=== PATIENT | male | born 1970 | race Caucasian/White ===

== ENCOUNTER → 2020-05-15 08:18 | Outpatient (BNVA) | payer MEDICAID, SELFPAY | PROVIDERS: PCP Internal Medicine; Visit Provider Orthopaedic Surgery | DX: G57.93 Unspecified mononeuropathy of bilateral lower limbs (principal) | CPT/HCPCS: 99212 ==

== ENCOUNTER 2020-05-23 09:08 | Outpatient (REF) | payer MEDICAID, SELFPAY ==
--- NOTE | 2020-05-23 09:42 | XR_ITS ---
EXAMINATION: XR WRIST, RIGHT CLINICAL INFORMATION: Right wrist pain. COMPARISON: No priors. TECHNIQUE: PA, lateral, and oblique views of the right wrist. FINDINGS: The bones and soft tissues are normal. No fracture. Alignment is anatomic with normal joint spaces. No erosions or abnormal soft tissue calcifications. Bone density is preserved. No lytic or blastic osseous lesions. XR/XR wrist RT min 3V IMPRESSION: Right wrist: No fracture or malalignment.
== END 2020-05-23 09:09 | disposition home or self-care (01) ==
LOC: HO.HOSX 09:08
PROVIDERS: Visit Provider Orthopaedic Surgery
DX: M67.431 Ganglion, right wrist (principal); M79.601 Pain in right arm
CPT/HCPCS: 73110; 99202

== ENCOUNTER 2020-06-19 07:09 | Outpatient (REF) | payer MEDICAID, SELFPAY ==
--- NOTE | 2020-06-19 | MR_ITS ---
EXAMINATION: MR LUMBAR SPINE WITHOUT CONTRAST CLINICAL INFORMATION: Left radiculopathy. COMPARISON: Lumbar spine x-ray 08/14/2017 TECHNIQUE: MRI of the lumbar spine was obtained using routine sequences without contrast. FINDINGS: There is normal lumbar lordosis. The vertebral heights, alignment and disc heights are normal. There is minimal disc desiccation change at the L5-S1 disc level. The T12-L1, L1-L2, L2-L3, and L3-L4 disc levels are unremarkable. At L4-L5 disc level, there is minimal flattening of the ventral thecal sac from minimal bulge but no spinal canal stenosis. The neural foramina are patent bilaterally. At L5-S1 disc level, there is minimal disc bulge flattening the ventral thecal sac but no disc herniation seen. The bone marrow signal is slightly heterogeneous but no focal lesion seen. Conus medullaris terminates at L1 and appears normal in morphology. The paravertebral soft tissues are normal. MR/MR lumbar spine wo con IMPRESSION: Mild disc desiccation change at L5-S1 disc level with minimal bulges at L4-L5 and L5-S1 disc levels.
== END 2020-06-19 07:10 | disposition home or self-care (01) ==
LOC: HO.MRI 07:09
PROVIDERS: Visit Provider Internal Medicine
DX: M54.16 Radiculopathy, lumbar region (principal)
CPT/HCPCS: 72148

== ENCOUNTER 2020-07-11 09:28 | Outpatient (REF) | payer MEDICAID, SELFPAY ==
--- NOTE | 2020-07-11 09:45 | EMG_ITS ---
Right median and ulnar motor and sensory studies were performed. Right radial sensory study was performed and paraspinal muscles were tested. IMPRESSION: 1. Mild right median neuropathy across carpal tunnel. 2. Mild right ulnar neuropathy across cubital tunnel. MD NIKO Bella/ALANNAH / [id number]
== END 2020-07-11 09:29 | disposition home or self-care (01) ==
LOC: HO.NEURO 09:28
PROVIDERS: Visit Provider Orthopaedic Surgery
DX: R20.0 Anesthesia of skin (principal); R20.2 Paresthesia of skin
CPT/HCPCS: 95886; 95909

== ENCOUNTER → 2020-07-23 10:35 | Outpatient (BNVA) | payer MEDICAID, SELFPAY | PROVIDERS: PCP Internal Medicine; Visit Provider Orthopaedic Surgery | DX: M79.601 Pain in right arm (principal); M67.431 Ganglion, right wrist; G56.01 Carpal tunnel syndrome, right upper limb; G56.21 Lesion of ulnar nerve, right upper limb | CPT/HCPCS: 99212 ==

== ENCOUNTER → 2020-09-03 09:51 | Outpatient (BNVA) | payer MEDICAID, SELFPAY | PROVIDERS: Visit Provider Physician Assistant | DX: M67.431 Ganglion, right wrist (principal); R20.0 Anesthesia of skin; R20.2 Paresthesia of skin; G56.01 Carpal tunnel syndrome, right upper limb; G56.21 Lesion of ulnar nerve, right upper limb | CPT/HCPCS: 99212 ==

== ENCOUNTER 2020-09-05 08:12 | Day surgery (SDC) | payer MEDICAID, SELFPAY ==
[2020-08-08 15:15] VITALS: BMI 20.7
--- NOTE | 2020-08-14 10:47 | P.CONAN_ITS ---
HPI - Anesthesia Eval Consult details Narrative: 50yo M for Cubital Tunnel Release with Verse Ulmar Nerve Transpos ition PMFSH Active Problems Active Problems: All Active Problems (Updated 08/08/20 @ 15:16 by Micaela Andino) Ganglion cyst of volar aspect of right wrist (Acute) Right upper limb pain (Acute) Numbness and tingling in right hand (Acute) Carpal tunnel syndrome of right wrist (Acute) Cubital tunnel syndrome on right (Acute) Past Medical History Medical History (Updated 08/08/20 @ 15:16 by Micaela Andino) Bulging lumbar disc Surgical History Surgical History (Updated 08/08/20 @ 15:16 by Micaela Andino) H/O arthroscopy of left knee Social History Social History (Updated 08/08/20 @ 15:19 by Micaela Andino) Smoking Status: Current every day smoker Packs Per Day: 1 Cigarettes Per Day: 20.0 Years Smoked: 34 Use of substances other than those prescribed or required for medical reasons: No Have you been hit, kicked, punched, or otherwise hurt by someone within the past year? 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
[2020-09-05 08:42] VITALS: BP 158/97; PULSE 99; RESP 20; TEMP 36.3; O2SAT 96
[2020-09-05] MEDS: Lactated Ringers 1,000 ML 100 ML IVCONT (09:01)
--- NOTE | 2020-09-05 10:42 | HO.ANESPROP2 ---
[facility] Active Problems Active Problems: All Active Problems (Updated 08/08/20 @ 15:16 by Micaela Andino) Ganglion cyst of volar aspect of right wrist (Acute) Right upper limb pain (Acute) Numbness and tingling in right hand (Acute) Carpal tunnel syndrome of right wrist (Acute) Cubital tunnel syndrome on right (Acute) Past Medical History Medical History Bulging lumbar disc Surgical History Surgical History H/O arthroscopy of left knee Social History Social History Are you a primary customer care associate to a significant other at home: No Do you presently have visiting nurse or other home services: No Smoking Status: Current every day smoker Packs Per Day: 1 Cigarettes Per Day: 20.0 Years Smoked: 34 Use of substances other than those prescribed or required for medical reasons: No Have you been hit, kicked, punched, or otherwise hurt by someone within the past year? 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 Allergies Allergy/AdvReac Type Severity Reaction Status Date / Time No Known Allergies Allergy Verified 07/23/20 11:21 Active Medications: Current Medications Generic Name Dose Route Start Last Admin Trade Name Freq PRN Reason Stop Dose Admin Albuterol Sulfate 2.5 mg 09/05/20 08:40 Albuterol Sulfate (0.083%) 2.5 Mg/3 Ml Vial.Neb INHALE ONCE PRN Shortness of Breath/Wheezing Lactated Ringer's 1,000 mls @ 20 mls/hr 09/04/20 14:15 Lr IVCONT .Q24H JOHNATHAN Lactated Ringer's 1,000 mls @ 100 mls/hr 09/05/20 08:45 09/05/20 09:01 Lr IVCONT 100 mls/hr .Q10H JOHNATHAN Administration Home Medications Medication Instructions Recorded Confirmed Last Taken Type No Known Home Meds 05/15/20 08/08/20 Unknown History Exam Exam Date and Time: September 05, 2020 1042 Height,Weight and Vital Signs: Height 5 ft 10 in Weight 65.771 kg Last Vital Signs Temp 97.4 F 09/05/20 08:42 Pulse 99 09/05/20 08:42 Resp 20 09/05/20 08:42 BP 158/97 H 09/05/20 08:42 Pulse Ox 96 09/05/20 08:42 Airway Mallampati Class: II TM Dist: >3cm Neck ROM: Full Loose/Missing/Broken Teeth: Yes (2 teeth remaining) Assessment and Plan Assessment Anesthesia Assessment: Anesthesia Plan Discussed, Smoking Cess. Discussed and Chart Reviewed Final Anesthetic Review NPO: Yes ASA Class: II Final Preanesthetic Review: No Changes in Pt Med Stat, Meds/Allgs Chart Reviewed, Consent Obtained/Reviewed and Anes Risks/Benef Reviewed Patient Risk: Low Procedure Risk: Low Anesthetic Plan Anesthetic Plan: GA Disposition: Standard PACU
--- NOTE | 2020-09-05 11:11 | W.PM.OPN ---
Operative Note Operative Note Date of Service: 09/05/20 Narrative: Operative Note Narrative: Preop diagnosis: 1. Right Cubital tunnel syndrome 2. Right carpal tunnel syndrome Postop diagnosis: Same Procedure: 1. Right Cubital Tunnel Release 2. Right carpal tunnel release Surgeon: Theresa Mathis MD Anesthesia: General Findings: Thickened transverse carpal ligament. Thickening and fibrosis about the ulnar nerve at the cubital tunnel Implants: none Tourniquet time: 24 minutes EBL: 5.0 ml Specimen: none Drains: None Complications: None Disposition: Brought to the recovery room in stable condition Plan: Follow-up in 10-14 days for wound check, and suture removal Indications: The patient is 50 years old with right carpal tunnel syndrome and right cubital tunnel syndrome unresponsive to non operative management . The risks and benefits of operative treatment, including but not limited to risk of damage to blood vessels, nerves, tendons, infection, recurrence, persistent pain or numbness, incomplete resolution of preoperative symptoms, or need for further surgery were discussed with the patient and they wished to proceed with surgery. Procedure: Once consent was obtained patient was brought back to the operating suite and placed in the operating table in a supine position. Perioperative antibiotics and anesthesia was administered by the anesthesia team. The limb was prepped and draped in a standard surgical fashion, and a sterile tourniquet applied to the proximal aspect of the right upper extremity. The limb was elevated exsanguinated with Esmarch bandage and the tourniquet inflated to 250 mm of mercury for a total tourniquet time of 24 minutes. A 6 cm gently curved but longitudinally oriented incision was made centered over the cubital tunnel of the right upper extremity. Incision was made through the skin to the subcutaneous tissues using a # 15 Blade. I then dissected down to the level of the medial epicondyle and the cubital tunnel using tenotomy scissors. Care was taken to protect the lateral antebrachial cutaneous nerve. The ulnar nerve was identified just posterior to the medial intermuscular septum. Small vessel loop was passed behind the ulnar nerve and used to apply gentle traction to facilitate our release. The ulnar nerve was released in a proximal to distal direction using tenotomy in iris scissors while directly visualizing and protecting the ulnar nerve. Thickening and fibrosis was appreciated about the ulnar nerve as it passed through the cubital tunnel. The ulnar nerve was assessed as I passed the elbow through full flexion and extension and was found to remain stable within its groove. Once assured that we had a good block, a 1.5 cm longitudinal incision was made centered over the right carpal tunnel. The incision was made through the skin to the subcutaneous tissues using a #15 blade. Dissection was made down to the level of the transverse carpal ligament with care being taken to protect the palmar cutaneous nerve. Once the transverse carpal ligament was clearly visualized, a longitudinal incision was made in the transverse carpal ligament 1st using a #15 blade, then using tenotomy scissors under direct visualization. Care was taken to look for and protect the motor branch of the median nerve when seen in this area. Once satisfied with our carpal tunnel release the wound was irrigated with normal saline. At this point the tourniquet was deflated and hemostasis obtained with a brief period of local pressure and bipolar electrocautery. The wound was copiously irrigated with normal saline. The subcutaneous layer was closed with 4-0 Vicryl suture, and the skin edges were reapproximated with 5-0 nylon suture. The wound was infiltrated with some 0.25% plain Marcaine for postop pain control and sterile dressings and a posterior splint was applied. The patient appears to have tolerated the procedure well and with no complications. All digits were well vascularized conclusion of the case.
[2020-09-05 12:49] VITALS: BP 139/91; PULSE 80; RESP 20; TEMP 36.4; O2SAT 100
--- NOTE | 2020-09-05 12:53 | MHC.SHP ---
Pre-Procedural Eval Section B Chief Complaint: carpal tunnel,ulnar nerve,right arm pain Allergies: Allergies Allergy/AdvReac Type Severity Reaction Status Date / Time No Known Allergies Allergy Verified 07/23/20 11:21 Plan I have reviewed the history and physical and performed a pertinent physical examination on my patient. No changes have occurred unless specified.
[2020-09-05 12:54] VITALS: BP 121/84; PULSE 79; RESP 18; O2SAT 99
[2020-09-05 12:59] VITALS: BP 128/88; PULSE 80; RESP 16; O2SAT 100
[2020-09-05 13:04] VITALS: BP 136/79; PULSE 89; RESP 18; O2SAT 100
[2020-09-05 13:19] VITALS: BP 143/82; PULSE 82; RESP 16; O2SAT 100
== END 2020-09-05 13:48 | disposition home or self-care (01) ==
PROVIDERS: PCP Internal Medicine; Visit Provider Orthopaedic Surgery
PROC: (CPT 64718; principal; 2020-09-05 11:00)
PROC: (CPT 64721; 2020-09-05 11:00)
DX: G56.01 Carpal tunnel syndrome, right upper limb (principal); G56.21 Lesion of ulnar nerve, right upper limb; F17.210 Nicotine dependence, cigarettes, uncomplicated
CPT/HCPCS: 64721; 64718; J0690; J1100; J2250; J2370; J2405; J3010

== ENCOUNTER → 2020-09-16 09:58 | Outpatient (BNVA) | payer MEDICAID, SELFPAY | PROVIDERS: Visit Provider Orthopaedic Surgery | DX: G56.01 Carpal tunnel syndrome, right upper limb (principal); G56.21 Lesion of ulnar nerve, right upper limb | CPT/HCPCS: 99212 ==

== ENCOUNTER 2020-10-31 08:03 | Outpatient (REF) | payer MEDICAID, SELFPAY ==
--- NOTE | 2020-10-31 08:21 | EMG_ITS ---
Left median and ulnar motor and sensory studies were performed. Left radial sensory study was performed and paraspinal muscles were tested with a needle. IMPRESSION: 1. [id number] left median neuropathy across carpal tunnel. 2. Mild left ulnar neuropathy across cubital tunnel. 3. Underlying axonal sensory motor peripheral neuropathy. MD NIKO Bella/ALANNAH / [id number]
== END 2020-10-31 08:04 | disposition home or self-care (01) ==
LOC: HO.NEURO 08:03
PROVIDERS: PCP Internal Medicine; Visit Provider Orthopaedic Surgery
DX: R20.0 Anesthesia of skin (principal); R20.2 Paresthesia of skin
CPT/HCPCS: 95886; 95909

== ENCOUNTER → 2020-11-06 11:39 | Outpatient (BNVA) | payer MEDICAID, SELFPAY | PROVIDERS: Visit Provider Orthopaedic Surgery ==

== ENCOUNTER 2020-12-16 08:30 | Outpatient (RCR) | payer MEDICAID, SELFPAY ==
--- NOTE | 2020-12-16 09:45 | MHC.OT.OD ---
[address] [phone] F: [phone] Occupational Therapy Daily Note Start Time: 0800 End Time: 844 Visit Duration: 45 Billable Time: 45 Date of Evaluation: 11/13/20 Treatments to Date: 7 Cancellations to Date: 1 No Shows to Date: Authorized Treatment: Insurance End Date: Subjective: Pt reports he missed his last appt due to his transportation not showing up. Right dorsal ring PP abrasion this AM.. must have been while I was walking Pt reports cont night numbness with sleeping with elbows flexed. Pain Score: 3 Pain Location: right lateral elbow>medial and carpal wrist Objective: Pt walking with normal arm swing. Right hand PP lightly bloodied RF abrasions noted. Pt washed hands at sink. Plastic bandaid applied. Pt demo HEP , pectoral ms stretch , scap add. Pt added arm circles. Pt practice with tendon glides and nerve glides. Practice with P/AROM for wrist ext bilateral Recommended Heley Middleton elbow brace, [employer] , [employer]. Tests and Measures: 01/16/21 Block and Box test right 56 blocks....left dominant 59 blocks AROM wrist 55/60 deg bilateral 55 deg wrist ext. Plastic Bubble Packer right 85 lb ......dominant left 95 lb Lat pinch 13 lb Quick DASH 20 pts Quick DASH 47 pts Assessment: C/o pain significantly improved to low at end ranges of right elbow and wrist flexion and ext. ROM, and strength WNL. Sensation on right improved. Pt reports continued night bilateral paresthesia with elbow flexion. Goals met for ROM,dexterity ,hand strength and function. Con't pain limiting function of non dominant right hand and stiff wrist Short Term Goals: Demo indep with AROM , tendon glides and submax nerve glide ex Met Demo indep with ulnar nerve protection tech with daily activities Block and box test with > 50 blocks in 60 sec Met Quick DASH to <40 pts Met Senior Care Goals: Dec complaint of right wrist and elbow pain to less than 3/10 with daily activities with modifications as needed Right wrist flexion to 60 deg (considered met 55 deg bilateral) Right disc jockey to >45 lb Met Lat pinch to > 8 lb Met Quick DASH to <30 pts Met Plan of Care: D/C D/C Today: Treatment Plan: Therapeutic Exercise Therapeutic Activity Home Exercise Program Splinting Neuro Re-ed Patient Education Desensitization/Sensory Re-ed ADL Training Ultrasound NMES Paraffin Fluidotherapy MHP Cold Packs Joint Mobilization Soft Tissue Mobilization Kinesiotaping Treatment Plan Comments: Electronically Signed By: Valencia Haynes OT CHT CLT Reviewed/agree with student documentation: N/A Therapist:
== END 2020-12-16 09:46 | disposition other institution (70) ==
LOC: HO.OT 08:30
PROVIDERS: PCP Internal Medicine; Visit Provider Orthopaedic Surgery
DX: M79.601 Pain in right arm (principal); G56.01 Carpal tunnel syndrome, right upper limb; G56.21 Lesion of ulnar nerve, right upper limb
CPT/HCPCS: 29130; 97035; 97110; 97140; 97167; 97760

== ENCOUNTER → 2020-12-23 11:09 | Outpatient (BNVA) | payer MEDICAID, SELFPAY | PROVIDERS: Visit Provider Orthopaedic Surgery | DX: G56.23 Lesion of ulnar nerve, bilateral upper limbs (principal); G56.03 Carpal tunnel syndrome, bilateral upper limbs | CPT/HCPCS: 99212 ==

== ENCOUNTER 2020-12-29 11:40 | Emergency (ER) | payer MEDICAID, SELFPAY ==
--- NOTE | ~2020-12-29 | XR_ITS ---
EXAMINATION: CR CHEST CLINICAL INFORMATION: Chest pain. COMPARISON: Chest x-ray dated 09/02/2019. TECHNIQUE: AP portable upright view of the chest was obtained. FINDINGS: EKG leads overlie the chest. The cardiomediastinal silhouette is within normal limits in size. Lungs bilaterally are symmetrically mildly hyperinflated with thickening of the central airways, perhaps related to reactive airways disease/bronchitis. No focal consolidation, effusion or pneumothorax is seen. Bony structures are unremarkable. XR/XR chest 1V IMPRESSION: Lung findings suggestive of reactive airways disease or bronchitis. Clinical correlation requested.
[2020-12-29 11:50] VITALS: BP 126/83; BP 133/85; PULSE 86; PULSE 96; RESP 18; TEMP 36.9; O2SAT 98; BMI 15.7
--- NOTE | 2020-12-29 11:54 | ECG_ITS ---
Test Reason : CHEST PAIN Blood Pressure : / mmHG Vent. Rate : 080 BPM Atrial Rate : 080 BPM P-R Int : 162 ms QRS Dur : 094 ms QT Int : 396 ms P-R-T Axes : 059 066 057 degrees QTc Int : 456 ms Normal sinus rhythm Normal ECG When compared with ECG of 02-SEP-2019 18:38, No significant change was found Referred By: Generic ED Physician Electronically Signed By:SALBADOR CORBIN
--- NOTE | 2020-12-29 12:30 | ED_ITS ---
HPI - General Adult General Chief complaint: Nausea/Vomiting/Diarrhea Stated complaint: vomiting/chest pain Time Seen by Provider: 12/29/20 12:30 Source: patient Mode of arrival: ambulatory Limitations: no limitations History of Present Illness HPI narrative: [age] year male presents to ED for left-sided chest pain ( acid burning sensation) for 2 days and also 3 episodes of vomiting tad blood over the past 2 days after going on an alcohol drinking binge. Patient states 2 days ago he was drinking alcohol and then had 2 episodes of vomiting blood. Patient states this [place] around [place] and had 1 episode of vomiting tad blood. Patient denies any rectal bleeding, fever, or chills. Patient states no shortness of breath. Related Data Previous Rx's Medication Instructions Recorded hydrocodone 5 mg-acetaminophen 325 1 - 2 tab PO Q6H PRN #20 tab 09/05/20 mg tablet aluminum-mag hydroxide-simethicone 10 ml PO Q6H PRN #30 ml 12/29/20 200 mg-200 mg-20 mg/5 mL oral susp (Maalox Advanced) famotidine 20 mg tablet (Pepcid) 20 mg PO BID 10 Days #20 tab 12/29/20 Allergies Allergy/AdvReac Type Severity Reaction Status Date / Time No Known Allergies Allergy Verified 12/29/20 11:50 Review of Systems Review of Systems: Yes all other systems are reviewed and are negative Constitutional: Constitutional: Reports as per HPI and Reports no additional constitutional complaints Eyes: Eyes: Reports as per HPI and Reports no additional eye complaints ENT: Reports system reviewed and no additional complaints, except as documented and Reports as per HPI Cardiovascular: Cardiovascular: Reports as per HPI, Reports no additional cardiovascular complaints and Reports chest pain (left sided chest pain descrbed as acid) Respiratory: Respiratory: Reports as per HPI and Reports no additional respiratory complaints Gastrointestinal: Gastrointestinal: Reports as per HPI and Reports no additional gastrointestinal complaints Genitourinary: Genitourinary: Reports no additional male genitourinary complaints and Reports as per HPI Musculoskeletal: Musculoskeletal: Reports no additional musculoskeletal comp laints and Reports as per HPI Neurologic: Reports system reviewed and no additional complaints, except as documented and Reports as per HPI Psychiatric: Psychiatric: Reports no additional psychiatric complaints and R eports as per HPI PMFSH Past Medical History Medical History Bulging lumbar disc Surgical History H/O arthroscopy of left knee Social History Social History Are you a primary career services manager to a significant other at home: No Do you presently have visiting nurse or other home services: No Alcohol intake: current Alcohol intake frequency: a few times a month Patient Tobacco Use Status: Current everyday Tobacco user Cigarette Packs Per Day: 1 Cigarettes Per Day: 20.0 Years Smoked: 34 Use of substances other than those prescribed or required for medical reasons: No Advance Directives: No Advance Directives Information Provided: No 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al status: unemployed 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 Physical Exam Vital Signs: Vital Signs: Last Vital Signs Temp 98.5 F 12/29/20 11:50 Pulse 72 12/29/20 14:00 Resp 18 12/29/20 14:00 BP 126/80 12/29/20 14:00 Pulse Ox 99 12/29/20 14:00 Body Mass Index 15.7 Const: General: cooperative, healthy appearing, comfortable, no acute distress, well developed and awake Orientation/consciousness: patient oriented x3 HENMT: Head: Yes normal to inspection, Yes No palpable skull fracture present, Yes normocephalic, Yes atraumatic and No abrasion Eyes: General: appearance normal, both eyes and all related structures Neck: Neck: Yes normal visual inspection, Yes full ROM, Yes no lymphadenopathy, Yes no meningeal signs, Yes trachea midline, Yes supple and No tender Chest: Chest palpation & inspection: normal inspection of the chest and normal palpation of entire chest wall Resp: Effort & Inspection: normal respiratory effort and able to speak in complete sentences Auscultation: clear to auscultation bilaterally Cardio: Jugular venous distension: no JVD Heart sounds: S1 normal heart sound present and S2 normal heart sound present GI: Inspection: Yes normal to inspection and No abdominal wall ecchymosis Palpation (GI): Soft to palpation, not firm, nontender, no guarding and not rigid : General: No CVA tenderness and Yes no CVA tenderness Back/Spine/Pelvis: Back: no CVA tenderness, No CVA tenderness and No back tenderness Skin: General skin exam: no rashes or lesions noted and elasticity normal Neuro: General: patient oriented x3, gait normal, no meningeal signs and CN's II-XI intact bilaterally Cranial nerves: Yes CN's II-XII intact bilaterally Extrem: General: Yes normal to inspection and Yes full ROM Psych: Appearance: grossly normal, well kempt and not disheveled Course Course Course Narrative: Patient have EKG, troponin, and be given GI cocktail. EKG ordered. Reevaluation(s) Reevaluation #1: After a GI cocktail patient states he no longer has any abdominal or chest pain. No longer nauseous. Patient like to be discharged. Rectal exam was done. Waiting for stool guaiac. Patient did not have 1 episode of emesis during ED visit. Patient watching television on bed. Patient not any distress Time: 20:26 Reevaluation #2: Spoke with Dr. Arreola of trade sales assistant and she recommended patient should be admitted at least for endoscope eat due to medical history of vomiting blood and history of alcoholism although presently patient is hemodynamically stable. She states if patient does not want to be admitted patient should be discharged with PPI. I discussed admission with patient and patient refused admission and preferred to be discharged and follow-up as outpatient. Patient was educated on Jacquelyn Chacko Tear or Boerheave, but he refused. Patient informed to return to the ED immediately if symptoms worsen. Stool guaiac negative. Time: 15:08 Reevaluation #3: Upon re-evaluation of labs I have realized there was no troponin lab results. troponin was ordered but did not go to the system ( s [facility]) so it was not done. . Patient was called and informed to come back to the ER so he can have troponin ( due to him stating chest pain) drawn but patient states he lives far and does not want to come back to the ED. Patient was informed troponin usually done to make sure he was not having a heart attack. . Patient was informed he should go to the nearest hospital near his house to get troponin done and patient agreeable with plan. Symptoms most likely were due to Gastrists and very unlikely MA, but due to chest pain complaint I wanted troponin to be done. Time: 17:08 Medical Decision Making MDM Narrative Medical decision making narrative: Alcoholic gastritis Lab Data Result diagrams: 12/29/20 12:26 12/29/20 12: Labs: Lab Results 08/15/21 08/15/21 08/15/21 Range/Units 12:26 12:26 12:26 WBC 7.0 (4.8-10.8) X10*3/uL RBC 3.53 L (4.60-5.80) X10*6/uL Hgb 12.4 L (14.0-18.0) g/dl Hct 35.4 L (42-52) % MCV 100.3 H (80-98) fL MCH 35.1 H (27.0-33.0) pg MCHC 35.0 (31.0-36.0) g/dl RDW 14.1 (11.0-16.0) % Plt Count 238 (160-400) X10*3/uL MPV 8.8 L (9.4-12.4) fL Immature Gran % (Auto) 0.6 H (0.0-0.4) % Neut % (Auto) 51.5 (45-73) % Lymph % (Auto) 32.9 (20-40) % [place] % (Auto) 11.9 H (2-11) % Eos % (Auto) 2.4 (0-4) % Baso % (Auto) 0.7 (0-2) % Lymph # (Auto) 2.3 (1.2-4.9) X10*3/uL [place] # (Auto) 0.8 (0.1-1.2) X10*3/uL Eos # (Auto) 0.2 (0.0-0.4) X10*3/uL Baso # (Auto) 0.1 (0.0-0.2) X10*3/uL Abs Immat Gran (auto) 0.04 H (0.00-0.03) X10*3/uL Absolute Neuts (auto) 3.6 (2.0-8.3) X10*3/uL Absolute Nucleated RBC 0.000 (0.0-0.012) X10*3/uL Nucleated RBC % (auto) 0.0 (0.0-0.2) /100WBC PT 11.8 (9.9-13.0) SEC INR 1.0 (0.9-1.1) APTT 34.8 (24.1-38.0) SEC Sodium 144 (135-145) mmol/L Potassium 4.1 (3.3-5.1) mmol/L Chloride 107 (96-108) mmol/L Carbon Dioxide 25 (22-29) mmol/L Anion Gap 16 (12-20) BUN 7 L (9-16) mg/dL Creatinine 0.85 (0.5-1.4) mg/dL Estim Creat Clear Calc 102.2 Estimated GFR > 60 Random Glucose 86 (60-115) mg/dL Calcium 9.1 (8.4-10.2) mg/dL Total Bilirubin 0.3 (0.0-1.0) mg/dL Direct Bilirubin 0.2 (0.0-0.5) mg/dL AST 29 (5-37) U/L ALT 13 (0-40) U/L Alkaline Phosphatase 60 (39-117) U/L Total Protein 7.0 (6.5-8.0) g/dL Albumin 3.9 (3.5-5.0) g/dL Lipase (8-78) U/L Stool Occult Blood (NEGATIVE) Coronavirus (PCR) (Negative) Influenza Type A (PCR) (Negative) Influenza Type B (PCR) (Negative) RSV RNA Qual (PCR) (Negative) 12/29/20 12/29/20 12/29/20 Range/Units 12:26 12:26 14:20 WBC (4.8-10.8) X10*3/uL RBC (4.60-5.80) X10*6/uL Hgb (14.0-18.0) g/dl Hct (42-52) % MCV (80-98) fL MCH (27.0-33.0) pg MCHC (31.0-36.0) g/dl RDW (11.0-16.0) % Plt Count (160-400) X10*3/uL MPV (9.4-12.4) fL Immature Gran % (Auto) (0.0-0.4) % Neut % (Auto) (45-73) % Lymph % (Auto) (20-40) % [place] % (Auto) (2-11) % Eos % (Auto) (0-4) % Baso % (Auto) (0-2) % Lymph # (Auto) (1.2-4.9) X10*3/uL [place] # (Auto) (0.1-1.2) X10*3/uL Eos # (Auto) (0.0-0.4) X10*3/uL Baso # (Auto) (0.0-0.2) X10*3/uL Abs Immat Gran (auto) (0.00-0.03) X10*3/uL Absolute Neuts (auto) (2.0-8.3) X10*3/uL Absolute Nucleated RBC (0.0-0.012) X10*3/uL Nucleated RBC % (auto) (0.0-0.2) /100WBC PT (9.9-13.0) SEC INR (0.9-1.1) APTT (24.1-38.0) SEC Sodium (135-145) mmol/L Potassium (3.3-5.1) mmol/L Chloride (96-108) mmol/L Carbon Dioxide (22-29) mmol/L Anion Gap (12-20) BUN (9-16) mg/dL Creatinine (0.5-1.4) mg/dL Estim Creat Clear Calc Estimated GFR Random Glucose (60-115) mg/dL Calcium (8.4-10.2) mg/dL Total Bilirubin (0.0-1.0) mg/dL Direct Bilirubin (0.0-0.5) mg/dL AST (5-37) U/L ALT (0-40) U/L Alkaline Phosphatase (39-117) U/L Total Protein (6.5-8.0) g/dL Albumin (3.5-5.0) g/dL Lipase 158 H (8-78) U/L Stool Occult Blood NEGATIVE (NEGATIVE) Coronavirus (PCR) NEGATIVE (Negative) Influenza Type A (PCR) NEGATIVE (Negative) Influenza Type B (PCR) NEGATIVE (Negative) RSV RNA Qual (PCR) NEGATIVE (Negative) ECG Data Interpretation: Normal sinus rhythm. Normal EKG. Ventricular rate 80. Pr interval 162. QRS 94. QTC 456. Negative STEMI Discharge Plan Discharge Clinical Impression: Acute alcoholic gastritis Patient Disposition: Home, Self-Care Instructions: Gastritis (ED) Additional Instructions: You refused to be admitted to the hospital for endoscopy. You will be discharged with PPIs. Return to the ED immediately for abdominal pain, vomiting blood, rectal bleeding, chest pain, shortness of breath, weakness, dizziness, or any other concerning symptoms. Follow up with PCP Prescriptions: New famotidine [Pepcid] 20 mg tablet 20 mg PO BID 10 Days Qty: 20 RF: 0 alum-mag hydroxide-simeth [Maalox Advanced] 200-200-20 mg/5 mL suspension 10 ml PO Q6H PRN (Reason: indigestion) Qty: 30 RF: 0 No Action hydrocodone-acetaminophen 5-325 mg tablet 1 - 2 tab PO Q6H PRN (Reason: pain) Qty: 20 RF: 0 Referrals: Aleida Arreola MD [Physician] - 2 days (Alcoholic and vomitting blood. Will need Endoscopy.) Interventions: ED Discharge Assessment Last Done: 12/29/20 15:25 Discharge Date/Time: 12/29/20 15:26 Print Language: Tongan
[2020-12-29 12:32] LABS: Basophils Absolute Auto 0.1 X10*3/uL (0.0-0.2); Basophils Percent Auto 0.7 % (0-2); Eosinophils Absolute Auto 0.2 X10*3/uL (0.0-0.4); Eosinophils Percent Auto 2.4 % (0-4); Hematocrit 35.4 % (42-52); Hemoglobin 12.4 g/dl (14.0-18.0); Imm Gran Abs Auto 0.04 X10*3/uL (0.00-0.03); Imm Gran Pct Auto 0.6 % (0.0-0.4); Lymphocytes Absolute Auto 2.3 X10*3/uL (1.2-4.9); Lymphocytes Percent Auto 32.9 % (20-40); MANUAL DIFF FLAG NO; Mean Corpuscular Hemoglobin 35.1 pg (27.0-33.0); Mean Corpuscular Volume 100.3 fL (80-98); Mean Platelet Volume 8.8 fL (9.4-12.4); Monocytes Absolute Auto 0.8 X10*3/uL (0.1-1.2); Monocytes Percent Auto 11.9 % (2-11); Neutrophils Absolute Auto 3.6 X10*3/uL (2.0-8.3); Neutrophils Percent Auto 51.5 % (45-73); Platelet Count 238 X10*3/uL (160-400); Red Blood Count 3.53 X10*6/uL (4.60-5.80); Red Cell Distribution Width 14.1 % (11.0-16.0)
[2020-12-29 12:46] LABS: Prothrombin Time 11.8 SEC (9.9-13.0)
[2020-12-29 12:48] LABS: Partial Thromboplastin Time 34.8 SEC (24.1-38.0)
[2020-12-29 12:58] LABS: Lipase 158 U/L (8-78)
[2020-12-29 12:59] LABS: Alanine Aminotransferase 13 U/L (0-40); Albumin Level 3.9 g/dL (3.5-5.0); Alkaline Phosphatase 60 U/L (39-117); Anion Gap 16 (12-20); Aspartate Amino Transferase 29 U/L (5-37); Bilirubin Direct 0.2 mg/dL (0.0-0.5); Bilirubin Total 0.3 mg/dL (0.0-1.0); Blood Urea Nitrogen 7 mg/dL (9-16); Calcium 9.1 mg/dL (8.4-10.2); Carbon Dioxide 25 mmol/L (22-29); Chloride 107 mmol/L (96-108); Creatinine Clr Calc Pharmacy 102.2; Estimated Glomerular Filt Rate > 60; Glucose Random 86 mg/dL (60-115); Potassium 4.1 mmol/L (3.3-5.1); Sodium 144 mmol/L (135-145)
[2020-12-29 13:05] VITALS: BP 136/85; PULSE 74; RESP 18; O2SAT 100
[2020-12-29] MEDS: 0.9 % Sodium Chloride 1,000 ML 999 ML IV (13:29)
[2020-12-29] MEDS: Lidocaine HCl Viscous 2 % 15 ML SOLUTION MUCOUS MEM (13:29)
[2020-12-29] MEDS: Famotidine/PF 20 MG/2 ML VIAL IVPUSH (13:29)
[2020-12-29] MEDS: PHENobarb/Hyoscy/Atropine/Scop 10 ML ELIXIR PO (13:29)
[2020-12-29] MEDS: Magnesium Hydrox/Alum Hydrox 30 ML ORAL.SUSP PO (13:29)
[2020-12-29 13:35] LABS: Influenza A PCR NEGATIVE (Negative); Influenza B PCR NEGATIVE (Negative); Resp Syncy Virus RNA Qual PCR NEGATIVE (Negative); SARS COV2 PCR INHOUSE NEGATIVE (Negative)
--- NOTE | 2020-12-29 13:38 | PC.NURSE ---
call brotherLex, for ride home. [phone] Pt tolerated rectal exam. call out to GI.
[2020-12-29 14:00] VITALS: BP 126/80; PULSE 72; RESP 18; O2SAT 99
[2020-12-29 14:26] LABS: OBS Int Ctl Valid YES; OBS1 NEGATIVE (NEGATIVE)
== END 2020-12-29 15:26 | disposition home or self-care (01) ==
PROVIDERS: Physician Assistant; Emergency Provider Emergency Medicine; PCP Internal Medicine
DX: K29.20 Alcoholic gastritis without bleeding (principal); R11.2 Nausea with vomiting, unspecified; F17.210 Nicotine dependence, cigarettes, uncomplicated; Z71.6 Tobacco abuse counseling; Z79.899 Other long term (current) drug therapy; Z20.822 Contact with and (suspected) exposure to COVID-19
CPT/HCPCS: 0241U; 36415; 71045; 80053; 82248; 82272; 83690; 85025; 85610; 85730; 93005; 96361; 96374; 99284

== ENCOUNTER 2021-01-01 13:20 | Emergency (ER) | payer MEDICAID, SELFPAY ==
[2021-01-01 13:30] VITALS: BP 130/80; PULSE 91; O2SAT 97
== END 2021-01-01 16:56 | disposition left against medical advice (07) ==
PROVIDERS: Emergency Provider Emergency Medicine
DX: R11.10 Vomiting, unspecified (principal)

== ENCOUNTER → 2021-01-29 14:36 | Outpatient (BNVA) | payer MEDICAID, SELFPAY | PROVIDERS: Visit Provider Orthopaedic Surgery | DX: G56.01 Carpal tunnel syndrome, right upper limb (principal); M51.36 Other intervertebral disc degeneration, lumbar region; F17.210 Nicotine dependence, cigarettes, uncomplicated | CPT/HCPCS: 99212 ==

== ENCOUNTER 2021-02-11 05:56 | Day surgery (SDC) | payer MEDICAID, SELFPAY ==
--- NOTE | 2021-02-10 09:00 | P.CONAN_ITS ---
Documented by User: Mary Huerta NP 02/10/21 09:08 HPI - Anesthesia Eval Consult details Narrative: 51yo M for Left Carpal Tunnel Release, Left Ulnar Release vs Transposition s/p Right side 08/2020 with GA-LMA 5 +ETOH: 12/2020 [facility] [place] ED with acute alcoholic gastritis with vomiting tad blood x 1. Pt declined admission and d/c'd with ppi. FORMERLY [facility], [facility] Active Problems Active Problems: All Active Problems (Updated 01/02/21 @ 16:17 by Sharita Gonzalez RN) Ganglion cyst of volar aspect of right wrist (Acute) Right upper limb pain (Acute) Numbness and tingling in right hand (Acute) Carpal tunnel syndrome of right wrist (Acute) Cubital tunnel syndrome on right (Acute) Numbness and tingling in left hand (Acute) Carpal tunnel syndrome of left wrist (Acute) Cubital tunnel syndrome on left (Acute) Past Medical History Medical History Alcohol abuse Anemia Back pain Bulging lumbar disc Chest pain Insomnia Numbness and tingling in left arm Vomiting of blood Surgical History Surgical History H/O arthroscopy of left knee History of carpal tunnel surgery of right wrist Social History Social History (Updated 02/11/21 @ 08:03 by Swetha Carmichael MD) Are you a primary career guidance technician to a significant other at home: No Do you presently have visiting nurse or other home services: No Alcohol intake: current Alcohol intake frequency: a few times a month Patient Tobacco Use Status: Current everyday Tobacco user Cigarette Packs Per Day: 1 Cigarettes Per Day: 20.0 Years Smoked: 34 Smoked in Last 30 Days: Yes Use of substances other than those prescribed or required for medical reasons: No Are you DNR?: No Advance Directives: No Advance Directives Information Provided: Yes 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al status: unemployed 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 Allergies Allergy/AdvReac Type Severity Reaction Status Date / Time No Known Allergies Allergy Verified 01/29/21 15:27 Home Medications Medication Instructions Recorded Confirmed Last Taken Type omeprazole 20 mg capsule,delayed 20 mg PO DAILY 01/02/21 01/02/21 Unknown History release ondansetron 4 mg disintegrating mg 01/02/21 Unknown History tablet Exam Exam Date and Time: February 10, 2021 0900 Pertinent Lab Results Pertinent Lab Results: Laboratory Tests 12/29/20 12/29/20 12:26 12:26 WBC 7.0 Hgb 12.4 L Hct 35.4 L Plt Count 238 Sodium 144 Potassium 4.1 Chloride 107 Carbon Dioxide 25 BUN 7 L Creatinine 0.85 Narrative Narrative: EKG 12/2020 Vent. Rate : 080 BPM ? ? Atrial Rate : 080 BPM ?? P-R Int : 162 ms? QRS Dur : 094 ms ? ? QT Int : 396 ms ? ? ? P-R-T Axes : 059 066 057 degrees ?? QTc Int : 456 ms ? Normal sinus rhythm Normal ECG When compared with ECG of 02-SEP-2019 18:38, No significant change was found Assessment and Plan Assessment Anesthesia Assessment: Chart Reviewed Documented by User: Swetha Carmichael MD 02/11/21 08:06 FOR[facility]LY [facility], [facility] Active Problems Active Problems: All Active Problems (Updated 01/02/21 @ 16:17 by Sharita Gonzalez RN) Ganglion cyst of volar aspect of right wrist (Acute) Right upper limb pain (Acute) Numbness and tingling in right hand (Acute) Carpal tunnel syndrome of right wrist (Acute) Cubital tunnel syndrome on right (Acute) Numbness and tingling in left hand (Acute) Carpal tunnel syndrome of left wrist (Acute) Cubital tunnel syndrome on left (Acute) ETOH abuse. States no alcohol for a month and a half Past Medical History Medical History Alcohol abuse Anemia Back pain Bulging lumbar disc Chest pain Insomnia Numbness and tingling in left arm Vomiting of blood Family History Family history of problems with anesthesia: No Surgical History Surgical History H/O arthroscopy of left knee History of carpal tunnel surgery of right wrist History of Problems with Anesthesia: No Social History Social History (Updated 02/11/21 @ 08:03 by Swetha Carmichael MD) Are you a primary career guidance technician to a significant other at home: No Do you presently have visiting nurse or other home services: No Alcohol intake: current Alcohol intake frequency: a few times a month Patient Tobacco Use Status: Current everyday Tobacco user Cigarette Packs Per Day: 1 Cigarettes Per Day: 20.0 Years Smoked: 34 Smoked in Last 30 Days: Yes Use of substances other than those prescribed or required for medical reasons: No Are you DNR?: No Advance Directives: No Advance Directives Information Provided: Yes 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al status: unemployed 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 Allergies Allergy/AdvReac Type Severity Reaction Status Date / Time No Known Allergies Allergy Verified 01/29/21 15:27 Home Medications Medication Instructions Recorded Confirmed Last Taken Type omeprazole 20 mg capsule,delayed 20 mg PO DAILY 01/02/21 01/02/21 Unknown History release ondansetron 4 mg disintegrating mg 01/02/21 Unknown History tablet Exam Height,Weight and Vital Signs: Height 5 ft 11 in Weight 70.307 kg Vital Signs Temp Pulse Resp BP Pulse Ox 02/11/21 06:10 98.1 F 86 16 152/89 H 100 Airway Mallampati Class: I TM Dist: >3cm Neck ROM: Full Denture: Upper Partial: Lower Loose/Missing/Broken Teeth: Yes (Only 2 teeth bottom. Not loose) Heart: RRR Lungs: CTAB. Diminished Assessment and Plan Assessment Anesthesia Assessment: Anesthesia Plan Discussed Final Anesthetic Review Family History of Problems with Anesthesia: No History of Problems with Anesthesia: No NPO: Yes ASA Class: III Final Preanesthetic Review: No Changes in Pt Med Stat, Meds/Allgs Chart Reviewed, Consent Obtained/Reviewed and Anes Risks/Benef Reviewed Patient Risk: Intermediate Procedure Risk: Low Assessment/Block/Sedation in SS: Assess/Block/Sedation-SS Anesthetic Plan Anesthetic Plan: GA Disposition: Standard PACU
[2021-02-11 06:10] VITALS: BP 152/89; PULSE 86; RESP 16; TEMP 36.7; O2SAT 100; BMI 21.6
[2021-02-11] MEDS: Lactated Ringers 1,000 ML 100 ML IVCONT (06:31)
[2021-02-11 09:00] VITALS: BP 156/79; PULSE 95; RESP 16; TEMP 36.1; O2SAT 98
[2021-02-11 09:05] VITALS: BP 137/75; PULSE 91; RESP 16; O2SAT 96
[2021-02-11 09:10] VITALS: BP 136/75; PULSE 84; RESP 16; O2SAT 96
[2021-02-11 09:15] VITALS: BP 133/76; PULSE 88; RESP 16; O2SAT 96
[2021-02-11 09:30] VITALS: BP 131/78; PULSE 78; RESP 16; O2SAT 96
--- NOTE | 2021-02-11 09:31 | MHC.SHP ---
Pre-Procedural Eval Section A Date of Service: 02/11/21 The patient is an INPATIENT: No Changes since office visit: No Cold of Flu in the past 2 weeks, No New Medical Problems, No Changes in Medication and No Patient answered all questions The History & Physical has been completed within 30 days and I have reviewed it.: Yes Section B Chief Complaint: Carpal Tunnel Syndrome Allergies: Allergies Allergy/AdvReac Type Severity Reaction Status Date / Time No Known Allergies Allergy Verified 01/29/21 15:27 Plan I have reviewed the history and physical and performed a pertinent physical examination on my patient. No changes have occurred unless specified.
--- NOTE | 2021-02-11 09:32 | W.PM.OPN ---
Operative Note Operative Note Date of Service: 02/11/21 Narrative: Operative Note Narrative: Preop diagnosis: 1. Left Cubital tunnel syndrome 2. Left carpal tunnel syndrome Postop diagnosis: Same Procedure: 1. Left Cubital Tunnel Release 2. Left carpal tunnel release Surgeon: Theresa Mathis MD Anesthesia: General Findings: Left Thickening and fibrosis about the ulnar nerve at the cubital tunnel Implants: none Tourniquet time: 28 minutes EBL: 5.0 ml Specimen: none Drains: None Complications: None Disposition: Brought to the recovery room in stable condition Plan: Follow-up in 10-14 days for wound check, and suture removal Indications: The patient is 51 years old man with left cubital tunnel syndrome and left carpal tunnel syndrome . The risks and benefits of operative treatment, including but not limited to risk of damage to blood vessels, nerves, tendons, infection, recurrence, persistent pain or numbness, incomplete resolution of preoperative symptoms, or need for further surgery were discussed with the patient and they wished to proceed with surgery. Procedure: Once consent was obtained patient was brought back to the operating suite and placed in the operating table in a supine position. Perioperative antibiotics and anesthesia was administered by the anesthesia team. The limb was prepped and draped in a standard surgical fashion, and a sterile tourniquet applied to the proximal aspect of the left upper extremity. The limb was elevated exsanguinated with Esmarch bandage and the tourniquet inflated to 250 mm of mercury for a total tourniquet time of 28 minutes. Once assured that we had a good block, a 1.5 cm longitudinal incision was made centered over the left carpal tunnel. The incision was made through the skin to the subcutaneous tissues using a #15 blade. Dissection was made down to the level of the transverse carpal ligament with care being taken to protect the palmar cutaneous nerve. Once the transverse carpal ligament was clearly visualized, a longitudinal incision was made in the transverse carpal ligament 1st using a #15 blade, then using tenotomy scissors under direct visualization. Care was taken to look for and protect the motor branch of the median nerve when seen in this area. Once satisfied with our carpal tunnel release the wound was irrigated with normal saline. A 6 cm gently curved but longitudinally oriented incision was made centered over the cubital tunnel of the leftupper extremity. Incision was made through the skin to the subcutaneous tissues using a # 15 Blade. I then dissected down to the level of the medial epicondyle and the cubital tunnel using tenotomy scissors. Care was taken to protect the lateral antebrachial cutaneous nerve. The ulnar nerve was identified just posterior to the medial intermuscular septum. Small vessel loop was passed behind the ulnar nerve and used to apply gentle traction to facilitate our release. The ulnar nerve was released in a proximal to distal direction using tenotomy in iris scissors while directly visualizing and protecting the ulnar nerve. Thickening and fibrosis was appreciated about the ulnar nerve as it passed through the cubital tunnel. The ulnar nerve was assessed as I passed the elbow through full flexion and extension and was found to remain stable within its groove. At this point the tourniquet was deflated and hemostasis obtained with a brief period of local pressure and bipolar electrocautery. The wound was copiously irrigated with normal saline. The subcutaneous layer was closed with 4-0 Vicryl suture, and the skin edges were reapproximated with 5-0 nylon suture. The wound was infiltrated with some 0.25% plain Marcaine for postop pain control and sterile dressings and a posterior splint was applied. The patient appears to have tolerated the procedure well and with no complications. All digits were well vascularized conclusion of the case.
== END 2021-02-11 10:22 | disposition home or self-care (01) ==
PROVIDERS: PCP Internal Medicine; Visit Provider Orthopaedic Surgery
PROC: (CPT 64721; principal; 2021-02-11 07:30)
DX: G56.02 Carpal tunnel syndrome, left upper limb (principal); G56.22 Lesion of ulnar nerve, left upper limb; F17.210 Nicotine dependence, cigarettes, uncomplicated
CPT/HCPCS: 64721; 64718; J0690; J1100; J1885; J2250; J2370; J2405; J3010

== ENCOUNTER → 2021-02-25 13:37 | Outpatient (BNVA) | payer MEDICAID, SELFPAY | PROVIDERS: Visit Provider Orthopaedic Surgery | DX: G56.03 Carpal tunnel syndrome, bilateral upper limbs (principal); G56.23 Lesion of ulnar nerve, bilateral upper limbs | CPT/HCPCS: 99212 ==

== ENCOUNTER → 2021-09-30 08:05 | Outpatient (BNVA) | payer MEDICAID, SELFPAY | PROVIDERS: Visit Provider Orthopaedic Surgery | DX: Z01.818 Encounter for other preprocedural examination (principal); M67.431 Ganglion, right wrist; M72.0 Palmar fascial fibromatosis [Dupuytren] | CPT/HCPCS: 99212 ==

== ENCOUNTER 2021-10-09 05:55 | Day surgery (SDC) | payer MEDICAID, SELFPAY ==
--- NOTE | 2021-10-08 08:39 | P.CONAN_ITS ---
Documented by User: Mary Huerta NP 10/08/21 08:42 HPI - Anesthesia Eval Consult details Narrative: 51yo M for Right Excision Volar Ganglion of wrist s/p carpal tunnel 01/2021 with GA-LMA 5 ETOH abuse PMFSH Active Problems Active Problems: All Active Problems (Updated 09/30/21 @ 09:19 by Theresa Mathis MD) Dupuytren's disease of palm of both hands (Acute) Ganglion cyst of volar aspect of right wrist (Acute) Right upper limb pain (Acute) Numbness and tingling in right hand (Acute) Carpal tunnel syndrome of right wrist (Acute) Cubital tunnel syndrome on right (Acute) Numbness and tingling in left hand (Acute) Carpal tunnel syndrome of left wrist (Acute) Cubital tunnel syndrome on left (Acute) Past Medical History Medical History Alcohol abuse Anemia Back pain Bulging lumbar disc Chest pain Insomnia Numbness and tingling in left arm Vomiting of blood Family History Family history of problems with anesthesia: No Surgical History Surgical History H/O arthroscopy of left knee History of carpal tunnel surgery of right wrist History of Problems with Anesthesia: No Social History Social History Are you a primary child care associate to a significant other at home: No Do you presently have visiting nurse or other home services: No Alcohol intake: current Alcohol intake frequency: 0-2 drinks per day Patient Tobacco Use Status: Current everyday Tobacco user Tobacco use type: Cigarette Cigarette Packs Per Day: 1 Cigarettes Per Day: 20 Years Smoked: 35 Smoked in Last 30 Days: Yes Use of substances other than those prescribed or required for medical reasons: No Are you DNR?: No Advance Directives: No Advance Directives Information Provided: Yes 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al status: unemployed 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 12/29/20 12/29/20 ? 12:26 12:26 WBC ?7.0 ? Hgb ?12.4 L ? Hct ?35.4 L ? Plt Count ?238 ? Sodium ? ?144 Potassium ? ?4.1 Chloride ? ?107 Carbon Dioxide ? ?25 BUN ? ?7 L Creatinine ? ?0.85 Narrative Narrative: EKG 12/2020 Vent. Rate : 080 BPM ? ? Atrial Rate : 080 BPM ?? P-R Int : 162 ms? QRS Dur : 094 ms ? ? QT Int : 396 ms ? ? ? P-R-T Axes : 059 066 057 degrees ?? QTc Int : 456 ms ? Normal sinus rhythm Normal ECG When compared with ECG of 02-SEP-2019 18:38, No significant change was found Assessment and Plan Assessment Anesthesia Assessment: Chart Reviewed Final Anesthetic Review Family History of Problems with Anesthesia: No History of Problems with Anesthesia: No Documented by User: Jadiel Schroeder MD 10/09/21 08:42 [facility] Past Medical History Medical History Alcohol abuse Anemia Back pain Bulging lumbar disc Chest pain Insomnia Numbness and tingling in left arm Vomiting of blood Surgical History Surgical History H/O arthroscopy of left knee History of carpal tunnel surgery of right wrist Social History Social History Are you a primary child care associate to a significant other at home: No Do you presently have visiting nurse or other home services: No Alcohol intake: current Alcohol intake frequency: 0-2 drinks per day Patient Tobacco Use Status: Current everyday Tobacco user Tobacco use type: Cigarette Cigarette Packs Per Day: 1 Cigarettes Per Day: 20 Years Smoked: 35 Smoked in Last 30 Days: Yes Use of substances other than those prescribed or required for medical reasons: No Are you DNR?: No Advance Directives: No Advance Directives Information Provided: Yes 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al status: unemployed 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 Allergies Allergy/AdvReac Type Severity Reaction Status Date / Time No Known Allergies Allergy Verified 09/30/21 08:27 Exam Airway Mallampati Class: III TM Dist: >3cm Denture: Upper Partial: Lower Loose/Missing/Broken Teeth: Yes Heart: S1, S2 Lungs: b/l breath sounds Assessment and Plan Assessment Anesthesia Assessment: Anesthesia Plan Discussed Final Anesthetic Review NPO: Yes ASA Class: III Final Preanesthetic Review: Meds/Allgs Chart Reviewed, Consent Obtained/Reviewed and Anes Risks/Benef Reviewed Patient Risk: High Procedure Risk: Intermediate Anesthetic Plan Anesthetic Plan: GA Disposition: Standard PACU
[2021-10-09 06:13] VITALS: BMI 21.6
[2021-10-09 06:25] VITALS: BP 159/85; PULSE 75; RESP 16; TEMP 37.1; O2SAT 100
[2021-10-09] MEDS: Lactated Ringers 1,000 ML 100 ML IVCONT (07:25)
--- NOTE | 2021-10-09 07:32 | MHC.SHP ---
Pre-Procedural Eval Section A Date of Service: 10/09/21 The patient is an INPATIENT: No Changes since office visit: No Cold of Flu in the past 2 weeks, No New Medical Problems, No Changes in Medication and No Patient answered all questions The History & Physical has been completed within 30 days and I have reviewed it.: Yes Section B Chief Complaint: ganglion Allergies: Allergies Allergy/AdvReac Type Severity Reaction Status Date / Time No Known Allergies Allergy Verified 09/30/21 08:27 Plan I have reviewed the history and physical and performed a pertinent physical examination on my patient. No changes have occurred unless specified.
--- NOTE | 2021-10-09 07:33 | W.PM.OPN ---
Operative Note Operative Note Date of Service: 10/09/21 Narrative: Operative Note Narrative: Preop diagnosis: 1.Right Volar wrist ganglion Postop diagnosis: Same Procedure: 1. right Volar wrist ganglion excision Surgeon: Theresa Mathis MD Anesthesia: General Findings: right volar wrist ganglion Implants: None Tourniquet time: 17 minutes EBL: 5.0 ml Specimen: Volar wrist ganglion Drains: None Complications: None Disposition: Brought to the recovery room in stable condition Plan: Follow-up in 10-14 days for wound check, suture removal and to check pathology Indications: The patient is 51 years old with a right volar wrist ganglion . The risks and benefits of operative treatment, including but not limited to risk of damage to blood vessels, nerves, tendons, infection, recurrence, persistent pain or numbness, incomplete resolution of preoperative symptoms, or need for further surgery were discussed with the patient and they wished to proceed with surgery. Procedure: Once consent was obtained patient was brought back to the operating suite and placed in the operating table in a supine position. . Perioperative antibiotics and anesthesia was administered by the anesthesia team. A tourniquet was applied to the proximal aspect of the right upper extremity and the limb was prepped and draped in a standard surgical fashion. The limb was elevated exsanguinated with Esmarch bandage and the tourniquet inflated to 250 mm of mercury for a total tourniquet time of 17 minutes. A 3 cm lazy S incision was made centered over the patient's right volar wrist ganglion. The incision was made through the skin the subcutaneous tissues using a 15. Blade. Careful dissection was then made down to the level of the volar wrist ganglion using tenotomy scissors. The ganglion was noted to be multi lobular and situated about the radial artery approximately 2.0 cm proximal to the distal wrist crease. Bipolar electrocautery was utilized to cauterize several of the small arterial branches from about the ganglion. The stalk to the ganglion was then isolated and cauterized using bipolar electrocautery. The ganglion was then removed and placed on the back table to be sent for histopathology. It contained clear red or blood tinged viscous fluid consistent with a ganglion. At this point the tourniquet was deflated and hemostasis obtained with a brief period of local pressure and bipolar electrocautery. The wound was copiously irrigated with normal saline. The subcutaneous layer was closed with 4-0 Vicryl suture, and the skin edges were reapproximated with 5-0 nylon suture. The wound was infiltrated with some 1% lidocaine with epinephrine for postop pain control and a sterile dressing was applied. The patient appears to have tolerated the procedure well and with no complications. All digits were well vascularized conclusion of the case.
[2021-10-09 08:46] VITALS: BP 119/77; PULSE 77; RESP 13; TEMP 37.1; O2SAT 100
[2021-10-09 08:51] VITALS: BP 125/79; PULSE 73; RESP 14; O2SAT 100
[2021-10-09 08:56] VITALS: BP 139/84; PULSE 71; RESP 14; O2SAT 100
[2021-10-09 09:01] VITALS: BP 139/84; PULSE 73; RESP 16; TEMP 37; O2SAT 100
[2021-10-09 09:16] VITALS: BP 142/93; PULSE 68; RESP 16; TEMP 36.9; O2SAT 99
--- NOTE | 2021-10-09 10:25 | PC.NURSE ---
PATIENT SHAKY IN DISCHARGE AREA. THIS RN HAD THE DR. SY REASSESS PATIENT PRIOR TO HIS LEAVING. PATIENT WAS GIVEN A WARM BLANKET AND A GINGERALE. PT DID NOT WANT ANYTHING TO EAT. PATIENT PLACED ON MONITOR BRIEFLY AND NSR WITH HR 71. TEMP 98.1, 150/94,99% ROOM AIR, RESP 16. BS 120. PATIENT WAS ASKED TO AMBULATE AND WAS STILL A LILTTLE SHAKY. PATIENT WAS ALSO ASSESSED BY DR. PEARL AND DR. FARMER. PT IS TAKING THE SHUTTLE HOME (DOOR TO DOOR). PT'S BROTHER CALLED AND ASKED TO MEET SHUTTLE WHEN PATIENT GOT HOME. NOTE: PT WITH HISTORY OF ETOH. PT ASKED TO CALL ROSEANN MCKINNEY WHEN HE GOT HOME PT RELEASED FROM [facility] AREA PER .
[2021-10-09 12:22] LABS: Glucose, Whole Blood 120 mg/dL (60-115)
== END 2021-10-09 10:06 | disposition home or self-care (01) ==
PROVIDERS: PCP Internal Medicine; Visit Provider Orthopaedic Surgery
PROC: (CPT 25111; principal; 2021-10-09 07:30)
DX: M67.431 Ganglion, right wrist (principal); R20.0 Anesthesia of skin; F10.10 Alcohol abuse, uncomplicated; F17.210 Nicotine dependence, cigarettes, uncomplicated; D64.9 Anemia, unspecified
CPT/HCPCS: 25111; 82947; 88304; J0690; J1200; J2250; J2370; J2405; J3010

== ENCOUNTER 2021-11-10 09:08 | Outpatient (REF) | payer MEDICAID, SELFPAY ==
--- NOTE | ~2021-11-10 | XR_ITS ---
EXAMINATION: BILATERAL KNEE X-RAY CLINICAL INFORMATION: Pain COMPARISON: Previous exam June 2019 TECHNIQUE: Standing AP, lateral and sunrise view of both knees FINDINGS: Bone alignment is normal. No fracture or dislocation is seen. Joint spaces are normal. There is no joint effusion. XR/XR knee RT 2V IMPRESSION: Unremarkable exam.
--- NOTE | ~2021-11-10 | XR_ITS ---
EXAMINATION: BILATERAL KNEE X-RAY CLINICAL INFORMATION: Pain COMPARISON: Previous exam June 2019 TECHNIQUE: Standing AP, lateral and sunrise view of both knees FINDINGS: Bone alignment is normal. No fracture or dislocation is seen. Joint spaces are normal. There is no joint effusion. XR/XR knee LT 2V IMPRESSION: Unremarkable exam.
--- NOTE | ~2021-11-10 | XR_ITS ---
EXAMINATION: BILATERAL KNEE X-RAY CLINICAL INFORMATION: Pain COMPARISON: Previous exam June 2019 TECHNIQUE: Standing AP, lateral and sunrise view of both knees FINDINGS: Bone alignment is normal. No fracture or dislocation is seen. Joint spaces are normal. There is no joint effusion. XR/XR knee standing BI IMPRESSION: Unremarkable exam.
== END 2021-11-10 09:09 | disposition home or self-care (01) ==
LOC: HO.HOSX 09:08
PROVIDERS: Visit Provider Orthopaedic Surgery
DX: M23.91 Unspecified internal derangement of right knee (principal); M25.562 Pain in left knee
CPT/HCPCS: 73560; 73565; 99212

== ENCOUNTER 2021-11-24 09:06 | Outpatient (REF) | payer MEDICAID, SELFPAY ==
--- NOTE | ~2021-11-24 | MR_ITS ---
EXAMINATION: MR KNEE WITHOUT CONTRAST, RIGHT CLINICAL INFORMATION: Right knee pain, swelling, numbness, lump/mass. Evaluate for internal derangement. COMPARISON: Most recent right knee radiographs dated 11/10/2021. TECHNIQUE: MRI of the knee without contrast was performed using routine sequences on a high-field scanner. FINDINGS: Evaluation is somewhat limited secondary to patient motion. MENISCI: MEDIAL MENISCUS: Intact. LATERAL MENISCUS: Intact. LIGAMENTS: CRUCIATE: Intact. COLLATERAL: Intact. EXTENSOR MECHANISM: Intact. ARTICULAR CARTILAGE/BONE: PATELLOFEMORAL COMPARTMENT: Lateral patellar facet articular cartilage signal heterogeneity and surface irregularity. Inferior medial trochlear articular cartilage signal heterogeneity and surface irregularity. Tiny marginal osteophytes. MEDIAL COMPARTMENT: Weight-bearing articular cartilage signal heterogeneity and surface irregularity with partial-thickness loss. Tiny marginal osteophytes. LATERAL COMPARTMENT: Intact articular cartilage. JOINT FLUID AND BURSAE: Trace joint effusion and trace Montemayor's cyst. There is lobulated fluid extending both superior and inferior adjacent to the Montemayor's cyst measuring up to 9.9 cm in craniocaudal dimension. Findings likely represent a ganglion cyst. MR/MR knee RT wo con IMPRESSION: 1. Mild patellofemoral and medial compartment osteoarthritis. Trace joint effusion and trace Montemayor's cyst. Large, lobulated cyst adjacent to the Montemayor's cyst measuring up to 9.9 cm in craniocaudal dimension and likely representing a ganglion cyst. 2. No acute meniscal or ligamentous injury.
== END 2021-11-24 09:07 | disposition home or self-care (01) ==
LOC: HO.MRI 09:06
PROVIDERS: Visit Provider Orthopaedic Surgery
DX: M23.91 Unspecified internal derangement of right knee (principal)
CPT/HCPCS: 73721

== ENCOUNTER → 2022-07-28 09:41 | Outpatient (BNVA) | payer MEDICAID, SELFPAY | PROVIDERS: PCP Internal Medicine; Visit Provider Orthopaedic Surgery | DX: M72.0 Palmar fascial fibromatosis [Dupuytren] (principal); M67.431 Ganglion, right wrist | CPT/HCPCS: 99212 ==

== ENCOUNTER 2022-08-08 10:49 | Emergency (ER) | payer MEDICAID, SELFPAY ==
--- NOTE | ~2022-08-08 | CT_ITS ---
EXAMINATION: CT HEAD WITHOUT CONTRAST CLINICAL INFORMATION: Dizziness, lower extremity weakness COMPARISON: CT 09/03/2017 TECHNIQUE: Contiguous axial imaging was performed from the skull base to vertex without intravenous administration of contrast. This CT examination was performed using dose optimization techniques as appropriate, variously including the following: *Automated exposure control *Adjustment of mA and/or kV according to patient size (this includes techniques or standardized protocols for targeted exams where dose is matched to indication/reason for exam; i.e. extremities or head) *Use of iterative reconstruction technique DLP: 632 mGy-cm FINDINGS: There is no evidence of acute intracranial hemorrhage or territorial infarction. No abnormal mass effect or midline shift is seen. Almonte to white matter differentiation is well preserved. No extra-axial fluid collections are identified. The ventricles are normal in size. Mild patchy deep white matter hypodensities probably reflecting chronic microangiopathic changes. Paranasal sinuses and mastoid air cells are well-aerated. CT/CT head/brain wo IV con IMPRESSION: No CT evidence of acute intracranial hemorrhage or edematous large vessel territorial infarction. Further evaluation with CTA or MRI as clinically warranted..
--- NOTE | ~2022-08-08 | XR_ITS ---
EXAMINATION: XR CHEST CLINICAL INFORMATION: Dizziness. COMPARISON: None available. TECHNIQUE: Frontal view of the chest was obtained. FINDINGS: The lungs are well-expanded and clear. The heart size and pulmonary vascularity is normal. No gross bony abnormality seen. XR/XR chest 1V IMPRESSION: Unremarkable chest exam.
--- NOTE | ~2022-08-08 | US_ITS ---
EXAMINATION: US VENOUS ULTRASOUND WITH DOPPLER LOWER EXTREMITY, BILATERAL CLINICAL INFORMATION: Bilateral leg weakness. COMPARISON: None available. TECHNIQUE: Ultrasound of the deep veins is performed from the hip to the calf with compression sonography and color and pulse Doppler assessment. Spectral analysis with color-flow imaging is performed. FINDINGS: RIGHT: There is normal venous compression and respiratory variation and augmented flow. The visualized common femoral vein, superficial femoral vein, profunda femoral vein, popliteal vein, and the trifurcation region shows no evidence of deep venous thrombosis. A right popliteal cyst measures 4.7 x 2.7 x 3.6 cm. Color Doppler showed no abnormal vascular flow. The subcutaneous soft tissues are unremarkable. LEFT: There is normal venous compression and respiratory variation and augmented flow. The visualized common femoral vein, superficial femoral vein, profunda femoral vein, popliteal vein, and the trifurcation region shows no evidence of deep venous thrombosis. No left popliteal cyst. The subcutaneous soft tissues are unremarkable. If the patient's symptoms persist, followup ultrasound in 5 days 7 days might be of value to exclude proximal propagation from a non-visualized calf vein. US/US venous duplex LE BI IMPRESSION: 1. No evidence for deep venous thrombosis in the visualized veins of the bilateral lower extremities. 2. Right popliteal cyst.
[2022-08-08 11:06] VITALS: BP 153/99; PULSE 102; RESP 18; TEMP 36.4; O2SAT 99; BMI 22.3
--- NOTE | 2022-08-08 11:10 | ECG_ITS ---
Test Reason : dizzy Blood Pressure : / mmHG Vent. Rate : 091 BPM Atrial Rate : 091 BPM P-R Int : 144 ms QRS Dur : 092 ms QT Int : 374 ms P-R-T Axes : 045 075 053 degrees QTc Int : 460 ms Normal sinus rhythm Normal ECG When compared with ECG of 29-DEC-2020 12:16, No significant change was found Referred By: Lexy Miles Electronically Signed By:JESSICA ROJO MD
--- NOTE | 2022-08-08 11:12 | ED.GENADULT ---
HPI - General Adult General Chief complaint: Dizziness <RONNY Alves - Last Filed: 08/08/22 11:27> Stated complaint: legs tingly, and dizziness <RONNY Alves - Last Filed: 08/08/22 11:27> Time Seen by Provider: 08/08/22 12:25 <RONNY Alves - Last Filed: 08/08/22 11:27> Source: patient <Alec Avina MD - Last Filed: 08/08/22 14:38> Mode of arrival: ambulatory <Alec Avina MD - Last Filed: 08/08/22 14:38> Limitations: no limitations <Alec Avina MD - Last Filed: 08/08/22 14:38> History of Present Illness HPI narrative: Patient presented to emergency department ambulatory complaining of legs pain bilateral weeks and dizziness. The patient has history of alcohol abuse. He is able to ambulate normally. <Alec Avina MD - Last Filed: 08/08/22 14:38> Onset (ago): week(s) (2) <Alec Avina MD - Last Filed: 08/08/22 14:38> Location: head and lower extremity <Alec Avina MD - Last Filed: 08/08/22 14:38> Radiation: non-radiation <Alec Avina MD - Last Filed: 08/08/22 14:38> Severity: moderate <Alec Avina MD - Last Filed: 08/08/22 14:38> Pain Consistency: intermittent <Alec Avina MD - Last Filed: 08/08/22 14:38> Exacerbating factors: none <Alec Avina MD - Last Filed: 08/08/22 14:38> Associated symptoms: denies other symptoms <Alec Avina MD - Last Filed: 08/08/22 14:38> Related Data Home medications: Previous Rx's Medication Instructions Recorded magnesium oxide 400 mg (241.3 mg 400 mg PO DAILY #10 tabs 08/08/22 magnesium) tablet <RONNY Alves - Last Filed: 08/08/22 11:27> Allergies/adverse reactions: Allergies Allergy/AdvReac Type Severity Reaction Status Date / Time No Known Allergies Allergy Verified 11/10/21 09:11 <RONNY Alves - Last Filed: 08/08/22 11:27> Review of Systems Constitutional: Constitutional: Reports no additional constitutional complaints <Alec Avina MD - Last Filed: 08/08/22 14:38> ENT: Reports system reviewed and no additional complaints, except as documented <Alec Avina MD - Last Filed: 08/08/22 14:38> Cardiovascular: Cardiovascular: Reports no additional cardiovascular complaints <Alec Avina MD - Last Filed: 08/08/22 14:38> Gastrointestinal: Gastrointestinal: Reports no additional gastrointestinal complaints <Alec Avina MD - Last Filed: 08/08/22 14:38> Musculoskeletal: Musculoskeletal: Reports no additional musculoskeletal complaints <Alec Avina MD - Last Filed: 08/08/22 14:38> PMFSH Past Medical History Medical History: Medical History Alcohol abuse Anemia Back pain Bulging lumbar disc Chest pain Insomnia Numbness and tingling in left arm Vomiting of blood <RONNY Alves - Last Filed: 08/08/22 11:27> Surgical History: Surgical History H/O arthroscopy of left knee History of carpal tunnel surgery of right wrist <RONNY Alves - Last Filed: 08/08/22 11:27> Social History Social History: Social History Are you a primary career services director to a significant other at home: No Do you presently have visiting nurse or other home services: No Alcohol intake: current Alcohol intake frequency: 0-2 drinks per day Alcohol type: beer Patient Tobacco Use Status: Current everyday Tobacco user Tobacco use type: Cigarette Cigarette Packs Per Day: 1 Cigarettes Per Day: 20 Years Smoked: 35 Smoked in Last 30 Days: Yes Use of substances other than those prescribed or required for medical reasons: No Advance Directives: No 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al status: unemployed 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 <RONNY Alves - Last Filed: 08/08/22 11:27> Physical Exam ED Vital Signs: Vital Signs - 24 hr 08/08/22 11:06 Temperature 97.6 F Pulse Rate 102 H Respiratory Rate 18 Blood Pressure 153/99 H Pulse Oximetry 99 Oxygen Delivery Method Room Air BMI result Body Mass Index 22.3 <RONNY Alves - Last Filed: 08/08/22 11:27> Vital Signs - 24 hr 08/08/22 11:06 Temperature 97.6 F Pulse Rate 102 H Respiratory Rate 18 Blood Pressure 153/99 H Pulse Oximetry 99 Oxygen Delivery Method Room Air BMI result Body Mass Index 22.3 <Alec Avina MD - Last Filed: 08/08/22 14:38> Const General: cooperative <Alec Avina MD - Last Filed: 08/08/22 14:38> Nutritional Appearance: average body habitus <Alec Avina MD - Last Filed: 08/08/22 14:38> Limitations: no limitations <Alec Avina MD - Last Filed: 08/08/22 14:38> HENNY Head: Yes normal to inspection <Alec Avina MD - Last Filed: 08/08/22 14:38> General nose exam: Normal external nose present <Alec Avina MD - Last Filed: 08/08/22 14:38> Face and sinus: Yes normal facial exam <Alec Avina MD - Last Filed: 08/08/22 14:38> Mouth: Normal oral and palatal mucosa present <Alec Avina MD - Last Filed: 08/08/22 14:38> Throat: Yes posterior oropharynx normal <Alec Avina MD - Last Filed: 08/08/22 14:38> Neck Neck: Yes normal visual inspection, Yes full ROM and Yes no lymphadenopathy <Alec Avina MD - Last Filed: 08/08/22 14:38> Lymphatic: no lymphadenopathy noted <Alec Avina MD - Last Filed: 08/08/22 14:38> Chest Chest palpation & inspection: normal inspection of the chest <Alec Avina MD - Last Filed: 08/08/22 14:38> Resp Effort & Inspection: normal respiratory effort <Alec Avina MD - Last Filed: 08/08/22 14:38> Auscultation: clear to auscultation bilaterally <Alec Avina MD - Last Filed: 08/08/22 14:38> Percussion: percussion normal <Alec Avina MD - Last Filed: 08/08/22 14:38> Cardio Jugular venous distension: no JVD <Alec Avina MD - Last Filed: 08/08/22 14:38> Rate: regular rate <Alec Avina MD - Last Filed: 08/08/22 14:38> Rhythm: regular rhythm <Alec Avina MD - Last Filed: 08/08/22 14:38> GI Inspection: Yes normal to inspection <Alec Avina MD - Last Filed: 08/08/22 14:38> Palpation (GI): Soft to palpation, not firm and nontender <Alec Avina MD - Last Filed: 08/08/22 14:38> Skin General skin exam: no rashes or lesions noted and elasticity normal <Alec Avina MD - Last Filed: 08/08/22 14:38> Lesions: no lesions <Alec Avina MD - Last Filed: 08/08/22 14:38> Rashes: no rashes <Alec Avina MD - Last Filed: 08/08/22 14:38> Extrem Other: Lower extremity examination showed excellent pulses bilaterally palpated by me. <Alec Avina MD - Last Filed: 08/08/22 14:38> Course Course Course Narrative: RME--52yo M with PMHx ETOH abuse, presenting to ED complaining of dizziness and bilateral lower extremity weakness and tingling x few weeks. Admits sx have been worsening. At baseline ambulates without assistance, in triage in wheelchair. Denies head trauma, INMAN, CP, SOB, or taking anticoagulation. Patient admits to being daily drinker & had few beers this morning. Denies travel, or known insect bites No focal deficits on exam EKG, labs, UA, tick-borne illness, head CT ordered <RONNY Alves - Last Filed: 08/08/22 11:27> Reevaluation(s) Reevaluation #1: Patient left AMA did not wait for result after he left magnesium return low will call a prescription for magnesium oxide to the pharmacy any way <Alec Avina MD - Last Filed: 08/08/22 14:38> Time: 14:11 <Alec Avina MD - Last Filed: 08/08/22 14:38> Medical Decision Making Medical Decision Making MDM Narrative: Patient presented with dizziness and the lower extremity pain he has excellent pulses on exam will do ultrasound of the legs and head CT <Alec Avina MD - Last Filed: 08/08/22 14:38> Differential Diagnosis Differential Diagnoses: The differential diagnosis associated with the presentation includes <Alec Avina MD - Last Filed: 08/08/22 14:38> Peripheral vascular disease/DVT/hypokalemia <Alec Avina MD - Last Filed: 08/08/22 14:38> Lab Data MDM Lab Attestation statement: I reviewed the patient's lab results. <Alec Avina MD - Last Filed: 08/08/22 14:38> Result Diagrams: 08/08/22 12:35 08/08/22 12:35 <RONNY Alves - Last Filed: 08/08/22 11:27> Labs: Lab Results 08/08/22 08/08/22 08/08/22 Range/Units 11:11 11:29 11:29 WBC (4.8-10.8) X10*3/uL RBC (4.60-5.80) X10*6/uL Hgb (14.0-18.0) g/dl Hct (42.0-52.0) % MCV (80.0-98.0) fL MCH (27.0-33.0) pg MCHC (31.0-36.0) g/dl RDW (11.0-16.0) % Plt Count (160-400) X10*3/uL MPV (9.4-12.4) fL Immature Gran % (Auto) (0.0-0.4) % Neut % (Auto) (45-73) % Lymph % (Auto) (20-40) % [place] % (Auto) (2-11) % Eos % (Auto) (0-4) % Baso % (Auto) (0-2) % Lymph # (Auto) (1.2-4.9) X10*3/uL [place] # (Auto) (0.1-1.2) X10*3/uL Eos # (Auto) (0.0-0.4) X10*3/uL Baso # (Auto) (0.0-0.2) X10*3/uL Abs Immat Gran (auto) (0.00-0.03) X10*3/uL Absolute Neuts (auto) (2.0-8.3) x10*3/uL Absolute Nucleated RBC (0.0-0.012) X10*3/uL Nucleated RBC % (auto) (0.0-0.2) /100WBC ESR (0-15) MM/HR PT (10.0-13.1) SEC INR (0.9-1.1) Sodium (135-145) mmol/L Potassium (3.3-5.1) mmol/L Chloride (96-108) mmol/L Carbon Dioxide (22-29) mmol/L Anion Gap (12-20) BUN (9-16) mg/dL Creatinine (0.5-1.4) mg/dL Estim Creat Clear Calc Estimated GFR Random Glucose (60-115) mg/dL Calcium (8.4-10.2) mg/dL Magnesium (1.6-2.6) mg/dL Total Bilirubin (0.0-1.0) mg/dL Direct Bilirubin (0.0-0.5) mg/dL AST (5-37) U/L ALT (0-40) U/L Alkaline Phosphatase (39-117) U/L Total Creatine Kinase (38-174) U/L Troponin I High Sens (<3.5-35.0) ng/L C-Reactive Protein (< or = 0.50) mg/dL Total Protein (6.5-8.0) g/dL Albumin (3.5-5.0) g/dL Urine Color Urine Appearance Urine pH (5.0-9.0) Ur Specific [place] (1.005-1.025) Urine Protein (Neg-Trace) mg/dL Urine Glucose (UA) (Negative) mg/dL Urine Ketones (Negative) mg/dL Urine Blood (Negative) Urine Nitrite (Negative) Ur Leukocyte Esterase (Negative) Urine Opiates Screen (Not Detect) Urine Fentanyl Screen (Not Detect) Ur Barbiturates Screen (Not Detect) Ur Phencyclidine Scrn (Not Detect) Ur Amphetamines Screen (Not Detect) U Benzodiazepines Scrn (Not Detect) Urine Cocaine Screen (Not Detect) U Marijuana (THC) Screen (Not Detect) Ethyl Alcohol mg/dL COVID-19 ([place]) Negative (Negative) COVID-19 Clin Com See Note Influenza Type A ([place]) Cancelled Influenza Type A (PCR) NEGATIVE (Negative) Influenza Type B ([place]) Cancelled Influenza Type B (PCR) NEGATIVE (Negative) Influenza A & B Note Cancelled RSV RNA Qual (PCR) NEGATIVE (Negative) SARS-CoV-2 RNA (RT-PCR) NEGATIVE (Negative) 08/08/22 08/08/22 08/08/22 Range/Units 12:35 12:35 12:35 WBC 5.3 (4.8-10.8) X10*3/uL RBC 3.86 L (4.60-5.80) X10*6/uL Hgb 13.5 L (14.0-18.0) g/dl Hct 38.4 L (42.0-52.0) % MCV 99.5 H (80.0-98.0) fL MCH 35.0 H (27.0-33.0) pg MCHC 35.2 (31.0-36.0) g/dl RDW 13.8 (11.0-16.0) % Plt Count 89 L (160-400) X10*3/uL MPV 10.1 (9.4-12.4) fL Immature Gran % (Auto) 0.4 (0.0-0.4) % Neut % (Auto) 45.3 (45-73) % Lymph % (Auto) 37.7 (20-40) % [place] % (Auto) 14.0 H (2-11) % Eos % (Auto) 1.1 (0-4) % Baso % (Auto) 1.5 (0-2) % Lymph # (Auto) 2.0 (1.2-4.9) X10*3/uL [place] # (Auto) 0.7 (0.1-1.2) X10*3/uL Eos # (Auto) 0.1 (0.0-0.4) X10*3/uL Baso # (Auto) 0.1 (0.0-0.2) X10*3/uL Abs Immat Gran (auto) 0.02 (0.00-0.03) X10*3/uL Absolute Neuts (auto) 2.4 (2.0-8.3) x10*3/uL Absolute Nucleated RBC 0.000 (0.0-0.012) X10*3/uL Nucleated RBC % (auto) 0.0 (0.0-0.2) /100WBC ESR 16 H (0-15) MM/HR PT 10.9 (10.0-13.1) SEC INR 1.0 (0.9-1.1) Sodium (135-145) mmol/L Potassium (3.3-5.1) mmol/L Chloride (96-108) mmol/L Carbon Dioxide (22-29) mmol/L Anion Gap (12-20) BUN (9-16) mg/dL Creatinine (0.5-1.4) mg/dL Estim Creat Clear Calc Estimated GFR Random Glucose (60-115) mg/dL Calcium (8.4-10.2) mg/dL Magnesium (1.6-2.6) mg/dL Total Bilirubin (0.0-1.0) mg/dL Direct Bilirubin (0.0-0.5) mg/dL AST (5-37) U/L ALT (0-40) U/L Alkaline Phosphatase (39-117) U/L Total Creatine Kinase (38-174) U/L Troponin I High Sens (<3.5-35.0) ng/L C-Reactive Protein (< or = 0.50) mg/dL Total Protein (6.5-8.0) g/dL Albumin (3.5-5.0) g/dL Urine Color Urine Appearance Urine pH (5.0-9.0) Ur Specific [place] (1.005-1.025) Urine Protein (Neg-Trace) mg/dL Urine Glucose (UA) (Negative) mg/dL Urine Ketones (Negative) mg/dL Urine Blood (Negative) Urine Nitrite (Negative) Ur Leukocyte Esterase (Negative) Urine Opiates Screen (Not Detect) Urine Fentanyl Screen (Not Detect) Ur Barbiturates Screen (Not Detect) Ur Phencyclidine Scrn (Not Detect) Ur Amphetamines Screen (Not Detect) U Benzodiazepines Scrn (Not Detect) Urine Cocaine Screen (Not Detect) U Marijuana (THC) Screen (Not Detect) Ethyl Alcohol mg/dL COVID-19 ([place]) (Negative) COVID-19 Clin Com Influenza Type A ([facility]) Influenza Type A (PCR) (Negative) Influenza Type B ([place]) Influenza Type B (PCR) (Negative) Influenza A & B Note RSV RNA Qual (PCR) (Negative) SARS-CoV-2 RNA (RT-PCR) (Negative) 08/08/22 08/08/22 08/08/22 Range/Units 12:35 12:35 12:35 WBC (4.8-10.8) X10*3/uL RBC (4.60-5.80) X10*6/uL Hgb (14.0-18.0) g/dl Hct (42.0-52.0) % MCV (80.0-98.0) fL MCH (27.0-33.0) pg MCHC (31.0-36.0) g/dl RDW (11.0-16.0) % Plt Count (160-400) X10*3/uL MPV (9.4-12.4) fL Immature Gran % (Auto) (0.0-0.4) % Neut % (Auto) (45-73) % Lymph % (Auto) (20-40) % [place] % (Auto) (2-11) % Eos % (Auto) (0-4) % Baso % (Auto) (0-2) % Lymph # (Auto) (1.2-4.9) X10*3/uL [place] # (Auto) (0.1-1.2) X10*3/uL Eos # (Auto) (0.0-0.4) X10*3/uL Baso # (Auto) (0.0-0.2) X10*3/uL Abs Immat Gran (auto) (0.00-0.03) X10*3/uL Absolute Neuts (auto) (2.0-8.3) x10*3/uL Absolute Nucleated RBC (0.0-0.012) X10*3/uL Nucleated RBC % (auto) (0.0-0.2) /100WBC ESR (0-15) MM/HR PT (10.0-13.1) SEC INR (0.9-1.1) Sodium 141 (135-145) mmol/L Potassium 3.4 (3.3-5.1) mmol/L Chloride 101 (96-108) mmol/L Carbon Dioxide 24 (22-29) mmol/L Anion Gap 19 (12-20) BUN 7 L (9-16) mg/dL Creatinine 0.70 (0.5-1.4) mg/dL Estim Creat Clear Calc 129.5 Estimated GFR > 60 Random Glucose 85 (60-115) mg/dL Calcium 9.3 (8.4-10.2) mg/dL Magnesium 1.1 L* (1.6-2.6) mg/dL Total Bilirubin 0.9 (0.0-1.0) mg/dL Direct Bilirubin 0.3 (0.0-0.5) mg/dL AST 139 H (5-37) U/L ALT 69 H (0-40) U/L Alkaline Phosphatase 68 (39-117) U/L Total Creatine Kinase 190 H (38-174) U/L Troponin I High Sens < 3.5 (<3.5-35.0) ng/L C-Reactive Protein 0.12 (< or = 0.50) mg/dL Total Protein 7.7 (6.5-8.0) g/dL Albumin 4.4 (3.5-5.0) g/dL Urine Color Yellow Urine Appearance Clear Urine pH 6.5 (5.0-9.0) Ur Specific [place] <= 1.005 (1.005-1.025) Urine Protein Trace (Neg-Trace) mg/dL Urine Glucose (UA) Negative (Negative) mg/dL Urine Ketones Negative (Negative) mg/dL Urine Blood Negative (Negative) Urine Nitrite Negative (Negative) Ur Leukocyte Esterase Negative (Negative) Urine Opiates Screen (Not Detect) Urine Fentanyl Screen (Not Detect) Ur Barbiturates Screen (Not Detect) Ur Phencyclidine Scrn (Not Detect) Ur Amphetamines Screen (Not Detect) U Benzodiazepines Scrn (Not Detect) Urine Cocaine Screen (Not Detect) U Marijuana (THC) Screen (Not Detect) Ethyl Alcohol 360 H* mg/dL COVID-19 ([place]) (Negative) COVID-19 Clin Com Influenza Type A ([facility]) Influenza Type A (PCR) (Negative) Influenza Type B ([place]) Influenza Type B (PCR) (Negative) Influenza A & B Note RSV RNA Qual (PCR) (Negative) SARS-CoV-2 RNA (RT-PCR) (Negative) 08/08/22 Range/Units 12:35 WBC (4.8-10.8) X10*3/uL RBC (4.60-5.80) X10*6/uL Hgb (14.0-18.0) g/dl Hct (42.0-52.0) % MCV (80.0-98.0) fL MCH (27.0-33.0) pg MCHC (31.0-36.0) g/dl RDW (11.0-16.0) % Plt Count (160-400) X10*3/uL MPV (9.4-12.4) fL Immature Gran % (Auto) (0.0-0.4) % Neut % (Auto) (45-73) % Lymph % (Auto) (20-40) % [place] % (Auto) (2-11) % Eos % (Auto) (0-4) % Baso % (Auto) (0-2) % Lymph # (Auto) (1.2-4.9) X10*3/uL [place] # (Auto) (0.1-1.2) X10*3/uL Eos # (Auto) (0.0-0.4) X10*3/uL Baso # (Auto) (0.0-0.2) X10*3/uL Abs Immat Gran (auto) (0.00-0.03) X10*3/uL Absolute Neuts (auto) (2.0-8.3) x10*3/uL Absolute Nucleated RBC (0.0-0.012) X10*3/uL Nucleated RBC % (auto) (0.0-0.2) /100WBC ESR (0-15) MM/HR PT (10.0-13.1) SEC INR (0.9-1.1) Sodium (135-145) mmol/L Potassium (3.3-5.1) mmol/L Chloride (96-108) mmol/L Carbon Dioxide (22-29) mmol/L Anion Gap (12-20) BUN (9-16) mg/dL Creatinine (0.5-1.4) mg/dL Estim Creat Clear Calc Estimated GFR Random Glucose (60-115) mg/dL Calcium (8.4-10.2) mg/dL Magnesium (1.6-2.6) mg/dL Total Bilirubin (0.0-1.0) mg/dL Direct Bilirubin (0.0-0.5) mg/dL AST (5-37) U/L ALT (0-40) U/L Alkaline Phosphatase (39-117) U/L Total Creatine Kinase (38-174) U/L Troponin I High Sens (<3.5-35.0) ng/L C-Reactive Protein (< or = 0.50) mg/dL Total Protein (6.5-8.0) g/dL Albumin (3.5-5.0) g/dL Urine Color Urine Appearance Urine pH (5.0-9.0) Ur Specific [place] (1.005-1.025) Urine Protein (Neg-Trace) mg/dL Urine Glucose (UA) (Negative) mg/dL Urine Ketones (Negative) mg/dL Urine Blood (Negative) Urine Nitrite (Negative) Ur Leukocyte Esterase (Negative) Urine Opiates Screen Not Detected (Not Detect) Urine Fentanyl Screen Not Detected (Not Detect) Ur Barbiturates Screen Not Detected (Not Detect) Ur Phencyclidine Scrn Not Detected (Not Detect) Ur Amphetamines Screen Not Detected (Not Detect) U Benzodiazepines Scrn Not Detected (Not Detect) Urine Cocaine Screen Not Detected (Not Detect) U Marijuana (THC) Screen Not Detected (Not Detect) Ethyl Alcohol mg/dL COVID-19 ([place]) (Negative) COVID-19 Clin Com Influenza Type A ([facility]) Influenza Type A (PCR) (Negative) Influenza Type B ([facility]) Influenza Type B (PCR) (Negative) Influenza A & B Note RSV RNA Qual (PCR) (Negative) SARS-CoV-2 RNA (RT-PCR) (Negative) <RONNY Alves - Last Filed: 08/08/22 11:27> Lab Results 08/08/22 08/08/22 08/08/22 Range/Units 11:11 11:29 11:29 WBC (4.8-10.8) X10*3/uL RBC (4.60-5.80) X10*6/uL Hgb (14.0-18.0) g/dl Hct (42.0-52.0) % MCV (80.0-98.0) fL MCH (27.0-33.0) pg MCHC (31.0-36.0) g/dl RDW (11.0-16.0) % Plt Count (160-400) X10*3/uL MPV (9.4-12.4) fL Immature Gran % (Auto) (0.0-0.4) % Neut % (Auto) (45-73) % Lymph % (Auto) (20-40) % [place] % (Auto) (2-11) % Eos % (Auto) (0-4) % Baso % (Auto) (0-2) % Lymph # (Auto) (1.2-4.9) X10*3/uL [place] # (Auto) (0.1-1.2) X10*3/uL Eos # (Auto) (0.0-0.4) X10*3/uL Baso # (Auto) (0.0-0.2) X10*3/uL Abs Immat Gran (auto) (0.00-0.03) X10*3/uL Absolute Neuts (auto) (2.0-8.3) x10*3/uL Absolute Nucleated RBC (0.0-0.012) X10*3/uL Nucleated RBC % (auto) (0.0-0.2) /100WBC ESR (0-15) MM/HR PT (10.0-13.1) SEC INR (0.9-1.1) Sodium (135-145) mmol/L Potassium (3.3-5.1) mmol/L Chloride (96-108) mmol/L Carbon Dioxide (22-29) mmol/L Anion Gap (12-20) BUN (9-16) mg/dL Creatinine (0.5-1.4) mg/dL Estim Creat Clear Calc Estimated GFR Random Glucose (60-115) mg/dL Calcium (8.4-10.2) mg/dL Magnesium (1.6-2.6) mg/dL Total Bilirubin (0.0-1.0) mg/dL Direct Bilirubin (0.0-0.5) mg/dL AST (5-37) U/L ALT (0-40) U/L Alkaline Phosphatase (39-117) U/L Total Creatine Kinase (38-174) U/L Troponin I High Sens (<3.5-35.0) ng/L C-Reactive Protein (< or = 0.50) mg/dL Total Protein (6.5-8.0) g/dL Albumin (3.5-5.0) g/dL Urine Color Urine Appearance Urine pH (5.0-9.0) Ur Specific [place] (1.005-1.025) Urine Protein (Neg-Trace) mg/dL Urine Glucose (UA) (Negative) mg/dL Urine Ketones (Negative) mg/dL Urine Blood (Negative) Urine Nitrite (Negative) Ur Leukocyte Esterase (Negative) Urine Opiates Screen (Not Detect) Urine Fentanyl Screen (Not Detect) Ur Barbiturates Screen (Not Detect) Ur Phencyclidine Scrn (Not Detect) Ur Amphetamines Screen (Not Detect) U Benzodiazepines Scrn (Not Detect) Urine Cocaine Screen (Not Detect) U Marijuana (THC) Screen (Not Detect) Ethyl Alcohol mg/dL COVID-19 ([place]) Negative (Negative) COVID-19 Clin Com See Note Influenza Type A ([place]) Cancelled Influenza Type A (PCR) NEGATIVE (Negative) Influenza Type B ([place]) Cancelled Influenza Type B (PCR) NEGATIVE (Negative) Influenza A & B Note Cancelled RSV RNA Qual (PCR) NEGATIVE (Negative) SARS-CoV-2 RNA (RT-PCR) NEGATIVE (Negative) 08/08/22 08/08/22 08/08/22 Range/Units 12:35 12:35 12:35 WBC 5.3 (4.8-10.8) X10*3/uL RBC 3.86 L (4.60-5.80) X10*6/uL Hgb 13.5 L (14.0-18.0) g/dl Hct 38.4 L (42.0-52.0) % MCV 99.5 H (80.0-98.0) fL MCH 35.0 H (27.0-33.0) pg MCHC 35.2 (31.0-36.0) g/dl RDW 13.8 (11.0-16.0) % Plt Count 89 L (160-400) X10*3/uL MPV 10.1 (9.4-12.4) fL Immature Gran % (Auto) 0.4 (0.0-0.4) % Neut % (Auto) 45.3 (45-73) % Lymph % (Auto) 37.7 (20-40) % [place] % (Auto) 14.0 H (2-11) % Eos % (Auto) 1.1 (0-4) % Baso % (Auto) 1.5 (0-2) % Lymph # (Auto) 2.0 (1.2-4.9) X10*3/uL [place] # (Auto) 0.7 (0.1-1.2) X10*3/uL Eos # (Auto) 0.1 (0.0-0.4) X10*3/uL Baso # (Auto) 0.1 (0.0-0.2) X10*3/uL Abs Immat Gran (auto) 0.02 (0.00-0.03) X10*3/uL Absolute Neuts (auto) 2.4 (2.0-8.3) x10*3/uL Absolute Nucleated RBC 0.000 (0.0-0.012) X10*3/uL Nucleated RBC % (auto) 0.0 (0.0-0.2) /100WBC ESR 16 H (0-15) MM/HR PT 10.9 (10.0-13.1) SEC INR 1.0 (0.9-1.1) Sodium (135-145) mmol/L Potassium (3.3-5.1) mmol/L Chloride (96-108) mmol/L Carbon Dioxide (22-29) mmol/L Anion Gap (12-20) BUN (9-16) mg/dL Creatinine (0.5-1.4) mg/dL Estim Creat Clear Calc Estimated GFR Random Glucose (60-115) mg/dL Calcium (8.4-10.2) mg/dL Magnesium (1.6-2.6) mg/dL Total Bilirubin (0.0-1.0) mg/dL Direct Bilirubin (0.0-0.5) mg/dL AST (5-37) U/L ALT (0-40) U/L Alkaline Phosphatase (39-117) U/L Total Creatine Kinase (38-174) U/L Troponin I High Sens (<3.5-35.0) ng/L C-Reactive Protein (< or = 0.50) mg/dL Total Protein (6.5-8.0) g/dL Albumin (3.5-5.0) g/dL Urine Color Urine Appearance Urine pH (5.0-9.0) Ur Specific [place] (1.005-1.025) Urine Protein (Neg-Trace) mg/dL Urine Glucose (UA) (Negative) mg/dL Urine Ketones (Negative) mg/dL Urine Blood (Negative) Urine Nitrite (Negative) Ur Leukocyte Esterase (Negative) Urine Opiates Screen (Not Detect) Urine Fentanyl Screen (Not Detect) Ur Barbiturates Screen (Not Detect) Ur Phencyclidine Scrn (Not Detect) Ur Amphetamines Screen (Not Detect) U Benzodiazepines Scrn (Not Detect) Urine Cocaine Screen (Not Detect) U Marijuana (THC) Screen (Not Detect) Ethyl Alcohol mg/dL COVID-19 ([place]) (Negative) COVID-19 Clin Com Influenza Type A ([facility]) Influenza Type A (PCR) (Negative) Influenza Type B ([facility]) Influenza Type B (PCR) (Negative) Influenza A & B Note RSV RNA Qual (PCR) (Negative) SARS-CoV-2 RNA (RT-PCR) (Negative) 08/08/22 08/08/22 08/08/22 Range/Units 12:35 12:35 12:35 WBC (4.8-10.8) X10*3/uL RBC (4.60-5.80) X10*6/uL Hgb (14.0-18.0) g/dl Hct (42.0-52.0) % MCV (80.0-98.0) fL MCH (27.0-33.0) pg MCHC (31.0-36.0) g/dl RDW (11.0-16.0) % Plt Count (160-400) X10*3/uL MPV (9.4-12.4) fL Immature Gran % (Auto) (0.0-0.4) % Neut % (Auto) (45-73) % Lymph % (Auto) (20-40) % [place] % (Auto) (2-11) % Eos % (Auto) (0-4) % Baso % (Auto) (0-2) % Lymph # (Auto) (1.2-4.9) X10*3/uL [place] # (Auto) (0.1-1.2) X10*3/uL Eos # (Auto) (0.0-0.4) X10*3/uL Baso # (Auto) (0.0-0.2) X10*3/uL Abs Immat Gran (auto) (0.00-0.03) X10*3/uL Absolute Neuts (auto) (2.0-8.3) x10*3/uL Absolute Nucleated RBC (0.0-0.012) X10*3/uL Nucleated RBC % (auto) (0.0-0.2) /100WBC ESR (0-15) MM/HR PT (10.0-13.1) SEC INR (0.9-1.1) Sodium 141 (135-145) mmol/L Potassium 3.4 (3.3-5.1) mmol/L Chloride 101 (96-108) mmol/L Carbon Dioxide 24 (22-29) mmol/L Anion Gap 19 (12-20) BUN 7 L (9-16) mg/dL Creatinine 0.70 (0.5-1.4) mg/dL Estim Creat Clear Calc 129.5 Estimated GFR > 60 Random Glucose 85 (60-115) mg/dL Calcium 9.3 (8.4-10.2) mg/dL Magnesium 1.1 L* (1.6-2.6) mg/dL Total Bilirubin 0.9 (0.0-1.0) mg/dL Direct Bilirubin 0.3 (0.0-0.5) mg/dL AST 139 H (5-37) U/L ALT 69 H (0-40) U/L Alkaline Phosphatase 68 (39-117) U/L Total Creatine Kinase 190 H (38-174) U/L Troponin I High Sens < 3.5 (<3.5-35.0) ng/L C-Reactive Protein 0.12 (< or = 0.50) mg/dL Total Protein 7.7 (6.5-8.0) g/dL Albumin 4.4 (3.5-5.0) g/dL Urine Color Yellow Urine Appearance Clear Urine pH 6.5 (5.0-9.0) Ur Specific [place] <= 1.005 (1.005-1.025) Urine Protein Trace (Neg-Trace) mg/dL Urine Glucose (UA) Negative (Negative) mg/dL Urine Ketones Negative (Negative) mg/dL Urine Blood Negative (Negative) Urine Nitrite Negative (Negative) Ur Leukocyte Esterase Negative (Negative) Urine Opiates Screen (Not Detect) Urine Fentanyl Screen (Not Detect) Ur Barbiturates Screen (Not Detect) Ur Phencyclidine Scrn (Not Detect) Ur Amphetamines Screen (Not Detect) U Benzodiazepines Scrn (Not Detect) Urine Cocaine Screen (Not Detect) U Marijuana (THC) Screen (Not Detect) Ethyl Alcohol 360 H* mg/dL COVID-19 ([place]) (Negative) COVID-19 Clin Com Influenza Type A ([facility]) Influenza Type A (PCR) (Negative) Influenza Type B ([facility]) Influenza Type B (PCR) (Negative) Influenza A & B Note RSV RNA Qual (PCR) (Negative) SARS-CoV-2 RNA (RT-PCR) (Negative) 08/08/22 Range/Units 12:35 WBC (4.8-10.8) X10*3/uL RBC (4.60-5.80) X10*6/uL Hgb (14.0-18.0) g/dl Hct (42.0-52.0) % MCV (80.0-98.0) fL MCH (27.0-33.0) pg MCHC (31.0-36.0) g/dl RDW (11.0-16.0) % Plt Count (160-400) X10*3/uL MPV (9.4-12.4) fL Immature Gran % (Auto) (0.0-0.4) % Neut % (Auto) (45-73) % Lymph % (Auto) (20-40) % [place] % (Auto) (2-11) % Eos % (Auto) (0-4) % Baso % (Auto) (0-2) % Lymph # (Auto) (1.2-4.9) X10*3/uL [place] # (Auto) (0.1-1.2) X10*3/uL Eos # (Auto) (0.0-0.4) X10*3/uL Baso # (Auto) (0.0-0.2) X10*3/uL Abs Immat Gran (auto) (0.00-0.03) X10*3/uL Absolute Neuts (auto) (2.0-8.3) x10*3/uL Absolute Nucleated RBC (0.0-0.012) X10*3/uL Nucleated RBC % (auto) (0.0-0.2) /100WBC ESR (0-15) MM/HR PT (10.0-13.1) SEC INR (0.9-1.1) Sodium (135-145) mmol/L Potassium (3.3-5.1) mmol/L Chloride (96-108) mmol/L Carbon Dioxide (22-29) mmol/L Anion Gap (12-20) BUN (9-16) mg/dL Creatinine (0.5-1.4) mg/dL Estim Creat Clear Calc Estimated GFR Random Glucose (60-115) mg/dL Calcium (8.4-10.2) mg/dL Magnesium (1.6-2.6) mg/dL Total Bilirubin (0.0-1.0) mg/dL Direct Bilirubin (0.0-0.5) mg/dL AST (5-37) U/L ALT (0-40) U/L Alkaline Phosphatase (39-117) U/L Total Creatine Kinase (38-174) U/L Troponin I High Sens (<3.5-35.0) ng/L C-Reactive Protein (< or = 0.50) mg/dL Total Protein (6.5-8.0) g/dL Albumin (3.5-5.0) g/dL Urine Color Urine Appearance Urine pH (5.0-9.0) Ur Specific Burnham (1.005-1.025) Urine Protein (Neg-Trace) mg/dL Urine Glucose (UA) (Negative) mg/dL Urine Ketones (Negative) mg/dL Urine Blood (Negative) Urine Nitrite (Negative) Ur Leukocyte Esterase (Negative) Urine Opiates Screen Not Detected (Not Detect) Urine Fentanyl Screen Not Detected (Not Detect) Ur Barbiturates Screen Not Detected (Not Detect) Ur Phencyclidine Scrn Not Detected (Not Detect) Ur Amphetamines Screen Not Detected (Not Detect) U Benzodiazepines Scrn Not Detected (Not Detect) Urine Cocaine Screen Not Detected (Not Detect) U Marijuana (THC) Screen Not Detected (Not Detect) Ethyl Alcohol mg/dL COVID-19 ([place]) (Negative) COVID-19 Clin Com Influenza Type A (SANDRA) Influenza Type A (PCR) (Negative) Influenza Type B (SANDRA) Influenza Type B (PCR) (Negative) Influenza A & B Note RSV RNA Qual (PCR) (Negative) SARS-CoV-2 RNA (RT-PCR) (Negative) <Alec Avina MD - Last Filed: 08/08/22 14:38> Radiology Impression Discussion of test interpretation with radiology: I have reviewed the radiologist's reading. <Alec Avina MD - Last Filed: 08/08/22 14:38> Radiologist Impression: LEFT: There is normal venous compression and respiratory variation and augmented flow. The visualized common femoral vein, superficial femoral vein, profunda femoral vein, popliteal vein, and the trifurcation region shows no evidence of deep venous thrombosis. No left popliteal cyst. The subcutaneous soft tissues are unremarkable. If the patient's symptoms persist, followup ultrasound in 5 days 7 days might be of value to exclude proximal propagation from a non-visualized calf vein. US/US venous duplex LE BI IMPRESSION: 1.? No evidence for deep venous thrombosis in the visualized veins of the bilateral lower extremities. 2.? Right popliteal cyst. ? Dictated By: Blaine Simental MD Signed By: <Electronically signed by Blaine Simental MD in OV> 08/08/22 1426 <Alec Avina MD - Last Filed: 08/08/22 14:38> Discharge Plan Discharge Clinical Impression: Bilateral leg pain, Hypomagnesemia, Alcohol intoxication <RONNY Alves - Last Filed: 08/08/22 11:27> Patient Disposition: Left Against Medical Advice <RONNY Alves - Last Filed: 08/08/22 11:27> Prescriptions: New magnesium oxide 400 mg (241.3 mg magnesium) tablet 400 mg PO DAILY Qty: 10 0RF <RONNY Alves - Last Filed: 08/08/22 11:27>
[2022-08-08 11:56] LABS: COVID-19 Test Negative (Negative); IDNOW Serial# 9DB6401D
[2022-08-08 12:36] LABS: Influenza A PCR NEGATIVE (Negative); Influenza B PCR NEGATIVE (Negative); Resp Syncy Virus RNA Qual PCR NEGATIVE (Negative); SARS COV2 PCR INHOUSE NEGATIVE (Negative)
[2022-08-08 12:44] LABS: MANUAL DIFF FLAG NO
[2022-08-08 12:46] LABS: Basophils Absolute Auto 0.1 X10*3/uL (0.0-0.2); Basophils Percent Auto 1.5 % (0-2); Eosinophils Absolute Auto 0.1 X10*3/uL (0.0-0.4); Eosinophils Percent Auto 1.1 % (0-4); Hematocrit 38.4 % (42.0-52.0); Hemoglobin 13.5 g/dl (14.0-18.0); Imm Gran Abs Auto 0.02 X10*3/uL (0.00-0.03); Imm Gran Pct Auto 0.4 % (0.0-0.4); Lymphocytes Percent Auto 37.7 % (20-40); Mean Corpuscular HGB Conc 35.2 g/dl (31.0-36.0); Mean Corpuscular Volume 99.5 fL (80.0-98.0); Monocytes Absolute Auto 0.7 X10*3/uL (0.1-1.2); Neutrophils Absolute Auto 2.4 x10*3/uL (2.0-8.3); Neutrophils Percent Auto 45.3 % (45-73); Red Blood Count 3.86 X10*6/uL (4.60-5.80); Red Cell Distribution Width 13.8 % (11.0-16.0); White Blood Count 5.3 X10*3/uL (4.8-10.8)
[2022-08-08 12:47] LABS: Appearance Urine Clear; Color Urine Yellow; Glucose Urine UA Negative (Negative); Leukocyte Esterase Urine Negative (Negative); Nitrite Urine Negative (Negative); PH 6.5 (5.0-9.0); Specific Gravity - Urine <= 1.005 (1.005-1.025); Urine Blood Negative (Negative); Urine Ketones Negative (Negative); Urine Protein Trace mg/dL (Neg-Trace)
[2022-08-08 12:51] LABS: Prothrombin Time 10.9 SEC (10.0-13.1)
[2022-08-08 13:04] LABS: Amphetamine Screen Urine Not Detected (Not Detect); Barbiturates, Urine Not Detected (Not Detect); Benzodiazepines Screen Urine Not Detected (Not Detect); Cannabinoid Screen Urine Not Detected (Not Detect); Cocaine Screen Urine Not Detected (Not Detect); Fentanyl, urine Not Detected (Not Detect); Opiate Screen Urine Not Detected (Not Detect); Phencyclidine Screen Urine Not Detected (Not Detect)
[2022-08-08 13:07] LABS: Mean Platelet Volume 10.1 fL (9.4-12.4); Platelet Count 89 X10*3/uL (160-400)
[2022-08-08 13:19] LABS: Troponin-I High Sensitivity < 3.5 ng/L (<3.5-35.0)
[2022-08-08 13:24] LABS: Erythrocyte Sedimentation Rate 16 MM/HR (0-15)
[2022-08-08 14:08] LABS: Alanine Aminotransferase 69 U/L (0-40); Albumin Level 4.4 g/dL (3.5-5.0); Alkaline Phosphatase 68 U/L (39-117); Anion Gap 19 (12-20); Aspartate Amino Transferase 139 U/L (5-37); Bilirubin Direct 0.3 mg/dL (0.0-0.5); Bilirubin Total 0.9 mg/dL (0.0-1.0); Blood Urea Nitrogen 7 mg/dL (9-16); C Reactive Protein 0.12 mg/dL (< or = 0.50); Calcium 9.3 mg/dL (8.4-10.2); Carbon Dioxide 24 mmol/L (22-29); Chloride 101 mmol/L (96-108); Creatinine Clr Calc Pharmacy 129.5; Estimated Glomerular Filt Rate > 60; Ethanol 360 mg/dL; Glucose Random 85 mg/dL (60-115); Magnesium 1.1 mg/dL (1.6-2.6); Potassium 3.4 mmol/L (3.3-5.1); Sodium 141 mmol/L (135-145); Total Protein 7.7 g/dL (6.5-8.0)
[2022-08-10 23:13] LABS: Lyme Abs Screen <0.90 index
[2022-08-11 03:34] LABS: A. Phagocytphilium DNA,RT-PCR NOT DETECTED (NOT DETECTED); Babesia Microti DNA, RT-PCR NOT DETECTED (NOT DETECTED); Borrelia Miyamotoi,DNA RT-PCR NOT DETECTED (NOT DETECTED); E.Chaffeensis DNA RT-PCR NOT DETECTED (NOT DETECTED); Lyme(Borrelia ssp)DNA RT-PCR NOT DETECTED (NOT DETECTED)
== END 2022-08-08 14:00 | disposition left against medical advice (07) ==
PROVIDERS: Physician Assistant; Emergency Provider Emergency Medicine
DX: M79.605 Pain in left leg (principal); M79.604 Pain in right leg; E83.42 Hypomagnesemia; F10.120 Alcohol abuse with intoxication, uncomplicated; Y90.8 Blood alcohol level of 240 mg/100 ml or more; Z20.822 Contact with and (suspected) exposure to COVID-19; Z20.828 Contact with and (suspected) exposure to other viral communicable diseases; R42 Dizziness and giddiness; F17.210 Nicotine dependence, cigarettes, uncomplicated
CPT/HCPCS: 0241U; 70450; 71045; 80048; 80076; 80307; 81003; 82077; 82550; 83735; 84484; 85025; 85610; 85652; 86140; 86617; 86618; 87635; 87798; 87801; 93005; 93970; 99284

== ENCOUNTER 2022-08-27 14:34 | Emergency (ER) | payer MEDICAID, SELFPAY ==
[2022-08-27 14:37] VITALS: BP 140/80; BP 145/91; PULSE 110; PULSE 136; RESP 16; TEMP 36.7; O2SAT 97; O2SAT 98; BMI 20.7
--- NOTE | 2022-08-27 15:03 | PC.NURSE ---
pt reports he would like to leave, pt cooperative and understanding about staying at least until a doctor can lay eyes on him
--- NOTE | 2022-08-27 15:06 | ED_ITS ---
HPI - General Adult General Chief complaint: Dizziness Stated complaint: HEAD/LEG PAIN X2 WEEKS,ETOH USE PER EMS Time Seen by Provider: 08/27/22 15:06 Source: patient Mode of arrival: ambulatory Limitations: no limitations History of Present Illness HPI narrative: Patient is a 52 year old assigned male at with a history of alcohol use presenting to the emergency department today with chronic dizziness and chronic knee pain. Patient states that he had 3 beers today and that exacerbated his dizziness and knee pain. Patient states that both the dizziness and the knee pain have now resolved and he would like to leave with his sober ride. Patient denies any lightheadedness, abdominal pain, nausea, vomiting, fever, chills, blurry vision, double vision, loss of vision, chest pain, difficulty breathing, shortness of breath, back pain, night sweats, pain with urination, increased urinary frequency, increased urinary urgency, blood in his urine or stool, syncope or a near syncopal episode, recent trauma or falls, bowel incontinence, bladder incontinence, bowel retention, bladder retention, or any other complaints at this time. Onset (ago): week(s) (3) Relieving factors: none Exacerbating factors: none Associated symptoms: denies other symptoms Treatments prior to arrival: none Related Data Previous Rx's Medication Instructions Recorded magnesium oxide 400 mg (241.3 mg 400 mg PO DAILY #10 tabs 08/08/22 magnesium) tablet Allergies Allergy/AdvReac Type Severity Reaction Status Date / Time No Known Allergies Allergy Verified 11/10/21 09:11 Review of Systems Constitutional: Constitutional: Reports no additional constitutional complaints, Denies chills, Denies fever(s) and Denies night sweats Eyes: Eyes: Reports no additional eye complaints, Denies blurry vision, Denies change in vision, Denies diplopia, Denies eye discharge, Denies loss of vision and Denies eye pain ENT: Denies dizziness Cardiovascular: Cardiovascular: Reports no additional cardiovascular complaints, Denies chest pain, Denies lightheadedness, Denies Loss of Consciousness and Denies dyspnea Respiratory: Respiratory: Reports no additional respiratory complaints and Denies dyspnea Gastrointestinal: Gastrointestinal: Reports no additional gastrointestinal complaints, Denies abdominal pain, Denies melena, Denies hematochezia, Denies change in bowel habits and Denies change in stool character Genitourinary: Genitourinary: Reports no additional male genitourinary complaints, Denies hematuria, Denies oliguria, Denies difficulty urinating, Denies dysuria, Denies urinary frequency, Denies urinary hesitancy, Denies urinary incontinence and Denies urinary urgency Musculoskeletal: Musculoskeletal: Reports no additional musculoskeletal complaints, Denies numbness and Denies tingling Neurologic: Denies dizziness, Denies loss of vision, Denies numbness and Denies tingling Psychiatric: Psychiatric: Reports no additional psychiatric complaints Endocrine: Endocrine: Reports no additional endocrine complaints Hematologic/Lymphatic: Hematologic/Lymphatic: Reports no additional hematologic/lymphatic complaints Allergic/Immunologic: Allergic/Immunologic: Reports no additional allergic/immunologic complaints PMFSH Past Medical History Attestation statement: The following information was validated with the patient. Source: old records reviewed and nursing notes reviewed Medical History Alcohol abuse Anemia Back pain Bulging lumbar disc Chest pain Insomnia Numbness and tingling in left arm Vomiting of blood Surgical History H/O arthroscopy of left knee History of carpal tunnel surgery of right wrist Social History Social History Are you a primary director of career services to a significant other at home: No Do you presently have visiting nurse or other home services: No Alcohol intake: current Alcohol intake frequency: a few times a week Alcohol type: beer Patient Tobacco Use Status: Current everyday Tobacco user Tobacco use type: Cigarette Cigarette Packs Per Day: 1 Cigarettes Per Day: 20 Years Smoked: 35 Smoked in Last 30 Days: Yes Use of substances other than those prescribed or required for medical reasons: No Advance Directives: No Advance Directives Information Provided: No 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al status: unemployed 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 Physical Exam ED Vital Signs: Vital Signs - 24 hr 08/27/22 14:37 08/27/22 15:07 Temperature 98.1 F Pulse Rate 110 H 114 H Respiratory Rate 16 16 Blood Pressure 145/91 H 143/100 H Pulse Oximetry 98 98 Oxygen Delivery Method Room Air Room Air BMI result Body Mass Index 20.7 Const General: cooperative, no acute distress, alert and awake Nutritional Appearance: well nourished Orientation/consciousness: patient oriented x3 Limitations: no limitations HENMT Head: Yes normal to inspection and Yes atraumatic Ears: hearing grossly normal bilaterally and external ears normal General nose exam: Normal external nose present, no nasal discharge noted and no epistaxis Face and sinus: Yes normal facial exam, No abrasion and No laceration Mouth: Normal oral and palatal mucosa present, no drooling and no muffled voice Eyes General: appearance normal, both eyes and all related structures Periorbital: periorbital findings normal Eyelids: Yes eyelids normal Conjunctivae: conjunctivae normal Pupils: Equal, round and reactive pupils present EOM: EOMs intact bilaterally Neck Neck: Yes normal visual inspection, Yes full ROM and Yes no lymphadenopathy Chest Chest palpation & inspection: normal inspection of the chest Resp Effort & Inspection: normal respiratory effort and able to speak in complete sentences Auscultation: clear to auscultation bilaterally Cardio Rate: regular rate Rhythm: regular rhythm GI Inspection: Yes normal to inspection Neuro General: patient oriented x3 and moves all extremities Cranial nerves: Yes Equal, round and reactive pupils present Cognition (Neuro): normal cognition Motor exam (neuro): 5/5 motor strength present throughout Sensory Exam: Normal double simultaneous stimulation for sensation Coordination: [id number] test normal Extrem General: Yes normal to inspection, Yes full ROM and Yes capillary refill normal Psych Appearance: grossly normal Mental Status: mental status grossly normal Affect: normal affect Attitude: cooperative Thought process: Normal thought process present Thought content: Normal thought content present Insight: Good insight present (Psych) Medical Decision Making Medical Decision Making MDM Narrative: Patient is a 52 year old assigned male at with a history of alcohol use presenting to the emergency department today with acute alcohol intoxication. Patient's physical exam was unremarkable. I explained my physical exam findings to the patient. I answered all questions asked by the patient. Patient's friend arrived in the department and stated that he would accept responsibility for the patient and get the patient home. Patient again confirmed he did not have any symptoms and all of his previous complaints have resolved. I stressed the importance of the patient taking his medication as prescribed. I stressed the importance of the patient following up with his primary care provider. I stressed the importance of the patient returning to the emergency department immediately if his symptoms were to worsen or if he were to develop any dizziness, shortness of breath, difficulty breathing, chest pain, blurry vision, loss of vision, nausea, vomiting, abdominal pain, fever, chills, back pain, or any other complaints. Patient verbalized agreement and understanding with this treatment plan and discharge. Differential Diagnosis Differential Diagnoses: The differential diagnosis associated with the presentation includes alcohol intoxication Discharge Plan Discharge Clinical Impression: Alcohol intoxication Patient Disposition: Home, Self-Care Instructions: Alcohol Intoxication (ED) Additional Instructions: Follow up with your primary care provider. Return to the emergency department immediately if your symptoms worsen or if you develop any dizziness, shortness of breath, difficulty breathing, chest pain, blurry vision, loss of vision, nausea, vomiting, abdominal pain, fever, chills, back pain, or any other complaints. Prescriptions: No Action magnesium oxide 400 mg (241.3 mg magnesium) tablet 400 mg PO DAILY Qty: 10 0RF Referrals: Catalina Liang MD [Primary Care Provider] - Print Language: Korean
[2022-08-27 15:07] VITALS: BP 143/100; PULSE 114; RESP 16; O2SAT 98
== END 2022-08-27 15:18 | disposition home or self-care (01) ==
PROVIDERS: Emergency Provider Emergency Medicine; PCP Internal Medicine
DX: F10.129 Alcohol abuse with intoxication, unspecified (principal); F17.210 Nicotine dependence, cigarettes, uncomplicated; Z71.6 Tobacco abuse counseling; Y90.9 Presence of alcohol in blood, level not specified
CPT/HCPCS: 99282; 99284

== ENCOUNTER 2023-01-11 09:57 | Emergency (ER) | payer OTHER, SELFPAY ==
--- NOTE | ~2023-01-11 | CT_ITS ---
EXAMINATION: CT HEAD WITHOUT CONTRAST CT CERVICAL SPINE WITHOUT CONTRAST CLINICAL INFORMATION: 52-year-old male with head trauma COMPARISON: 08/08/2022 CT scan of the head TECHNIQUE: CT of the head and cervical spine were performed without intravenous contrast. Multiplanar reformats were rendered and reviewed. This CT examination was performed using dose optimization techniques as appropriate, variously including the following: *Automated exposure control *Adjustment of mA and/or kV according to patient size (this includes techniques or standardized protocols for targeted exams where dose is matched to indication/reason for exam; i.e. extremities or head) *Use of iterative reconstruction technique DLP: 677 mGy-cm. FINDINGS: CT head: No intracranial hemorrhage, large infarction, or mass lesion is seen. No extra-axial collection is appreciated. The ventricles and sulci are prominent consistent with global volume loss. The visualized paranasal sinuses are well aerated and mastoid air cells reveal mucosal thickening of the right. CT cervical spine: Reveal mucosal thickening of the left frontal sinus. The vertebral body heights appear maintained. No cervical spine fracture is seen. The cervical alignment appears normal. There is straightening of cervical lordosis most likely due to muscle spasm. The paraspinal soft tissues appear within normal limits. The partially imaged lung apices appear clear. CT/CT head/brain wo IV con IMPRESSION: CT head: Mild global cerebral volume loss CT cervical spine: No cervical spine fracture or traumatic malalignment identified. Massive spasm with straightening of cervical lordosis
--- NOTE | ~2023-01-11 | CT_ITS ---
EXAMINATION: CT HEAD WITHOUT CONTRAST CT CERVICAL SPINE WITHOUT CONTRAST CLINICAL INFORMATION: 52-year-old male with head trauma COMPARISON: 08/08/2022 CT scan of the head TECHNIQUE: CT of the head and cervical spine were performed without intravenous contrast. Multiplanar reformats were rendered and reviewed. This CT examination was performed using dose optimization techniques as appropriate, variously including the following: *Automated exposure control *Adjustment of mA and/or kV according to patient size (this includes techniques or standardized protocols for targeted exams where dose is matched to indication/reason for exam; i.e. extremities or head) *Use of iterative reconstruction technique DLP: 677 mGy-cm. FINDINGS: CT head: No intracranial hemorrhage, large infarction, or mass lesion is seen. No extra-axial collection is appreciated. The ventricles and sulci are prominent consistent with global volume loss. The visualized paranasal sinuses are well aerated and mastoid air cells reveal mucosal thickening of the right. CT cervical spine: Reveal mucosal thickening of the left frontal sinus. The vertebral body heights appear maintained. No cervical spine fracture is seen. The cervical alignment appears normal. There is straightening of cervical lordosis most likely due to muscle spasm. The paraspinal soft tissues appear within normal limits. The partially imaged lung apices appear clear. CT/CT cervical spine wo IV con IMPRESSION: CT head: Mild global cerebral volume loss CT cervical spine: No cervical spine fracture or traumatic malalignment identified. Massive spasm with straightening of cervical lordosis
[2023-01-11 10:09] VITALS: BP 146/94; BP 152/88; PULSE 125; PULSE 91; RESP 16; TEMP 37; O2SAT 97; O2SAT 99; BMI 23.0
--- OUTSIDE RECORDS SUMMARY | 2023-01-11 10:30 | XMS_ITS | Continuity of Care Document ---
Author Name Unknown Organization [facility] Address [address] [place] [address]- Care Team Providers Care Craft Recruiter Name Role Phone Johan Bucio MD Primary Care Physician [phone] [place] [facility] [place] - 07/31/[address] [id number] Attending Physician: Not on Staff, Attending MD Allergies, Adverse Reactions, Alerts No Known Allergies Immunizations Given and Recorded Vaccine Date Status Refusal Reason tetanus/diphtheria/pertussis, acel(Tdap) 04/24/17 Given Medications Crutches See Instructions, # 1 kit, Maintenance, ambulate with crutches, 08/04/14 11:06:25, Compound Start Date: 08/04/14 Status: Ordered Knee Immobilizer See Instructions, # 1 application, Maintenance, for ambulation, 08/04/14 11:06:33, Compound Start Date: 08/04/14 Status: Ordered Naprosyn 500 mg oral tablet 1 tablet = 500 mg, By Mouth, 2 times a day, # 30 tablet, 0 Refills, Maintenance, 07/15/14 13:42:35,Tablet Start Date: 07/15/14 Status: Ordered Percocet-5/325 325 mg-5 mg oral tablet 1 tablet, By Mouth, Every 6 hours, PRN Pain , Moderate, # 12 tablet, 0 Refills, Maintenance Start Date: 12/31/12 Stop Date: 01/03/13 Status: Ordered Social History Social History Type Response Smoking Status Current every day sm oker; Tobacco user in household: No; Type: Cigarettes; Tobacco use times per day: 2 packs per day; entered on: 07/28/15 Sex Patient Care team information Care Team Personnel Name: Johan Bucio MD Position: [facility] Physician (General Medicine) Member Role: PCP Address: Address: [address] [facility] [place] [address]- Care Team Related Persons Name: JOHN SALMERON Address: home [address] [place] [address] Name: EPIFANIO SALMERON Address: home [address] [place] [id number]
--- OUTSIDE RECORDS SUMMARY | 2023-01-11 10:30 | XMS_ITS | Continuity of Care Document ---
Author Name Unknown Organization [facility] ter Address [address] [place] [address]- Care Team Providers Care Entry Level Accountant Name Role Phone Johan Bucio MD Primary Care Physician [phone] Encounter [facility] Date(s): 10/28/19 - 10/28/[address] [address]- [facility] Encounter Diagnosis Scalp laceration(Final) - 10/28/19 Discharge Disposition: A-D/C Home Attending Physician: Mariam Bailey MD Admitting Physician: Mariam Bailey MD Referring Physician: Not on Staff, Referring MD Allergies, Adverse Reactions, Alerts Substance Reaction Severity Status NKA Active Immunizations Given and Recorded Vaccine Date Status [...] Date: 12/31/12 Stop Date: 01/03/13 Status: Ordered Vital Signs Most recent to oldest [Reference Range]: 1 2 Height 180 cm (10/28/19 5:56 PM) Weight 66 kg (10/28/19 5:56 PM) Oxygen Saturation [94-100 %] 99 % (10/28/19 8:00 PM) 98 % (10/28/19 5:56 PM) Pulse Rate [55-90 bpm] 98 bpm *H* (10/28/19 8:00 PM) 97 bpm *H* (10/28/19 5:56 PM) Blood Pressure [90-138/55-84 mm Hg] 121/ 96mm Hg (10/28/19 8:00 PM) 140/90mm Hg *H* (10/28/19 5:56 PM) Respiratory Rate [16-30 br/min] 18 br/mi n (10/28/19 8:00 PM) 18 br/min (10/28/19 5:56 PM) Temperature [96.8-100.4 DegF] 98.2 DegF (10/28/19 8:00 PM) 98.2 DegF (10/28/19 5:56 PM) Mode of Delivery (Oxygen) Room air (10/28/19 8:00 PM) Room air (10/28/19 5:56 PM) Blood pressure sites Arm, left (10/28/19 8:00 PM) Arm, left (10/28/19 5:56 PM) Temperature Route Oral (10/28/19 8:00 PM) Oral (10/28/19 5:56 PM) Dry Weight 66 kg (10/28/19 5:56 PM) Social History Social History Type Response Smoking Status Current every day neelam chavez; Tobacco user in household: No; Type: Cigarettes; Tobacco use times per day: 2 packs per day; entered on: 07/28/15 Sex
--- OUTSIDE RECORDS SUMMARY | 2023-01-11 10:30 | XMS_ITS | Continuity of Care Document ---
Author Name Unknown Organization [facility] Address [address] [place] [address]- Care Team Providers Care Salt Maker Name Role Phone Johan Bucio MD Primary Care Physician [phone] Encounter [facility] [place] Date(s): 06/17/22 - 07/17/[address] [id number] Allergies, Adverse Reactions, Alerts No Known Allergies [...] Team Personnel Name: Johan Bucio MD Position: [facility] Physician (General Medicine) Member Role: PCP Address: Address: [address] [facility] [place] [address]- [place] Care Team Related Persons Name: JOHN SALMERON Address: home [address] [place] [address] Name: MASHAIMSAEL EPIFANIO Address: home [facility] [place] [address]
--- OUTSIDE RECORDS SUMMARY | 2023-01-11 10:30 | XMS_ITS | Continuity of Care Document ---
Author Name Unknown Organization [facility] ter Address [address] [place] [address]- Care Team Providers Care Commodities Requirements Analyst Name Role Phone Johan Bucio MD Primary Care Physician [phone] Encounter [facility] [place] Date(s): 11/20/19 - 11/21/[address] [address]- [facility] Discharge Disposition: A-D/C Home Attending Physician: Ryan Soni MD Admitting Physician: Ryan Soni MD Referring Physician: Ryan Soni MD Allergies, Adverse Reactions, Alerts Substance Reaction [...] Most recent to oldest [Reference Range]: 1 Oxygen Saturation [94-100 %] 100 % (11/20/19 11:58 PM) Pulse Rate [55-90 bpm] 96 bpm *H* (11/20/19 11:58 PM) Blood Pressure [90-138/55-84 mm Hg] 146/ 86mm Hg *H* (11/20/19 11:58 PM) Respiratory Rate [16-30 br/min] 20 br/mi n (11/20/19 11:58 PM) Temperature [96.8-100.4 DegF] 97.8 DegF (11/20/19 11:58 PM) Social History Social History Type Response Smoking Status Current every day neelam chavez; Tobacco user in household: No; Type: Cigarettes; Tobacco use times per day: 2 packs per day; entered on: 07/28/15 Sex
--- OUTSIDE RECORDS SUMMARY | 2023-01-11 10:30 | XMS_ITS | Continuity of Care Document ---
Author Name Unknown Organization [facility] Address [address] [place] [address]- Care Team Providers Care Clerical Adviser Name Role Phone Johan Bucio MD Primary Care Physician Encounter [facility] [place] [facility] [place] [id number] Date(s): 07/01/22 - 07/31/[address] [address]- Attending Physician: Rubio Avery Admitting Physician: Rubio Avery Referring Physician: Rubio Avery Allergies, Adverse Reactions, Alerts No Known Allergies [...] Team Personnel Name: Johan Bucio MD Position: [facility] Physician (General Medicine) Member Role: PCP Address: Address: [address] [facility] [place] [address]- Care Team Related Persons Name: JOHN SALMERON Address: home [address] [place] [address] Name: EPFIANIO SALMERON Address: home [address] [place] [id number]
--- NOTE | 2023-01-11 11:05 | ED_ITS ---
HPI - Fall General Chief Complaint: Fall Stated Complaint: MULTIPLE FALLS Time Seen by Provider: 01/11/23 10:25 Source: patient and RN notes reviewed Mode of arrival: ambulatory Limitations: no limitations History of Present Illness HPI Narrative: This is a 52-year-old male, with a past medical history of alcohol abuse, presenting to the emergency department with complaints of increased falls for the last month. Patient states that he has fallen 5 times in the past 2 days, admitting that he fell twice this morning. He states that this morning he was walking down the road and accidentally fell backwards striking his posterior head. He states that he has unsure what is causing him to have all of these frequent falls. He endorses a headache as well as neck pain today. He denies loss of consciousness, changes in his vision, difficulty breathing, chest pain, shortness a breath, nausea, vomiting or diarrhea. He does admit that he does drink alcohol. No other complaints or concerns at this time. MD complaint: fall Onset (ago): week(s) Fall from: standing Fall witnessed: no Place fall occurred: street Loss of consciousness: none Prolonged down time: no Symptoms prior to fall: none Context: tripped/slipped and alcohol use Related Data Previous Rx's Medication Instructions Recorded magnesium oxide 400 mg (241.3 mg 400 mg PO DAILY #10 tabs 08/08/22 magnesium) tablet Allergies Allergy/AdvReac Type Severity Reaction Status Date / Time No Known Allergies Allergy Verified 11/10/21 09:11 Review of Systems Review of Systems: Yes all other systems are reviewed and are negative Constitutional: Constitutional: Reports as per [facility] Past Medical History Medical History Alcohol abuse Anemia Back pain Bulging lumbar disc Chest pain Insomnia Numbness and tingling in left arm Vomiting of blood Surgical History H/O arthroscopy of left knee History of carpal tunnel surgery of right wrist Social History Social History Are you a primary healthcare administrative assistant to a significant other at home: No Do you presently have visiting nurse or other home services: No Alcohol intake: current Alcohol intake frequency: 3 or more drinks per day Alcohol type: beer Patient Tobacco Use Status: Current everyday Tobacco user Tobacco use type: Cigarette Cigarette Packs Per Day: 1 Cigarettes Per Day: 20 Years Smoked: 35 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al status: unemployed 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 Physical Exam Vital Signs: Vital Signs: Last Vital Signs Temp 98.6 F 01/11/23 10:09 Pulse 91 01/11/23 10:09 Resp 16 01/11/23 10:09 BP 146/94 H 01/11/23 10:09 Pulse Ox 99 01/11/23 10:09 O2 Del Method Room Air 01/11/23 10:09 BMI result Body Mass Index 23.0 Const: General: cooperative, comfortable and no acute distress Orientation/consciousness: patient oriented x3 Limitations: no limitations HEENT: Head: Yes normal to inspection, Yes normocephalic, Yes atraumatic, No Vaz's sign, No palpable skull fracture and No raccoon eyes Ears: hearing grossly normal bilaterally and TM's normal bilaterally (No hemotympanum) General nose exam: Normal external nose present Face and sinus: Yes normal facial exam Mouth: Normal oral and palatal mucosa present, oropharynx normal and moist mucous membranes Throat: Yes posterior oropharynx normal Eyes: General: appearance normal, both eyes and all related structures Eyelids: Yes eyelids normal Conjunctivae: conjunctivae normal Sclerae: sclerae normal Pupils: Equal, round and reactive pupils present EOM: EOMs intact bilaterally Neck: Other: Tenderness palpation along the cervical midline spine. Tenderness to palpation along the cervical paraspinous muscles Neck: Yes normal visual inspection, Yes full ROM and Yes no lymphadenopathy Lymphatic: no lymphadenopathy noted Chest: Chest palpation & inspection: normal inspection of the chest Resp: Effort & Inspection: normal respiratory effort and able to speak in complete sentences Auscultation: clear to auscultation bilaterally, no crackles, no rales, no rhonchi and no wheezes Cardio: Rate: regular rate Rhythm: regular rhythm Heart sounds: S1 normal heart sound present and S2 normal heart sound present GI: Inspection: Yes normal to inspection Skin: General skin exam: no rashes or lesions noted Trauma: no lacerations or abrasions Wounds: no wounds Neuro: General: patient oriented x3 and moves all extremities Cranial nerves: Yes Equal, round and reactive pupils present Extrem: General: Yes normal to inspection Right upper extremity: normal to inspection Left upper extremity: normal to inspection Right lower extremity: normal to inspection Left lower extremity: normal to inspection Course Reevaluation(s) Reevaluation #1: Patient awaiting head CT and cervical spine CT however is becoming increasingly and patient despite not having all these results back. I discussed with patient at length that we need to have these results to make sure that medically he does not have any sort of deadly processes including ICH or cervical spine fracture. We have not received any results. Patient still reporting that he needs to leave. Educated patient that this can have deadly consequences however patient is clinically sober as he is alert and oriented, able to make these decisions on his own. Patient walked out of the emergency department in cervical collar. Reevaluation #2: Results return, magnesium low at 1.2, ethanol level 352. Given these critical labs, I called patient. I spoke to patient and urged the importance of returning as he needs to be medicated with magnesium. Patient understands and reports that he may return later on today Time: 13:09 Medications Administered Discontinued Medications Generic Name Dose Route Start Last Admin Trade Name Freq PRN Reason Stop Dose Admin Nicotine Polacrilex 2 mg 01/11/23 11:05 01/11/23 11:14 Nicotine Polacrilex 2 Mg Gum BUCCAL 01/11/23 11:06 2 mg ONCE ONE Administration Medical Decision Making Medical Decision Making [facility] Narrative: 52-year-old male, with a past medical history of alcohol abuse, presenting to the emergency department with complaints of frequent falls. He states that today he struck the posterior aspect of the head. He is endorsing headaches. He is not sure what is causing him to fall so frequently. On arrival, vital signs within normal limits. Head is normal cephalic atraumatic, no hemotympanum. Patient is fully neurologically intact. Given patient is tender along his cervical midline spine, patient placed in cervical collar. Plan: Basic labs, head CT, cervical spine CT Differential Diagnosis Differential Diagnoses: The differential diagnosis associated with the presentation includes ICH, cervical spine fracture, hypo magnesium, alcohol abuse Lab Data [facility] Lab Attestation statement: I reviewed the patient's lab results. 01/11/23 12:09 01/11/23 11:38 Labs: Lab Results 01/11/23 01/11/23 Range/Units 11:38 12:09 WBC 5.4 (4.8-10.8) X10*3/uL RBC 3.39 L (4.60-5.80) X10*6/uL Hgb 12.0 L (14.0-18.0) g/dl Hct 33.4 L (42.0-52.0) % MCV 98.5 H (80.0-98.0) fL MCH 35.4 H (27.0-33.0) pg MCHC 35.9 (31.0-36.0) g/dl RDW 12.9 (11.0-16.0) % Plt Count 128 L D (160-400) X10*3/uL MPV 10.3 (9.4-12.4) fL Immature Gran % (Auto) 0.4 (0.0-0.4) % Neut % (Auto) 47.7 (45-73) % Lymph % (Auto) 33.0 (20-40) % [place] % (Auto) 16.1 H (2-11) % Eos % (Auto) 1.5 (0-4) % Baso % (Auto) 1.3 (0-2) % Lymph # (Auto) 1.8 (1.2-4.9) X10*3/uL [place] # (Auto) 0.9 (0.1-1.2) X10*3/uL Eos # (Auto) 0.1 (0.0-0.4) X10*3/uL Baso # (Auto) 0.1 (0.0-0.2) X10*3/uL Abs Immat Gran (auto) 0.02 (0.00-0.03) X10*3/uL Absolute Neuts (auto) 2.6 (2.0-8.3) x10*3/uL Absolute Nucleated RBC 0.000 (0.0-0.012) X10*3/uL Nucleated RBC % (auto) 0.0 (0.0-0.2) /100WBC Sodium 140 (135-145) mmol/L Potassium 3.5 (3.3-5.1) mmol/L Chloride 103 (96-108) mmol/L Carbon Dioxide 24 (22-29) mmol/L Anion Gap 17 (12-20) BUN 8 L (9-16) mg/dL Creatinine 0.69 (0.5-1.4) mg/dL Estim Creat Clear Calc 135.5 Estimated GFR > 60 Random Glucose 86 (60-115) mg/dL Calcium 8.8 (8.4-10.2) mg/dL Magnesium 1.2 L* (1.6-2.6) mg/dL Total Bilirubin 0.4 (0.0-1.0) mg/dL Direct Bilirubin 0.1 (0.0-0.5) mg/dL AST 72 H (5-37) U/L ALT 20 (0-40) U/L Alkaline Phosphatase 68 (39-117) U/L Total Protein 7.7 (6.5-8.0) g/dL Albumin 3.9 (3.5-5.0) g/dL Ethyl Alcohol 352 H* mg/dL Radiology Impression Discussion of test interpretation with radiology: I have reviewed the radiologist's reading. Radiologist Impression: EXAMINATION: CT HEAD WITHOUT CONTRAST CT CERVICAL SPINE WITHOUT CONTRAST CLINICAL INFORMATION: 52-year-old male with head trauma? COMPARISON: 08/08/2022 CT scan of the head TECHNIQUE: CT of the head and cervical spine were performed without intravenous contrast. Multiplanar reformats were rendered and reviewed. This CT examination was performed using dose optimization techniques as appropriate, variously including the following: *Automated exposure control *Adjustment of mA and/or kV according to patient size (this includes techniques or standardized protocols for targeted exams where dose is matched to indication/reason for exam; i.e. extremities or head) *Use of iterative reconstruction technique DLP: 677 mGy-cm. FINDINGS: CT head: No intracranial hemorrhage, large infarction, or mass lesion is seen. No extra-axial collection is appreciated. The ventricles and sulci are prominent consistent with global volume loss. The visualized paranasal sinuses are well aerated and mastoid air cells reveal mucosal thickening of the right. CT cervical spine: Reveal mucosal thickening of the left frontal sinus. The vertebral body heights appear maintained. No cervical spine fracture is seen. The cervical alignment appears normal. There is straightening of cervical lordosis most likely due to muscle spasm. The paraspinal soft tissues appear within normal limits. The partially imaged lung apices appear clear. CT/CT head/brain wo IV con IMPRESSION: ? CT head: Mild global cerebral volume loss ? CT cervical spine: No cervical spine fracture or traumatic malalignment identified. Massive spasm with straightening of cervical lordosis Dictated By: Alverto Westbrook MD EXAMINATION: CT HEAD WITHOUT CONTRAST CT CERVICAL SPINE WITHOUT CONTRAST CLINICAL INFORMATION: 52-year-old male with head trauma? COMPARISON: 08/08/2022 CT scan of the head TECHNIQUE: CT of the head and cervical spine were performed without intravenous contrast. Multiplanar reformats were rendered and reviewed. This CT examination was performed using dose optimization techniques as appropriate, variously including the following: *Automated exposure control *Adjustment of mA and/or kV according to patient size (this includes techniques or standardized protocols for targeted exams where dose is matched to indication/reason for exam; i.e. extremities or head) *Use of iterative reconstruction technique DLP: 677 mGy-cm. FINDINGS: CT head: No intracranial hemorrhage, large infarction, or mass lesion is seen. No extra-axial collection is appreciated. The ventricles and sulci are prominent consistent with global volume loss. The visualized paranasal sinuses are well aerated and mastoid air cells reveal mucosal thickening of the right. CT cervical spine: Reveal mucosal thickening of the left frontal sinus. The vertebral body heights appear maintained. No cervical spine fracture is seen. The cervical alignment appears normal. There is straightening of cervical lordosis most likely due to muscle spasm. The paraspinal soft tissues appear within normal limits. The partially imaged lung apices appear clear. CT/CT cervical spine wo IV con IMPRESSION: ? CT head: Mild global cerebral volume loss ? CT cervical spine: No cervical spine fracture or traumatic malalignment identified. Massive spasm with straightening of cervical lordosis Dictated By: Alverto Westbrook MD External Record Review External record reviewed: Inpatient record, Office record, Outpatient record, Prior outpatient labs, Prior outpatient radiology, Primary care record and Outside ED record Discharge Plan Discharge Clinical Impression: Closed head injury, Hypomagnesemia, ETOH abuse Patient Disposition: Elopement Prescriptions: No Action magnesium oxide 400 mg (241.3 mg magnesium) tablet 400 mg PO DAILY Qty: 10 0RF Interventions: ED Discharge Assessment Last Done: 01/11/23 12:20 Discharge Date/Time: 01/11/23 12:20
[2023-01-11] MEDS: Nicotine Polacrilex 2 MG GUM BUCCAL (11:14)
--- NOTE | 2023-01-11 11:14 | PC.NURSE ---
C-collar applied with assistance from MARGI yadav. pt tolerated well.
--- NOTE | 2023-01-11 11:26 | PC.NURSE ---
pt reporting that he needs to go smoke a cigarette. pt placed himself on the edge of the bed reporting he was going to go outside to smoke. educated pt on C-collar and not standing. pt continued to attempt to get out of bed.
--- NOTE | 2023-01-11 11:27 | PC.NURSE ---
medicated pt with nicorette gum. re-educated on staying in bed. pt continues to get up and sit at the edge of the bed. RONNY Daniel made aware. pt educated on fall prevention
--- NOTE | 2023-01-11 11:28 | PC.NURSE ---
walked pt to bathroom with 1x assist and pt using his cane. pt agreeable to put both feet back in his bed and at this time educated on not getting up
[2023-01-11 12:19] LABS: Basophils Absolute Auto 0.1 X10*3/uL (0.0-0.2); Basophils Percent Auto 1.3 % (0-2); Eosinophils Absolute Auto 0.1 X10*3/uL (0.0-0.4); Eosinophils Percent Auto 1.5 % (0-4); Hematocrit 33.4 % (42.0-52.0); Imm Gran Abs Auto 0.02 X10*3/uL (0.00-0.03); Imm Gran Pct Auto 0.4 % (0.0-0.4); Lymphocytes Absolute Auto 1.8 X10*3/uL (1.2-4.9); Mean Corpuscular HGB Conc 35.9 g/dl (31.0-36.0); Mean Corpuscular Hemoglobin 35.4 pg (27.0-33.0); Mean Corpuscular Volume 98.5 fL (80.0-98.0); Mean Platelet Volume 10.3 fL (9.4-12.4); Monocytes Absolute Auto 0.9 X10*3/uL (0.1-1.2); Monocytes Percent Auto 16.1 % (2-11); Neutrophils Absolute Auto 2.6 x10*3/uL (2.0-8.3); Neutrophils Percent Auto 47.7 % (45-73); Platelet Count 128 X10*3/uL (160-400); Red Blood Count 3.39 X10*6/uL (4.60-5.80); Red Cell Distribution Width 12.9 % (11.0-16.0); White Blood Count 5.4 X10*3/uL (4.8-10.8)
--- NOTE | 2023-01-11 12:19 | PC.NURSE ---
pt eloped- hospital clothing on bed.
[2023-01-11 12:28] LABS: Alanine Aminotransferase 20 U/L (0-40); Albumin Level 3.9 g/dL (3.5-5.0); Alkaline Phosphatase 68 U/L (39-117); Anion Gap 17 (12-20); Aspartate Amino Transferase 72 U/L (5-37); Bilirubin Direct 0.1 mg/dL (0.0-0.5); Bilirubin Total 0.4 mg/dL (0.0-1.0); Blood Urea Nitrogen 8 mg/dL (9-16); Calcium 8.8 mg/dL (8.4-10.2); Carbon Dioxide 24 mmol/L (22-29); Chloride 103 mmol/L (96-108); Creatinine Clr Calc Pharmacy 135.5; Estimated Glomerular Filt Rate > 60; Ethanol 352 mg/dL; Glucose Random 86 mg/dL (60-115); Magnesium 1.2 mg/dL (1.6-2.6); Potassium 3.5 mmol/L (3.3-5.1); Sodium 140 mmol/L (135-145); Total Protein 7.7 g/dL (6.5-8.0)
[2023-01-11 12:31] LABS: MANUAL DIFF FLAG NO
== END 2023-01-11 12:20 | disposition left against medical advice (07) ==
PROVIDERS: Physician Assistant Medical; Emergency Provider Emergency Medicine
DX: S09.90XA Unspecified injury of head, initial encounter (principal); F10.129 Alcohol abuse with intoxication, unspecified; Y90.8 Blood alcohol level of 240 mg/100 ml or more; W01.10XA Fall on same level from slipping, tripping and stumbling with subsequent striking against unspecified object, initial encounter; Y93.9 Activity, unspecified; Y92.9 Unspecified place or not applicable; Y99.9 Unspecified external cause status; R51.9 Headache, unspecified; M54.2 Cervicalgia; F17.210 Nicotine dependence, cigarettes, uncomplicated; Z71.6 Tobacco abuse counseling; Z79.899 Other long term (current) drug therapy
CPT/HCPCS: 36415; 70450; 72125; 80048; 80076; 80307; 83735; 85025; 99283; 99284

== ENCOUNTER 2023-01-11 13:54 | Emergency (ER) | payer OTHER, SELFPAY ==
--- NOTE | 2023-01-11 13:57 | ED.GENADULT ---
HPI - General Adult General Chief complaint: General Medical Stated complaint: sent by ? Related Data Previous Rx's Medication Instructions Recorded magnesium oxide 400 mg (241.3 mg 400 mg PO DAILY #10 tabs 08/08/22 magnesium) tablet Allergies Allergy/AdvReac Type Severity Reaction Status Date / Time No Known Allergies Allergy Verified 11/10/21 09:11 [facility] Past Medical History Medical History Alcohol abuse Anemia Back pain Bulging lumbar disc Chest pain Insomnia Numbness and tingling in left arm Vomiting of blood Surgical History H/O arthroscopy of left knee History of carpal tunnel surgery of right wrist Social History Social History Are you a primary managed care specialist to a significant other at home: No Do you presently have visiting nurse or other home services: No Alcohol intake: current Alcohol intake frequency: 3 or more drinks per day Alcohol type: beer Patient Tobacco Use Status: Current everyday Tobacco user Tobacco use type: Cigarette Cigarette Packs Per Day: 1 Cigarettes Per Day: 20 Years Smoked: 35 Advance Directives: No Advance Directives Information Provided: Yes 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al status: unemployed 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 Physical Exam ED Vital Signs: Vital Signs - 24 hr 01/11/23 13:59 Temperature 97.8 F Pulse Rate 106 H Respiratory Rate 18 Blood Pressure 154/99 H Pulse Oximetry 100 Oxygen Delivery Method Room Air BMI result Body Mass Index 21.3 Course Course Course Narrative: This is an RME: Additional HPI, ROS, PE not included below will be deferred to primary provider. 52 year old male presents after being called about his lab results. His magnesium was found to be low after he left against medical advice this morning. Patient admits to drinking one beer today. Plan: patient to go to the main emergency department, mag ordered Charge and provider aware patient is back Medical Decision Making Lab Data Labs: Lab Results 01/11/23 Range/Units 14:16 Ethyl Alcohol 341 H* mg/dL Discharge Plan Discharge Prescriptions: No Action magnesium oxide 400 mg (241.3 mg magnesium) tablet 400 mg PO DAILY Qty: 10 0RF
[2023-01-11 13:59] VITALS: BP 154/99; PULSE 106; RESP 18; TEMP 36.6; O2SAT 100; BMI 21.3
[2023-01-11 14:32] LABS: Ethanol 341 mg/dL
== END 2023-01-11 18:24 | disposition left against medical advice (07) ==
PROVIDERS: Physician Assistant; Emergency Provider Emergency Medicine
DX: R79.89 Other specified abnormal findings of blood chemistry (principal)
CPT/HCPCS: 36415; 80307; 99282; 99283

== ENCOUNTER 2023-08-18 08:39 | Emergency (ER) | payer OTHER, SELFPAY ==
--- NOTE | ~2023-08-18 | CT_ITS ---
EXAMINATION: CT HEAD WITHOUT CONTRAST CLINICAL INFORMATION: Left-sided numbness COMPARISON: None available. TECHNIQUE: Contiguous axial imaging was performed from the skull base to vertex without intravenous administration of contrast. This CT examination was performed using dose optimization techniques as appropriate, variously including the following: *Automated exposure control *Adjustment of mA and/or kV according to patient size (this includes techniques or standardized protocols for targeted exams where dose is matched to indication/reason for exam; i.e. extremities or head) *Use of iterative reconstruction technique DLP: 6.3 mGy-cm FINDINGS: Mild volume loss. No evolving infarct, mass lesion, mass effect, midline shift, hemorrhage or extra-axial fluid collections. Intraorbital structures are unremarkable. Mild left ethmoid sinus disease, remaining sinuses and mastoids are clear. Bony structures are intact. Soft tissues are unremarkable. CT/CT head/brain wo IV con IMPRESSION: No acute intracranial pathology. Mild left ethmoid sinus disease.
[2023-08-18 08:41] VITALS: BP 149/95; PULSE 111; RESP 20; TEMP 36.6; O2SAT 95; BMI 24.4
[2023-08-18 08:55] LABS: MANUAL DIFF FLAG NO
[2023-08-18 08:56] LABS: Basophils Absolute Auto 0.1 X10*3/uL (0.0-0.2); Basophils Percent Auto 0.8 % (0-2); Eosinophils Absolute Auto 0.1 X10*3/uL (0.0-0.4); Eosinophils Percent Auto 1.1 % (0-4); Hematocrit 40.1 % (42.0-52.0); Hemoglobin 13.7 g/dl (14.0-18.0); Imm Gran Abs Auto 0.02 X10*3/uL (0.00-0.03); Imm Gran Pct Auto 0.2 % (0.0-0.4); Lymphocytes Absolute Auto 4.3 X10*3/uL (1.2-4.9); Lymphocytes Percent Auto 43.2 % (20-40); Mean Corpuscular HGB Conc 34.2 g/dl (31.0-36.0); Mean Corpuscular Hemoglobin 31.4 pg (27.0-33.0); Monocytes Absolute Auto 0.8 X10*3/uL (0.1-1.2); Monocytes Percent Auto 7.8 % (2-11); Neutrophils Absolute Auto 4.6 x10*3/uL (2.0-8.3); Neutrophils Percent Auto 46.9 % (45-73); Platelet Count 248 X10*3/uL (160-400); Red Blood Count 4.36 X10*6/uL (4.60-5.80); Red Cell Distribution Width 13.7 % (11.0-16.0); White Blood Count 9.8 X10*3/uL (4.8-10.8)
[2023-08-18 09:31] LABS: Anion Gap 18 (12-20); Blood Urea Nitrogen 13 mg/dL (9-16); Calcium 9.4 mg/dL (8.4-10.2); Carbon Dioxide 24 mmol/L (22-29); Chloride 103 mmol/L (96-108); Creatinine Clr Calc Pharmacy 101.1; Estimated Glomerular Filt Rate > 60; Glucose Random 97 mg/dL (60-115); Potassium 4.1 mmol/L (3.3-5.1); Sodium 141 mmol/L (135-145)
== END 2023-08-18 11:06 | disposition left against medical advice (07) ==
PROVIDERS: Emergency Provider Emergency Medicine
DX: R20.0 Anesthesia of skin (principal)
CPT/HCPCS: 36415; 70450; 80048; 85025; 99281; 99284

== ENCOUNTER 2023-08-18 18:44 | Emergency (ER) | payer OTHER, SELFPAY ==
--- NOTE | ~2023-08-18 | CT_ITS ---
EXAMINATION: CT ANGIOGRAM HEAD CT ANGIOGRAM NECK CLINICAL INFORMATION: Reason for Exam l sided weakness COMPARISON: Same-day CT head TECHNIQUE: Initial noncontrast mold tooling technician imaging of the head and neck was performed. Comparison is made with noncontrast head CT from earlier today. Test bolus sequences followed by intravenous administration 70 mL of the peak 350. Helical imaging was performed in the axial plane from the aortic arch to the skull vertex. Delayed postcontrast imaging of the head was also performed. The data was processed at the dairy manufacturing technologist's workstation for generation of MIP sequences. Angled MIPs and volume rendered reformatted images were also generated at an offline 3D workstation. Stenoses are assessed in accordance with Narayanan et al. Quantification of Carotid Stenosis on CT Angiography. AJR 2006. 27(1):13-19. [address] CT examination was performed using dose optimization techniques as appropriate, variously including the following: *Automated exposure control *Adjustment of mA and/or kV according to patient size (this includes techniques or standardized protocols for targeted exams where dose is matched to indication/reason for exam; i.e. extremities or head) *Use of iterative reconstruction technique DLP: 1507.11 mGy-cm mGy-cm FINDINGS: CT HEAD: No abnormal intracranial enhancement. Please see separately dictated CT scan head for additional findings. Scattered mucosal thickening in the paranasal sinuses, most prominent in the ethmoid air cells. The mastoid air cells are well-aerated. CTA HEAD: Suboptimal secondary to significant intracranial venous contamination. Anterior circulation: Right internal carotid artery: Atherosclerosis without flow-limiting stenosis. Right middle cerebral artery: No hemodynamically significant stenosis. Right anterior cerebral artery: No hemodynamically significant stenosis. Left internal carotid artery: No hemodynamically significant stenosis. Left middle cerebral artery: No hemodynamically significant stenosis. Left anterior cerebral artery: No hemodynamically significant stenosis. Posterior circulation: Right vertebral artery: No hemodynamically significant stenosis. Left vertebral artery: No hemodynamically significant stenosis. Basilar artery: No hemodynamically significant stenosis. Right posterior cerebral artery: No hemodynamically significant stenosis. Left posterior cerebral artery: No hemodynamically significant stenosis. No high flow vascular malformation or significant aneurysmal dilatation is visualized. The major dural venous sinuses are grossly within normal limits given arterial technique. CTA NECK: Aortic arch: Normal anatomy. Scattered atherosclerosis of the thoracic aorta and proximal great vessels. Right common carotid artery: No hemodynamically significant stenosis. Right proximal internal carotid artery: No hemodynamically significant stenosis. Right mid/distal internal carotid artery: No hemodynamically significant stenosis. Left common carotid artery: No hemodynamically significant stenosis. Left proximal internal carotid artery: Atherosclerosis without flow-limiting stenosis. Left mid/distal internal carotid artery: No hemodynamically significant stenosis. Right vertebral artery: Atherosclerosis at the origin with moderate stenosis. Left vertebral artery: No hemodynamically significant stenosis. CT NECK: Trace paraseptal edematous changes at the lung apices.Predominantly absent dentition. Multilevel degenerative changes of the cervical spine. CT/CT angio head neck stroke IMPRESSION: CTA NECK: Moderate stenosis at the right vertebral artery origin. CTA HEAD: No proximal vessel occlusion or high-grade stenosis. This critical result was discussed with Dr. Grullon at 20:28 on 08/18/2023 and it was ascertained that the content and urgency of the report was understood at the time of direct communication.
--- NOTE | 2023-08-18 18:52 | ECG_ITS ---
Test Reason : LEFT SIDE PAIN Blood Pressure : / mmHG Vent. Rate : 106 BPM Atrial Rate : 106 BPM P-R Int : 164 ms QRS Dur : 088 ms QT Int : 356 ms P-R-T Axes : 064 074 067 degrees QTc Int : 472 ms Sinus tachycardia Otherwise normal ECG When compared with ECG of 08-AUG-2022 11:16, No significant change was found Referred By: Jori Azar Electronically Signed By:JESSICA ROJO MD
[2023-08-18 18:53] VITALS: BP 154/72; PULSE 120; O2SAT 98
[2023-08-18 18:58] VITALS: BP 165/96; PULSE 109; RESP 18; TEMP 36.8; O2SAT 98; BMI 23.5
--- NOTE | 2023-08-18 18:59 | ED.NEUROSD ---
HPI - Neuro Symptoms/Deficit General Chief Complaint: Stroke Stated Complaint: L SIDE WEAKNESS & TINGLING, WAS HERE THIS MORNING Time Seen by Provider: 08/18/23 18:52 Source: patient Mode of arrival: EMS Limitations: no limitations History of Present Illness HPI Narrative: Patient with history of alcohol abuse complaining of left-sided numbness since 23:00 yesterday started from the head all the way to the legs feeling off balance and dizzy complaining of chest pain also was here earlier 08:[address] scan of the head which was negative labs were normal patient left without being seen comes here as still feeling numbness no speech problem no difficulty in swallowing no tremor patient also complaining of chest pain which is reproducible no shortness a breath Related Data Previous Rx's Medication Instructions Recorded magnesium oxide 400 mg (241.3 mg 400 mg PO DAILY #10 tabs 08/08/22 magnesium) tablet Allergies Allergy/AdvReac Type Severity Reaction Status Date / Time No Known Allergies Allergy Verified 11/10/21 09:11 Review of Systems Review of Systems: Yes all other systems are reviewed and are negative PMFSH Past Medical History Medical History Alcohol abuse Back pain Anemia Numbness and tingling in left arm Insomnia Vomiting of blood Chest pain Bulging lumbar disc Surgical History History of carpal tunnel surgery of right wrist H/O arthroscopy of left knee Social History Social History Are you a primary healthcare administrator to a significant other at home: No Do you presently have visiting nurse or other home services: No Alcohol intake: current Alcohol intake frequency: 3 or more drinks per day Alcohol type: beer Patient Tobacco Use Status: Current everyday Tobacco user Tobacco use type: Cigarette Cigarette Packs Per Day: 1 Cigarettes Per Day: 20 Years Smoked: 35 Smoked in Last 30 Days: No Use of substances other than those prescribed or required for medical reasons: No Advance Directives: No Advance Directives Information Provided: No 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al status: unemployed 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 Physical Exam Vital Signs: Vital Signs: Last Vital Signs Temp 98.0 F 08/18/23 21:47 Pulse 97 08/18/23 21:47 Resp 20 08/18/23 21:47 BP 109/78 08/18/23 21:47 Pulse Ox 98 08/18/23 21:47 O2 Del Method Room Air 08/18/23 21:47 BMI result Body Mass Index 23.5 Appearance: Alert. Oriented X3. No acute distress. Eyes: PERRLA, No Nystagmus ENT: Pharynx normal. Oral Mucosa moist Neck: Normal inspection. Neck supple. CVS: Normal heart rate and rhythm. Pulses normal. Respiratory: No respiratory distress. Equal air entry bilateral, no wheezing/rales/rhonchi Abdomen: Soft and nontender. Bowel sounds are present, no mass palpable, no CVA tenderness Skin: Skin warm and dry. Normal skin color. Normal skin turgor. Extremities: No lower extremity edema. No calf tenderness dupuytren's contracture left hand Neuro: Oriented X 3. No motor deficit. No sensory deficit.No cerebellar signs , cranial nerves II-XII intact Medications Administered Discontinued Medications Generic Name Dose Route Start Last Admin Trade Name Freq PRN Reason Stop Dose Admin Iohexol 65 ml 08/18/23 19:32 08/18/23 19:33 Iohexol 350 Mg/Ml 100 Ml Infus..Btl IV 08/18/23 19:33 65 ml ONCE ONE Administration Medical Decision Making Medical Decision Making [facility] Narrative: Patient with vague left-sided numbness without any motor deficit workup is negative patient ambulatory in the ED without any significant weakness CTA head is negative patient advised to stop drinking and follow with PCP Differential Diagnosis Differential Diagnoses: The differential diagnosis associated with the presentation includes TIA/CVA/anxiety/hypomagnesemia Lab Data [facility] Lab Attestation statement: I reviewed the patient's lab results. Labs: Lab Results 08/18/23 Range/Units 19:38 Magnesium 1.6 (1.6-2.6) mg/dL Troponin I High Sens < 2.7 (<3.5-35.0) ng/L Ethyl Alcohol 274 mg/dL Independent Interpretation I performed an independent interpretation of an: CT Scan Radiology Impression Discussion of test interpretation with radiology: I have reviewed the radiologist's reading. NIH Stroke Scale Internal: Initial- Upon Arrival Level of Consciousness: Alert Level of Consciousness Questions: Answers both questions correctly Level of Consciousness Commands: Performs both tasks correctly Best Gaze: Normal Visual: No visual loss Facial Palsy: Normal Motor Arm (Right): No drift Motor Arm (Left): No drift Motor Leg (Right): No drift Motor Leg (Left): No drift Limb Ataxia: Absent Sensory: Normal Best Language: No aphasia Dysarthia: Normal Extinction and Inattention: No abnormality Score: 0 Discharge Plan Discharge Clinical Impression: Paresthesia Patient Disposition: Home, Self-Care Instructions: Paresthesia (ED) Additional Instructions: Stop drinking alcohol Follow with your PCP Prescriptions: No Action magnesium oxide 400 mg (241.3 mg magnesium) tablet 400 mg PO DAILY Qty: 10 0RF Interventions: ED Discharge Assessment Last Done: 08/18/23 21:47 Discharge Date/Time: 08/18/23 21:44
[2023-08-18] MEDS: iohexoL 350 MG/ML 100 ML INFUS..BTL 65 ML IV (19:33)
--- OUTSIDE RECORDS SUMMARY | 2023-08-18 19:55 | XMS_ITS | Continuity of Care Document ---
Author Name Unknown Organization [facility] Address [address] [place] [id number] Care Team Providers Care Freight Rate Specialist Name Role Phone Johan Bucio MD Primary Care Physician [phone] Encounter [facility] Date(s): 02/26/23 - 03/04/[address] [id number]- Encounter Diagnosis Alcoholic ketoacidosis(Final) - 02/26/23 Hypoglycemia(Final) - 02/26/23 Alcohol withdrawal(Final) - 02/26/23 Discharge Disposition: A-D/C Intermediate, Fdc, or Fpc Fac Attending Physician: Lorena Penaloza MD Admitting Physician: Azeb Mata MD Referring Physician: Not on Staff, Referring MD Allergies, Adverse Reactions, Alerts No Known Allergies Immunizations Given and Recorded Vaccine Date Status Refusal Reason tetanus/diphtheria/pertussis, acel(Tdap) 04/24/17 Given Medications folic acid 1 mg oral tablet 1 mg, By Mouth, Daily, Refills 0, Maintenance, 03/02/23 9:35:00 EDT, Partial fill upon patient request if the prescription is for a schedule II opioid drug. Start Date: 03/02/23 Status: Ordered magnesium oxide 400 mg oral tablet = 400 mg, By Mouth, 2 times a day, 0 Refills, Maintenance, 03/02/23 9:35:00 EDT, Tablet, Partial fill upon patient request if the prescription is for a schedule II opioid drug. Start Date: 03/02/23 Stop Date: 03/09/23 Status: Ordered multivitamin with minerals Antioxidant Multiple Vitamins and Minerals oral tablet 2 tablet, By Mouth, Daily, 0 Refills, Maintenance, 02/27/23 11:49:00 EDT, Partial fill upon patientrequest if the prescription is for a schedule II opioid drug. Start Date: 02/27/23 Status: Ordered Potassium Chloride Packet = 40 mEq, By Mouth, Daily, 0 Refills, Maintenance, 03/02/23 9:36:00 EDT, Packet, Partial fill upon patient request if the prescription is for a schedule II opioid drug. Start Date: 03/02/23 Stop Date: 03/07/23 Status: Ordered Pyridoxine Tablet 50 mg, By Mouth, Daily, Refills 0, Maintenance, 03/02/23 9:36:00 EDT, Partial fill upon patient request if the prescription is for a schedule II opioid drug. Start Date: 03/02/23 Status: Ordered senna 187 mg oral tablet 1 tablet = 8.6 mg, By Mouth, 2 times a day, PRN Constipation, 0 Refills, Maintenance, 03/02/23 9:37:00 EDT, Tablet, Partial fill upon patient request if the prescription is for a schedule II opioid drug. Start Date: 03/02/23 Status: Ordered Vitamin B1 100 mg oral tablet 100 mg, 1, tablet, By Mouth, Daily, Refills 0, Maintenance, 02/27/23 11:50:00 EDT, Partial fill upon patient request if the prescription is for a schedule II opioid drug. Start Date: 02/27/23 Status: Ordered Results Radiology Reports * Exam Date Time Procedure Performing Provider Status 03/01/23 7:19 PM US Doppler Ext Upper Venous Right María Goncalves; Auth (Verified) Notes: (US Doppler Ext Upper Venous Right) Reason For Exam: r/o DVT;Pain/Tenderness Extremities RESULT: US Doppler Ext Upper Venous Right US Doppler Ext Upper Venous Right Reason: Pain Tenderness Extremities; r o DVT; Clinical Question(s): Thrombosis; Order Comment: 03 01 2023 17:26:05 EDT attempted to call pt down, nurse not available, will try again later -SS COMPARISON: None. IMAGING TECHNIQUE: Ultrasound examination of the upper extremity deep venous system was performed using grayscale, color, and spectral wave analysis including response to compression. Assessment includes the contralateral jugular and subclavian vein. FINDINGS: Internal jugular vein: Patent. No thrombosis. Subclavian vein: Patent. No thrombosis. Axillary vein: Patent. No thrombosis. Brachial vein: Patent. No thrombosis. Basilic vein: Patent. No thrombosis. Cephalic vein: Difficult to visualize. No thrombosis. Contralateral internal jugular vein: Patent. No thrombosis. Contralateral subclavian vein: Patent. No thrombosis. IMPRESSION: No evidence of venous thrombosis. WSN: [id number] Ordering Physician: Washington Chambers Dictated By: Timbo Rockwell MD Dictated Date/Time: 03/01/23 7:39 pm Reviewed By: Timbo Rockwell MD Signed By: Timbo Rockwell MD Signed Date/Time: 03/01/23 7:39 pm Transcribed By: FAM Transcribed Date/Time: 03/01/23 7:38 pm * Exam Date Time Procedure Performing Provider Status 03/01/23 12:23 PM Wrist Comp Min 3 Views Right Maritza Wells (Verified) Notes: (Wrist Comp Min 3 Views Right) Reason For Exam: pain, swelling, limited ROM, reported fall;Pain RESULT: Wrist Comp Min 3 Views Right Wrist Comp Min 3 Views Right Reason: Pain; pain, swelling, limited ROM, reported fall; Clinical Question(s): Fracture COMPARISON: None. FINDINGS: No fracture or dislocation. No arthritic change. Normal carpal configuration. Intact radial and ulnar styloid processes. Soft tissue swelling about the wrist. IMPRESSION: Soft tissue swelling, but no underlying acute bone abnormality. I have personally reviewed the images and I agree with this report. WSN: [id number] Ordering Physician: Washington Chambers Dictated By: Nimesh Sarmiento MD Dictated Date/Time: 03/01/23 4:25 pm Reviewed By: Keshav Doherty MD, V Signed By: Keshav Doherty MD, V Signed Date/Time: 03/01/23 4:30 pm Transcribed By: FAM Transcribed Date/Time: 03/01/23 4:23 pm * Exam Date Time Procedure Performing Provider Status 02/26/23 10:[address] Cervical Spine W/O Contrast Sol Smith; Abdon (Verified) Notes: (CT Cervical Spine W/O Contrast) Reason For Exam: Neck trauma, dangerous injury mechanism;Other: RESULT: CT Cervical Spine W/O Contrast CT Head/Brain W/O Contrast, CT Cervical Spine W/O Contrast CLINICAL INDICATION: Mechanical fall with head strike. Altered mental status.. PRIOR EXAMS: 10/28/2019. TECHNIQUE: Incremental CT without contrast through the head was formatted in axial and coronal plane. Spiral CT without contrast through the cervical spine was formatted in 3 planes. Automatic tube modulation was used for the cervical spine and iterative dose reconstruction was used for both the head and cervical spine to optimize scan parameters and image quality. RADIATION DOSE PARAMETERS: CTDIvol Body: 12.00 mGy, DLP Body: 305 mGy*cm. CTDIvol Head: 41.20 mGy, DLP Head: 1007 mGy*cm. FINDINGS: BRAIN There is no infarct. There is no intracerebral hemorrhage. There is no mass. VENTRICLES AND SULCI: The ventricles and sulci are symmetrical and show mild atrophy.. WHITE MATTER: There is a small amount of white matter disease. EXTRA AXIAL SPACES: There is no abnormal epidural, subdural, or subarachnoid blood or fluid. SKULL: There is no skull fracture.. PARANASAL SINUSES: Clear. TEMPORAL BONES: The middle ear cavities are clear. Opacification of a small minority of the right mastoid air cells. Left mastoids clear. CERVICAL VERTEBRAL BODIES: There is no fracture. There is no focal bony lesion.. ALIGNMENT OF CERVICAL SPINE: The cervical vertebral bodies are in normal alignment.. CERVICAL DEGENERATIVE CHANGES: Minimal degenerative change. LUNG APICES: No pneumothorax. IMPRESSION: HEAD 1. No acute intracranial abnormality. 2. No skull fracture. CERVICAL SPINE: 1. There is no fracture. There is no focal bony lesion. 2. Normal alignment. 3. Trace degenerative change. WSN: [id number] Ordering Physician: Rosa Larios Dictated By: Lobo Mccloud MD Dictated Date/Time: 02/26/23 10:40 a Reviewed By: Lobo Mccloud MD Signed By: Lobo Mccloud MD Signed Date/Time: 02/26/23 10:40 am Transcribed By: FAM Transcribed Date/Time: 02/26/23 10:31 am * Exam Date Time Procedure Performing Provider Status 02/26/23 10:[address] Head/Brain W/O Contrast Vicky Smith; Auth (Verified) Notes: (CT Head/Brain W/O Contrast) Reason For Exam: Head trauma, mod-severe;Other: RESULT: CT Head/Brain W/O Contrast CT Head/Brain W/O Contrast, CT Cervical Spine W/O Contrast CLINICAL INDICATION: Mechanical fall with head strike. Altered mental status.. PRIOR EXAMS: 10/28/2019. TECHNIQUE: Incremental CT without contrast through the head was formatted in axial and coronal plane. Spiral CT without contrast through the cervical spine was formatted in 3 planes. Automatic tube modulation was used for the cervical spine and iterative dose reconstruction was used for both the head and cervical spine to optimize scan parameters and image quality. RADIATION DOSE PARAMETERS: CTDIvol Body: 12.00 mGy, DLP Body: 305 mGy*cm. CTDIvol Head: 41.20 mGy, DLP Head: 1007 mGy*cm. FINDINGS: BRAIN There is no infarct. There is no intracerebral hemorrhage. There is no mass. VENTRICLES AND SULCI: The ventricles and sulci are symmetrical and show mild atrophy.. WHITE MATTER: There is a small amount of white matter disease. EXTRA AXIAL SPACES: There is no abnormal epidural, subdural, or subarachnoid blood or fluid. SKULL: There is no skull fracture.. PARANASAL SINUSES: Clear. TEMPORAL BONES: The middle ear cavities are clear. Opacification of a small minority of the right mastoid air cells. Left mastoids clear. CERVICAL VERTEBRAL BODIES: There is no fracture. There is no focal bony lesion.. ALIGNMENT OF CERVICAL SPINE: The cervical vertebral bodies are in normal alignment.. CERVICAL DEGENERATIVE CHANGES: Minimal degenerative change. LUNG APICES: No pneumothorax. IMPRESSION: HEAD 1. No acute intracranial abnormality. 2. No skull fracture. CERVICAL SPINE: 1. There is no fracture. There is no focal bony lesion. 2. Normal alignment. 3. Trace degenerative change. WSN: [id number] Ordering Physician: Rosa Larios Dictated By: Lobo Mccloud MD Dictated Date/Time: 02/26/23 10:40 a Reviewed By: Lobo Mccloud MD Signed By: Lobo Mccloud MD Signed Date/Time: 02/26/23 10:40 am Transcribed By: FAM Transcribed Date/Time: 02/26/23 10:31 am * Exam Date Time Procedure Performing Provider Status 02/26/23 10:17 AM Chest 2 Views Frontal and Lat Cathy Uriostegui; Auth (Verified) Notes: (Chest 2 Views Frontal and Lat) Reason For Exam: cough, altered mental status;Other: RESULT: Chest 2 Views Frontal and Lat Chest 2 Views Frontal and Lat Hx of Present Illness: Pain after fall COMPARISON: 07/28/2015 FINDINGS: LINES AND TUBES: None. LUNGS AND PLEURA: Clear lungs. Normal pulmonary vascularity. No pleural effusion. No pneumothorax. HEART, MEDIASTINUM AND MARI: Heart is normal in size. Normal mediastinal and hilar contour. BONES AND SOFT TISSUES: Normal. IMPRESSION: Normal. WSN: [id number] Ordering Physician: Rosa Larios Dictated By: Pietro Benjamin MD Dictated Date/Time: 02/26/23 10:22 a Reviewed By: Pietro Benjamin MD Signed By: Pietro Benjamin MD Signed Date/Time: 02/26/23 10:22 am Transcribed By: FAM Transcribed Date/Time: 02/26/23 10:17 am Vital Signs Most recent to oldest [Reference Range]: 1 2 3 Height 180 cm (03/04/23 1:56 PM) 180 cm (03/04/23 7:13 AM) 180 cm (03/03/23 9:30 PM) Weight 65.8 kg (02/28/23 8:32 AM) Oxygen Saturation [94-100 %] 98 % (03/04/23 1:56 PM) 96 % (03/04/23 7:13 AM) 97 % (03/03/23 9:30 PM) Pulse Rate [55-90 bpm] 64 bpm (03/04/23 5:03 PM) 97 bpm *H* (03/04/23 1:56 PM) 84 bpm (03/04/23 8:50 AM) Body Mass Index [18.5-24.99 kg/m2] 20.31 kg/m2 (02/28/23 8:32 AM) Blood Pressure [90-138/55-84 mm Hg] 144/80mm Hg *H* (03/04/23 5:03 PM) 146/89mm Hg *H* (03/04/23 1:56 PM) 158/82mm Hg *H* (03/04/23 8:50 AM) Respiratory Rate [16-30 br/min] 18 br/min (03/04/23 5:03 PM) 16 br/min (03/04/23 1:56 PM) 18 br/min (03/04/23 8:50 AM) Temperature [96.8-100.4 DegF] 98.2 DegF (03/04/23 5:03 PM) 98.9 DegF (03/04/23 1:56 PM) 97.4 DegF (03/04/23 8:50 AM) Mode of Delivery (Oxygen) Room air (03/04/23 1:56 PM) Room air (03/04/23 7:13 AM) Room air (03/03/23 9:30 PM) Blood pressure sites Arm, right (03/04/23 1:56 PM) Arm, right (03/04/23 7:13 AM) Arm, right (03/03/23 9:30 PM) Temperature Route Oral (03/04/23 5:03 PM) Oral (03/04/23 1:56 PM) Oral (03/04/23 8:50 AM) Dry Weight 65.8 kg (02/28/23 8:32 AM) Social History Social History Type Response Smoking Status Current every day sm oker; Tobacco user in household: No; Type: Cigarettes; Tobacco use times per day: 2 packs per day; entered on: 07/28/15 Sex Admission evaluation note * James Kirk MD: PERFORM Event Display: Admission Note Authored Date: [id number] Patient: ??DIANE SALMERON ? Age:??53 Years?Sex:??Male?:??1970?? HPI: 53-year-old male with history of alcohol use disorder, multiple falls, presenting from group home with confusion. ? Patient is unable to provide details of history. ?? Accoridng to notes, EMS??says they were initially called to the present for severe alcohol withdrawal. ??When they got to the shelter the patient seemed very confused to them he was telling them that he was at his parents house and saying other things that did not make sense. ??He did not appear in alcohol withdrawal to EMS. ? Notes from the facility describe alcohol withdrawal symptoms, confusion, stumbling around and then diarrhea.??Yesterday he was walking with a walker, but today he required wheelchair for increasing weakness. ? Patient denies headache, chest pain, shortness of breath, abdominal pain, nausea/vomiting, dysuria.?Endorses drinking two beers a day. ?? It is unclear how long he has been incarcerated, it may be that he has only been there for 24 hrs. ?? In the ED: T 98.0 BP 133/96 HR 117 RR 18 O2 97% RA WBC 10.7, HGB 12.4, PLT 98 Bicarb 15, Cr 1.1, gluc 49, Mg 0.[address]R normal CT head and neck unremarkable He was given 2gm mag, 40 mEq KCl, dextrose, IV thiamine, phenobarb 65 mg x1 and admitted. ?? ROS: As above, rest of full review negative. ?? PMH: Alcoholism ?? MEDS: On Librium at facility ?? Social: Lived independnetly, now incarcerated ?? Exam: Temperature?98 ?(09:52) Systolic Blood Pressure?142 ?(16:14) Diastolic Blood Pressure?104 ?(16:14) Pulse?103 ?(16:13) SpO2?100 ?(14:02) Respiratory Rate?16 ?(16:13) GEN: Anxious, flushed, tremulous HEENT: Moist membranes HEART: Warm extremities LUNGS: Breathing comfortably room air ABD: Soft, nontender : No guillory EXT: Warm, no edema NEURO: Alert, oriented to [facility], February, can't recall specifics, doesn't know that he's currently incarcerated PSYCH:??Anxious and cooperative? Assessment and Plan: 53-year-old male with history of alcohol use disorder, multiple falls, presenting from group home with confusion. ? # Tremors # Confusion # EtOH withdrawal Clinically correlates wtih alcohol withdrawal, appears he was on librium at his facility. Got Thiamine in the ED. - Ciwa with ativan - clonidine - IV thiamine ?? # Hypoglycemia Replenished. - trend POC ?? # HypoMag Replenished. - trend ? DVT - low risk DIET - regular CODE - full ?? EKG study * Event Display: ECG 12-Lead Authored Date: [id number] Please click on pdf link to open report * Event Display: ECG 12-Lead Authored Date: [id number] Ventricular Rate: 131 BPM Atrial Rate: 131 BPM P-R Interval: 132 ms QRS Duration: 76 ms Q-T Interval: 304 ms QTC Calculation(Bazett): 448 ms P [place]: 68 degrees R [place]: 68 degrees T [place]: 65 degrees Sinus tachycardia Otherwise normal ECG When compared with ECG of 26-FEB-2023 09:54, No significant change was found Confirmed by ENE GOMEZ [facility] ([id number]) on 03/02/2023 5:14:55 PM [place] * Event Display: ECG 12-Lead Authored Date: [id number] Please click on pdf link to open report * Event Display: ECG 12-Lead Authored Date: [id number] Ventricular Rate: 107 BPM Atrial Rate: 107 BPM P-R Interval: 156 ms QRS Duration: 86 ms Q-T Interval: 372 ms QTC Calculation(Bazett): 496 ms P [place]: 74 degrees R [place]: 80 degrees T [place]: 56 degrees Sinus tachycardia Possible Left atrial enlargement Borderline ECG When compared with ECG of 24-APR-2017 00:50, QRS duration has decreased ST no longer elevated in Inferior leads ST now depressed in Anterior leads Confirmed by [facility] ([id number][facility] on 02/26/2023 10:58:54 AM [place] * Flower Pollack LPN: PERFORM, SIGN, VERIFY Event Display: [facility] Authored Date: [id number] Patient: DIANE SALMERON Age: 53 years Sex: Male : 1970 Associated Diagnoses: None Author: Flower Pollack LPN Findings Problem Related to Alteration in Psychosocial : Alteration in Psychosocial Function/new 03/04/2023 18:00 EDT Alteration in Psychosocial Related to Acute Alcohol Withdrawal Goals & Outcomes, Psychosocial Pt will identify stressors leading up to event, Pt/caregiver will express feelings/needs/fears /concerns, Pt/caregiver will maintain/obtain psychological stability,Pt successfully withdraws with minimal side effects, Pt will develop plan for sobriety after discharge Interventions, Psychosocial Resolved problem, Interventions no longer in effect Goals/Interventions, Psychosocial Yes Psychosocial, Problem Start 02/28/2023 17:01 Reviewed Plan with, Psychosocial Patient Patient Progression, Psychosocial Resolved problem Psychosocial, Problem Resolved 03/04/2023 18:41 . Evaluation No acute events. Pt alert, oriented x4, calm and cooperative with care. D/C paperwork reviewed withpt and signed by two nurses. IV access removed, DCD intact. Eating and eliminating, last noted BM this afternoon.. Discharge Information Rehabilitation Discharge : Rehab Discharge Index 03/04/2023 9:23 EDT Walker: distance >50 03/03/2023 9:02 EDT Comments on treatment indicated 53-year-old male with history of alcohol use disorder, multiple falls, presenting from group home with confusion. WBAT, fall risk. F/u PT for continued gait training, transfer training, balance, ther ex, ther act. Rec: Rehab Walker: distance 20-50 Distance pt will ambulate 300ft with RW Full chart review completed Yes Hospital course Hospital course Other findings Other findings Plan of care PT Gait training, Transfer training, Therapeutic exercise, Functional Activities, Balance training, Neuromuscular education * Alice Christina RN: PERFORM, SIGN, VERIFY Event Display: Progress Note Hospital Authored Date: Patient: DIANE SALMERON Age: 53 years Sex: Male : 1970 Associated Diagnoses: None Author: Alice Christina RN Findings Nursing Data Vital Signs : VITAL SIGNS SECTION 03/03/2023 21:30 EDT Early Warning Score 2.00 03/03/2023 21:30 EDT Temperature 99.1 DegF Temperature Route Oral Pulse Rate 103 bpm H Respiratory Rate 18 br/min Systolic Blood Pressure 139 mm Hg H Diastolic Blood Pressure 79 mm Hg Blood pressure sites Arm, right Mean Arterial Pressure 99 mm Hg Pulse Pressure 60 mm Hg Oxygen Saturation 97 % Mode of Delivery (Oxygen) Room air . Narrative/Incidental Patient is alert and oriented x4, pleasant and cooperative with care. Forgetful/confused at times. CIWA score 1 d/t mild shakiness. Lungs CTA/dim bilaterally, denies SOB/CP. +BSx4. Abdomen SNT. Incontinent of bowel and bladder. LBM 10/15. Voiding CYU via primofit. OOB one assist with cane or walker, gait unsteady as patient is weak. Call whitten and belongings are within reach, bed in lowest locked position.. Discharge Information Rehabilitation Discharge : Rehab Discharge Index 03/03/2023 9:02 EDT Comments on treatment indicated 53-year-old male with history of alcohol use disorder, multiple falls, presenting from group home with confusion. WBAT, fall risk. F/u PT for continued gait training, transfer training, balance, ther ex, ther act. Rec: Rehab Walker: distance 20-50 Distance pt will ambulate 300ft with RW Full chart review completed Yes Hospital course Hospital course Other findings Other findings Plan of care PT Gait training, Transfer training, Therapeutic exercise, Functional Activities, Balance training, Neuromuscular education * Ca GOMEZ, Lorena Nicole: PERFORM Event Display: Progress Note Hospital Authored Date: Patient: ??DIANE SALMERON ? Age:??53 Years?Sex:??Male?:??1970?? Subjective Seen and examined today Hospital course reviewed ?? Not in withdrawal any more Review of Systems Constitutional: No fever or chills, c/o generalized weakness ENT: No sore throat or nasal congestion. Respiratory: No shortness of breath or cough??. Cardiovascular: No chest pain or??palpitation. Gastrointestinal: No nausea, vomiting or diarrhea. Skin: No rash or lesion Neurology: No speech problem no vision problem no focal weakness, no dizziness. Psychiatric: Cooperative, normal mood and affect Objective ?? Physical Exam Awake, alert, oriented Lungs: Clear to auscultation bilateral, no wheezing no rales Heart: Regular rate and rhythm, no murmur, no rub or gallop Abdomen: Soft, nontender, nondistended; Bowel sounds present Extremity: No edema cyanosis clubbing Neurological: No focal deficit Psychiatric: Normal mood and affect Assessment/Plan Assessment:??53 y/o??male with h/o??Alcohol use disorder, multiple falls who presented to the ED from group home with altered mental status, altered gait, progressive weakness, diarrhea and was admitted for likely alcohol withdrawal and AMS workup. ? Alcohol withdrawal (F10.939): ??Was on Librium in group home, received phenobarbital in ED. Not scoring now ?? Will not need CIWA any more (> 5 days ) Plan: Will??d/c??CIWA protocol?Continue MVI, thiamine and folic acid repletion. ??Continue electrolyte repletion. ??Continue IVF at 100 cc/hr. ? Hypokalemia (E87.6): ??K 2.8 this morning. repleted Labs was not checked today Will check lab tomorrow ?KCl 40 mEq IV ordered. ? Hypomagnesemia (E83.42):? Correcetd again, not checked today Will check tomorrow ? Alcoholic ketoacidosis (E87.29): . ? Hypoglycemia (E16.2): ??Alcohol/starvation ketoacidosis. ??Improved with IV fluids. ??Encourage oral intake of food and fluids. ? Edema of right upper extremity (R60.0): DVT was ruled out ? VTE PPX: SQ Lovenox ?? Disp: PT recommended rehab Will be challenge as patient is incarcerated ? Discharge Planning:? Note * Flower Pollack LPN: PERFORM Event Display: Discharge/Transfer Note Hospital Authored Date: [id number] Nursing Discharge Note Entered On: 03/04/2023 18:41 EDT Performed On: 03/04/2023 18:38 EDT by Flower Pollack LPN Nursing Discharge Note 2 Discharge Time : 03/04/2023 19:15 EDT Flower Pollack LPN - 03/04/2023 19:15 EDT Discharge Level of Care at Discharge : Correction Fac/Police/Intermediate Patient Left Unit Via : Wheelchair Patient Accompanied Off Unit with : Responsible adult, Other: information assurance officer DC Instructions Provided & Signed by Pt : Unable Patient Understands D/C Instructions : Yes Patient Instructions Discharge Signed : Yes Discharge Comments : pt left unit via wheelchair escort by science and operations officer. IV access removed.DCD intact. D/C paperwork reviewed with pt, unable to sign. Paperwork signed by two nurses. Did Pt have Specialty Bed or Wound Vac : No Flower Pollack LPN - 03/04/2023 18:38 EDT * Ca GOMEZ, Lorena Nicole: PERFORM Event Display: Discharge/Transfer Note Hospital Authored Date: Patient: ??DIANE SALMERON ? Age:??53 Years?Sex:??Male?:??1970?? Patient Information Discharge Location: 4 Primary Care Physician: Johan Bucio MD Admit Date/Time: 02/26/23 15:06 Discharge Disposition Discharge Disposition: ?? Discharge Diagnosis Hypokalemia (E87.6) Hypomagnesemia (E83.42) Alcohol withdrawal (F10.939) Alcoholic ketoacidosis (E87.29) Edema of right upper extremity (R60.0) Hypoglycemia (E16.2) ?? _ Discharge Medications Folic Acid (folic acid 1 mg oral tablet)?1?Milligram?By Mouth?Daily Magnesium Oxide (magnesium oxide 400 mg oral tablet)?400?Milligram?By Mouth?2 times a day?for 7?Days Multivitamin With Minerals (multivitamin with minerals Antioxidant Multiple Vitamins and Minerals oral tablet)?2?tab(s)?By Mouth?Daily Potassium Chloride (Potassium Chloride Packet)?40?Milliequivalent?By Mouth?Daily?for5?Days Pyridoxine (Pyridoxine Tablet)?50?Milligram?By Mouth?Daily Senna (senna 187 mg oral tablet)?1?tab(s)?8.6?Milligram?By Mouth?2 times a day?as needed?Constipation Thiamine (Vitamin B1 100 mg oral tablet)?100?Milligram?1?tablet?By Mouth?Daily ? Allergies Allergies ?(Active and Proposed Allergies Only) NKA? (Severity: Unknown severity, Onset: Unknown) ? Hospital Course 53 y/o male with h/o Alcohol use disorder, multiple falls who presented to the ED from group home with altered mental status, altered gait, progressive weakness, diarrhea and was admitted for likely alcohol withdrawal and AMS workup. ? Alcohol withdrawal (F10.939): ??Was on Librium in group home, received phenobarbital in ED. Not scoring now ?? He is being discharged back to group home ?? Will not need CIWA any more (> 5 days ) ?? Plan: ??Continue MVI, thiamine and folic acid repletion. ??Continue electrolyte repletion. ??Continue IVF at 100 cc/hr. ? Hypokalemia (E87.6): Corrected Mg low: received 2 g mg IV??sulfate in??am Will give 2 gram more now prior to discharge ? Alcoholic ketoacidosis (E87.29): . ?Resolved ?? Hypoglycemia (E16.2): ??Alcohol/starvation ketoacidosis. ??Improved with IV fluids. ??Encourage oral intake of food and fluids. ? Edema of right upper extremity (R60.0): DVT was ruled out ? Objective Vital Signs?? Temperature: 98.9 DegF (03/04/23 13:56:00) Temperature Route: Oral (03/04/23 13:56:00) Pulse Rate:??97 bpm??High (03/04/23 13:56:00) Respiratory Rate: 16 br/min (03/04/23 13:56:00) Systolic Blood Pressure:??146 mm Hg??High (03/04/23 13:56:00) Diastolic Blood Pressure:??89 mm Hg??High (03/04/23 13:56:00) Blood pressure sites: Arm, right (03/04/23 13:56:00) Mean Arterial Pressure: 108 mm Hg (03/04/23 13:56:00) Pulse Pressure: 57 mm Hg (03/04/23 13:56:00) Oxygen Saturation: 98 % (03/04/23 13:56:00) Mode of Delivery (Oxygen): Room air (03/04/23 13:56:00) Early Warning Score: 1 (03/04/23 13:57:12) ? . Physical Exam Awake, alert, oriented Lungs: Clear to auscultation bilateral, no wheezing no rales Heart: Regular rate and rhythm, no murmur, no rub or gallop Abdomen: Soft, nontender, nondistended; Bowel sounds present Extremity: No edema cyanosis clubbing Neurological: No focal deficit Psychiatric: Normal mood and affect Pending Results Magnesium Level ordered on 03/04/2023 Patient Education Titles Discharge Instructions for Hypokalemia?? Alcohol Withdrawal?? Follow-Up Appointments Added Follow Up ?Time Frame ?Comments Lesser Johan GOMEZ?Within one week Patient Instructions ?? - Admitted due to alcohol withdrawal, managed well and out of withdrawal window - Low electrolytes, will continue some supplementation after discharge - Discharged back to group home in stable condition ?? Post Discharge Care Diet: ??Regular Diet ?? Discharge ?03/02/23 9:42:00 EDT Discharge Prescriptions ?ePrescribed, 03/02/23 9:42:00 EDT Home Health Face to Face ^HomeHealthFTF Results Discharge Labs BLOOD COUNT & DIFF WBC 8.7 k/mm3 ()?? 03/04/2023 00:16 RBC 3.12 m/mm3 (Low)?? 03/04/2023 00:16 Hgb 10.9 Gm/dL (Low)?? 03/04/2023 00:16 Hct 30.7 % (Low)?? 03/04/2023 00:16 MCV 98.4 femtoliters (High)?? 03/04/2023 00:16 MCH 34.9 pg (High)?? 03/04/2023 00:16 MCHC 35.5 g/dL ()?? 03/04/2023 00:16 Platelet Count 244 k/mm3 ()?? 03/04/2023 00:16 RDW-SD 47.0 femtoliters (High)?? 03/04/2023 00:16 MPV 10.5 femtoliters ()?? 03/04/2023 00:16 Nucleated RBC (Automated) 0.0 #/100 WBC'S ()?? 03/04/2023 00:16 Abs. NRBC 0.0 k/mm3 ()?? 03/04/2023 00:16 Abs. Neut 4.5 k/mm3 ()?? 03/04/2023 00:16 Abs. Lymph 1.6 k/mm3 ()?? 03/04/2023 00:16 Abs. [place] 2.5 k/mm3 (High)?? 03/04/2023 00:16 Abs. Eo 0.0 k/mm3 ()?? 03/04/2023 00:16 Abs. Baso 0.0 k/mm3 ()?? 03/04/2023 00:16 Neut % 51.4 % ()?? 03/04/2023 00:16 Lymph % 18.3 % ()?? 03/04/2023 00:16 [place] % 28.9 % (High)?? 03/04/2023 00:16 Eos % 0.5 % ()?? 03/04/2023 00:16 Baso % 0.3 % ()?? 03/04/2023 00:16 Imm Gran 0.6 % ()?? 03/04/2023 00:16 Abs. Imm Gran 0.1 k/mm3 ()?? 03/04/2023 00:16 ?? BLOOD GAS Specimen Type - Blood Gas Test not performed, specimen clotted ()?? 02/26/2023 13:20 pH, Venous Test not performed, specimen clotted ()?? 02/26/2023 13:20 pCO2, Venous Test not performed, specimen clotted mm Hg ()?? 02/26/2023 13:20 pO2, Venous Test not performed, specimen clotted mm Hg ()?? 02/26/2023 13:20 Bicarbonate, Estimated(Venous) Test not performed, specimen clotted mmol/L ()?? 02/26/2023 13:20 Percent O2 (FIO2) Test not performed, specimen clotted ()?? 02/26/2023 13:20 ?? CARDIAC Nt-Probnp 287 pg/mL (High)?? 02/26/2023 10:31 ? CHEM GENERAL Sodium 132 mmol/L (Low)?? 03/04/2023 00:16 Potassium 3.8 mmol/L ()?? 03/04/2023 00:16 Chloride 94 mmol/L (Low)?? 03/04/2023 00:16 Bicarbonate Level 25 mmol/L ()?? 03/04/2023 00:16 Anion Gap 13 ()?? 03/04/2023 00:16 Glucose Level 103 mg/dL (High)?? 03/04/2023 00:16 Glucose, POC 96 mg/dL ()?? 03/04/2023 11:58 BUN 7 mg/dL ()?? 03/04/2023 00:16 Creatinine-Blood 0.7 mg/dL ()?? 03/04/2023 00:16 Estimated GFR Creatinine 114 ML/MIN/1.73 M2 ()?? 03/04/2023 00:16 Calcium 8.1 mg/dL (Low)?? 03/02/2023 08:00 Calcium, Ionized pH Corrected ACTUAL MEASURED IONIZED CALCIUM IS 0.94 MMOL/L mmol/L ()?? 02/26/2023 10:31 Phosphorus 3.0 mg/dL ()?? 03/01/2023 05:04 Magnesium 1.0 mg/dL (Low)?? 03/04/2023 00:16 Protein, Total 5.8 Gm/dL (Low)?? 03/02/2023 08:00 Albumin 3.4 Gm/dL ()?? 03/02/2023 08:00 AG Ratio 1.4 ()?? 03/02/2023 08:00 Alkaline Phosphatase 75 units/L ()?? 03/02/2023 08:00 Lipase 68 units/L (High)?? 02/26/2023 10:31 AST (SGOT) 36 units/L ()?? 03/02/2023 08:00 ALT (SGPT) 22 units/L ()?? 03/02/2023 08:00 Bilirubin, Total 1.1 mg/dL ()?? 03/02/2023 08:00 Vitamin B12 Level 736 pg/mL ()?? 02/28/2023 04:00 Folic Acid Level 6.3 ng/mL ()?? 02/28/2023 04:00 Lactate 1.8 mmol/L ()?? 02/26/2023 10:31 Iron Level 20 mcg/dL (Low)?? 02/28/2023 04:00 Iron Binding Capacity, Unsaturated 239 mcg/dL ()?? 02/28/2023 04:00 Iron Binding Capacity, Estimated Total 259 mcg/dL ()?? 02/28/2023 04:00 % Iron Saturation 8 % (Low)?? 02/28/2023 04:00 Ferritin Level 1007 ng/mL (High)?? 02/28/2023 04:00 ?? COAG INR 1.2 (High)?? 02/26/2023 10:31 Protime (PT) 12.2 seconds (High)?? 02/26/2023 10:31 APTT 25.0 seconds ()?? 02/26/2023 10:31 ? ENDOCRINE/TUMOR MARKER TSH 0.75 uIU/mL ()?? 02/26/2023 10:31 ? MISC. CHEMISTRY Thiamine Level 125.0 ()?? 02/26/2023 13:20 25 OH-Vitamin D Level 11.5 ng/mL (Low)?? 02/26/2023 10:31 Ammonia, Venous 17 ??mole/L ()?? 02/26/2023 10:31 Hold Gel Top SPECIMEN DISCARDED AFTER 1 WEEK ()?? 03/04/2023 00:16 ?? SEROLOGY INF DISEASE HIV 4th Generation Ab-Ag Result NEGATIVE (N)?? 02/26/2023 10:31 ? TOXICOLOGY/TDM Ethanol, Serum or Plasma NONE DETECTED mg/dL ()?? 02/26/2023 10:31 Salicylate Level <0.3 mg/dL (Low)?? 02/26/2023 10:31 Barbiturate Screen, Urine NONE DETECTED ()?? 02/26/2023 13:30 Cannabinoid Screen, Urine NONE DETECTED ()?? 02/26/2023 13:30 Cocaine Metabolite Screen, Urine NONE DETECTED ()?? 02/26/2023 13:30 Benzodiazepine Screen, Urine POSITIVE (Abnormal)?? 02/26/2023 13:30 Amphetamine Screen, Urine NONE DETECTED ()?? 02/26/2023 13:30 Opiate Screen, Urine NONE DETECTED ()?? 02/26/2023 13:30 Phenobarb Level <2.4 mg/L (Low)?? 02/26/2023 13:20 ? UA/URINALYSIS Appear/Color, Urine YELLOW ()?? 02/26/2023 13:30 Specific [place], Urine 1.019 ()?? 02/26/2023 13:30 pH, Urine 6.5 ()?? 02/26/2023 13:30 Albumin, Urine 2+ (Abnormal)?? 02/26/2023 13:30 Glucose, Urine NEGATIVE ()?? 02/26/2023 13:30 Ketones, Urine 2+ (Abnormal)?? 02/26/2023 13:30 Bilirubin, Urine NEGATIVE ()?? 02/26/2023 13:30 Hemoglobin, Urine TRACE (Abnormal)?? 02/26/2023 13:30 Nitrite, Urine NEGATIVE ()?? 02/26/2023 13:30 Leukocyte, Urine NEGATIVE ()?? 02/26/2023 13:30 Urobilinogen 2 mg/dL (Abnormal)?? 02/26/2023 13:30 WBC's, Urine 2 /HPF ()?? 02/26/2023 13:30 RBC's, Urine 2 /HPF ()?? 02/26/2023 13:30 Bacteria SLIGHT HPF (Abnormal)?? 02/26/2023 13:30 Squamous Epith <1 /HPF ()?? 02/26/2023 13:30 Hyaline Cast 4 LPF (High)?? 02/26/2023 13:30 Mucus SLIGHT /LPF ()?? 02/26/2023 13:30 Hold Urine Culture Testing available 48 hours from time of collection. ()?? 02/26/2023 13:30 ?? URINE OTHER Est Creatinine Clearance 116.19 mL/min ()?? 03/04/2023 01:35 ? VIROLOGY COVID-19 by RT-PCR NEGATIVE ()?? 02/26/2023 10:22 ? Microbiology ?? COVID-19 (Novel Coronavirus), Rapid PCR?? Completed?? Source: Nasal Body Site: Nose Collected Dt/Tm: 02/26/2023 10:22 Last Updated Dt/Tm: 02/26/2023 13:10 ? 35 minutes spent on discharge * Flower Pollack LPN: PERFORM Event Display: Patient Education/Instruction Authored Date: [id number] Inpatient Adult Discharge Instructions [place] [id number] Name: DIANE SALMERON : 1970 Visit: 02/26/2023 15:06:00 Current Date: 03/04/2023 17:21 Account: [id number] Inpatient Adult Discharge Instructions We would like to thank you for allowing us to assist you with your healthcare needs. The following includes patient education materials and information regarding your injury/illness. Our entire staffstrives to provide an excellent experience for our patients and their families. PLEASE ENSURE YOU FOLLOW-UP PER THE INSTRUCTIONS BELOW! ?? YOUR OPINION IS IMPORTANT TO US! Please complete the survey you may receive by mail or email. Your feedback will be used to make improvements to the healthcare experiences of our patients and their families. Surveys are administered by [employer] ?? If further treatment with your primary care physician or another doctor is recommended, it is important for you to keep the appointment. Call your primary care physician or return to the Emergency Department immediately if your condition worsens, fails to improve, or new symptoms develop. If you need to find a doctor, you can call [facility] Web and Rank Link for a referral at [phone] or toll free at [phone] or log in to [email or web address].. ?? [facility], in keeping with [facility] guidance, no longer requires face masks for staff, patientsor visitors in most situations. Similiar to time spent indoors at other locations, there is the chance that you were exposed to repiratory viruses during your time with us (such as flu or COVID-19). If you develop symptoms concerning for a viral respiratory infection, please seek testing (and treatment if indicated) from your medical provider or home test kit. ?? You can view and manage your care through the patient portal or by using a health care vitaliy of your choosing. [employer] is a website that allows you to securely view your medical information including your hospital discharge summary, office visit summaries, medications and follow-up visits. You can also request appointments, renew medications, and request access to your medical information using a health care vitaliy of your choosing, or just ask a question. You can enroll at [email or web address] or register during your next office visit. You have been discharged from [facility], Patient Care Unit: S64. If you have any questions regarding these instructions after you leave, please call us and we will be happy to assist you. [facility] Your Care Team Attending Physician Lorena Penaloza MD Discharging Providers Lorena Penaloza MD Reason for Admission coming from group home - per staff report - pt is in severe alcohol withndrawal, AMS & reporting BLE weakness & neck pain. making delerious statements appears very jaundice Your Diagnosis Alcoholic ketoacidosis Hypoglycemia Alcohol withdrawal Hypokalemia Hypomagnesemia Edema of right upper extremity Tests Performed Below is a partial list of the tests performed during your hospitalization. You may have had other tests and procedures not included in this list. Please discuss all test results with your provider. 25OH VITAMIN D Alcohol Level Ammonia Venous Amphetamine Urine Screen Aspirin Level Barbiturate Urine Screen Basic Metabolic Panel Benzodiazepine Urine Screen Blood Gas Venous BUN Calcium Ionized Cannabinoid Urine Screen CBC CBC w/ Differential Cocaine Urine Screen Comprehensive Metabolic Panel COVID-19 (Novel Coronavirus), Rapid PCR CREATININE Electrolytes FERRITIN FOLIC ACID GLUCOSE GLUCOSE POC H + H HIV Ab-Ag 4th Generation HOLD GEL TUBE INR IRON & TIBC Lactate Level Lipase Magnesium Level Opiate Screen Urine PHENOBARB Phosphorus Level Potassium Level ProBNP PTT Thiamine Level TSH with T4 Reflex (Adults Only) Urinalysis w/hold for Urine Culture VITAMIN B12 CT Cervical Spine W/O Contrast CT Head/Brain W/O Contrast US Doppler Ext Upper Venous Right XR Chest 2 Views Frontal and Lat XR Wrist Comp Min 3 Views Right Primary Care Provider Johan Bucio MD Advance Directive Health Care Proxy on File No Patient refuses to discuss Discharge Vitals Temperature: 98.2 DegF Height: 180 cm Pulse Rate: 64 bpm Weight: 65.8 kg Respiratory Rate: 18 br/min Body Mass Index: 20.31 kg/m2 Systolic Blood Pressure:??144 mm Hg??High Body surface area: 1.81 Diastolic Blood Pressure: 80 mm Hg ?? Oxygen Saturation: 98 % ?? Studies Pending All tests and labs ordered during this hospital stay have been completed unless listed below. Please discuss all pending results with your provider listed above in these instructions. ?? No incomplete studies found What to do next Instructions From Your Doctor ?? - Admitted due to alcohol withdrawal, managed well and out of withdrawal window - Low electrolytes, will continue some supplementation after discharge - Discharged back to group home in stable condition ?? Discharge Orders Diet:??Regular Diet You Need to Schedule the Following Appointments Follow Up with??Johan Bucio MD When:??Within Within one week Where: ?? Discharge Medications DIANE SALMERON :1970 Visit Date:02/26/2023 Medications: Please continue your medications until treatment is completed or stopped by your provider. Medications not listed below should be discontinued. Discuss any questions related to medications with your provider. What How Much When Instructions Next Dose New Folic Acid (folic acid 1 mg oral tablet) 1 Milligram Oral Daily 03/05/23 8:00 AM New Magnesium Oxide (magnesium oxide 400 mg oral tablet) 400 Milligram Oral Twice a day Duration: 7 Days 03/04/23 8:00 PM New Potassium Chloride (Potassium Chloride Packet) 40 Milliequivalent Oral Daily Duration: 5 Days 03/05/23 8:00 AM New Pyridoxine (Pyridoxine Tablet) 50 Milligram Oral Daily 03/05/23 8:00 AM New Senna (senna 187 mg oral tablet) 1 tab(s) Oral Twice a day as needed for Constipation as needed Unchanged Multivitamin With Minerals (multivitamin with minerals Antioxidant Multiple Vitamins and Minerals oral tablet) 2 tab(s) Oral Daily 03/05/23 8:00 AM Unchanged Thiamine (Vitamin B1 100 mg oral tablet) 1 tab(s) Oral Daily 03/05/23 8:00 AM ?? What How Much When Comments Stop Taking Chlordiazepoxide (chlordiazePOXIDE 25 mg oral capsule) 2 capsule Oral 3 times a day (). Decrease to 2 capsule BID - then 1 capsule BID - then 1 capsule QD - ?? Stop Taking Durable Medical Equipment (Crutches) See instructions ambulate with crutches ?? Stop Taking Durable Medical Equipment (Knee Immobilizer) See instructions for ambulation ?? Stop Taking Naproxen (Naprosyn 500 mg oral tablet) 1 tab(s) Oral Twice a day Stop Taking Oxycodone / Acetaminophen (Percocet-5/ 325 325 mg-5 mg oral tablet) 1 tab(s) Oral Every 6 hours as needed for Pain , Moderate Duration: 3 Days Test Results Below is a partial list of the most recent Laboratory test results done prior to this discharge. You may have had other tests and procedures not included in this list. Please discuss all test resultswith your provider. Est Creatinine Clearance - 116.19 mL/min (03/04/2023) 25OH VITAMIN D (02/26/2023) ???25 OH-Vitamin D Level - 11.5 ng/mL Alcohol Level (02/26/2023) ???Ethanol, Serum or Plasma - NONE DETECTED Ammonia Venous (02/26/2023) ???Ammonia, Venous - 17 ??mole/L Amphetamine Urine Screen (02/26/2023) ???Amphetamine Screen, Urine - NONE DETECTED Aspirin Level (02/26/2023) ? ?Salicylate Level - <0.3 mg/dL Barbiturate Urine Screen (02/26/2023) ???Barbiturate Screen, Urine - NONE DETECTED Basic Metabolic Panel (03/01/2023) ???Sodium - 130 mmol/L???Potassium - 2.8 mmol/L???Chloride - 91 mmol/L???Bicarbonate Level - 22 mmol/L???Anion Gap - 17???Glucose Level - 94 mg/dL???BUN - 4 mg/dL???Creatinine-Blood - 0.4 mg/dL???Estimated GFR Creatinine - 128 ML/MIN/1.73 M2???Calcium - 8.0 mg/dL Benzodiazepine Urine Screen (02/26/2023) ???Benzodiazepine Screen, Urine - POSITIVE Blood Gas Venous (02/26/2023) ???Specimen Type - Blood Gas - Test not performed, specimen clotted???pH, Venous - Test not performed, specimen clotted???pCO2, Venous - Test not performed, specimen clotted???pO2, Venous - Test not performed, specimen clotted???Bicarbonate, Estimated(Venous) - Test not performed, specimen clotted???Percent O2 (FIO2) - Test not performed, specimen clotted BUN (03/04/2023) ???BUN - 7 mg/dL Calcium Ionized (02/26/2023) ???Calcium, Ionized pH Corrected - ACTUAL MEASURED IONIZED CALCIUM IS 0.94 MMOL/L Cannabinoid Urine Screen (02/26/2023) ???Cannabinoid Screen, Urine - NONE DETECTED CBC (03/01/2023) ???WBC - 9.6 k/mm3???RBC - 3.13 m/mm3???Hgb - 10.8 Gm/dL???Hct - 30.7 %???MCV - 98.1 femtoliters???MCH - 34.5 pg???MCHC - 35.2 g/dL???Platelet Count - 133 k/mm3???RDW-SD - 47.0 femtoliters???MPV - 11.6 femtoliters???Nucleated RBC (Automated) - 0.0 #/100 WBC'S???Abs. NRBC - 0.0 k/mm3 CBC w/ Differential (03/04/2023) ???WBC - 8.7 k/mm3???RBC - 3.12 m/mm3???Hgb - 10.9 Gm/dL???Hct - 30.7 %???MCV - 98.4 femtoliters???MCH - 34.9 pg???MCHC - 35.5 g/dL???Platelet Count - 244 k/mm3???RDW-SD - 47.0 femtoliters???MPV - 10.5 femtoliters???Nucleated RBC (Automated) - 0.0 #/100 WBC'S???Abs. NRBC - 0.0 k/mm3???Abs. Neut - 4.5 k/mm3???Abs. Lymph - 1.6 k/mm3???Abs. [place] - 2.5 k/mm3???Abs. Eo - 0.0 k/mm3???Abs. Baso - 0.0 k/mm3???Neut % - 51.4 %???Lymph % - 18.3 %???[place] % - 28.9 %???Eos % - 0.5 %???Baso % - 0.3 %???Imm Gran - 0.6 %???Abs. Imm Gran - 0.1 k/mm3 Cocaine Urine Screen (02/26/2023) ???Cocaine Metabolite Screen, Urine - NONE DETECTED Comprehensive Metabolic Panel (03/02/2023) ???Sodium - 132 mmol/L???Potassium - 3.2 mmol/L???Chloride - 92 mmol/L???Bicarbonate Level - 23 mmol/L???Anion Gap - 17???Glucose Level - 79 mg/dL???BUN - 4 mg/dL???Creatinine-Blood - 0.5 mg/dL???Estimated GFR Creatinine - 122 ML/MIN/1.73 M2???Calcium - 8.1 mg/dL???Protein, Total - 5.8 Gm/dL???Album in - 3.4 Gm/dL???AG Ratio - 1.4???Alkaline Phosphatase - 75 units/L???AST (SGOT) - 36 units/L???ALT(SGPT) - 22 units/L???Bilirubin, Total - 1.1 mg/dL COVID-19 (Novel Coronavirus), Rapid PCR (02/26/2023) ???COVID-19 by RT-PCR - NEGATIVE CREATININE (03/04/2023) ???Creatinine-Blood - 0.7 mg/dL???Estimated GFR Creatinine - 114 ML/MIN/1.73 M2 Electrolytes (03/04/2023) ???Sodium - 132 mmol/L???Potassium - 3.8 mmol/L???Chloride - 94 mmol/L???Bicarbonate Level - 25 mmol/L???Anion Gap - 13 FERRITIN (02/28/2023) ???Ferritin Level - 1007 ng/mL FOLIC ACID (02/28/2023) ???Folic Acid Level - 6.3 ng/mL GLUCOSE (03/04/2023) ???Glucose Level - 103 mg/dL GLUCOSE POC (03/04/2023) ???Glucose, POC - 96 mg/dL H + H (02/28/2023) ???Hgb - 11.1 Gm/dL???Hct - 32.2 % HIV Ab-Ag 4th Generation (02/26/2023) ???HIV 4th Generation Ab-Ag Result - NEGATIVE HOLD GEL TUBE (03/04/2023) ???Hold Gel Top - SPECIMEN DISCARDED AFTER 1 WEEK INR (02/26/2023) ???INR - 1.2???Protime (PT) - 12.2 seconds IRON & TIBC (02/28/2023) ???Iron Level - 20 mcg/dL???Iron Binding Capacity, Unsaturated - 239 mcg/dL???Iron Binding Capacity, Estimated Total - 259 mcg/dL???% Iron Saturation - 8 % Lactate Level (02/26/2023) ???Lactate - 1.8 mmol/L Lipase (02/26/2023) ???Lipase - 68 units/L Magnesium Level (03/04/2023) ???Magnesium - 1.6 mg/dL Opiate Screen Urine (02/26/2023) ???Opiate Screen, Urine - NONE DETECTED PHENOBARB (02/26/2023) ? ?Phenobarb Level - <2.4 mg/L Phosphorus Level (03/01/2023) ???Phosphorus - 3.0 mg/dL Potassium Level (02/27/2023) ???Potassium - 2.6 mmol/L ProBNP (02/26/2023) ???Nt-Probnp - 287 pg/mL PTT (02/26/2023) ???APTT - 25.0 seconds Thiamine Level (02/26/2023) ???Thiamine Level - 125.0 TSH with T4 Reflex (Adults Only) (02/26/2023) ???TSH - 0.75 uIU/mL Urinalysis w/hold for Urine Culture (02/26/2023) ???Appear/Color, Urine - YELLOW???Specific [place], Urine - 1.019???pH, Urine - 6.5???Albumin, Urine - 2+???Glucose, Urine - NEGATIVE???Ketones, Urine - 2+???Bilirubin, Urine - NEGATIVE???Hemoglobin,Urine - TRACE???Nitrite, Urine - NEGATIVE???Leukocyte, Urine - NEGATIVE???Urobilinogen - 2 mg/dL???WBC's, Urine - 2 /HPF? ?RBC's, Urine - 2 /HPF? ?Bacteria - SLIGHT? ?Squamous Epith - <1 /HPF? ?Hyaline Cast - 4 LPF???Mucus - SLIGHT???Hold Urine Culture - Testing available 48 hours from time of collection. VITAMIN B12 (02/28/2023) ???Vitamin B12 Level - 736 pg/mL Allergies (NKA means No Known Allergies) NKA Problems No qualifying data available Education Materials Below is the list of Educational Leaflet Providered with your Discharge Instructions. Discharge Instructions for Hypokalemia?? Alcohol Withdrawal?? Valuables and Belongings I fully understand and agree that [facility] accepts no responsibility for all my personal property including clothing, toilet articles, radios, jewelry, dentures, hearing aids, rings, money, or any other property that is in my possession or is brought to me after admission. I understand certain valuables may be placed in a hospital safe for a short period of time. I understand that the hospital is not liable for loss or damage due to accident, fire, or other natural occurrence while said property is in the safe. I accept full responsibility for any personal property that I keep with me, and will not hold the hospital responsible in case of loss or disappearance. I acknowledge that i have been encouraged to send valuables and belongings home. ?? No Valuables/Belongings: No valuables/belongings present Review of Valuable and Belonging List: With patient, With witness Date for Pt to Sign Valuables/Belongings: 03/02/23 19:20:00 ?? Other Discharge Information ? Pulmonary Rehab Status?? Pulmonary Rehab Discharge Status?? Respiratory Rate: 18 br/min ? Common Emergency Awareness Tips IS IT A STROKE? Act FAST and Check for these signs: FACE Does the face look uneven? ARM Does one arm drift down? SPEECH Does their speech sound strange? TIME Call at any sign of stroke ?? Heart Attack Signs Chest discomfort: Most heart attacks involve discomfort in the center of the chest and lasts more than a few minutes, or goes away and comes back. It can feel like uncomfortable pressure, squeezing, fullness or pain. Discomfort in upper body: Symptoms can include pain or discomfort in one or both arms, back, neck, jaw or stomach. Shortness of breath: With or without discomfort. Other signs: Breaking out in a cold sweat, nausea, or lightheaded. Remember, MINUTES DO MATTER. If you experience any of these heart attack warning signs, call to get immediate medical attention! ?? Smoking can increase your chances of developing chronic health problems and can cause harmful effects to other family members in your house. If you smoke, you are strongly encouraged to quit. Please call [facility] Web and Rank Link at [phone] or [phone] ([phone]) or log in to [email or web address] for referrals to smoking cessation programs. ?? 102 Suicide & Crisis Lifeline is available 07/12 if you or someone you know needs to find a reason to keep living. By calling 229 you'll be connected to a skilled, trained counselor at a crisis center in your area. INPATIENT DISCHARGE INSTRUCTIONS SIGNATURE PAGE DIANE SALMERON Location:[facility] Registration Date and Time:02/26/2023 15:06 EDT Primary Care Physician: Johan Bucio MD, Attending Physician: Ca GOMEZ, Lorena Nicole, I DIANE SALMERON, have received the above patient education materials/instructions and have verbalized understanding. If ambulance or transport services are being used I further acknowledge being given a choice of service. ?? If you need to contact me, please call me at this number: . Patient/Coloring Room Worker Name: Patient/Coloring Room Worker Signature: Relationship to Patient: Witness Name/Signature: Date: * Shaun GOMEZ, Vikas H: PERFORM Event Display: Discharge/Transfer Note Hospital Authored Date: [id number] Patient: ??DIANE SALMERON ? Age:??53 Years?Sex:??Male?:??1970?? Patient Information Discharge Location: W4 Primary Care Physician: Johan Bucio MD Admit Date/Time: 02/26/23 15:06 Discharge Disposition Discharge Disposition: Home: No Services Discharge Diagnosis Hypokalemia (E87.6) Hypomagnesemia (E83.42) Alcohol withdrawal (F10.939) Alcoholic ketoacidosis (E87.29) Edema of right upper extremity (R60.0) Hypoglycemia (E16.2) ?? _ Discharge Medications Folic Acid (folic acid 1 mg oral tablet)?1?Milligram?By Mouth?Daily Magnesium Oxide (magnesium oxide 400 mg oral tablet)?400?Milligram?By Mouth?2 times a day?for 7?Days Multivitamin With Minerals (multivitamin with minerals Antioxidant Multiple Vitamins and Minerals oral tablet)?2?tab(s)?By Mouth?Daily Potassium Chloride (Potassium Chloride Packet)?40?Milliequivalent?By Mouth?Daily?for5?Days Pyridoxine (Pyridoxine Tablet)?50?Milligram?By Mouth?Daily Senna (senna 187 mg oral tablet)?1?tab(s)?8.6?Milligram?By Mouth?2 times a day?as needed?Constipation Thiamine (Vitamin B1 100 mg oral tablet)?100?Milligram?1?tablet?By Mouth?Daily ? Hospital Course ? 53-year-old male with history of alcohol use disorder, multiple falls in setting of alcohol intoxication who presented to the ED from group home with altered mental status, altered gait, progressive weakness, diarrhea in setting of alcohol withdrawal. Managed successfully and discharged back to group home. ?? Alcohol withdrawal (F10.939):? Was on Librium in group home, received phenobarbital in ED. Not scoring CIWA last 24 hours Continue MVI, thiamine and folic acid repletion. ? Hypokalemia (E87.6):? 2/2 alcohol use, repleted in hospital and will be discharged on additional repletion at discharge ?? Hypomagnesemia (E83.42):? 2/2 alcohol use, repleted in hospital and will be discharged on additional repletion at discharge ?? Alcoholic ketoacidosis (E87.29):??. Hypoglycemia (E16.2):? Alcohol/starvation ketoacidosis. Improved with IV fluids. Demonstrated good??oral intake of food and fluids. ?? Edema of right upper extremity (R60.0):? XR negative for fx or dislocation. US??ruled out DVT. ? Objective Measurements?? Height: 180 cm (03/02/23) Weight: 65.8 kg (02/28/23) Dry Weight: 65.8 kg (02/28/23) Body Mass Index: 20.31 kg/m2 (02/28/23) ? Vital Signs?? Temperature: 97.9 DegF (03/02/23 07:00:00) Temperature Route: Oral (03/02/23 07:00:00) Pulse Rate:??108 bpm??High (03/02/23 07:00:00) Respiratory Rate: 18 br/min (03/02/23 07:00:00) Systolic Blood Pressure:??148 mm Hg??High (03/02/23 07:00:00) Diastolic Blood Pressure: 81 mm Hg (03/02/23 07:00:00) Blood pressure sites: Arm, right (03/02/23 07:00:00) Mean Arterial Pressure: 91 mm Hg (03/02/23 03:11:00) Pulse Pressure: 67 mm Hg (03/02/23 07:00:00) Oxygen Saturation: 97 % (03/02/23 07:00:00) Mode of Delivery (Oxygen): Room air (03/02/23 07:00:00) Early Warning Score: 4 (03/02/23 09:03:26) ? . Physical Exam ?? Constitutional: Alert, in no distress. Mental Status: Oriented to person, place and time Respiratory: Clear to auscultation. No wheezing, rales or rhonchi. Cardiovascular: Regular rate and rhythm, no murmurs, rubs or gallops. Abdomen: Soft, non-tender, non-distended.??Normal bowel sounds. Skin: No rashes or lesions. Psychiatric: Normal mood and affect. Extremities: R wrist swelling due to fall, just strain no internal fracture ?? Pending Results Thiamine Level ordered on 02/26/2023 Patient Education Titles Discharge Instructions for Hypokalemia?? Alcohol Withdrawal?? Follow-Up Appointments Added Follow Up ?Time Frame ?Comments Lesser Johan GOMEZ?Within one week Patient Instructions ?? - Admitted due to alcohol withdrawal, managed well and out of withdrawal window - Low electrolytes, will continue some supplementation after discharge - Discharged back to group home in stable condition ?? Post Discharge Care Diet: ??Regular Diet ?? Discharge ?03/02/23 9:42:00 EDT Discharge Prescriptions ?ePrescribed, 03/02/23 9:42:00 EDT Home Health Face to Face ^HomeHealthFTF Results Discharge Labs BLOOD COUNT & DIFF WBC 8.4 k/mm3 ()?? 03/02/2023 08:00 RBC 3.19 m/mm3 (Low)?? 03/02/2023 08:00 Hgb 11.2 Gm/dL (Low)?? 03/02/2023 08:00 Hct 31.6 % (Low)?? 03/02/2023 08:00 MCV 99.1 femtoliters (High)?? 03/02/2023 08:00 MCH 35.1 pg (High)?? 03/02/2023 08:00 MCHC 35.4 g/dL ()?? 03/02/2023 08:00 Platelet Count 181 k/mm3 ()?? 03/02/2023 08:00 RDW-SD 46.8 femtoliters ()?? 03/02/2023 08:00 MPV 10.8 femtoliters ()?? 03/02/2023 08:00 Nucleated RBC (Automated) 0.0 #/100 WBC'S ()?? 03/02/2023 08:00 Abs. NRBC 0.0 k/mm3 ()?? 03/02/2023 08:00 Abs. Neut 4.7 k/mm3 ()?? 03/02/2023 08:00 Abs. Lymph 1.2 k/mm3 ()?? 03/02/2023 08:00 Abs. [place] 2.4 k/mm3 (High)?? 03/02/2023 08:00 Abs. Eo 0.0 k/mm3 ()?? 03/02/2023 08:00 Abs. Baso 0.0 k/mm3 ()?? 03/02/2023 08:00 Neut % 56.3 % ()?? 03/02/2023 08:00 Lymph % 14.2 % (Low)?? 03/02/2023 08:00 [place] % 28.5 % (High)?? 03/02/2023 08:00 Eos % 0.2 % ()?? 03/02/2023 08:00 Baso % 0.2 % ()?? 03/02/2023 08:00 Imm Gran 0.6 % ()?? 03/02/2023 08:00 Abs. Imm Gran 0.1 k/mm3 ()?? 03/02/2023 08:00 ?? BLOOD GAS Specimen Type - Blood Gas Test not performed, specimen clotted ()?? 02/26/2023 13:20 pH, Venous Test not performed, specimen clotted ()?? 02/26/2023 13:20 pCO2, Venous Test not performed, specimen clotted mm Hg ()?? 02/26/2023 13:20 pO2, Venous Test not performed, specimen clotted mm Hg ()?? 02/26/2023 13:20 Bicarbonate, Estimated(Venous) Test not performed, specimen clotted mmol/L ()?? 02/26/2023 13:20 Percent O2 (FIO2) Test not performed, specimen clotted ()?? 02/26/2023 13:20 ?? CARDIAC Nt-Probnp 287 pg/mL (High)?? 02/26/2023 10:31 ? CHEM GENERAL Sodium 132 mmol/L (Low)?? 03/02/2023 08:00 Potassium 3.2 mmol/L (Low)?? 03/02/2023 08:00 Chloride 92 mmol/L (Low)?? 03/02/2023 08:00 Bicarbonate Level 23 mmol/L ()?? 03/02/2023 08:00 Anion Gap 17 ()?? 03/02/2023 08:00 Glucose Level 79 mg/dL ()?? 03/02/2023 08:00 Glucose, POC 78 mg/dL ()?? 03/02/2023 07:24 BUN 4 mg/dL (Low)?? 03/02/2023 08:00 Creatinine-Blood 0.5 mg/dL (Low)?? 03/02/2023 08:00 Estimated GFR Creatinine 122 ML/MIN/1.73 M2 ()?? 03/02/2023 08:00 Calcium 8.1 mg/dL (Low)?? 03/02/2023 08:00 Calcium, Ionized pH Corrected ACTUAL MEASURED IONIZED CALCIUM IS 0.94 MMOL/L mmol/L ()?? 02/26/2023 10:31 Phosphorus 3.0 mg/dL ()?? 03/01/2023 05:04 Magnesium 1.4 mg/dL (Low)?? 03/01/2023 05:04 Protein, Total 5.8 Gm/dL (Low)?? 03/02/2023 08:00 Albumin 3.4 Gm/dL ()?? 03/02/2023 08:00 AG Ratio 1.4 ()?? 03/02/2023 08:00 Alkaline Phosphatase 75 units/L ()?? 03/02/2023 08:00 Lipase 68 units/L (High)?? 02/26/2023 10:31 AST (SGOT) 36 units/L ()?? 03/02/2023 08:00 ALT (SGPT) 22 units/L ()?? 03/02/2023 08:00 Bilirubin, Total 1.1 mg/dL ()?? 03/02/2023 08:00 Vitamin B12 Level 736 pg/mL ()?? 02/28/2023 04:00 Folic Acid Level 6.3 ng/mL ()?? 02/28/2023 04:00 Lactate 1.8 mmol/L ()?? 02/26/2023 10:31 Iron Level 20 mcg/dL (Low)?? 02/28/2023 04:00 Iron Binding Capacity, Unsaturated 239 mcg/dL ()?? 02/28/2023 04:00 Iron Binding Capacity, Estimated Total 259 mcg/dL ()?? 02/28/2023 04:00 % Iron Saturation 8 % (Low)?? 02/28/2023 04:00 Ferritin Level 1007 ng/mL (High)?? 02/28/2023 04:00 ?? COAG INR 1.2 (High)?? 02/26/2023 10:31 Protime (PT) 12.2 seconds (High)?? 02/26/2023 10:31 APTT 25.0 seconds ()?? 02/26/2023 10:31 ? ENDOCRINE/TUMOR MARKER TSH 0.75 uIU/mL ()?? 02/26/2023 10:31 ? MISC. CHEMISTRY 25 OH-Vitamin D Level 11.5 ng/mL (Low)?? 02/26/2023 10:31 Ammonia, Venous 17 ??mole/L ()?? 02/26/2023 10:31 ?? SEROLOGY INF DISEASE HIV 4th Generation Ab-Ag Result NEGATIVE (N)?? 02/26/2023 10:31 ? TOXICOLOGY/TDM Ethanol, Serum or Plasma NONE DETECTED mg/dL ()?? 02/26/2023 10:31 Salicylate Level <0.3 mg/dL (Low)?? 02/26/2023 10:31 Barbiturate Screen, Urine NONE DETECTED ()?? 02/26/2023 13:30 Cannabinoid Screen, Urine NONE DETECTED ()?? 02/26/2023 13:30 Cocaine Metabolite Screen, Urine NONE DETECTED ()?? 02/26/2023 13:30 Benzodiazepine Screen, Urine POSITIVE (Abnormal)?? 02/26/2023 13:30 Amphetamine Screen, Urine NONE DETECTED ()?? 02/26/2023 13:30 Opiate Screen, Urine NONE DETECTED ()?? 02/26/2023 13:30 Phenobarb Level <2.4 mg/L (Low)?? 02/26/2023 13:20 ? UA/URINALYSIS Appear/Color, Urine YELLOW ()?? 02/26/2023 13:30 Specific [place], Urine 1.019 ()?? 02/26/2023 13:30 pH, Urine 6.5 ()?? 02/26/2023 13:30 Albumin, Urine 2+ (Abnormal)?? 02/26/2023 13:30 Glucose, Urine NEGATIVE ()?? 02/26/2023 13:30 Ketones, Urine 2+ (Abnormal)?? 02/26/2023 13:30 Bilirubin, Urine NEGATIVE ()?? 02/26/2023 13:30 Hemoglobin, Urine TRACE (Abnormal)?? 02/26/2023 13:30 Nitrite, Urine NEGATIVE ()?? 02/26/2023 13:30 Leukocyte, Urine NEGATIVE ()?? 02/26/2023 13:30 Urobilinogen 2 mg/dL (Abnormal)?? 02/26/2023 13:30 WBC's, Urine 2 /HPF ()?? 02/26/2023 13:30 RBC's, Urine 2 /HPF ()?? 02/26/2023 13:30 Bacteria SLIGHT HPF (Abnormal)?? 02/26/2023 13:30 Squamous Epith <1 /HPF ()?? 02/26/2023 13:30 Hyaline Cast 4 LPF (High)?? 02/26/2023 13:30 Mucus SLIGHT /LPF ()?? 02/26/2023 13:30 Hold Urine Culture Testing available 48 hours from time of collection. ()?? 02/26/2023 13:30 ?? URINE OTHER Est Creatinine Clearance 162.67 mL/min ()?? 03/02/2023 09:03 ? VIROLOGY COVID-19 by RT-PCR NEGATIVE ()?? 02/26/2023 10:22 ? Microbiology ?? COVID-19 (Novel Coronavirus), Rapid PCR?? Completed?? Source: Nasal Body Site: Nose Collected Dt/Tm: 02/26/2023 10:22 Last Updated Dt/Tm: 02/26/2023 13:10 ? Imaging(s) ?CT Head/Brain W/O Contrast ?? 02/26/2023 10:29??by Rogers GOMEZ, [place] ?HEAD 1. No acute intracranial abnormality. 2. No skull fracture. ? CERVICAL SPINE: 1. There is no fracture. There is no focal bony lesion. 2. Normal alignment. ?? 3. Trace degenerative change. ?US Doppler Ext Upper Venous Right ?? 03/01/2023 19:19??by Moiz GOMEZ, Timbo [place] ?No evidence of venous thrombosis. ?Wrist Comp Min 3 Views Right ?? 03/01/2023 12:23??by Chas GOMEZ, Keshav V ? Soft tissue swelling, but no underlying acute bone abnormality. ? 42_ minutes spent on discharge * Shaun GOMEZ, Vikas H: PERFORM Event Display: Discharge/Transfer Note Hospital Authored Date: [id number] In the [place] [address] discharge lounge??received report that patient had tachycardia. ??Is sinus tachycardia, EKG unremarkable, heart rate 120s-130s.?? Patient is just deconditioned, no intervention needed. ??Remained medically ready for discharge.?? Intermediate staff??later stating??they are concerned about how deconditioned patient. ??They are requesting physical therapy evaluation. ??Patient is not a rehab candidate??due to being incarcerated.?? I escalated this to case management leadership. ??Furthermore they have had the patient??foot cuffed to the bed for the last 5 days,??now requesting PT grace luation is??very poor planning from group home staff. ??Patient is being??re bedded??to [place] [address], does not need telemetry, had sinus tachycardia * May Marks RN: PERFORM Event Display: Patient Education/Instruction Authored Date: [id number] Inpatient Adult Discharge Instructions [facility] [address] [place] [address] Name: DIANE SALMERON : 1970 Visit: 02/26/2023 15:06:00 Current Date: 03/02/2023 14:03 Account: [id number] Inpatient Adult Discharge Instructions We would like to thank you for allowing us to assist you with your healthcare needs. The following includes patient education materials and information regarding your injury/illness. Our entire staffstrives to provide an excellent experience for our patients and their families. PLEASE ENSURE YOU FOLLOW-UP PER THE INSTRUCTIONS BELOW! ?? YOUR OPINION IS IMPORTANT TO US! Please complete the survey you may receive by mail or email. Your feedback will be used to make improvements to the healthcare experiences of our patients and their families. Surveys are administered by [employer]. ?? If further treatment with your primary care physician or another doctor is recommended, it is important for you to keep the appointment. Call your primary care physician or return to the Emergency Department immediately if your condition worsens, fails to improve, or new symptoms develop. If you need to find a doctor, you can call [facility] for a referral at [phone] or toll free at [phone]) or log in to [email or web address] ?? [facility], in keeping with [facility] guidance, no longer requires face masks for staff, patientsor visitors in most situations. Similiar to time spent indoors at other locations, there is the chance that you were exposed to repiratory viruses during your time with us (such as flu or COVID-19). If you develop symptoms concerning for a viral respiratory infection, please seek testing (and treatment if indicated) from your medical provider or home test kit. ?? You can view and manage your care through the patient portal or by using a health care vitaliy of your choosing. [employer] is a website that allows you to securely view your medical information including your hospital discharge summary, office visit summaries, medications and follow-up visits. You can also request appointments, renew medications, and request access to your medical information using a health care vitaliy of your choosing, or just ask a question. You can enroll at [email or web address] or register during your next office visit. You have been discharged from [facility], Patient Care Unit: S3. If you have any questions regarding these instructions after you leave, please call us and we will be happy to assist you. [facility] Your Care Team Attending Physician Vikas Dunn MD Discharging Providers Vikas Dunn MD Reason for Admission coming from group home - per staff report - pt is in severe alcohol withndrawal, AMS & reporting BLE weakness & neck pain. making delerious statements appears very jaundice Your Diagnosis Alcoholic ketoacidosis Hypoglycemia Alcohol withdrawal Hypokalemia Hypomagnesemia Edema of right upper extremity Tests Performed Below is a partial list of the tests performed during your hospitalization. You may have had other tests and procedures not included in this list. Please discuss all test results with your provider. 25OH VITAMIN D Alcohol Level Ammonia Venous Amphetamine Urine Screen Aspirin Level Barbiturate Urine Screen Basic Metabolic Panel Benzodiazepine Urine Screen Blood Gas Venous BUN Calcium Ionized Cannabinoid Urine Screen CBC CBC w/ Differential Cocaine Urine Screen Comprehensive Metabolic Panel COVID-19 (Novel Coronavirus), Rapid PCR Creatinine Electrolytes FERRITIN FOLIC ACID Glucose Level GLUCOSE POC H + H HIV Ab-Ag 4th Generation INR IRON & TIBC Lactate Level Lipase Magnesium Level Opiate Screen Urine PHENOBARB Phosphorus Level Potassium Level ProBNP PTT TSH with T4 Reflex (Adults Only) Urinalysis w/hold for Urine Culture VITAMIN B12 CT Cervical Spine W/O Contrast CT Head/Brain W/O Contrast US Doppler Ext Upper Venous Right XR Chest 2 Views Frontal and Lat XR Wrist Comp Min 3 Views Right Primary Care Provider Johan Bucio MD Advance Directive Health Care Proxy on File No Patient refuses to discuss Discharge Vitals Temperature: 97.9 DegF Height: 180 cm Pulse Rate:??108 bpm??High Weight: 65.8 kg Respiratory Rate: 18 br/min Body Mass Index: 20.31 kg/m2 Systolic Blood Pressure:??148 mm Hg??High Body surface area: 1.81 Diastolic Blood Pressure: 81 mm Hg ?? Oxygen Saturation: 97 % ?? Studies Pending All tests and labs ordered during this hospital stay have been completed unless listed below. Please discuss all pending results with your provider listed above in these instructions. ?? Thiamine Level What to do next Instructions From Your Doctor ?? - Admitted due to alcohol withdrawal, managed well and out of withdrawal window - Low electrolytes, will continue some supplementation after discharge - Discharged back to group home in stable condition ?? Discharge Orders Diet:??Regular Diet You Need to Schedule the Following Appointments Follow Up with??Johan Bucio MD When:??Within Within one week Where: ?? Discharge Medications DIANE SALMERON :1970 Visit Date:02/26/2023 Medications: Please continue your medications until treatment is completed or stopped by your provider. Medications not listed below should be discontinued. Discuss any questions related to medications with your provider. What How Much When Instructions Next Dose New Folic Acid (folic acid 1 mg oral tablet) 1 Milligram Oral Daily 03/03?? AM New Magnesium Oxide (magnesium oxide 400 mg oral tablet) 400 Milligram Oral Twice a day Duration: 7 Days 03/02?? PM New Potassium Chloride (Potassium Chloride Packet) 40 Milliequivalent Oral Daily Duration: 5 Days 03/03?? AM New Pyridoxine (Pyridoxine Tablet) 50 Milligram Oral Daily 03/03?? AM New Senna (senna 187 mg oral tablet) 1 tab(s) Oral Twice a day as needed for Constipation as prescribed Unchanged Multivitamin With Minerals (multivitamin with minerals Antioxidant Multiple Vitamins and Minerals oral tablet) 2 tab(s) Oral Daily 03/03?? AM Unchanged Thiamine (Vitamin B1 100 mg oral tablet) 1 tab(s) Oral Daily 03/03?? AM ?? What How Much When Comments Stop Taking Chlordiazepoxide (chlordiazePOXIDE 25 mg oral capsule) 2 capsule Oral 3 times a day (). Decrease to 2 capsule BID - then 1 capsule BID - then 1 capsule QD - ?? Stop Taking Durable Medical Equipment (Crutches) See instructions ambulate with crutches ?? Stop Taking Durable Medical Equipment (Knee Immobilizer) See instructions for ambulation ?? Stop Taking Naproxen (Naprosyn 500 mg oral tablet) 1 tab(s) Oral Twice a day Stop Taking Oxycodone / Acetaminophen (Percocet-5/ 325 325 mg-5 mg oral tablet) 1 tab(s) Oral Every 6 hours as needed for Pain , Moderate Duration: 3 Days Test Results Below is a partial list of the most recent Laboratory test results done prior to this discharge. You may have had other tests and procedures not included in this list. Please discuss all test resultswith your provider. Est Creatinine Clearance - 162.67 mL/min (03/02/2023) 25OH VITAMIN D (02/26/2023) ???25 OH-Vitamin D Level - 11.5 ng/mL Alcohol Level (02/26/2023) ???Ethanol, Serum or Plasma - NONE DETECTED Ammonia Venous (02/26/2023) ???Ammonia, Venous - 17 ??mole/L Amphetamine Urine Screen (02/26/2023) ???Amphetamine Screen, Urine - NONE DETECTED Aspirin Level (02/26/2023) ? ?Salicylate Level - <0.3 mg/dL Barbiturate Urine Screen (02/26/2023) ???Barbiturate Screen, Urine - NONE DETECTED Basic Metabolic Panel (03/01/2023) ???Sodium - 130 mmol/L???Potassium - 2.8 mmol/L???Chloride - 91 mmol/L???Bicarbonate Level - 22 mmol/L???Anion Gap - 17???Glucose Level - 94 mg/dL???BUN - 4 mg/dL???Creatinine-Blood - 0.4 mg/dL???Estimated GFR Creatinine - 128 ML/MIN/1.73 M2???Calcium - 8.0 mg/dL Benzodiazepine Urine Screen (02/26/2023) ???Benzodiazepine Screen, Urine - POSITIVE Blood Gas Venous (02/26/2023) ???Specimen Type - Blood Gas - Test not performed, specimen clotted???pH, Venous - Test not performed, specimen clotted???pCO2, Venous - Test not performed, specimen clotted???pO2, Venous - Test not performed, specimen clotted???Bicarbonate, Estimated(Venous) - Test not performed, specimen clotted???Percent O2 (FIO2) - Test not performed, specimen clotted BUN (02/27/2023) ???BUN - 12 mg/dL Calcium Ionized (02/26/2023) ???Calcium, Ionized pH Corrected - ACTUAL MEASURED IONIZED CALCIUM IS 0.94 MMOL/L Cannabinoid Urine Screen (02/26/2023) ???Cannabinoid Screen, Urine - NONE DETECTED CBC (03/01/2023) ???WBC - 9.6 k/mm3???RBC - 3.13 m/mm3???Hgb - 10.8 Gm/dL???Hct - 30.7 %???MCV - 98.1 femtoliters???MCH - 34.5 pg???MCHC - 35.2 g/dL???Platelet Count - 133 k/mm3???RDW-SD - 47.0 femtoliters???MPV - 11.6 femtoliters???Nucleated RBC (Automated) - 0.0 #/100 WBC'S???Abs. NRBC - 0.0 k/mm3 CBC w/ Differential (03/02/2023) ???WBC - 8.4 k/mm3???RBC - 3.19 m/mm3???Hgb - 11.2 Gm/dL???Hct - 31.6 %???MCV - 99.1 femtoliters???MCH - 35.1 pg???MCHC - 35.4 g/dL???Platelet Count - 181 k/mm3???RDW-SD - 46.8 femtoliters???MPV - 10.8 femtoliters???Nucleated RBC (Automated) - 0.0 #/100 WBC'S???Abs. NRBC - 0.0 k/mm3???Abs. Neut - 4.7 k/mm3???Abs. Lymph - 1.2 k/mm3???Abs. [place] - 2.4 k/mm3???Abs. Eo - 0.0 k/mm3???Abs. Baso - 0.0 k/mm3???Neut % - 56.3 %???Lymph % - 14.2 %???[place] % - 28.5 %???Eos % - 0.2 %???Baso % - 0.2 %???Imm Gran - 0.6 %???Abs. Imm Gran - 0.1 k/mm3 Cocaine Urine Screen (02/26/2023) ???Cocaine Metabolite Screen, Urine - NONE DETECTED Comprehensive Metabolic Panel (03/02/2023) ???Sodium - 132 mmol/L???Potassium - 3.2 mmol/L???Chloride - 92 mmol/L???Bicarbonate Level - 23 mmol/L???Anion Gap - 17???Glucose Level - 79 mg/dL???BUN - 4 mg/dL???Creatinine-Blood - 0.5 mg/dL???Estimated GFR Creatinine - 122 ML/MIN/1.73 M2???Calcium - 8.1 mg/dL???Protein, Total - 5.8 Gm/dL???Album in - 3.4 Gm/dL???AG Ratio - 1.4???Alkaline Phosphatase - 75 units/L???AST (SGOT) - 36 units/L???ALT(SGPT) - 22 units/L???Bilirubin, Total - 1.1 mg/dL COVID-19 (Novel Coronavirus), Rapid PCR (02/26/2023) ???COVID-19 by RT-PCR - NEGATIVE Creatinine (02/27/2023) ???Creatinine-Blood - 0.8 mg/dL???Estimated GFR Creatinine - 108 ML/MIN/1.73 M2 Electrolytes (02/27/2023) ???Sodium - 136 mmol/L???Potassium - 2.6 mmol/L???Chloride - 94 mmol/L???Bicarbonate Level - 26 mmol/L???Anion Gap - 16 FERRITIN (02/28/2023) ???Ferritin Level - 1007 ng/mL FOLIC ACID (02/28/2023) ???Folic Acid Level - 6.3 ng/mL Glucose Level (02/27/2023) ???Glucose Level - 77 mg/dL GLUCOSE POC (03/02/2023) ???Glucose, POC - 88 mg/dL H + H (02/28/2023) ???Hgb - 11.1 Gm/dL???Hct - 32.2 % HIV Ab-Ag 4th Generation (02/26/2023) ???HIV 4th Generation Ab-Ag Result - NEGATIVE INR (02/26/2023) ???INR - 1.2???Protime (PT) - 12.2 seconds IRON & TIBC (02/28/2023) ???Iron Level - 20 mcg/dL???Iron Binding Capacity, Unsaturated - 239 mcg/dL???Iron Binding Capacity, Estimated Total - 259 mcg/dL???% Iron Saturation - 8 % Lactate Level (02/26/2023) ???Lactate - 1.8 mmol/L Lipase (02/26/2023) ???Lipase - 68 units/L Magnesium Level (03/01/2023) ???Magnesium - 1.4 mg/dL Opiate Screen Urine (02/26/2023) ???Opiate Screen, Urine - NONE DETECTED PHENOBARB (02/26/2023) ? ?Phenobarb Level - <2.4 mg/L Phosphorus Level (03/01/2023) ???Phosphorus - 3.0 mg/dL Potassium Level (02/27/2023) ???Potassium - 2.6 mmol/L ProBNP (02/26/2023) ???Nt-Probnp - 287 pg/mL PTT (02/26/2023) ???APTT - 25.0 seconds TSH with T4 Reflex (Adults Only) (02/26/2023) ???TSH - 0.75 uIU/mL Urinalysis w/hold for Urine Culture (02/26/2023) ???Appear/Color, Urine - YELLOW???Specific [place], Urine - 1.019???pH, Urine - 6.5???Albumin, Urine - 2+???Glucose, Urine - NEGATIVE???Ketones, Urine - 2+???Bilirubin, Urine - NEGATIVE???Hemoglobin,Urine - TRACE???Nitrite, Urine - NEGATIVE???Leukocyte, Urine - NEGATIVE???Urobilinogen - 2 mg/dL???WBC's, Urine - 2 /HPF? ?RBC's, Urine - 2 /HPF? ?Bacteria - SLIGHT? ?Squamous Epith - <1 /HPF? ?Hyaline Cast - 4 LPF???Mucus - SLIGHT???Hold Urine Culture - Testing available 48 hours from time of collection. VITAMIN B12 (02/28/2023) ???Vitamin B12 Level - 736 pg/mL Allergies (NKA means No Known Allergies) NKA Problems No qualifying data available Education Materials Below is the list of Educational Leaflet Providered with your Discharge Instructions. Discharge Instructions for Hypokalemia?? Alcohol Withdrawal?? Valuables and Belongings I fully understand and agree that [facility] accepts no responsibility for all my personal property including clothing, toilet articles, radios, jewelry, dentures, hearing aids, rings, money, or any other property that is in my possession or is brought to me after admission. I understand certain valuables may be placed in a hospital safe for a short period of time. I understand that the hospital is not liable for loss or damage due to accident, fire, or other natural occurrence while said property is in the safe. I accept full responsibility for any personal property that I keep with me, and will not hold the hospital responsible in case of loss or disappearance. I acknowledge that i have been encouraged to send valuables and belongings home. ?? No Valuables/Belongings: No valuables/belongings present Review of Valuable and Belonging List: With witness Date for Pt to Sign Valuables/Belongings: 03/01/23 05:49:00 ?? Other Discharge Information ? Pulmonary Rehab Status?? Pulmonary Rehab Discharge Status?? Respiratory Rate: 18 br/min ? Common Emergency Awareness Tips IS IT A STROKE? Act FAST and Check for these signs: FACE Does the face look uneven? ARM Does one arm drift down? SPEECH Does their speech sound strange? TIME Call at any sign of stroke ?? Heart Attack Signs Chest discomfort: Most heart attacks involve discomfort in the center of the chest and lasts more than a few minutes, or goes away and comes back. It can feel like uncomfortable pressure, squeezing, fullness or pain. Discomfort in upper body: Symptoms can include pain or discomfort in one or both arms, back, neck, jaw or stomach. Shortness of breath: With or without discomfort. Other signs: Breaking out in a cold sweat, nausea, or lightheaded. Remember, MINUTES DO MATTER. If you experience any of these heart attack warning signs, call to get immediate medical attention! ?? Smoking can increase your chances of developing chronic health problems and can cause harmful effects to other family members in your house. If you smoke, you are strongly encouraged to quit. Please call [facility] [facility] at [phone] or [phone] ([phone]) or log in to www.[email or web address] for referrals to smoking cessation programs. ?? 988 Suicide & Crisis Lifeline is available 07/12 if you or someone you know needs to find a reason to keep living. By calling 128 you'll be connected to a skilled, trained counselor at a crisis center in your area. INPATIENT DISCHARGE INSTRUCTIONS SIGNATURE PAGE DIANE SALMERON Location:[facility] Registration Date and Time:02/26/2023 15:06 EDT Primary Care Physician: Johan Bucio MD, Attending Physician: Shaun GOMEZ, Vikas Trotter, I GLENKin DIANE, have received the above patient education materials/instructions and have verbalized understanding. If ambulance or transport services are being used I further acknowledge being given a choice of service. ?? If you need to contact me, please call me at this number: . Patient/Coloring Room Worker Name: Patient/Coloring Room Worker Signature: Relationship to Patient: Witness Name/Signature: Date: * Vikas Dunn MD H: PERFORM Event Display: Patient Education Leaflets Authored Date: [id number] Discharge Instructions for Hypokalemia ?? 42230 Discharge Instructions for Hypokalemia You have been diagnosed with hypokalemia. This means you have a low level of potassium in your blood. Potassium helps??your nerve and muscle cells work as they should. These cells include the cells??in your heart. A low level of potassium in the blood can cause serious problems, such as abnormal heart rhythms and even a heart attack. Diet changes Eat more potassium-rich foods such as: ??? Bananas ??? Oranges and orange juice ??? Tomatoes, tomato sauce, and tomato juice ??? Leafy green vegetables, such as spinach, kale, salad greens, collards,and chard ??? Melons (all kinds) ??? Pomegranates ??? Peas ??? Beans ??? Potatoes ??? Sweet potatoes ??? Avocados, including guacamole ??? Vegetable juices, such as V8 ??? Fruit juices ??? All nuts and seeds ??? Fish, including tuna, halibut, salmon, cod, snapper, moira, swordfish, and perch ??? Milk, including fat-free, low-fat, whole, chocolate, and buttermilk ??? Soy milk ?? Other home care ??? Take a potassium supplement as directed by your healthcare provider. ??? After heavy exercise or any activity that causes you to sweat a lot, grab a beverage high in potassium. This includes chocolate milk, coconut water, orange juice, or low-sodium vegetable juices. ??? Be sureto eat foods or drink fluids with potassium if you have diarrhea or vomiting. ??? Have your potassium levels checked regularly as directed. ??? Take all medicines exactly as directed. ??? Tell your healthcare provider about all prescription and pudo-rlj-whfjtde medicines you are taking. This includes herbal products. Some water pills (diuretics) can cause you to lose potassium. ??? Don't have foods that are high in salt. Pass up canned and prepared foods that are high in salt. ?? Follow-up ??? Make a follow-up appointment as directed by our staff. ??? Keep all follow-up appointments. Your healthcare provider needs to monitor your condition closely. ?? When to call your healthcare provider Call your provider right away or go to the emergency room if you have any of the following: ??? Vomiting ??? Fatigue ??? Diarrhea ??? Rapid, irregular heartbeat ??? Shortness of breath ??? Chest pain??? Muscle cramps, spasms, or twitching ??? Weakness ??? Paralysis ?? Last Reviewed Date: 2022 ?? [employer]. All rights reserved. This information is not intended as a substitute for professional medical care. Always follow your healthcare professional's instructions. ?? * Shaun GOMEZ, Vikas Trotter: PERFORM Event Display: Patient Education Leaflets Authored Date: [id number] Alcohol Withdrawal ?? [id number] Alcohol Withdrawal Alcohol withdrawal often starts after prolonged heavy drinking, and then you suddenly stop drinking. Or you cut down on your alcohol use. It is not one thing. It is a complex combination of signs andsymptoms that often occur together and define a certain problem or condition. ??? Alcohol withdrawal is potentially life-threatening. It is a medical emergency. ??? It can startas early as a couple of hours after your last drink. Or it may take 1 to 3 days to develop. ??? It can last from days to a week or more. ??? It can worsen very quickly. Signs and symptoms There are??several stages of alcohol withdrawal. But they overlap, as do their signs and symptoms. In the earlier stages, it most often includes: ??? Anxiety ??? Shakiness ??? Nausea and vomiting ???Sweating ??? Insomnia ??? Headaches ??? Fever ??? Mood swings, irritability, agitation, restlessness ?? Delirium tremens (DTs) DTs are a severe and life-threatening complication. If??DTs happen, they often start about 3 to 5 days after your last drink. They are potentially life threatening, so medical care should be sought. Symptoms of DTs include: ??? Sudden and severe mental or nervous system changes ??? Uncontrollable tremors ??? Severe disorientation, confusion, hallucinations ??? Heart racing, or irregular heartbeat??? High blood pressure ??? Seizures ??? Possible coma and ?? Home care ??? You'll need plenty of rest and fluids over the next several days. Eat regular meals and drink plenty of fluids to prevent dehydration. Don't drink any more alcohol. During this time, itis best that you're not alone. Stay with family or friends who can help and support you. You can also admit yourself to a residential detox program. ??? Don't drive until all symptoms are gone and you are feeling better. If you've had a seizure, don't drive until you've been examined by a healthcare provider. ??? If you were given sedative medicine to reduce your symptoms, don't take it more often than prescribed. Never take it with alcohol. ?? Follow-up care Once you've gone through the withdrawal symptoms, you've fought half of the christensen. To avoid the risk of going back to your past drinking pattern, it's vital that you get follow-up support and treatment. ??? Alcoholics Anonymous (AA) offers support through a self-help fellowship. There are no dues or fees. Search the internet or go to the AA website at www.aa.org to find a local meeting place. ??? [employer]-Anolaith offers support to families of alcohol users. Go to the Al-Anon website at www.al-anon.org . ??? Residential alcohol detox programs are available. Search the internet for treatment centers [facility]. ?? Call 911 Call 911 if any of these occur: ??? Seizure ??? Trouble breathing or slow, irregular breathing ??? Chest pain ??? Sudden weakness on a side of the body or sudden trouble speaking ??? Heavy bleeding or vomiting blood ??? Very drowsy or trouble awakening ??? Fainting or loss of consciousness ??? Rapid heart rate ?? When to get medical advice Call your healthcare provider right away??if any of these occur: ??? Severe shakiness ??? Hallucinations ??? Fever over 100.4?? F (38.0?? C) ??? Headache, confusion, extreme drowsiness, inability to awaken ??? Increasing upper abdominal pain ??? Repeated vomiting ?? Last Reviewed Date: 2021 ?? [employer]. All rights reserved. This information is not intended as a substitute for professional medical care. Always follow your healthcare professional's instructions. ?? Patient Care team information Care Team Personnel Name: Odilia Culver RN Position: [facility] RN Member Role: Primary Care Nurse Name: Flower Pollack LPN Position: [facility] RN Member Role: Primary Care Nurse Name: Festus Isbell RN Position: S RN Member Role: Primary Care Nurse Name: Johan Bucio MD Position: [facility] Physician - Primary Care Member Role: PCP Address: Address: [address] [place] [address] [address] [facility] [place], [place] [address] Name: Andreina Cazares RN Position: [facility] RN Member Role: Primary Care Nurse Name: Vlad SHABAZZ Attending Position: [facility] ED Medicine MD Name: Vicenta Dupont Position: [facility] ED OA Charge Name: Alanis Bills RN Position: [facility] ED RN W/OE and Tasks Member Role: Patient Care Provider Name: Oziel Arceo Position: [facility] ED TA [facility] Member Role: Manager Transmission Name: [place] Lafleur RN Position: [facility] ED RN W/OE and Tasks Member Role: Patient Care Provider Care Team Related Persons Name: JOHN SALMERON Address: [address] [place] [address] Name: EPIFANIO SALMERON Address: home [address] [place] [id number]
--- OUTSIDE RECORDS SUMMARY | 2023-08-18 19:55 | XMS_ITS | Continuity of Care Document ---
Author Name Unknown Organization [facility] ter Address [address] [place] [id number]- Care Team Providers Care Pasteuriser Operator Name Role Phone Johan Bucio MD Primary Care Physician Encounter [facility] Date(s): 03/14/23 - 03/14/[address] [address]- Encounter Diagnosis Orthostatic hypotension(Final) - 03/14/23 Discharge Disposition: A-D/C Detention, Jail, or Fdc Fac Attending Physician: Christiano Soria MD Admitting Physician: Christiano Soria MD Referring Physician: Not on Staff, Referring [...] opioid drug. Start Date: 02/27/23 Status: Ordered Vital Signs Most recent to oldest [Reference Range]: 1 2 3 Oxygen Saturation [94-100 %] 100 % (03/14/23 7:41 PM) 100 % (03/14/23 6:17 PM) Pulse Rate [55-90 bpm] 74 bpm (03/14/23 7:41 PM) 79 bpm (03/14/23 6:17 PM) 99 bpm *H* (03/14/23 3:04 PM) Blood Pressure [90-138/55-84 mm Hg] 136/84mm Hg (03/14/23 7:41 PM) 143/82mm Hg *H* (03/14/23 6:17 PM) 122/76mm Hg (03/14/23 3:04 PM) Respiratory Rate [16-30 br/min] 13 br/min *L* (03/14/23 7:41 PM) 16 br/min (03/14/23 6:17 PM) 18 br/min (03/14/23 3:04 PM) Temperature [96.8-100.4 DegF] 98.1 DegF (03/14/23 7:41 PM) 97.9 DegF (03/14/23 6:17 PM) 98.6 DegF (03/14/23 3:04 PM) Mode of Delivery (Oxygen) Room air (03/14/23 7:41 PM) Room air (03/14/23 6:17 PM) Room air (03/14/23 3:04 PM) Blood pressure sites Arm, right (03/14/23 7:41 PM) Arm, left (03/14/23 6:17 PM) Arm, left (03/14/23 4:45 PM) Temperature Route Oral (03/14/23 7:41 PM) Oral (03/14/23 6:17 PM) Oral (03/14/23 3:04 PM) Social History Social History Type Response Smoking Status Current every day sm oker; Tobacco user in household: No; Type: Cigarettes; Tobacco use times per day: 2 packs per day; entered on: 07/28/15 Sex Note * Nadia Urias DO: PERFORM Event Display: Patient Education Leaflets Authored Date: [id number] Orthostatic Low Blood Pressure (Hypotension) ?? [id number] Orthostatic Low Blood Pressure (Hypotension) A blood pressure reading is made up of 2 numbers that are measured in millimeters of mercury (mmHg). There is a top number over a bottom number. The top number is the systolic pressure. The bottom number is the diastolic pressure. A normal blood pressure is a systolic pressure less than 120 mmHg over a diastolic pressure less than 80 mmHg.??Low blood pressure or hypotension is generally defined as a systolic blood pressure less than 90 mmHg. However, any drop in blood pressure greater than 40 mmHg from your normal baseline may be considered low blood pressure for you. Generally, the lower theblood pressure you have the better. However, it becomes a problem when it becomes too low and causes symptoms. Orthostatic hypotension??is a type of low blood pressure that occurs only when you change position from lying or sitting to standing. Any drop in systolic pressure of 20 mmHg or diastolic pressure of10 mm Hg when standing is significant. This drop in blood pressure can cause dizziness, lightheadedness, or fainting. Orthostatic hypotension is most commonly related to low blood volume or an abnormal neurological reflex. It's also more common as we age. However, it can be a sign of an underlying illness that may need further tests. Some medicines can cause orthostatic hypotension. These include: ??? High blood pressure medicines ??? Water pills (diuretics) ??? Some heart medicines ??? Some antidepressants ??? Pain, anxiety, sedative, and sleep medicines Other causes include: ??? Dehydration from vomiting, diarrhea, or not getting enough fluids ??? Severe infection ??? Highfever ??? Blood loss, such as bleeding from the stomach or intestines ??? Neurological diseases that affect the autonomic nervous system Treatment will depend on what is causing your low blood pressure. Home care Follow these guidelines when caring for yourself at home: ??? Rest until your symptoms get better. ??? Change positions slowly from lying to standing.??When getting out of bed, sit on the side of thebed with your legs down for at least 30 seconds before standing. This gives your body time to adjust to the position change. ??? Follow the treatment plan described by your healthcare provider. ?? Follow-up care Follow up with your healthcare provider, or as advised. ?? When to get medical advice Call your healthcare provider right away if any of these occur: ??? Mild dizziness or lightheadedness ??? Small amount of black or red color, or blood, in your stools or vomit ??? Diarrhea or vomiting that doesn???t go away ??? Not being able to eat or drink ??? Fever of 100.4??F (38??C) or higher, or as advised by your provider ??? Burning feeling when you pee??? Bad-smelling pee Call 911 Call 911, or get immediate medical care at the nearest emergency room if any of these occur: ??? Fainting; or severe dizziness or lightheadedness ??? Large amount of black or red color, or blood, in your stools or vomit ??? Abnormal chest pain or trouble breathing ?? Last Reviewed Date: 2021 ?? 9121-0461 The [employer]. All rights reserved. This information is not intended as a substitute for professional medical care. Always follow your healthcare professional's instructions. ?? Patient Care team information Care Team Personnel Name: Odilia Culver RN Position: [facility] RN Member Role: Primary Care Nurse Name: Flower Pollack LPN Position: [facility] RN Member Role: Primary Care Nurse Name: Festus Isbell RN Position: [facility] RN Member Role: Primary Care Nurse Name: Johan Bucio MD Position: [facility] Physician - Primary Care Member Role: PCP Address: Address: [address] [facility] [place] [address]- [place] Name: Andreina Cazares RN Position: [facility] RN Member Role: Primary Care Nurse Name: Christiano Soria MD Position: [facility] ED Medicine MD Member Role: Admitting Physician Address: Address: [address] [place] [id number]- [place] Name: Suyapa Galeana RN Position: [facility] ED RN W/OE and Tasks Member Role: Patient Care Provider Name: Nadia Urias DO Position: [facility] Resident Member Role: Resident Address: Address: [address] [place] [id number]- Care Team Related Persons Name: JOHN SALMERON Address: home [address] [place] [address] Name: EPIFANIO SALMERON Address: home [address] [place] [id number]
[2023-08-18 20:01] LABS: Ethanol 274 mg/dL; Magnesium 1.6 mg/dL (1.6-2.6)
[2023-08-18 20:10] LABS: Troponin-I High Sensitivity < 2.7 ng/L (<3.5-35.0)
[2023-08-18 20:18] VITALS: BP 125/80; PULSE 96; RESP 12; TEMP 36.8; O2SAT 98
[2023-08-18 21:47] VITALS: BP 109/78; PULSE 97; RESP 20; TEMP 36.7; O2SAT 98
== END 2023-08-18 21:44 | disposition home or self-care (01) ==
PROVIDERS: Emergency Provider Internal Medicine
DX: R20.2 Paresthesia of skin (principal)
CPT/HCPCS: 36415; 70496; 70498; 80307; 83735; 84484; 93005; 99284; 99285; Q9967

== ENCOUNTER → 2023-08-18 18:52 | Outpatient (BNV) | payer OTHER, SELFPAY | PROVIDERS: Emergency Provider Internal Medicine; Visit Provider Internal Medicine Cardiovascular Disease | DX: R10.32 Left lower quadrant pain (principal) | CPT/HCPCS: 93010 ==

== ENCOUNTER 2023-09-07 10:52 | Outpatient (REF) | payer OTHER, SELFPAY ==
--- NOTE | ~2023-09-07 | MM_ITS ---
EXAMINATION: MM DIAGNOSTIC DIGITAL BREAST TOMOSYNTHESIS, BILATERAL US BREAST LIMITED, LEFT MAMMOGRAPHY: CLINICAL INFORMATION: Left breast pain and swelling. 53-year-old male. COMPARISON: Mammography: None. Baseline exam. TECHNIQUE: Digital breast tomosynthesis is performed in both the craniocaudal and mediolateral oblique views along with computer-aided detection (CAD). Synthesized 2D images are generated from the tomosynthesis. This was followed by targeted left breast ultrasound. FINDINGS: There are scattered areas of fibroglandular density (ACR BI-RADS breast composition Category b). There is moderate to severe breast tissue development in the retroareolar region of the left breast, findings suggestive of gynecomastia. No definite mass, distortion, or suspicious calcifications in either breast. Deodorant artifact is present in the left greater than right axillary regions. Otherwise, no skin or axillary abnormality. Right breast demonstrates mild retroareolar tissue development suggestive of mild gynecomastia. ULTRASOUND: CLINICAL INFORMATION: Left breast pain and swelling. COMPARISON: None TECHNIQUE: Targeted sonographic evaluation was performed using a high frequency linear transducer. Left breast retroareolar region was targeted, and the right retroareolar region was examined for comparison purposes. Selected archived documentation. FINDINGS: LEFT BREAST: There is a moderate to significant retroareolar breast tissue development in the left breast, consistent with fairly classic appearing gynecomastia. No masses, cystic abnormalities, or abnormal shadowing. No hyperemia on color Doppler imaging. The right breast demonstrates minimal retroareolar breast tissue development, however no other abnormality. MM/MM tomosynthesis diagnostic BI IMPRESSION: Moderate to significant left and mild right gynecomastia. No findings suspicious for malignancy in either breast. Recommend clinical management and follow-up. OVERALL ASSESSMENT: Mammography: BI-RADS 2 - Benign Findings Ultrasound: BI-RADS 2 - Benign Findings RECOMMENDATION: 1. Patient should be managed based on the clinical impression. Results were provided to the patient at time of visit by the technologist. This patient's information was entered into a reminder system with a target due date for their next mammogram.
== END 2023-09-07 10:53 | disposition home or self-care (01) ==
LOC: HO.MAMMO 10:52
PROVIDERS: Visit Provider Nurse Practitioner Primary Care
DX: N64.59 Other signs and symptoms in breast (principal)
CPT/HCPCS: 76642; 77062; 77066

== ENCOUNTER → 2023-09-07 11:00 | Outpatient (BNV) | payer OTHER, SELFPAY | PROVIDERS: Visit Provider Radiology Diagnostic Radiology | DX: N64.4 Mastodynia (principal) | CPT/HCPCS: 76642; 77062; 77066 ==

== ENCOUNTER 2023-10-05 08:27 | Outpatient (REF) | payer OTHER, SELFPAY ==
--- NOTE | 2023-10-05 08:30 | EMG_ITS ---
Left median and ulnar motor and sensory studies were performed. Left radial sensory and median and lateral antecubital brachial sensory studies were performed. Left radial motor nerve was checked and needle examination was performed. IMPRESSION: 1. 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 2. Left synh-cc-hrpwyttn median neuropathy across carpal tunnel. 3. No evidence of a proximal lesion. MD NIKO Bella/ALANNAH / [id number]
== END 2023-10-05 08:28 | disposition home or self-care (01) ==
LOC: HO.NEURO 08:27
PROVIDERS: Visit Provider Orthopaedic Surgery
DX: R20.0 Anesthesia of skin (principal); R20.2 Paresthesia of skin
CPT/HCPCS: 95886; 95909

== ENCOUNTER 2024-01-05 12:14 | Emergency (ER) | payer OTHER, SELFPAY ==
--- NOTE | ~2024-01-05 | XR_ITS ---
EXAMINATION: XR SHOULDER, RIGHT CLINICAL INFORMATION: Right shoulder pain COMPARISON: None available. TECHNIQUE: AP external rotation, Grashey, scapular Y views of the right shoulder. FINDINGS: BONES: Bony structures are intact. There is no focal bone destruction or periosteal reaction seen. JOINTS: Alignment of joints is normal. SOFT TISSUE: Soft tissue is normal. No radiopaque foreign body or abnormal air collection is seen. XR/XR shoulder RT min 2V IMPRESSION: 1. Normal x-rays of right shoulder. No fracture or dislocation or signs of osteomyelitis are found. Electronically signed by: Aster Marmolejo MD 01/05/2024 04:57 PM EDT
--- NOTE | ~2024-01-05 | CT_ITS ---
EXAMINATION: CT HEAD WITHOUT CONTRAST CT CERVICAL SPINE WITHOUT CONTRAST CLINICAL INFORMATION: Fall. COMPARISON: CT head and cervical spine from 01/11/2023. TECHNIQUE: Contiguous axial imaging was performed from the skull base to vertex without intravenous administration of contrast. Contiguous axial imaging was performed from the upper chest through the skull base without intravenous administration of contrast. Coronal and sagittal reformats were obtained at the acquisition workstation. This CT examination was performed using dose optimization techniques as appropriate, variously including the following: *Automated exposure control. *Adjustment of mA and/or kV according to patient size (this includes techniques or standardized protocols for targeted exams where dose is matched to indication/reason for exam; i.e. extremities or head). *Use of iterative reconstruction technique. DLP: 1096 mGy-cm FINDINGS: Head: There is no evidence of acute intracranial hemorrhage or edematous territorial infarction. [place]-white matter differentiation is preserved. Scattered and partially confluent hypoattenuation in the periventricular and deep white matter are consistent with moderate microangiopathy. Proportional prominence of the ventricles and sulcal spaces without evidence of obstructive hydrocephalus. No abnormal mass effect or midline shift. No extra-axial fluid collections. No acute soft tissue or osseous abnormalities. Mild mucosal thickening of the paranasal sinuses. The mastoid air cells and middle ear cavities are clear. Cervical Spine: The atlantooccipital and atlantoaxial articulations remain well aligned. Straightening of the normal cervical lordosis. Otherwise, there is anatomic alignment of the vertebral bodies and posterior elements. No evidence of acute fracture or subluxation. The vertebral body heights are maintained. [id number] multilevel degenerative disc disease throughout the cervical spine. There is no prevertebral soft tissue swelling. The thyroid gland and remaining cervical soft tissues are within normal limits. The lung apices demonstrate no abnormalities. CT/CT cervical spine wo IV con IMPRESSION: 1. No evidence of acute intracranial hemorrhage or edematous territorial infarction. 2. No evidence of acute fracture or traumatic subluxation of the cervical spine. 3. Moderate underlying microangiopathy and generalized cerebral volume loss. Electronically signed by: Reggie Nguyen DO 01/05/2024 04:36 PM EDT
[2024-01-05 12:49] VITALS: BP 141/85; PULSE 91; RESP 14; TEMP 36.8; O2SAT 98; BMI 23.0
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
--- NOTE | 2024-01-05 18:57 | PC.NURSE ---
Security notified pt leaving, this RN not aware, occurred prior to change of shift
== END 2024-01-05 18:57 | disposition left against medical advice (07) ==
LOC: HO.ED 18:48
PROVIDERS: Emergency Provider Emergency Medicine
DX: M25.511 Pain in right shoulder (principal); Z53.21 Procedure and treatment not carried out due to patient leaving prior to being seen by health care provider
CPT/HCPCS: 70450; 72125; 73030; 99281

== ENCOUNTER 2024-02-15 12:26 | Inpatient (IN) | payer OTHER, SELFPAY ==
[2024-02-15] VITALS (14 sets, daily range): BP systolic 133–170; BP diastolic 76–100; PULSE 82–143; RESP 15–23; TEMP 36.6–37.8; O2SAT 95–98; BMI 21.8
--- NOTE | 2024-02-15 | ECG_ITS ---
Test Reason : SEIZURE Blood Pressure : / mmHG Vent. Rate : 098 BPM Atrial Rate : 098 BPM P-R Int : 168 ms QRS Dur : 094 ms QT Int : 386 ms P-R-T Axes : 019 -12 -09 degrees QTc Int : 492 ms Normal sinus rhythm Incomplete right bundle branch block Prolonged QT Abnormal ECG When compared with ECG of 15-FEB-2024 13:45, T wave inversion now evident in Inferior leads Incomplete right bundle branch block is now Present Referred By: Nano Whiting Electronically Signed By:SALBADOR CORBIN
--- NOTE | ~2024-02-15 | XR_ITS ---
EXAMINATION: XR CHEST CLINICAL INFORMATION: Syncope COMPARISON: Chest radiograph 08/08/2022 TECHNIQUE: Frontal view of the chest was obtained. FINDINGS: No significant abnormality is noted involving the heart, lungs, mediastinum, bony thorax or soft tissues. XR/XR chest 1V IMPRESSION: Unremarkable examination. Electronically signed by: Donny Mccoy MD 02/15/2024 03:11 PM EDT
--- NOTE | ~2024-02-15 | XR_ITS ---
EXAMINATION: XR SHOULDER, RIGHT CLINICAL INFORMATION: Syncope and fall. Limited range of motion. COMPARISON: None available. TECHNIQUE: AP external rotation, Grashey, scapular Y, and axillary views of the right shoulder. FINDINGS: No fracture identified. Glenohumeral and acromioclavicular alignment appears anatomic. Glenohumeral joint space appears maintained. Mild degenerative changes of the acromioclavicular joint. No abnormal soft tissue calcification appreciated. XR/XR shoulder RT min 2V IMPRESSION: No acute finding. Electronically signed by: César Arteaga MD 02/15/2024 03:32 PM EDT
--- NOTE | ~2024-02-15 | CT_ITS ---
EXAM: CT HEAD WITHOUT CONTRAST CT CERVICAL SPINE INDICATION: syncope, fall with head injury TECHNIQUE: A noncontrast CT scan was performed from the skull base to the vertex. A noncontrast CT scan of the cervical spine was performed from the base of the skull through T1 at 2.5 mm and 0.625 mm collimation. Coronal and sagittal reformats were obtained at the acquisition workstation. This CT examination was performed using dose optimization techniques as appropriate, variously including the following: * Automated exposure control * Adjustment of mA and/or kV according to patient size (this includes techniques or standardized protocols for targeted exams where dose is matched to indication/reason for exam; i.e. extremities or head) * Use of iterative reconstruction technique Dose length product is 1051 mGy-cm. COMPARISON: CT head and cervical spine 08/18/2023 FINDINGS: Head: Almonte to white matter differentiation is maintained without evidence of an acute territorial infarct. There is no intracranial hemorrhage, subarachnoid bleeding or abnormal extra-axial collection. There are scattered hypodensities throughout the periventricular and deep white matter likely related with chronic small vessel ischemic disease. There is proportional prominence of the ventricles with the cerebral sulci spaces in keeping with generalized cerebral volume loss. No evidence of mass effect or midline shift.. No acute calcaneal fracture. Ethmoid sinus mucosal thickening. Right mastoid air cells effusion, slightly more prominent as compared to previous. The paranasal sinuses otherwise are well-aerated. Cervical Spine: The atlantooccipital and atlantoaxial articulations remain well aligned. Straightening of the normal cervical lordosis. Otherwise, there is anatomic alignment of the vertebral bodies and posterior elements. No evidence of acute fracture.. Vertebral body heights are maintained.. The disc spaces are relatively preserved. The bony canal is maintained.. No prevertebral soft tissue swelling. The paraspinal soft tissues are unremarkable. Lung apices are clear. CT/CT cervical spine wo IV con IMPRESSION: No CT evidence of acute intracranial hemorrhage or edematous territorial infarction. No CT evidence of acute cervical spine fracture or malalignment. Right mastoid air cells effusion, slightly more prominent as compared to previous. Electronically signed by: Tobi Rodrigues MD 02/15/2024 02:47 PM EDT
--- NOTE | 2024-02-15 12:43 | ECG_ITS ---
Test Reason : syncope Blood Pressure : / mmHG Vent. Rate : 089 BPM Atrial Rate : 089 BPM P-R Int : 146 ms QRS Dur : 092 ms QT Int : 394 ms P-R-T Axes : 038 077 062 degrees QTc Int : 479 ms Normal sinus rhythm Normal ECG When compared with ECG of 18-AUG-2023 19:04, Heart rate has decreased Referred By: Archie Moyer Electronically Signed By:SALBADOR CORBIN
--- NOTE | 2024-02-15 12:45 | ED.SYNCOPE ---
HPI - Syncope General Chief Complaint: Syncope Stated Complaint: SYNC EP W/FALL,R SHOULDER PAIN,HIT HEAD,CONFUSED Time Seen by Provider: 02/15/24 12:37 Source: patient and EMS Mode of arrival: EMS Limitations: no limitations History of Present Illness ED Provider: DR. Moyer HPI narrative: 54-year-old male brought in by ambulance after was found by his father unconscious on the outside back porch, last thing patient remember is was smoking a cigarette sitting on recliner then the next thing patient was on the floor, with no preceding symptoms in particular no diaphoresis, no chest pain, no shortness of breath, patient declined using any drugs or drinking alcohol, patient also declined being on anticoagulation therapy, never had similar symptoms in the past, patient now is complaining of small hematoma at the top of his head, and right shoulder pain. Related Data Previous Rx's ?Medication ?Instructions ?Recorded magnesium oxide 400 mg (241.3 mg 400 mg PO DAILY #10 tabs 08/08/22 magnesium) tablet Allergies Allergy/AdvReac Type Severity Reaction Status Date / Time No Known Allergies Allergy Verified 02/15/24 12:50 Review of Systems Review of Systems: all other systems are reviewed and are negative Constitutional: Reports as per HPI and Reports no additional constitutional complaints Eyes: Reports as per HPI and Reports no additional eye complaints Reports system reviewed and no additional complaints, except as documented Cardiovascular: Reports as per HPI and Reports no additional cardiovascular complaints Respiratory: Reports as per HPI and Reports no additional respiratory complaints Gastrointestinal: Reports as per HPI and Reports no additional gastrointestinal complaints Genitourinary: Reports no additional female genitourinary complaints Musculoskeletal: Reports no additional musculoskeletal complaints Skin/Breast: Reports system reviewed and no additional complaints, except as docu Psychiatric: Reports no additional psychiatric complaints Endocrine: Reports no additional endocrine complaints Hematologic/Lymphatic: Reports no additional hematologic/lymphatic complaints Allergic/Immunologic: Reports no additional allergic/immunologic complaints Reports system reviewed and no additional complaints, except as documented and Reports Abnormal speech present [facility] Past Medical History Medical History (Updated 02/15/24 @ 17:07 by Archie Moyer MD) Syncope Back pain Anemia Numbness and tingling in left arm Insomnia Chest pain Bulging lumbar disc Surgical History History of carpal tunnel surgery of right wrist H/O arthroscopy of left knee Social History Social History Are you a primary career placement services counselor to a significant other at home: No Do you presently have visiting nurse or other home services: No Alcohol intake: current Alcohol intake frequency: 3 or more drinks per day Alcohol type: beer Patient Tobacco Use Status: Current everyday Tobacco user Tobacco use type: Cigarette Cigarette Packs Per Day: 1 Cigarettes Per Day: 20 Years Smoked: 35 Smoked in Last 30 Days: Yes Use of substances other than those prescribed or required for medical reasons: No Advance Directives: No Advance Directives Information Provided: Yes Do you have a plan to hurt others: No Plan 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al status: unemployed 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 Physical Exam Vital Signs: Vital Signs: Last Vital Signs Temp 98.2 F 02/15/24 16:33 Pulse 93 02/15/24 16:33 Resp 16 02/15/24 16:33 BP 149/93 H 02/15/24 16:33 Pulse Ox 97 02/15/24 16:33 O2 Del Method Room Air 02/15/24 16:33 BMI result Body Mass Index 21.8 Vital signs have been reviewed and appear to be correct. Blood pressure elevated. Heart rate normal. Respiratory rate normal. Temperature normal. Oxygen saturation normal. Appearance: Alert. Oriented X3. No acute distress. Head: Normal external exam. Normocephalic. Atraumatic. No Vaz signs noted. No raccoon eyes noted Eyes: PERRLA. EOMI. Conjunctiva and sclera normal. Eyelids normal. ENT: TM's Normal. Pharynx normal. Uvula midline. Moist mucous membranes. No trismus noted. No drooling noted. No muffled voice noted. Neck: Normal inspection. Neck supple. FROM. No adenopathy. Thyroid Normal. No meningeal signs. No neck mass noted. CVS: Normal heart rate and rhythm. Heart sound normal. No murmurs noted. Pulses normal throughout. Respiratory: No respiratory distress. Painless inspiration. Breath sounds normal. No wheezes/rales/rhonchi noted. Chest nontender. No accessory muscle usage noted or decreased air movement noted. Abdomen: Soft and nontender. Bowel sounds normal in all 4 quadrants. No distention noted. No organomegaly noted. No visible injury noted. Back: No CVA tenderness. Full range of motion noted. Skin: Skin warm and dry. Normal skin color. Normal skin turgor. No rashes/lesions/lacerations noted. Extremities: Right shoulder: Held in adduction position, very tender abduction position, able to flex elbow and wiggle fingers, intact sensation distally with patent right radial artery cap refill less than 2 seconds. Neuro: Oriented X 3. Cranial nerve exam: II-XII are grossly intact No motor deficit. No sensory deficit. Reflexes normal. Course Reevaluation(s) Reevaluation #1: 54-year-old male came in after having syncopal episode, patient found to be hypomagnesemic magnesium IV need to be repleted, plan was to admit the patient patient is declining admission and 1 to sign against medical advice, seriousness of the hypomagnesemia and syncopal episode was discussed with the patient potential or potential serious life-threatening complication can happen. patient stated that he has to leave because his parents are sick, Patient is AAO x3 no SI, no HI, competent to make his decision. Time: 15:52 Reevaluation #2: Patient has already been evaluated and admitted by the hospitalist now the patient is signing AMA, I talked to the patient to wait till he gets the replacement of the magnesium then he can go. Time: 16:07 Reevaluation #3: patient was ready to be discharged I was called to the room for generalized tonic-clonic seizure witnessed by myself and nurse patient has no head injury, lasted for about 2 minutes patient was given 2 mg of Ativan. Will start the patient on phenobarb likely seizure secondary to hypomagnesemia and alcohol withdrawal. Patient is postictal family at the bedside patient should get admitted. Will give another 2 g of magnesium IV. Time: 17:02 Medications Administered Generic Name Dose Route Start Last Admin Trade Name Freq PRN Reason Stop Dose Admin Magnesium Sulfate 2 gm in 50 mls @ 25 mls/hr 02/15/24 15:32 02/15/24 16:05 Magnesium Sulfate/H2o IV 02/15/24 17:31 25 mls/hr ONCE ONE Administration Magnesium Sulfate 2 gm in 50 mls @ 25 mls/hr 02/15/24 15:33 02/15/24 16:55 Magnesium Sulfate/H2o IV 02/15/24 17:32 25 mls/hr ONCE ONE Administration Magnesium Oxide 400 mg 02/15/24 17:30 02/15/24 16:12 Magnesium Oxide 400 Mg Tablet PO 400 mg BIDPC JOHNATHAN Administration Sodium Chloride 3 ml 02/15/24 16:00 02/15/24 16:47 0.9 % Sodium Chloride Flush 3 Ml Syringe IVFLUSH 3 ml QSHIFT JOHNATHAN Administration Discontinued Medications Generic Name Dose Route Start Last Admin Trade Name Mateus PRN Reason Stop Dose Admin Sodium Chloride 1,000 mls @ 999 mls/hr 02/15/24 12:43 02/15/24 14:40 Ns IV 02/15/24 13:43 Infused .Q1H1M ONE Infusion Lorazepam 2 mg 02/15/24 16:56 02/15/24 16:47 Lorazepam 2 Mg/Ml Vial IVPUSH 02/15/24 16:57 2 mg ONCE ONE Administration Morphine Sulfate 2 mg 02/15/24 14:43 02/15/24 14:46 Morphine Sulfate 2 Mg/Ml Cartridge IVPUSH 02/15/24 14:44 2 mg ONCE ONE Administration Protocol Medical Decision Making Differential Diagnosis Differential Diagnoses: The differential diagnosis associated with the presentation includes ( ACS, dehydration, syncopal due to orthostatic hypotension, electrolyte derangement, severe anemia, intracranial bleed, cervical spine injury, shoulder fracture, Alcohol withdrawal seizure) Admission/Observation Consideration of admission/observation: Escalation of care including admission/observation considered Lab Data MDM Lab Attestation statement: I reviewed the patient's lab results. 02/15/24 14:26 02/15/24 14:26 Labs: Lab Results 02/15/24 02/15/24 Range/Units 14:13 14:26 WBC 9.9 (4.8-10.8) X10*3/uL RBC 3.65 L (4.60-5.80) X10*6/uL Hgb 13.1 L (14.0-18.0) g/dl Hct 36.2 L (42.0-52.0) % MCV 99.2 H (80.0-98.0) fL MCH 35.9 H (27.0-33.0) pg MCHC 36.2 H (31.0-36.0) g/dl RDW 12.9 (11.0-16.0) % Plt Count 80 L D (160-400) X10*3/uL MPV 10.1 (9.4-12.4) fL Immature Gran % (Auto) 0.5 H (0.0-0.4) % Neut % (Auto) 75.3 H (45-73) % Lymph % (Auto) 7.1 L (20-40) % [place] % (Auto) 16.4 H (2-11) % Eos % (Auto) 0.2 (0-4) % Baso % (Auto) 0.5 (0-2) % Lymph # (Auto) 0.7 L (1.2-4.9) X10*3/uL [place] # (Auto) 1.6 H (0.1-1.2) X10*3/uL Eos # (Auto) 0.0 (0.0-0.4) X10*3/uL Baso # (Auto) 0.1 (0.0-0.2) X10*3/uL Abs Immat Gran (auto) 0.05 H (0.00-0.03) X10*3/uL Absolute Neuts (auto) 7.4 (2.0-8.3) x10*3/uL Absolute Nucleated RBC 0.000 (0.0-0.012) X10*3/uL Nucleated RBC % (auto) 0.0 (0.0-0.2) /100WBC Smear Tech's Comments VERIFIED PT 13.2 H (10.9-12.4) SEC INR 1.1 (0.9-1.1) Sodium 137 (135-145) mmol/L Potassium 3.3 (3.3-5.1) mmol/L Chloride 99 (96-108) mmol/L Carbon Dioxide 24 (22-29) mmol/L Anion Gap 17 (12-20) BUN 7 L (9-16) mg/dL Creatinine 0.71 (0.5-1.4) mg/dL Estim Creat Clear Calc 122.0 Estimated GFR > 60 Random Glucose 101 (60-115) mg/dL Calcium 8.5 D (8.4-10.2) mg/dL Magnesium 0.7 L* (1.6-2.6) mg/dL Total Bilirubin 1.5 H (0.0-1.0) mg/dL Direct Bilirubin 0.5 (0.0-0.5) mg/dL AST 49 H (5-37) U/L ALT 22 (0-40) U/L Alkaline Phosphatase 72 (39-117) U/L Troponin I High Sens 17.7 D (<3.5-35.0) ng/L B-Natriuretic Peptide 78 (<100) pg/mL Total Protein 7.4 (6.5-8.0) g/dL Albumin 4.2 (3.5-5.0) g/dL Lipase 92 H (8-78) U/L Ethyl Alcohol < 10 mg/dL Influenza Type A (PCR) NEGATIVE (Negative) Influenza Type B (PCR) NEGATIVE (Negative) RSV RNA Qual (PCR) NEGATIVE (Negative) SARS-CoV-2 RNA (RT-PCR) NEGATIVE (Negative) Independent Interpretation I performed an independent interpretation of an: Plain X-Ray ( chest /right shoulder: No acute pathology.) and CT Scan ( Head/cervical spine:No CT evidence of acute intracranial hemorrhage or edematous territorial infarction. No CT evidence of acute cervical spine fracture or malalignment. Right mastoid air cells effusion, slightly more prominent as compared to previous. ) Radiology Impression Discussion of test interpretation with radiology: I have reviewed the radiologist's reading. Discharge Plan Discharge Clinical Impression: Hypomagnesemia, Syncope, Alcohol withdrawal seizure Patient Disposition: Admitted As Inpatient Instructions: Syncope (ED) Prescriptions: No Action magnesium oxide 400 mg (241.3 mg magnesium) tablet 400 mg PO DAILY Qty: 10 0RF Stand Alone Forms: Against Medical Advice Print Language: Hebrew
[2024-02-15] MEDS: 0.9 % Sodium Chloride 1,000 ML 999 ML IV (13:25)
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
[2024-02-15 14:36] LABS: Basophils Absolute Auto 0.1 X10*3/uL (0.0-0.2); Basophils Percent Auto 0.5 % (0-2); Eosinophils Percent Auto 0.2 % (0-4); Hematocrit 36.2 % (42.0-52.0); Hemoglobin 13.1 g/dl (14.0-18.0); Imm Gran Abs Auto 0.05 X10*3/uL (0.00-0.03); Imm Gran Pct Auto 0.5 % (0.0-0.4); Lymphocytes Absolute Auto 0.7 X10*3/uL (1.2-4.9); Lymphocytes Percent Auto 7.1 % (20-40); MANUAL DIFF FLAG SCAN; Mean Corpuscular HGB Conc 36.2 g/dl (31.0-36.0); Mean Corpuscular Hemoglobin 35.9 pg (27.0-33.0); Mean Corpuscular Volume 99.2 fL (80.0-98.0); Monocytes Absolute Auto 1.6 X10*3/uL (0.1-1.2); Monocytes Percent Auto 16.4 % (2-11); Neutrophils Absolute Auto 7.4 x10*3/uL (2.0-8.3); Neutrophils Percent Auto 75.3 % (45-73); Red Blood Count 3.65 X10*6/uL (4.60-5.80); Red Cell Distribution Width 12.9 % (11.0-16.0); SCAN SMEAR FLAG 1; White Blood Count 9.9 X10*3/uL (4.8-10.8)
[2024-02-15] MEDS: Morphine Sulfate 2 MG/ML CARTRIDGE IVPUSH (14:46)
[2024-02-15 14:48] LABS: Ethanol < 10 mg/dL; INTERNATIONAL NORM RATIO 1.1 (0.9-1.1); Prothrombin Time 13.2 SEC (10.9-12.4)
[2024-02-15 14:49] LABS: Alanine Aminotransferase 22 U/L (0-40); Albumin Level 4.2 g/dL (3.5-5.0); Alkaline Phosphatase 72 U/L (39-117); Anion Gap 17 (12-20); Aspartate Amino Transferase 49 U/L (5-37); Bilirubin Direct 0.5 mg/dL (0.0-0.5); Bilirubin Total 1.5 mg/dL (0.0-1.0); Blood Urea Nitrogen 7 mg/dL (9-16); Calcium 8.5 mg/dL (8.4-10.2); Carbon Dioxide 24 mmol/L (22-29); Chloride 99 mmol/L (96-108); Estimated Glomerular Filt Rate > 60; Glucose Random 101 mg/dL (60-115); Lipase 92 U/L (8-78); Potassium 3.3 mmol/L (3.3-5.1); Sodium 137 mmol/L (135-145); Total Protein 7.4 g/dL (6.5-8.0)
[2024-02-15 14:54] LABS: B Type Natriuretic Peptide 78 pg/mL (<100)
[2024-02-15 14:57] LABS: Troponin-I High Sensitivity 17.7 ng/L (<3.5-35.0)
[2024-02-15 14:58] LABS: Influenza A PCR NEGATIVE (Negative); Influenza B PCR NEGATIVE (Negative); Resp Syncy Virus RNA Qual PCR NEGATIVE (Negative); SARS COV2 PCR INHOUSE NEGATIVE (Negative)
--- NOTE | 2024-02-15 15:10 | P.HPHOSP_ITS ---
History of Present Illness Date of Service: 02/15/24 Chief Complaint: Syncope 54-year-old male brought in by ambulance after was found by his father unconscious on the outside back porch, last thing patient remember is was smoking a cigarette sitting on recliner then the next thing patient was on the floor, with no preceding symptoms in particular no diaphoresis, no chest pain, no shortness of breath, patient declined using any drugs or drinking alcohol. Patient does not have a history of heavy alcohol use and has had syncopal episodes in the past according to the records at [facility]. Also been noted to have orthostasis. Patient was noted to have a magnesium of 0.7, IV magnesium was ordered and patient stated that he wanted to leave against medical advice, magnesium was administered and prior to patient leaving he tried to get up and ended up having a seizure. Seizure is likely more related to his hypomagnesemia but his alcohol use is probably contributing as well. Head CT, cervical spine CT in the ER showed no evidence of acute intracranial abnormality, fracture subluxation, chest x-ray was negative for consolidation or effusion Review of Systems 2 Review of Systems: Denies any recent fever chills or decrease in appetite respiratory denies any shortness of breath or cough cardiovascular denied chest pain gastrointestinal denies any dysphagia abdominal pain nausea vomiting or diarrhea genitourinary denies any dysuria frequency or hematuria musculoskeletal denies any joint pain or swelling neuropsych denies any weakness or seizures all other systems reviewed are negative [facility] Medical History (Updated 02/16/24 @ 14:57 by Jolie Coe MD) Syncope Back pain Anemia Numbness and tingling in left arm Insomnia Chest pain Bulging lumbar disc Surgical History History of carpal tunnel surgery of right wrist H/O arthroscopy of left knee Social History Household Members: Family Housing: House Are you a primary healthcare network pricing consultant to a significant other at home: No Do you presently have visiting nurse or other home services: No Alcohol intake: current Alcohol intake frequency: 3 or more drinks per day Alcohol type: beer Patient Tobacco Use Status: Current everyday Tobacco user Tobacco use type: Cigarette Cigarette Packs Per Day: 2 Cigarettes Per Day: 40.0 Years Smoked: 35 Smoked in Last 30 Days: Yes Patient Interested in Nicotine Replacement: No Patient Given Instructions on How to Stop Smoking: No (not interested) Use of substances other than those prescribed or required for medical reasons: No Currently Displaying Signs/Symptoms of Drug Intoxication Withdrawal: No Have you been hit, kicked, punched, or otherwise hurt by someone within the past year? If so, by whom?: No Do you feel safe in your current relationship?: No Current Relationship Is there a partner from a previous relationship who is making you feel unsafe now?: No Are you made to feel afraid or neglected: No Advance Directives: No Advance Directives Information Provided: Yes Do you have a plan to hurt others: No Plan Recently lost weight without trying: No Eating poorly because of decreased appetite: No Nutrition Risks: No Nutritional Risk service: No 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al status: unemployed 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 Allergies Allergy/AdvReac Type Severity Reaction Status Date / Time No Known Allergies Allergy Verified 02/15/24 12:50 Physical Exam 2 Vital Signs and Narrative: Vital Signs: Last Vital Signs Temp 98 F 02/15/24 12:52 Pulse 91 02/15/24 14:39 Resp 16 02/15/24 14:46 BP 136/94 H 02/15/24 14:39 Pulse Ox 98 02/15/24 14:39 O2 Del Method Room Air 02/15/24 14:39 BMI result Body Mass Index 21.8 Appearing in no acute distress head is normocephalic atraumatic eyes pupils are PERRLA sclera is anicteric mouth throat mucous membranes are intact and moist neck is supple no lymphadenopathy, no JVD noted lung sounds are clear to auscultation heart regular rate rhythm, clear S1, S2 positive bowel sounds, abdomen is soft, nontender neuro patient is alert x3, no focal deficits Results Labs 02/16/24 05:39 02/18/24 05:34 Labs: Laboratory Results - last 24 hr 02/15/24 02/15/24 14:13 14:26 MCV 99.2 H MCH 35.9 H MCHC 36.2 H RDW 12.9 PT 13.2 H INR 1.1 Anion Gap 17 Estim Creat Clear Calc 122.0 Estimated GFR > 60 Random Glucose 101 Calcium 8.5 D Total Bilirubin 1.5 H Direct Bilirubin 0.5 AST 49 H ALT 22 Alkaline Phosphatase 72 Troponin I High Sens 17.7 D B-Natriuretic Peptide 78 Total Protein 7.4 Albumin 4.2 Lipase 92 H Ethyl Alcohol < 10 Influenza Type A (PCR) NEGATIVE Influenza Type B (PCR) NEGATIVE RSV RNA Qual (PCR) NEGATIVE SARS-CoV-2 RNA (RT-PCR) NEGATIVE Imaging Radiologist's Impressions: Impressions Cervical Spine CT 02/15/24 12:43 IMPRESSION: No CT evidence of acute intracranial hemorrhage or edematous territorial infarction. No CT evidence of acute cervical spine fracture or malalignment. Right mastoid air cells effusion, slightly more prominent as compared to previous. Electronically signed by: Tobi Rodrigues MD 02/15/2024 02:47 PM EDT RP Head CT 02/15/24 12:43 IMPRESSION: No CT evidence of acute intracranial hemorrhage or edematous territorial infarction. No CT evidence of acute cervical spine fracture or malalignment. Right mastoid air cells effusion, slightly more prominent as compared to previous. Electronically signed by: Tobi Rodrigues MD 02/15/2024 02:47 PM EDT RP Assessment and Plan (1) Alcohol withdrawal seizure: Status: Acute Plan 54 year old man placed on observation due to syncope and new onset seizure while in the ED. Seizure Seizure while in the ED likely secondary to low magnesium, was 0.7 on admission alcohol withdrawal could also be contributing seizure precautions Syncope hx of syncopal episodes in the past secondary to hypotension and hypomagnesemia from alcohol abuse IV fluids monitor on telemetry check orthostatics daily check UA, TSH Hypomagnesemia 0.7 IV mag 4gm oral mag 400 mg BID Alcohol abuse Started on phenobarbitol protocol addiction consult DVT prophylaxis with Lovenox Full code Quality Stroke Does the patient have a stroke diagnosis?: No VTE Prior VTE?: No VTE Risk Level:: Medical - moderate - high VTE Device Contraindication: Treatment Not Indicated VTE Drug Contraindication: N/A - Med Ordered
[2024-02-15 15:27] LABS: Mean Platelet Volume 10.1 fL (9.4-12.4); Platelet Count 80 X10*3/uL (160-400); SLIDE REVIEW VERIFIED
[2024-02-15 15:33] LABS: Magnesium 0.7 mg/dL (1.6-2.6)
[2024-02-15] MEDS: Magnesium Sulfate/H2O 2 GM/50 ML PIGGYBACK IV ×2 (16:05→16:55)
[2024-02-15] MEDS: Magnesium Oxide 400 MG TABLET PO (16:12)
--- NOTE | 2024-02-15 16:33 | MHC.EDTECH ---
This pct assumed care of Patient at 1500 ,vitals taken ,Provider and RN Romy is aware that Patient refused Orthostatics vitals ,Patient is leaving AMA .
[2024-02-15] MEDS: LORazepam 2 MG/ML VIAL IVPUSH (16:47)
[2024-02-15] MEDS: 0.9 % Sodium Chloride Flush 3 ML SYRINGE IVFLUSH (16:47)
[2024-02-15] MEDS: Lactated Ringers 1,000 ML 100 ML IVCONT (17:07)
[2024-02-15] MEDS: PHENobarbitaL sodium 130 MG/ML IM ONCE 283 MG IM (17:30)
--- NOTE | 2024-02-15 17:44 | PC.NURSE ---
At approximately 1645 Pt was being d/c's AMA. After removal of IV Pt requested assistance standing up out of stretcher, at this time Pts basilio Murray arrived to the room. As this RN attempted to grasp Pts LUE, Pt turned and began speaking in incoherent words followed by becoming suddenly rigid while falling back onto the stretcher and proceeded to present with seizure like activity. Assistance called to room and urgent care provided. Suction performed, Pt placed on O2 via non-rebreather, IV accesses regained, and Ativan given. Seizure like activity subsided and VS normalized. Pt noted to be incontinent during seizure like activity. Post incident, Pt is confused and pulls at tubing/cords and frequently attempts to to leave. Sitter initiated. Verbal orders given to given Pt additional IV Mag 2g. Close friend Trevor present during incident and stayed with Pt for some time after. Trevor reports any questions for care could be directed to Pts brother Lex @ [phone] Trevor can be reached @ [phone] and plans to visit Pt tomorrow Pt changed into hospital attire and all belongings were taken by Trevor: shoes, clothes, wallet, cell phone, tank top. Pt initially came with a red sweatshirt but was cut off with Pts permission d/t RUE injury. Pt also gave permission for his to be thrown away.
--- NOTE | 2024-02-15 18:30 | MHC.EDTECH ---
Patient ekg taken and was read by Provider ,orthostatics vitals done ,JEFFRY Stanton aware not able to do standing orthostatics vitals ,Patient urine sample collected and sent to lab ,Patient very restless and confused ,Patient observer at bedside ,Seizure Pads in Place ,and all other safety measure ,Plan of care continue .
[2024-02-15 18:31] LABS: Appearance Urine Clear; Color Urine Yellow; Glucose Urine UA Negative (Negative); Leukocyte Esterase Urine Negative (Negative); Nitrite Urine Negative (Negative); Specific Gravity - Urine 1.015 (1.005-1.025); UMIC TRIGGER UACC YES; Urine Blood Moderate (2+) (Negative); Urine Ketones 40 mg/dL (Negative); Urine Protein 100 (2+) mg/dL (Neg-Trace)
--- NOTE | 2024-02-15 18:38 | PHA.MEDREC ---
Pharmacy Consult ? Medication Reconciliation Pharmacy has completed the medication reconciliation. Spoke to patient's brother who was listed as primary contact, he states Chris doesn't like to take medicine and doesn't fill any prescriptions.
[2024-02-15 18:39] LABS: Bacteria Urine None Seen (None Seen); Hyaline Casts Urine 0-2 /LPF (0-2); RBC Urine 0-2 /HPF (0-2); Squamous Epithelial Cell Urine 0-2 /HPF (0-2); WBC Urine 0-5 /HPF (0-5)
[2024-02-15 18:40] LABS: Amphetamine Screen Urine Not Detected (Not Detect); Barbiturates, Urine Not Detected (Not Detect); Benzodiazepines Screen Urine Not Detected (Not Detect); Buprenorphine Scr Not Detected (Not Detect); Cannabinoid Screen Urine Not Detected (Not Detect); Cocaine Screen Urine Not Detected (Not Detect); Fentanyl, urine Not Detected (Not Detect); Methadone Screen, Urine Not Detected (Not Detect); Opiate Screen Urine POSITIVE (Not Detect); Oxycodone Screen Urine Not Detected (Not Detect); Phencyclidine Screen Urine Not Detected (Not Detect)
[2024-02-15] MEDS: Enoxaparin Sodium 40 MG/0.4 ML SYRINGE SUBCUT (18:40)
[2024-02-15 18:59] LABS: Troponin-I High Sensitivity 20.5 ng/L (<3.5-35.0)
--- NOTE | 2024-02-15 19:42 | PC.NURSE ---
Assumed care of pt. Pt lying on stretcher, no acute distress. Currently still adamant that he not stay, explained plan o care for admission.
[2024-02-15] MEDS: Melatonin 3 MG TABLET 6 MG PO (20:47)
[2024-02-15] MEDS: PHENobarbitaL sodium 130 MG/ML VIAL IM Q3Hx2 212 MG IM (20:48)
--- NOTE | 2024-02-15 23:50 | MHC.EDTECH ---
0000 rounding done ,patient sleeping ,vitals taken ,all safety measure in Place ,1 :1 sitter at bedside .
[2024-02-16] VITALS (9 sets, daily range): BP systolic 118–143; BP diastolic 56–84; PULSE 75–100; RESP 14–21; TEMP 36.3–37.6; O2SAT 96–100; BMI 21.9
--- NOTE | 2024-02-16 | EEG_ITS ---
FINDINGS: This is a 16-channel EEG with an EKG lead. The patient is reported awake and uncooperative during the tracing. Background EEG rhythm is low amplitude fast, medium amplitude with frequent lead and muscle artifacts. Cardiac lead does not reveal any significant abnormality. Photic stimulation is unremarkable. Hyperventilation is not performed. No obvious sharp wave spikes or paroxysmal tendency noted. IMPRESSION: No significant abnormality noted on this EEG. MD NIKO Bella/ALANNAH / [id number]
[2024-02-16] MEDS: PHENobarbitaL sodium 130 MG/ML VIAL IM Q3Hx2 212 MG IM (01:20)
[2024-02-16] MEDS: Lactated Ringers 1,000 ML 100 ML IVCONT (02:17)
[2024-02-16 06:37] LABS: Hematocrit 33.3 % (42.0-52.0); Mean Corpuscular Hemoglobin 35.8 pg (27.0-33.0); Mean Corpuscular Volume 99.4 fL (80.0-98.0); Mean Platelet Volume 11.7 fL (9.4-12.4); Red Blood Count 3.35 X10*6/uL (4.60-5.80); Red Cell Distribution Width 12.9 % (11.0-16.0); White Blood Count 9.4 X10*3/uL (4.8-10.8)
[2024-02-16 06:38] LABS: Platelet Count 78 X10*3/uL (160-400)
--- NOTE | 2024-02-16 06:38 | MHC.EDTECH ---
Patient slept on and off throughout the night ,when awake attempting to climb out of bed and removing aluminum polisher ,Patient still confused ,rounding done ,Patient was change and reposition 1:1 sitter continue to be at bedside .
--- NOTE | 2024-02-16 07:00 | PC.NURSE ---
Report taken from Nirav Botello RN
[2024-02-16 07:17] LABS: Alanine Aminotransferase 20 U/L (0-40); Albumin Level 3.9 g/dL (3.5-5.0); Alkaline Phosphatase 66 U/L (39-117); Anion Gap 19 (12-20); Aspartate Amino Transferase 54 U/L (5-37); Bilirubin Total 1.7 mg/dL (0.0-1.0); Blood Urea Nitrogen 4 mg/dL (9-16); Calcium 8.1 mg/dL (8.4-10.2); Carbon Dioxide 22 mmol/L (22-29); Chloride 96 mmol/L (96-108); Creatinine Clr Calc Pharmacy 135.3; Estimated Glomerular Filt Rate > 60; Glucose Random 81 mg/dL (60-115); Sodium 134 mmol/L (135-145); Thyroid Stimulating Hormone 0.56 uIU/mL (0.32-4.0)
[2024-02-16 07:25] LABS: Magnesium 1.4 mg/dL (1.6-2.6)
--- NOTE | 2024-02-16 07:28 | PC.NURSE ---
Critical Magnesium of 1.4. Ino Coe MD notified
[2024-02-16] MEDS: Magnesium Oxide 400 MG TABLET PO ×2 (08:30→17:47)
[2024-02-16] MEDS: Magnesium Sulfate/H2O 2 GM/50 ML PIGGYBACK IV (08:30)
[2024-02-16] MEDS: PHENobarbitaL 15 MG TABLET 45 MG PO ×2 (08:33→21:34)
--- NOTE | 2024-02-16 10:18 | MHC.CM.PN ---
Vashti 02/16/24, Pt. lives with his parents, who he takes care of. He does not have a PCP and said that he does not want to get one. He is independent, no DME. HCP discussed, he declined to complete one. Pt is able to get a friend to pick him up at [place]. DCP: home, self care. CM to follow for DC needs.
--- NOTE | 2024-02-16 10:54 | PM.NEUROCN ---
History of Present Illness Data of Consult Service Date: 02/16/24 Primary Care Provider: None Physician HPI Reason for consult: Seizure 54 years old man who probably has longstanding history of alcohol abuse came to hospital after he passed out. He said something happened and he did not know the details. Apparently family found him outside. He said that he was only drinking couple of beers a day but in the past he has been in ER with quite high levels of alcohol. Review of Systems Review of Systems: No recent cold or flu-like illness PMFSH Past Medical History Medical History (Updated 02/16/24 @ 10:56 by Allan Alexis MD) Syncope Back pain Anemia Numbness and tingling in left arm Insomnia Chest pain Bulging lumbar disc Surgical History Surgical History History of carpal tunnel surgery of right wrist H/O arthroscopy of left knee Social History Social History Are you a primary manager intensive care to a significant other at home: No Do you presently have visiting nurse or other home services: No Alcohol intake: current Alcohol intake frequency: 3 or more drinks per day Alcohol type: beer Patient Tobacco Use Status: Current everyday Tobacco user Tobacco use type: Cigarette Cigarette Packs Per Day: 1 Cigarettes Per Day: 20 Years Smoked: 35 Smoked in Last 30 Days: Yes Use of substances other than those prescribed or required for medical reasons: No Advance Directives: No Advance Directives Information Provided: Yes Do you have a plan to hurt others: No Plan service: No 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al status: unemployed 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 Allergies Allergy/AdvReac Type Severity Reaction Status Date / Time No Known Allergies Allergy Verified 02/15/24 12:50 Active Medications: Current Medications Acetaminophen (Acetaminophen 325 Mg Tablet) 650 mg PO Q6H PRN PRN Reason: Pain, Mild (Pain Scale 1-3), fever or headache Calcium Carbonate (Calcium Carbonate 750 Mg Tab.Chew) 750 mg PO Q4H PRN PRN Reason: Heartburn Enoxaparin Sodium (Enoxaparin Sodium 40 Mg/0.4 Ml Syringe) 40 mg SUBCUT Q24H [facility] Last Admin: 02/15/24 18:40 Dose: 40 mg Lactated Ringer's (Lr) 1,000 mls @ 100 mls/hr IVCONT .Q10H [facility] Last Admin: 02/16/24 02:17 Dose: 100 mls/hr Magnesium Hydroxide (Milk Of Magnesia 30 Ml Oral.Susp) 30 ml PO DAILY PRN PRN Reason: Constipation Magnesium Oxide (Magnesium Oxide 400 Mg Tablet) 400 mg PO BIDPC [facility] Last Admin: 02/16/24 08:30 Dose: 400 mg Melatonin (Melatonin 3 Mg Tablet) 6 mg PO BEDTIME PRN PRN Reason: Insomnia Last Admin: 02/15/24 20:47 Dose: 6 mg Pharmacy Consult (Consult Rx Etoh Phenob Im/Po) 1 each MISCELLANE ONCE PRN; Protocol PRN Reason: Consult order Phenobarbital (Phenobarbital 15 Mg Tablet) 45 mg PO BID [facility] Stop: 02/17/24 21:01 Last Admin: 02/16/24 08:33 Dose: 45 mg Phenobarbital (Phenobarbital 30 Mg Tablet) 30 mg PO BID [facility] Stop: 02/19/24 21:01 Phenobarbital (Phenobarbital 15 Mg Tablet) 15 mg PO DAILY [facility] Stop: 02/21/24 09:01 Sodium Chloride (0.9 % Sodium Chloride Flush 3 Ml Syringe) 3 ml IVFLUSH QSHIFT [facility] Last Admin: 02/16/24 07:31 Dose: Not Given Physical Exam Vital Signs: Vital Signs: Last Vital Signs Temp 99.1 F 02/16/24 08:30 Pulse 75 02/16/24 08:30 Resp 14 02/16/24 08:30 BP 126/74 02/16/24 08:30 Pulse Ox 100 02/16/24 08:30 O2 Del Method Room Air 02/16/24 08:30 BMI result Body Mass Index 21.8 Neuro: Other: Alert and awake with flush facial. Spontaneity and fluency of speech are normal. Comprehension is normal. He is following commands. There is moderate bilateral [id number] ataxia. Deep tendon reflexes are absent with flexor plantars. Results Labs 02/16/24 05:39 02/16/24 05:39 Labs: Short CBC 02/15/24 02/16/24 Range/Units 14:26 05:39 WBC 9.9 9.4 (4.8-10.8) X10*3/uL Hgb 13.1 L 12.0 L (14.0-18.0) g/dl Hct 36.2 L 33.3 L (42.0-52.0) % Plt Count 80 L D 78 L (160-400) X10*3/uL BMP 02/15/24 02/16/24 14:26 05:39 Sodium 137 134 L Potassium 3.3 3.0 L Chloride 99 96 Carbon Dioxide 24 22 BUN 7 L 4 L Creatinine 0.71 0.64 Calcium 8.5 D 8.1 L Liver Function 02/15/24 02/16/24 Range/Units 14:26 05:39 Total Bilirubin 1.5 H 1.7 H (0.0-1.0) mg/dL Direct Bilirubin 0.5 (0.0-0.5) mg/dL AST 49 H 54 H (5-37) U/L ALT 22 20 (0-40) U/L Alkaline Phosphatase 72 66 (39-117) U/L Albumin 4.2 3.9 (3.5-5.0) g/dL Urine 02/15/24 Range/Units 18:25 Urine Color Yellow Urine Appearance Clear Urine pH 7.0 (5.0-9.0) Ur Specific [place] 1.015 (1.005-1.025) Urine Protein 100 (2+) H (Neg-Trace) mg/dL Urine Glucose (UA) Negative (Negative) mg/dL Head CT revealed moderate diffuse cerebral and cerebellar atrophy. Assessment and Plan (1) Syncope: Qualifiers: Syncope type: unspecified Qualified Code(s): R55 - Syncope and collapse Status: Acute 54 years old man with longstanding history of alcohol abuse, which has significantly impacted his brain resulting in significant cerebral and cerebellar atrophy was brought to hospital middle after a passed out. He might have a seizure. His risk of epileptic seizure was quite high. He should be advised not to drink and also not drive. [facility] regulations should be clear to him. An EEG is recommended, which can be done as an outpatient. If any similar episode would recur, I would start him on an antiepileptic. Procedures Date of Service Date of Service: 02/16/24
--- NOTE | 2024-02-16 13:56 | MHC.RECOVRN ---
AUDIT-C Brief Intervention Pt had positive screen for unhealthy alcohol use on admission. Briefly met with pt to discuss alcohol use and offer resources. Pt reports alcohol use 2x weekly, 2-3 12 ounce beers. Pt denies hx withdrawal symptoms. Does report family hx AUD. Pt denies concerns related to alcohol use. Pt declines resources/further ACS intervention. Encouraged to notify RN if he would like to discuss further.
--- NOTE | 2024-02-16 14:36 | HO.PM.IMPN ---
Subjective Subjective Date of Service: 02/16/24 Interval History: Being followed for syncope and seizure Offers no acute complaints denies lightheadedness, no dizziness, no chest pain, no palpitation, no fevers, no chills tolerating diet no nausea, no vomiting, no abdominal pain or diarrhea Denies tremors. Review of Systems All other system reviewed and are negative Physical Exam Vital Signs: Vital Signs: Last Vital Signs Temp 98.8 F 02/16/24 12:37 Pulse 82 02/16/24 12:37 Resp 18 02/16/24 12:37 BP 143/84 H 02/16/24 12:37 Pulse Ox 100 02/16/24 12:37 O2 Del Method Room Air 02/16/24 12:37 BMI result Body Mass Index 21.9 Const: Other: General resting comfortably in no acute distress. Neck no JVD. CVS regular rate rhythm, Respiratory lungs clear to auscultation, no respiratory distress, no wheeze, no rhonchi. Gastrointestinal abdomen soft, non tender, bowel sounds audible. Extremities no edema. Neuro non focal Skin flushed face Neuro non focal Psych appropriate affect Objective Data Active Medications Acetaminophen (Acetaminophen 325 Mg Tablet) 650 mg PO Q6H PRN PRN Reason: Pain, Mild (Pain Scale 1-3), fever or headache Calcium Carbonate (Calcium Carbonate 750 Mg Tab.Chew) 750 mg PO Q4H PRN PRN Reason: Heartburn Enoxaparin Sodium (Enoxaparin Sodium 40 Mg/0.4 Ml Syringe) 40 mg SUBCUT Q24H [facility] Last Admin: 02/15/24 18:40 Dose: 40 mg Documented By: KEITH Lactated Ringer's (Lr) 1,000 mls @ 100 mls/hr IVCONT .Q10H [facility] Last Admin: 02/16/24 02:17 Dose: 100 mls/hr Documented By: DOLLY Magnesium Hydroxide (Milk Of Magnesia 30 Ml Oral.Susp) 30 ml PO DAILY PRN PRN Reason: Constipation Magnesium Oxide (Magnesium Oxide 400 Mg Tablet) 400 mg PO BIDPC [facility] Last Admin: 02/16/24 08:30 Dose: 400 mg Documented By: RAMIREZ Melatonin (Melatonin 3 Mg Tablet) 6 mg PO BEDTIME PRN PRN Reason: Insomnia Last Admin: 02/15/24 20:47 Dose: 6 mg Documented By: DOLLY Pharmacy Consult (Consult Rx Etoh Phenob Im/Po) 1 each MISCELLANE ONCE PRN; Protocol PRN Reason: Consult order Phenobarbital (Phenobarbital 15 Mg Tablet) 45 mg PO BID [facility] Stop: 02/17/24 21:01 Last Admin: 02/16/24 08:33 Dose: 45 mg Documented By: RAMIREZ Phenobarbital (Phenobarbital 30 Mg Tablet) 30 mg PO BID [facility] Stop: 02/19/24 21:01 Phenobarbital (Phenobarbital 15 Mg Tablet) 15 mg PO DAILY [facility] Stop: 02/21/24 09:01 Sodium Chloride (0.9 % Sodium Chloride Flush 3 Ml Syringe) 3 ml IVFLUSH QSHIFT [facility] Last Admin: 02/16/24 07:31 Dose: Not Given Documented By: RAMIREZ Non-Admin Reason: Previously Administered Labs 02/16/24 05:39 02/16/24 05:39 Labs: Laboratory Results - last 24 hr 02/15/24 02/15/24 02/15/24 14:13 14:26 18:25 MCV 99.2 H MCH 35.9 H MCHC 36.2 H RDW 12.9 Plt Count 80 L D MPV 10.1 Immature Gran % (Auto) 0.5 H Neut % (Auto) 75.3 H Lymph % (Auto) 7.1 L Lyman % (Auto) 16.4 H Eos % (Auto) 0.2 Baso % (Auto) 0.5 Lymph # (Auto) 0.7 L Lyman # (Auto) 1.6 H Eos # (Auto) 0.0 Baso # (Auto) 0.1 Abs Immat Gran (auto) 0.05 H Absolute Neuts (auto) 7.4 Absolute Nucleated RBC 0.000 Nucleated RBC % (auto) 0.0 Smear Tech's Comments VERIFIED PT 13.2 H INR 1.1 Anion Gap 17 Estim Creat Clear Calc 122.0 Estimated GFR > 60 Random Glucose 101 Calcium 8.5 D Magnesium 0.7 L* Total Bilirubin 1.5 H Direct Bilirubin 0.5 AST 49 H ALT 22 Alkaline Phosphatase 72 Troponin I High Sens 17.7 D B-Natriuretic Peptide 78 Total Protein 7.4 Albumin 4.2 Lipase 92 H TSH Urine Color Yellow Urine Appearance Clear Urine pH 7.0 Ur Specific [place] 1.015 Urine Protein 100 (2+) H Urine Glucose (UA) Negative Urine Ketones 40 Urine Blood Moderate (2+) H Urine Nitrite Negative Ur Leukocyte Esterase Negative Urine RBC 0-2 Urine WBC 0-5 Ur Squamous Epith Cells 0-2 Urine Bacteria None Seen Hyaline Casts 0-2 Urine Opiates Screen POSITIVE H Ur Buprenorphine Scrn Not Detected Ur Oxycodone Screen Not Detected Urine Methadone Screen Not Detected Urine Fentanyl Screen Not Detected Ur Barbiturates Screen Not Detected Ur Phencyclidine Scrn Not Detected Ur Amphetamines Screen Not Detected U Benzodiazepines Scrn Not Detected Urine Cocaine Screen Not Detected U Marijuana (THC) Screen Not Detected Ethyl Alcohol < 10 Influenza Type A (PCR) NEGATIVE Influenza Type B (PCR) NEGATIVE RSV RNA Qual (PCR) NEGATIVE SARS-CoV-2 RNA (RT-PCR) NEGATIVE 02/15/24 02/16/24 18:26 05:39 MCV 99.4 H MCH 35.8 H MCHC 36.0 RDW 12.9 Plt Count 78 L MPV 11.7 Immature Gran % (Auto) Neut % (Auto) Lymph % (Auto) Lyman % (Auto) Eos % (Auto) Baso % (Auto) Lymph # (Auto) Lyman # (Auto) Eos # (Auto) Baso # (Auto) Abs Immat Gran (auto) Absolute Neuts (auto) Absolute Nucleated RBC 0.000 Nucleated RBC % (auto) 0.0 Smear Tech's Comments PT INR Anion Gap 19 Estim Creat Clear Calc 135.3 Estimated GFR > 60 Random Glucose 81 Calcium 8.1 L Magnesium 1.4 L* Total Bilirubin 1.7 H Direct Bilirubin AST 54 H ALT 20 Alkaline Phosphatase 66 Troponin I High Sens 20.5 B-Natriuretic Peptide Total Protein 7.0 Albumin 3.9 Lipase TSH 0.56 Urine Color Urine Appearance Urine pH Ur Specific [place] Urine Protein Urine Glucose (UA) Urine Ketones Urine Blood Urine Nitrite Ur Leukocyte Esterase Urine RBC Urine WBC Ur Squamous Epith Cells Urine Bacteria Hyaline Casts Urine Opiates Screen Ur Buprenorphine Scrn Ur Oxycodone Screen Urine Methadone Screen Urine Fentanyl Screen Ur Barbiturates Screen Ur Phencyclidine Scrn Ur Amphetamines Screen U Benzodiazepines Scrn Urine Cocaine Screen U Marijuana (THC) Screen Ethyl Alcohol Influenza Type A (PCR) Influenza Type B (PCR) RSV RNA Qual (PCR) SARS-CoV-2 RNA (RT-PCR) Assessment and Plan (1) Alcohol withdrawal seizure: Status: Acute (2) Syncope: Status: Acute (3) Hypomagnesemia: Status: Acute (4) Hypokalemia: Status: Acute Plan 54 year old man placed on observation due to syncope and new onset seizure while in the ED. Syncope Question due to Seizure related to alcohol withdrawal Noted to have an episode of seizure in ED /positive orthostatic BP Continue seizure precautions Normal TSH DC IV fluids CT head showed no acute intracranial hemorrhage or edema, noted to have generalized cerebral volume loss, no CT evidence of acute cervical spine fracture or malalignment Seen by Neurology they recommend outpatient EEG, patient at high risk for epileptic seizure due to abnormal CT brain, new recommend no driving Strongly recommend to abstain from alcohol. acute Hypokalemia will replete and follow labs acute Hypomagnesemia 0.7 on admission received 4 g of IV magnesium, magnesium level improved to 1.4 Will give 2 g of IV magnesium and continue oral mag 400 mg BID Alcohol abuse and WD with seizure on phenobarbitol protocol , strongly recommend to abstain from alcohol Seen by Addiction Team patient denied concern related to alcohol use, report drinking alcohol 2 times weekly 2-3,12 oz beers Noted to have elevated alcohol levels in the past, on admission alcohol level less than 10 DVT prophylaxis with Lovenox Full code Patient requires inpatient hospitalization for management of alcohol withdrawal currently on phenobarb protocol, close monitoring for recurrent seizures. Quality Stroke Does the patient have a stroke diagnosis?: No VTE Prior VTE?: No VTE Risk Level:: Medical - moderate - high VTE Device Contraindication: Treatment Not Indicated VTE Drug Contraindication: N/A - Med Ordered
[2024-02-16] MEDS: Enoxaparin Sodium 40 MG/0.4 ML SYRINGE SUBCUT (17:47)
[2024-02-16] MEDS: Potassium Chloride ER 20 MEQ TAB.ER.PRT 40 MEQ PO (17:47)
[2024-02-16] MEDS: 0.9 % Sodium Chloride Flush 3 ML SYRINGE IVFLUSH ×2 (17:48→21:34)
[2024-02-16] MEDS: Acetaminophen 325 MG TABLET 650 MG PO (21:33)
[2024-02-17] VITALS: BP 133/85; PULSE 104; RESP 20; TEMP 36.1; O2SAT 99
[2024-02-17 03:53] VITALS: BP 135/73; PULSE 84; RESP 20; TEMP 37.2; O2SAT 98
[2024-02-17 06:50] LABS: Anion Gap 15 (12-20); Blood Urea Nitrogen 5 mg/dL (9-16); Calcium 8.3 mg/dL (8.4-10.2); Carbon Dioxide 26 mmol/L (22-29); Chloride 97 mmol/L (96-108); Estimated Glomerular Filt Rate > 60; Glucose Random 103 mg/dL (60-115); Magnesium 1.6 mg/dL (1.6-2.6); Potassium 2.6 mmol/L (3.3-5.1); Sodium 135 mmol/L (135-145)
[2024-02-17 07:13] VITALS: BP 130/81; PULSE 83; RESP 18; TEMP 36.9; O2SAT 99
[2024-02-17] MEDS: Magnesium Oxide 400 MG TABLET PO ×2 (08:21→17:19)
[2024-02-17] MEDS: PHENobarbitaL 15 MG TABLET 45 MG PO ×2 (08:21→20:30)
[2024-02-17] MEDS: 0.9 % Sodium Chloride Flush 3 ML SYRINGE IVFLUSH ×3 (08:22→20:32)
[2024-02-17] MEDS: Potassium Chloride Packet 20 MEQ PACKET 40 MEQ PO ×2 (08:22→20:30)
[2024-02-17] MEDS: Acetaminophen 325 MG TABLET 650 MG PO ×2 (08:25→15:16)
[2024-02-17] MEDS: Potassium Chloride ER 20 MEQ TAB.ER.PRT PO (10:34)
[2024-02-17 10:49] VITALS: BP 126/73; PULSE 93; RESP 18; TEMP 37.4; O2SAT 99
--- NOTE | 2024-02-17 13:33 | HO.PM.IMPN ---
Subjective Subjective Date of Service: 02/18/24 Interval History: Complaining of right shoulder pain, denies fever chills, no headache no dizziness, no nausea, no vomiting no diarrhea, no abdominal pain tolerating diet, denies alcohol related issues, admits to drinking 2 beers daily takes care of his parents. Review of Systems All other system reviewed and are negative Physical Exam Vital Signs: Vital Signs: Last Vital Signs Temp 99.3 F 02/17/24 10:49 Pulse 93 02/17/24 10:49 Resp 18 02/17/24 10:49 BP 126/73 02/17/24 10:49 Pulse Ox 99 02/17/24 10:49 O2 Del Method Room Air 02/17/24 10:49 BMI result Body Mass Index 21.9 Const: Other: General resting comfortably in no acute distress. Neck no JVD. CVS regular rate rhythm, Respiratory lungs clear to auscultation, no respiratory distress, no wheeze, no rhonchi. Gastrointestinal abdomen soft, non tender, bowel sounds audible. Extremities no edema. Neuro non focal Rt shoulder restricted range of motion/no swelling/no redness Skin flushed face Neuro non focal Psych appropriate affect Objective Data Active Medications Acetaminophen (Acetaminophen 325 Mg Tablet) 650 mg PO Q6H PRN PRN Reason: Pain, Mild (Pain Scale 1-3), fever or headache Last Admin: 02/17/24 08:25 Dose: 650 mg Documented By: ALBER Calcium Carbonate (Calcium Carbonate 750 Mg Tab.Chew) 750 mg PO Q4H PRN PRN Reason: Heartburn Enoxaparin Sodium (Enoxaparin Sodium 40 Mg/0.4 Ml Syringe) 40 mg SUBCUT Q24H [facility] Last Admin: 02/16/24 17:47 Dose: 40 mg Documented By: JERRY Magnesium Hydroxide (Milk Of Magnesia 30 Ml Oral.Susp) 30 ml PO DAILY PRN PRN Reason: Constipation Magnesium Oxide (Magnesium Oxide 400 Mg Tablet) 400 mg PO BIDPC [facility] Last Admin: 02/17/24 08:21 Dose: 400 mg Documented By: ALBER Melatonin (Melatonin 3 Mg Tablet) 6 mg PO BEDTIME PRN PRN Reason: Insomnia Last Admin: 02/15/24 20:47 Dose: 6 mg Documented By: DOLLY Pharmacy Consult (Consult Rx Etoh Phenob Im/Po) 1 each MISCELLANE ONCE PRN; Protocol PRN Reason: Consult order Phenobarbital (Phenobarbital 15 Mg Tablet) 45 mg PO BID [facility] Stop: 02/17/24 21:01 Last Admin: 02/17/24 08:21 Dose: 45 mg Documented By: ALBER Phenobarbital (Phenobarbital 30 Mg Tablet) 30 mg PO BID [facility] Stop: 02/19/24 21:01 Phenobarbital (Phenobarbital 15 Mg Tablet) 15 mg PO DAILY [facility] Stop: 02/21/24 09:01 Potassium Chloride (Potassium Chloride Packet 20 Meq Packet) 40 meq PO BID [facility] Last Admin: 02/17/24 08:22 Dose: 40 meq Documented By: ALBER Sodium Chloride (0.9 % Sodium Chloride Flush 3 Ml Syringe) 3 ml IVFLUSH QSHIFT [facility] Last Admin: 02/17/24 08:22 Dose: 3 ml Documented By: ALBER Labs 02/16/24 05:39 02/18/24 05:34 Labs: Laboratory Results - last 24 hr 02/17/24 05:58 Anion Gap 15 Estim Creat Clear Calc 145.0 Estimated GFR > 60 Random Glucose 103 Calcium 8.3 L Magnesium 1.6 Assessment and Plan (1) Hypokalemia: Status: Acute (2) Alcohol withdrawal seizure: Status: Acute (3) Syncope: Status: Acute Plan 54 year old man placed on observation due to syncope and new onset seizure while in the ED. Syncope Question due to Seizure related to alcohol withdrawal Noted to have an episode of seizure in ED /positive orthostatic BP Continue seizure precautions , no recurrent seizures since admission Normal TSH CT head showed no acute intracranial hemorrhage or edema, noted to have generalized cerebral volume loss, no CT evidence of acute cervical spine fracture or malalignment Seen by Neurology they recommend outpatient EEG, patient at high risk for epileptic seizure due to abnormal CT brain, Patient agreeable to no driving,(currently does not drive), no operating machinery or tub baths Strongly recommend to abstain from alcohol. acute Hypokalemia will replete and follow labs acute Hypomagnesemia Repleted and normalized and continue oral mag 400 mg BID Alcohol abuse and WD with seizure on phenobarbitol protocol , strongly recommend to abstain from alcohol Seen by Addiction Team patient denied concern related to alcohol use, report drinking alcohol 2 x12 oz beers daily Noted to have elevated alcohol levels in the past, on admission alcohol level less than 10 CIWA 1 Right shoulder pain recent x-ray shoulder showed no fracture or dislocation or signs of osteomyelitis/ apply Salonpas/rom exercises DVT prophylaxis with Lovenox Full code Patient requires inpatient hospitalization for management of alcohol withdrawal currently on phenobarb protocol, close monitoring for recurrent seizures. Quality Stroke Does the patient have a stroke diagnosis?: No VTE Prior VTE?: No VTE Risk Level:: Medical - moderate - high VTE Device Contraindication: Treatment Not Indicated VTE Drug Contraindication: N/A - Med Ordered
[2024-02-17] MEDS: Lidocaine 4 % Patch ADH..PATCH 1 PATCH TRANSDERMA (13:36)
[2024-02-17] MEDS: Enoxaparin Sodium 40 MG/0.4 ML SYRINGE SUBCUT (15:17)
[2024-02-17 15:48] VITALS: BP 148/95; PULSE 99; RESP 18; TEMP 36.7; O2SAT 100
[2024-02-17 20:00] VITALS: BP 135/74; PULSE 82; RESP 20; TEMP 36.7; O2SAT 99
[2024-02-17] MEDS: Melatonin 3 MG TABLET 6 MG PO (23:13)
[2024-02-18] VITALS: BP 139/86; PULSE 113; RESP 20; TEMP 36.3; O2SAT 94
[2024-02-18] MEDS: Acetaminophen 325 MG TABLET 650 MG PO (02:00)
[2024-02-18] MEDS: PHENobarbitaL sodium 65 MG/ML VIAL IM (02:37)
--- NOTE | 2024-02-18 06:18 | PM.EVENT ---
Event Note Date of Service: 02/18/24 Event Note: 6:00 AM - Contacted to notify patient wants to leave AMA. Spoke with Thonytracie and wants to go home. He called a friend who is going to pick him up. Thonytracie is alert and oriented X3. He understands the risk of leaving the hospital prematurately such as seizures and traumatic falls resulting in disability and . I insisted in multiple times and asked him to stay but he continued to refuse. He signed AMA paperwork, his RN Yanira was the witness. Time Spent With Patient Time: Total time managing care of this patient today ____ minutes.
[2024-02-18 06:25] LABS: Anion Gap 14 (12-20); Blood Urea Nitrogen 5 mg/dL (9-16); Calcium 8.5 mg/dL (8.4-10.2); Carbon Dioxide 24 mmol/L (22-29); Chloride 100 mmol/L (96-108); Creatinine Clr Calc Pharmacy 147.4; Estimated Glomerular Filt Rate > 60; Glucose Random 99 mg/dL (60-115); Magnesium 1.3 mg/dL (1.6-2.6); Potassium 2.9 mmol/L (3.3-5.1); Sodium 135 mmol/L (135-145)
--- NOTE | 2024-02-18 07:26 | PC.NURSE ---
0600 pt requested to speak with md in regards to wishing to leave. md at bedside with education regarding dangers of leaving against medical advice. pt reports he understands and if needed will return to hospital for treatment. IV access removed and telemonitor removed. 0630 pt left unit.
--- NOTE | 2024-02-18 07:33 | PM.DS ---
DS: Providers Provider Date of Service: 02/18/24 Date of admission: 02/17/24 08:39 Date of discharge: 02/18/24 Primary care physician: None Physician Consults: 02/15/24 17:12 Addiction Medicine Routine Consulting Provider: Addiction Covering Reason for consultation: ETOH 02/15/24 18:59 Consult to Neurology Routine Consulting Provider: [facility] Reason for consultation: seizure in ED, alcohol abuse, Frequent syncopal episodes at home 02/16/24 21:32 Consult to Wound Care Routine Reason for consultation: area to abdomen DS: Diagnosis Discharge Diagnosis (1) Hypokalemia: Status: Acute (2) Alcohol withdrawal seizure: Status: Acute (3) Syncope: Status: Acute DS: Summary Hospital Course Hospital Course: History of presenting illness: Date of Service: 02/15/24 Chief Complaint: Syncope 54-year-old male brought in by ambulance after was found by his father unconscious on the outside back porch, last thing patient remember is was smoking a cigarette sitting on recliner then the next thing patient was on the floor, with no preceding symptoms in particular no diaphoresis, no chest pain, no shortness of breath, patient declined using any drugs or drinking alcohol. Patient does not have a history of heavy alcohol use and has had syncopal episodes in the past according to the records at [facility]. Also been noted to have orthostasis. Patient was noted to have a magnesium of 0.7, IV magnesium was ordered and patient stated that he wanted to leave against medical advice, magnesium was administered and prior to patient leaving he tried to get up and ended up having a seizure. Seizure is likely more related to his hypomagnesemia but his alcohol use is probably contributing as well. Head CT, cervical spine CT in the ER showed no evidence of acute intracranial abnormality, fracture subluxation, chest x-ray was negative for consolidation or effusion. Hospital course: 54 year old man presented due to syncope , and noted to have an episode of seizure in the emergency room, admitted to intermediate care unit with a diagnosis of Syncope, likely due to Seizure, related to alcohol withdrawal And due to positive orthostatic BP, patient treated with IV fluids, phenobarb protocol, magnesium and potassium supplements, noted to have no recurrent seizures, had normal TSH, CT head showed no acute intracranial hemorrhage or edema, noted to have generalized cerebral volume loss, no CT evidence of acute cervical spine fracture or malalignment, Seen by Neurology they recommend outpatient EEG, patient at high risk for epileptic seizure due to abnormal CT brain, ,Patient agreeable to no driving,(currently does not drive), no operating machinery or tub baths , patient was seen by Addiction Team however he declined outpatient resources, this morning patient decided to leave hospital against medical advice patient was awake alert and understood the consequences of recurrent seizures , cardiac arrhythmias and with abnormal electrolytes but he chose to leave hospital. acute Hypokalemia and acute Hypomagnesemia was aggressively repleted but remains low patient left before receiving medications Right shoulder pain recent x-ray shoulder showed no fracture or dislocation or signs of osteomyelitis/ recommend to continue hot packs salonpas and Tylenol Time Attestation Discharge Coordination Time (in mins): 34 Quality: Safe Use of Opioids Does Pt have an Active Cancer Diagnosis on the Problem List?: No Quality: Stroke Does the patient have a stroke diagnosis?: No Physical Exam Vital Signs: Vital Signs: Last Vital Signs Temp 97.3 F 02/18/24 00:00 Pulse 113 H 02/18/24 00:00 Resp 20 02/18/24 00:00 BP 139/86 02/18/24 00:00 Pulse Ox 94 02/18/24 00:00 O2 Del Method Room Air 02/18/24 00:00 BMI result Body Mass Index 21.9 Const: Other: General resting comfortably in no acute distress. Neck no JVD. CVS regular rate rhythm, Respiratory lungs clear to auscultation, no respiratory distress, no wheeze, no rhonchi. Gastrointestinal abdomen soft, non tender, bowel sounds audible. Extremities no edema. Neuro non focal Rt shoulder restricted range of motion/no swelling/no redness Skin flushed face Neuro non focal Psych appropriate affect DS: Data Data Completed and Pending Labs on day of discharge: Laboratory Results - last 24 hr 02/17/24 02/18/24 14:09 05:34 Sodium 135 Potassium 3.0 L 2.9 L* Chloride 100 Carbon Dioxide 24 Anion Gap 14 BUN 5 L Creatinine 0.59 Estim Creat Clear Calc 147.4 Estimated GFR > 60 Random Glucose 99 Calcium 8.5 Magnesium 1.3 L* Total Bilirubin 1.0 Discharge Plan Discharge Patient Disposition: Left Against Medical Advice Discharge Diagnosis: Syncope Alcohol withdrawal seizure Acute hypomagnesemia Acute hypokalemia Referrals: Physician,None [Primary Care Provider] - 1 Week Discharge Orders: Discharge Order (Routine); Ordered 02/18/24 Ordered By: Linden Rose Stand Alone Forms: Against Medical Advice Print Language: Bengali Care Plan Goals: Alcohol withdrawal seizure/syncope/electrolyte abnormality Strongly recommend to abstain from alcohol/recommend to avoid driving car operating machinery or taking tub baths Patient does not drive currently Recommended to return to hospital with headache, lightheadedness, dizziness, passing out or recurrent seizures Health Concerns: Alcohol use disorder Plan of Treatment: Outpatient follow-up with primary care physician call for appointment Assessment: As above Patient Instructions: Syncope (ED) Discharge Date/Time: 02/18/24 07:39
== END 2024-02-18 07:39 | disposition left against medical advice (07) | DRG 770 ==
LOC: HO.ED 17:07 → HO.EDOVER 17:23 → HO.IMC 02-16 11:48
PROVIDERS: Admitting Provider Nurse Practitioner Acute Care; Emergency Provider Emergency Medicine; Visit Provider Hospitalist
DX: F10.139 Alcohol abuse with withdrawal, unspecified (principal); R56.9 Unspecified convulsions; E83.42 Hypomagnesemia; E87.6 Hypokalemia; I95.1 Orthostatic hypotension; F17.210 Nicotine dependence, cigarettes, uncomplicated; Z20.822 Contact with and (suspected) exposure to COVID-19; G31.9 Degenerative disease of nervous system, unspecified; Z71.41 Alcohol abuse counseling and surveillance of alcoholic; Z71.6 Tobacco abuse counseling; Z79.899 Other long term (current) drug therapy
CPT/HCPCS: 0241U; 36415; 70450; 71045; 72125; 73030; 80048; 80053; 80076; 80307; 81001; 82247; 83690; 83735; 83880; 84132; 84443; 84484; 85025; 85027; 85610; 93005; 95816; 97162; 99285; J1650; J2060; J2270; J2560; J3475; J7120

== ENCOUNTER → 2024-02-15 15:21 | Outpatient (BNV) | payer OTHER, SELFPAY | PROVIDERS: Admitting Provider Nurse Practitioner Acute Care; Emergency Provider Emergency Medicine; Visit Provider Hospitalist | DX: F10.939 Alcohol use, unspecified with withdrawal, unspecified (principal); R56.9 Unspecified convulsions; R55 Syncope and collapse; E83.42 Hypomagnesemia | CPT/HCPCS: 99223; 99232; 99233; 99239; 99499 ==

== ENCOUNTER → 2024-02-15 15:21 | Outpatient (BNV) | payer OTHER, SELFPAY | PROVIDERS: Admitting Provider Nurse Practitioner Acute Care; Emergency Provider Emergency Medicine; Visit Provider Psychiatry & Neurology Neurology | DX: R55 Syncope and collapse (principal) | CPT/HCPCS: 99222 ==

== ENCOUNTER 2024-08-06 05:42 | Inpatient (IN) | payer OTHER, SELFPAY ==
[2024-08-06] VITALS (33 sets, daily range): BP systolic 79–162; BP diastolic 54–113; PULSE 72–156; RESP 13–20; TEMP 36.4–38.1; O2SAT 98–100; BMI 24.3; BMI 24.0
--- NOTE | ~2024-08-06 | CT_ITS ---
CLINICAL HISTORY: unwitnessed fall catatonia post fall CT cervical spine without contrast Comparison: CT/SR - CT CERVICAL SPINE WO IV CON - 02/15/24 12:59 EDT Findings: Small marginal osteophyte formation is seen at C3. Vertebral body heights are well-maintained. No acute fracture or subluxation is identified. Alignment is within normal limits. There is no canal stenosis. There is partial opacification of right mastoid air cells. The lung apices are clear. The thyroid gland appears normal. IMPRESSION: No acute osseous abnormality is identified. This document has been electronically signed by: Michelle Xie on 08/06/2024 08:56:33
--- NOTE | ~2024-08-06 | FL_ITS ---
EXAMINATION: FL GUIDANCE ONLY HISTORY: closed reduction COMPARISON: Correlation is made with plain films of the right shoulder dated 08/03/2024. TECHNIQUE: Fluoroscopy time: 0.1 minutes. Cumulative Dose: 0.967 mGy. DAP: 0.0167 mGym2 Images: 2. FINDINGS: Images demonstrate reduction of the previously seen dislocation. FL/FL guidance in OR IMPRESSION: Fluoroscopy during procedure. Please see procedure report for additional information. Electronically signed by: Washington Sandoval MD 08/22/2024 03:27 PM EDT
--- NOTE | ~2024-08-06 | XR_ITS ---
CLINICAL HISTORY: hypoxia aspiration PNA? 1 view chest x-ray Comparison: 08/06/2024 Findings: Portions of the exam is obscured by overlying material. There is right upper lobe consolidation, possible pneumonia or subsegmental atelectasis Normal size heart. No acute fracture. IMPRESSION: 1. Right upper lobe consolidation, differential considerations noted. This document has been electronically signed by: Dinesh Bowling MD on 08/10/2024 22:19:05
--- NOTE | ~2024-08-06 | XR_ITS ---
EXAMINATION: XR CHEST 1 VIEW HISTORY: F U Hypoxia, PNA COMPARISON: Comparison is made with the prior examination dated 08/10/2024. FINDINGS: A single AP portable view of the chest performed at 8:08 AM is submitted. There are diffuse bilateral airspace opacities compatible with diffuse pneumonia, pulmonary edema, or ARDS. There is no pleural effusion or pneumothorax. The heart is normal in size. There is a fracture deformity of the right humeral head. XR/XR chest 1V IMPRESSION: Diffuse bilateral airspace opacities, compatible with pneumonia, pulmonary edema, or ARDS. Electronically signed by: Washington Sandoval MD 08/18/2024 08:47 AM EDT
--- NOTE | ~2024-08-06 | XR_ITS ---
CLINICAL HISTORY: cough 1 view chest x-ray Comparison: CR/ND/SR - XR CHEST 1V - 02/15/24 13:19 EDT Findings: No consolidation or effusion. Normal size heart. Acute appearing comminuted right humeral neck fracture is present with inferomedial subluxation of the humeral head. IMPRESSION: 1. No acute cardiopulmonary abnormality. 2. Acute comminuted right humeral neck fracture with inferomedial subluxation of the humeral head. This document has been electronically signed by: Michelel Xie on 08/06/2024 08:07:50
--- NOTE | ~2024-08-06 | XR_ITS ---
CLINICAL HISTORY: trauma 2 view right shoulder Comparison: CR/SR - XR SHOULDER RT MIN 2V - 02/15/24 13:21 EDT Findings: Right anterior shoulder dislocation is present with acute comminuted right humeral neck fracture. There is superior displacement of the distal fragment. IMPRESSION: 1. Right anterior shoulder dislocation with acute comminuted right humeral neck fracture. There is superior displacement of the distal fragment. This document has been electronically signed by: Michelle Xie on 08/06/2024 08:10:18
--- NOTE | ~2024-08-06 | CT_ITS ---
CLINICAL HISTORY: unwitnessed fall catatonia post fall CT head without contrast Comparison: CT/SR - CT HEAD/BRAIN WO IV CON - 02/15/24 12:59 EDT Findings: Mild bilateral periventricular hypodensities are present. Cortical volume loss is seen. There is no evidence of hemorrhage, mass, mass effect, or hydrocephalus. There is partial opacification of right mastoid air cells. The orbits are within normal limits. There is no acute fracture. IMPRESSION: 1. No acute intracranial abnormality. 2. Mild chronic microvascular ischemic disease. 3. Right mastoid air cell disease. This document has been electronically signed by: Michelle Xie on 08/06/2024 09:01:49
--- NOTE | ~2024-08-06 | XR_ITS ---
CLINICAL HISTORY: unwitnessed fall, pain with movement 2 view left shoulder Comparison: None Findings: No acute fracture or dislocation is identified. Soft tissue structures appear within normal limits. IMPRESSION: 1. No acute osseous abnormality is identified. This document has been electronically signed by: Michelle Xie on 08/06/2024 08:08:44
--- NOTE | 2024-08-06 05:51 | ECG_ITS ---
Test Reason : UNWIT FALL TACHY Blood Pressure : */* mmHG Vent. Rate : 143 BPM Atrial Rate : 143 BPM P-R Int : 124 ms QRS Dur : 78 ms QT Int : 348 ms P-R-T Axes : -15 144 146 degrees QTcB Int : 537 ms Sinus tachycardia Left posterior fascicular block Possible Inferior infarct , age undetermined Possible Brugada pattern Abnormal ECG When compared with ECG of 15-Feb-2024 18:05, Left posterior fascicular block is now Present Incomplete right bundle branch block is no longer Present Borderline criteria for Inferior infarct are now Present Referred By: Generic ED Physician Electronically Signed By: JESSICA ROJO MD
[2024-08-06] MEDS: 0.9 % Sodium Chloride 1,000 ML 999 ML IV ×2 (06:02)
[2024-08-06] MEDS: LORazepam 2 MG/ML VIAL IVPUSH ×3 (06:11→07:21)
[2024-08-06] MEDS: Acetaminophen 1,000 MG/100 ML PIGGYBACK 400 MG IV (06:18)
[2024-08-06] MEDS: Thiamine HCL 500 MG in 0.9 % Sodium Chloride 100 ML 210 MG IV (06:20)
[2024-08-06] MEDS: Piperacillin Sodium/Tazobactam 3.375 GM in 0.9 % Sodium Chloride 50 ML IV (06:30)
[2024-08-06 06:36] LABS: Glucose, Whole Blood 200 mg/dL (60-115)
[2024-08-06 06:36] LABS: Glucose, Whole Blood 182 mg/dL (60-115)
[2024-08-06 06:37] LABS: Basophils Percent Auto 0.3 % (0-2); Eosinophils Percent Auto 0.1 % (0-4); Hematocrit 35.1 % (42.0-52.0); Hemoglobin 12.9 g/dl (14.0-18.0); Imm Gran Abs Auto 0.14 X10*3/uL (0.00-0.03); Lymphocytes Absolute Auto 0.6 X10*3/uL (1.2-4.9); Lymphocytes Percent Auto 4.6 % (20-40); MANUAL DIFF FLAG SCAN; Mean Corpuscular HGB Conc 36.8 g/dl (31.0-36.0); Mean Corpuscular Hemoglobin 36.8 pg (27.0-33.0); Monocytes Absolute Auto 1.7 X10*3/uL (0.1-1.2); Monocytes Percent Auto 12.9 % (2-11); Neutrophils Absolute Auto 10.8 x10*3/uL (2.0-8.3); Neutrophils Percent Auto 81.1 % (45-73); PLT CLUMP 1; Red Blood Count 3.51 X10*6/uL (4.60-5.80); Red Cell Distribution Width 13.2 % (11.0-16.0); SCAN SMEAR FLAG 1
--- NOTE | 2024-08-06 06:37 | PC.NURSE ---
pt biba from home. EMS reports that Mom called in reporting she heard pt fall, unknown head strike. She states pt has a history of seizures. En route to ED EMS reports pt had a two minute seizure and then became catatonic. 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 Chart notes history of ETOH abuse. PT eyes pinpoint, skin is cold dry and cyanotic, VS- 100.5 rectal temp, 147/113 bp, 149 pulse, rr 18, 100% RA. on tele sinus tach. POC 200 EMS iv placed in left hand, additional 20g iv placed in left wrist. PT changed over into hospital gown provider notified of pt vitals. Sepsis protocol initiated. ekg completed, labs drawn, cultures drawn, fluids infusing, antibiotic administered. PT is disoriented but having periods of appropriate responses. PT also found to be chewing cords, using finger gestures as he was smoking cigarettes, and attempting to use entry level lab technician Jose A's thumb to suck as though it was a bottle.PT denies drug use. states he has been trying to stop drinking- he used to drink 6 pints a day, but was not able to recall how much he drank today or when his last drink was. Awaiting imaging at this time.
[2024-08-06 06:39] LABS: White Blood Count 13.4 X10*3/uL (4.8-10.8)
[2024-08-06 06:47] LABS: Troponin-I High Sensitivity 6.8 ng/L (<3.5-35.0)
[2024-08-06 06:51] LABS: Lactic Acid 12.2 mmol/L (0.5-2.0)
[2024-08-06 06:57] LABS: Platelet Count 128 X10*3/uL (160-400)
[2024-08-06 06:58] LABS: Alanine Aminotransferase 43 U/L (0-40); Albumin Level 4.1 g/dL (3.5-5.0); Alkaline Phosphatase 88 U/L (39-117); Anion Gap 30 (12-20); Aspartate Amino Transferase 93 U/L (5-37); Bilirubin Total 1.9 mg/dL (0.0-1.0); Blood Urea Nitrogen 11 mg/dL (9-16); Calcium 8.1 mg/dL (8.4-10.2); Carbon Dioxide 17 mmol/L (22-29); Chloride 94 mmol/L (96-108); Creatinine Clr Calc Pharmacy 66.8; Estimated Glomerular Filt Rate > 60; Ethanol < 10 mg/dL; Glucose Random 178 mg/dL (60-115); Potassium 2.4 mmol/L (3.3-5.1); SLIDE REVIEW VERIFIED; Sodium 139 mmol/L (135-145); Total Protein 7.6 g/dL (6.5-8.0)
--- NOTE | 2024-08-06 07:01 | PC.NURSE ---
left wrist IV line infiltration. line discontinued
[2024-08-06] MEDS: Potassium Chloride/H20 10 MEQ/100 ML PIGGYBACK 100 MEQ IV ×11 (07:28→23:23)
--- NOTE | 2024-08-06 07:28 | ED_ITS ---
HPI - Seizure General Chief Complaint: Seizure Stated Complaint: seizure and catatonic for 2 min Time Seen by Provider: 08/06/24 05:59 Source: EMS Mode of arrival: EMS Limitations: altered mental status History of Present Illness ED Provider: HPI Narrative: Patient's history of alcohol use had a unwitnessed fall at home mom saw him having seizure lasted only for few minutes patient is very tremulous tachycardic on arrival with visual hallucinations noticed to have temperature of 100.5 degrees right shoulder swelling+ history of similar episode on 02/15/2024 for syncope Related Data Allergies Allergy/AdvReac Type Severity Reaction Status Date / Time No Known Allergies Allergy Verified 08/06/24 06:06 Review of Systems 2 Review of Systems: Yes Unobtainable due to mental status PMFSH Past Medical History Medical History Syncope Back pain Anemia Numbness and tingling in left arm Insomnia Chest pain Bulging lumbar disc Surgical History History of carpal tunnel surgery of right wrist H/O arthroscopy of left knee Social History Social History Household Members: Family Housing: House Are you a primary day care home provider to a significant other at home: No Do you presently have visiting nurse or other home services: No Alcohol intake: current Alcohol intake frequency: 3 or more drinks per day Alcohol type: beer Patient Tobacco Use Status: Current everyday Tobacco user Tobacco use type: Cigarette Cigarette Packs Per Day: 2 Cigarettes Per Day: 40.0 Years Smoked: 35 Smoked in Last 30 Days: Yes Use of substances other than those prescribed or required for medical reasons: No Do you have a plan to hurt others: No Plan service: No 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al status: unemployed 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 Physical Exam 2 Vital Signs: Vital Signs: Last Vital Signs Temp 100.5 F H 08/06/24 05:52 Pulse 156 H 08/06/24 05:52 Resp 18 08/06/24 05:52 BP 147/113 H 08/06/24 05:52 BMI result Body Mass Index 24.3 Appearance: Confused. Tremulous Eyes: PERRLA, No Nystagmus ENT: Pharynx normal. Oral Mucosa Dry no tongue bite Neck: Normal inspection. Neck supple. CVS: Tachycardic no murmur rub or gallop Pulses normal. Respiratory: No respiratory distress. Equal air entry bilateral, no wheezing/rales/rhonchi Abdomen: Soft and nontender. Bowel sounds are present, no mass palpable, no CVA tenderness Skin: Skin warm and dry. Normal skin color. Normal skin turgor. Extremities: No lower extremity edema. No calf tenderness right shoulder swollen painful to touch Neuro: Confused and tremulous with visual hallucination moving all 4 extremities Medications Administered Generic Name Dose Route Start Last Admin Trade Name Freq PRN Reason Stop Dose Admin Potassium Chloride 10 meq in 100 mls @ 100 mls/hr 08/06/24 07:15 08/06/24 07:28 Potassium Chloride/H20 IV 08/06/24 09:14 100 mls/hr Q1H JOHNATHAN Administration Lactated Ringer's 1,000 mls @ 999 mls/hr 08/06/24 07:30 08/06/24 07:33 Lr IV 08/06/24 08:30 999 mls/hr .Q1H1M JOHNATHAN Administration Discontinued Medications Generic Name Dose Route Start Last Admin Trade Name Freq PRN Reason Stop Dose Admin Sodium Chloride 1,000 mls @ 999 mls/hr 08/06/24 06:01 08/06/24 06:02 Ns IV 08/06/24 07:01 999 mls/hr .Q1H1M ONE Administration Sodium Chloride 1,000 mls @ 999 mls/hr 08/06/24 06:02 08/06/24 06:02 Ns IV 08/06/24 07:02 999 mls/hr .Q1H1M ONE Administration Acetaminophen 1,000 mg in 100 mls @ 400 mls/hr 08/06/24 06:02 08/06/24 06:55 Ofirmev IV 08/06/24 06:16 Infused ONCE ONE Infusion Thiamine HCl 500 mg/ Sodium 105 mls @ 210 mls/hr 08/06/24 06:04 08/06/24 06:58 Chloride IV 08/06/24 06:33 Infused ONCE ONE Infusion Piperacillin Sod/Tazobactam 50 mls @ 100 mls/hr 08/06/24 06:20 08/06/24 06:30 Sod 3.375 gm/ Sodium Chloride IV 08/06/24 06:49 100 mls/hr ONCE ONE Administration Lorazepam 2 mg 08/06/24 06:01 08/06/24 06:11 Lorazepam 2 Mg/Ml Vial IVPUSH 08/06/24 06:02 2 mg ONCE ONE Administration Lorazepam 2 mg 08/06/24 06:23 08/06/24 06:33 Lorazepam 2 Mg/Ml Vial IVPUSH 08/06/24 06:24 2 mg ONCE ONE Administration Lorazepam 2 mg 08/06/24 07:09 08/06/24 07:21 Lorazepam 2 Mg/Ml Vial IVPUSH 08/06/24 07:10 2 mg ONCE ONE Administration Medical Decision Making Medical Decision Making [facility] Narrative: Patient with alcohol withdrawal seizure and delirium in DTs was given with anion gap metabolic acidosis started on IV fluids IV Ativan and phenobarb protocol started will get head CT and C-spine and shoulder accident noted to have low- grade fever will give prophylactic antibiotics patient has received IV fluids more than 30 cc/kilogram and IV antibiotics IV potassium was replaced magnesium and time and were also given Patient's may need to go to ICU on Precedex/Ativan drip CT scans and x-rays are pending Patient is signed out Dr. Avina for further management Differential Diagnosis Differential Diagnoses: The differential diagnosis associated with the presentation includes Alcohol withdrawal seizure/DTs Lab Data [facility] Lab Attestation statement: I reviewed the patient's lab results. 08/06/24 06:19 08/06/24 06:19 Labs: Lab Results 08/06/24 08/06/24 08/06/24 Range/Units 05:48 06:19 06:29 WBC 13.4 H (4.8-10.8) X10*3/uL RBC 3.51 L (4.60-5.80) X10*6/uL Hgb 12.9 L (14.0-18.0) g/dl Hct 35.1 L (42.0-52.0) % MCV 100.0 H (80.0-98.0) fL MCH 36.8 H (27.0-33.0) pg MCHC 36.8 H (31.0-36.0) g/dl RDW 13.2 (11.0-16.0) % Plt Count 128 L D (160-400) X10*3/uL MPV Not Reportable Immature Gran % (Auto) 1.0 H (0.0-0.4) % Neut % (Auto) 81.1 H (45-73) % Lymph % (Auto) 4.6 L (20-40) % Wake % (Auto) 12.9 H (2-11) % Eos % (Auto) 0.1 (0-4) % Baso % (Auto) 0.3 (0-2) % Lymph # (Auto) 0.6 L (1.2-4.9) X10*3/uL Wake # (Auto) 1.7 H (0.1-1.2) X10*3/uL Eos # (Auto) 0.0 (0.0-0.4) X10*3/uL Baso # (Auto) 0.0 (0.0-0.2) X10*3/uL Abs Immat Gran (auto) 0.14 H (0.00-0.03) X10*3/uL Absolute Neuts (auto) 10.8 H (2.0-8.3) x10*3/uL Absolute Nucleated RBC 0.000 (0.0-0.012) X10*3/uL Nucleated RBC % (auto) 0.0 (0.0-0.2) /100WBC Smear Tech's Comments VERIFIED Sodium 139 (135-145) mmol/L Potassium 2.4 L* (3.3-5.1) mmol/L Chloride 94 L (96-108) mmol/L Carbon Dioxide 17 L (22-29) mmol/L Anion Gap 30 H (12-20) BUN 11 (9-16) mg/dL Creatinine 1.25 (0.5-1.4) mg/dL Estim Creat Clear Calc 66.8 Estimated GFR > 60 POC Glucose 200 H 182 H (60-115) mg/dL Random Glucose 178 H (60-115) mg/dL Lactic Acid 12.2 H* (0.5-2.0) mmol/L Calcium 8.1 L (8.4-10.2) mg/dL Total Bilirubin 1.9 H (0.0-1.0) mg/dL AST 93 H (5-37) U/L ALT 43 H (0-40) U/L Alkaline Phosphatase 88 (39-117) U/L Troponin I High Sens 6.8 D (<3.5-35.0) ng/L Total Protein 7.6 (6.5-8.0) g/dL Albumin 4.1 (3.5-5.0) g/dL Ethyl Alcohol < 10 mg/dL Independent Interpretation I performed an independent interpretation of an: EKG Interpretation: Sinus tachycardia heart rate of 143 beats per minute normal intervals normal axis no acute ST elevation Critical Care Time Critical Care Time Critical Care Time: Yes Total Critical Care Time: 60 Attestation: The patient was critically ill with a high probability of imminent or life threatening deterioration. I spent greater than ?65??minutes of discontinuous time evaluating the patient,delivering critical care at the bedside, discussing and evaluating pertinent data with consultants. Critical care time does not include time spent performing separately billable procedures or teaching. Total time spent performing critical care was 60???minutes. Discharge Plan Discharge Clinical Impression: Alcohol withdrawal seizure with delirium, Metabolic acidosis, increased anion gap Patient Disposition: Still a Patient Print Language: Brazilian
[2024-08-06] MEDS: Lactated Ringers 1,000 ML 999 ML IV (07:33)
[2024-08-06] MEDS: PHENobarbitaL sodium 130 MG/ML IM ONCE 274 MG IM (07:43)
[2024-08-06] MEDS: Magnesium Sulfate/H2O 2 GM/50 ML PIGGYBACK IV ×2 (07:47→21:18)
[2024-08-06 08:25] LABS: Reflex Lactate? Lactic Acid Added
[2024-08-06] MEDS: dexmedeTOMIDidine HCL/NS 400 MCG/100 ML INFUS..BTL 17.78 MCG IVCONT ×3 (08:58→19:31)
[2024-08-06 09:17] LABS: Amphetamine Screen Urine Not Detected (Not Detect); Barbiturates, Urine Not Detected (Not Detect); Benzodiazepines Screen Urine Not Detected (Not Detect); Buprenorphine Scr Not Detected (Not Detect); Cannabinoid Screen Urine Not Detected (Not Detect); Cocaine Screen Urine Not Detected (Not Detect); Fentanyl, urine Not Detected (Not Detect); Methadone Screen, Urine Not Detected (Not Detect); Opiate Screen Urine Not Detected (Not Detect); Oxycodone Screen Urine Not Detected (Not Detect); Phencyclidine Screen Urine Not Detected (Not Detect)
--- NOTE | 2024-08-06 09:22 | PC.NURSE ---
assumed care of pt at 700. at that time pt had 1 EMS line (20g) in left hand. pt agitated, combative, confused. alert, sometimes saying words which are nonsensical and mumbly. 2 US guided IVs established by Dr. Avina. 18g in bilat upper arms. Per MD, start precidex gtt - infusing through IV in left upper arm.
--- NOTE | 2024-08-06 09:30 | PC.NURSE ---
pt right shoulder is significantly swollen and bruised. XR taken.
--- NOTE | 2024-08-06 09:43 | PM.CNOR ---
History of Present Illness HPI Consult date: 08/06/24 Chief complaint: seizure and catatonic for 2 min Narrative: HPI obtained from the ED note as patient is not arousable Patient's history of alcohol use had a unwitnessed fall at home mom saw him having seizure lasted only for few minutes patient is very tremulous tachycardic on arrival with visual hallucinations noticed to have temperature of 100.5 degrees right shoulder swelling+ history of similar episode on 02/15/2024 for syncope. Patient was signed out to me 07:00 he presented with a with alcohol withdrawal seizure he is altered, he has metabolic derangement, lactic acidosis, hypomagnesemia, severe hypokalemia, anion gap metabolic acidosis, he is tachycardic does not follow command, x-ray of the right shoulder showed fracture of the right shoulder. Poor IV access under ultrasound-guided cannulated the left brachial vein with a long 18 catheter with good flow good flash. CT scan of the head he is pending, he received 6 mg of IV lorazepam phenobarbital protocol IV K IV magnesium, LR anticipate ICU admission may need an airway if further deterioration Pocedure : Under US cannulated with 18 kris catheter long left brachial vein good flush good blood return Review of Systems Review of Systems: Yes all other systems are reviewed and are negative PMFSH Past Medical History Medical History Syncope Back pain Anemia Numbness and tingling in left arm Insomnia Chest pain Bulging lumbar disc Surgical History Surgical History History of carpal tunnel surgery of right wrist H/O arthroscopy of left knee Social History Social History Household Members: Family Housing: House Are you a primary child care associate teacher to a significant other at home: No Do you presently have visiting nurse or other home services: No Alcohol intake: current Alcohol intake frequency: 3 or more drinks per day Alcohol type: beer Patient Tobacco Use Status: Current everyday Tobacco user Tobacco use type: Cigarette Cigarette Packs Per Day: 2 Cigarettes Per Day: 40.0 Years Smoked: 35 Smoked in Last 30 Days: Yes Use of substances other than those prescribed or required for medical reasons: No Advance Directives: No Advance Directives Information Provided: No Do you have a plan to hurt others: No Plan service: No 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al status: unemployed 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 Allergies Allergy/AdvReac Type Severity Reaction Status Date / Time No Known Allergies Allergy Verified 08/06/24 06:06 Active Medications: Current Medications Dexmedetomidine HCl (Precedex) 400 mcg in 100 mls @ 0 mls/hr IVCONT .Q0M JOHNATHAN; Protocol Last Titration: 08/06/24 09:20 Dose: 1.2 mcg/kg/hr, 21.33 mls/hr Pharmacy Consult (Consult Rx Etoh Phenob Im/Po) 1 each MISCELLANE ONCE PRN; Protocol PRN Reason: Consult order Phenobarbital (Phenobarbital 15 Mg Tablet) 45 mg PO BID JOHNATHAN; Protocol Stop: 08/08/24 09:01 Phenobarbital (Phenobarbital 30 Mg Tablet) 30 mg PO BID JOHNATHAN; Protocol Stop: 08/10/24 09:01 Phenobarbital (Phenobarbital 30 Mg Tablet) 30 mg PO DAILY JOHNATHAN; Protocol Stop: 08/12/24 09:01 Phenobarbital Sodium (Phenobarbital Sodium 130 Mg/Ml Vial Im Q3hx2) 205 mg IM Q3H JOHNATHAN; Protocol Stop: 08/06/24 14:01 Home Medications ?Medication ?Instructions ?Recorded ?Confirmed ?Last Taken ?Type No Known Home Meds 08/06/24 08/06/24 Unknown History Physical Exam Vital Signs: Vital Signs: Last Vital Signs Temp 100.5 F H 08/06/24 05:52 Pulse 126 H 08/06/24 09:20 Resp 20 08/06/24 09:20 BP 158/99 H 08/06/24 08:58 Pulse Ox 99 08/06/24 09:20 O2 Del Method Room Air 08/06/24 07:50 BMI result Body Mass Index 24.0 Extrem: Other: Right shoulder: Ecchymosis developing - patient is unable to participate in any physical exam, he is unarousable at this time. Capillary refill is brisk and radial pulse intact. Results Labs 08/06/24 06:19 08/06/24 06:19 Labs: Abnormal lab results 08/06/24 08/06/24 08/06/24 Range/Units 05:48 06:19 06:29 WBC 13.4 H (4.8-10.8) X10*3/uL RBC 3.51 L (4.60-5.80) X10*6/uL Hgb 12.9 L (14.0-18.0) g/dl Hct 35.1 L (42.0-52.0) % MCV 100.0 H (80.0-98.0) fL MCH 36.8 H (27.0-33.0) pg MCHC 36.8 H (31.0-36.0) g/dl Plt Count 128 L D (160-400) X10*3/uL Immature Gran % (Auto) 1.0 H (0.0-0.4) % Neut % (Auto) 81.1 H (45-73) % Lymph % (Auto) 4.6 L (20-40) % Daggett % (Auto) 12.9 H (2-11) % Lymph # (Auto) 0.6 L (1.2-4.9) X10*3/uL Daggett # (Auto) 1.7 H (0.1-1.2) X10*3/uL Abs Immat Gran (auto) 0.14 H (0.00-0.03) X10*3/uL Absolute Neuts (auto) 10.8 H (2.0-8.3) x10*3/uL Potassium 2.4 L* (3.3-5.1) mmol/L Chloride 94 L (96-108) mmol/L Carbon Dioxide 17 L (22-29) mmol/L Anion Gap 30 H (12-20) POC Glucose 200 H 182 H (60-115) mg/dL Random Glucose 178 H (60-115) mg/dL Lactic Acid 12.2 H* (0.5-2.0) mmol/L Calcium 8.1 L (8.4-10.2) mg/dL Total Bilirubin 1.9 H (0.0-1.0) mg/dL AST 93 H (5-37) U/L ALT 43 H (0-40) U/L H & H 03/23/25 Range/Units 06:19 Hgb 12.9 L (14.0-18.0) g/dl Hct 35.1 L (42.0-52.0) % All other labs normal. Assessment and Plan (1) Fracture, humerus, proximal: Qualifiers: Encounter type: initial encounter Fracture alignment: displaced Fracture type: closed Laterality: right Status: Acute Sling RUE NWB RUE Patient acidodic transferring to the ICU Possible OR reduction once patient is more stable (2) Alcohol withdrawal seizure with delirium: Status: Acute Procedures Date of Service Date of Service: 08/06/24
[2024-08-06 10:31] LABS: Anion Gap 21 (12-20); Blood Urea Nitrogen 8 mg/dL (9-16); Calcium 7.6 mg/dL (8.4-10.2); Carbon Dioxide 23 mmol/L (22-29); Chloride 97 mmol/L (96-108); Creatinine Clr Calc Pharmacy 112.9; Estimated Glomerular Filt Rate > 60; Glucose Random 113 mg/dL (60-115); Lactic Acid 3.6 mmol/L (0.5-2.0); Potassium 2.5 mmol/L (3.3-5.1); Sodium 138 mmol/L (135-145)
--- NOTE | 2024-08-06 10:47 | PHA.MEDREC ---
Pharmacy Consult ? Medication Reconciliation Pharmacy has completed the medication reconciliation. Called [facility] to confirm pt is not on any meds.
--- NOTE | 2024-08-06 11:10 | PM.CCHP ---
History of Present Illness Date of Service: 08/06/24 Chief Complaint: Status post fall, delirium tremens, shoulder fracture 54-year-old gentleman with underlying alcohol abuse admitted with delirium tremens after suffering a mechanical fall that right shoulder fracture. Patient requiring initiation Precedex drip and admission to the intensive care unit for close monitoring. Orthopedic service has been consulted. Review of Systems Review of Systems: Yes Unobtainable due to mental status PMFSH Past Medical History Medical History Syncope Back pain Anemia Numbness and tingling in left arm Insomnia Chest pain Bulging lumbar disc Surgical History Surgical History History of carpal tunnel surgery of right wrist H/O arthroscopy of left knee Social History Social History Household Members: Family Housing: House Are you a primary infant childcare provider to a significant other at home: No Do you presently have visiting nurse or other home services: No Alcohol intake: current Alcohol intake frequency: 3 or more drinks per day Alcohol type: beer Patient Tobacco Use Status: Current everyday Tobacco user Tobacco use type: Cigarette Cigarette Packs Per Day: 2 Cigarettes Per Day: 40.0 Years Smoked: 35 Smoked in Last 30 Days: Yes Use of substances other than those prescribed or required for medical reasons: No Advance Directives: No Advance Directives Information Provided: No Do you have a plan to hurt others: No Plan service: No 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al status: unemployed 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 Allergies Allergy/AdvReac Type Severity Reaction Status Date / Time No Known Allergies Allergy Verified 08/06/24 06:06 Active Medications: Current Medications Heparin Sodium (Porcine) (Heparin Sodium,Porcine 5,000 Unit/Ml Vial) 5,000 unit SUBCUT Q8H JOHNATHAN Dexmedetomidine HCl (Precedex) 400 mcg in 100 mls @ 0 mls/hr IVCONT .Q0M JOHNATHAN; Protocol Last Titration: 08/06/24 09:54 Dose: 1 mcg/kg/hr, 17.78 mls/hr Potassium Chloride (Potassium Chloride/H20) 10 meq in 100 mls @ 100 mls/hr IV Q1H JOHNATHAN Stop: 08/06/24 17:14 Pharmacy Consult (Consult Rx Etoh Phenob Im/Po) 1 each MISCELLANE ONCE PRN; Protocol PRN Reason: Consult order Phenobarbital (Phenobarbital 15 Mg Tablet) 45 mg PO BID [facility]; Protocol Stop: 08/08/24 09:01 Phenobarbital (Phenobarbital 30 Mg Tablet) 30 mg PO BID JOHNATHAN; Protocol Stop: 08/10/24 09:01 Phenobarbital (Phenobarbital 30 Mg Tablet) 30 mg PO DAILY [facility]; Protocol Stop: 08/12/24 09:01 Phenobarbital Sodium (Phenobarbital Sodium 130 Mg/Ml Vial Im Q3hx2) 205 mg IM Q3H JOHNATHAN; Protocol Stop: 08/06/24 14:01 Home Medications ?Medication ?Instructions ?Recorded ?Confirmed ?Last Taken ?Type No Known Home Meds 08/06/24 08/06/24 Unknown History Physical Exam Vital Signs: Vital Signs: Last Vital Signs Temp 100.5 F H 08/06/24 05:52 Pulse 102 H 08/06/24 10:18 Resp 14 08/06/24 10:18 BP 124/75 08/06/24 10:18 Pulse Ox 100 08/06/24 10:18 O2 Del Method Room Air 08/06/24 10:18 BMI result Body Mass Index 24.0 Const: General: no acute distress and lethargic (Arousable, intermittently agitated) Orientation/consciousness: lethargic (Arousable, intermittently agitated) Eyes: Sclerae: sclerae normal EOM: EOMs intact bilaterally Neck: Neck: Yes no lymphadenopathy, Yes trachea midline and Yes supple Resp: Effort & Inspection: normal respiratory effort and no respiratory distress Auscultation: clear to auscultation bilaterally Cardio: Rate: regular rate Rhythm: regular rhythm Heart sounds: no gallops, no murmurs and no rubs GI: Palpation (GI): Soft to palpation and Other GI palpation findings present ( Nontender) Auscultation: normal bowel sounds Extrem: General: Yes no pedal edema, No clubbing and No cyanosis Results Labs 08/06/24 06:19 08/06/24 09:29 Labs: Laboratory Results - last 24 hr 08/06/24 08/06/24 08/06/24 05:48 06:19 06:29 MCV 100.0 H MCH 36.8 H MCHC 36.8 H RDW 13.2 Plt Count 128 L D MPV Not Reportable Immature Gran % (Auto) 1.0 H Neut % (Auto) 81.1 H Lymph % (Auto) 4.6 L O'Brien % (Auto) 12.9 H Eos % (Auto) 0.1 Baso % (Auto) 0.3 Lymph # (Auto) 0.6 L O'Brien # (Auto) 1.7 H Eos # (Auto) 0.0 Baso # (Auto) 0.0 Abs Immat Gran (auto) 0.14 H Absolute Neuts (auto) 10.8 H Absolute Nucleated RBC 0.000 Nucleated RBC % (auto) 0.0 Smear Tech's Comments VERIFIED Anion Gap 30 H Estim Creat Clear Calc 66.8 Estimated GFR > 60 POC Glucose 200 H 182 H Random Glucose 178 H Lactic Acid 12.2 H* Calcium 8.1 L Total Bilirubin 1.9 H AST 93 H ALT 43 H Alkaline Phosphatase 88 Total Protein 7.6 Albumin 4.1 Urine Opiates Screen Ur Buprenorphine Scrn Ur Oxycodone Screen Urine Methadone Screen Urine Fentanyl Screen Ur Barbiturates Screen Ur Phencyclidine Scrn Ur Amphetamines Screen U Benzodiazepines Scrn Urine Cocaine Screen U Marijuana (THC) Screen Ethyl Alcohol < 10 08/06/24 08/06/24 09:01 09:29 MCV MCH MCHC RDW Plt Count MPV Immature Gran % (Auto) Neut % (Auto) Lymph % (Auto) O'Brien % (Auto) Eos % (Auto) Baso % (Auto) Lymph # (Auto) O'Brien # (Auto) Eos # (Auto) Baso # (Auto) Abs Immat Gran (auto) Absolute Neuts (auto) Absolute Nucleated RBC Nucleated RBC % (auto) Smear Tech's Comments Anion Gap 21 H Estim Creat Clear Calc 112.9 Estimated GFR > 60 POC Glucose Random Glucose 113 Lactic Acid 3.6 H* Calcium 7.6 L D Total Bilirubin AST ALT Alkaline Phosphatase Total Protein Albumin Urine Opiates Screen Not Detected Ur Buprenorphine Scrn Not Detected Ur Oxycodone Screen Not Detected Urine Methadone Screen Not Detected Urine Fentanyl Screen Not Detected Ur Barbiturates Screen Not Detected Ur Phencyclidine Scrn Not Detected Ur Amphetamines Screen Not Detected U Benzodiazepines Scrn Not Detected Urine Cocaine Screen Not Detected U Marijuana (THC) Screen Not Detected Ethyl Alcohol Assessment and Plan (1) Shoulder fracture, right: Status: Acute (2) Delirium tremens: Status: Acute Plan Assessment: 54-year-old gentleman admitted after mechanical fall resulting in shoulder fracture also with underlying delirium tremens requiring sedative drips Plan: Neuro: Delirium tremens, continue to titrate off sedative drips as tolerated. Cardiac: No acute issues. Pulmonary: No acute issues. Renal: Anion gap metabolic acidosis secondary to elevated lactate, improving with IV fluids. Non oliguric. Continue to monitor renal indices and urine output. Endo: No acute issues. GI: No acute issues. ID: No acute issues Heme/Onc: No acute issues. Psych: No acute issues. Miscellaneous: Shoulder fracture, orthopedic surgery consulted. Prophylaxis: Heparin Diet: NPO Critical care time spent: 45 minutes
[2024-08-06 11:31] LABS: Reflex Lactate? Lactic Acid Added
[2024-08-06 11:45] LABS: ~Lactic Acid-LAB USE ONLY 1.4 mmol/L (0.5-2.0)
[2024-08-06] MEDS: Heparin Sodium,Porcine 5,000 UNIT/ML VIAL 5000 UNIT SUBCUT ×2 (12:13→20:05)
[2024-08-06] MEDS: PHENobarbitaL sodium 130 MG/ML VIAL IM Q3Hx2 205 MG IM ×2 (12:13→15:14)
[2024-08-06] MEDS: Norepinephrine Bitartrate/D5W 8 MG/250 ML PLAST..BAG 6.72 MG IVCONT (14:30)
--- NOTE | 2024-08-06 17:39 | HE.ICUCC ---
ICU Critical Care Nursing Note ICU Day #:1 Vent Day #:0 Neuro: Patient placed on Precedex gtt in ER for increased agitation, titrated down to maintain patient calm but make more alert, See MAR for details, currently sleepy but easily arousable and following simple commands. Cardiac: SR on Tele, Map decreased and Levophed started, titrated as per MAR. Resp: Lung sounds Clear and 99% on room air. GI/: Currently NPO, male purewick placed, no urine noted after 5hours on unit, BS 352mls noted, patient encouraged to try to void unable after multiple tries, rechecked BS 373, straight cath for 400cc, due to void 2330 Integumentary/Musculoskeletal: bruising to right knee, right shoulder and left foot. Psychosocial (family etc.): brother in to see patient and other brother called for update
[2024-08-06] MEDS: levETIRAcetam in NaCl (iso-os) 500 MG/100 ML PIGGYBACK 400 MG IV (20:19)
[2024-08-06 20:37] LABS: Albumin Level 3.4 g/dL (3.5-5.0); Anion Gap 18 (12-20); Blood Urea Nitrogen 11 mg/dL (9-16); Carbon Dioxide 22 mmol/L (22-29); Chloride 100 mmol/L (96-108); Creatinine Clr Calc Pharmacy 141.6; Estimated Glomerular Filt Rate > 60; Glucose Random 96 mg/dL (60-115); Phosphorus 2.2 mg/dL (2.7-4.5); Potassium 2.2 mmol/L (3.3-5.1); Sodium 138 mmol/L (135-145)
[2024-08-06] MEDS: Calcium Chloride 1 GM/10 ML SYRINGE IVPUSH (21:10)
[2024-08-06] MEDS: Potassium Phosphate/NS 15 MMOL/250 ML PLAST..BAG 62.5 MMOL IV (21:19)
[2024-08-07] VITALS (30 sets, daily range): BP systolic 104–149; BP diastolic 62–93; PULSE 65–82; RESP 12–18; TEMP 36.2–36.4; O2SAT 98–100; BMI 28.3
[2024-08-07] MEDS: Potassium Chloride/H20 10 MEQ/100 ML PIGGYBACK 100 MEQ IV ×11 (00:25→15:09)
[2024-08-07] MEDS: Magnesium Sulfate/D5W 1 GM/100 ML PIGGYBACK IV (00:27)
[2024-08-07] MEDS: dexmedeTOMIDidine HCL/NS 400 MCG/100 ML INFUS..BTL 17.78 MCG IVCONT (00:32)
--- NOTE | 2024-08-07 03:14 | PC.NURSE ---
CARE ASSUMED 7PM...PRECIDEX DRIP 0.6 MCG/KG/HR...PATIENT AWAKE..RESTLESS..PULLINH ON LINES AND RIGHT ARM SLING...PRECIDEX TITRATED BACK UP TO 1.0 MCG/KG/HR WITH GRADUAL RESTFUL EFFECT..RESPIRATIONS EASY..SAO2 98-99% ROOM AIR..MSR..NO ECTOPY..LOW DOSE LEVOPHED PER JUL..MULTIPLE ELECTROLYTE REPLACEMENTS PER JUL. (KCL/KPO4/MGSO4/CALCIUM CHLORIDE). KEPPRA IV Q12H STARTED PER PROVIDER D/T PAST SEIZURE ACTIVITY AT HOME...DROWSY WITH PRECIDEX DRIP..UNABLE TO TAKE PO..PROVIDER AWARE...BLADDER SCANNED 376ml AT 12AM..STRAIGHT HELD PER PROVIDER/TO TREND...VOIDED 300ML 2AM VIA PURWIK EXTERNAL CATHETER..BLADDER SCANNED 108ML POST-VOID...RIGHT ARM REMAINS IN SLING..RIGHT SHOULDER SWOLLEN AND BRUISED..(+) RIGHT RADIAL PALPABLE PULSE
[2024-08-07] MEDS: Heparin Sodium,Porcine 5,000 UNIT/ML VIAL 5000 UNIT SUBCUT ×3 (04:32→19:26)
[2024-08-07] MEDS: dexmedeTOMIDidine HCL/NS 400 MCG/100 ML INFUS..BTL 21.33 MCG IVCONT ×2 (05:35→10:08)
[2024-08-07 05:44] LABS: VBG Base Excess 0.2 mmol/L; VBG HCO3 22 mmol/L (22-26); VBG pCO2 29 mmHg; VBG pH 7.49 (7.32-7.43); VBG pO2 58 mmHg
[2024-08-07 05:55] LABS: Venous Blood Gas Refer to POC result
[2024-08-07 06:05] LABS: Basophils Percent Auto 0.3 % (0-2); Eosinophils Percent Auto 0.3 % (0-4); Hematocrit 26.9 % (42.0-52.0); Hemoglobin 9.7 g/dl (14.0-18.0); Imm Gran Abs Auto 0.08 X10*3/uL (0.00-0.03); Imm Gran Pct Auto 0.7 % (0.0-0.4); Lymphocytes Absolute Auto 1.2 X10*3/uL (1.2-4.9); Lymphocytes Percent Auto 10.1 % (20-40); MANUAL DIFF FLAG SCAN; Mean Corpuscular HGB Conc 36.1 g/dl (31.0-36.0); Mean Corpuscular Hemoglobin 36.7 pg (27.0-33.0); Mean Corpuscular Volume 101.9 fL (80.0-98.0); Mean Platelet Volume 11.4 fL (9.4-12.4); Monocytes Absolute Auto 1.7 X10*3/uL (0.1-1.2); Monocytes Percent Auto 14.6 % (2-11); Neutrophils Absolute Auto 8.8 x10*3/uL (2.0-8.3); Platelet Count 104 X10*3/uL (160-400); Red Blood Count 2.64 X10*6/uL (4.60-5.80); SCAN SMEAR FLAG 1; White Blood Count 11.9 X10*3/uL (4.8-10.8)
[2024-08-07 06:09] LABS: Alanine Aminotransferase 27 U/L (0-40); Albumin Level 3.2 g/dL (3.5-5.0); Alkaline Phosphatase 64 U/L (39-117); Anion Gap 19 (12-20); Aspartate Amino Transferase 63 U/L (5-37); Bilirubin Total 1.3 mg/dL (0.0-1.0); Blood Urea Nitrogen 8 mg/dL (9-16); Calcium 7.6 mg/dL (8.4-10.2); Carbon Dioxide 20 mmol/L (22-29); Chloride 101 mmol/L (96-108); Creatinine Clr Calc Pharmacy 149.9; Estimated Glomerular Filt Rate > 60; Glucose Random 91 mg/dL (60-115); Magnesium 1.5 mg/dL (1.6-2.6); Sodium 138 mmol/L (135-145); Total Protein 6.1 g/dL (6.5-8.0)
[2024-08-07 06:18] LABS: Potassium 2.4 mmol/L (3.3-5.1)
[2024-08-07 07:10] LABS: SLIDE REVIEW VERIFIED
[2024-08-07] MEDS: Albumin Human 25 % 100 ML IV ×2 (08:11→13:26)
[2024-08-07] MEDS: levETIRAcetam in NaCl (iso-os) 500 MG/100 ML PIGGYBACK 400 MG IV (08:11)
[2024-08-07] MEDS: Calcium Gluconate/NaCl,Iso-Osm 1 GM/50 ML PLAST..BAG IV (08:12)
[2024-08-07] MEDS: Magnesium Sulfate/H2O 2 GM/50 ML PIGGYBACK IV (08:12)
--- NOTE | 2024-08-07 08:51 | PM.CCPN ---
Subjective Subjective Date of Service: 08/07/24 Critical Care Time (minutes): 35 Comment: On Precedex drip, no significant agitation Physical Exam Vital Signs: Vital Signs: Last Vital Signs Temp 97.5 F 08/07/24 08:00 Pulse 67 08/07/24 08:00 Resp 15 08/07/24 08:00 BP 128/79 08/07/24 08:00 Pulse Ox 100 08/07/24 08:00 O2 Del Method Room Air 08/07/24 08:00 BMI result Body Mass Index 28.3 General: In my acute distress, tired appearing Nutritional Appearance: well nourished and normal weight Eyes: appearance normal, both eyes and all related structures; Alignment and Position: alignment normal and position normal Neck: No lymphadenopathy, no thyromegaly Resp: bilateral air entry equal, no added sounds present Cardio: Regular rate, regular rhythm; Heart sounds: S1 normal heart sound present and S2 normal heart sound present GI: soft, nontender, no guarding, no hepatosplenomegaly : bladder normal to inspection, bladder normal to palpation, no renal angle tenderness Skin: no rashes or lesions noted and elasticity normal Neuro: Confused, moves all extremities Objective Data Labs 08/07/24 05:40 08/07/24 05:40 Labs: Laboratory Results - last 24 hr 08/06/24 08/06/24 08/06/24 09:01 09:29 11:21 WBC RBC Hgb Hct MCV MCH MCHC RDW Plt Count MPV Immature Gran % (Auto) Neut % (Auto) Lymph % (Auto) Jewell % (Auto) Eos % (Auto) Baso % (Auto) Lymph # (Auto) Jewell # (Auto) Eos # (Auto) Baso # (Auto) Abs Immat Gran (auto) Absolute Neuts (auto) Absolute Nucleated RBC Nucleated RBC % (auto) Smear Tech's Comments VBG pH VBG pCO2 VBG pO2 VBG HCO3 VBG O2 Saturation VBG Base Excess Sodium 138 Potassium 2.5 L* Chloride 97 Carbon Dioxide 23 Anion Gap 21 H BUN 8 L Creatinine 0.74 Estim Creat Clear Calc 112.9 Estimated GFR > 60 Random Glucose 113 Lactic Acid 3.6 H* Lactic Acid F/U @ 2Hr 1.4 Calcium 7.6 L D Phosphorus Magnesium Total Bilirubin AST ALT Alkaline Phosphatase Total Protein Albumin Urine Opiates Screen Not Detected Ur Buprenorphine Scrn Not Detected Ur Oxycodone Screen Not Detected Urine Methadone Screen Not Detected Urine Fentanyl Screen Not Detected Ur Barbiturates Screen Not Detected Ur Phencyclidine Scrn Not Detected Ur Amphetamines Screen Not Detected U Benzodiazepines Scrn Not Detected Urine Cocaine Screen Not Detected U Marijuana (THC) Screen Not Detected 08/06/24 08/07/24 08/07/24 19:50 05:40 05:41 WBC 11.9 H RBC 2.64 L D Hgb 9.7 L D Hct 26.9 L D MCV 101.9 H MCH 36.7 H MCHC 36.1 H RDW 13.0 Plt Count 104 L MPV 11.4 Immature Gran % (Auto) 0.7 H Neut % (Auto) 74.0 H Lymph % (Auto) 10.1 L Jewell % (Auto) 14.6 H Eos % (Auto) 0.3 Baso % (Auto) 0.3 Lymph # (Auto) 1.2 Jewell # (Auto) 1.7 H Eos # (Auto) 0.0 Baso # (Auto) 0.0 Abs Immat Gran (auto) 0.08 H Absolute Neuts (auto) 8.8 H Absolute Nucleated RBC 0.000 Nucleated RBC % (auto) 0.0 Smear Tech's Comments VERIFIED VBG pH 7.49 H VBG pCO2 29 VBG pO2 58 VBG HCO3 22 VBG O2 Saturation 87.0 VBG Base Excess 0.2 Sodium 138 138 Potassium 2.2 L* 2.4 L* Chloride 100 101 Carbon Dioxide 22 20 L Anion Gap 18 19 BUN 11 8 L Creatinine 0.59 0.61 Estim Creat Clear Calc 141.6 149.9 Estimated GFR > 60 > 60 Random Glucose 96 91 Lactic Acid Lactic Acid F/U @ 2Hr Calcium 7.0 L D 7.6 L D Phosphorus 2.2 L 3.0 Magnesium 1.0 L* 1.5 L Total Bilirubin 1.3 H AST 63 H ALT 27 Alkaline Phosphatase 64 Total Protein 6.1 L Albumin 3.4 L 3.2 L Urine Opiates Screen Ur Buprenorphine Scrn Ur Oxycodone Screen Urine Methadone Screen Urine Fentanyl Screen Ur Barbiturates Screen Ur Phencyclidine Scrn Ur Amphetamines Screen U Benzodiazepines Scrn Urine Cocaine Screen U Marijuana (THC) Screen Microbiology Microbiology Results: Microbiology 08/06/24 06:19 Blood - Venous Blood Culture - Preliminary No growth after 24 hours. 08/06/24 06:19 Blood - Venous Blood Culture - Preliminary No growth after 24 hours. Progress Note: A&P Assessment and plan (1) Delirium tremens: Status: Acute (2) Hypomagnesemia: Status: Acute (3) Hypokalemia: Status: Acute (4) Metabolic acidosis, increased anion gap: Status: Acute (5) Alcohol withdrawal seizure with delirium: Status: Acute (6) Numbness and tingling in right hand: Status: Acute (7) Acidosis, lactic: Status: Acute Plan Acute encephalopathy possibly due to alcohol withdrawal syndrome On Precedex for anxiolysis, will give IM phenobarb and then taper Precedex Close neurological status monitoring in the ICU every hour continue folate and thiamine for chronic alcoholism continue Keprra for Cardiac: Circulatory Shock: Possibly secondary to medication, Precedex On Levophed support, titrate Levophed to keep map above 65 mm Hg Respiratory: Breathing stable on room air GI: on tube feeds transaminitis: secondary to alcoholic liver disease Acute hypokalemia: Possibly secondary to hypomagnesemia We will replace as per protocol Heme: Chronic anemia, closely monitor H&H, transfuse for hemoglobin less than 7 grams/deciliter Endocrine: Blood sugars under control Sliding scale insulin as needed Infectious disease: Negative pancultures Musculoskeletal: Decubitus ulcer prevention protocol Lines: Peripheral Prophylaxis: heparin, famotidine Quality Stroke Does the patient have a stroke diagnosis?: No VTE Prior VTE?: No VTE Risk Level:: Medical - moderate - high VTE Device Contraindication: Treatment Not Indicated VTE Drug Contraindication: N/A - Med Ordered
--- NOTE | 2024-08-07 09:43 | MHC.CM.PN ---
PT IN ICU, ALTERED MENTAL STATUS AT THIS TIME AND UNABLE TO PARTICIPATE IN CM ASSESSMENT. CM SPOKE WITH BROTHER EPIFANIO ([phone]) WHO WAS ABLE TO ANSWER INTAKE QUESTIONS FOR BROTHER. PT LIVES WITH PARENTS, FUNCTIONALLY INDEPENDENT, USES A CANE PRN. NO SERVICES. NO PCP. NO HCP. DP: HOME, NO SERVICES IS THE GOAL. PT'S FAMILY WILL TRANSPORT WHEN MEDICALLY CLEARED. CM WILL CONTINUE TO FOLLOW FOR ANY CHANGE TO DC PLAN.
[2024-08-07] MEDS: PHENobarbitaL sodium 130 MG/ML VIAL IM ×4 (10:01→22:53)
[2024-08-07] MEDS: Famotidine/PF 20 MG/2 ML VIAL IVPUSH ×2 (10:01→20:32)
[2024-08-07] MEDS: Folic Acid 2 MG in 0.9 % Sodium Chloride 50 ML 100.4 MG IV (10:16)
[2024-08-07] MEDS: dexmedeTOMIDidine HCL/NS 400 MCG/100 ML INFUS..BTL 14.22 MCG IVCONT (14:00)
--- NOTE | 2024-08-07 14:30 | PC.NURSE ---
Addendum entered by Mildred Almaguer RN 08/07/24 16:47: pt was noted to have increased bruising/swelling to R shoulder. MD made aware. ice applied as tolerated. continues to have strong distal pulse. toradol 30 mg given for pain. Original Note: p: alteration in fluid/electrolyte balance i: per nursing care plan e: electrolytes replaced continuously throughout the day. patient received potassium 10 meq x 8 bags. see MAR for rest of electrolyte/albumin replacements. p: alteration in neurological function i: per nursing care plan e: pt drowsy/lethargic but wakes up restless and attempts to displace tubes and lines. precedex drip titrated for RASS as ordered. redirected as needed to maintain patient safety. p: alteration in genitourinary function i: per nursing care plan e: bladder scanned at approximately 1100 for > 500 cc. MD aware. straight cath as needed. DTV @ 1700. p: alteration in musculoskeletal i: per nursing care plan e: right arm remains in sling following R shoulder fracture.
[2024-08-07] MEDS: Ketorolac Tromethamine 15 MG/ML VIAL 30 MG IM (16:44)
--- NOTE | 2024-08-07 18:16 | HO.SKINPHOTO ---
Location: Right shoulder Category: Bruising - s/p mechanical fall with fracture of the right humeral head
[2024-08-07] MEDS: dexmedeTOMIDidine HCL/NS 400 MCG/100 ML INFUS..BTL 26.66 MCG IVCONT ×2 (18:24→21:59)
[2024-08-07] MEDS: Morphine Sulfate 2 MG/ML CARTRIDGE IVPUSH (23:11)
[2024-08-08] VITALS (27 sets, daily range): BP systolic 92–154; BP diastolic 44–79; PULSE 67–82; RESP 13–18; TEMP 36.4–37; O2SAT 95–100; BMI 28.7
[2024-08-08] MEDS: Midazolam HCl 2 MG/2 ML VIAL 4 MG IVPUSH (00:40)
[2024-08-08] MEDS: dexmedeTOMIDidine HCL/NS 400 MCG/100 ML INFUS..BTL 26.66 MCG IVCONT ×7 (01:38→21:05)
[2024-08-08] MEDS: Ketorolac Tromethamine 15 MG/ML VIAL 30 MG IM (02:14)
[2024-08-08] MEDS: PHENobarbitaL sodium 130 MG/ML VIAL IM (02:52)
[2024-08-08] MEDS: Heparin Sodium,Porcine 5,000 UNIT/ML VIAL 5000 UNIT SUBCUT ×3 (03:01→20:05)
[2024-08-08 05:14] LABS: Basophils Percent Auto 0.4 % (0-2); Eosinophils Absolute Auto 0.1 X10*3/uL (0.0-0.4); Eosinophils Percent Auto 0.7 % (0-4); Hematocrit 22.7 % (42.0-52.0); Hemoglobin 8.5 g/dl (14.0-18.0); Imm Gran Abs Auto 0.07 X10*3/uL (0.00-0.03); Imm Gran Pct Auto 0.6 % (0.0-0.4); Lymphocytes Absolute Auto 1.5 X10*3/uL (1.2-4.9); Lymphocytes Percent Auto 13.5 % (20-40); MANUAL DIFF FLAG SCAN; Mean Corpuscular HGB Conc 37.4 g/dl (31.0-36.0); Mean Corpuscular Hemoglobin 37.4 pg (27.0-33.0); Mean Platelet Volume 11.4 fL (9.4-12.4); Monocytes Absolute Auto 1.7 X10*3/uL (0.1-1.2); Monocytes Percent Auto 15.5 % (2-11); Neutrophils Absolute Auto 7.6 x10*3/uL (2.0-8.3); Neutrophils Percent Auto 69.3 % (45-73); Platelet Count 111 X10*3/uL (160-400); Red Blood Count 2.27 X10*6/uL (4.60-5.80); Red Cell Distribution Width 13.1 % (11.0-16.0); SCAN SMEAR FLAG 1
[2024-08-08 05:37] LABS: Alanine Aminotransferase 25 U/L (0-40); Albumin Level 3.4 g/dL (3.5-5.0); Anion Gap 22 (12-20); Aspartate Amino Transferase 66 U/L (5-37); Bilirubin Total 1.4 mg/dL (0.0-1.0); Blood Urea Nitrogen 7 mg/dL (9-16); Calcium 7.5 mg/dL (8.4-10.2); Carbon Dioxide 19 mmol/L (22-29); Chloride 102 mmol/L (96-108); Creatinine Clr Calc Pharmacy 146.1; Estimated Glomerular Filt Rate > 60; Glucose Random 87 mg/dL (60-115); Magnesium 0.9 mg/dL (1.6-2.6); Phosphorus 2.4 mg/dL (2.7-4.5); Potassium 2.5 mmol/L (3.3-5.1); Sodium 140 mmol/L (135-145); Total Protein 5.9 g/dL (6.5-8.0)
[2024-08-08 05:44] LABS: Alkaline Phosphatase 67 U/L (39-117)
[2024-08-08 05:46] LABS: SLIDE REVIEW VERIFIED
[2024-08-08] MEDS: Magnesium Sulfate/H2O 2 GM/50 ML PIGGYBACK IV ×2 (06:04→08:05)
--- NOTE | 2024-08-08 06:21 | PC.NURSE ---
Assumed care of patient at 19:00. Patient seen in the ICU for acute encephalopathy and etoh withdrawal, also s/p fall at home with right humeral neck fx. Pt is A&Ox2 to self and year, consistently disoriented to place and situation. Pt with +visual hallucinations and impulsiveness overnight. On scheduled IV keppra and prn IM phenobarbital per JUL. Seizure precautions in place as well as in-room camera in place to assist with maintaining patient safety. RUE remains NWB in sling. Ice packs applied intermittently as pt tolerated. +radial strong radial pulses bilaterally. No seizure activity noted. Despite precedex infusing at max rate 1.5mcg/kg/hr, patient is still requiring prn IM phenobarbital as well as a 1x versed overnight per PA order due to restlessness, frequently pulling at IV (wrapped for protection), lines, and sling. Nursing plastic tubing insulation supervisor made aware patient requiring very frequent redirecting, with arrangements made for 1:1 sitter for the oncoming shift this morning. Breathing remains even and unlabored without distress. Map maintained >65. NSR 60-70?s on tele. Medicated for pain with 1x 2mg morphine and prn toradol per PA. Bladder scanned for post-void residual to ensure no retention. Voiding via male PW for incontinence. Critical labs back this morning potassium 2.5 and mag 0.9. RONNY Alvarado was notified with orders for 2grams magnesium, ordered and infusing. PA advised plan to reassess other repletions when the remainder of morning labs result. q2hr turning and repositioning provided. Heels floated on pillows. SCDs in place. Please see RASS and CIWA assessments, MAR for full details.? Bed alarm on and safety measures in place. Plan of care continues.
[2024-08-08] MEDS: Potassium Phosphate/NS 15 MMOL/250 ML PLAST..BAG 62.5 MMOL IV (07:45)
--- NOTE | 2024-08-08 08:09 | PM.EVENT ---
Event Note Date of Service: 08/08/24 Event Note: attempted to see the patient today -he was asleep and sedated spoke with the nurse who mentioned he was agitated but when he is awake he is confused, unaware of where he is or what happened Time Spent With Patient Time: Total time managing care of this patient today ____ minutes.
--- NOTE | 2024-08-08 08:18 | PM.CCPN ---
Subjective Subjective Date of Service: 08/08/24 Critical Care Time (minutes): 35 Comment: Episodes of agitation overnight needing multiple pushes of Ativan, phenobarb IM and morphine Continues to be on Precedex drip Physical Exam Vital Signs: Vital Signs: Last Vital Signs Temp 97.7 F 08/08/24 04:00 Pulse 74 08/08/24 07:00 Resp 15 08/08/24 07:00 BP 123/62 08/08/24 07:00 Pulse Ox 100 08/08/24 07:00 O2 Del Method Room Air 08/08/24 07:00 BMI result Body Mass Index 28.7 General: Often agitated, currently lying in the bed and sleeping Nutritional Appearance: well nourished and overweight Eyes: appearance normal, both eyes and all related structures; Alignment and Position: alignment normal and position normal Neck: No lymphadenopathy, no thyromegaly Resp: bilateral air entry equal, no added sounds present Cardio: Regular rate, regular rhythm; Heart sounds: S1 normal heart sound present and S2 normal heart sound present GI: soft, nontender, no guarding, no hepatosplenomegaly : bladder normal to inspection, bladder normal to palpation, no renal angle tenderness Skin: no rashes or lesions noted and elasticity normal, swollen left shoulder with bluish discoloration of the [place] Neuro: Confused, complains about pain, moves all extremities Objective Data Labs 08/08/24 05:03 08/08/24 05:03 Labs: Laboratory Results - last 24 hr 08/08/24 05:03 WBC 11.0 H RBC 2.27 L Hgb 8.5 L Hct 22.7 L MCV 100.0 H MCH 37.4 H MCHC 37.4 H RDW 13.1 Plt Count 111 L MPV 11.4 Immature Gran % (Auto) 0.6 H Neut % (Auto) 69.3 Lymph % (Auto) 13.5 L [place] % (Auto) 15.5 H Eos % (Auto) 0.7 Baso % (Auto) 0.4 Lymph # (Auto) 1.5 [place] # (Auto) 1.7 H Eos # (Auto) 0.1 Baso # (Auto) 0.0 Abs Immat Gran (auto) 0.07 H Absolute Neuts (auto) 7.6 Absolute Nucleated RBC 0.000 Nucleated RBC % (auto) 0.0 Smear Tech's Comments VERIFIED Sodium 140 Potassium 2.5 L* Chloride 102 Carbon Dioxide 19 L Anion Gap 22 H BUN 7 L Creatinine 0.63 Estim Creat Clear Calc 146.1 Estimated GFR > 60 Random Glucose 87 Calcium 7.5 L Phosphorus 2.4 L Magnesium 0.9 L* Total Bilirubin 1.4 H AST 66 H ALT 25 Alkaline Phosphatase 67 Total Protein 5.9 L Albumin 3.4 L Microbiology Microbiology Results: Microbiology 08/06/24 06:19 Blood - Venous Blood Culture - Preliminary No growth after 24 hours. 08/06/24 06:19 Blood - Venous Blood Culture - Preliminary No growth after 24 hours. Progress Note: A&P Assessment and plan (1) Delirium tremens: Status: Acute (2) Hypomagnesemia: Status: Acute (3) Hypokalemia: Status: Acute (4) Metabolic acidosis, increased anion gap: Status: Acute (5) Acidosis, lactic: Status: Acute (6) Fracture, humerus, proximal: Status: Acute (7) Alcohol withdrawal seizure with delirium: Status: Acute Plan Acute encephalopathy possibly due to alcohol withdrawal syndrome On Precedex for anxiolysis, on IM phenobarb with poor response increasing dose to 260mg q4h to see if possible we will taper Precedex Close neurological status monitoring in the ICU every hour continue folate and thiamine for chronic alcoholism Keppra discontinued as seizure was possibly secondary to alcohol withdrawal Cardiac: Circulatory Shock: Possibly secondary to medication, Precedex On Levophed support, titrate Levophed to keep map above 65 mm Hg Respiratory: Breathing stable on room air GI: on tube feeds transaminitis: secondary to alcoholic liver disease Acute hypokalemia: Possibly secondary to hypomagnesemia We will replace as per protocol Acute Hypomagnesemia: We will replace aggressively Acute Hypophosphatemia: Due to poor reserves Heme: Chronic anemia, closely monitor H&H, transfuse for hemoglobin less than 7 grams/deciliter Endocrine: Blood sugars under control Sliding scale insulin as needed Infectious disease: Negative pancultures Musculoskeletal: Decubitus ulcer prevention protocol Lines: Peripheral Prophylaxis: heparin, famotidine Quality Stroke Does the patient have a stroke diagnosis?: No VTE Prior VTE?: No VTE Risk Level:: Medical - moderate - high VTE Device Contraindication: Treatment Not Indicated VTE Drug Contraindication: N/A - Med Ordered
[2024-08-08] MEDS: PHENobarbitaL sodium 130 MG/ML VIAL 260 MG IM ×3 (09:00→19:56)
[2024-08-08] MEDS: Famotidine/PF 20 MG/2 ML VIAL IVPUSH ×2 (09:58→20:06)
[2024-08-08] MEDS: Folic Acid 2 MG in 0.9 % Sodium Chloride 50 ML 100.4 MG IV (10:02)
[2024-08-08 14:02] LABS: Alanine Aminotransferase 22 U/L (0-40); Albumin Level 3.5 g/dL (3.5-5.0); Alkaline Phosphatase 58 U/L (39-117); Anion Gap 20 (12-20); Aspartate Amino Transferase 76 U/L (5-37); Bilirubin Total 1.4 mg/dL (0.0-1.0); Blood Urea Nitrogen 8 mg/dL (9-16); Calcium 7.6 mg/dL (8.4-10.2); Carbon Dioxide 17 mmol/L (22-29); Chloride 105 mmol/L (96-108); Creatinine Clr Calc Pharmacy 139.4; Estimated Glomerular Filt Rate > 60; Glucose Random 86 mg/dL (60-115); Potassium 2.6 mmol/L (3.3-5.1); Sodium 139 mmol/L (135-145)
--- NOTE | 2024-08-08 14:14 | MHC.CM.PN ---
Pt extubated but confused and agitated requiring 1:1 sitter. Meds to be adjusted: pt from home w/parents/ no services. CM to follow for finalization of d/c planning needs.
[2024-08-08] MEDS: Potassium Chloride/H20 10 MEQ/100 ML PIGGYBACK 100 MEQ IV ×6 (15:25→23:34)
--- NOTE | 2024-08-08 19:01 | PC.NURSE ---
Neuro: Patient Continues on Precedex gtt for continued intermittent agitation, unable to titrate down as need for PRN Phenobarbitol still required, and dose increased this AM, See MAR for details, currently sleepy but easily arousable and following simple commands. Cardiac: SR on Tele, off Levophed since yesterday Resp: Lung sounds diminished but O2 Sat 99% on room air. GI/: Currently NPO, able to take one teaspoon of water at a time but unable to tolerate sips, male purewick placed, 150mls noted of urine at 1200, no more urine noted, BS for 0mls noted post void. Integumentary/Musculoskeletal: bruising to right knee, right shoulder and left foot.? Psychosocial (family etc.): Brother on file called for update
[2024-08-08 21:57] LABS: Alanine Aminotransferase 26 U/L (0-40); Albumin Level 3.4 g/dL (3.5-5.0); Alkaline Phosphatase 165 U/L (39-117); Anion Gap 20 (12-20); Aspartate Amino Transferase 78 U/L (5-37); Bilirubin Total 1.3 mg/dL (0.0-1.0); Blood Urea Nitrogen 9 mg/dL (9-16); Calcium 7.6 mg/dL (8.4-10.2); Carbon Dioxide 19 mmol/L (22-29); Chloride 105 mmol/L (96-108); Creatinine Clr Calc Pharmacy 135.3; Estimated Glomerular Filt Rate > 60; Glucose Random 88 mg/dL (60-115); Potassium 2.9 mmol/L (3.3-5.1); Sodium 141 mmol/L (135-145)
[2024-08-08] MEDS: Calcium Gluconate/NaCl,Iso-Osm 1 GM/50 ML PLAST..BAG IV (22:26)
[2024-08-09] VITALS (25 sets, daily range): BP systolic 91–142; BP diastolic 49–94; PULSE 76–114; RESP 12–21; TEMP 36.5–38.2; O2SAT 97–100; BMI 26.4
[2024-08-09] MEDS: Potassium Chloride/H20 10 MEQ/100 ML PIGGYBACK 100 MEQ IV ×2 (00:30→01:40)
[2024-08-09] MEDS: dexmedeTOMIDidine HCL/NS 400 MCG/100 ML INFUS..BTL 23.11 MCG IVCONT (00:50)
[2024-08-09] MEDS: PHENobarbitaL sodium 130 MG/ML VIAL 260 MG IM ×5 (02:00→19:13)
[2024-08-09] MEDS: Heparin Sodium,Porcine 5,000 UNIT/ML VIAL 5000 UNIT SUBCUT ×3 (04:06→21:39)
[2024-08-09] MEDS: dexmedeTOMIDidine HCL/NS 400 MCG/100 ML INFUS..BTL 26.66 MCG IVCONT ×2 (04:37→08:17)
[2024-08-09 05:16] LABS: Basophils Percent Auto 0.3 % (0-2); Eosinophils Percent Auto 0.3 % (0-4); Hematocrit 23.2 % (42.0-52.0); Hemoglobin 8.2 g/dl (14.0-18.0); Imm Gran Abs Auto 0.04 X10*3/uL (0.00-0.03); Imm Gran Pct Auto 0.4 % (0.0-0.4); Lymphocytes Absolute Auto 0.8 X10*3/uL (1.2-4.9); Lymphocytes Percent Auto 9.2 % (20-40); MANUAL DIFF FLAG SCAN; Mean Corpuscular HGB Conc 35.3 g/dl (31.0-36.0); Mean Corpuscular Hemoglobin 36.8 pg (27.0-33.0); Mean Platelet Volume 11.6 fL (9.4-12.4); Monocytes Absolute Auto 1.6 X10*3/uL (0.1-1.2); Monocytes Percent Auto 18.2 % (2-11); Neutrophils Absolute Auto 6.4 x10*3/uL (2.0-8.3); Neutrophils Percent Auto 71.6 % (45-73); Platelet Count 130 X10*3/uL (160-400); Red Blood Count 2.23 X10*6/uL (4.60-5.80); Red Cell Distribution Width 13.1 % (11.0-16.0); SCAN SMEAR FLAG 1; White Blood Count 8.9 X10*3/uL (4.8-10.8)
[2024-08-09 05:38] LABS: Alanine Aminotransferase 21 U/L (0-40); Albumin Level 3.3 g/dL (3.5-5.0); Alkaline Phosphatase 71 U/L (39-117); Anion Gap 21 (12-20); Aspartate Amino Transferase 77 U/L (5-37); Bilirubin Total 1.3 mg/dL (0.0-1.0); Blood Urea Nitrogen 7 mg/dL (9-16); Calcium 7.4 mg/dL (8.4-10.2); Carbon Dioxide 17 mmol/L (22-29); Chloride 106 mmol/L (96-108); Creatinine Clr Calc Pharmacy 135.3; Estimated Glomerular Filt Rate > 60; Glucose Random 89 mg/dL (60-115); Magnesium 1.4 mg/dL (1.6-2.6); Phosphorus 2.4 mg/dL (2.7-4.5); Potassium 2.9 mmol/L (3.3-5.1); Sodium 141 mmol/L (135-145)
[2024-08-09 05:47] LABS: SLIDE REVIEW VERIFIED
[2024-08-09] MEDS: Potassium Phosphate/NS 15 MMOL/250 ML PLAST..BAG 62.5 MMOL IV (06:12)
[2024-08-09] MEDS: Magnesium Sulfate/H2O 2 GM/50 ML PIGGYBACK IV ×3 (06:12→16:24)
[2024-08-09] MEDS: Famotidine/PF 20 MG/2 ML VIAL IVPUSH ×2 (08:03→21:38)
--- NOTE | 2024-08-09 08:22 | P.PNCC_ITS ---
Subjective Subjective Date of Service: 08/09/24 Critical Care Time (minutes): 35 Comment: On Precedex and IM phenobarb, mental status likely improving Physical Exam 2 Vital Signs: Vital Signs: Last Vital Signs Temp 97.8 F 08/09/24 08:00 Pulse 79 08/09/24 08:00 Resp 20 08/09/24 08:00 BP 92/58 L 08/09/24 08:00 Pulse Ox 98 08/09/24 08:00 O2 Del Method Room Air 08/09/24 08:00 BMI result Body Mass Index 26.4 General: Middle-aged male, mildly CKD CAD, lying in the bed confused Nutritional Appearance: well nourished and overweight Eyes: appearance normal, both eyes and all related structures; Alignment and Position: alignment normal and position normal Neck: No lymphadenopathy, no thyromegaly Resp: bilateral air entry equal, no added sounds present Cardio: Regular rate, regular rhythm; Heart sounds: S1 normal heart sound present and S2 normal heart sound present GI: soft, nontender, no guarding, no hepatosplenomegaly : bladder normal to inspection, bladder normal to palpation, no renal angle tenderness Skin: no rashes or lesions noted and elasticity normal, swelling of the right shoulder along with bruising Neuro: Significant confusion present, moves all extremities Objective Data Labs 08/09/24 04:44 08/09/24 04:44 Labs: Laboratory Results - last 24 hr 08/08/24 08/08/24 08/09/24 13:14 21:15 04:44 WBC 8.9 RBC 2.23 L Hgb 8.2 L Hct 23.2 L MCV 104.0 H MCH 36.8 H MCHC 35.3 RDW 13.1 Plt Count 130 L MPV 11.6 Immature Gran % (Auto) 0.4 Neut % (Auto) 71.6 Lymph % (Auto) 9.2 L [place] % (Auto) 18.2 H Eos % (Auto) 0.3 Baso % (Auto) 0.3 Lymph # (Auto) 0.8 L [place] # (Auto) 1.6 H Eos # (Auto) 0.0 Baso # (Auto) 0.0 Abs Immat Gran (auto) 0.04 H Absolute Neuts (auto) 6.4 Absolute Nucleated RBC 0.000 Nucleated RBC % (auto) 0.0 Smear Tech's Comments VERIFIED Sodium 139 141 141 Potassium 2.6 L* 2.9 L* 2.9 L* Chloride 105 105 106 Carbon Dioxide 17 L 19 L 17 L Anion Gap 20 20 21 H BUN 8 L 9 7 L Creatinine 0.66 0.68 0.68 Estim Creat Clear Calc 139.4 135.3 135.3 Estimated GFR > 60 > 60 > 60 Random Glucose 86 88 89 Calcium 7.6 L 7.6 L 7.4 L Phosphorus 3.0 2.4 L Magnesium 2.0 1.4 L* Total Bilirubin 1.4 H 1.3 H 1.3 H AST 76 H 78 H 77 H ALT 22 26 21 Alkaline Phosphatase 58 165 H 71 Total Protein 6.0 L 6.0 L 6.0 L Albumin 3.5 3.4 L 3.3 L Microbiology Microbiology Results: Microbiology 08/06/24 06:19 Blood - Venous Blood Culture - Preliminary No growth after 48 hours. 08/06/24 06:19 Blood - Venous Blood Culture - Preliminary No growth after 48 hours. Progress Note: A&P Assessment and plan (1) Delirium tremens: Status: Acute (2) Hypomagnesemia: Status: Acute (3) Hypokalemia: Status: Acute (4) Acidosis, lactic: Status: Acute (5) Metabolic acidosis, increased anion gap: Status: Acute (6) Fracture, humerus, proximal: Status: Acute (7) Alcohol withdrawal seizure with delirium: Status: Acute Plan Acute encephalopathy possibly due to alcohol withdrawal syndrome On Precedex for anxiolysis, on IM phenobarb 260mg q3h; goal is to taper the Precedex as tolerated during the day Close neurological status monitoring in the ICU every hour continue folate and thiamine for chronic alcoholism Keppra discontinued as seizure was possibly secondary to alcohol withdrawal Respiratory: Breathing stable on room air GI: not on feeds transaminitis: secondary to alcoholic liver disease Acute hypokalemia: Possibly secondary to hypomagnesemia, replacing both Mg and K Acute Hypomagnesemia: replace along with scheduled MgSo4 Acute Hypophosphatemia: Due to poor or absent oral intake will do speech eval Heme: Chronic anemia, closely monitor H&H, transfuse for hemoglobin less than 7 grams/deciliter Endocrine: Blood sugars under control Sliding scale insulin as needed Infectious disease: Negative pancultures Musculoskeletal: Decubitus ulcer prevention protocol Lines: Peripheral Prophylaxis: heparin, famotidine Quality Stroke Does the patient have a stroke diagnosis?: No VTE Prior VTE?: No VTE Risk Level:: Medical - moderate - high VTE Device Contraindication: Treatment Not Indicated VTE Drug Contraindication: N/A - Med Ordered
[2024-08-09] MEDS: Folic Acid 2 MG in 0.9 % Sodium Chloride 50 ML 100.4 MG IV (09:42)
[2024-08-09] MEDS: Potassium Phosphate 30 MMOL in 0.9 % Sodium Chloride 500 ML 85 MMOL IV ×2 (09:55→16:48)
--- NOTE | 2024-08-09 14:31 | MHC.CM.PN ---
Pt showing longer periods of decreased agitation: sleepy but able to follow commands: Plans for the day: swallow eval and continued care. Pt will see CARE team once medically cleared. CM to follow
--- NOTE | 2024-08-09 15:40 | MHC.SL.SWA ---
Speech Pathologist Impression: Dysphagia in setting of weakness, delirium, withdrawl Risk of Aspiration Due to: Reduced awareness Dysphasia Diet Status: Liquid Consistency and Strategies for Safe Swallow: Liquid Intake Recommendation: NPO Liquid Intake Strategies: Solid Food Consistency: Dietary Recommendations: NPO Additional Modifications to Solid Foods: Oral Medication Intake: NPO Please contact the pharmacy regarding appropriate crushable or liquid drug formulations that are available whenever modified delivery is recommended. Compensatory Strategies and Precautions to be Taken for Safe Swallow: Supervision While Eating and Drinking for Safe Swallow: PO with CAFE AIDE Foods to Avoid: Swallowing Recommended Treatments: Compens. Strategy Educat. Recommendation for Speech: Comment: Pt able to attend to brief moments of communication but unable to consistently follow commands. PO trials of thins discontinued d/t immediate cough upon swallowing approximately 5cc of water (ice chip melted). Pt not considered safe to trial more advanced or thicker consistencies d/t limits in pt ability to follow safety cues (i.e. produce volitional cough/throat clear, initiate second swallow). RN and MD consulted; anticipate pt will be able to participate in bedside swallow evaluation when mentation more stable. Frequency/Duration: Date Range for Service Req: Timeline to reassess: Forming Mill Operator Clinican/Clinical Fellow: No Supervisory Statement: I have reviewed and agree with the student/clinical fellow's documentation: N/A Speech Language Pathologist: Selina Hernandez M.S., [facility]
[2024-08-09] MEDS: dexmedeTOMIDidine HCL/NS 400 MCG/100 ML INFUS..BTL 8.89 MCG IVCONT (16:21)
[2024-08-09 16:45] LABS: Anion Gap 21 (12-20); Blood Urea Nitrogen 6 mg/dL (9-16); Calcium 7.6 mg/dL (8.4-10.2); Carbon Dioxide 17 mmol/L (22-29); Chloride 108 mmol/L (96-108); Creatinine Clr Calc Pharmacy 111.4; Estimated Glomerular Filt Rate > 60; Glucose Random 93 mg/dL (60-115); Magnesium 1.7 mg/dL (1.6-2.6); Sodium 143 mmol/L (135-145)
--- NOTE | 2024-08-09 19:25 | PC.NURSE ---
Neuro: Patient Continues on Precedex gtt titrated down as tolerated, started pulling at lines, unable to titrate down any further, PRN Phenobarbitol changed to scheduled Q3HR, See MAR for details, currently awake, calm and following some simple commands, times of hallucinations and confusion. Cardiac: SR to ST on Tele Resp: Lung sounds diminished but O2 Sat 99% on room air. GI/: Currently NPO, speech in to assess patient, unable to clear secretions, attempted to swallow water when brushing teeth, started coughing but quickly recovered.? Integumentary/Musculoskeletal: bruising to right knee, right shoulder and left foot.?
[2024-08-09 20:31] LABS: Alanine Aminotransferase 24 U/L (0-40); Albumin Level 3.2 g/dL (3.5-5.0); Alkaline Phosphatase 91 U/L (39-117); Anion Gap 20 (12-20); Aspartate Amino Transferase 83 U/L (5-37); Bilirubin Total 1.1 mg/dL (0.0-1.0); Blood Urea Nitrogen 6 mg/dL (9-16); Calcium 7.3 mg/dL (8.4-10.2); Carbon Dioxide 16 mmol/L (22-29); Chloride 112 mmol/L (96-108); Creatinine Clr Calc Pharmacy 114.5; Estimated Glomerular Filt Rate > 60; Glucose Random 94 mg/dL (60-115); Magnesium 1.9 mg/dL (1.6-2.6); Phosphorus 3.2 mg/dL (2.7-4.5); Potassium 3.4 mmol/L (3.3-5.1); Sodium 145 mmol/L (135-145); Total Protein 5.9 g/dL (6.5-8.0)
[2024-08-10] VITALS (26 sets, daily range): BP systolic 127–200; BP diastolic 64–101; PULSE 97–133; RESP 15–33; TEMP 36.8–37.7; O2SAT 91–99; BMI 26.4
[2024-08-10] MEDS: dexmedeTOMIDidine HCL/NS 400 MCG/100 ML INFUS..BTL 5.33 MCG IVCONT (02:26)
[2024-08-10] MEDS: Heparin Sodium,Porcine 5,000 UNIT/ML VIAL 5000 UNIT SUBCUT ×3 (04:08→20:53)
[2024-08-10 04:35] LABS: VBG Base Excess 0.2 mmol/L; VBG HCO3 21 mmol/L (22-26); VBG pCO2 24 mmHg; VBG pH 7.54 (7.32-7.43); VBG pO2 63 mmHg
[2024-08-10 04:55] LABS: Venous Blood Gas Refer to POC result
[2024-08-10 05:08] LABS: Basophils Percent Auto 0.3 % (0-2); Eosinophils Percent Auto 0.1 % (0-4); Hematocrit 25.1 % (42.0-52.0); Hemoglobin 8.7 g/dl (14.0-18.0); Imm Gran Abs Auto 0.08 X10*3/uL (0.00-0.03); Imm Gran Pct Auto 0.6 % (0.0-0.4); Lymphocytes Absolute Auto 1.1 X10*3/uL (1.2-4.9); Lymphocytes Percent Auto 8.1 % (20-40); MANUAL DIFF FLAG SCAN; Mean Corpuscular HGB Conc 34.7 g/dl (31.0-36.0); Mean Corpuscular Hemoglobin 36.3 pg (27.0-33.0); Mean Corpuscular Volume 104.6 fL (80.0-98.0); Monocytes Absolute Auto 2.9 X10*3/uL (0.1-1.2); Monocytes Percent Auto 21.9 % (2-11); NRBC Pct Auto 0.2 /100WBC (0.0-0.2); Neutrophils Absolute Auto 9.1 x10*3/uL (2.0-8.3); Platelet Count 184 X10*3/uL (160-400); Red Cell Distribution Width 13.3 % (11.0-16.0); SCAN SMEAR FLAG 1; White Blood Count 13.1 X10*3/uL (4.8-10.8)
[2024-08-10 05:29] LABS: Alanine Aminotransferase 31 U/L (0-40); Albumin Level 3.4 g/dL (3.5-5.0); Alkaline Phosphatase 102 U/L (39-117); Anion Gap 20 (12-20); Aspartate Amino Transferase 96 U/L (5-37); Bilirubin Total 1.4 mg/dL (0.0-1.0); Blood Urea Nitrogen 5 mg/dL (9-16); Calcium 7.7 mg/dL (8.4-10.2); Carbon Dioxide 19 mmol/L (22-29); Chloride 109 mmol/L (96-108); Creatinine Clr Calc Pharmacy 121.1; Estimated Glomerular Filt Rate > 60; Glucose Random 92 mg/dL (60-115); Magnesium 1.5 mg/dL (1.6-2.6); Phosphorus 2.3 mg/dL (2.7-4.5); Potassium 2.6 mmol/L (3.3-5.1); Sodium 145 mmol/L (135-145); Total Protein 6.4 g/dL (6.5-8.0)
[2024-08-10 05:30] LABS: SLIDE REVIEW VERIFIED
[2024-08-10] MEDS: Potassium Chloride/H20 10 MEQ/100 ML PIGGYBACK 100 MEQ IV ×5 (05:49→23:05)
--- NOTE | 2024-08-10 06:00 | PC.NURSE ---
Upon initial assessments at 2000- pt A&Ox1, otherwise confused/disoriented, hallucinating, but calm and re-directable. CIWA 7. Precedex gtt titrated down as tolerated. Afebrile. NSR/ST on tele, HR 90-100s. SBP WNL. Saturating well on room air. NPO. Voiding via male external purewick, approx 800 mL out this shift. RUE in sling, non-pitting edema, and ecchymotic. Skin overall intact. Repositioned in bed as tolerated. Bed locked in lowest position, alarm on. 1:1 sitter at bedside for safety. See EMR/flowsheet for further details.
[2024-08-10] MEDS: Famotidine/PF 20 MG/2 ML VIAL IVPUSH ×2 (08:16→20:53)
[2024-08-10] MEDS: Magnesium Sulfate/H2O 2 GM/50 ML PIGGYBACK IV ×3 (08:17→23:05)
[2024-08-10] MEDS: 0.9 % Sodium Chloride Flush 3 ML SYRINGE IVFLUSH ×3 (08:18→21:41)
--- NOTE | 2024-08-10 08:20 | P.PNCC_ITS ---
Subjective Subjective Date of Service: 08/10/24 Interval History: Mental status slowly improving continues to be on Precedex drip Critical Care Time (minutes): 35 Physical Exam 2 Vital Signs: Vital Signs: Last Vital Signs Temp 99.8 F 08/10/24 04:00 Pulse 101 H 08/10/24 07:00 Resp 21 H 08/10/24 07:00 BP 137/74 08/10/24 07:00 Pulse Ox 97 08/10/24 07:00 O2 Del Method Room Air 08/10/24 07:00 FiO2 50 08/09/24 22:00 BMI result Body Mass Index 26.4 General: Middle-aged male, confused, ill-appearing Nutritional Appearance: well nourished and overweight Eyes: appearance normal, both eyes and all related structures; Alignment and Position: alignment normal and position normal Neck: No lymphadenopathy, no thyromegaly Resp: bilateral air entry equal, occasional added sounds present Cardio: Regular rate, regular rhythm; Heart sounds: S1 normal heart sound present and S2 normal heart sound present GI: soft, nontender, no guarding, no hepatosplenomegaly : bladder normal to inspection, bladder normal to palpation, no renal angle tenderness Skin: no rashes or lesions noted and elasticity normal, swelling and bruise in the right arm Neuro: o confused, hallucinating and moves all extremities Objective Data Labs 08/10/24 04:21 08/10/24 04:21 Labs: Laboratory Results - last 24 hr 08/09/24 08/09/24 08/10/24 16:24 20:05 04:21 WBC 13.1 H RBC 2.40 L Hgb 8.7 L Hct 25.1 L MCV 104.6 H MCH 36.3 H MCHC 34.7 RDW 13.3 Plt Count 184 D MPV 11.0 Immature Gran % (Auto) 0.6 H Neut % (Auto) 69.0 Lymph % (Auto) 8.1 L [place] % (Auto) 21.9 H Eos % (Auto) 0.1 Baso % (Auto) 0.3 Lymph # (Auto) 1.1 L [place] # (Auto) 2.9 H Eos # (Auto) 0.0 Baso # (Auto) 0.0 Abs Immat Gran (auto) 0.08 H Absolute Neuts (auto) 9.1 H Absolute Nucleated RBC 0.020 H Nucleated RBC % (auto) 0.2 Smear Tech's Comments VERIFIED VBG pH VBG pCO2 VBG pO2 VBG HCO3 VBG O2 Saturation VBG Base Excess Sodium 143 145 145 Potassium 3.0 L 3.4 2.6 L* D Chloride 108 112 H 109 H Carbon Dioxide 17 L 16 L 19 L Anion Gap 21 H 20 20 BUN 6 L 6 L 5 L Creatinine 0.75 0.73 0.69 Estim Creat Clear Calc 111.4 114.5 121.1 Estimated GFR > 60 > 60 > 60 Random Glucose 93 94 92 Calcium 7.6 L 7.3 L 7.7 L Phosphorus 3.2 2.3 L Magnesium 1.7 1.9 1.5 L Total Bilirubin 1.1 H 1.4 H AST 83 H 96 H ALT 24 31 Alkaline Phosphatase 91 102 Total Protein 5.9 L 6.4 L Albumin 3.2 L 3.4 L 08/10/24 04:24 WBC RBC Hgb Hct MCV MCH MCHC RDW Plt Count MPV Immature Gran % (Auto) Neut % (Auto) Lymph % (Auto) [place] % (Auto) Eos % (Auto) Baso % (Auto) Lymph # (Auto) [place] # (Auto) Eos # (Auto) Baso # (Auto) Abs Immat Gran (auto) Absolute Neuts (auto) Absolute Nucleated RBC Nucleated RBC % (auto) Smear Tech's Comments VBG pH 7.54 H VBG pCO2 24 VBG pO2 63 VBG HCO3 21 L VBG O2 Saturation 92.0 VBG Base Excess 0.2 Sodium Potassium Chloride Carbon Dioxide Anion Gap BUN Creatinine Estim Creat Clear Calc Estimated GFR Random Glucose Calcium Phosphorus Magnesium Total Bilirubin AST ALT Alkaline Phosphatase Total Protein Albumin Microbiology Microbiology Results: Microbiology 08/06/24 06:19 Blood - Venous Blood Culture - Preliminary No growth after 48 hours. 08/06/24 06:19 Blood - Venous Blood Culture - Preliminary No growth after 48 hours. Progress Note: A&P Assessment and plan (1) Delirium tremens: Status: Acute (2) Hypomagnesemia: Status: Acute (3) Metabolic acidosis, increased anion gap: Status: Acute (4) Fracture, humerus, proximal: Status: Acute (5) Alcohol withdrawal seizure with delirium: Status: Acute (6) Numbness and tingling in right hand: Status: Acute (7) Carpal tunnel syndrome of right wrist: Status: Acute Plan Acute encephalopathy possibly due to alcohol withdrawal syndrome On Precedex for anxiolysis, on IM phenobarb 260mg q3h; goal is to taper the Precedex as tolerated during the day Close neurological status monitoring in the ICU every hour continue folate and thiamine for chronic alcoholism Respiratory: Breathing stable on room air GI: not on feeds transaminitis: secondary to alcoholic liver disease Acute hypokalemia: Possibly secondary to hypomagnesemia, replacing both Mg and K Acute Hypomagnesemia: replace along with scheduled MgSo4 Acute Hypophosphatemia: Due to poor or absent oral intake, poor reserves in the setting of chronic alcoholism speech followup Heme: Chronic anemia- macrocytic anemia secondary to B12 and folate deficiency. Continue folic acid repletion closely monitor H&H, transfuse for hemoglobin less than 7 grams/deciliter Endocrine: Blood sugars under control Sliding scale insulin as needed Infectious disease: Negative pancultures Right shoulder dislocation and fracture: orthopedics on board, wants to wait till his neurological status improves Musculoskeletal: Decubitus ulcer prevention protocol Lines: Peripheral Prophylaxis: heparin, famotidine Quality Stroke Does the patient have a stroke diagnosis?: No VTE Prior VTE?: No VTE Risk Level:: Medical - moderate - high VTE Device Contraindication: Treatment Not Indicated VTE Drug Contraindication: N/A - Med Ordered
[2024-08-10] MEDS: Folic Acid 2 MG in 0.9 % Sodium Chloride 50 ML 100.4 MG IV (10:05)
[2024-08-10] MEDS: Potassium Phosphate/NS 15 MMOL/250 ML PLAST..BAG 62.5 MMOL IV ×2 (10:06→23:05)
--- NOTE | 2024-08-10 11:50 | MHC.CM.PN ---
Pt remains on precedex gtt: periods of agitation: ortho to see pt for arm fx once pt is more alert and conversant. D/C planning ongoing.
[2024-08-10] MEDS: Labetalol HCL 100 MG/20 ML VIAL 20 MG IVPUSH (12:50)
--- NOTE | 2024-08-10 14:13 | MHC.SLORD ---
Speech Language Pathology Order Status: RN advised patient is not ready for re-assessment/po trials due to mental status (unable to follow directions, agitation). MILKER MACHINE will continue to follow, re-attempt when appropriate.
--- NOTE | 2024-08-10 18:30 | PC.NURSE ---
ICU Day #: 5 Neuro: Precedex titrated off this am. Pt drowsy, unable to assess mental status, does not follow commands.? CIWA 4.? Respiratory: Pt desated to mid 80?s, placed on 2L NC, clear lung sounds, 02sat improved to low 90?s Cardiac:? Sinus tachy, Systolic BP up? to 200 Labetalol IVP-per JUL. Dr. Seth made aware of the above vitals. GI/: Unknown last BM, ?NPO; awaiting speech swallow? eval.? : Male purewick in place.? Skin: Bruise to right upper arm Lines: ?Peripheral IVs
[2024-08-10] MEDS: Ampicillin Sodium/Sulbactam Na 3 GM in 0.9 % Sodium Chloride 100 ML IV (21:40)
[2024-08-10 21:51] LABS: Basophils Absolute Auto 0.1 X10*3/uL (0.0-0.2); Basophils Percent Auto 0.5 % (0-2); Eosinophils Absolute Auto 0.2 X10*3/uL (0.0-0.4); Eosinophils Percent Auto 1.2 % (0-4); Hematocrit 28.4 % (42.0-52.0); Hemoglobin 9.6 g/dl (14.0-18.0); Imm Gran Abs Auto 0.14 X10*3/uL (0.00-0.03); Imm Gran Pct Auto 0.9 % (0.0-0.4); Lymphocytes Absolute Auto 1.1 X10*3/uL (1.2-4.9); Lymphocytes Percent Auto 6.8 % (20-40); MANUAL DIFF FLAG SCAN; Mean Corpuscular HGB Conc 33.8 g/dl (31.0-36.0); Mean Corpuscular Volume 106.4 fL (80.0-98.0); Mean Platelet Volume 10.1 fL (9.4-12.4); Monocytes Absolute Auto 3.5 X10*3/uL (0.1-1.2); Monocytes Percent Auto 21.2 % (2-11); NRBC Pct Auto 0.2 /100WBC (0.0-0.2); Neutrophils Absolute Auto 11.4 x10*3/uL (2.0-8.3); Neutrophils Percent Auto 69.4 % (45-73); Platelet Count 226 X10*3/uL (160-400); Red Blood Count 2.67 X10*6/uL (4.60-5.80); SCAN SMEAR FLAG 1; White Blood Count 16.4 X10*3/uL (4.8-10.8)
[2024-08-10 21:55] LABS: Venous Blood Gas Refer to POC result
[2024-08-10 21:57] LABS: VBG HCO3 23 mmol/L (22-26); VBG pCO2 26 mmHg; VBG pH 7.55 (7.32-7.43); VBG pO2 39 mmHg
[2024-08-10 22:04] LABS: Lactic Acid 1.9 mmol/L (0.5-2.0)
[2024-08-10 22:09] LABS: B Type Natriuretic Peptide 177 pg/mL (<100)
[2024-08-10 22:14] LABS: Alanine Aminotransferase 43 U/L (0-40); Albumin Level 3.5 g/dL (3.5-5.0); Alkaline Phosphatase 112 U/L (39-117); Anion Gap 19 (12-20); Aspartate Amino Transferase 119 U/L (5-37); Bilirubin Total 1.6 mg/dL (0.0-1.0); Blood Urea Nitrogen 7 mg/dL (9-16); C Reactive Protein 37.08 mg/dL (< or = 0.50); Calcium 7.6 mg/dL (8.4-10.2); Carbon Dioxide 20 mmol/L (22-29); Chloride 110 mmol/L (96-108); Creatinine Clr Calc Pharmacy 130.6; Estimated Glomerular Filt Rate > 60; Glucose Random 123 mg/dL (60-115); Magnesium 1.7 mg/dL (1.6-2.6); Potassium 2.7 mmol/L (3.3-5.1); Sodium 146 mmol/L (135-145); Total Protein 6.6 g/dL (6.5-8.0)
[2024-08-10 22:25] LABS: Procalcitonin 0.53 ng/mL
[2024-08-10] MEDS: Albuterol/Iprat 2.5/0.5MG 3 ML AMPUL.NEB INHALE (22:25)
[2024-08-10 22:29] LABS: SLIDE REVIEW VERIFIED
--- NOTE | 2024-08-10 22:37 | HE.NUR.EV ---
Status Change: During 1999 assessment- pt with new expiratory rhonchi bilaterally, HR 130s, RR 30s, shallow, with strong productive cough, desaturating to 89% via 2L NC. Immediate Actions Taken: Oxygen increased to 5L NC to maintain SpO2 > 92%, encouraged to TCDB, HOB > 30 degrees, attempted to orally suction pt. Notifications: RONNY Alvarado Further Monitoring and Treatment: New orders for, pCXR, sputum sample, duonebs, labs, and Unasyn 3 gm IV x1.
[2024-08-11] VITALS (30 sets, daily range): BP systolic 96–164; BP diastolic 58–83; PULSE 114–140; RESP 22–33; TEMP 37.1–39; O2SAT 91–100; BMI 26.4
[2024-08-11] MEDS: Potassium Chloride/H20 10 MEQ/100 ML PIGGYBACK 100 MEQ IV ×7 (00:22→12:29)
[2024-08-11] MEDS: Albuterol Sulfate (0.083%) 2.5 MG/3 ML VIAL.NEB INHALE (00:29)
[2024-08-11] MEDS: Metoprolol Tartrate 5 MG/5 ML VIAL IVPUSH ×3 (01:11→23:17)
[2024-08-11] MEDS: Potassium Phosphate/NS 15 MMOL/250 ML PLAST..BAG 62.5 MMOL IV ×3 (03:05→19:58)
[2024-08-11] MEDS: Albuterol/Iprat 2.5/0.5MG 3 ML AMPUL.NEB INHALE ×4 (04:34→18:52)
[2024-08-11] MEDS: Heparin Sodium,Porcine 5,000 UNIT/ML VIAL 5000 UNIT SUBCUT ×3 (04:44→19:59)
[2024-08-11 04:55] LABS: Basophils Absolute Auto 0.1 X10*3/uL (0.0-0.2); Basophils Percent Auto 0.4 % (0-2); Eosinophils Absolute Auto 0.2 X10*3/uL (0.0-0.4); Eosinophils Percent Auto 1.3 % (0-4); Hemoglobin 9.2 g/dl (14.0-18.0); Imm Gran Abs Auto 0.14 X10*3/uL (0.00-0.03); Imm Gran Pct Auto 0.8 % (0.0-0.4); Lymphocytes Absolute Auto 1.1 X10*3/uL (1.2-4.9); Lymphocytes Percent Auto 6.7 % (20-40); MANUAL DIFF FLAG SCAN; Mean Corpuscular HGB Conc 35.4 g/dl (31.0-36.0); Mean Corpuscular Hemoglobin 36.4 pg (27.0-33.0); Mean Corpuscular Volume 102.8 fL (80.0-98.0); Monocytes Absolute Auto 3.4 X10*3/uL (0.1-1.2); Monocytes Percent Auto 20.7 % (2-11); NRBC Pct Auto 0.4 /100WBC (0.0-0.2); Neutrophils Absolute Auto 11.6 x10*3/uL (2.0-8.3); Neutrophils Percent Auto 70.1 % (45-73); Platelet Count 228 X10*3/uL (160-400); Red Blood Count 2.53 X10*6/uL (4.60-5.80); Red Cell Distribution Width 13.7 % (11.0-16.0); SCAN SMEAR FLAG 1; White Blood Count 16.5 X10*3/uL (4.8-10.8)
[2024-08-11 05:10] LABS: Alanine Aminotransferase 38 U/L (0-40); Albumin Level 3.3 g/dL (3.5-5.0); Alkaline Phosphatase 103 U/L (39-117); Anion Gap 16 (12-20); Aspartate Amino Transferase 89 U/L (5-37); Bilirubin Total 1.5 mg/dL (0.0-1.0); Blood Urea Nitrogen 6 mg/dL (9-16); Calcium 7.4 mg/dL (8.4-10.2); Carbon Dioxide 20 mmol/L (22-29); Chloride 112 mmol/L (96-108); Creatinine Clr Calc Pharmacy 121.1; Estimated Glomerular Filt Rate > 60; Glucose Random 126 mg/dL (60-115); Magnesium 1.8 mg/dL (1.6-2.6); Phosphorus 2.6 mg/dL (2.7-4.5); Potassium 3.1 mmol/L (3.3-5.1); Sodium 145 mmol/L (135-145); Total Protein 6.3 g/dL (6.5-8.0)
[2024-08-11] MEDS: Magnesium Sulfate/H2O 2 GM/50 ML PIGGYBACK IV ×3 (06:11→20:04)
--- NOTE | 2024-08-11 08:11 | PM.EVENT ---
Event Note Date of Service: 08/11/24 Event Note: attempted to see the patient today Patient was arousable, but was unable to give a coherent response to questions There was a significant amount of ecchymosis on the left shoulder to inspection Will attempt to follow-up later today Time Spent With Patient Time: Total time managing care of this patient today ____ minutes.
--- NOTE | 2024-08-11 08:30 | P.PNCC_ITS ---
Subjective Subjective Date of Service: 08/11/24 Interval History: Off Precedex drip, still remains drowsy but less agitated Episode of aspiration last night needing some nasal cannula oxygen, started on Unasyn Critical Care Time (minutes): 35 Physical Exam 2 Vital Signs: Vital Signs: Last Vital Signs Temp 100.2 F 08/11/24 04:00 Pulse 115 H 08/11/24 08:04 Resp 24 H 08/11/24 08:04 BP 111/69 08/11/24 07:00 Pulse Ox 95 08/11/24 07:00 O2 Del Method Nasal Cannula 08/11/24 07:00 O2 Flow Rate 2 08/11/24 07:00 FiO2 50 08/09/24 22:00 BMI result Body Mass Index 26.4 General: Middle-aged male tired appearing, drowsy lying in the bed Nutritional Appearance: well nourished and overweight Eyes: appearance normal, both eyes and all related structures; Alignment and Position: alignment normal and position normal Neck: No lymphadenopathy, no thyromegaly Resp: bilateral air entry equal, occasional added sounds present Cardio: Regular rate, regular rhythm; Heart sounds: S1 normal heart sound present and S2 normal heart sound present GI: soft, nontender, no guarding, no hepatosplenomegaly : bladder normal to inspection, bladder normal to palpation, no renal angle tenderness Skin: no rashes or lesions noted and elasticity normal, right shoulder swollen and bruised Neuro: Drowsy, confusion present, no focal deficit Objective Data Labs 08/11/24 04:52 08/11/24 04:40 Labs: Laboratory Results - last 24 hr 08/10/24 08/10/24 08/11/24 21:40 21:52 04:40 WBC 16.4 H RBC 2.67 L Hgb 9.6 L Hct 28.4 L MCV 106.4 H MCH 36.0 H MCHC 33.8 RDW 14.0 Plt Count 226 MPV 10.1 Immature Gran % (Auto) 0.9 H Neut % (Auto) 69.4 Lymph % (Auto) 6.8 L [place] % (Auto) 21.2 H Eos % (Auto) 1.2 Baso % (Auto) 0.5 Lymph # (Auto) 1.1 L [place] # (Auto) 3.5 H Eos # (Auto) 0.2 Baso # (Auto) 0.1 Abs Immat Gran (auto) 0.14 H Absolute Neuts (auto) 11.4 H Absolute Nucleated RBC 0.040 H Nucleated RBC % (auto) 0.2 Smear Tech's Comments VERIFIED VBG pH 7.55 H VBG pCO2 26 VBG pO2 39 VBG HCO3 23 VBG O2 Saturation 66.0 VBG Base Excess 2.0 Sodium 146 H 145 Potassium 2.7 L* 3.1 L Chloride 110 H 112 H Carbon Dioxide 20 L 20 L Anion Gap 19 16 BUN 7 L 6 L Creatinine 0.64 0.69 Estim Creat Clear Calc 130.6 121.1 Estimated GFR > 60 > 60 Random Glucose 123 H 126 H Lactic Acid 1.9 Calcium 7.6 L 7.4 L Phosphorus 2.0 L 2.6 L Magnesium 1.7 1.8 Total Bilirubin 1.6 H 1.5 H AST 119 H 89 H ALT 43 H 38 Alkaline Phosphatase 112 103 C-Reactive Protein 37.08 H B-Natriuretic Peptide 177 H Total Protein 6.6 6.3 L Albumin 3.5 3.3 L Procalcitonin 0.53 08/11/24 04:52 WBC 16.5 H RBC 2.53 L Hgb 9.2 L Hct 26.0 L MCV 102.8 H MCH 36.4 H MCHC 35.4 RDW 13.7 Plt Count 228 MPV 10.0 Immature Gran % (Auto) 0.8 H Neut % (Auto) 70.1 Lymph % (Auto) 6.7 L [place] % (Auto) 20.7 H Eos % (Auto) 1.3 Baso % (Auto) 0.4 Lymph # (Auto) 1.1 L [place] # (Auto) 3.4 H Eos # (Auto) 0.2 Baso # (Auto) 0.1 Abs Immat Gran (auto) 0.14 H Absolute Neuts (auto) 11.6 H Absolute Nucleated RBC 0.060 H Nucleated RBC % (auto) 0.4 H Smear Tech's Comments VBG pH VBG pCO2 VBG pO2 VBG HCO3 VBG O2 Saturation VBG Base Excess Sodium Potassium Chloride Carbon Dioxide Anion Gap BUN Creatinine Estim Creat Clear Calc Estimated GFR Random Glucose Lactic Acid Calcium Phosphorus Magnesium Total Bilirubin AST ALT Alkaline Phosphatase C-Reactive Protein B-Natriuretic Peptide Total Protein Albumin Procalcitonin Microbiology Microbiology Results: Microbiology 08/06/24 06:19 Blood - Venous Blood Culture - Final No growth after 5 days. 08/06/24 06:19 Blood - Venous Blood Culture - Final No growth after 5 days. 08/11/24 01:37 Sputum - Expectorated Gram Stain - Final Progress Note: A&P Assessment and plan (1) Delirium tremens: Status: Acute (2) Hypomagnesemia: Status: Acute (3) Hypokalemia: Status: Acute (4) Fracture, humerus, proximal: Status: Acute (5) Shoulder fracture, right: Status: Acute (6) Ganglion cyst of volar aspect of right wrist: Status: Acute Plan Acute encephalopathy possibly due to alcohol withdrawal syndrome Off Precedex drip currently We will decrease IM phenobarb from 260mg q3h to 130 mg q.4 hours Close neurological status monitoring in the ICU every hour continue folate and thiamine for chronic alcoholism Respiratory: Breathing stable on room air GI: not on feeds transaminitis: secondary to alcoholic liver disease Acute hypokalemia: Possibly secondary to hypomagnesemia, replacing both Mg and K Potassium 3.1 this morning Acute Hypomagnesemia: replace along with scheduled MgSo4 Improving 1.7 this morning Acute Hypophosphatemia: Due to poor or absent oral intake, poor reserves in the setting of chronic alcoholism Improving 2.7 this morning speech followup Heme: Chronic anemia- macrocytic anemia secondary to B12 and folate deficiency. Continue folic acid repletion closely monitor H&H, transfuse for hemoglobin less than 7 grams/deciliter Endocrine: Blood sugars under control Sliding scale insulin as needed Infectious disease: Negative pancultures On Unasyn for aspiration pneumonia Right shoulder dislocation and fracture: orthopedics on board, wants to wait till his neurological status improves Musculoskeletal: Decubitus ulcer prevention protocol Lines: Peripheral Prophylaxis: heparin, famotidine Quality Stroke Does the patient have a stroke diagnosis?: No VTE Prior VTE?: No VTE Risk Level:: Medical - moderate - high VTE Device Contraindication: Treatment Not Indicated VTE Drug Contraindication: N/A - Med Ordered
[2024-08-11] MEDS: 0.9 % Sodium Chloride Flush 3 ML SYRINGE IVFLUSH ×2 (08:40→17:06)
[2024-08-11] MEDS: Famotidine/PF 20 MG/2 ML VIAL IVPUSH ×2 (09:50→20:01)
[2024-08-11] MEDS: Ampicillin Sodium/Sulbactam Na 1.5 GM in 0.9 % Sodium Chloride 100 ML IV ×3 (09:57→19:55)
[2024-08-11] MEDS: Folic Acid 2 MG in 0.9 % Sodium Chloride 50 ML 100.4 MG IV (10:21)
--- NOTE | 2024-08-11 10:25 | MHC.CLN ---
RE: CONSULT PT IS DAY 6 NPO DISCUSSED AT ROUNDS WITH MD PLAN TO START PPN PT REQUIRE PPN FOR NUTRITION SUPPORT R/T INABILITY TO FOLLOW COMMANDS TO SAFELY TAKE PO RESULTING IN PROLONGED NPO STATUS REVIEWED LABS DISCUSSED WITH PHARMACY 08/11/24 RECOMMEND PPN AT 55ML/HR TO PROVIDE 673KCALS, 132G DEXTROSE, 56G PROTEIN REPLETE LYTES NEEDED 08/12/24 RECOMMEND INCREASING PPN TO 75ML/HR TO PROVIDE 918KCALS, 180G DEXTROSE, 77G PROTEIN REPLETE LYTES NEEDED. CHECK TRIGS 08/13/24 RECOMMEND INCREASING PPN TO MAX GOAL RATE 95ML/HR WITH 80G LIPIDS TO PROVIDE 1963 TOTAL KCALS (25KCALS/KG), 228G DEXTROSE, 97G PROTEIN (1.2G/KG) REPLETE LYTES NEEDED RD CAN BE REACHED DURING OFF HOURS VIA [employer] IF NEEDED SEE CLINICAL NUTRITION ASSESSMENT
--- NOTE | 2024-08-11 12:32 | MHC.SLORD ---
Speech Language Pathology Order Status: Per RN, patient is not appropriate for bedside swallow eval. Patient is not following commands and is not able to clear airway on his own, requiring suctioning. RN to contact [facility] via [employer] Message or ext. [phone] if status changes.
--- NOTE | 2024-08-11 13:20 | MHC.CM.PN ---
Pt weaning of dex: aspiration event last evening: on ATB and supplemental O2. Ortho saw pt but did not recommend any interventions at this time d/t pt's unresolved lethargy. D/C planning ongoing: pt from home: no services CM to follow
[2024-08-11 16:22] LABS: Alanine Aminotransferase 28 U/L (0-40); Albumin Level 3.1 g/dL (3.5-5.0); Anion Gap 16 (12-20); Aspartate Amino Transferase 70 U/L (5-37); Bilirubin Total 1.4 mg/dL (0.0-1.0); Blood Urea Nitrogen 9 mg/dL (9-16); Calcium 7.5 mg/dL (8.4-10.2); Carbon Dioxide 22 mmol/L (22-29); Chloride 113 mmol/L (96-108); Creatinine Clr Calc Pharmacy 126.6; Estimated Glomerular Filt Rate > 60; Glucose Random 112 mg/dL (60-115); Magnesium 2.5 mg/dL (1.6-2.6); Phosphorus 2.4 mg/dL (2.7-4.5); Potassium 3.5 mmol/L (3.3-5.1); Sodium 147 mmol/L (135-145); Total Protein 6.2 g/dL (6.5-8.0)
[2024-08-11 18:27] LABS: Alkaline Phosphatase 95 U/L (39-117)
--- NOTE | 2024-08-11 19:23 | PC.NURSE ---
assumed care 0700 08/11/24. patient stable on 2L NC. Alerts name, AxO to self. patient incomprehensible speech, able to vocalize sons name, name of self, able to make pain known. nods and shakes head to questions. patient temperatures are low grade throughout day, tachycardic, slightly tachypnic at times. medications given per jul. per MD to start PPN today. oxygen titrated off. patient repositioned Q2 and suctioned. spits oral secretions out occasionally, and coughed on command. handed off 1900 on 08/11/24
[2024-08-11] MEDS: Parenteral Nutrition 1,320 ML 55 ML IV (21:19)
[2024-08-12] VITALS (29 sets, daily range): BP systolic 113–144; BP diastolic 63–88; PULSE 121–137; RESP 20–35; TEMP 36.9–38.9; O2SAT 90–98; BMI 26.8
[2024-08-12] MEDS: Ampicillin Sodium/Sulbactam Na 1.5 GM in 0.9 % Sodium Chloride 100 ML IV ×2 (00:20→06:01)
[2024-08-12] MEDS: 0.9 % Sodium Chloride Flush 3 ML SYRINGE IVFLUSH ×3 (00:20→16:43)
[2024-08-12] MEDS: Albuterol Sulfate (0.083%) 2.5 MG/3 ML VIAL.NEB INHALE (01:23)
[2024-08-12] MEDS: Metoprolol Tartrate 5 MG/5 ML VIAL IVPUSH (01:35)
[2024-08-12] MEDS: Heparin Sodium,Porcine 5,000 UNIT/ML VIAL 5000 UNIT SUBCUT (04:33)
[2024-08-12] MEDS: Albuterol/Iprat 2.5/0.5MG 3 ML AMPUL.NEB INHALE ×4 (04:39→19:03)
[2024-08-12 04:59] LABS: Basophils Absolute Auto 0.1 X10*3/uL (0.0-0.2); Basophils Percent Auto 0.3 % (0-2); Hematocrit 27.2 % (42.0-52.0); Hemoglobin 9.3 g/dl (14.0-18.0); Imm Gran Abs Auto 0.18 X10*3/uL (0.00-0.03); Imm Gran Pct Auto 0.9 % (0.0-0.4); Lymphocytes Absolute Auto 1.2 X10*3/uL (1.2-4.9); Lymphocytes Percent Auto 6.1 % (20-40); MANUAL DIFF FLAG SCAN; Mean Corpuscular HGB Conc 34.2 g/dl (31.0-36.0); Mean Corpuscular Hemoglobin 36.2 pg (27.0-33.0); Mean Corpuscular Volume 105.8 fL (80.0-98.0); Mean Platelet Volume 10.3 fL (9.4-12.4); Monocytes Percent Auto 15.6 % (2-11); NRBC Pct Auto 0.2 /100WBC (0.0-0.2); Neutrophils Percent Auto 77.1 % (45-73); Platelet Count 291 X10*3/uL (160-400); Red Blood Count 2.57 X10*6/uL (4.60-5.80); Red Cell Distribution Width 14.4 % (11.0-16.0); SCAN SMEAR FLAG 1; White Blood Count 19.4 X10*3/uL (4.8-10.8)
[2024-08-12 05:07] LABS: SLIDE REVIEW VERIFIED
[2024-08-12 05:23] LABS: Alanine Aminotransferase 28 U/L (0-40); Albumin Level 3.3 g/dL (3.5-5.0); Alkaline Phosphatase 106 U/L (39-117); Anion Gap 15 (12-20); Aspartate Amino Transferase 63 U/L (5-37); Bilirubin Total 1.4 mg/dL (0.0-1.0); Blood Urea Nitrogen 12 mg/dL (9-16); Calcium 8.1 mg/dL (8.4-10.2); Carbon Dioxide 23 mmol/L (22-29); Chloride 114 mmol/L (96-108); Creatinine Clr Calc Pharmacy 116.1; Estimated Glomerular Filt Rate > 60; Glucose Random 137 mg/dL (60-115); Magnesium 2.2 mg/dL (1.6-2.6); Phosphorus 2.2 mg/dL (2.7-4.5); Potassium 3.6 mmol/L (3.3-5.1); Sodium 148 mmol/L (135-145); Total Protein 6.7 g/dL (6.5-8.0)
--- NOTE | 2024-08-12 06:28 | PC.NURSE ---
Assumed care at 1900. Upon initial assessment,?Patient arousable to name, able to mumble a few words but largely unclear/incomprehensible. Patient occasionally able to nod or shake head to yes/no questions but not consistently. Occasionally follows simple commands. ST on tele, HR 120s-130s, provider aware. Lung sounds diminished but clear, patient appears comfortable on room air, RR even and unlabored. Intermittent wet cough, patient able to clear airway but not expectorate any secretions. Abdomen soft and round, several incontinent?BMs. Stools loose and orange. PPN started per JUL. External?male catheter in place, patent and concentrated yellow urine in canister. Skin overall intact, blanchable redness to coccyx (pink prophylactic foam applied) and large bruise to upper right shoulder POA s/p fall. Patient repositioned Q2HR, bed locked in lowest position, bed alarm on. 2000: Rectal temp 102.2, PA notified. Rectal probe placed for monitoring and cooling blanket applied per RONNY Alvarado.? 2315: Patient's heart rate 140s, 5mg IV Lopressor ordered and admin per RONNY Alvarado with good effect.? 0115: Patient HR 140s on tele, confirmed via manual pulse. Additional 5mg IVP Lopressor administered per RONNY Alvarado, see MAR. 0230: Patient HR persistently 130s-140s on tele, temperature remains elevated despite cooling blanket and. PA notified. 0630: Patient temperature responsive to cooling blanket, see vitals. Patient resting comfortably, RR even and unlabored. Repositioned Q2HR, bed locked in lowest position, bed alarm on.
[2024-08-12] MEDS: Famotidine/PF 20 MG/2 ML VIAL IVPUSH ×2 (08:40→19:51)
[2024-08-12] MEDS: Magnesium Sulfate/H2O 2 GM/50 ML PIGGYBACK IV ×2 (08:42→22:07)
[2024-08-12] MEDS: Folic Acid 2 MG in 0.9 % Sodium Chloride 50 ML 100.4 MG IV (08:42)
--- NOTE | 2024-08-12 09:39 | PM.EVENT ---
Event Note Date of Service: 08/12/24 Event Note: Attempted to see the patient today Patient was arousable, responds to name, but is unable to answer questions or actively participate in interview or examination There was a significant amount of ecchymosis on the left shoulder to inspection Will attempt to follow-up tomorrow Time Spent With Patient Time: Total time managing care of this patient today ____ minutes.
--- NOTE | 2024-08-12 10:40 | PM.CCPN ---
Subjective Subjective Date of Service: 08/12/24 Interval History: Continues to be off Precedex drip for 48 hours now Poor mental status Critical Care Time (minutes): 35 Physical Exam Vital Signs: Vital Signs: Last Vital Signs Temp 100.0 F 08/12/24 10:00 Pulse 128 H 08/12/24 10:00 Resp 26 H 08/12/24 10:00 BP 114/63 08/12/24 10:00 Pulse Ox 93 08/12/24 10:00 O2 Del Method Room Air 08/12/24 10:00 O2 Flow Rate 2 08/11/24 18:00 FiO2 50 08/09/24 22:00 BMI result Body Mass Index 26.8 General: Chronically ill appearing and tired appearing, lying in the bed and mostly sleeping Nutritional Appearance: well nourished and overweight Eyes: appearance normal, both eyes and all related structures; Alignment and Position: alignment normal and position normal Neck: No lymphadenopathy, no thyromegaly Resp: bilateral air entry equal, crackles heard in lung bases Cardio: Regular rate, regular rhythm; Heart sounds: S1 normal heart sound present and S2 normal heart sound present GI: soft, nontender, no guarding, no hepatosplenomegaly : bladder normal to inspection, bladder normal to palpation, no renal angle tenderness Skin: no rashes or lesions noted and elasticity normal, right shoulder bruits Neuro: Not oriented to time place person, moves all extremities Objective Data Labs 08/12/24 04:40 08/12/24 04:40 Labs: Laboratory Results - last 24 hr 08/11/24 08/12/24 15:51 04:40 WBC 19.4 H RBC 2.57 L Hgb 9.3 L Hct 27.2 L MCV 105.8 H MCH 36.2 H MCHC 34.2 RDW 14.4 Plt Count 291 D MPV 10.3 Immature Gran % (Auto) 0.9 H Neut % (Auto) 77.1 H Lymph % (Auto) 6.1 L [place] % (Auto) 15.6 H Eos % (Auto) 0.0 Baso % (Auto) 0.3 Lymph # (Auto) 1.2 [place] # (Auto) 3.0 H Eos # (Auto) 0.0 Baso # (Auto) 0.1 Abs Immat Gran (auto) 0.18 H Absolute Neuts (auto) 15.0 H Absolute Nucleated RBC 0.040 H Nucleated RBC % (auto) 0.2 Smear Tech's Comments VERIFIED Sodium 147 H 148 H Potassium 3.5 3.6 Chloride 113 H 114 H Carbon Dioxide 22 23 Anion Gap 16 15 BUN 9 12 Creatinine 0.66 0.72 Estim Creat Clear Calc 126.6 116.1 Estimated GFR > 60 > 60 Random Glucose 112 137 H Calcium 7.5 L 8.1 L D Phosphorus 2.4 L 2.2 L Magnesium 2.5 2.2 Total Bilirubin 1.4 H 1.4 H AST 70 H 63 H ALT 28 28 Alkaline Phosphatase 95 106 Total Protein 6.2 L 6.7 Albumin 3.1 L 3.3 L Microbiology Microbiology Results: Microbiology 08/11/24 01:37 Sputum - Expectorated Gram Stain - Final 08/11/24 01:37 Sputum - Expectorated Sputum Culture - Preliminary Gram negative rebel 08/10/24 21:40 Blood - Venous Blood Culture - Preliminary No growth after 24 hours. 08/10/24 21:40 Blood - Venous Blood Culture - Preliminary No growth after 24 hours. 08/06/24 06:19 Blood - Venous Blood Culture - Final No growth after 5 days. 08/06/24 06:19 Blood - Venous Blood Culture - Final No growth after 5 days. Progress Note: A&P Assessment and plan (1) Hypomagnesemia: Status: Acute (2) Delirium tremens: Status: Acute (3) Hypokalemia: Status: Acute (4) Metabolic acidosis, increased anion gap: Status: Acute (5) Acidosis, lactic: Status: Acute (6) Fracture, humerus, proximal: Status: Acute (7) Alcohol withdrawal seizure with delirium: Status: Acute (8) Numbness and tingling in right hand: Status: Acute Plan Acute encephalopathy possibly due to alcohol withdrawal syndrome Off Precedex drip for 48hrs now. continue IM phenobarb at 130 mg q.4 hours Close neurological status monitoring in the ICU every hour continue folate and thiamine for chronic alcoholism Respiratory: Breathing stable on room air GI: on PPN for nutrition transaminitis: secondary to alcoholic liver disease Acute hypokalemia: Possibly secondary to hypomagnesemia, should improve with corrections in the PPN Potassium 3.6 this morning Acute Hypomagnesemia: Called the pharmacy to increase Mag in the PPN Improving 2.2 this morning Acute Hypophosphatemia: Due to poor or absent oral intake, poor reserves in the setting of chronic alcoholism Improving 2.7 this morning speech followup Acute hypernatremia: Due to poor oral intake We will corrected with PPN Heme: Chronic anemia- macrocytic anemia secondary to B12 and folate deficiency. Continue folic acid repletion closely monitor H&H, transfuse for hemoglobin less than 7 grams/deciliter Endocrine: Blood sugars under control Sliding scale insulin as needed Infectious disease: Negative pancultures On Zosyn for aspiration pneumonia Right shoulder dislocation and fracture: orthopedics on board, wants to wait till his neurological status improves Musculoskeletal: Decubitus ulcer prevention protocol Lines: Peripheral Prophylaxis: lovenox, famotidine Quality Stroke Does the patient have a stroke diagnosis?: No VTE Prior VTE?: No VTE Risk Level:: Medical - moderate - high VTE Device Contraindication: Treatment Not Indicated VTE Drug Contraindication: N/A - Med Ordered
[2024-08-12] MEDS: Potassium Phosphate/NS 15 MMOL/250 ML PLAST..BAG 62.5 MMOL IV ×2 (10:42→22:05)
[2024-08-12] MEDS: Piperacillin Sodium/Tazobactam 4.5 GM in 0.9 % Sodium Chloride 100 ML IV ×3 (11:21→22:15)
[2024-08-12] MEDS: Enoxaparin Sodium 40 MG/0.4 ML SYRINGE SUBCUT (11:22)
[2024-08-12] MEDS: PHENobarbitaL sodium 130 MG/ML VIAL IM ×2 (17:09→22:12)
--- NOTE | 2024-08-12 18:17 | PC.NURSE ---
Assumed care at 0700- Pt. awake, A&O to self only but calm, cooperative, and re-directable. Pt. remains of precedex. at approx 1700 pt. attempted to get out of bed multiple times, confused and unable to be redirected, PRN phenobarbital given per MAR with slight effect. Pt. Sinus tach on tele, HR 120s-130s- MD aware, no new orders at this time. 02 sats on RA 85-90%, 2L NC applied to maintain 02>90%- MD aware. Pt. with intermittent, strong, non-productive cough. NPO, oral care provided PRN. Pt. incontinent with multiple small, loose liquid BMs. Male Purwick changed and in place, 450 cc ismael urine output this shift. Low grade temps through shift- see VS flowsheetMD aware. Current temp 99.7. Repositioning performed Q2 HR, bed locked in lowest position, call whitten within reach, avasys camera in place for safety. Pt.s brother Lex updated by this RN via telephone. Plan of care ongoing.
[2024-08-12] MEDS: Parenteral Nutrition 1,800 ML 75 ML IV (21:06)
[2024-08-12 21:31] LABS: Alanine Aminotransferase 17 U/L (0-40); Alkaline Phosphatase 92 U/L (39-117); Anion Gap 13 (12-20); Aspartate Amino Transferase 46 U/L (5-37); Bilirubin Total 1.3 mg/dL (0.0-1.0); Blood Urea Nitrogen 13 mg/dL (9-16); Calcium 8.2 mg/dL (8.4-10.2); Carbon Dioxide 23 mmol/L (22-29); Chloride 115 mmol/L (96-108); Creatinine Clr Calc Pharmacy 134.8; Estimated Glomerular Filt Rate > 60; Glucose Random 134 mg/dL (60-115); Magnesium 1.8 mg/dL (1.6-2.6); Phosphorus 2.1 mg/dL (2.7-4.5); Potassium 2.9 mmol/L (3.3-5.1); Sodium 148 mmol/L (135-145)
[2024-08-12] MEDS: Potassium Chloride/H20 10 MEQ/100 ML PIGGYBACK 100 MEQ IV ×2 (22:10→23:11)
[2024-08-13] VITALS (34 sets, daily range): BP systolic 88–140; BP diastolic 56–80; PULSE 108–143; RESP 20–36; TEMP 36.4–38.9; O2SAT 90–100; BMI 26.7
[2024-08-13] MEDS: 0.9 % Sodium Chloride Flush 3 ML SYRINGE IVFLUSH ×3 (00:14→15:48)
[2024-08-13] MEDS: Potassium Chloride/H20 10 MEQ/100 ML PIGGYBACK 100 MEQ IV ×2 (00:14→01:16)
[2024-08-13] MEDS: Albuterol/Iprat 2.5/0.5MG 3 ML AMPUL.NEB INHALE ×4 (04:45→19:31)
[2024-08-13] MEDS: Piperacillin Sodium/Tazobactam 4.5 GM in 0.9 % Sodium Chloride 100 ML IV ×3 (05:31→16:12)
[2024-08-13 05:36] LABS: Hematocrit 23.3 % (42.0-52.0); Mean Corpuscular HGB Conc 34.3 g/dl (31.0-36.0); Mean Platelet Volume 10.7 fL (9.4-12.4); NRBC Pct Auto 0.3 /100WBC (0.0-0.2); PLT CLUMP 1; Red Blood Count 2.22 X10*6/uL (4.60-5.80); Red Cell Distribution Width 14.5 % (11.0-16.0)
[2024-08-13 05:37] LABS: Platelet Count 319 X10*3/uL (160-400)
[2024-08-13 05:55] LABS: Alanine Aminotransferase 19 U/L (0-40); Albumin Level 3.1 g/dL (3.5-5.0); Alkaline Phosphatase 111 U/L (39-117); Anion Gap 15 (12-20); Aspartate Amino Transferase 58 U/L (5-37); Blood Urea Nitrogen 12 mg/dL (9-16); Calcium 8.1 mg/dL (8.4-10.2); Carbon Dioxide 21 mmol/L (22-29); Chloride 115 mmol/L (96-108); Creatinine Clr Calc Pharmacy 130.6; Estimated Glomerular Filt Rate > 60; Glucose Random 130 mg/dL (60-115); Phosphorus 4.1 mg/dL (2.7-4.5); Potassium 3.6 mmol/L (3.3-5.1); Sodium 147 mmol/L (135-145); Total Protein 6.4 g/dL (6.5-8.0)
[2024-08-13 05:57] LABS: Band Neutrophils Percent 21 % (3-5); Lymphocytes Absolute Manual 1.5 X10*3/uL (1.2-4.9); Lymphocytes Percent Manual 7 % (20-40); Monocytes Absolute Manual 2.9 X10*3/uL (0.1-1.2); Monocytes Percent Manual 13 % (2-11); Neutrophils Absolute Manual 17.6 X10*3/uL (2.0-8.3); Neutrophils Percent Manual 59 % (45-73)
[2024-08-13 05:58] LABS: Macrocytosis 1+ (5-14) /OIF; Ovalocytes 1+ (5-14) /OIF; Platelet Estimate NORMAL (NORMAL); Platelet Morphology Comment NORMAL; RBC Morphology NOTED; Target Cells 1+ (5-14) /OIF
[2024-08-13 05:59] LABS: Dohle Bodies PRESENT; Hypochromasia 1+ (5-14) /OIF; Polychromasia 1+ (0-2) /OIF; Toxic Granulation PRESENT; Toxic Vacuolation PRESENT
[2024-08-13] MEDS: dilTIAZem HCL 50 MG/10 ML VIAL 10 MG IVPUSH (06:40)
[2024-08-13] MEDS: fentaNYL citrate/PF 100 MCG/2 ML VIAL 50 MCG IVPUSH (07:12)
--- NOTE | 2024-08-13 07:14 | PC.NURSE ---
Assumed care at 1900. Patient alert to self, remains disoriented to place/time/situation. Calm and cooperative, easily redirectable. Follows most commands, with occasional confusion. ST on tele, HR 130s, RONNY Alvarado aware. O2 sats 92-94% on 2LNC, patient tachypneic but appearing comfortable and unlabored. Abdomen soft and round, continues to be incontinent of stool. PPN infusing per MAR. Male purewick in place, draining clear ismael urine. Low grade temps continue, patient, cooling blanket remains in place but off at this time. RUE secured in sling, slightly edematous and profoundly bruised. Scattered bruising to left arm. Blanchable redness to buttock with pink foam in place. Repositioned Q2HR, bed locked in lowest position, bed alarm on, camera in place for safety.? Approx 0630: Patient HR 140s sustaining, O2 sats 86-89% on 4L NC. This RN attempted suctioning with?marginal effect, PA notified. 10mg IVP Cardizem ordered by RONNY Alvarado. RT notified, to bedside. RONNY Alvarado to bedside, 50mg fentanyl IVP given per PA (see MAR) for WOB with good effect.? 0700: Report given to oncoming RN.
[2024-08-13 07:39] LABS: ABG Base Excess 4.2 mmol/L; ABG HCO3 25 mmol/L (22-26); ABG pCO2 28 mmHg (32-45); ABG pH 7.57 (7.35-7.45); ABG pO2 67 mmHg (83-108)
[2024-08-13] MEDS: Famotidine/PF 20 MG/2 ML VIAL IVPUSH ×2 (08:26→19:34)
[2024-08-13] MEDS: Folic Acid 2 MG in 0.9 % Sodium Chloride 50 ML 100.4 MG IV (08:27)
--- NOTE | 2024-08-13 09:32 | PM.EVENT ---
Event Note Date of Service: 08/13/24 Event Note: check and with the patient's nurse this morning, mental status has not improved since yesterday and patient is still only alert and oriented to name Will attempt to follow-up tomorrow Time Spent With Patient Time: Total time managing care of this patient today ____ minutes.
[2024-08-13] MEDS: Enoxaparin Sodium 40 MG/0.4 ML SYRINGE SUBCUT (11:26)
--- NOTE | 2024-08-13 11:56 | PM.CCPN ---
Subjective Subjective Date of Service: 08/13/24 Critical Care Time (minutes): 35 Comment: Episode of aspiration earlier this morning currently on 4 L nasal cannula oxygen Still remains confused Physical Exam Vital Signs: Vital Signs: Last Vital Signs Temp 99.7 F 08/13/24 10:00 Pulse 133 H 08/13/24 11:00 Resp 28 H 08/13/24 11:00 BP 123/69 08/13/24 11:00 Pulse Ox 90 L 08/13/24 11:00 O2 Del Method Nasal Cannula 08/13/24 11:00 O2 Flow Rate 4 08/13/24 11:00 FiO2 50 08/09/24 22:00 BMI result Body Mass Index 26.7 General: Middle-aged male lying in the bed, mostly calm but episodes of trying to move out of bed Nutritional Appearance: well nourished and overweight Eyes: appearance normal, both eyes and all related structures; Alignment and Position: alignment normal and position normal Neck: No lymphadenopathy, no thyromegaly Resp: bilateral air entry equal, occasional added sounds present Cardio: Regular rate, regular rhythm; Heart sounds: S1 normal heart sound present and S2 normal heart sound present GI: soft, nontender, no guarding, no hepatosplenomegaly : bladder normal to inspection, bladder normal to palpation, no renal angle tenderness Skin: no rashes or lesions noted and elasticity normal Neuro: Not oriented to time place person and moves all extremities Objective Data Labs 08/13/24 05:18 08/13/24 05:18 Labs: Laboratory Results - last 24 hr 08/12/24 08/13/24 08/13/24 20:50 05:18 05:18 WBC 22.0 H RBC 2.22 L Hgb 8.0 L Hct 23.3 L MCV 105.0 H MCH 36.0 H MCHC 34.3 RDW 14.5 Plt Count 319 MPV 10.7 Immature Gran % (Auto) Cancelled Neut % (Auto) Cancelled Lymph % (Auto) Cancelled [place] % (Auto) Cancelled Eos % (Auto) Cancelled Baso % (Auto) Cancelled Lymph # (Auto) Cancelled [place] # (Auto) Cancelled Eos # (Auto) Cancelled Baso # (Auto) Cancelled Abs Immat Gran (auto) Cancelled Absolute Neuts (auto) Cancelled Absolute Nucleated RBC 0.070 H Nucleated RBC % (auto) 0.3 H Neutrophils % (Manual) 59 Band Neutrophils % 21 H Lymphocytes % (Manual) 7 L Monocytes % (Manual) 13 H Abs Neuts (Manual) 17.6 H Lymphocytes # (Manual) 1.5 Monocytes # (Manual) 2.9 H Toxic Granulation PRESENT Toxic Vacuolation PRESENT Dohle Bodies PRESENT Platelet Estimate NORMAL Plt Morphology Comment NORMAL RBC Morphology NOTED Polychromasia 1+ (0-2) Hypochromasia 1+ (5-14) Macrocytosis 1+ (5-14) Target Cells 1+ (5-14) Ovalocytes 1+ (5-14) O2 Saturation ABG pH at Pt Temp ABG pCO2 at Pt Temp ABG pO2 at Pt Temp ABG HCO3 ABG Base Excess (Actual) Sodium 148 H Cancelled 147 H Potassium 2.9 L* Cancelled Chloride 115 H Carbon Dioxide 23 Anion Gap 13 BUN 13 Creatinine 0.62 Estim Creat Clear Calc 134.8 Estimated GFR > 60 Random Glucose 134 H Calcium 8.2 L Phosphorus 2.1 L Magnesium 1.8 Total Bilirubin 1.3 H AST 46 H ALT 17 Alkaline Phosphatase 92 Total Protein 6.0 L Albumin 3.0 L 08/13/24 08/13/24 08/13/24 05:18 05:18 05:18 WBC RBC Hgb Hct MCV MCH MCHC RDW Plt Count MPV Immature Gran % (Auto) Neut % (Auto) Lymph % (Auto) [place] % (Auto) Eos % (Auto) Baso % (Auto) Lymph # (Auto) [place] # (Auto) Eos # (Auto) Baso # (Auto) Abs Immat Gran (auto) Absolute Neuts (auto) Absolute Nucleated RBC Nucleated RBC % (auto) Neutrophils % (Manual) Band Neutrophils % Lymphocytes % (Manual) Monocytes % (Manual) Abs Neuts (Manual) Lymphocytes # (Manual) Monocytes # (Manual) Toxic Granulation Toxic Vacuolation Dohle Bodies Platelet Estimate Plt Morphology Comment RBC Morphology Polychromasia Hypochromasia Macrocytosis Target Cells Ovalocytes O2 Saturation ABG pH at Pt Temp ABG pCO2 at Pt Temp ABG pO2 at Pt Temp ABG HCO3 ABG Base Excess (Actual) Sodium Potassium 3.6 D Chloride Cancelled 115 H Carbon Dioxide Cancelled 21 L Anion Gap Cancelled BUN Creatinine Estim Creat Clear Calc Estimated GFR Random Glucose Calcium Phosphorus Magnesium Total Bilirubin AST ALT Alkaline Phosphatase Total Protein Albumin 08/13/24 08/13/24 08/13/24 05:18 05:18 05:18 WBC RBC Hgb Hct MCV MCH MCHC RDW Plt Count MPV Immature Gran % (Auto) Neut % (Auto) Lymph % (Auto) [place] % (Auto) Eos % (Auto) Baso % (Auto) Lymph # (Auto) [place] # (Auto) Eos # (Auto) Baso # (Auto) Abs Immat Gran (auto) Absolute Neuts (auto) Absolute Nucleated RBC Nucleated RBC % (auto) Neutrophils % (Manual) Band Neutrophils % Lymphocytes % (Manual) Monocytes % (Manual) Abs Neuts (Manual) Lymphocytes # (Manual) Monocytes # (Manual) Toxic Granulation Toxic Vacuolation Dohle Bodies Platelet Estimate Plt Morphology Comment RBC Morphology Polychromasia Hypochromasia Macrocytosis Target Cells Ovalocytes O2 Saturation ABG pH at Pt Temp ABG pCO2 at Pt Temp ABG pO2 at Pt Temp ABG HCO3 ABG Base Excess (Actual) Sodium Potassium Chloride Carbon Dioxide Anion Gap 15 BUN Cancelled 12 Creatinine Cancelled 0.64 Estim Creat Clear Calc Cancelled Estimated GFR Random Glucose Calcium Phosphorus Magnesium Total Bilirubin AST ALT Alkaline Phosphatase Total Protein Albumin 08/13/24 08/13/24 08/13/24 05:18 05:18 05:18 WBC RBC Hgb Hct MCV MCH MCHC RDW Plt Count MPV Immature Gran % (Auto) Neut % (Auto) Lymph % (Auto) [place] % (Auto) Eos % (Auto) Baso % (Auto) Lymph # (Auto) [place] # (Auto) Eos # (Auto) Baso # (Auto) Abs Immat Gran (auto) Absolute Neuts (auto) Absolute Nucleated RBC Nucleated RBC % (auto) Neutrophils % (Manual) Band Neutrophils % Lymphocytes % (Manual) Monocytes % (Manual) Abs Neuts (Manual) Lymphocytes # (Manual) Monocytes # (Manual) Toxic Granulation Toxic Vacuolation Dohle Bodies Platelet Estimate Plt Morphology Comment RBC Morphology Polychromasia Hypochromasia Macrocytosis Target Cells Ovalocytes O2 Saturation ABG pH at Pt Temp ABG pCO2 at Pt Temp ABG pO2 at Pt Temp ABG HCO3 ABG Base Excess (Actual) Sodium Potassium Chloride Carbon Dioxide Anion Gap BUN Creatinine Estim Creat Clear Calc 130.6 Estimated GFR Cancelled > 60 Random Glucose Cancelled 130 H Calcium Cancelled Phosphorus Magnesium Total Bilirubin AST ALT Alkaline Phosphatase Total Protein Albumin 08/13/24 08/13/24 08/13/24 05:18 05:18 05:18 WBC RBC Hgb Hct MCV MCH MCHC RDW Plt Count MPV Immature Gran % (Auto) Neut % (Auto) Lymph % (Auto) [place] % (Auto) Eos % (Auto) Baso % (Auto) Lymph # (Auto) [place] # (Auto) Eos # (Auto) Baso # (Auto) Abs Immat Gran (auto) Absolute Neuts (auto) Absolute Nucleated RBC Nucleated RBC % (auto) Neutrophils % (Manual) Band Neutrophils % Lymphocytes % (Manual) Monocytes % (Manual) Abs Neuts (Manual) Lymphocytes # (Manual) Monocytes # (Manual) Toxic Granulation Toxic Vacuolation Dohle Bodies Platelet Estimate Plt Morphology Comment RBC Morphology Polychromasia Hypochromasia Macrocytosis Target Cells Ovalocytes O2 Saturation ABG pH at Pt Temp ABG pCO2 at Pt Temp ABG pO2 at Pt Temp ABG HCO3 ABG Base Excess (Actual) Sodium Potassium Chloride Carbon Dioxide Anion Gap BUN Creatinine Estim Creat Clear Calc Estimated GFR Random Glucose Calcium 8.1 L Phosphorus Cancelled 4.1 Magnesium Cancelled 2.0 Total Bilirubin 1.0 AST 58 H ALT 19 Alkaline Phosphatase 111 Total Protein 6.4 L Albumin 3.1 L 08/13/24 07:29 WBC RBC Hgb Hct MCV MCH MCHC RDW Plt Count MPV Immature Gran % (Auto) Neut % (Auto) Lymph % (Auto) [place] % (Auto) Eos % (Auto) Baso % (Auto) Lymph # (Auto) [place] # (Auto) Eos # (Auto) Baso # (Auto) Abs Immat Gran (auto) Absolute Neuts (auto) Absolute Nucleated RBC Nucleated RBC % (auto) Neutrophils % (Manual) Band Neutrophils % Lymphocytes % (Manual) Monocytes % (Manual) Abs Neuts (Manual) Lymphocytes # (Manual) Monocytes # (Manual) Toxic Granulation Toxic Vacuolation Dohle Bodies Platelet Estimate Plt Morphology Comment RBC Morphology Polychromasia Hypochromasia Macrocytosis Target Cells Ovalocytes O2 Saturation 92.0 ABG pH at Pt Temp 7.57 H ABG pCO2 at Pt Temp 28 L ABG pO2 at Pt Temp 67 L ABG HCO3 25 ABG Base Excess (Actual) 4.2 Sodium Potassium Chloride Carbon Dioxide Anion Gap BUN Creatinine Estim Creat Clear Calc Estimated GFR Random Glucose Calcium Phosphorus Magnesium Total Bilirubin AST ALT Alkaline Phosphatase Total Protein Albumin Microbiology Microbiology Results: Microbiology 08/11/24 01:37 Sputum - Expectorated Gram Stain - Final 08/11/24 01:37 Sputum - Expectorated Sputum Culture - Final Escherichia coli 08/10/24 21:40 Blood - Venous Blood Culture - Preliminary No growth after 48 hours. 08/10/24 21:40 Blood - Venous Blood Culture - Preliminary No growth after 48 hours. 08/06/24 06:19 Blood - Venous Blood Culture - Final No growth after 5 days. 08/06/24 06:19 Blood - Venous Blood Culture - Final No growth after 5 days. Progress Note: A&P Assessment and plan (1) Delirium tremens: Status: Acute (2) Hypomagnesemia: Status: Acute (3) Hypokalemia: Status: Acute (4) Metabolic acidosis, increased anion gap: Status: Acute (5) Alcohol withdrawal seizure with delirium: Status: Acute (6) Numbness and tingling in right hand: Status: Acute Plan Acute encephalopathy possibly due to alcohol withdrawal syndrome Off Precedex drip for 5 days now, mentation still poor possibly due to Korsakoff syndrome continue as neeed IM phenobarb at 130 mg q.4 hours Close neurological status monitoring in the ICU every hour continue folate and thiamine for chronic alcoholism/Korsakoff syndrome Respiratory: Breathing stable on 4litres nasal canula event of aspiration this morning GI: on PPN for nutrition transaminitis: secondary to alcoholic liver disease Acute hypernatremia: Due to poor oral intake We will correct with PPN Heme: Chronic anemia- macrocytic anemia secondary to B12 and folate deficiency. Continue folic acid repletion closely monitor H&H, transfuse for hemoglobin less than 7 grams/deciliter Endocrine: Blood sugars under control Sliding scale insulin as needed Infectious disease: Negative pancultures On Zosyn for aspiration pneumonia Right shoulder dislocation and fracture: orthopedics on board, wants to wait till his neurological status improves Musculoskeletal: Decubitus ulcer prevention protocol Lines: Peripheral Prophylaxis: lovenox, famotidine Quality Stroke Does the patient have a stroke diagnosis?: No VTE Prior VTE?: No VTE Risk Level:: Medical - moderate - high VTE Device Contraindication: Treatment Not Indicated VTE Drug Contraindication: N/A - Med Ordered
[2024-08-13 12:01] LABS: ABG Refer to POC result
[2024-08-13 12:56] LABS: Ammonia 29 umol/L (13-55)
[2024-08-13] MEDS: Labetalol HCL 100 MG/20 ML VIAL 20 MG IVPUSH (17:20)
[2024-08-13] MEDS: fentaNYL citrate/PF 100 MCG/2 ML VIAL 25 MCG IVPUSH (17:35)
[2024-08-13] MEDS: Lactated Ringers 500 ML 999 ML IV (17:35)
--- NOTE | 2024-08-13 17:52 | PC.NURSE ---
Assumed care at 0700- Pt. remains A&O to self only, calm and redirectable. Slept in naps through majority of the day. Stach on tele, HR sustaining 130s- MD aware. NC 4L, O2 sats 90-92%. Incontinent x2 with small amt. loose brown stool. Male purewick remains in place, draining dark ismael urine. At approx 1700, pt. laid flat and rolled for care- pt. desatting lows 80s, WOB increased, RR 30s-40s, HR sustaining >140- MD notified. 25 mcg fentanyl given for WOB with good effect. Pt. placed on HFNC 40L 40% by RT, O2 sats >92%. 20 mg IVP labetelol given per MAR with good effect on HR (100s-110s). SBPs then decreased 70s-80s- MD notified. 500cc LR bolus given per MAR with good effect- SBPs 80s-90s with MAPs > 65, MD aware. Tmax 101.3, pt. packed with ice. Q2 repositioning performed, oral care performed PRN. Pt.s brother Lex updated via telephone by this RN. Plan of care ongoing.
[2024-08-13] MEDS: Ketorolac Tromethamine 15 MG/ML VIAL IVPUSH (21:02)
[2024-08-13] MEDS: Albumin Human 25 % 100 ML 133.33 ML IV ×2 (22:24→23:09)
[2024-08-14] VITALS (32 sets, daily range): BP systolic 93–130; BP diastolic 50–97; PULSE 100–146; RESP 20–44; TEMP 36.5–39.5; O2SAT 90–100; BMI 27.9
[2024-08-14] MEDS: Piperacillin Sodium/Tazobactam 4.5 GM in 0.9 % Sodium Chloride 100 ML IV ×2 (00:06→04:03)
[2024-08-14] MEDS: 0.9 % Sodium Chloride Flush 3 ML SYRINGE IVFLUSH ×3 (00:07→16:08)
[2024-08-14] MEDS: Albuterol/Iprat 2.5/0.5MG 3 ML AMPUL.NEB INHALE ×4 (04:09→20:14)
[2024-08-14 05:05] LABS: Mean Corpuscular HGB Conc 33.3 g/dl (31.0-36.0); Mean Corpuscular Hemoglobin 35.4 pg (27.0-33.0); Mean Corpuscular Volume 106.1 fL (80.0-98.0); Mean Platelet Volume 11.2 fL (9.4-12.4); NRBC Pct Auto 0.5 /100WBC (0.0-0.2); PLT CLUMP 1; Red Blood Count 1.98 X10*6/uL (4.60-5.80); Red Cell Distribution Width 15.2 % (11.0-16.0); White Blood Count 16.1 X10*3/uL (4.8-10.8)
[2024-08-14 05:09] LABS: Platelet Count 233 X10*3/uL (160-400)
[2024-08-14 05:15] LABS: Anion Gap 16 (12-20); Blood Urea Nitrogen 18 mg/dL (9-16); Calcium 7.9 mg/dL (8.4-10.2); Carbon Dioxide 22 mmol/L (22-29); Chloride 113 mmol/L (96-108); Creatinine Clr Calc Pharmacy 107.1; Estimated Glomerular Filt Rate > 60; Glucose Random 106 mg/dL (60-115); Magnesium 1.8 mg/dL (1.6-2.6); Phosphorus 4.4 mg/dL (2.7-4.5); Potassium 3.2 mmol/L (3.3-5.1); Sodium 148 mmol/L (135-145)
[2024-08-14 05:18] LABS: Band Neutrophils Percent 16 % (3-5); Lymphocytes Absolute Manual 1.4 X10*3/uL (1.2-4.9); Lymphocytes Percent Manual 9 % (20-40); Monocytes Percent Manual 6 % (2-11); Neutrophils Absolute Manual 13.7 X10*3/uL (2.0-8.3); Neutrophils Percent Manual 69 % (45-73); RBC Morphology NOTED
[2024-08-14 05:19] LABS: Large Platelet PRESENT; Macrocytosis 2+ (15-30) /OIF; Ovalocytes 1+ (5-14) /OIF; Platelet Estimate NORMAL (NORMAL); Platelet Morphology Comment NOTED; Toxic Granulation PRESENT; Toxic Vacuolation PRESENT
[2024-08-14] MEDS: Pantoprazole Sodium 40 MG/10 ML VIAL IVPUSH (05:33)
[2024-08-14] MEDS: Potassium Chloride/H20 10 MEQ/100 ML PIGGYBACK 100 MEQ IV ×4 (05:35→10:25)
--- NOTE | 2024-08-14 06:06 | PC.NURSE ---
Assumed care at 1900. Patient neuro status remains unchanged: alert to self only, but pleasant and cooperative. ST on tele, HR 110s-130s. HiFlo NC in place, 40L/40%FiO2. Lung sounds dim, crackles in the bases. Patient encouraged to cough?and expectorate secretions. Abdomen soft and round, PPN running per JUL. One large liquid orange BM overnight. Male purewick in place draining clear ismael urine. Large bruise to right shoulder, diffuse bruising to extremities. Patient repositioned and boosted to promote oxygenation, patient began desaturating to mid-80s. Encouraged to cough and deep breathe without much success. RT notified, to bedside. HFNC titrated to 50L/50% FiO2 and placed in high medina's with good effect. Tmax 102.2, 15mg IVP Toradol ordered and administered per JUL. Oral care given PRN for dry mouth. Bed locked in lowest position, bed alarm on, camera in place for safety. 2199: Patient PPN held due to possible IV infiltration and limited access options, PA aware.? 2229: Patient with consistently borderline BPs, PA notified. 2 bags albumin ordered and administered per JUL.? Now: AM labs show low H&H, RONNY Alvarado aware. Type and screen and OBX ordered, and electrolytes replaced, see JUL. Patient resting, appearing comfortable. Bed remains locked in lowest position, bed alarm on, camera in place.?
[2024-08-14 06:45] LABS: Hematocrit 20.3 % (42.0-52.0)
[2024-08-14] MEDS: Folic Acid 2 MG in 0.9 % Sodium Chloride 50 ML 100.4 MG IV (08:47)
--- NOTE | 2024-08-14 09:53 | PC.NURSE ---
Addendum entered by Timbo Brenner RN 08/14/24 20:03: stayed late to care for patient and facilitate transfer to telemetry unit. patient taken at 20:03 by med-tele charge machine operator, RT, and transporter staff with telemetry monitoring. handoff done at approx 18:30. Original Note: assumed care 0700 on 08/14/24 - patient alert to self, location, month and year. holding vague conversations with confused thought process. states he is going to visit his parents who lives upstairs, when asked to clarify states they live at [facility]. to my knowledge he is from home with mom. oxygen demands continue to increase... titrated HiFlo 40L 40% up 40L 50%... time of note approx 10:00
[2024-08-14] MEDS: Enoxaparin Sodium 40 MG/0.4 ML SYRINGE SUBCUT (10:25)
[2024-08-14 11:04] LABS: Triglycerides 118 mg/dL (<150)
--- NOTE | 2024-08-14 11:34 | MHC.CLN ---
F/U DISCUSSED AT ROUNDS WITH PT RECEIVED PPN X 2 DAYS AND THEN STOPPED 08/13 PPN TO REMAINS D/C PER QUALITY COMPLIANCE MANAGER ADVANCED DIET TO FULL LIQUIDS WITH NT LIQUIDS WILL ADD ENSURE TO INCREASE KCALS WITH MEAL TRAYS SUPP TID WILL PROVIDE 1050KCALS, 60G PROTEIN MONITOR PO INTAKE CLOSELY
[2024-08-14] MEDS: Acetaminophen Oral Liquid 650 MG/20.3 ML SOLUTION PO ×2 (11:57→19:48)
[2024-08-14] MEDS: Metoprolol Succinate ER 50 MG TAB.ER.24H PO (12:16)
[2024-08-14] MEDS: cefTRIAXone sodium 1 GM VIAL IVPUSH (12:17)
--- NOTE | 2024-08-14 12:29 | P.PNCC_ITS ---
Subjective Subjective Date of Service: 08/14/24 Interval History: 54-year-old gentleman with underlying alcohol abuse admitted with delirium tremens after suffering a mechanical fall that right shoulder fracture. Patient requiring initiation Precedex drip and admission to the intensive care unit for close monitoring. Orthopedic service has been consulted. Hospital course further complicated by acute hypoxic respiratory failure secondary to small recurrent pulmonary aspirations. No events overnight. Improved on swallow evaluation, cleared for nectar thick liquid diet. Critical Care Time (minutes): 0 Physical Exam 2 Vital Signs: Vital Signs: Last Vital Signs Temp 101.7 F H 08/14/24 09:00 Pulse 137 H 08/14/24 12:16 Resp 43 H 08/14/24 11:23 BP 123/81 08/14/24 12:16 Pulse Ox 95 08/14/24 09:00 O2 Del Method High Flow Nasal C annula 08/14/24 09:00 O2 Flow Rate 40 08/14/24 09:00 FiO2 40 08/14/24 09:00 BMI result Body Mass Index 27.9 Const: General: no acute distress, alert and awake Eyes: Sclerae: sclerae normal EOM: EOMs intact bilaterally Neck: Neck: Yes no lymphadenopathy, Yes trachea midline and Yes supple Resp: Effort & Inspection: no respiratory distress and tachypneic A uscultation: crackles (Mild bibasilar) Cardio: Rate: tachycardic Rhythm: regular rhythm Heart sounds: no gallops, no murmurs and no rubs GI: Palpation (GI): Soft to palpation and Other GI palpation findings present ( Nontender) Auscultation: normal bowel sounds Extrem: General: Yes no pedal edema, No clubbing and No cyanosis Objective Data Labs 08/14/24 06:30 08/14/24 04:25 Labs: Laboratory Results - last 24 hr 08/13/24 08/14/24 08/14/24 12:38 04:25 06:30 WBC 16.1 H RBC 1.98 L Hgb 7.0 L* 7.0 L* Hct 21.0 L* 20.3 L* MCV 106.1 H MCH 35.4 H MCHC 33.3 RDW 15.2 Plt Count 233 D MPV 11.2 Immature Gran % (Auto) Cancelled Neut % (Auto) Cancelled Lymph % (Auto) Cancelled [place] % (Auto) Cancelled Eos % (Auto) Cancelled Baso % (Auto) Cancelled Lymph # (Auto) Cancelled [place] # (Auto) Cancelled Eos # (Auto) Cancelled Baso # (Auto) Cancelled Abs Immat Gran (auto) Cancelled Absolute Neuts (auto) Cancelled Absolute Nucleated RBC 0.080 H Nucleated RBC % (auto) 0.5 H Neutrophils % (Manual) 69 Band Neutrophils % 16 H Lymphocytes % (Manual) 9 L Monocytes % (Manual) 6 Abs Neuts (Manual) 13.7 H Lymphocytes # (Manual) 1.4 Monocytes # (Manual) 1.0 Toxic Granulation PRESENT Toxic Vacuolation PRESENT Platelet Estimate NORMAL Large Platelets PRESENT Plt Morphology Comment NOTED RBC Morphology NOTED Macrocytosis 2+ (15-30) Ovalocytes 1+ (5-14) Sodium 148 H Potassium 3.2 L Chloride 113 H Carbon Dioxide 22 Anion Gap 16 BUN 18 H Creatinine 0.78 Estim Creat Clear Calc 107.1 Estimated GFR > 60 Random Glucose 106 Calcium 7.9 L Phosphorus 4.4 Magnesium 1.8 Ammonia 29 Triglycerides 118 Blood Type A Positive Antibody Screen NEGATIVE Crossmatch See Detail Microbiology Microbiology Results: Microbiology 08/11/24 01:37 Sputum - Expectorated Gram Stain - Final 08/11/24 01:37 Sputum - Expectorated Sputum Culture - Final Escherichia coli 08/10/24 21:40 Blood - Venous Blood Culture - Preliminary No growth after 48 hours. 08/10/24 21:40 Blood - Venous Blood Culture - Preliminary No growth after 48 hours. 08/06/24 06:19 Blood - Venous Blood Culture - Final No growth after 5 days. 08/06/24 06:19 Blood - Venous Blood Culture - Final No growth after 5 days. Progress Note: A&P Assessment and plan (1) Delirium tremens: Status: Acute (2) Shoulder fracture, right: Status: Acute (3) Acute respiratory failure with hypoxia: Status: Acute (4) Pulmonary aspiration: Status: Acute Plan Assessment: 54-year-old gentleman admitted after mechanical fall resulting in shoulder fracture also with underlying delirium tremens requiring sedative drips Plan: Neuro: Delirium tremens, improved, titrated off sedative drips. Cardiac: No acute issues. Pulmonary: Acute hypoxic respiratory failure secondary to pulmonary aspirations, improving. Continue to titrate off supplemental oxygen as tolerated. Renal: No acute issues. Endo: No acute issues. GI: No acute issues. ID: Sputum culture with ross susceptible E coli, continue ceftriaxone. Heme/Onc: No acute issues. Psych: No acute issues. Miscellaneous: Shoulder fracture, orthopedic surgery following. Prophylaxis: Heparin Diet: [place] thick full liquid Quality Stroke Does the patient have a stroke diagnosis?: No VTE Prior VTE?: No VTE Risk Level:: Medical - moderate - high VTE Device Contraindication: Treatment Not Indicated VTE Drug Contraindication: N/A - Med Ordered
--- NOTE | 2024-08-14 13:54 | MHC.CM.PN ---
Pt continues care in ICU: seen by SPEECH and diet upgraded. Pt making clinical progress and will transfer to the medical floor today. Pt should have a CARE team consult before returning to home w/parents. CM to follow.
--- NOTE | 2024-08-14 14:58 | MHC.SL.SWA ---
Speech Pathologist Impression: Dysphagia secondary to weakness and respiratory status Risk of Aspiration Due to: History of Pneumonia Reduced Cognition Dysphasia Diet Status: Liquid Consistency and Strategies for Safe Swallow: Liquid Intake Recommendation: [place] Thick Liquid Intake Strategies: Liquids by Teaspoon Only Solid Food Consistency: Dietary Recommendations: liquid diet Additional Modifications to Solid Foods: Oral Medication Intake: NPO Please contact the pharmacy regarding appropriate crushable or liquid drug formulations that are available whenever modified delivery is recommended. Compensatory Strategies and Precautions to be Taken for Safe Swallow: Sitting Upright (90 deg) Liquids from Spoon Small Bites and Sips Supervision While Eating and Drinking for Safe Swallow: Total Supervision (1:1) Foods to Avoid: Swallowing Recommended Treatments: Compens. Strategy Educat. Recommendation for Speech: Inpatient Speech Therapy Comment: Pt presents with mild oral dysphagia d/t weakness, pt is edentulous but typically wears dentures. Increased work of breathing observed during trials across length of bedside evaluation. Pt coughed immediately on thin liquid (water). Pt tolerated tsps of NTL and small amounts of pudding. [employer]KE [employer]TER consulted with RN, pt benefits from cues to slow pace, needs 1:1 assist with PO. Recc liquid diet thickened to nectar consistency with conservative amounts, aspiration precautions. F[employer] B[employer]KE FITTER will follow to re-assess and advance. MD notified. Frequency/Duration: Date Range for Service Req: M-F Daily Timeline to reassess: [place] Clinican/Clinical Fellow: No Supervisory Statement: I have reviewed and agree with the student/clinical fellow's documentation: N/A Speech Language Pathologist: Selina Hernandez M.S., [facility]-[employer]
[2024-08-15] VITALS (22 sets, daily range): BP systolic 109–160; BP diastolic 68–86; PULSE 103–126; RESP 16–32; TEMP 36.4–39.6; O2SAT 88–96; BMI 21.5
[2024-08-15] MEDS: Albuterol/Iprat 2.5/0.5MG 3 ML AMPUL.NEB INHALE ×4 (03:19→20:41)
[2024-08-15] MEDS: Folic Acid 2 MG in 0.9 % Sodium Chloride 50 ML 100 MG IV (08:53)
[2024-08-15] MEDS: cefTRIAXone sodium 1 GM VIAL IVPUSH (08:53)
[2024-08-15] MEDS: 0.9 % Sodium Chloride Flush 3 ML SYRINGE IVFLUSH (08:54)
[2024-08-15] MEDS: Metoprolol Succinate ER 50 MG TAB.ER.24H PO (08:54)
[2024-08-15 09:04] LABS: Anion Gap 16 (12-20); Blood Urea Nitrogen 14 mg/dL (9-16); Calcium 8.3 mg/dL (8.4-10.2); Carbon Dioxide 22 mmol/L (22-29); Chloride 112 mmol/L (96-108); Creatinine Clr Calc Pharmacy 110.3; Estimated Glomerular Filt Rate > 60; Glucose Random 95 mg/dL (60-115); Magnesium 1.3 mg/dL (1.6-2.6); Phosphorus 3.8 mg/dL (2.7-4.5); Potassium 2.9 mmol/L (3.3-5.1); Sodium 147 mmol/L (135-145)
[2024-08-15] MEDS: Potassium Chloride ER 20 MEQ TAB.ER.PRT 40 MEQ PO (09:28)
[2024-08-15] MEDS: Magnesium Sulfate/H2O 2 GM/50 ML PIGGYBACK IV (09:28)
--- NOTE | 2024-08-15 09:36 | P.PNIM_ITS ---
Subjective Subjective Date of Service: 08/15/24 Interval History: weakness Physical Exam 2 Vital Signs: Vital Signs: Last Vital Signs Temp 100.0 F 08/15/24 07:56 Pulse 118 H 08/15/24 08:54 Resp 20 08/15/24 08:09 BP 144/69 H 08/15/24 08:54 Pulse Ox 92 08/15/24 07:56 O2 Del Method High Flow Nasal C annula 08/15/24 07:56 O2 Flow Rate 40 08/15/24 07:56 FiO2 55 08/15/24 07:56 BMI result Body Mass Index 21.5 General: AO X 3, ill-appearing Resp: C crackles bilateral, no accessory muscles used CVS: S1,S2,RRR GI: soft, non tender, non distended Neuro: motor grossly intact, alert Psych: appropriate affect, appropriate insight Objective Data Active Medications Acetaminophen (Acetaminophen Oral Liquid 650 Mg/20.3 Ml Solution) 650 mg PO Q6H PRN PRN Reason: Fever >101 Last Admin: 08/14/24 19:48 Dose: 650 mg Documented By: ARDEN Albuterol Sulfate (Albuterol Sulfate (0.083%) 2.5 Mg/3 Ml Vial.Neb) 2.5 mg INHALE Q3H PRN PRN Reason: Wheezing Last Admin: 08/12/24 01:23 Dose: 2.5 mg Documented By: KEVON Albuterol/Ipratropium (Albuterol/Iprat 2.5/0.5mg 3 Ml Ampul.Neb) 3 ml INHALE Q6H [facility] Last Admin: 08/15/24 08:09 Dose: 3 ml Documented By: DONNA Ceftriaxone Sodium (Ceftriaxone Sodium 1 Gm Vial) 1 gm IVPUSH Q24H [facility] Last Admin: 08/15/24 08:53 Dose: 1 gm Documented By: SIMI Enoxaparin Sodium (Enoxaparin Sodium 40 Mg/0.4 Ml Syringe) 40 mg SUBCUT Q24H [facility] Last Admin: 08/14/24 10:25 Dose: 40 mg Documented By: ARDEN Folic Acid 2 mg/ Sodium (Chloride) 50.4 mls @ 100.4 mls/hr IV DAILY [facility] Last Infusion: 08/15/24 09:27 Dose: Infused Documented By: SIMI Thiamine HCl 300 mg/ Sodium (Chloride) 103 mls @ 204 mls/hr IV DAILY [facility] Last Infusion: 08/15/24 09:27 Dose: Infused Documented By: SIMI Magnesium Sulfate (Magnesium Sulfate/H2o) 2 gm in 50 mls @ 25 mls/hr IV ONCE ONE Stop: 08/15/24 11:02 Last Admin: 08/15/24 09:28 Dose: 25 mls/hr Documented By: SIMI Metoprolol Succinate (Metoprolol Succinate Er 50 Mg Tab.Er.24h) 50 mg PO DAILY JOHNATHAN; Protocol Last Admin: 08/15/24 08:54 Dose: 50 mg Documented By: SIMI Pharmacy Consult (Consult Rx Parenteral Nutrition Ordering) 1 each MISCELLANE DAILY PRN PRN Reason: Consult order Sodium Chloride (0.9 % Sodium Chloride Flush 3 Ml Syringe) 3 ml IVFLUSH QSHIFT [facility] Last Admin: 08/15/24 08:54 Dose: 3 ml Documented By: SIMI Labs 08/14/24 06:30 08/15/24 07:17 Labs: Laboratory Results - last 24 hr 08/14/24 08/14/24 08/15/24 04:25 06:30 07:17 Hold Purple Top SEE NOTE Anion Gap 16 Estim Creat Clear Calc 110.3 Estimated GFR > 60 Random Glucose 95 Calcium 8.3 L Phosphorus 3.8 Magnesium 1.3 L* Triglycerides 118 Blood Type A Positive Antibody Screen NEGATIVE Crossmatch See Detail Assessment and Plan (1) Delirium tremens: Status: Acute Plan 54F [facility] alcohol dependence presented on 08/06/2024 with mechanical fall and delirium tremens complicated by right shoulder fracture requiring ICU admission and Precedex complicated by hypotension and anemia, went on to develop sepsis due to pneumonia. Patient was weaned off Precedex and downgraded to medical floor on 08/14/2024 Alcohol dependence with acute metabolic encephalopathy and delirium tremens complicated by cardiogenic shock requiring ICU admission with Precedex and pressors Delirium tremens resolved Encephalopathy significantly improved Off pressors Sepsis and acute hypoxic respiratory failure secondary to pneumonia likely aspiration Sputum culture grew E coli Continue ceftriaxone Wean O2 as tolerated Acute on chronic anemia Likely inflammatory, transfusing 1 unit PRBC and monitor Mechanical fall complicated by right shoulder fracture Follow up Orthopedics DVT prophylaxis with Lovenox Full Code reason for continued hospitalization: Hypoxia Quality Stroke Does the patient have a stroke diagnosis?: No VTE Prior VTE?: No VTE Risk Level:: Medical - moderate - high VTE Device Contraindication: Treatment Not Indicated VTE Drug Contraindication: N/A - Med Ordered
--- NOTE | 2024-08-15 11:35 | MHC.CLN ---
F/U PT TRANSFERRED TO MEDICAL FLOOR PRIMER POWDER BLENDER WET ADVANCED DIET TO FULL LIQUIDS WITH NT LIQUIDS 50% X1 MEAL PO PT RECEIVING ENSURE TID TO INCREASE KCALS WITH MEAL TRAYS SUPP PROVIDES 1050KCALS, 60G PROTEIN MONITOR PO INTAKE CLOSELY
[2024-08-15 12:32] LABS: Adenovirus PCR Not Detected (Not Detect.); Bordetella parapertussis PCR Not Detected (Not Detect.); Bordetella pertussis PCR Not Detected (Not Detect.); Chlamydia pneumoniae PCR Not Detected (Not Detect.); Coronavirus 229E PCR Not Detected (Not Detect.); Coronavirus HKU1 PCR Not Detected (Not Detect.); Coronavirus NL63 PCR Not Detected (Not Detect.); Coronavirus OC43 PCR Not Detected (Not Detect.); Human metapneumovirus PCR Not Detected (Not Detect.); Influenza A PCR Not Detected (Not Detect.); Influenza B PCR Not Detected (Not Detect.); Mycoplasma pneumoniae PCR Not Detected (Not Detect.); Parainfluenza 1 PCR Not Detected (Not Detect.); Parainfluenza 2 PCR Not Detected (Not Detect.); Parainfluenza 3 PCR Not Detected (Not Detect.); Parainfluenza 4 PCR Not Detected (Not Detect.); RSV PCR Not Detected (Not Detect.); Rhino/Enterovirus PCR Not Detected (Not Detect.)
[2024-08-15] MEDS: Enoxaparin Sodium 40 MG/0.4 ML SYRINGE SUBCUT (12:41)
[2024-08-15 13:22] LABS: Influenza A H1 PCR Not Detected (Not Detect.); SARS-CoV-2 PCR Not Detected (Not Detect.)
[2024-08-15 13:23] LABS: Influenza A H1-2009 PCR Not Detected (Not Detect.); Influenza A H3 PCR Not Detected (Not Detect.)
[2024-08-15] MEDS: Acetaminophen Oral Liquid 650 MG/20.3 ML SOLUTION PO (13:57)
--- NOTE | 2024-08-15 14:04 | MHC.SLORD ---
Speech Language Pathology Order Status: CHANNELING MACHINE OPERATOR attempted to see pt for re-evaluation of swallow; respiratory had just been called into room. Per conversation w/ RT, not recommended to see pt on this date d/t respiratory status. CHANNELING MACHINE OPERATOR to f/u tomorrow.
[2024-08-15] MEDS: vancomycin HCL 1,500 MG in 0.9 % Sodium Chloride 500 ML 333.33 MG IV (14:27)
[2024-08-15] MEDS: Piperacillin Sodium/Tazobactam 4.5 GM in 0.9 % Sodium Chloride 100 ML IV ×2 (14:27→17:43)
[2024-08-15] MEDS: Acetaminophen 1,000 MG/100 ML PIGGYBACK 400 MG IV (17:42)
[2024-08-16] VITALS (16 sets, daily range): BP systolic 125–164; BP diastolic 64–98; PULSE 86–133; RESP 15–20; TEMP 36.3–38.6; O2SAT 89–94; BMI 20.3
[2024-08-16] MEDS: Piperacillin Sodium/Tazobactam 4.5 GM in 0.9 % Sodium Chloride 100 ML IV ×4 (02:08→18:03)
[2024-08-16] MEDS: 0.9 % Sodium Chloride Flush 3 ML SYRINGE IVFLUSH ×2 (02:09→09:41)
[2024-08-16] MEDS: vancomycin HCL 750 MG in 0.9 % Sodium Chloride 250 ML 265 MG IV (02:54)
[2024-08-16] MEDS: Albuterol/Iprat 2.5/0.5MG 3 ML AMPUL.NEB INHALE ×4 (04:50→18:02)
[2024-08-16 09:22] LABS: Hematocrit 28.3 % (42.0-52.0); Hemoglobin 9.7 g/dl (14.0-18.0); Mean Corpuscular HGB Conc 34.3 g/dl (31.0-36.0); Mean Corpuscular Hemoglobin 34.3 pg (27.0-33.0); NRBC Pct Auto 0.3 /100WBC (0.0-0.2); Platelet Count 365 X10*3/uL (160-400); Red Blood Count 2.83 X10*6/uL (4.60-5.80); White Blood Count 16.8 X10*3/uL (4.8-10.8)
[2024-08-16] MEDS: Enoxaparin Sodium 40 MG/0.4 ML SYRINGE SUBCUT (09:40)
[2024-08-16] MEDS: Folic Acid 2 MG in 0.9 % Sodium Chloride 50 ML 100.4 MG IV (09:40)
--- NOTE | 2024-08-16 09:48 | P.PNIM_ITS ---
Subjective Subjective Date of Service: 08/16/24 Interval History: a bit better Physical Exam 2 Vital Signs: Vital Signs: Last Vital Signs Temp 98.8 F 08/16/24 07:07 Pulse 110 H 08/16/24 07:45 Resp 20 08/16/24 07:45 BP 149/71 H 08/16/24 07:07 Pulse Ox 94 08/16/24 07:07 O2 Del Method High Flow Nasal C annula 08/16/24 07:07 O2 Flow Rate 40 08/16/24 07:07 FiO2 50 08/16/24 07:07 BMI result Body Mass Index 20.3 General: AO X 3, ill-appearing Resp: C crackles bilateral, no accessory muscles used CVS: S1,S2,RRR GI: soft, non tender, non distended Neuro: motor grossly intact, alert Psych: appropriate affect, appropriate insight Objective Data Active Medications Acetaminophen (Acetaminophen Oral Liquid 650 Mg/20.3 Ml Solution) 650 mg PO Q6H PRN PRN Reason: Fever >101 Last Admin: 08/15/24 13:57 Dose: 650 mg Documented By: SIMI Albuterol Sulfate (Albuterol Sulfate (0.083%) 2.5 Mg/3 Ml Vial.Neb) 2.5 mg INHALE Q3H PRN PRN Reason: Wheezing Last Admin: 08/12/24 01:23 Dose: 2.5 mg Documented By: KEVON Albuterol/Ipratropium (Albuterol/Iprat 2.5/0.5mg 3 Ml Ampul.Neb) 3 ml INHALE RQ6H [facility] Enoxaparin Sodium (Enoxaparin Sodium 40 Mg/0.4 Ml Syringe) 40 mg SUBCUT Q24H [facility] Last Admin: 08/15/24 12:41 Dose: 40 mg Documented By: SIMI Folic Acid 2 mg/ Sodium (Chloride) 50.4 mls @ 100.4 mls/hr IV DAILY [facility] Last Infusion: 08/15/24 09:27 Dose: Infused Documented By: SIMI Thiamine HCl 300 mg/ Sodium (Chloride) 103 mls @ 204 mls/hr IV DAILY [facility] Last Infusion: 08/15/24 09:27 Dose: Infused Documented By: SIMI Piperacillin Sod/Tazobactam (Sod 4.5 gm/ Sodium Chloride) 100 mls @ 200 mls/hr IV Q6H [facility] Last Infusion: 08/16/24 03:00 Dose: Infused Documented By: NELIA Vancomycin HCl 750 mg/ Sodium (Chloride) 265 mls @ 265 mls/hr IV Q12H [facility] Last Infusion: 08/16/24 04:05 Dose: Infused Documented By: NELIA Potassium Chloride (Potassium Chloride/H20) 10 meq in 100 mls @ 100 mls/hr IV Q1H [facility] Stop: 08/16/24 13:59 Metoprolol Succinate (Metoprolol Succinate Er 50 Mg Tab.Er.24h) 50 mg PO DAILY [facility]; Protocol Last Admin: 08/15/24 08:54 Dose: 50 mg Documented By: SIMI Omeprazole (Omeprazole 40 Mg Capsule.Dr) 40 mg PO BID@0630,1630 [facility] Last Admin: 08/16/24 03:55 Dose: Not Given Documented By: NELIA Non-Admin Reason: NPO Pharmacy Consult (Consult Rx Parenteral Nutrition Ordering) 1 each MISCELLANE DAILY PRN PRN Reason: Consult order Pharmacy Consult (Consult Rx Vancomycin Dosing) 1 each MISCELLANE DAILY PRN PRN Reason: Consult order Sodium Chloride (0.9 % Sodium Chloride Flush 3 Ml Syringe) 3 ml IVFLUSH QSHIFT [facility] Last Admin: 08/16/24 02:09 Dose: 3 ml Documented By: NELIA Labs 08/16/24 09:10 08/15/24 07:17 Labs: Laboratory Results - last 24 hr 08/14/24 08/14/24 08/14/24 04:25 06:30 20:30 MCV MCH MCHC RDW Plt Count MPV Absolute Nucleated RBC Nucleated RBC % (auto) Smear Path Review SEE NOTE Respiratory Panel Gtz See Note Adenovirus (Rapid PCR) Not Detected B.pert (TEM-PCR) Not Detected B.parapertussis DNA PCR Not Detected C. pneumoniae DNA (PCR) Not Detected Coronavirus OC43 (PCR) Not Detected Coronavirus HKU1 (PCR) Not Detected Coronavirus 229E (PCR) Not Detected Coronavirus NL63 (PCR) Not Detected Human Metapneumovir PCR Not Detected Influenza A (RT-PCR) Not Detected Influenza A (H1) PCR Not Detected Influ A (H1/09) PCR Not Detected Influenza A (H3) PCR Not Detected Influenza B (RT-PCR) Not Detected M. pneumoniae (PCR) Not Detected Parainfluenza 1 (PCR) Not Detected Parainfluenza 2 (PCR) Not Detected Parainfluenza 3 (PCR) Not Detected Parainfluenza 4 (PCR) Not Detected RSV (PCR) Not Detected Entero/Rhino (PCR) Not Detected SARS-CoV-2 RNA (RT-PCR) Not Detected Blood Type A Positive Antibody Screen NEGATIVE Crossmatch See Detail 08/16/24 09:10 MCV 100.0 H D MCH 34.3 H MCHC 34.3 RDW 19.0 H Plt Count 365 D MPV 11.0 Absolute Nucleated RBC 0.050 H Nucleated RBC % (auto) 0.3 H Smear Path Review Respiratory Panel Gtz Adenovirus (Rapid PCR) B.pert (TEM-PCR) B.parapertussis DNA PCR C. pneumoniae DNA (PCR) Coronavirus OC43 (PCR) Coronavirus HKU1 (PCR) Coronavirus 229E (PCR) Coronavirus NL63 (PCR) Human Metapneumovir PCR Influenza A (RT-PCR) Influenza A (H1) PCR Influ A (H1/09) PCR Influenza A (H3) PCR Influenza B (RT-PCR) M. pneumoniae (PCR) Parainfluenza 1 (PCR) Parainfluenza 2 (PCR) Parainfluenza 3 (PCR) Parainfluenza 4 (PCR) RSV (PCR) Entero/Rhino (PCR) SARS-CoV-2 RNA (RT-PCR) Blood Type Antibody Screen Crossmatch Microbiology Microbiology Results: Microbiology 08/10/24 21:40 Blood Culture - Final Blood - Venous No growth after 5 days. 08/10/24 21:40 Blood Culture - Final Blood - Venous No growth after 5 days. Assessment and Plan (1) Delirium tremens: Status: Acute Plan 54F [facility] alcohol dependence presented on 08/06/2024 with mechanical fall and delirium tremens complicated by right shoulder fracture requiring ICU admission and Precedex complicated by hypotension and anemia, went on to develop sepsis due to pneumonia. Patient was weaned off Precedex and downgraded to medical floor on 08/14/2024 Alcohol dependence with acute metabolic encephalopathy and delirium tremens complicated by cardiogenic shock requiring ICU admission with Precedex and pressors Delirium tremens resolved Encephalopathy significantly improved Off pressors Sepsis and acute hypoxic respiratory failure secondary to pneumonia likely aspiration Sputum culture grew E coli, but continues to be febrile ceftriaxone broadened to vanc/zosyn, follow up repeat blood cultures Wean O2 as tolerated - still needing high flow currently npo, follow up RECORDS OFFICER Acute on chronic anemia Likely inflammatory, transfused 1 unit PRBC 08/15/24 hgb improved acute hypokalemia and hpyomagnesemia replace and monitor acute hypernatremia d5w, monitor Mechanical fall complicated by right shoulder fracture Follow up Orthopedics once resp status better - ron RUE, NWB RUE, eventual OR reduction when stable DVT prophylaxis with Lovenox Full Code reason for continued hospitalization: Hypoxia Quality Stroke Does the patient have a stroke diagnosis?: No VTE Prior VTE?: No VTE Risk Level:: Medical - moderate - high VTE Device Contraindication: Treatment Not Indicated VTE Drug Contraindication: N/A - Med Ordered
[2024-08-16 09:49] LABS: Anion Gap 14 (12-20); Blood Urea Nitrogen 18 mg/dL (9-16); Calcium 8.6 mg/dL (8.4-10.2); Carbon Dioxide 22 mmol/L (22-29); Chloride 119 mmol/L (96-108); Creatinine Clr Calc Pharmacy 101.6; Estimated Glomerular Filt Rate > 60; Glucose Random 102 mg/dL (60-115); Magnesium 1.5 mg/dL (1.6-2.6); Phosphorus 3.1 mg/dL (2.7-4.5); Potassium 2.7 mmol/L (3.3-5.1); Sodium 152 mmol/L (135-145)
[2024-08-16] MEDS: Magnesium Sulfate/H2O 2 GM/50 ML PIGGYBACK IV (10:31)
[2024-08-16] MEDS: Dextrose 5 % 1,000 ML 100 ML IVCONT (10:31)
--- NOTE | 2024-08-16 11:18 | MHC.SL.SWA ---
Speech Pathologist Impression: Significant dysphagia in setting of CIWA/respiratory weakness Risk of Aspiration Due to: History of Pneumonia Reduced Cognition Dysphasia Diet Status: Liquid Consistency and Strategies for Safe Swallow: Liquid Intake Recommendation: NPO Liquid Intake Strategies: Liquids by Teaspoon Only Solid Food Consistency: Dietary Recommendations: NPO Additional Modifications to Solid Foods: Oral Medication Intake: NPO Please contact the pharmacy regarding appropriate crushable or liquid drug formulations that are available whenever modified delivery is recommended. Compensatory Strategies and Precautions to be Taken for Safe Swallow: Sitting Upright (90 deg) Liquids from Spoon Small Bites and Sips Supervision While Eating and Drinking for Safe Swallow: PO with LIFESTYLE DIRECTOR Foods to Avoid: Swallowing Recommended Treatments: Compens. Strategy Educat. Recommendation for Speech: Inpatient Speech Therapy Pt seen for repeat bedside swallow. Pt NPO d/t change in respiratory status, coughing on all PO. RN consulted. Pt has become increasingly dysarthric. Pt remains confused, able to follow few simple commands. Pt on [place] O2. Pt unable to tolerate trials of water as immediate cough occurred upon swallow. Oral swabs administered, removing dried secretions from surface of pt lips and interoral space (cheeks, surface of tongue). Recc NPO strict with oral care. LIFESTYLE DIRECTOR to reassess when appropriate. Comment: Frequency/Duration: Date Range for Service Req: M-F Daily Timeline to reassess: High School Librarian Clinican/Clinical Fellow: No Supervisory Statement: I have reviewed and agree with the student/clinical fellow's documentation: N/A Speech Language Pathologist: Selina Hernandez M.S., CCC-LIFESTYLE DIRECTOR
[2024-08-16] MEDS: Potassium Chloride/H20 10 MEQ/100 ML PIGGYBACK 100 MEQ IV ×4 (13:20→18:16)
[2024-08-16 13:42] LABS: Vancomycin Random 10.5 mcg/mL (15-20)
--- NOTE | 2024-08-16 14:45 | MHC.CM.PN ---
Per rounds, pt. is not medically cleared for DC, he is still requiring high flow supplemental O2. CM to follow for DC needs.
[2024-08-16] MEDS: vancomycin HCL 1,250 MG in 0.9 % Sodium Chloride 250 ML 166.67 MG IV (16:57)
[2024-08-17] VITALS (15 sets, daily range): BP systolic 117–154; BP diastolic 64–79; PULSE 90–125; RESP 16–30; TEMP 36.5–39.4; O2SAT 93–96; BMI 20.3
[2024-08-17] MEDS: Albuterol/Iprat 2.5/0.5MG 3 ML AMPUL.NEB INHALE ×4 (00:36→23:56)
[2024-08-17] MEDS: Piperacillin Sodium/Tazobactam 4.5 GM in 0.9 % Sodium Chloride 100 ML IV ×4 (01:25→22:30)
[2024-08-17] MEDS: vancomycin HCL 1,250 MG in 0.9 % Sodium Chloride 250 ML 166.67 MG IV ×2 (02:50→17:06)
[2024-08-17] MEDS: Dextrose 5 % 1,000 ML 100 ML IVCONT (03:46)
[2024-08-17 06:42] LABS: OBS Int Ctl Valid YES; OBS1 NEGATIVE (NEGATIVE)
[2024-08-17 07:53] LABS: Hematocrit 25.1 % (42.0-52.0); Hemoglobin 8.7 g/dl (14.0-18.0); Mean Corpuscular HGB Conc 34.7 g/dl (31.0-36.0); Mean Corpuscular Hemoglobin 34.9 pg (27.0-33.0); Mean Corpuscular Volume 100.8 fL (80.0-98.0); Mean Platelet Volume 11.3 fL (9.4-12.4); NRBC Pct Auto 0.3 /100WBC (0.0-0.2); Platelet Count 345 X10*3/uL (160-400); Red Blood Count 2.49 X10*6/uL (4.60-5.80); Red Cell Distribution Width 18.6 % (11.0-16.0); White Blood Count 16.4 X10*3/uL (4.8-10.8)
[2024-08-17 08:30] LABS: Anion Gap 12 (12-20); Blood Urea Nitrogen 15 mg/dL (9-16); Calcium 8.3 mg/dL (8.4-10.2); Carbon Dioxide 22 mmol/L (22-29); Chloride 119 mmol/L (96-108); Creatinine Clr Calc Pharmacy 100.2; Estimated Glomerular Filt Rate > 60; Glucose Random 113 mg/dL (60-115); Magnesium 1.5 mg/dL (1.6-2.6); Phosphorus 2.7 mg/dL (2.7-4.5); Potassium 2.6 mmol/L (3.3-5.1); Sodium 150 mmol/L (135-145)
[2024-08-17] MEDS: Folic Acid 2 MG in 0.9 % Sodium Chloride 50 ML 100.4 MG IV (09:00)
[2024-08-17] MEDS: 0.9 % Sodium Chloride Flush 3 ML SYRINGE IVFLUSH ×3 (09:01→22:00)
[2024-08-17] MEDS: Enoxaparin Sodium 40 MG/0.4 ML SYRINGE SUBCUT (11:06)
[2024-08-17] MEDS: methylPREDNISolone Sod Succ 40 MG/ML VIAL IVPUSH ×2 (11:06→22:00)
[2024-08-17] MEDS: Potassium Chloride/H20 10 MEQ/100 ML PIGGYBACK 100 MEQ IV ×6 (11:06→21:42)
--- NOTE | 2024-08-17 11:33 | MHC.SL.SWA ---
Speech Pathologist Impression: Risk of Aspiration Due to: History of Pneumonia Reduced Cognition Dysphasia Diet Status: Strict NPO Liquid Consistency and Strategies for Safe Swallow: Liquid Intake Recommendation: NPO Liquid Intake Strategies: Solid Food Consistency: Dietary Recommendations: NPO Additional Modifications to Solid Foods: Oral Medication Intake: NPO Please contact the pharmacy regarding appropriate crushable or liquid drug formulations that are available whenever modified delivery is recommended. Compensatory Strategies and Precautions to be Taken for Safe Swallow: Supervision While Eating and Drinking for Safe Swallow: Foods to Avoid: Swallowing Recommended Treatments: Compens. Strategy Educat. Recommendation for Speech: Inpatient Speech Therapy Comment: Patient seen this morning for re-assessment. Patient had been recommended NPO yesterday. Per chart, Patient appeared to have diet (clear liquid) restarted, RN was unclear why this had occurred, was advised not to attempt until DATA GOVERNANCE CONSULTANT able to re-asses patient to determine appropriateness. Patient was initially asleep, but woke easily, tolerated bed adjustment to 90 degrees, had high flow oxygen on. Mouth oral area appeared dry. RN had decided to attempt giving large pill required by grinding up pill and putting in water, DATA GOVERNANCE CONSULTANT requested that this be trialed and when administered by tsp amount patient produced an immediate wet cough. This was also seen when given sip of plain water by tsp. Patient given small bite of pudding/puree by tsp, also produced an immediate, repetitive cough. Trials and administration of medication were discontinued due to clinical signs of aspiration seen on liquids and puree. Recommend strict NPO. Patient will likely need alternative nutrition source and MBSS to determine swallow function/toleration of any food/liquid consistencies. However MBSS should be done when patient is off HIGH FLOW. MD/RD notified of all recommendations by secure text, RN in person. Frequency/Duration: Date Range for Service Req: M-F Daily Timeline to reassess: Business Improvement Manager Clinican/Clinical Fellow: No Supervisory Statement: I have reviewed and agree with the student/clinical fellow's documentation: N/A Speech Language Pathologist: Nilam Ortiz M.A., CCC-DATA GOVERNANCE CONSULTANT
--- NOTE | 2024-08-17 11:50 | MHC.CLN ---
RE; CONSULT QUALITY ASSISTANT RECOMMENDING NPO DISCUSSED WITH MD-PLAN TO START PPN REVIEWED LABS DISCUSSED WITH PHARMACY RECOMMEND PPN AT 55ML/HR TO PROVIDE 673KCALS, 132G DEXTROSE, 56G PROTEIN REPLETE LYTES NEEDED SEE FULL CLINICAL NUTRITION ASSESSMENT
[2024-08-17] MEDS: KCl 20 mEq in 5 % Dextrose 20 MEQ/1,000 ML IV.SOLN 125 MEQ IVCONT (12:28)
--- NOTE | 2024-08-17 12:48 | P.PNIM_ITS ---
Subjective Subjective Date of Service: 08/17/24 Interval History: seen and evaluated looks frail and weak on High flow O2 failed DIRECTOR COMPLIANCE spiking fever Review of Systems Review of Systems: Yes all other systems are reviewed and are negative Physical Exam 2 Vital Signs: Vital Signs: Last Vital Signs Temp 103.0 F H 08/17/24 12:00 Pulse 125 H 08/17/24 12:00 Resp 24 H 08/17/24 12:00 BP 133/73 08/17/24 12:00 Pulse Ox 96 08/17/24 12:00 O2 Del Method High Flow Nasal C annula 08/17/24 12:00 O2 Flow Rate 40 08/17/24 12:00 FiO2 50 08/17/24 12:00 BMI result Body Mass Index 20.3 Const: Other: Constitutional : Awake, interactive, in moderate respiratory distress Neck : Normal inspection, Supple Cardiovascular : RRR, no JVP, no lower extremity edema Respiratory : good bilateral air entry, fine crackles, wheezes or rhonchi, on High flow O2 Gastrointestinal: soft, lax, Normal bowel sounds, Non tender Skin : Warm, Dry Neurological : Alert & oriented x3, No focal deficit Objective Data Active Medications Acetaminophen (Acetaminophen Oral Liquid 650 Mg/20.3 Ml Solution) 650 mg PO Q6H PRN PRN Reason: Fever >101 Last Admin: 08/15/24 13:57 Dose: 650 mg Documented By: SIMI Albuterol Sulfate (Albuterol Sulfate (0.083%) 2.5 Mg/3 Ml Vial.Neb) 2.5 mg INHALE Q3H PRN PRN Reason: Wheezing Last Admin: 08/12/24 01:23 Dose: 2.5 mg Documented By: KEVON Albuterol/Ipratropium (Albuterol/Iprat 2.5/0.5mg 3 Ml Ampul.Neb) 3 ml INHALE RQ6H [facility] Last Admin: 08/17/24 11:36 Dose: Not Given Documented By: DONNA Non-Admin Reason: Elevated Heart Rate Enoxaparin Sodium (Enoxaparin Sodium 40 Mg/0.4 Ml Syringe) 40 mg SUBCUT Q24H [facility] Last Admin: 08/17/24 11:06 Dose: 40 mg Documented By: JOLYNN Folic Acid 2 mg/ Sodium (Chloride) 50.4 mls @ 100.4 mls/hr IV DAILY [facility] Last Infusion: 08/17/24 09:58 Dose: Infused Documented By: JOLYNN Thiamine HCl 300 mg/ Sodium (Chloride) 103 mls @ 204 mls/hr IV DAILY [facility] Last Infusion: 08/17/24 10:01 Dose: Infused Documented By: JOLYNN Piperacillin Sod/Tazobactam (Sod 4.5 gm/ Sodium Chloride) 100 mls @ 200 mls/hr IV Q6H [facility] Last Infusion: 08/17/24 09:58 Dose: Infused Documented By: JOLYNN Vancomycin HCl 1,250 mg/ (Sodium Chloride) 250 mls @ 166.667 mls/hr IV Q12H [facility] Last Infusion: 08/17/24 05:03 Dose: Infused Documented By: PARRISH Potassium Chloride (Potassium Chloride/H20) 10 meq in 100 mls @ 100 mls/hr IV Q1H [facility] Stop: 08/17/24 14:59 Last Admin: 08/17/24 12:26 Dose: 100 mls/hr Documented By: JOLYNN Potassium Chloride/Dextrose (Kcl 20 Meq In 5 % Dextrose) 20 meq in 1,000 mls @ 125 mls/hr IVCONT .Q8H [facility] Last Admin: 08/17/24 12:28 Dose: 125 mls/hr Documented By: JOLYNN Nutrition (Parenteral) (Parenteral Nutrition) 1,320 mls @ 55 mls/hr IV .Q24H [facility]; Protocol Stop: 08/18/24 20:59 Acetaminophen (Ofirmev) 1,000 mg in 100 mls @ 400 mls/hr IV ONCE ONE Stop: 08/17/24 12:56 Ketorolac Tromethamine (Ketorolac Tromethamine 15 Mg/Ml Vial) 15 mg IVPUSH ONCE ONE Stop: 08/17/24 12:43 Ketorolac Tromethamine (Ketorolac Tromethamine 30 Mg/Ml Vial) 30 mg IVPUSH Q6H PRN PRN Reason: Pain, Moderate(4-6), Fever Methylprednisolone Sodium Succinate (Methylprednisolone Sod Succ 40 Mg/Ml Vial) 40 mg IVPUSH Q12H [facility] Last Admin: 08/17/24 11:06 Dose: 40 mg Documented By: JOLYNN Metoprolol Succinate (Metoprolol Succinate Er 50 Mg Tab.Er.24h) 50 mg PO DAILY [facility]; Protocol Last Admin: 08/17/24 09:46 Dose: Not Given Documented By: JOLYNN Non-Admin Reason: NPO Omeprazole (Omeprazole 40 Mg Capsule.Dr) 40 mg PO BID@0630,1630 [facility] Last Admin: 08/17/24 05:05 Dose: Not Given Documented By: PARRISH Non-Admin Reason: NPO Pharmacy Consult (Consult Rx Parenteral Nutrition Ordering) 1 each MISCELLANE DAILY PRN PRN Reason: Consult order Pharmacy Consult (Consult Rx Vancomycin Dosing) 1 each MISCELLANE DAILY PRN PRN Reason: Consult order Pharmacy Consult (Consult Rx Parenteral Nutrition Ordering) 1 each MISCELLANE DAILY PRN PRN Reason: Consult order Sodium Chloride (0.9 % Sodium Chloride Flush 3 Ml Syringe) 3 ml IVFLUSH QSHIFT [facility] Last Admin: 08/17/24 09:01 Dose: 3 ml Documented By: JOLYNN Labs 08/17/24 07:39 08/17/24 07:39 Labs: Laboratory Results - last 24 hr 08/16/24 08/17/24 08/17/24 12:55 06:20 07:39 MCV 100.8 H MCH 34.9 H MCHC 34.7 RDW 18.6 H Plt Count 345 MPV 11.3 Absolute Nucleated RBC 0.050 H Nucleated RBC % (auto) 0.3 H Anion Gap 12 Estim Creat Clear Calc 100.2 Estimated GFR > 60 Random Glucose 113 Calcium 8.3 L Phosphorus 2.7 Magnesium 1.5 L Stool Occult Blood NEGATIVE Random Vancomycin 10.5 L Microbiology Microbiology Results: Microbiology 08/15/24 14:22 Blood Culture - Preliminary Blood - Venous No growth after 24 hours. 08/15/24 14:13 Blood Culture - Preliminary Blood - Venous No growth after 24 hours. Assessment and Plan (1) Pulmonary aspiration: Status: Acute (2) Acute respiratory failure with hypoxia: Status: Acute (3) Delirium tremens: Status: Acute (4) Fracture, humerus, proximal: Status: Acute (5) Alcohol withdrawal seizure with delirium: Status: Acute Plan 54F [facility] alcohol dependence presented on 08/06/2024 with mechanical fall and delirium tremens complicated by right shoulder fracture requiring ICU admission and Precedex complicated by hypotension and anemia, went on to develop sepsis due to pneumonia. Patient was weaned off Precedex and downgraded to medical floor on 08/14/2024 Alcohol dependence with acute metabolic encephalopathy and delirium tremens complicated by cardiogenic shock requiring ICU admission with Precedex and pressors Delirium tremens resolved Encephalopathy significantly improved Off pressors recovery team to follow Sepsis and acute hypoxic respiratory failure secondary to pneumonia from aspiration spiking fever Sputum culture grew E coli, but continues to be febrile check pulm panel ceftriaxone broadened to vanc/zosyn, follow up repeat blood cultures Add Steroids IV Wean O2 as tolerated - still needing high flow DIRECTOR COMPLIANCE rec NPO and MBSS once off high flow start PPN Acute on chronic anemia Likely inflammatory, transfused 1 unit PRBC 08/15/24 hgb improved acute hypokalemia and hpyomagnesemia replace IV and PO and monitor acute hypernatremia d5w, monitor BMP Mechanical fall complicated by right shoulder fracture Follow up Orthopedics once resp status better - sling RUE, NWB RUE, eventual OR reduction when stable DVT prophylaxis with Lovenox Full Code reason for continued hospitalization: Hypoxia on highflow, failing swallowing eval. Quality Stroke Does the patient have a stroke diagnosis?: No VTE Prior VTE?: No VTE Risk Level:: Medical - moderate - high VTE Device Contraindication: Treatment Not Indicated VTE Drug Contraindication: N/A - Med Ordered
[2024-08-17 13:56] LABS: Vancomycin Random 14.5 mcg/mL (15-20)
--- NOTE | 2024-08-17 14:12 | HE.PHANOTE ---
RE: VANCO DOSING Trough came back as 14.5 mg/L and renal function is stable. Dose is kept at 1250 mg q12h, next trough is scheduled for 08/18/24 @1300.
[2024-08-17] MEDS: Ketorolac Tromethamine 15 MG/ML VIAL IVPUSH (14:22)
[2024-08-17] MEDS: Acetaminophen 1,000 MG/100 ML PIGGYBACK 400 MG IV (14:23)
[2024-08-17 14:43] LABS: Anion Gap 12 (12-20); Blood Urea Nitrogen 14 mg/dL (9-16); Calcium 8.5 mg/dL (8.4-10.2); Carbon Dioxide 22 mmol/L (22-29); Chloride 118 mmol/L (96-108); Estimated Glomerular Filt Rate > 60; Glucose Random 147 mg/dL (60-115); Potassium 3.1 mmol/L (3.3-5.1); Sodium 149 mmol/L (135-145)
--- NOTE | 2024-08-17 18:30 | PC.NURSE ---
This Rn attempted to place a Power Midline at the left upper arm without success. RN was able to obtain access with + blood return but unable to wire. Primary RN Sharita notified
[2024-08-17] MEDS: Parenteral Nutrition 1,320 ML 55 ML IV (22:01)
[2024-08-18] VITALS (9 sets, daily range): BP systolic 129–159; BP diastolic 71–87; PULSE 93–108; RESP 16–22; TEMP 36.8–37.6; O2SAT 92–98; BMI 20.8
[2024-08-18] MEDS: KCl 20 mEq in 5 % Dextrose 20 MEQ/1,000 ML IV.SOLN 125 MEQ IVCONT ×2 (01:08→18:46)
[2024-08-18] MEDS: Piperacillin Sodium/Tazobactam 4.5 GM in 0.9 % Sodium Chloride 100 ML IV ×4 (02:09→20:05)
[2024-08-18] MEDS: vancomycin HCL 1,250 MG in 0.9 % Sodium Chloride 250 ML 166.67 MG IV (04:16)
[2024-08-18] MEDS: Albuterol/Iprat 2.5/0.5MG 3 ML AMPUL.NEB INHALE ×2 (05:44→19:48)
[2024-08-18 07:07] LABS: MANUAL DIFF FLAG NO
[2024-08-18 07:14] LABS: Basophils Percent Auto 0.3 % (0-2); Eosinophils Percent Auto 0.2 % (0-4); Hematocrit 24.6 % (42.0-52.0); Hemoglobin 8.2 g/dl (14.0-18.0); Imm Gran Abs Auto 0.17 X10*3/uL (0.00-0.03); Imm Gran Pct Auto 1.2 % (0.0-0.4); Lymphocytes Absolute Auto 1.2 X10*3/uL (1.2-4.9); Lymphocytes Percent Auto 8.3 % (20-40); Mean Corpuscular HGB Conc 33.3 g/dl (31.0-36.0); Mean Corpuscular Hemoglobin 34.2 pg (27.0-33.0); Mean Corpuscular Volume 102.5 fL (80.0-98.0); Mean Platelet Volume 11.5 fL (9.4-12.4); Monocytes Absolute Auto 0.4 X10*3/uL (0.1-1.2); Monocytes Percent Auto 2.5 % (2-11); Neutrophils Absolute Auto 12.7 x10*3/uL (2.0-8.3); Neutrophils Percent Auto 87.5 % (45-73); Platelet Count 354 X10*3/uL (160-400); Red Cell Distribution Width 17.7 % (11.0-16.0); White Blood Count 14.5 X10*3/uL (4.8-10.8)
[2024-08-18] MEDS: Folic Acid 2 MG in 0.9 % Sodium Chloride 50 ML 100.4 MG IV (07:48)
[2024-08-18] MEDS: 0.9 % Sodium Chloride Flush 3 ML SYRINGE IVFLUSH ×3 (07:49→22:13)
[2024-08-18 08:06] LABS: Alanine Aminotransferase 15 U/L (0-40); Albumin Level 2.6 g/dL (3.5-5.0); Alkaline Phosphatase 158 U/L (39-117); Anion Gap 11 (12-20); Aspartate Amino Transferase 58 U/L (5-37); Bilirubin Direct 0.6 mg/dL (0.0-0.5); Bilirubin Total 1.2 mg/dL (0.0-1.0); Blood Urea Nitrogen 15 mg/dL (9-16); Calcium 8.2 mg/dL (8.4-10.2); Carbon Dioxide 21 mmol/L (22-29); Chloride 118 mmol/L (96-108); Creatinine Clr Calc Pharmacy 111.6; Estimated Glomerular Filt Rate > 60; Glucose Random 161 mg/dL (60-115); Magnesium 1.5 mg/dL (1.6-2.6); Phosphorus 2.7 mg/dL (2.7-4.5); Potassium 2.7 mmol/L (3.3-5.1); Sodium 147 mmol/L (135-145); Total Protein 5.8 g/dL (6.5-8.0)
[2024-08-18 08:48] LABS: Adenovirus PCR Not Detected (Not Detect.); Bordetella parapertussis PCR Not Detected (Not Detect.); Bordetella pertussis PCR Not Detected (Not Detect.); Chlamydia pneumoniae PCR Not Detected (Not Detect.); Coronavirus 229E PCR Not Detected (Not Detect.); Coronavirus HKU1 PCR Not Detected (Not Detect.); Coronavirus NL63 PCR Not Detected (Not Detect.); Coronavirus OC43 PCR Not Detected (Not Detect.); Human metapneumovirus PCR Not Detected (Not Detect.); Influenza A PCR Not Detected (Not Detect.); Influenza B PCR Not Detected (Not Detect.); Mycoplasma pneumoniae PCR Not Detected (Not Detect.); Parainfluenza 1 PCR Not Detected (Not Detect.); Parainfluenza 2 PCR Not Detected (Not Detect.); Parainfluenza 3 PCR Not Detected (Not Detect.); Parainfluenza 4 PCR Not Detected (Not Detect.); RSV PCR Not Detected (Not Detect.); Rhino/Enterovirus PCR Not Detected (Not Detect.)
[2024-08-18 08:50] LABS: CDiff Gene PCR POSITIVE (Negative)
[2024-08-18 09:06] LABS: Influenza A H1 PCR Not Detected (Not Detect.); Influenza A H1-2009 PCR Not Detected (Not Detect.); Influenza A H3 PCR Not Detected (Not Detect.); SARS-CoV-2 PCR Not Detected (Not Detect.)
[2024-08-18 09:21] LABS: CDIFF Internal ctrl Dots and bkg OK (V); CDiff Toxin Negative (Negative)
[2024-08-18] MEDS: Potassium Chloride/H20 10 MEQ/100 ML PIGGYBACK 100 MEQ IV ×4 (09:38→17:14)
[2024-08-18] MEDS: Nicotine 14 MG PATCH.TD24 TRANSDERMA (09:38)
--- NOTE | 2024-08-18 09:50 | HO.PM.IMPN ---
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 Review of Systems Review of Systems: Yes all other systems are reviewed and are negative Physical Exam Vital Signs: Vital Signs: Last Vital Signs Temp 99.1 F 08/18/24 07:46 Pulse 93 08/18/24 07:46 Resp 20 08/18/24 07:46 BP 159/71 H 08/18/24 07:46 Pulse Ox 92 08/18/24 07:46 O2 Del Method Room Air 08/18/24 07:46 O2 Flow Rate 35 08/18/24 03:37 FiO2 35 08/18/24 03:37 BMI result Body Mass Index 20.8 Const: Other: Constitutional : Awake, interactive, in moderate respiratory distress Neck : Normal inspection, Supple Cardiovascular : RRR, no JVP, no lower extremity edema Respiratory : good bilateral air entry, fine crackles, wheezes or rhonchi, on O2 Gastrointestinal: soft, lax, Normal bowel sounds, Non tender Skin : Warm, Dry Neurological : Alert & oriented x3, No focal deficit Objective Data Active Medications Acetaminophen (Acetaminophen Oral Liquid 650 Mg/20.3 Ml Solution) 650 mg PO Q6H PRN PRN Reason: Fever >101 Last Admin: 08/15/24 13:57 Dose: 650 mg Documented By: SIMI Albuterol/Ipratropium (Albuterol/Iprat 2.5/0.5mg 3 Ml Ampul.Neb) 3 ml INHALE RQ6H [facility] Last Admin: 08/18/24 05:44 Dose: 3 ml Documented By: RODNEY Enoxaparin Sodium (Enoxaparin Sodium 40 Mg/0.4 Ml Syringe) 40 mg SUBCUT Q24H [facility] Last Admin: 08/17/24 11:06 Dose: 40 mg Documented By: JOLYNN Folic Acid 2 mg/ Sodium (Chloride) 50.4 mls @ 100.4 mls/hr IV DAILY [facility] Last Infusion: 08/18/24 08:37 Dose: Infused Documented By: JOLYNN Thiamine HCl 300 mg/ Sodium (Chloride) 103 mls @ 204 mls/hr IV DAILY [facility] Last Infusion: 08/18/24 08:37 Dose: Infused Documented By: JOLYNN Piperacillin Sod/Tazobactam (Sod 4.5 gm/ Sodium Chloride) 100 mls @ 200 mls/hr IV Q6H [facility] Last Infusion: 08/18/24 06:19 Dose: Infused Documented By: VINICIUS Vancomycin HCl 1,250 mg/ (Sodium Chloride) 250 mls @ 166.667 mls/hr IV Q12H [facility] Last Infusion: 08/18/24 05:55 Dose: Infused Documented By: VINICIUS Potassium Chloride/Dextrose (Kcl 20 Meq In 5 % Dextrose) 20 meq in 1,000 mls @ 125 mls/hr IVCONT .Q8H [facility] Last Infusion: 08/18/24 09:33 Dose: Infused Documented By: JOLYNN Nutrition (Parenteral) (Parenteral Nutrition) 1,320 mls @ 55 mls/hr IV .Q24H [facility]; Protocol Stop: 08/18/24 20:59 Last Admin: 08/17/24 22:01 Dose: 55 mls/hr Documented By: VINICIUS Potassium Chloride (Potassium Chloride/H20) 10 meq in 100 mls @ 100 mls/hr IV Q1H [facility] Stop: 08/18/24 11:59 Last Admin: 08/18/24 09:38 Dose: 100 mls/hr Documented By: JOLYNN Ketorolac Tromethamine (Ketorolac Tromethamine 30 Mg/Ml Vial) 30 mg IVPUSH Q6H PRN PRN Reason: Pain, Moderate(4-6), Fever Methylprednisolone Sodium Succinate (Methylprednisolone Sod Succ 40 Mg/Ml Vial) 40 mg IVPUSH Q12H [facility] Last Admin: 08/17/24 22:00 Dose: 40 mg Documented By: VINICIUS Metoprolol Succinate (Metoprolol Succinate Er 50 Mg Tab.Er.24h) 50 mg PO DAILY [facility]; Protocol Last Admin: 08/18/24 07:49 Dose: Not Given Documented By: JOLYNN Non-Admin Reason: NPO Nicotine (Nicotine 14 Mg Patch.Td24) 14 mg TRANSDERMA DAILY [facility] Last Admin: 08/18/24 09:38 Dose: 14 mg Documented By: JOLYNN Omeprazole (Omeprazole 40 Mg Capsule.Dr) 40 mg PO BID@0630,1630 [facility] Last Admin: 08/18/24 05:44 Dose: Not Given Documented By: VINICIUS Non-Admin Reason: NPO Pharmacy Consult (Consult Rx Parenteral Nutrition Ordering) 1 each MISCELLANE DAILY PRN PRN Reason: Consult order Pharmacy Consult (Consult Rx Vancomycin Dosing) 1 each MISCELLANE DAILY PRN PRN Reason: Consult order Pharmacy Consult (Consult Rx Parenteral Nutrition Ordering) 1 each MISCELLANE DAILY PRN PRN Reason: Consult order Sodium Chloride (0.9 % Sodium Chloride Flush 3 Ml Syringe) 3 ml IVFLUSH QSHIFT [facility] Last Admin: 08/18/24 07:49 Dose: 3 ml Documented By: JOLYNN Labs 08/18/24 07:00 08/18/24 07:00 Labs: Laboratory Results - last 24 hr 08/17/24 08/17/24 08/18/24 13:17 14:18 01:15 MCV MCH MCHC RDW Plt Count MPV Immature Gran % (Auto) Neut % (Auto) Lymph % (Auto) Terry % (Auto) Eos % (Auto) Baso % (Auto) Lymph # (Auto) Terry # (Auto) Eos # (Auto) Baso # (Auto) Abs Immat Gran (auto) Absolute Neuts (auto) Absolute Nucleated RBC Nucleated RBC % (auto) Anion Gap 12 Estim Creat Clear Calc 103.0 Estimated GFR > 60 Random Glucose 147 H Calcium 8.5 Phosphorus Magnesium Total Bilirubin Direct Bilirubin AST ALT Alkaline Phosphatase Total Protein Albumin Random Vancomycin 14.5 L Respiratory Panel Gtz See Note Adenovirus (Rapid PCR) Not Detected B.pert (TEM-PCR) Not Detected B.parapertussis DNA PCR Not Detected C. pneumoniae DNA (PCR) Not Detected C. difficile Tox B Gene C. difficile Toxin A&B C. difficile Interpret Coronavirus OC43 (PCR) Not Detected Coronavirus HKU1 (PCR) Not Detected Coronavirus 229E (PCR) Not Detected Coronavirus NL63 (PCR) Not Detected Human Metapneumovir PCR Not Detected Influenza A (RT-PCR) Not Detected Influenza A (H1) PCR Not Detected Influ A (H1/09) PCR Not Detected Influenza A (H3) PCR Not Detected Influenza B (RT-PCR) Not Detected M. pneumoniae (PCR) Not Detected Parainfluenza 1 (PCR) Not Detected Parainfluenza 2 (PCR) Not Detected Parainfluenza 3 (PCR) Not Detected Parainfluenza 4 (PCR) Not Detected RSV (PCR) Not Detected Entero/Rhino (PCR) Not Detected SARS-CoV-2 RNA (RT-PCR) Not Detected 08/18/24 08/18/24 06:43 07:00 MCV 102.5 H MCH 34.2 H MCHC 33.3 RDW 17.7 H Plt Count 354 MPV 11.5 Immature Gran % (Auto) 1.2 H Neut % (Auto) 87.5 H Lymph % (Auto) 8.3 L Terry % (Auto) 2.5 Eos % (Auto) 0.2 Baso % (Auto) 0.3 Lymph # (Auto) 1.2 Terry # (Auto) 0.4 Eos # (Auto) 0.0 Baso # (Auto) 0.0 Abs Immat Gran (auto) 0.17 H Absolute Neuts (auto) 12.7 H Absolute Nucleated RBC 0.000 Nucleated RBC % (auto) 0.0 Anion Gap 11 L Estim Creat Clear Calc 111.6 Estimated GFR > 60 Random Glucose 161 H Calcium 8.2 L Phosphorus 2.7 Magnesium 1.5 L Total Bilirubin 1.2 H Direct Bilirubin 0.6 H AST 58 H ALT 15 Alkaline Phosphatase 158 H Total Protein 5.8 L Albumin 2.6 L Random Vancomycin Respiratory Panel Gtz Adenovirus (Rapid PCR) B.pert (TEM-PCR) B.parapertussis DNA PCR C. pneumoniae DNA (PCR) C. difficile Tox B Gene POSITIVE A* C. difficile Toxin A&B Negative C. difficile Interpret SEE NOTE Coronavirus OC43 (PCR) Coronavirus HKU1 (PCR) Coronavirus 229E (PCR) Coronavirus NL63 (PCR) Human Metapneumovir PCR Influenza A (RT-PCR) Influenza A (H1) PCR Influ A (H1/09) PCR Influenza A (H3) PCR Influenza B (RT-PCR) M. pneumoniae (PCR) Parainfluenza 1 (PCR) Parainfluenza 2 (PCR) Parainfluenza 3 (PCR) Parainfluenza 4 (PCR) RSV (PCR) Entero/Rhino (PCR) SARS-CoV-2 RNA (RT-PCR) Microbiology Microbiology Results: Microbiology 08/15/24 14:13 Blood Culture - Preliminary Blood - Venous No growth after 48 hours. 08/15/24 14:22 Blood Culture - Preliminary Blood - Venous No growth after 48 hours. Assessment and Plan (1) Pulmonary aspiration: Status: Acute (2) Acute respiratory failure with hypoxia: Status: Acute (3) Delirium tremens: Status: Acute (4) Shoulder fracture, right: Status: Acute (5) C. difficile diarrhea: Status: Acute Plan 54F PMH alcohol dependence presented on 08/06/2024 with mechanical fall and delirium tremens complicated by right shoulder fracture requiring ICU admission and Precedex complicated by hypotension and anemia, went on to develop sepsis due to pneumonia. Patient was weaned off Precedex and downgraded to medical floor on 08/14/2024 Alcohol dependence with acute metabolic encephalopathy and delirium tremens complicated by cardiogenic shock requiring ICU admission with Precedex and pressors Delirium tremens resolved Encephalopathy significantly improved Off pressors recovery team to follow Sepsis and acute hypoxic respiratory failure secondary to pneumonia from aspiration no fever overnight Sputum culture grew E coli, but continues to be febrile negative pulm panel +ve C.Diff testing ceftriaxone broadened to vanc/zosyn, follow up repeat blood cultures continue Steroids IV Wean O2 as tolerated - still needing high flow 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 Quality Stroke Does the patient have a stroke diagnosis?: No VTE Prior VTE?: No VTE Risk Level:: Medical - moderate - high VTE Device Contraindication: Treatment Not Indicated VTE Drug Contraindication: N/A - Med Ordered
--- NOTE | 2024-08-18 10:39 | MHC.CLN ---
F/U REVIEWED LABS; TRIGS 118 DISCUSSED WITH PHARMACY 08/18/24 RECOMMEND INCREASING PPN TO 75ML/HR TO PROVIDE 918KCALS, 180G DEXTROSE, 77G PROTEIN REPLETE LYTES NEEDED 08/19/24 RECOMMEND INCREASING PPN TO MAX GOAL RATE 95ML/HR WITH 80G LIPIDS TO PROVIDE 1963 TOTAL KCALS (25KCALS/KG), 228G DEXTROSE, 97G PROTEIN (1.2G/KG) REPLETE LYTES NEEDED 08/20/24 CONTINUE AT MAX GOAL RATE NOTED ABOVE RD CAN BE REACHED VIA TIGER CONNECT DURING OFF HOURS IF NEEDED
[2024-08-18] MEDS: methylPREDNISolone Sod Succ 40 MG/ML VIAL IVPUSH ×2 (11:04→22:13)
[2024-08-18] MEDS: Enoxaparin Sodium 40 MG/0.4 ML SYRINGE SUBCUT (11:04)
--- NOTE | 2024-08-18 12:54 | MHC.SLORD ---
Speech Language Pathology Order Status: CRYPTOGRAPHIC TECHNICIAN attempted to see patient x2 this morning, however, staff was attempting to place central line. CRYPTOGRAPHIC TECHNICIAN to return later this date to re-attempt swallow eval.
--- NOTE | 2024-08-18 13:33 | MHC.CM.PN ---
Per rounds, the pt is not ready to DC, he is scheduled to have surgery on his shoulder on Wednesday. CM to follow for DC needs.
[2024-08-18 14:00] LABS: Vancomycin Random 11.6 mcg/mL (15-20)
[2024-08-18] MEDS: vancomycin HCL 1,500 MG in 0.9 % Sodium Chloride 500 ML 333.33 MG IV (14:33)
--- NOTE | 2024-08-18 14:51 | HO.MIDLINE_ITS ---
Midline Insertion MIDLINE INSERTION Diagnosis: shoulder fracture, multiple medications Indication: IV access Pertinent Labs: Reviewed Technique: Using sterile technique including cap and mask, glove and drape, the left arm was prepped and draped in the usual sterile fashion of full barrier technique with CHG. Using ultrasound guidance, the left brachial vein access was obtained in a single attempt by this RN. a 20 guage 8 cm NON-PASV Midline was positioned. The procedure was performed in 476. Ultrasound was used to document vein patency and for needle entry. A formal ultrasound picture was recorded. Vascular [employer] Floater has released the line for use and it is currently dressed with a StatLock, Tegaderm, and CHG disc. Verification has been performed for blood return and line patency. Arm Circumference: 30 cm Equipment: iContact PowerMidline Catheter Catheter Type: 20 guage 8 cm NON-PASV Midline Lot #: [id number]
[2024-08-18] MEDS: Heparin Sodium,Porcine Flush 50 UNITS, 0.9 % Sodium Chloride Flush 5 ML IVFLUSH ×2 (16:06→20:35)
--- NOTE | 2024-08-18 18:27 | MHC.SL.SWA ---
Speech Pathologist Impression: Risk of Aspiration Risk of Aspiration Due to: History of Pneumonia Reduced Cognition Dysphasia Diet Status: START on NDD2/THIN w/ direct supervision and aspiration precautions Liquid Consistency and Strategies for Safe Swallow: Liquid Intake Recommendation: Thin Liquid Intake Strategies: Small Sips No Straws Solid Food Consistency: Dietary Recommendations: Grnd/Mech Altered (NDD2) Additional Modifications to Solid Foods: Recommend START on GROUND/MECH ALTERED (NDD2) diet and THIN liquids, pills CRUSHED in PUREE. Patient attempts to feed himself, but has a tendency to drop items and spill on himself. Patient will need direct supervision, monitor tolerance during meals and provide assistance as needed. Aspiration precautions apply. TACTICAL AIR DEFENSE CONTROLLER will continue to follow, re-assess for potential upgrade if/when appropriate. Oral Medication Intake: Crushed with Puree Please contact the pharmacy regarding appropriate crushable or liquid drug formulations that are available whenever modified delivery is recommended. Compensatory Strategies and Precautions to be Taken for Safe Swallow: Sitting Upright (90 deg) Double Swallow No Straw Small Bites and Sips Alternate Liquids/Solids Rate of Ingestion Change Supervision While Eating and Drinking for Safe Swallow: Total Supervision (1:1) Swallowing Recommended Treatments: Compens. Strategy Educat. Recommendation for Speech: Inpatient Speech Therapy Comment: Frequency/Duration: Date Range for Service Req: M-F Daily Timeline to reassess: Tank Truck Loader Clinican/Clinical Fellow: No Supervisory Statement: I have reviewed and agree with the student/clinical fellow's documentation: N/A Speech Language Pathologist: Aleyda Huerta M.A., CCC-TACTICAL AIR DEFENSE CONTROLLER
[2024-08-18] MEDS: Parenteral Nutrition 1,800 ML 75 ML IV (20:05)
[2024-08-18] MEDS: vancomycin HCL 125 MG CAPSULE PO (20:19)
[2024-08-19] VITALS (10 sets, daily range): BP systolic 112–164; BP diastolic 62–81; PULSE 77–110; RESP 16–20; TEMP 36.5–37.2; O2SAT 93–99; BMI 20.8
[2024-08-19] MEDS: Piperacillin Sodium/Tazobactam 4.5 GM in 0.9 % Sodium Chloride 100 ML IV ×4 (00:42→18:05)
[2024-08-19] MEDS: KCl 20 mEq in 5 % Dextrose 20 MEQ/1,000 ML IV.SOLN 125 MEQ IVCONT (01:46)
[2024-08-19] MEDS: vancomycin HCL 125 MG CAPSULE PO ×4 (03:59→21:07)
[2024-08-19] MEDS: vancomycin HCL 1,500 MG in 0.9 % Sodium Chloride 500 ML 333.33 MG IV (03:59)
[2024-08-19] MEDS: Albuterol/Iprat 2.5/0.5MG 3 ML AMPUL.NEB INHALE ×3 (05:48→19:28)
[2024-08-19] MEDS: Omeprazole 40 MG CAPSULE.DR PO ×2 (06:21→16:15)
[2024-08-19 07:42] LABS: MANUAL DIFF FLAG NO
[2024-08-19 07:55] LABS: Basophils Percent Auto 0.2 % (0-2); Eosinophils Absolute Auto 0.1 X10*3/uL (0.0-0.4); Eosinophils Percent Auto 0.8 % (0-4); Hematocrit 24.4 % (42.0-52.0); Hemoglobin 8.2 g/dl (14.0-18.0); Imm Gran Abs Auto 0.14 X10*3/uL (0.00-0.03); Lymphocytes Absolute Auto 1.4 X10*3/uL (1.2-4.9); Lymphocytes Percent Auto 9.6 % (20-40); Mean Corpuscular HGB Conc 33.6 g/dl (31.0-36.0); Mean Corpuscular Hemoglobin 33.7 pg (27.0-33.0); Mean Corpuscular Volume 100.4 fL (80.0-98.0); Mean Platelet Volume 11.4 fL (9.4-12.4); Monocytes Absolute Auto 0.4 X10*3/uL (0.1-1.2); Monocytes Percent Auto 2.7 % (2-11); Neutrophils Absolute Auto 12.5 x10*3/uL (2.0-8.3); Neutrophils Percent Auto 85.7 % (45-73); Platelet Count 389 X10*3/uL (160-400); Red Blood Count 2.43 X10*6/uL (4.60-5.80); Red Cell Distribution Width 16.6 % (11.0-16.0); White Blood Count 14.6 X10*3/uL (4.8-10.8)
[2024-08-19 08:09] LABS: Blood Urea Nitrogen 11 mg/dL (9-16); Calcium 7.5 mg/dL (8.4-10.2); Creatinine Clr Calc Pharmacy 118.4; Estimated Glomerular Filt Rate > 60; Glucose Random 155 mg/dL (60-115)
[2024-08-19 08:22] LABS: Anion Gap 13 (12-20)
[2024-08-19 08:27] LABS: Alanine Aminotransferase 19 U/L (0-40); Albumin Level 2.6 g/dL (3.5-5.0); Alkaline Phosphatase 192 U/L (39-117); Aspartate Amino Transferase 47 U/L (5-37); Carbon Dioxide 20 mmol/L (22-29); Chloride 109 mmol/L (96-108); Phosphorus 3.4 mg/dL (2.7-4.5); Sodium 139 mmol/L (135-145); Total Protein 5.8 g/dL (6.5-8.0)
[2024-08-19 08:33] LABS: Magnesium 1.1 mg/dL (1.6-2.6); Potassium 2.5 mmol/L (3.3-5.1)
[2024-08-19 08:51] LABS: Folate 12.1 ng/mL (> or = 4.0); Vitamin B12 453 pg/mL (200-900)
[2024-08-19] MEDS: Magnesium Sulfate/H2O 2 GM/50 ML PIGGYBACK IV (11:29)
[2024-08-19] MEDS: Potassium Chloride/H20 10 MEQ/100 ML PIGGYBACK 100 MEQ IV ×2 (11:29→13:01)
[2024-08-19] MEDS: Nicotine 14 MG PATCH.TD24 TRANSDERMA (11:30)
[2024-08-19] MEDS: Potassium Chloride Packet 20 MEQ PACKET 40 MEQ PO ×2 (11:31→16:19)
[2024-08-19] MEDS: Heparin Sodium,Porcine Flush 50 UNITS, 0.9 % Sodium Chloride Flush 5 ML IVFLUSH ×3 (11:32→20:57)
[2024-08-19] MEDS: 0.9 % Sodium Chloride Flush 3 ML SYRINGE IVFLUSH ×2 (11:33→16:19)
[2024-08-19] MEDS: Metoprolol Succinate ER 50 MG TAB.ER.24H PO (11:33)
[2024-08-19] MEDS: methylPREDNISolone Sod Succ 40 MG/ML VIAL IVPUSH (11:33)
[2024-08-19] MEDS: Enoxaparin Sodium 40 MG/0.4 ML SYRINGE SUBCUT (11:51)
--- NOTE | 2024-08-19 12:35 | P.PNIM_ITS ---
Subjective Subjective Date of Service: 08/19/24 Interval History: seen and evaluated alert and interavtive tolerating modified diet on nasal cannula now Review of Systems Review of Systems: Yes all other systems are reviewed and are negative Physical Exam 2 Vital Signs: Vital Signs: Last Vital Signs Temp 98.7 F 08/19/24 11:07 Pulse 83 08/19/24 12:15 Resp 18 08/19/24 12:15 BP 164/81 H 08/19/24 11:33 Pulse Ox 99 08/19/24 11:07 O2 Del Method Nasal Cannula 08/19/24 11:07 O2 Flow Rate 4 08/19/24 11:07 FiO2 35 08/18/24 03:37 BMI result Body Mass Index 20.8 Const: Other: Constitutional : Awake, interactive, in moderate respiratory distress Neck : Normal inspection, Supple Cardiovascular : RRR, no JVP, no lower extremity edema Respiratory : good bilateral air entry, fine crackles, wheezes or rhonchi, on O2 Gastrointestinal: soft, lax, Normal bowel sounds, Non tender Skin : Warm, Dry Neurological : Alert & oriented x3, No focal deficit Objective Data Active Medications Acetaminophen (Acetaminophen Oral Liquid 650 Mg/20.3 Ml Solution) 650 mg PO Q6H PRN PRN Reason: Fever >101 Last Admin: 08/15/24 13:57 Dose: 650 mg Documented By: SIMI Albuterol/Ipratropium (Albuterol/Iprat 2.5/0.5mg 3 Ml Ampul.Neb) 3 ml INHALE RQ6H [facility] Last Admin: 08/19/24 12:11 Dose: 3 ml Documented By: DONNA Heparin Sodium (Porcine) 50 (units/ Sodium Chloride 5 ml) 0 units IVFLUSH TID COUNT INCLUDES [facility] Last Admin: 08/19/24 11:32 Dose: 50 unit Documented By: SIMI Enoxaparin Sodium (Enoxaparin Sodium 40 Mg/0.4 Ml Syringe) 40 mg SUBCUT Q24H [facility] Last Admin: 08/19/24 11:51 Dose: 40 mg Documented By: SIMI Folic Acid 2 mg/ Sodium (Chloride) 50.4 mls @ 100.4 mls/hr IV DAILY [facility] Last Infusion: 08/18/24 08:37 Dose: Infused Documented By: HO.SZOTPAT Thiamine HCl 300 mg/ Sodium (Chloride) 103 mls @ 204 mls/hr IV DAILY [facility] Last Infusion: 08/19/24 12:30 Dose: Infused Documented By: SIMI Piperacillin Sod/Tazobactam (Sod 4.5 gm/ Sodium Chloride) 100 mls @ 200 mls/hr IV Q6H [facility] Last Infusion: 08/19/24 10:36 Dose: Infused Documented By: SIMI Nutrition (Parenteral) (Parenteral Nutrition) 1,800 mls @ 75 mls/hr IV .Q24H [facility]; Protocol Stop: 08/19/24 20:59 Last Infusion: 08/19/24 04:09 Dose: 0 mls/hr Documented By: FERNY Vancomycin HCl 1,500 mg/ (Sodium Chloride) 500 mls @ 333.333 mls/hr IV Q12H [facility] Last Infusion: 08/19/24 06:06 Dose: Infused Documented By: FERNY Nutrition (Parenteral) (Parenteral Nutrition) 2,280 mls @ 95 mls/hr IV .Q24H [facility]; Protocol Stop: 08/20/24 20:59 Ketorolac Tromethamine (Ketorolac Tromethamine 30 Mg/Ml Vial) 30 mg IVPUSH Q6H PRN PRN Reason: Pain, Moderate(4-6), Fever Methylprednisolone Sodium Succinate (Methylprednisolone Sod Succ 40 Mg/Ml Vial) 40 mg IVPUSH Q12H [facility] Last Admin: 08/19/24 11:33 Dose: 40 mg Documented By: SIMI Metoprolol Succinate (Metoprolol Succinate Er 50 Mg Tab.Er.24h) 50 mg PO DAILY [facility]; Protocol Last Admin: 08/19/24 11:33 Dose: 50 mg Documented By: SIMI Nicotine (Nicotine 14 Mg Patch.Td24) 14 mg TRANSDERMA DAILY [facility] Last Admin: 08/19/24 11:30 Dose: 14 mg Documented By: SIMI Omeprazole (Omeprazole 40 Mg Capsule.Dr) 40 mg PO BID@0630,1630 [facility] Last Admin: 08/19/24 06:21 Dose: 40 mg Documented By: FERNY Pharmacy Consult (Consult Rx Vancomycin Dosing) 1 each MISCELLANE DAILY PRN PRN Reason: Consult order Pharmacy Consult (Consult Rx Parenteral Nutrition Ordering) 1 each MISCELLANE DAILY PRN PRN Reason: Consult order Sodium Chloride (0.9 % Sodium Chloride Flush 3 Ml Syringe) 3 ml IVFLUSH QSHIFT COUNT [facility] Last Admin: 08/19/24 11:33 Dose: 3 ml Documented By: SIMI Vancomycin HCl (Vancomycin Hcl 125 Mg Capsule) 125 mg PO Q6H [facility] Last Admin: 08/19/24 11:33 Dose: 125 mg Documented By: SIMI Labs 08/19/24 07:01 08/19/24 07:01 Labs: Laboratory Results - last 24 hr 08/18/24 08/19/24 08/19/24 13:23 07:01 07:01 MCV 100.4 H MCH 33.7 H MCHC 33.6 RDW 16.6 H Plt Count 389 MPV 11.4 Immature Gran % (Auto) 1.0 H Neut % (Auto) 85.7 H Lymph % (Auto) 9.6 L Pope % (Auto) 2.7 Eos % (Auto) 0.8 Baso % (Auto) 0.2 Lymph # (Auto) 1.4 Pope # (Auto) 0.4 Eos # (Auto) 0.1 Baso # (Auto) 0.0 Abs Immat Gran (auto) 0.14 H Absolute Neuts (auto) 12.5 H Absolute Nucleated RBC 0.000 Nucleated RBC % (auto) 0.0 Anion Gap Cancelled 13 Estim Creat Clear Calc Cancelled Estimated GFR Random Glucose Calcium Phosphorus Magnesium Total Bilirubin AST ALT Alkaline Phosphatase Total Protein Albumin Vitamin B12 Folate Random Vancomycin 11.6 L 08/19/24 08/19/24 08/19/24 07:01 07:01 07:01 MCV MCH MCHC RDW Plt Count MPV Immature Gran % (Auto) Neut % (Auto) Lymph % (Auto) Pope % (Auto) Eos % (Auto) Baso % (Auto) Lymph # (Auto) Pope # (Auto) Eos # (Auto) Baso # (Auto) Abs Immat Gran (auto) Absolute Neuts (auto) Absolute Nucleated RBC Nucleated RBC % (auto) Anion Gap Estim Creat Clear Calc 118.4 Estimated GFR Cancelled > 60 Random Glucose Cancelled 155 H Calcium Cancelled Phosphorus Magnesium Total Bilirubin AST ALT Alkaline Phosphatase Total Protein Albumin Vitamin B12 Folate Random Vancomycin 08/19/24 08/19/24 08/19/24 07:01 07:01 07:01 MCV MCH MCHC RDW Plt Count MPV Immature Gran % (Auto) Neut % (Auto) Lymph % (Auto) Pope % (Auto) Eos % (Auto) Baso % (Auto) Lymph # (Auto) Pope # (Auto) Eos # (Auto) Baso # (Auto) Abs Immat Gran (auto) Absolute Neuts (auto) Absolute Nucleated RBC Nucleated RBC % (auto) Anion Gap Estim Creat Clear Calc Estimated GFR Random Glucose Calcium 7.5 L D Phosphorus Cancelled 3.4 Magnesium Cancelled 1.1 L* Total Bilirubin Cancelled AST ALT Alkaline Phosphatase Total Protein Albumin Vitamin B12 Folate Random Vancomycin 08/19/24 08/19/24 08/19/24 07:01 07:01 07:01 MCV MCH MCHC RDW Plt Count MPV Immature Gran % (Auto) Neut % (Auto) Lymph % (Auto) Pope % (Auto) Eos % (Auto) Baso % (Auto) Lymph # (Auto) Pope # (Auto) Eos # (Auto) Baso # (Auto) Abs Immat Gran (auto) Absolute Neuts (auto) Absolute Nucleated RBC Nucleated RBC % (auto) Anion Gap Estim Creat Clear Calc Estimated GFR Random Glucose Calcium Phosphorus Magnesium Total Bilirubin 1.0 AST Cancelled 47 H ALT Cancelled 19 Alkaline Phosphatase Cancelled Total Protein Albumin Vitamin B12 Folate Random Vancomycin 08/19/24 08/19/24 08/19/24 07:01 07:01 07:01 MCV MCH MCHC RDW Plt Count MPV Immature Gran % (Auto) Neut % (Auto) Lymph % (Auto) Pope % (Auto) Eos % (Auto) Baso % (Auto) Lymph # (Auto) Pope # (Auto) Eos # (Auto) Baso # (Auto) Abs Immat Gran (auto) Absolute Neuts (auto) Absolute Nucleated RBC Nucleated RBC % (auto) Anion Gap Estim Creat Clear Calc Estimated GFR Random Glucose Calcium Phosphorus Magnesium Total Bilirubin AST ALT Alkaline Phosphatase 192 H Total Protein Cancelled 5.8 L Albumin Cancelled 2.6 L Vitamin B12 453 Folate 12.1 Random Vancomycin Assessment and Plan (1) C. difficile diarrhea: Status: Acute (2) Pulmonary aspiration: Status: Acute (3) Acute respiratory failure with hypoxia: Status: Acute (4) Delirium tremens: Status: Acute (5) Shoulder fracture, right: Status: Acute Plan 54F PMH alcohol dependence presented on 08/06/2024 with mechanical fall and delirium tremens complicated by right shoulder fracture requiring ICU admission and Precedex complicated by hypotension and anemia, went on to develop sepsis due to pneumonia. Patient was weaned off Precedex and downgraded to medical floor on 08/14/2024 Sepsis and acute hypoxic respiratory failure secondary to pneumonia from aspiration no fever overnight Sputum culture grew E coli, but continues to be febrile negative pulm panel +ve C.Diff testing ceftriaxone broadened to vanc/zosyn, negative blood cultures DC IV Vancomycin continue Steroids IV Wean O2 as tolerated - still needing high flow TRANSITION OF CARE SPECIALIST rec NPO and MBSS once off high flow start PPN Alcohol dependence with acute metabolic encephalopathy and delirium tremens complicated by cardiogenic shock requiring ICU admission with Precedex and pressors Delirium tremens resolved Encephalopathy significantly improved Off pressors switch Folic acid and Thiamin to PO recovery team to follow C.Diff diarrhea Tested positive for Toxin Gene PO Vancomycin Q6 Acute on chronic anemia Likely inflammatory, transfused 1 unit PRBC 08/15/24 hgb improved acute hypokalemia and hpyomagnesemia K 2.5, Mg 1.1 replace IV and PO and monitor acute hypernatremia improved, monitor BMP Mechanical fall complicated by right shoulder fracture Follow up Orthopedics once resp status better - sling RUE, NWB RUE, eventual OR reduction by Wednesday DVT prophylaxis with Lovenox Full Code reason for continued hospitalization: Weaning down O2, PT evaluation, correcting Electrolytes Quality Stroke Does the patient have a stroke diagnosis?: No VTE Prior VTE?: No VTE Risk Level:: Medical - moderate - high VTE Device Contraindication: Treatment Not Indicated VTE Drug Contraindication: N/A - Med Ordered
[2024-08-19] MEDS: Magnesium Oxide 400 MG TABLET PO (16:15)
[2024-08-19] MEDS: Parenteral Nutrition 2,280 ML 95 ML IV (20:57)
--- NOTE | 2024-08-19 22:53 | PC.RT ---
Pt requested to not be woken up for breathing treatments
[2024-08-20] VITALS (8 sets, daily range): BP systolic 132–155; BP diastolic 64–89; PULSE 92–101; RESP 16–18; TEMP 36.8–37.6; O2SAT 91–95; BMI 21.5
[2024-08-20] MEDS: Piperacillin Sodium/Tazobactam 4.5 GM in 0.9 % Sodium Chloride 100 ML IV ×4 (02:30→18:30)
[2024-08-20] MEDS: vancomycin HCL 125 MG CAPSULE PO ×4 (05:21→22:41)
[2024-08-20] MEDS: Omeprazole 40 MG CAPSULE.DR PO ×2 (05:21→16:28)
[2024-08-20] MEDS: Ketorolac Tromethamine 30 MG/ML VIAL IVPUSH ×3 (05:28→19:51)
[2024-08-20 07:22] LABS: MANUAL DIFF FLAG NO
[2024-08-20 07:33] LABS: Basophils Percent Auto 0.3 % (0-2); Eosinophils Absolute Auto 0.2 X10*3/uL (0.0-0.4); Eosinophils Percent Auto 1.3 % (0-4); Hematocrit 23.7 % (42.0-52.0); Hemoglobin 8.1 g/dl (14.0-18.0); Imm Gran Abs Auto 0.36 X10*3/uL (0.00-0.03); Imm Gran Pct Auto 2.5 % (0.0-0.4); Lymphocytes Percent Auto 6.9 % (20-40); Mean Corpuscular HGB Conc 34.2 g/dl (31.0-36.0); Mean Corpuscular Hemoglobin 34.5 pg (27.0-33.0); Mean Corpuscular Volume 100.9 fL (80.0-98.0); Mean Platelet Volume 11.5 fL (9.4-12.4); Monocytes Absolute Auto 0.5 X10*3/uL (0.1-1.2); Monocytes Percent Auto 3.8 % (2-11); Neutrophils Absolute Auto 12.3 x10*3/uL (2.0-8.3); Neutrophils Percent Auto 85.2 % (45-73); Platelet Count 413 X10*3/uL (160-400); Red Blood Count 2.35 X10*6/uL (4.60-5.80); Red Cell Distribution Width 16.1 % (11.0-16.0); White Blood Count 14.4 X10*3/uL (4.8-10.8)
[2024-08-20 07:46] LABS: Alanine Aminotransferase 20 U/L (0-40); Albumin Level 2.5 g/dL (3.5-5.0); Alkaline Phosphatase 225 U/L (39-117); Anion Gap 14 (12-20); Aspartate Amino Transferase 48 U/L (5-37); Bilirubin Total 0.6 mg/dL (0.0-1.0); Blood Urea Nitrogen 13 mg/dL (9-16); Calcium 7.9 mg/dL (8.4-10.2); Carbon Dioxide 21 mmol/L (22-29); Chloride 107 mmol/L (96-108); Creatinine Clr Calc Pharmacy 115.2; Estimated Glomerular Filt Rate > 60; Glucose Random 233 mg/dL (60-115); Magnesium 1.6 mg/dL (1.6-2.6); Phosphorus 3.3 mg/dL (2.7-4.5); Potassium 2.8 mmol/L (3.3-5.1); Sodium 139 mmol/L (135-145); Total Protein 5.5 g/dL (6.5-8.0)
[2024-08-20] MEDS: Folic Acid 1 MG TABLET PO (10:24)
[2024-08-20] MEDS: Metoprolol Succinate ER 50 MG TAB.ER.24H PO (10:24)
[2024-08-20] MEDS: Thiamine HCL 100 MG TABLET PO (10:24)
[2024-08-20] MEDS: Magnesium Oxide 400 MG TABLET PO ×2 (10:24→16:28)
[2024-08-20] MEDS: Nicotine 14 MG PATCH.TD24 TRANSDERMA (10:24)
[2024-08-20] MEDS: Enoxaparin Sodium 40 MG/0.4 ML SYRINGE SUBCUT (10:24)
[2024-08-20] MEDS: predniSONE 20 MG TABLET 40 MG PO (10:24)
[2024-08-20] MEDS: 0.9 % Sodium Chloride Flush 3 ML SYRINGE IVFLUSH ×4 (10:25→22:42)
[2024-08-20] MEDS: 0.9 % Sodium Chloride Flush 10 ML SYRINGE 5 ML IVFLUSH ×3 (10:26→19:41)
--- NOTE | 2024-08-20 10:57 | P.PNIM_ITS ---
Subjective Subjective Date of Service: 08/20/24 Interval History: seen and evaluated alert and interavtive tolerating diet weaned off O2 Review of Systems Review of Systems: Yes all other systems are reviewed and are negative Physical Exam 2 Vital Signs: Vital Signs: Last Vital Signs Temp 99.6 F 08/20/24 07:23 Pulse 92 08/20/24 10:24 Resp 16 08/20/24 03:09 BP 132/64 08/20/24 10:24 Pulse Ox 93 08/20/24 07:23 O2 Del Method Room Air 08/20/24 07:23 O2 Flow Rate 3 08/19/24 20:00 FiO2 93 08/20/24 07:23 BMI result Body Mass Index 21.5 Const: Other: Constitutional : Awake, interactive, in moderate respiratory distress Neck : Normal inspection, Supple Cardiovascular : RRR, no JVP, no lower extremity edema Respiratory : good bilateral air entry, fine crackles, wheezes or rhonchi, on RA Gastrointestinal: soft, lax, Normal bowel sounds, Non tender Skin : Warm, Dry Neurological : Alert & oriented x3, No focal deficit Objective Data Active Medications Acetaminophen (Acetaminophen Oral Liquid 650 Mg/20.3 Ml Solution) 650 mg PO Q6H PRN PRN Reason: Fever >101 Last Admin: 08/15/24 13:57 Dose: 650 mg Documented By: SIMI Albuterol/Ipratropium (Albuterol/Iprat 2.5/0.5mg 3 Ml Ampul.Neb) 3 ml INHALE RQ6H [facility] Last Admin: 08/20/24 05:48 Dose: Not Given Documented By: BLANCA Non-Admin Reason: Patient Asleep Enoxaparin Sodium (Enoxaparin Sodium 40 Mg/0.4 Ml Syringe) 40 mg SUBCUT Q24H [facility] Last Admin: 08/20/24 10:24 Dose: 40 mg Documented By: SIMI Folic Acid (Folic Acid 1 Mg Tablet) 1 mg PO DAILY [facility] Last Admin: 08/20/24 10:24 Dose: 1 mg Documented By: SIMI Piperacillin Sod/Tazobactam (Sod 4.5 gm/ Sodium Chloride) 100 mls @ 200 mls/hr IV Q6H [facility] Last Admin: 08/20/24 10:24 Dose: 200 mls/hr Documented By: SIMI Ketorolac Tromethamine (Ketorolac Tromethamine 30 Mg/Ml Vial) 30 mg IVPUSH Q6H PRN PRN Reason: Pain, Moderate(4-6), Fever Last Admin: 08/20/24 05:28 Dose: 30 mg Documented By: PITO Loperamide HCl (Loperamide Hcl 2 Mg Capsule) 2 mg PO Q4H PRN PRN Reason: Diarrhea Magnesium Oxide (Magnesium Oxide 400 Mg Tablet) 400 mg PO BIDPC [facility] Last Admin: 08/20/24 10:24 Dose: 400 mg Documented By: SIMI Metoprolol Succinate (Metoprolol Succinate Er 50 Mg Tab.Er.24h) 50 mg PO DAILY [facility]; Protocol Last Admin: 08/20/24 10:24 Dose: 50 mg Documented By: SIMI Nicotine (Nicotine 14 Mg Patch.Td24) 14 mg TRANSDERMA DAILY [facility] Last Admin: 08/20/24 10:24 Dose: 14 mg Documented By: SIMI Omeprazole (Omeprazole 40 Mg Capsule.Dr) 40 mg PO BID@0630,1630 [facility] Last Admin: 08/20/24 05:21 Dose: 40 mg Documented By: PITO Pharmacy Consult (Consult Rx Parenteral Nutrition Ordering) 1 each MISCELLANE DAILY PRN PRN Reason: Consult order Potassium Chloride (Potassium Chloride Packet 20 Meq Packet) 40 meq PO Q2H [facility] Stop: 08/20/24 13:01 Prednisone (Prednisone 20 Mg Tablet) 40 mg PO DAILY [facility] Last Admin: 08/20/24 10:24 Dose: 40 mg Documented By: SIMI Sodium Chloride (0.9 % Sodium Chloride Flush 3 Ml Syringe) 3 ml IVFLUSH [facility] Last Admin: 08/20/24 10:25 Dose: 3 ml Documented By: SIMI Sodium Chloride (0.9 % Sodium Chloride Flush 10 Ml Syringe) 5 ml IVFLUSH [facility] Last Admin: 08/20/24 10:26 Dose: 5 ml Documented By: SIMI Thiamine HCl (Thiamine Hcl 100 Mg Tablet) 100 mg PO DAILY [facility] Last Admin: 08/20/24 10:24 Dose: 100 mg Documented By: SIMI Vancomycin HCl (Vancomycin Hcl 125 Mg Capsule) 125 mg PO Q6H [facility] Last Admin: 08/20/24 10:24 Dose: 125 mg Documented By: SIMI Labs 08/20/24 06:52 08/20/24 06:52 Labs: Laboratory Results - last 24 hr 08/20/24 08/20/24 08/20/24 06:52 06:52 06:52 MCV 100.9 H MCH 34.5 H MCHC 34.2 RDW 16.1 H Plt Count 413 H MPV 11.5 Immature Gran % (Auto) 2.5 H Neut % (Auto) 85.2 H Lymph % (Auto) 6.9 L [place] % (Auto) 3.8 Eos % (Auto) 1.3 Baso % (Auto) 0.3 Lymph # (Auto) 1.0 L [place] # (Auto) 0.5 Eos # (Auto) 0.2 Baso # (Auto) 0.0 Abs Immat Gran (auto) 0.36 H Absolute Neuts (auto) 12.3 H Absolute Nucleated RBC 0.000 Nucleated RBC % (auto) 0.0 Anion Gap 14 Cancelled Estim Creat Clear Calc 115.2 Cancelled Estimated GFR > 60 Random Glucose Calcium Phosphorus Magnesium Total Bilirubin AST ALT Alkaline Phosphatase Total Protein Albumin 08/20/24 08/20/24 08/20/24 06:52 06:52 06:52 MCV MCH MCHC RDW Plt Count MPV Immature Gran % (Auto) Neut % (Auto) Lymph % (Auto) [place] % (Auto) Eos % (Auto) Baso % (Auto) Lymph # (Auto) [place] # (Auto) Eos # (Auto) Baso # (Auto) Abs Immat Gran (auto) Absolute Neuts (auto) Absolute Nucleated RBC Nucleated RBC % (auto) Anion Gap Estim Creat Clear Calc Estimated GFR Cancelled Random Glucose 233 H Cancelled Calcium 7.9 L Cancelled Phosphorus 3.3 Magnesium 1.6 Total Bilirubin 0.6 AST 48 H ALT 20 Alkaline Phosphatase 225 H Total Protein 5.5 L Albumin 2.5 L Assessment and Plan (1) C. difficile diarrhea: Status: Acute (2) Pulmonary aspiration: Status: Acute (3) Acute respiratory failure with hypoxia: Status: Acute (4) Delirium tremens: Status: Acute (5) Shoulder fracture, right: Status: Acute Plan 54F H alcohol dependence presented on 08/06/2024 with mechanical fall and delirium tremens complicated by right shoulder fracture requiring ICU admission and Precedex complicated by hypotension and anemia, went on to develop sepsis due to pneumonia. Patient was weaned off Precedex and downgraded to medical floor on 08/14/2024 Mechanical fall complicated by right shoulder fracture Follow up Orthopedics once resp status better - sling RUE, NWB RUE, eventual OR reduction by Wednesday Sepsis and acute hypoxic respiratory failure secondary to pneumonia from aspiration no fever overnight Sputum culture grew E coli, but continues to be febrile negative pulm panel +ve C.Diff testing ceftriaxone broadened to vanc/zosyn, negative blood cultures, DC IV Vancomycin, to finish 1 week of Abx continue Steroids , switch to PO Wean O2 as tolerated - still needing high flow 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 NDD2 dc PPN Alcohol dependence with acute metabolic encephalopathy and delirium tremens complicated by cardiogenic shock requiring ICU admission with Precedex and pressors Delirium tremens resolved Encephalopathy significantly improved Off pressors switch Folic acid and Thiamin to PO recovery team to follow C.Diff diarrhea Tested positive for Toxin Gene PO Vancomycin Q6 Acute on chronic anemia Likely inflammatory, transfused 1 unit PRBC 08/15/24 hgb improved acute hypokalemia and hpyomagnesemia K 2.5, Mg 1.1 replace IV and PO and monitor acute hypernatremia improved, monitor BMP DVT prophylaxis with Lovenox Full Code reason for continued hospitalization: Weaning down O2, PT evaluation, correcting Electrolytes Quality Stroke Does the patient have a stroke diagnosis?: No VTE Prior VTE?: No VTE Risk Level:: Medical - moderate - high VTE Device Contraindication: Treatment Not Indicated VTE Drug Contraindication: N/A - Med Ordered
[2024-08-20] MEDS: Albuterol/Iprat 2.5/0.5MG 3 ML AMPUL.NEB INHALE ×2 (11:13→19:49)
[2024-08-20] MEDS: Potassium Chloride Packet 20 MEQ PACKET 40 MEQ PO ×3 (13:35→18:30)
--- NOTE | 2024-08-20 23:08 | PC.NURSE ---
Rectal tube found to be out and patient incontinent on the bed 22:00 hour. BM count and 800ml liquid brown stool noted in previous rectal tube appliance. Incontinence care provided and rectal tube was replaced. Triad applied to buttocks for MASD. Male PW in place, patent of adequate amounts cyu. Continues on contact precautions.
[2024-08-21] VITALS (10 sets, daily range): BP systolic 148–185; BP diastolic 76–91; PULSE 80–93; RESP 16–20; TEMP 36.3–37.1; O2SAT 95–100; BMI 22.2
[2024-08-21] MEDS: Piperacillin Sodium/Tazobactam 4.5 GM in 0.9 % Sodium Chloride 100 ML IV ×3 (01:08→13:32)
[2024-08-21] MEDS: Albuterol/Iprat 2.5/0.5MG 3 ML AMPUL.NEB INHALE ×3 (01:15→18:44)
[2024-08-21] MEDS: vancomycin HCL 125 MG CAPSULE PO ×4 (04:18→23:07)
[2024-08-21] MEDS: Ketorolac Tromethamine 30 MG/ML VIAL IVPUSH ×2 (04:19→20:11)
[2024-08-21] MEDS: Omeprazole 40 MG CAPSULE.DR PO ×2 (06:07→19:49)
[2024-08-21 08:16] LABS: MANUAL DIFF FLAG NO
[2024-08-21 08:35] LABS: Basophils Percent Auto 0.2 % (0-2); Eosinophils Absolute Auto 0.1 X10*3/uL (0.0-0.4); Eosinophils Percent Auto 0.3 % (0-4); Hematocrit 27.3 % (42.0-52.0); Hemoglobin 9.3 g/dl (14.0-18.0); Imm Gran Abs Auto 0.38 X10*3/uL (0.00-0.03); Imm Gran Pct Auto 2.4 % (0.0-0.4); Lymphocytes Absolute Auto 1.1 X10*3/uL (1.2-4.9); Lymphocytes Percent Auto 6.8 % (20-40); Mean Corpuscular HGB Conc 34.1 g/dl (31.0-36.0); Mean Corpuscular Hemoglobin 34.3 pg (27.0-33.0); Mean Corpuscular Volume 100.7 fL (80.0-98.0); Mean Platelet Volume 10.6 fL (9.4-12.4); Monocytes Absolute Auto 0.5 X10*3/uL (0.1-1.2); Neutrophils Absolute Auto 14.1 x10*3/uL (2.0-8.3); Neutrophils Percent Auto 87.3 % (45-73); Platelet Count 478 X10*3/uL (160-400); Red Blood Count 2.71 X10*6/uL (4.60-5.80); Red Cell Distribution Width 16.2 % (11.0-16.0); White Blood Count 16.1 X10*3/uL (4.8-10.8)
--- NOTE | 2024-08-21 08:44 | PM.PNORT ---
Subjective Subjective Date of Service: 08/21/24 Interval history: Right shoulder fracture dislocation Patient is resting comfortably in bed Alert to self and place confused on day Denies pain Physical Exam Vital Signs: Vital Signs: Last Vital Signs Temp 98.0 F 08/21/24 03:56 Pulse 93 08/21/24 03:56 Resp 17 08/21/24 03:56 BP 150/78 H 08/21/24 04:10 Pulse Ox 95 08/21/24 03:56 O2 Del Method Room Air 08/21/24 03:56 O2 Flow Rate 3 08/19/24 20:00 FiO2 93 08/20/24 07:23 BMI result Body Mass Index 22.2 Extrem: Other: Right shoulder in a sling. He has good sensation of the anterior deltoid forearm wrist and hand. Good motor function with radial ulnar and median nerve function. Cap refill brisk. Procedures Date of Service Date of Service: 08/21/24 Progress Note: A&P Assessment and plan (1) Shoulder fracture, right: Status: Acute Assessment and Plan: I discussed with the patient the extent of his injury. I explained to the very least we should attempt to reduce the shoulder so he could have somewhat normal function. I explained that he may not have full use of the shoulder such as range of motion and strength. This is his nondominant hand. He would like to proceed with closed versus open reduction of the right shoulder. Patient will remain NPO tonight. I did explain the risks benefits and alternatives. Risks including but not limited to recurrent dislocation/instability. Pain, stiffness. Nerve and tissue injury. Bone injury. Time Spent With Patient Time: Total time managing care of this patient today ____ minutes. Quality Stroke Does the patient have a stroke diagnosis?: No VTE Prior VTE?: No VTE Risk Level:: Medical - moderate - high VTE Device Contraindication: Treatment Not Indicated VTE Drug Contraindication: N/A - Med Ordered
[2024-08-21 09:06] LABS: Alanine Aminotransferase 27 U/L (0-40); Albumin Level 2.7 g/dL (3.5-5.0); Alkaline Phosphatase 236 U/L (39-117); Anion Gap 10 (12-20); Aspartate Amino Transferase 43 U/L (5-37); Bilirubin Total 0.6 mg/dL (0.0-1.0); Blood Urea Nitrogen 13 mg/dL (9-16); Calcium 8.2 mg/dL (8.4-10.2); Carbon Dioxide 21 mmol/L (22-29); Chloride 110 mmol/L (96-108); Creatinine Clr Calc Pharmacy 118.9; Estimated Glomerular Filt Rate > 60; Glucose Random 162 mg/dL (60-115); Magnesium 1.3 mg/dL (1.6-2.6); Phosphorus 3.4 mg/dL (2.7-4.5); Potassium 3.8 mmol/L (3.3-5.1); Sodium 137 mmol/L (135-145); Total Protein 6.1 g/dL (6.5-8.0)
[2024-08-21] MEDS: Magnesium Oxide 400 MG TABLET PO ×2 (09:16→19:49)
--- NOTE | 2024-08-21 09:53 | HO.PM.IMPN ---
Subjective Subjective Date of Service: 08/21/24 Interval History: seen and evaluated alert and interavtive tolerating diet weaned off O2 still having diarrhea Review of Systems Review of Systems: Yes all other systems are reviewed and are negative Physical Exam Vital Signs: Vital Signs: Last Vital Signs Temp 97.9 F 08/21/24 08:00 Pulse 80 08/21/24 08:00 Resp 20 08/21/24 08:00 BP 185/91 H 08/21/24 08:00 Pulse Ox 95 08/21/24 08:00 O2 Del Method Room Air 08/21/24 08:00 O2 Flow Rate 3 08/19/24 20:00 FiO2 93 08/20/24 07:23 BMI result Body Mass Index 22.2 Const: Other: Constitutional : Awake, interactive, in moderate respiratory distress Neck : Normal inspection, Supple Cardiovascular : RRR, no JVP, no lower extremity edema Respiratory : good bilateral air entry, fine crackles, wheezes or rhonchi, on RA Gastrointestinal: soft, lax, Normal bowel sounds, Non tender Skin : Warm, Dry Neurological : Alert & oriented x3, No focal deficit Objective Data Active Medications Acetaminophen (Acetaminophen Oral Liquid 650 Mg/20.3 Ml Solution) 650 mg PO Q6H PRN PRN Reason: Fever >101 Last Admin: 08/15/24 13:57 Dose: 650 mg Documented By: SIMI Albuterol/Ipratropium (Albuterol/Iprat 2.5/0.5mg 3 Ml Ampul.Neb) 3 ml INHALE RQ6H [facility] Last Admin: 08/21/24 05:38 Dose: Not Given Documented By: STACEY Non-Admin Reason: Patient Asleep Enoxaparin Sodium (Enoxaparin Sodium 40 Mg/0.4 Ml Syringe) 40 mg SUBCUT Q24H [facility] Last Admin: 08/20/24 10:24 Dose: 40 mg Documented By: SIMI Folic Acid (Folic Acid 1 Mg Tablet) 1 mg PO DAILY [facility] Last Admin: 08/20/24 10:24 Dose: 1 mg Documented By: SIMI Piperacillin Sod/Tazobactam (Sod 4.5 gm/ Sodium Chloride) 100 mls @ 200 mls/hr IV Q6H [facility] Stop: 08/21/24 16:00 Last Admin: 08/21/24 09:16 Dose: 200 mls/hr Documented By: BRIANA Ketorolac Tromethamine (Ketorolac Tromethamine 30 Mg/Ml Vial) 30 mg IVPUSH Q6H PRN PRN Reason: Pain, Moderate(4-6), Fever Last Admin: 08/21/24 04:19 Dose: 30 mg Documented By: JA Loperamide HCl (Loperamide Hcl 2 Mg Capsule) 2 mg PO Q4H PRN PRN Reason: Diarrhea Magnesium Oxide (Magnesium Oxide 400 Mg Tablet) 400 mg PO BIDPC [facility] Last Admin: 08/21/24 09:16 Dose: 400 mg Documented By: BRIANA Metoprolol Succinate (Metoprolol Succinate Er 50 Mg Tab.Er.24h) 50 mg PO DAILY [facility]; Protocol Last Admin: 08/20/24 10:24 Dose: 50 mg Documented By: SIMI Nicotine (Nicotine 14 Mg Patch.Td24) 14 mg TRANSDERMA DAILY [facility] Last Admin: 08/20/24 10:24 Dose: 14 mg Documented By: SIMI Omeprazole (Omeprazole 40 Mg Capsule.Dr) 40 mg PO BID@0630,1630 [facility] Last Admin: 08/21/24 06:07 Dose: 40 mg Documented By: THOMPSON Prednisone (Prednisone 20 Mg Tablet) 40 mg PO DAILY [facility] Last Admin: 08/20/24 10:24 Dose: 40 mg Documented By: SIMI Sodium Chloride (0.9 % Sodium Chloride Flush 3 Ml Syringe) [facility] Last Admin: 08/20/24 22:42 Dose: 3 ml Documented By: THOMPSON Sodium Chloride (0.9 % Sodium Chloride Flush 10 Ml Syringe) [facility] Last Admin: 08/20/24 19:41 Dose: 5 ml Documented By: THOMPSON Thiamine HCl (Thiamine Hcl 100 Mg Tablet) 100 mg PO DAILY [facility] Last Admin: 08/20/24 10:24 Dose: 100 mg Documented By: SIMI Vancomycin HCl (Vancomycin Hcl 125 Mg Capsule) 125 mg PO Q6H [facility] Last Admin: 08/21/24 04:18 Dose: 125 mg Documented By: JA Labs 08/21/24 08:27 08/21/24 08:27 Labs: Laboratory Results - last 24 hr 08/21/24 08:27 MCV 100.7 H MCH 34.3 H MCHC 34.1 RDW 16.2 H Plt Count 478 H MPV 10.6 Immature Gran % (Auto) 2.4 H Neut % (Auto) 87.3 H Lymph % (Auto) 6.8 L [place] % (Auto) 3.0 Eos % (Auto) 0.3 Baso % (Auto) 0.2 Lymph # (Auto) 1.1 L [place] # (Auto) 0.5 Eos # (Auto) 0.1 Baso # (Auto) 0.0 Abs Immat Gran (auto) 0.38 H Absolute Neuts (auto) 14.1 H Absolute Nucleated RBC 0.000 Nucleated RBC % (auto) 0.0 Anion Gap 10 L Estim Creat Clear Calc 118.9 Estimated GFR > 60 Random Glucose 162 H Calcium 8.2 L Phosphorus 3.4 Magnesium 1.3 L* Total Bilirubin 0.6 AST 43 H ALT 27 Alkaline Phosphatase 236 H Total Protein 6.1 L Albumin 2.7 L Microbiology Microbiology Results: Microbiology 08/15/24 14:22 Blood Culture - Final Blood - Venous No growth after 5 days. 08/15/24 14:13 Blood Culture - Final Blood - Venous No growth after 5 days. Assessment and Plan (1) C. difficile diarrhea: Status: Acute (2) Pulmonary aspiration: Status: Acute (3) Acute respiratory failure with hypoxia: Status: Acute (4) Delirium tremens: Status: Acute (5) Shoulder fracture, right: Status: Acute Plan 54F PMH alcohol dependence presented on 08/06/2024 with mechanical fall and delirium tremens complicated by right shoulder fracture requiring ICU admission and Precedex complicated by hypotension and anemia, went on to develop sepsis due to pneumonia. Patient was weaned off Precedex and downgraded to medical floor on 08/14/2024 Mechanical fall complicated by right shoulder fracture Follow up Orthopedics once resp status better - sling RUE, NWVikki RUE, eventual OR reduction by Wednesday NPO post midnight Sepsis and acute hypoxic respiratory failure secondary to pneumonia from aspiration no fever overnight Sputum culture grew E coli, but continues to be febrile negative pulm panel +ve C.Diff testing ceftriaxone broadened to vanc/zosyn, negative blood cultures, DC IV Vancomycin, to finish 1 week of Abx continue Steroids , switch to PO Wean O2 as tolerated - still needing high flow Swallowing problem [employer] rec regular diet dcd PPN Alcohol dependence with acute metabolic encephalopathy and delirium tremens complicated by cardiogenic shock requiring ICU admission with Precedex and pressors Delirium tremens resolved Encephalopathy significantly improved Off pressors switch Folic acid and Thiamin to PO recovery team to follow C.Diff diarrhea Tested positive for Toxin Gene PO Vancomycin Q6 Imodium as needed Acute on chronic anemia Likely inflammatory, transfused 1 unit PRBC 08/15/24 hgb improved acute hypokalemia and hpyomagnesemia K 2.5, Mg 1.1 replace IV and PO and monitor acute hypernatremia improved, monitor BMP DVT prophylaxis with Lovenox Full Code reason for continued hospitalization: Weaning down O2, PT evaluation, correcting Electrolytes Quality Stroke Does the patient have a stroke diagnosis?: No VTE Prior VTE?: No VTE Risk Level:: Medical - moderate - high VTE Device Contraindication: Treatment Not Indicated VTE Drug Contraindication: N/A - Med Ordered
--- NOTE | 2024-08-21 12:25 | MHC.CLN ---
F/U PPN D/C 08/20 DIET ADVANCED TO REGULAR PER FACE CLEANER TODAY NO PO INTAKE RECORDED AT THIS TIME MONITOR PO INTAKE CLOSELY RD TO FOLLOW WEEKLY
[2024-08-21] MEDS: Nicotine 14 MG PATCH.TD24 TRANSDERMA (13:09)
[2024-08-21] MEDS: predniSONE 20 MG TABLET 40 MG PO (13:10)
[2024-08-21] MEDS: Folic Acid 1 MG TABLET PO (13:10)
[2024-08-21] MEDS: Metoprolol Succinate ER 50 MG TAB.ER.24H PO (13:10)
[2024-08-21] MEDS: Thiamine HCL 100 MG TABLET PO (13:10)
[2024-08-21] MEDS: amLODIPine Besylate 5 MG TABLET PO (13:10)
[2024-08-21] MEDS: Magnesium Sulfate/H2O 2 GM/50 ML PIGGYBACK IV (13:11)
[2024-08-21] MEDS: 0.9 % Sodium Chloride Flush 10 ML SYRINGE 5 ML IVFLUSH ×2 (13:12→19:50)
[2024-08-21] MEDS: 0.9 % Sodium Chloride Flush 3 ML SYRINGE IVFLUSH ×2 (13:12→19:50)
[2024-08-21] MEDS: Loperamide HCl 2 MG CAPSULE PO (13:13)
--- NOTE | 2024-08-21 14:16 | MHC.CM.PN ---
Per rounds, pt is not ready to DC, he will have surgery tomorrow. CM to follow for DC needs.
[2024-08-22] VITALS (10 sets, daily range): BP systolic 117–166; BP diastolic 69–86; PULSE 82–96; RESP 16–20; TEMP 36.6–37.4; O2SAT 92–99
[2024-08-22] MEDS: 0.9 % Sodium Chloride Flush 3 ML SYRINGE IVFLUSH ×4 (00:53→23:34)
[2024-08-22] MEDS: vancomycin HCL 125 MG CAPSULE PO ×4 (04:13→21:46)
[2024-08-22] MEDS: Omeprazole 40 MG CAPSULE.DR PO ×2 (06:29→17:35)
[2024-08-22] MEDS: 0.9 % Sodium Chloride Flush 10 ML SYRINGE 5 ML IVFLUSH ×4 (06:31→23:34)
[2024-08-22 08:36] LABS: Alanine Aminotransferase 27 U/L (0-40); Alkaline Phosphatase 255 U/L (39-117); Anion Gap 13 (12-20); Aspartate Amino Transferase 44 U/L (5-37); Bilirubin Total 0.8 mg/dL (0.0-1.0); Blood Urea Nitrogen 9 mg/dL (9-16); Calcium 8.7 mg/dL (8.4-10.2); Carbon Dioxide 24 mmol/L (22-29); Chloride 106 mmol/L (96-108); Creatinine Clr Calc Pharmacy 130.5; Estimated Glomerular Filt Rate > 60; Glucose Random 96 mg/dL (60-115); Phosphorus 2.9 mg/dL (2.7-4.5); Potassium 3.5 mmol/L (3.3-5.1); Sodium 139 mmol/L (135-145); Total Protein 6.8 g/dL (6.5-8.0)
[2024-08-22] MEDS: Thiamine HCL 100 MG TABLET PO (08:47)
[2024-08-22] MEDS: Folic Acid 1 MG TABLET PO (08:47)
[2024-08-22] MEDS: amLODIPine Besylate 5 MG TABLET PO (08:47)
[2024-08-22] MEDS: Metoprolol Succinate ER 50 MG TAB.ER.24H PO (08:47)
[2024-08-22] MEDS: Magnesium Oxide 400 MG TABLET PO ×2 (08:47→17:34)
[2024-08-22] MEDS: predniSONE 20 MG TABLET 40 MG PO (08:47)
[2024-08-22] MEDS: Nicotine 14 MG PATCH.TD24 TRANSDERMA (08:48)
--- NOTE | 2024-08-22 08:58 | MHC.SLORD ---
Speech Language Pathology Order Status: Patient is NPO for procedure today- not seen for dysphagia treatment. Upgraded yesterday to regular texture solids and thin liquids. Resume diet when cleared by surgery. MEDICAL INSTRUMENT CABLE FABRICATOR to f/u 1x to ensure tolerance tomorrow.
[2024-08-22] MEDS: Morphine Sulfate 2 MG/ML CARTRIDGE IVPUSH ×2 (11:31→21:56)
[2024-08-22] MEDS: levETIRAcetam in NaCl (iso-os) 500 MG/100 ML PIGGYBACK 400 MG IV (11:31)
--- NOTE | 2024-08-22 12:27 | MHC.SHP ---
Pre-Procedural Eval Section A - 24 Hr Update-Section A only Date of Service: 08/22/24 The patient is an INPATIENT: No Changes since office visit: No Cold of Flu in the past 2 weeks, No New Medical Problems, No Changes in Medication and No Patient answered all questions The patient has been examined within 24 hours of the surgical procedure. The History & Physical has been completed within 30 days and I have reviewed it.: Yes Section B - Complete if H&P > 30 days Chief Complaint: Delirium tremens Allergies: Allergies Allergy/AdvReac Type Severity Reaction Status Date / Time No Known Allergies Allergy Verified 08/06/24 06:06 Plan I have reviewed the history and physical and performed a pertinent physical examination on my patient. No changes have occurred unless specified. Time Spent With Patient Time: Total time managing care of this patient today ____ minutes.
[2024-08-22 12:59] LABS: Magnesium 1.4 mg/dL (1.6-2.6)
--- NOTE | 2024-08-22 13:03 | P.CONAN_ITS ---
[facility] Active Problems Active Problems: All Active Problems C. difficile diarrhea (Acute) Pulmonary aspiration (Acute) Acute respiratory failure with hypoxia (Acute) Delirium tremens (Acute) Shoulder fracture, right (Acute) Fracture, humerus, proximal (Acute) Acidosis, lactic (Acute) Metabolic acidosis, increased anion gap (Acute) Alcohol withdrawal seizure with delirium (Acute) Hypokalemia (Acute) Hypomagnesemia (Acute) Internal derangement of right knee (Acute) Dupuytren's disease of palm of both hands (Acute) Ganglion cyst of volar aspect of right wrist (Acute) Right upper limb pain (Acute) Numbness and tingling in right hand (Acute) Carpal tunnel syndrome of right wrist (Acute) Cubital tunnel syndrome on right (Acute) Numbness and tingling in left hand (Acute) Carpal tunnel syndrome of left wrist (Acute) Cubital tunnel syndrome on left (Acute) Past Medical History Medical History Syncope Back pain Anemia Numbness and tingling in left arm Insomnia Chest pain Bulging lumbar disc Family History Family history of problems with anesthesia: No Surgical History Surgical History History of carpal tunnel surgery of right wrist H/O arthroscopy of left knee History of Problems with Anesthesia: No Social History Social History Household Members: Family Housing: House Are you a primary critical care technician to a significant other at home: No Do you presently have visiting nurse or other home services: No Alcohol intake: current Alcohol intake frequency: 3 or more drinks per day Alcohol type: beer Comment: 1:1 sitter at bedside Patient Tobacco Use Status: Tobacco use Unknown Tobacco use type: Cigarette Cigarette Packs Per Day: 2 Cigarettes Per Day: 40.0 Years Smoked: 35 Smoked in Last 30 Days: Yes Use of substances other than those prescribed or required for medical reasons: Unknown Currently Displaying Signs/Symptoms of Drug Intoxication Withdrawal: No Advance Directives: No Advance Directives Information Provided: No Do you have a plan to hurt others: No Plan Recently lost weight without trying: Unsure How much weight loss: Unsure service: No 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al status: unemployed 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 Allergies Allergy/AdvReac Type Severity Reaction Status Date / Time No Known Allergies Allergy Verified 08/06/24 06:06 Active Medications: Current Medications Acetaminophen (Acetaminophen Oral Liquid 650 Mg/20.3 Ml Solution) 650 mg PO Q6H PRN PRN Reason: Fever >101 Last Admin: 08/15/24 13:57 Dose: 650 mg Albuterol/Ipratropium (Albuterol/Iprat 2.5/0.5mg 3 Ml Ampul.Neb) 3 ml INHALE RQ6H [facility] Last Admin: 08/22/24 11:15 Dose: Not Given Amlodipine Besylate (Amlodipine Besylate 5 Mg Tablet) 5 mg PO DAILY [facility]; Protocol Last Admin: 08/22/24 08:47 Dose: 5 mg Enoxaparin Sodium (Enoxaparin Sodium 40 Mg/0.4 Ml Syringe) 40 mg SUBCUT Q24H [facility] Last Admin: 08/21/24 13:14 Dose: Not Given Folic Acid (Folic Acid 1 Mg Tablet) 1 mg PO DAILY [facility] Last Admin: 08/22/24 08:47 Dose: 1 mg Levetiracetam (Levetiracetam 500 Mg Tablet) 500 mg PO BID [facility] Loperamide HCl (Loperamide Hcl 2 Mg Capsule) 2 mg PO Q4H PRN PRN Reason: Diarrhea Last Admin: 08/21/24 13:13 Dose: 2 mg [facility]esium Oxide ([facility] 400 Mg [facility] Last Admin: 08/22/24 08:47 Dose: 400 mg Metoprolol Succinate (Metoprolol Succinate Er 50 Mg Tab.Er.24h) 50 mg PO DAILY [facility]; Protocol Last Admin: 08/22/24 08:47 Dose: 50 mg Morphine Sulfate (Morphine Sulfate 2 Mg/Ml Cartridge) 2 mg IVPUSH Q4H PRN; Protocol PRN Reason: Pain, Severe (Pain Scale 7-10) Last Admin: 08/22/24 11:31 Dose: 2 mg Nicotine (Nicotine 14 Mg Patch.Td24) 14 mg TRANSDERMA DAILY [facility] Last Admin: 08/22/24 08:48 Dose: 14 mg Omeprazole (Omeprazole 40 Mg Capsule.Dr) 40 mg PO BID@0630,1630 [facility] Last Admin: 08/22/24 06:29 Dose: 40 mg Prednisone (Prednisone 20 Mg Tablet) 40 mg PO DAILY [facility] Last Admin: 08/22/24 08:47 Dose: 40 mg Sodium Chloride (0.9 % Sodium Chloride Flush 3 Ml Syringe) [facility] Last Admin: 08/22/24 08:53 Dose: 3 ml Sodium Chloride (0.9 % Sodium Chloride Flush 10 Ml Syringe) 5 ml IVFLUSH [facility] Last Admin: 08/22/24 08:47 Dose: 5 ml Thiamine HCl (Thiamine Hcl 100 Mg Tablet) 100 mg PO DAILY [facility] Last Admin: 08/22/24 08:47 Dose: 100 mg Vancomycin HCl (Vancomycin Hcl 125 Mg Capsule) 125 mg PO Q6H [facility] Last Admin: 08/22/24 08:58 Dose: 125 mg Home Medications ?Medication ?Instructions ?Recorded ?Confirmed ?Last Taken ?Type No Known Home Meds 08/06/24 08/06/24 Unknown History Exam Height,Weight and Vital Signs: Height 5 ft 8 in Weight 66.2 kg Last Vital Signs Temp 98.4 F 08/22/24 07:00 Pulse 96 08/22/24 07:00 Resp 18 08/22/24 07:00 BP 164/70 H 08/22/24 07:00 Pulse Ox 94 08/22/24 07:00 O2 Del Method Room Air 08/22/24 07:00 O2 Flow Rate 3 08/19/24 20:00 FiO2 93 08/20/24 07:23 Pertinent Lab Results Pertinent Lab Results: Laboratory Tests 08/06/24 08/06/24 08/06/24 05:48 06:19 06:29 WBC 13.4 H RBC 3.51 L Hgb 12.9 L Hct 35.1 L MCV 100.0 H MCH 36.8 H MCHC 36.8 H RDW 13.2 Plt Count 128 L D MPV Not Reportable Immature Gran % (Auto) 1.0 H Neut % (Auto) 81.1 H Lymph % (Auto) 4.6 L [place] % (Auto) 12.9 H Eos % (Auto) 0.1 Baso % (Auto) 0.3 Lymph # (Auto) 0.6 L [place] # (Auto) 1.7 H Eos # (Auto) 0.0 Baso # (Auto) 0.0 Abs Immat Gran (auto) 0.14 H Absolute Neuts (auto) 10.8 H Absolute Nucleated RBC 0.000 Nucleated RBC % (auto) 0.0 Neutrophils % (Manual) Band Neutrophils % Lymphocytes % (Manual) Monocytes % (Manual) Abs Neuts (Manual) Lymphocytes # (Manual) Monocytes # (Manual) Toxic Granulation Toxic Vacuolation Dohle Bodies Platelet Estimate Large Platelets Plt Morphology Comment RBC Morphology Polychromasia Hypochromasia Macrocytosis Target Cells Ovalocytes Smear Tech's Comments VERIFIED Smear Path Review Hold Purple Top O2 Saturation ABG pH at Pt Temp ABG pCO2 at Pt Temp ABG pO2 at Pt Temp ABG HCO3 ABG Base Excess (Actual) VBG pH VBG pCO2 VBG pO2 VBG HCO3 VBG O2 Saturation VBG Base Excess Sodium 139 Potassium 2.4 L* Chloride 94 L Carbon Dioxide 17 L Anion Gap 30 H BUN 11 Creatinine 1.25 Estim Creat Clear Calc 66.8 Estimated GFR > 60 POC Glucose 200 H 182 H Random Glucose 178 H Lactic Acid 12.2 H* Lactic Acid F/U @ 2Hr Calcium 8.1 L Phosphorus Magnesium Total Bilirubin 1.9 H Direct Bilirubin AST 93 H ALT 43 H Alkaline Phosphatase 88 Ammonia Troponin I High Sens 6.8 D C-Reactive Protein B-Natriuretic Peptide Total Protein 7.6 Albumin 4.1 Triglycerides Vitamin B12 Folate Procalcitonin Stool Occult Blood Random Vancomycin Urine Opiates Screen Ur Buprenorphine Scrn Ur Oxycodone Screen Urine Methadone Screen Urine Fentanyl Screen Ur Barbiturates Screen Ur Phencyclidine Scrn Ur Amphetamines Screen U Benzodiazepines Scrn Urine Cocaine Screen U Marijuana (THC) Screen Ethyl Alcohol < 10 Respiratory Panel Gtz Adenovirus (Rapid PCR) B.pert (TEM-PCR) B.parapertussis DNA PCR C. pneumoniae DNA (PCR) C. difficile Tox B Gene C. difficile Toxin A&B C. difficile Interpret Coronavirus OC43 (PCR) Coronavirus HKU1 (PCR) Coronavirus 229E (PCR) Coronavirus NL63 (PCR) Human Metapneumovir PCR Influenza A (RT-PCR) Influenza A (H1) PCR Influ A (H1/09) PCR Influenza A (H3) PCR Influenza B (RT-PCR) M. pneumoniae (PCR) Parainfluenza 1 (PCR) Parainfluenza 2 (PCR) Parainfluenza 3 (PCR) Parainfluenza 4 (PCR) RSV (PCR) Entero/Rhino (PCR) SARS-CoV-2 RNA (RT-PCR) Blood Type Antibody Screen Crossmatch 08/06/24 08/06/24 08/06/24 09:01 09:29 11:21 WBC RBC Hgb Hct MCV MCH MCHC RDW Plt Count MPV Immature Gran % (Auto) Neut % (Auto) Lymph % (Auto) [place] % (Auto) Eos % (Auto) Baso % (Auto) Lymph # (Auto) [place] # (Auto) Eos # (Auto) Baso # (Auto) Abs Immat Gran (auto) Absolute Neuts (auto) Absolute Nucleated RBC Nucleated RBC % (auto) Neutrophils % (Manual) Band Neutrophils % Lymphocytes % (Manual) Monocytes % (Manual) Abs Neuts (Manual) Lymphocytes # (Manual) Monocytes # (Manual) Toxic Granulation Toxic Vacuolation Dohle Bodies Platelet Estimate Large Platelets Plt Morphology Comment RBC Morphology Polychromasia Hypochromasia Macrocytosis Target Cells Ovalocytes Smear Tech's Comments Smear Path Review Hold Purple Top O2 Saturation ABG pH at Pt Temp ABG pCO2 at Pt Temp ABG pO2 at Pt Temp ABG HCO3 ABG Base Excess (Actual) VBG pH VBG pCO2 VBG pO2 VBG HCO3 VBG O2 Saturation VBG Base Excess Sodium 138 Potassium 2.5 L* Chloride 97 Carbon Dioxide 23 Anion Gap 21 H BUN 8 L Creatinine 0.74 Estim Creat Clear Calc 112.9 Estimated GFR > 60 POC Glucose Random Glucose 113 Lactic Acid 3.6 H* Lactic Acid F/U @ 2Hr 1.4 Calcium 7.6 L D Phosphorus Magnesium Total Bilirubin Direct Bilirubin AST ALT Alkaline Phosphatase Ammonia Troponin I High Sens C-Reactive Protein B-Natriuretic Peptide Total Protein Albumin Triglycerides Vitamin B12 Folate Procalcitonin Stool Occult Blood Random Vancomycin Urine Opiates Screen Not Detected Ur Buprenorphine Scrn Not Detected Ur Oxycodone Screen Not Detected Urine Methadone Screen Not Detected Urine Fentanyl Screen Not Detected Ur Barbiturates Screen Not Detected Ur Phencyclidine Scrn Not Detected Ur Amphetamines Screen Not Detected U Benzodiazepines Scrn Not Detected Urine Cocaine Screen Not Detected U Marijuana (THC) Screen Not Detected Ethyl Alcohol Respiratory Panel Gtz Adenovirus (Rapid PCR) B.pert (TEM-PCR) B.parapertussis DNA PCR C. pneumoniae DNA (PCR) C. difficile Tox B Gene C. difficile Toxin A&B C. difficile Interpret Coronavirus OC43 (PCR) Coronavirus HKU1 (PCR) Coronavirus 229E (PCR) Coronavirus NL63 (PCR) Human Metapneumovir PCR Influenza A (RT-PCR) Influenza A (H1) PCR Influ A (H1/09) PCR Influenza A (H3) PCR Influenza B (RT-PCR) M. pneumoniae (PCR) Parainfluenza 1 (PCR) Parainfluenza 2 (PCR) Parainfluenza 3 (PCR) Parainfluenza 4 (PCR) RSV (PCR) Entero/Rhino (PCR) SARS-CoV-2 RNA (RT-PCR) Blood Type Antibody Screen Crossmatch 08/06/24 08/07/24 08/07/24 19:50 05:40 05:41 WBC 11.9 H RBC 2.64 L D Hgb 9.7 L D Hct 26.9 L D MCV 101.9 H MCH 36.7 H MCHC 36.1 H RDW 13.0 Plt Count 104 L MPV 11.4 Immature Gran % (Auto) 0.7 H Neut % (Auto) 74.0 H Lymph % (Auto) 10.1 L [place] % (Auto) 14.6 H Eos % (Auto) 0.3 Baso % (Auto) 0.3 Lymph # (Auto) 1.2 [place] # (Auto) 1.7 H Eos # (Auto) 0.0 Baso # (Auto) 0.0 Abs Immat Gran (auto) 0.08 H Absolute Neuts (auto) 8.8 H Absolute Nucleated RBC 0.000 Nucleated RBC % (auto) 0.0 Neutrophils % (Manual) Band Neutrophils % Lymphocytes % (Manual) Monocytes % (Manual) Abs Neuts (Manual) Lymphocytes # (Manual) Monocytes # (Manual) Toxic Granulation Toxic Vacuolation Dohle Bodies Platelet Estimate Large Platelets Plt Morphology Comment RBC Morphology Polychromasia Hypochromasia Macrocytosis Target Cells Ovalocytes Smear Tech's Comments VERIFIED Smear Path Review Hold Purple Top O2 Saturation ABG pH at Pt Temp ABG pCO2 at Pt Temp ABG pO2 at Pt Temp ABG HCO3 ABG Base Excess (Actual) VBG pH 7.49 H VBG pCO2 29 VBG pO2 58 VBG HCO3 22 VBG O2 Saturation 87.0 VBG Base Excess 0.2 Sodium 138 138 Potassium 2.2 L* 2.4 L* Chloride 100 101 Carbon Dioxide 22 20 L Anion Gap 18 19 BUN 11 8 L Creatinine 0.59 0.61 Estim Creat Clear Calc 141.6 149.9 Estimated GFR > 60 > 60 POC Glucose Random Glucose 96 91 Lactic Acid Lactic Acid F/U @ 2Hr Calcium 7.0 L D 7.6 L D Phosphorus 2.2 L 3.0 Magnesium 1.0 L* 1.5 L Total Bilirubin 1.3 H Direct Bilirubin AST 63 H ALT 27 Alkaline Phosphatase 64 Ammonia Troponin I High Sens C-Reactive Protein B-Natriuretic Peptide Total Protein 6.1 L Albumin 3.4 L 3.2 L Triglycerides Vitamin B12 Folate Procalcitonin Stool Occult Blood Random Vancomycin Urine Opiates Screen Ur Buprenorphine Scrn Ur Oxycodone Screen Urine Methadone Screen Urine Fentanyl Screen Ur Barbiturates Screen Ur Phencyclidine Scrn Ur Amphetamines Screen U Benzodiazepines Scrn Urine Cocaine Screen U Marijuana (THC) Screen Ethyl Alcohol Respiratory Panel Gtz Adenovirus (Rapid PCR) B.pert (TEM-PCR) B.parapertussis DNA PCR C. pneumoniae DNA (PCR) C. difficile Tox B Gene C. difficile Toxin A&B C. difficile Interpret Coronavirus OC43 (PCR) Coronavirus HKU1 (PCR) Coronavirus 229E (PCR) Coronavirus NL63 (PCR) Human Metapneumovir PCR Influenza A (RT-PCR) Influenza A (H1) PCR Influ A (H1/09) PCR Influenza A (H3) PCR Influenza B (RT-PCR) M. pneumoniae (PCR) Parainfluenza 1 (PCR) Parainfluenza 2 (PCR) Parainfluenza 3 (PCR) Parainfluenza 4 (PCR) RSV (PCR) Entero/Rhino (PCR) SARS-CoV-2 RNA (RT-PCR) Blood Type Antibody Screen Crossmatch 08/08/24 08/08/24 08/08/24 05:03 13:14 21:15 WBC 11.0 H RBC 2.27 L Hgb 8.5 L Hct 22.7 L MCV 100.0 H MCH 37.4 H MCHC 37.4 H RDW 13.1 Plt Count 111 L MPV 11.4 Immature Gran % (Auto) 0.6 H Neut % (Auto) 69.3 Lymph % (Auto) 13.5 L [place] % (Auto) 15.5 H Eos % (Auto) 0.7 Baso % (Auto) 0.4 Lymph # (Auto) 1.5 [place] # (Auto) 1.7 H Eos # (Auto) 0.1 Baso # (Auto) 0.0 Abs Immat Gran (auto) 0.07 H Absolute Neuts (auto) 7.6 Absolute Nucleated RBC 0.000 Nucleated RBC % (auto) 0.0 Neutrophils % (Manual) Band Neutrophils % Lymphocytes % (Manual) Monocytes % (Manual) Abs Neuts (Manual) Lymphocytes # (Manual) Monocytes # (Manual) Toxic Granulation Toxic Vacuolation Dohle Bodies Platelet Estimate Large Platelets Plt Morphology Comment RBC Morphology Polychromasia Hypochromasia Macrocytosis Target Cells Ovalocytes Smear Tech's Comments VERIFIED Smear Path Review Hold Purple Top O2 Saturation ABG pH at Pt Temp ABG pCO2 at Pt Temp ABG pO2 at Pt Temp ABG HCO3 ABG Base Excess (Actual) VBG pH VBG pCO2 VBG pO2 VBG HCO3 VBG O2 Saturation VBG Base Excess Sodium 140 139 141 Potassium 2.5 L* 2.6 L* 2.9 L* Chloride 102 105 105 Carbon Dioxide 19 L 17 L 19 L Anion Gap 22 H 20 20 BUN 7 L 8 L 9 Creatinine 0.63 0.66 0.68 Estim Creat Clear Calc 146.1 139.4 135.3 Estimated GFR > 60 > 60 > 60 POC Glucose Random Glucose 87 86 88 Lactic Acid Lactic Acid F/U @ 2Hr Calcium 7.5 L 7.6 L 7.6 L Phosphorus 2.4 L 3.0 Magnesium 0.9 L* 2.0 Total Bilirubin 1.4 H 1.4 H 1.3 H Direct Bilirubin AST 66 H 76 H 78 H ALT 25 22 26 Alkaline Phosphatase 67 58 165 H Ammonia Troponin I High Sens C-Reactive Protein B-Natriuretic Peptide Total Protein 5.9 L 6.0 L 6.0 L Albumin 3.4 L 3.5 3.4 L Triglycerides Vitamin B12 Folate Procalcitonin Stool Occult Blood Random Vancomycin Urine Opiates Screen Ur Buprenorphine Scrn Ur Oxycodone Screen Urine Methadone Screen Urine Fentanyl Screen Ur Barbiturates Screen Ur Phencyclidine Scrn Ur Amphetamines Screen U Benzodiazepines Scrn Urine Cocaine Screen U Marijuana (THC) Screen Ethyl Alcohol Respiratory Panel Gtz Adenovirus (Rapid PCR) B.pert (TEM-PCR) B.parapertussis DNA PCR C. pneumoniae DNA (PCR) C. difficile Tox B Gene C. difficile Toxin A&B C. difficile Interpret Coronavirus OC43 (PCR) Coronavirus HKU1 (PCR) Coronavirus 229E (PCR) Coronavirus NL63 (PCR) Human Metapneumovir PCR Influenza A (RT-PCR) Influenza A (H1) PCR Influ A (H1/09) PCR Influenza A (H3) PCR Influenza B (RT-PCR) M. pneumoniae (PCR) Parainfluenza 1 (PCR) Parainfluenza 2 (PCR) Parainfluenza 3 (PCR) Parainfluenza 4 (PCR) RSV (PCR) Entero/Rhino (PCR) SARS-CoV-2 RNA (RT-PCR) Blood Type Antibody Screen Crossmatch 08/09/24 08/09/24 08/09/24 04:44 16:24 20:05 WBC 8.9 RBC 2.23 L Hgb 8.2 L Hct 23.2 L MCV 104.0 H MCH 36.8 H MCHC 35.3 RDW 13.1 Plt Count 130 L MPV 11.6 Immature Gran % (Auto) 0.4 Neut % (Auto) 71.6 Lymph % (Auto) 9.2 L [place] % (Auto) 18.2 H Eos % (Auto) 0.3 Baso % (Auto) 0.3 Lymph # (Auto) 0.8 L [place] # (Auto) 1.6 H Eos # (Auto) 0.0 Baso # (Auto) 0.0 Abs Immat Gran (auto) 0.04 H Absolute Neuts (auto) 6.4 Absolute Nucleated RBC 0.000 Nucleated RBC % (auto) 0.0 Neutrophils % (Manual) Band Neutrophils % Lymphocytes % (Manual) Monocytes % (Manual) Abs Neuts (Manual) Lymphocytes # (Manual) Monocytes # (Manual) Toxic Granulation Toxic Vacuolation Dohle Bodies Platelet Estimate Large Platelets Plt Morphology Comment RBC Morphology Polychromasia Hypochromasia Macrocytosis Target Cells Ovalocytes Smear Tech's Comments VERIFIED Smear Path Review Hold Purple Top O2 Saturation ABG pH at Pt Temp ABG pCO2 at Pt Temp ABG pO2 at Pt Temp ABG HCO3 ABG Base Excess (Actual) VBG pH VBG pCO2 VBG pO2 VBG HCO3 VBG O2 Saturation VBG Base Excess Sodium 141 143 145 Potassium 2.9 L* 3.0 L 3.4 Chloride 106 108 112 H Carbon Dioxide 17 L 17 L 16 L Anion Gap 21 H 21 H 20 BUN 7 L 6 L 6 L Creatinine 0.68 0.75 0.73 Estim Creat Clear Calc 135.3 111.4 114.5 Estimated GFR > 60 > 60 > 60 POC Glucose Random Glucose 89 93 94 Lactic Acid Lactic Acid F/U @ 2Hr Calcium 7.4 L 7.6 L 7.3 L Phosphorus 2.4 L 3.2 Magnesium 1.4 L* 1.7 1.9 Total Bilirubin 1.3 H 1.1 H Direct Bilirubin AST 77 H 83 H ALT 21 24 Alkaline Phosphatase 71 91 Ammonia Troponin I High Sens C-Reactive Protein B-Natriuretic Peptide Total Protein 6.0 L 5.9 L Albumin 3.3 L 3.2 L Triglycerides Vitamin B12 Folate Procalcitonin Stool Occult Blood Random Vancomycin Urine Opiates Screen Ur Buprenorphine Scrn Ur Oxycodone Screen Urine Methadone Screen Urine Fentanyl Screen Ur Barbiturates Screen Ur Phencyclidine Scrn Ur Amphetamines Screen U Benzodiazepines Scrn Urine Cocaine Screen U Marijuana (THC) Screen Ethyl Alcohol Respiratory Panel Gtz Adenovirus (Rapid PCR) B.pert (TEM-PCR) B.parapertussis DNA PCR C. pneumoniae DNA (PCR) C. difficile Tox B Gene C. difficile Toxin A&B C. difficile Interpret Coronavirus OC43 (PCR) Coronavirus HKU1 (PCR) Coronavirus 229E (PCR) Coronavirus NL63 (PCR) Human Metapneumovir PCR Influenza A (RT-PCR) Influenza A (H1) PCR Influ A (H1/09) PCR Influenza A (H3) PCR Influenza B (RT-PCR) M. pneumoniae (PCR) Parainfluenza 1 (PCR) Parainfluenza 2 (PCR) Parainfluenza 3 (PCR) Parainfluenza 4 (PCR) RSV (PCR) Entero/Rhino (PCR) SARS-CoV-2 RNA (RT-PCR) Blood Type Antibody Screen Crossmatch 08/10/24 08/10/24 08/10/24 04:21 04:24 21:40 WBC 13.1 H 16.4 H RBC 2.40 L 2.67 L Hgb 8.7 L 9.6 L Hct 25.1 L 28.4 L MCV 104.6 H 106.4 H MCH 36.3 H 36.0 H MCHC 34.7 33.8 RDW 13.3 14.0 Plt Count 184 D 226 MPV 11.0 10.1 Immature Gran % (Auto) 0.6 H 0.9 H Neut % (Auto) 69.0 69.4 Lymph % (Auto) 8.1 L 6.8 L [place] % (Auto) 21.9 H 21.2 H Eos % (Auto) 0.1 1.2 Baso % (Auto) 0.3 0.5 Lymph # (Auto) 1.1 L 1.1 L [place] # (Auto) 2.9 H 3.5 H Eos # (Auto) 0.0 0.2 Baso # (Auto) 0.0 0.1 Abs Immat Gran (auto) 0.08 H 0.14 H Absolute Neuts (auto) 9.1 H 11.4 H Absolute Nucleated RBC 0.020 H 0.040 H Nucleated RBC % (auto) 0.2 0.2 Neutrophils % (Manual) Band Neutrophils % Lymphocytes % (Manual) Monocytes % (Manual) Abs Neuts (Manual) Lymphocytes # (Manual) Monocytes # (Manual) Toxic Granulation Toxic Vacuolation Dohle Bodies Platelet Estimate Large Platelets Plt Morphology Comment RBC Morphology Polychromasia Hypochromasia Macrocytosis Target Cells Ovalocytes Smear Tech's Comments VERIFIED VERIFIED Smear Path Review Hold Purple Top O2 Saturation ABG pH at Pt Temp ABG pCO2 at Pt Temp ABG pO2 at Pt Temp ABG HCO3 ABG Base Excess (Actual) VBG pH 7.54 H VBG pCO2 24 VBG pO2 63 VBG HCO3 21 L VBG O2 Saturation 92.0 VBG Base Excess 0.2 Sodium 145 146 H Potassium 2.6 L* D 2.7 L* Chloride 109 H 110 H Carbon Dioxide 19 L 20 L Anion Gap 20 19 BUN 5 L 7 L Creatinine 0.69 0.64 Estim Creat Clear Calc 121.1 130.6 Estimated GFR > 60 > 60 POC Glucose Random Glucose 92 123 H Lactic Acid 1.9 Lactic Acid F/U @ 2Hr Calcium 7.7 L 7.6 L Phosphorus 2.3 L 2.0 L Magnesium 1.5 L 1.7 Total Bilirubin 1.4 H 1.6 H Direct Bilirubin AST 96 H 119 H ALT 31 43 H Alkaline Phosphatase 102 112 Ammonia Troponin I High Sens C-Reactive Protein 37.08 H B-Natriuretic Peptide 177 H Total Protein 6.4 L 6.6 Albumin 3.4 L 3.5 Triglycerides Vitamin B12 Folate Procalcitonin 0.53 Stool Occult Blood Random Vancomycin Urine Opiates Screen Ur Buprenorphine Scrn Ur Oxycodone Screen Urine Methadone Screen Urine Fentanyl Screen Ur Barbiturates Screen Ur Phencyclidine Scrn Ur Amphetamines Screen U Benzodiazepines Scrn Urine Cocaine Screen U Marijuana (THC) Screen Ethyl Alcohol Respiratory Panel Gtz Adenovirus (Rapid PCR) B.pert (TEM-PCR) B.parapertussis DNA PCR C. pneumoniae DNA (PCR) C. difficile Tox B Gene C. difficile Toxin A&B C. difficile Interpret Coronavirus OC43 (PCR) Coronavirus HKU1 (PCR) Coronavirus 229E (PCR) Coronavirus NL63 (PCR) Human Metapneumovir PCR Influenza A (RT-PCR) Influenza A (H1) PCR Influ A (H1/09) PCR Influenza A (H3) PCR Influenza B (RT-PCR) M. pneumoniae (PCR) Parainfluenza 1 (PCR) Parainfluenza 2 (PCR) Parainfluenza 3 (PCR) Parainfluenza 4 (PCR) RSV (PCR) Entero/Rhino (PCR) SARS-CoV-2 RNA (RT-PCR) Blood Type Antibody Screen Crossmatch 08/10/24 08/11/24 08/11/24 21:52 04:40 04:52 WBC 16.5 H RBC 2.53 L Hgb 9.2 L Hct 26.0 L MCV 102.8 H MCH 36.4 H MCHC 35.4 RDW 13.7 Plt Count 228 MPV 10.0 Immature Gran % (Auto) 0.8 H Neut % (Auto) 70.1 Lymph % (Auto) 6.7 L [place] % (Auto) 20.7 H Eos % (Auto) 1.3 Baso % (Auto) 0.4 Lymph # (Auto) 1.1 L [place] # (Auto) 3.4 H Eos # (Auto) 0.2 Baso # (Auto) 0.1 Abs Immat Gran (auto) 0.14 H Absolute Neuts (auto) 11.6 H Absolute Nucleated RBC 0.060 H Nucleated RBC % (auto) 0.4 H Neutrophils % (Manual) Band Neutrophils % Lymphocytes % (Manual) Monocytes % (Manual) Abs Neuts (Manual) Lymphocytes # (Manual) Monocytes # (Manual) Toxic Granulation Toxic Vacuolation Dohle Bodies Platelet Estimate Large Platelets Plt Morphology Comment RBC Morphology Polychromasia Hypochromasia Macrocytosis Target Cells Ovalocytes Smear Tech's Comments Smear Path Review Hold Purple Top O2 Saturation ABG pH at Pt Temp ABG pCO2 at Pt Temp ABG pO2 at Pt Temp ABG HCO3 ABG Base Excess (Actual) VBG pH 7.55 H VBG pCO2 26 VBG pO2 39 VBG HCO3 23 VBG O2 Saturation 66.0 VBG Base Excess 2.0 Sodium 145 Potassium 3.1 L Chloride 112 H Carbon Dioxide 20 L Anion Gap 16 BUN 6 L Creatinine 0.69 Estim Creat Clear Calc 121.1 Estimated GFR > 60 POC Glucose Random Glucose 126 H Lactic Acid Lactic Acid F/U @ 2Hr Calcium 7.4 L Phosphorus 2.6 L Magnesium 1.8 Total Bilirubin 1.5 H Direct Bilirubin AST 89 H ALT 38 Alkaline Phosphatase 103 Ammonia Troponin I High Sens C-Reactive Protein B-Natriuretic Peptide Total Protein 6.3 L Albumin 3.3 L Triglycerides Vitamin B12 Folate Procalcitonin Stool Occult Blood Random Vancomycin Urine Opiates Screen Ur Buprenorphine Scrn Ur Oxycodone Screen Urine Methadone Screen Urine Fentanyl Screen Ur Barbiturates Screen Ur Phencyclidine Scrn Ur Amphetamines Screen U Benzodiazepines Scrn Urine Cocaine Screen U Marijuana (THC) Screen Ethyl Alcohol Respiratory Panel Gtz Adenovirus (Rapid PCR) B.pert (TEM-PCR) B.parapertussis DNA PCR C. pneumoniae DNA (PCR) C. difficile Tox B Gene C. difficile Toxin A&B C. difficile Interpret Coronavirus OC43 (PCR) Coronavirus HKU1 (PCR) Coronavirus 229E (PCR) Coronavirus NL63 (PCR) Human Metapneumovir PCR Influenza A (RT-PCR) Influenza A (H1) PCR Influ A (H1/09) PCR Influenza A (H3) PCR Influenza B (RT-PCR) M. pneumoniae (PCR) Parainfluenza 1 (PCR) Parainfluenza 2 (PCR) Parainfluenza 3 (PCR) Parainfluenza 4 (PCR) RSV (PCR) Entero/Rhino (PCR) SARS-CoV-2 RNA (RT-PCR) Blood Type Antibody Screen Crossmatch 08/11/24 08/12/24 08/12/24 15:51 04:40 20:50 WBC 19.4 H RBC 2.57 L Hgb 9.3 L Hct 27.2 L MCV 105.8 H MCH 36.2 H MCHC 34.2 RDW 14.4 Plt Count 291 D MPV 10.3 Immature Gran % (Auto) 0.9 H Neut % (Auto) 77.1 H Lymph % (Auto) 6.1 L [place] % (Auto) 15.6 H Eos % (Auto) 0.0 Baso % (Auto) 0.3 Lymph # (Auto) 1.2 [place] # (Auto) 3.0 H Eos # (Auto) 0.0 Baso # (Auto) 0.1 Abs Immat Gran (auto) 0.18 H Absolute Neuts (auto) 15.0 H Absolute Nucleated RBC 0.040 H Nucleated RBC % (auto) 0.2 Neutrophils % (Manual) Band Neutrophils % Lymphocytes % (Manual) Monocytes % (Manual) Abs Neuts (Manual) Lymphocytes # (Manual) Monocytes # (Manual) Toxic Granulation Toxic Vacuolation Dohle Bodies Platelet Estimate Large Platelets Plt Morphology Comment RBC Morphology Polychromasia Hypochromasia Macrocytosis Target Cells Ovalocytes Smear Tech's Comments VERIFIED Smear Path Review Hold Purple Top O2 Saturation ABG pH at Pt Temp ABG pCO2 at Pt Temp ABG pO2 at Pt Temp ABG HCO3 ABG Base Excess (Actual) VBG pH VBG pCO2 VBG pO2 VBG HCO3 VBG O2 Saturation VBG Base Excess Sodium 147 H 148 H 148 H Potassium 3.5 3.6 2.9 L* Chloride 113 H 114 H 115 H Carbon Dioxide 22 23 23 Anion Gap 16 15 13 BUN 9 12 13 Creatinine 0.66 0.72 0.62 Estim Creat Clear Calc 126.6 116.1 134.8 Estimated GFR > 60 > 60 > 60 POC Glucose Random Glucose 112 137 H 134 H Lactic Acid Lactic Acid F/U @ 2Hr Calcium 7.5 L 8.1 L D 8.2 L Phosphorus 2.4 L 2.2 L 2.1 L Magnesium 2.5 2.2 1.8 Total Bilirubin 1.4 H 1.4 H 1.3 H Direct Bilirubin AST 70 H 63 H 46 H ALT 28 28 17 Alkaline Phosphatase 95 106 92 Ammonia Troponin I High Sens C-Reactive Protein B-Natriuretic Peptide Total Protein 6.2 L 6.7 6.0 L Albumin 3.1 L 3.3 L 3.0 L Triglycerides Vitamin B12 Folate Procalcitonin Stool Occult Blood Random Vancomycin Urine Opiates Screen Ur Buprenorphine Scrn Ur Oxycodone Screen Urine Methadone Screen Urine Fentanyl Screen Ur Barbiturates Screen Ur Phencyclidine Scrn Ur Amphetamines Screen U Benzodiazepines Scrn Urine Cocaine Screen U Marijuana (THC) Screen Ethyl Alcohol Respiratory Panel Gtz Adenovirus (Rapid PCR) B.pert (TEM-PCR) B.parapertussis DNA PCR C. pneumoniae DNA (PCR) C. difficile Tox B Gene C. difficile Toxin A&B C. difficile Interpret Coronavirus OC43 (PCR) Coronavirus HKU1 (PCR) Coronavirus 229E (PCR) Coronavirus NL63 (PCR) Human Metapneumovir PCR Influenza A (RT-PCR) Influenza A (H1) PCR Influ A (H1/09) PCR Influenza A (H3) PCR Influenza B (RT-PCR) M. pneumoniae (PCR) Parainfluenza 1 (PCR) Parainfluenza 2 (PCR) Parainfluenza 3 (PCR) Parainfluenza 4 (PCR) RSV (PCR) Entero/Rhino (PCR) SARS-CoV-2 RNA (RT-PCR) Blood Type Antibody Screen Crossmatch 08/13/24 08/13/24 08/13/24 05:18 05:18 05:18 WBC 22.0 H RBC 2.22 L Hgb 8.0 L Hct 23.3 L MCV 105.0 H MCH 36.0 H MCHC 34.3 RDW 14.5 Plt Count 319 MPV 10.7 Immature Gran % (Auto) Cancelled Neut % (Auto) Cancelled Lymph % (Auto) Cancelled [place] % (Auto) Cancelled Eos % (Auto) Cancelled Baso % (Auto) Cancelled Lymph # (Auto) Cancelled [place] # (Auto) Cancelled Eos # (Auto) Cancelled Baso # (Auto) Cancelled Abs Immat Gran (auto) Cancelled Absolute Neuts (auto) Cancelled Absolute Nucleated RBC 0.070 H Nucleated RBC % (auto) 0.3 H Neutrophils % (Manual) 59 Band Neutrophils % 21 H Lymphocytes % (Manual) 7 L Monocytes % (Manual) 13 H Abs Neuts (Manual) 17.6 H Lymphocytes # (Manual) 1.5 Monocytes # (Manual) 2.9 H Toxic Granulation PRESENT Toxic Vacuolation PRESENT Dohle Bodies PRESENT Platelet Estimate NORMAL Large Platelets Plt Morphology Comment NORMAL RBC Morphology NOTED Polychromasia 1+ (0-2) Hypochromasia 1+ (5-14) Macrocytosis 1+ (5-14) Target Cells 1+ (5-14) Ovalocytes 1+ (5-14) Smear Tech's Comments Smear Path Review Hold Purple Top O2 Saturation ABG pH at Pt Temp ABG pCO2 at Pt Temp ABG pO2 at Pt Temp ABG HCO3 ABG Base Excess (Actual) VBG pH VBG pCO2 VBG pO2 VBG HCO3 VBG O2 Saturation VBG Base Excess Sodium Cancelled 147 H Potassium Cancelled 3.6 D Chloride Cancelled Carbon Dioxide Anion Gap BUN Creatinine Estim Creat Clear Calc Estimated GFR POC Glucose Random Glucose Lactic Acid Lactic Acid F/U @ 2Hr Calcium Phosphorus Magnesium Total Bilirubin Direct Bilirubin AST ALT Alkaline Phosphatase Ammonia Troponin I High Sens C-Reactive Protein B-Natriuretic Peptide Total Protein Albumin Triglycerides Vitamin B12 Folate Procalcitonin Stool Occult Blood Random Vancomycin Urine Opiates Screen Ur Buprenorphine Scrn Ur Oxycodone Screen Urine Methadone Screen Urine Fentanyl Screen Ur Barbiturates Screen Ur Phencyclidine Scrn Ur Amphetamines Screen U Benzodiazepines Scrn Urine Cocaine Screen U Marijuana (THC) Screen Ethyl Alcohol Respiratory Panel Gtz Adenovirus (Rapid PCR) B.pert (TEM-PCR) B.parapertussis DNA PCR C. pneumoniae DNA (PCR) C. difficile Tox B Gene C. difficile Toxin A&B C. difficile Interpret Coronavirus OC43 (PCR) Coronavirus HKU1 (PCR) Coronavirus 229E (PCR) Coronavirus NL63 (PCR) Human Metapneumovir PCR Influenza A (RT-PCR) Influenza A (H1) PCR Influ A (H1/09) PCR Influenza A (H3) PCR Influenza B (RT-PCR) M. pneumoniae (PCR) Parainfluenza 1 (PCR) Parainfluenza 2 (PCR) Parainfluenza 3 (PCR) Parainfluenza 4 (PCR) RSV (PCR) Entero/Rhino (PCR) SARS-CoV-2 RNA (RT-PCR) Blood Type Antibody Screen Crossmatch 08/13/24 08/13/24 08/13/24 05:18 05:18 05:18 WBC RBC Hgb Hct MCV MCH MCHC RDW Plt Count MPV Immature Gran % (Auto) Neut % (Auto) Lymph % (Auto) [place] % (Auto) Eos % (Auto) Baso % (Auto) Lymph # (Auto) [place] # (Auto) Eos # (Auto) Baso # (Auto) Abs Immat Gran (auto) Absolute Neuts (auto) Absolute Nucleated RBC Nucleated RBC % (auto) Neutrophils % (Manual) Band Neutrophils % Lymphocytes % (Manual) Monocytes % (Manual) Abs Neuts (Manual) Lymphocytes # (Manual) Monocytes # (Manual) Toxic Granulation Toxic Vacuolation Dohle Bodies Platelet Estimate Large Platelets Plt Morphology Comment RBC Morphology Polychromasia Hypochromasia Macrocytosis Target Cells Ovalocytes Smear Tech's Comments Smear Path Review Hold Purple Top O2 Saturation ABG pH at Pt Temp ABG pCO2 at Pt Temp ABG pO2 at Pt Temp ABG HCO3 ABG Base Excess (Actual) VBG pH VBG pCO2 VBG pO2 VBG HCO3 VBG O2 Saturation VBG Base Excess Sodium Potassium Chloride 115 H Carbon Dioxide Cancelled 21 L Anion Gap Cancelled 15 BUN Cancelled Creatinine Estim Creat Clear Calc Estimated GFR POC Glucose Random Glucose Lactic Acid Lactic Acid F/U @ 2Hr Calcium Phosphorus Magnesium Total Bilirubin Direct Bilirubin AST ALT Alkaline Phosphatase Ammonia Troponin I High Sens C-Reactive Protein B-Natriuretic Peptide Total Protein Albumin Triglycerides Vitamin B12 Folate Procalcitonin Stool Occult Blood Random Vancomycin Urine Opiates Screen Ur Buprenorphine Scrn Ur Oxycodone Screen Urine Methadone Screen Urine Fentanyl Screen Ur Barbiturates Screen Ur Phencyclidine Scrn Ur Amphetamines Screen U Benzodiazepines Scrn Urine Cocaine Screen U Marijuana (THC) Screen Ethyl Alcohol Respiratory Panel Gtz Adenovirus (Rapid PCR) B.pert (TEM-PCR) B.parapertussis DNA PCR C. pneumoniae DNA (PCR) C. difficile Tox B Gene C. difficile Toxin A&B C. difficile Interpret Coronavirus OC43 (PCR) Coronavirus HKU1 (PCR) Coronavirus 229E (PCR) Coronavirus NL63 (PCR) Human Metapneumovir PCR Influenza A (RT-PCR) Influenza A (H1) PCR Influ A (H1/09) PCR Influenza A (H3) PCR Influenza B (RT-PCR) M. pneumoniae (PCR) Parainfluenza 1 (PCR) Parainfluenza 2 (PCR) Parainfluenza 3 (PCR) Parainfluenza 4 (PCR) RSV (PCR) Entero/Rhino (PCR) SARS-CoV-2 RNA (RT-PCR) Blood Type Antibody Screen Crossmatch 08/13/24 08/13/24 08/13/24 05:18 05:18 05:18 WBC RBC Hgb Hct MCV MCH MCHC RDW Plt Count MPV Immature Gran % (Auto) Neut % (Auto) Lymph % (Auto) [place] % (Auto) Eos % (Auto) Baso % (Auto) Lymph # (Auto) [place] # (Auto) Eos # (Auto) Baso # (Auto) Abs Immat Gran (auto) Absolute Neuts (auto) Absolute Nucleated RBC Nucleated RBC % (auto) Neutrophils % (Manual) Band Neutrophils % Lymphocytes % (Manual) Monocytes % (Manual) Abs Neuts (Manual) Lymphocytes # (Manual) Monocytes # (Manual) Toxic Granulation Toxic Vacuolation Dohle Bodies Platelet Estimate Large Platelets Plt Morphology Comment RBC Morphology Polychromasia Hypochromasia Macrocytosis Target Cells Ovalocytes Smear Tech's Comments Smear Path Review Hold Purple Top O2 Saturation ABG pH at Pt Temp ABG pCO2 at Pt Temp ABG pO2 at Pt Temp ABG HCO3 ABG Base Excess (Actual) VBG pH VBG pCO2 VBG pO2 VBG HCO3 VBG O2 Saturation VBG Base Excess Sodium Potassium Chloride Carbon Dioxide Anion Gap BUN 12 Creatinine Cancelled 0.64 Estim Creat Clear Calc Cancelled 130.6 Estimated GFR Cancelled POC Glucose Random Glucose Lactic Acid Lactic Acid F/U @ 2Hr Calcium Phosphorus Magnesium Total Bilirubin Direct Bilirubin AST ALT Alkaline Phosphatase Ammonia Troponin I High Sens C-Reactive Protein B-Natriuretic Peptide Total Protein Albumin Triglycerides Vitamin B12 Folate Procalcitonin Stool Occult Blood Random Vancomycin Urine Opiates Screen Ur Buprenorphine Scrn Ur Oxycodone Screen Urine Methadone Screen Urine Fentanyl Screen Ur Barbiturates Screen Ur Phencyclidine Scrn Ur Amphetamines Screen U Benzodiazepines Scrn Urine Cocaine Screen U Marijuana (THC) Screen Ethyl Alcohol Respiratory Panel Gtz Adenovirus (Rapid PCR) B.pert (TEM-PCR) B.parapertussis DNA PCR C. pneumoniae DNA (PCR) C. difficile Tox B Gene C. difficile Toxin A&B C. difficile Interpret Coronavirus OC43 (PCR) Coronavirus HKU1 (PCR) Coronavirus 229E (PCR) Coronavirus NL63 (PCR) Human Metapneumovir PCR Influenza A (RT-PCR) Influenza A (H1) PCR Influ A (H1/09) PCR Influenza A (H3) PCR Influenza B (RT-PCR) M. pneumoniae (PCR) Parainfluenza 1 (PCR) Parainfluenza 2 (PCR) Parainfluenza 3 (PCR) Parainfluenza 4 (PCR) RSV (PCR) Entero/Rhino (PCR) SARS-CoV-2 RNA (RT-PCR) Blood Type Antibody Screen Crossmatch 08/13/24 08/13/24 08/13/24 05:18 05:18 05:18 WBC RBC Hgb Hct MCV MCH MCHC RDW Plt Count MPV Immature Gran % (Auto) Neut % (Auto) Lymph % (Auto) [place] % (Auto) Eos % (Auto) Baso % (Auto) Lymph # (Auto) [place] # (Auto) Eos # (Auto) Baso # (Auto) Abs Immat Gran (auto) Absolute Neuts (auto) Absolute Nucleated RBC Nucleated RBC % (auto) Neutrophils % (Manual) Band Neutrophils % Lymphocytes % (Manual) Monocytes % (Manual) Abs Neuts (Manual) Lymphocytes # (Manual) Monocytes # (Manual) Toxic Granulation Toxic Vacuolation Dohle Bodies Platelet Estimate Large Platelets Plt Morphology Comment RBC Morphology Polychromasia Hypochromasia Macrocytosis Target Cells Ovalocytes Smear Tech's Comments Smear Path Review Hold Purple Top O2 Saturation ABG pH at Pt Temp ABG pCO2 at Pt Temp ABG pO2 at Pt Temp ABG HCO3 ABG Base Excess (Actual) VBG pH VBG pCO2 VBG pO2 VBG HCO3 VBG O2 Saturation VBG Base Excess Sodium Potassium Chloride Carbon Dioxide Anion Gap BUN Creatinine Estim Creat Clear Calc Estimated GFR > 60 POC Glucose Random Glucose Cancelled 130 H Lactic Acid Lactic Acid F/U @ 2Hr Calcium Cancelled 8.1 L Phosphorus Cancelled Magnesium Total Bilirubin Direct Bilirubin AST ALT Alkaline Phosphatase Ammonia Troponin I High Sens C-Reactive Protein B-Natriuretic Peptide Total Protein Albumin Triglycerides Vitamin B12 Folate Procalcitonin Stool Occult Blood Random Vancomycin Urine Opiates Screen Ur Buprenorphine Scrn Ur Oxycodone Screen Urine Methadone Screen Urine Fentanyl Screen Ur Barbiturates Screen Ur Phencyclidine Scrn Ur Amphetamines Screen U Benzodiazepines Scrn Urine Cocaine Screen U Marijuana (THC) Screen Ethyl Alcohol Respiratory Panel Gtz Adenovirus (Rapid PCR) B.pert (TEM-PCR) B.parapertussis DNA PCR C. pneumoniae DNA (PCR) C. difficile Tox B Gene C. difficile Toxin A&B C. difficile Interpret Coronavirus OC43 (PCR) Coronavirus HKU1 (PCR) Coronavirus 229E (PCR) Coronavirus NL63 (PCR) Human Metapneumovir PCR Influenza A (RT-PCR) Influenza A (H1) PCR Influ A (H1/09) PCR Influenza A (H3) PCR Influenza B (RT-PCR) M. pneumoniae (PCR) Parainfluenza 1 (PCR) Parainfluenza 2 (PCR) Parainfluenza 3 (PCR) Parainfluenza 4 (PCR) RSV (PCR) Entero/Rhino (PCR) SARS-CoV-2 RNA (RT-PCR) Blood Type Antibody Screen Crossmatch 08/13/24 08/13/24 08/13/24 05:18 05:18 07:29 WBC RBC Hgb Hct MCV MCH MCHC RDW Plt Count MPV Immature Gran % (Auto) Neut % (Auto) Lymph % (Auto) [place] % (Auto) Eos % (Auto) Baso % (Auto) Lymph # (Auto) [place] # (Auto) Eos # (Auto) Baso # (Auto) Abs Immat Gran (auto) Absolute Neuts (auto) Absolute Nucleated RBC Nucleated RBC % (auto) Neutrophils % (Manual) Band Neutrophils % Lymphocytes % (Manual) Monocytes % (Manual) Abs Neuts (Manual) Lymphocytes # (Manual) Monocytes # (Manual) Toxic Granulation Toxic Vacuolation Dohle Bodies Platelet Estimate Large Platelets Plt Morphology Comment RBC Morphology Polychromasia Hypochromasia Macrocytosis Target Cells Ovalocytes Smear Tech's Comments Smear Path Review Hold Purple Top O2 Saturation 92.0 ABG pH at Pt Temp 7.57 H ABG pCO2 at Pt Temp 28 L ABG pO2 at Pt Temp 67 L ABG HCO3 25 ABG Base Excess (Actual) 4.2 VBG pH VBG pCO2 VBG pO2 VBG HCO3 VBG O2 Saturation VBG Base Excess Sodium Potassium Chloride Carbon Dioxide Anion Gap BUN Creatinine Estim Creat Clear Calc Estimated GFR POC Glucose Random Glucose Lactic Acid Lactic Acid F/U @ 2Hr Calcium Phosphorus 4.1 Magnesium Cancelled 2.0 Total Bilirubin 1.0 Direct Bilirubin AST 58 H ALT 19 Alkaline Phosphatase 111 Ammonia Troponin I High Sens C-Reactive Protein B-Natriuretic Peptide Total Protein 6.4 L Albumin 3.1 L Triglycerides Vitamin B12 Folate Procalcitonin Stool Occult Blood Random Vancomycin Urine Opiates Screen Ur Buprenorphine Scrn Ur Oxycodone Screen Urine Methadone Screen Urine Fentanyl Screen Ur Barbiturates Screen Ur Phencyclidine Scrn Ur Amphetamines Screen U Benzodiazepines Scrn Urine Cocaine Screen U Marijuana (THC) Screen Ethyl Alcohol Respiratory Panel Gtz Adenovirus (Rapid PCR) B.pert (TEM-PCR) B.parapertussis DNA PCR C. pneumoniae DNA (PCR) C. difficile Tox B Gene C. difficile Toxin A&B C. difficile Interpret Coronavirus OC43 (PCR) Coronavirus HKU1 (PCR) Coronavirus 229E (PCR) Coronavirus NL63 (PCR) Human Metapneumovir PCR Influenza A (RT-PCR) Influenza A (H1) PCR Influ A (H1/09) PCR Influenza A (H3) PCR Influenza B (RT-PCR) M. pneumoniae (PCR) Parainfluenza 1 (PCR) Parainfluenza 2 (PCR) Parainfluenza 3 (PCR) Parainfluenza 4 (PCR) RSV (PCR) Entero/Rhino (PCR) SARS-CoV-2 RNA (RT-PCR) Blood Type Antibody Screen Crossmatch 08/13/24 08/14/24 08/14/24 12:38 04:25 06:30 WBC 16.1 H RBC 1.98 L Hgb 7.0 L* 7.0 L* Hct 21.0 L* 20.3 L* MCV 106.1 H MCH 35.4 H MCHC 33.3 RDW 15.2 Plt Count 233 D MPV 11.2 Immature Gran % (Auto) Cancelled Neut % (Auto) Cancelled Lymph % (Auto) Cancelled [place] % (Auto) Cancelled Eos % (Auto) Cancelled Baso % (Auto) Cancelled Lymph # (Auto) Cancelled [place] # (Auto) Cancelled Eos # (Auto) Cancelled Baso # (Auto) Cancelled Abs Immat Gran (auto) Cancelled Absolute Neuts (auto) Cancelled Absolute Nucleated RBC 0.080 H Nucleated RBC % (auto) 0.5 H Neutrophils % (Manual) 69 Band Neutrophils % 16 H Lymphocytes % (Manual) 9 L Monocytes % (Manual) 6 Abs Neuts (Manual) 13.7 H Lymphocytes # (Manual) 1.4 Monocytes # (Manual) 1.0 Toxic Granulation PRESENT Toxic Vacuolation PRESENT Dohle Bodies Platelet Estimate NORMAL Large Platelets PRESENT Plt Morphology Comment NOTED RBC Morphology NOTED Polychromasia Hypochromasia Macrocytosis 2+ (15-30) Target Cells Ovalocytes 1+ (5-14) Smear Tech's Comments Smear Path Review SEE NOTE Hold Purple Top O2 Saturation ABG pH at Pt Temp ABG pCO2 at Pt Temp ABG pO2 at Pt Temp ABG HCO3 ABG Base Excess (Actual) VBG pH VBG pCO2 VBG pO2 VBG HCO3 VBG O2 Saturation VBG Base Excess Sodium 148 H Potassium 3.2 L Chloride 113 H Carbon Dioxide 22 Anion Gap 16 BUN 18 H Creatinine 0.78 Estim Creat Clear Calc 107.1 Estimated GFR > 60 POC Glucose Random Glucose 106 Lactic Acid Lactic Acid F/U @ 2Hr Calcium 7.9 L Phosphorus 4.4 Magnesium 1.8 Total Bilirubin Direct Bilirubin AST ALT Alkaline Phosphatase Ammonia 29 Troponin I High Sens C-Reactive Protein B-Natriuretic Peptide Total Protein Albumin Triglycerides 118 Vitamin B12 Folate Procalcitonin Stool Occult Blood Random Vancomycin Urine Opiates Screen Ur Buprenorphine Scrn Ur Oxycodone Screen Urine Methadone Screen Urine Fentanyl Screen Ur Barbiturates Screen Ur Phencyclidine Scrn Ur Amphetamines Screen U Benzodiazepines Scrn Urine Cocaine Screen U Marijuana (THC) Screen Ethyl Alcohol Respiratory Panel Gtz Adenovirus (Rapid PCR) B.pert (TEM-PCR) B.parapertussis DNA PCR C. pneumoniae DNA (PCR) C. difficile Tox B Gene C. difficile Toxin A&B C. difficile Interpret Coronavirus OC43 (PCR) Coronavirus HKU1 (PCR) Coronavirus 229E (PCR) Coronavirus NL63 (PCR) Human Metapneumovir PCR Influenza A (RT-PCR) Influenza A (H1) PCR Influ A (H1/09) PCR Influenza A (H3) PCR Influenza B (RT-PCR) M. pneumoniae (PCR) Parainfluenza 1 (PCR) Parainfluenza 2 (PCR) Parainfluenza 3 (PCR) Parainfluenza 4 (PCR) RSV (PCR) Entero/Rhino (PCR) SARS-CoV-2 RNA (RT-PCR) Blood Type A Positive Antibody Screen NEGATIVE Crossmatch See Detail 08/14/24 08/15/24 08/16/24 20:30 07:17 09:10 WBC 16.8 H RBC 2.83 L D Hgb 9.7 L D Hct 28.3 L D MCV 100.0 H D MCH 34.3 H MCHC 34.3 RDW 19.0 H Plt Count 365 D MPV 11.0 Immature Gran % (Auto) Neut % (Auto) Lymph % (Auto) [place] % (Auto) Eos % (Auto) Baso % (Auto) Lymph # (Auto) [place] # (Auto) Eos # (Auto) Baso # (Auto) Abs Immat Gran (auto) Absolute Neuts (auto) Absolute Nucleated RBC 0.050 H Nucleated RBC % (auto) 0.3 H Neutrophils % (Manual) Band Neutrophils % Lymphocytes % (Manual) Monocytes % (Manual) Abs Neuts (Manual) Lymphocytes # (Manual) Monocytes # (Manual) Toxic Granulation Toxic Vacuolation Dohle Bodies Platelet Estimate Large Platelets Plt Morphology Comment RBC Morphology Polychromasia Hypochromasia Macrocytosis Target Cells Ovalocytes Smear Tech's Comments Smear Path Review Hold Purple Top SEE NOTE O2 Saturation ABG pH at Pt Temp ABG pCO2 at Pt Temp ABG pO2 at Pt Temp ABG HCO3 ABG Base Excess (Actual) VBG pH VBG pCO2 VBG pO2 VBG HCO3 VBG O2 Saturation VBG Base Excess Sodium 147 H 152 H Potassium 2.9 L* 2.7 L* Chloride 112 H 119 H Carbon Dioxide 22 22 Anion Gap 16 14 BUN 14 18 H Creatinine 0.71 0.73 Estim Creat Clear Calc 110.3 101.6 Estimated GFR > 60 > 60 POC Glucose Random Glucose 95 102 Lactic Acid Lactic Acid F/U @ 2Hr Calcium 8.3 L 8.6 Phosphorus 3.8 3.1 Magnesium 1.3 L* 1.5 L Total Bilirubin Direct Bilirubin AST ALT Alkaline Phosphatase Ammonia Troponin I High Sens C-Reactive Protein B-Natriuretic Peptide Total Protein Albumin Triglycerides Vitamin B12 Folate Procalcitonin Stool Occult Blood Random Vancomycin Urine Opiates Screen Ur Buprenorphine Scrn Ur Oxycodone Screen Urine Methadone Screen Urine Fentanyl Screen Ur Barbiturates Screen Ur Phencyclidine Scrn Ur Amphetamines Screen U Benzodiazepines Scrn Urine Cocaine Screen U Marijuana (THC) Screen Ethyl Alcohol Respiratory Panel Gtz See Note Adenovirus (Rapid PCR) Not Detected B.pert (TEM-PCR) Not Detected B.parapertussis DNA PCR Not Detected C. pneumoniae DNA (PCR) Not Detected C. difficile Tox B Gene C. difficile Toxin A&B C. difficile Interpret Coronavirus OC43 (PCR) Not Detected Coronavirus HKU1 (PCR) Not Detected Coronavirus 229E (PCR) Not Detected Coronavirus NL63 (PCR) Not Detected Human Metapneumovir PCR Not Detected Influenza A (RT-PCR) Not Detected Influenza A (H1) PCR Not Detected Influ A (H1/09) PCR Not Detected Influenza A (H3) PCR Not Detected Influenza B (RT-PCR) Not Detected M. pneumoniae (PCR) Not Detected Parainfluenza 1 (PCR) Not Detected Parainfluenza 2 (PCR) Not Detected Parainfluenza 3 (PCR) Not Detected Parainfluenza 4 (PCR) Not Detected RSV (PCR) Not Detected Entero/Rhino (PCR) Not Detected SARS-CoV-2 RNA (RT-PCR) Not Detected Blood Type Antibody Screen Crossmatch 08/16/24 08/17/24 08/17/24 12:55 06:20 07:39 WBC 16.4 H RBC 2.49 L Hgb 8.7 L Hct 25.1 L MCV 100.8 H MCH 34.9 H MCHC 34.7 RDW 18.6 H Plt Count 345 MPV 11.3 Immature Gran % (Auto) Neut % (Auto) Lymph % (Auto) [place] % (Auto) Eos % (Auto) Baso % (Auto) Lymph # (Auto) [place] # (Auto) Eos # (Auto) Baso # (Auto) Abs Immat Gran (auto) Absolute Neuts (auto) Absolute Nucleated RBC 0.050 H Nucleated RBC % (auto) 0.3 H Neutrophils % (Manual) Band Neutrophils % Lymphocytes % (Manual) Monocytes % (Manual) Abs Neuts (Manual) Lymphocytes # (Manual) Monocytes # (Manual) Toxic Granulation Toxic Vacuolation Dohle Bodies Platelet Estimate Large Platelets Plt Morphology Comment RBC Morphology Polychromasia Hypochromasia Macrocytosis Target Cells Ovalocytes Smear Tech's Comments Smear Path Review Hold Purple Top O2 Saturation ABG pH at Pt Temp ABG pCO2 at Pt Temp ABG pO2 at Pt Temp ABG HCO3 ABG Base Excess (Actual) VBG pH VBG pCO2 VBG pO2 VBG HCO3 VBG O2 Saturation VBG Base Excess Sodium 150 H Potassium 2.6 L* Chloride 119 H Carbon Dioxide 22 Anion Gap 12 BUN 15 Creatinine 0.74 Estim Creat Clear Calc 100.2 Estimated GFR > 60 POC Glucose Random Glucose 113 Lactic Acid Lactic Acid F/U @ 2Hr Calcium 8.3 L Phosphorus 2.7 Magnesium 1.5 L Total Bilirubin Direct Bilirubin AST ALT Alkaline Phosphatase Ammonia Troponin I High Sens C-Reactive Protein B-Natriuretic Peptide Total Protein Albumin Triglycerides Vitamin B12 Folate Procalcitonin Stool Occult Blood NEGATIVE Random Vancomycin 10.5 L Urine Opiates Screen Ur Buprenorphine Scrn Ur Oxycodone Screen Urine Methadone Screen Urine Fentanyl Screen Ur Barbiturates Screen Ur Phencyclidine Scrn Ur Amphetamines Screen U Benzodiazepines Scrn Urine Cocaine Screen U Marijuana (THC) Screen Ethyl Alcohol Respiratory Panel Gtz Adenovirus (Rapid PCR) B.pert (TEM-PCR) B.parapertussis DNA PCR C. pneumoniae DNA (PCR) C. difficile Tox B Gene C. difficile Toxin A&B C. difficile Interpret Coronavirus OC43 (PCR) Coronavirus HKU1 (PCR) Coronavirus 229E (PCR) Coronavirus NL63 (PCR) Human Metapneumovir PCR Influenza A (RT-PCR) Influenza A (H1) PCR Influ A (H1/09) PCR Influenza A (H3) PCR Influenza B (RT-PCR) M. pneumoniae (PCR) Parainfluenza 1 (PCR) Parainfluenza 2 (PCR) Parainfluenza 3 (PCR) Parainfluenza 4 (PCR) RSV (PCR) Entero/Rhino (PCR) SARS-CoV-2 RNA (RT-PCR) Blood Type Antibody Screen Crossmatch 08/17/24 08/17/24 08/18/24 13:17 14:18 01:15 WBC RBC Hgb Hct MCV MCH MCHC RDW Plt Count MPV Immature Gran % (Auto) Neut % (Auto) Lymph % (Auto) [place] % (Auto) Eos % (Auto) Baso % (Auto) Lymph # (Auto) [place] # (Auto) Eos # (Auto) Baso # (Auto) Abs Immat Gran (auto) Absolute Neuts (auto) Absolute Nucleated RBC Nucleated RBC % (auto) Neutrophils % (Manual) Band Neutrophils % Lymphocytes % (Manual) Monocytes % (Manual) Abs Neuts (Manual) Lymphocytes # (Manual) Monocytes # (Manual) Toxic Granulation Toxic Vacuolation Dohle Bodies Platelet Estimate Large Platelets Plt Morphology Comment RBC Morphology Polychromasia Hypochromasia Macrocytosis Target Cells Ovalocytes Smear Tech's Comments Smear Path Review Hold Purple Top O2 Saturation ABG pH at Pt Temp ABG pCO2 at Pt Temp ABG pO2 at Pt Temp ABG HCO3 ABG Base Excess (Actual) VBG pH VBG pCO2 VBG pO2 VBG HCO3 VBG O2 Saturation VBG Base Excess Sodium 149 H Potassium 3.1 L Chloride 118 H Carbon Dioxide 22 Anion Gap 12 BUN 14 Creatinine 0.72 Estim Creat Clear Calc 103.0 Estimated GFR > 60 POC Glucose Random Glucose 147 H Lactic Acid Lactic Acid F/U @ 2Hr Calcium 8.5 Phosphorus Magnesium Total Bilirubin Direct Bilirubin AST ALT Alkaline Phosphatase Ammonia Troponin I High Sens C-Reactive Protein B-Natriuretic Peptide Total Protein Albumin Triglycerides Vitamin B12 Folate Procalcitonin Stool Occult Blood Random Vancomycin 14.5 L Urine Opiates Screen Ur Buprenorphine Scrn Ur Oxycodone Screen Urine Methadone Screen Urine Fentanyl Screen Ur Barbiturates Screen Ur Phencyclidine Scrn Ur Amphetamines Screen U Benzodiazepines Scrn Urine Cocaine Screen U Marijuana (THC) Screen Ethyl Alcohol Respiratory Panel Gtz See Note Adenovirus (Rapid PCR) Not Detected B.pert (TEM-PCR) Not Detected B.parapertussis DNA PCR Not Detected C. pneumoniae DNA (PCR) Not Detected C. difficile Tox B Gene C. difficile Toxin A&B C. difficile Interpret Coronavirus OC43 (PCR) Not Detected Coronavirus HKU1 (PCR) Not Detected Coronavirus 229E (PCR) Not Detected Coronavirus NL63 (PCR) Not Detected Human Metapneumovir PCR Not Detected Influenza A (RT-PCR) Not Detected Influenza A (H1) PCR Not Detected Influ A (H1/09) PCR Not Detected Influenza A (H3) PCR Not Detected Influenza B (RT-PCR) Not Detected M. pneumoniae (PCR) Not Detected Parainfluenza 1 (PCR) Not Detected Parainfluenza 2 (PCR) Not Detected Parainfluenza 3 (PCR) Not Detected Parainfluenza 4 (PCR) Not Detected RSV (PCR) Not Detected Entero/Rhino (PCR) Not Detected SARS-CoV-2 RNA (RT-PCR) Not Detected Blood Type Antibody Screen Crossmatch 08/18/24 08/18/24 08/18/24 06:43 07:00 13:23 WBC 14.5 H RBC 2.40 L Hgb 8.2 L Hct 24.6 L MCV 102.5 H MCH 34.2 H MCHC 33.3 RDW 17.7 H Plt Count 354 MPV 11.5 Immature Gran % (Auto) 1.2 H Neut % (Auto) 87.5 H Lymph % (Auto) 8.3 L [place] % (Auto) 2.5 Eos % (Auto) 0.2 Baso % (Auto) 0.3 Lymph # (Auto) 1.2 [place] # (Auto) 0.4 Eos # (Auto) 0.0 Baso # (Auto) 0.0 Abs Immat Gran (auto) 0.17 H Absolute Neuts (auto) 12.7 H Absolute Nucleated RBC 0.000 Nucleated RBC % (auto) 0.0 Neutrophils % (Manual) Band Neutrophils % Lymphocytes % (Manual) Monocytes % (Manual) Abs Neuts (Manual) Lymphocytes # (Manual) Monocytes # (Manual) Toxic Granulation Toxic Vacuolation Dohle Bodies Platelet Estimate Large Platelets Plt Morphology Comment RBC Morphology Polychromasia Hypochromasia Macrocytosis Target Cells Ovalocytes Smear Tech's Comments Smear Path Review Hold Purple Top O2 Saturation ABG pH at Pt Temp ABG pCO2 at Pt Temp ABG pO2 at Pt Temp ABG HCO3 ABG Base Excess (Actual) VBG pH VBG pCO2 VBG pO2 VBG HCO3 VBG O2 Saturation VBG Base Excess Sodium 147 H Potassium 2.7 L* Chloride 118 H Carbon Dioxide 21 L Anion Gap 11 L BUN 15 Creatinine 0.68 Estim Creat Clear Calc 111.6 Estimated GFR > 60 POC Glucose Random Glucose 161 H Lactic Acid Lactic Acid F/U @ 2Hr Calcium 8.2 L Phosphorus 2.7 Magnesium 1.5 L Total Bilirubin 1.2 H Direct Bilirubin 0.6 H AST 58 H ALT 15 Alkaline Phosphatase 158 H Ammonia Troponin I High Sens C-Reactive Protein B-Natriuretic Peptide Total Protein 5.8 L Albumin 2.6 L Triglycerides Vitamin B12 Folate Procalcitonin Stool Occult Blood Random Vancomycin 11.6 L Urine Opiates Screen Ur Buprenorphine Scrn Ur Oxycodone Screen Urine Methadone Screen Urine Fentanyl Screen Ur Barbiturates Screen Ur Phencyclidine Scrn Ur Amphetamines Screen U Benzodiazepines Scrn Urine Cocaine Screen U Marijuana (THC) Screen Ethyl Alcohol Respiratory Panel Gtz Adenovirus (Rapid PCR) B.pert (TEM-PCR) B.parapertussis DNA PCR C. pneumoniae DNA (PCR) C. difficile Tox B Gene POSITIVE A* C. difficile Toxin A&B Negative C. difficile Interpret SEE NOTE Coronavirus OC43 (PCR) Coronavirus HKU1 (PCR) Coronavirus 229E (PCR) Coronavirus NL63 (PCR) Human Metapneumovir PCR Influenza A (RT-PCR) Influenza A (H1) PCR Influ A (H1/09) PCR Influenza A (H3) PCR Influenza B (RT-PCR) M. pneumoniae (PCR) Parainfluenza 1 (PCR) Parainfluenza 2 (PCR) Parainfluenza 3 (PCR) Parainfluenza 4 (PCR) RSV (PCR) Entero/Rhino (PCR) SARS-CoV-2 RNA (RT-PCR) Blood Type Antibody Screen Crossmatch 08/19/24 08/19/24 08/19/24 07:01 07:01 07:01 WBC 14.6 H RBC 2.43 L Hgb 8.2 L Hct 24.4 L MCV 100.4 H MCH 33.7 H MCHC 33.6 RDW 16.6 H Plt Count 389 MPV 11.4 Immature Gran % (Auto) 1.0 H Neut % (Auto) 85.7 H Lymph % (Auto) 9.6 L [place] % (Auto) 2.7 Eos % (Auto) 0.8 Baso % (Auto) 0.2 Lymph # (Auto) 1.4 [place] # (Auto) 0.4 Eos # (Auto) 0.1 Baso # (Auto) 0.0 Abs Immat Gran (auto) 0.14 H Absolute Neuts (auto) 12.5 H Absolute Nucleated RBC 0.000 Nucleated RBC % (auto) 0.0 Neutrophils % (Manual) Band Neutrophils % Lymphocytes % (Manual) Monocytes % (Manual) Abs Neuts (Manual) Lymphocytes # (Manual) Monocytes # (Manual) Toxic Granulation Toxic Vacuolation Dohle Bodies Platelet Estimate Large Platelets Plt Morphology Comment RBC Morphology Polychromasia Hypochromasia Macrocytosis Target Cells Ovalocytes Smear Tech's Comments Smear Path Review Hold Purple Top O2 Saturation ABG pH at Pt Temp ABG pCO2 at Pt Temp ABG pO2 at Pt Temp ABG HCO3 ABG Base Excess (Actual) VBG pH VBG pCO2 VBG pO2 VBG HCO3 VBG O2 Saturation VBG Base Excess Sodium Cancelled 139 Potassium Cancelled 2.5 L* Chloride Cancelled Carbon Dioxide Anion Gap BUN Creatinine Estim Creat Clear Calc Estimated GFR POC Glucose Random Glucose Lactic Acid Lactic Acid F/U @ 2Hr Calcium Phosphorus Magnesium Total Bilirubin Direct Bilirubin AST ALT Alkaline Phosphatase Ammonia Troponin I High Sens C-Reactive Protein B-Natriuretic Peptide Total Protein Albumin Triglycerides Vitamin B12 Folate Procalcitonin Stool Occult Blood Random Vancomycin Urine Opiates Screen Ur Buprenorphine Scrn Ur Oxycodone Screen Urine Methadone Screen Urine Fentanyl Screen Ur Barbiturates Screen Ur Phencyclidine Scrn Ur Amphetamines Screen U Benzodiazepines Scrn Urine Cocaine Screen U Marijuana (THC) Screen Ethyl Alcohol Respiratory Panel Gtz Adenovirus (Rapid PCR) B.pert (TEM-PCR) B.parapertussis DNA PCR C. pneumoniae DNA (PCR) C. difficile Tox B Gene C. difficile Toxin A&B C. difficile Interpret Coronavirus OC43 (PCR) Coronavirus HKU1 (PCR) Coronavirus 229E (PCR) Coronavirus NL63 (PCR) Human Metapneumovir PCR Influenza A (RT-PCR) Influenza A (H1) PCR Influ A (H1/09) PCR Influenza A (H3) PCR Influenza B (RT-PCR) M. pneumoniae (PCR) Parainfluenza 1 (PCR) Parainfluenza 2 (PCR) Parainfluenza 3 (PCR) Parainfluenza 4 (PCR) RSV (PCR) Entero/Rhino (PCR) SARS-CoV-2 RNA (RT-PCR) Blood Type Antibody Screen Crossmatch 08/19/24 08/19/24 08/19/24 07:01 07:01 07:01 WBC RBC Hgb Hct MCV MCH MCHC RDW Plt Count MPV Immature Gran % (Auto) Neut % (Auto) Lymph % (Auto) [place] % (Auto) Eos % (Auto) Baso % (Auto) Lymph # (Auto) [place] # (Auto) Eos # (Auto) Baso # (Auto) Abs Immat Gran (auto) Absolute Neuts (auto) Absolute Nucleated RBC Nucleated RBC % (auto) Neutrophils % (Manual) Band Neutrophils % Lymphocytes % (Manual) Monocytes % (Manual) Abs Neuts (Manual) Lymphocytes # (Manual) Monocytes # (Manual) Toxic Granulation Toxic Vacuolation Dohle Bodies Platelet Estimate Large Platelets Plt Morphology Comment RBC Morphology Polychromasia Hypochromasia Macrocytosis Target Cells Ovalocytes Smear Tech's Comments Smear Path Review Hold Purple Top O2 Saturation ABG pH at Pt Temp ABG pCO2 at Pt Temp ABG pO2 at Pt Temp ABG HCO3 ABG Base Excess (Actual) VBG pH VBG pCO2 VBG pO2 VBG HCO3 VBG O2 Saturation VBG Base Excess Sodium Potassium Chloride 109 H Carbon Dioxide Cancelled 20 L Anion Gap Cancelled 13 BUN Cancelled Creatinine Estim Creat Clear Calc Estimated GFR POC Glucose Random Glucose Lactic Acid Lactic Acid F/U @ 2Hr Calcium Phosphorus Magnesium Total Bilirubin Direct Bilirubin AST ALT Alkaline Phosphatase Ammonia Troponin I High Sens C-Reactive Protein B-Natriuretic Peptide Total Protein Albumin Triglycerides Vitamin B12 Folate Procalcitonin Stool Occult Blood Random Vancomycin Urine Opiates Screen Ur Buprenorphine Scrn Ur Oxycodone Screen Urine Methadone Screen Urine Fentanyl Screen Ur Barbiturates Screen Ur Phencyclidine Scrn Ur Amphetamines Screen U Benzodiazepines Scrn Urine Cocaine Screen U Marijuana (THC) Screen Ethyl Alcohol Respiratory Panel Gtz Adenovirus (Rapid PCR) B.pert (TEM-PCR) B.parapertussis DNA PCR C. pneumoniae DNA (PCR) C. difficile Tox B Gene C. difficile Toxin A&B C. difficile Interpret Coronavirus OC43 (PCR) Coronavirus HKU1 (PCR) Coronavirus 229E (PCR) Coronavirus NL63 (PCR) Human Metapneumovir PCR Influenza A (RT-PCR) Influenza A (H1) PCR Influ A (H1/09) PCR Influenza A (H3) PCR Influenza B (RT-PCR) M. pneumoniae (PCR) Parainfluenza 1 (PCR) Parainfluenza 2 (PCR) Parainfluenza 3 (PCR) Parainfluenza 4 (PCR) RSV (PCR) Entero/Rhino (PCR) SARS-CoV-2 RNA (RT-PCR) Blood Type Antibody Screen Crossmatch 08/19/24 08/19/24 08/19/24 07:01 07:01 07:01 WBC RBC Hgb Hct MCV MCH MCHC RDW Plt Count MPV Immature Gran % (Auto) Neut % (Auto) Lymph % (Auto) [place] % (Auto) Eos % (Auto) Baso % (Auto) Lymph # (Auto) [place] # (Auto) Eos # (Auto) Baso # (Auto) Abs Immat Gran (auto) Absolute Neuts (auto) Absolute Nucleated RBC Nucleated RBC % (auto) Neutrophils % (Manual) Band Neutrophils % Lymphocytes % (Manual) Monocytes % (Manual) Abs Neuts (Manual) Lymphocytes # (Manual) Monocytes # (Manual) Toxic Granulation Toxic Vacuolation Dohle Bodies Platelet Estimate Large Platelets Plt Morphology Comment RBC Morphology Polychromasia Hypochromasia Macrocytosis Target Cells Ovalocytes Smear Tech's Comments Smear Path Review Hold Purple Top O2 Saturation ABG pH at Pt Temp ABG pCO2 at Pt Temp ABG pO2 at Pt Temp ABG HCO3 ABG Base Excess (Actual) VBG pH VBG pCO2 VBG pO2 VBG HCO3 VBG O2 Saturation VBG Base Excess Sodium Potassium Chloride Carbon Dioxide Anion Gap BUN 11 Creatinine Cancelled 0.64 Estim Creat Clear Calc Cancelled 118.4 Estimated GFR Cancelled POC Glucose Random Glucose Lactic Acid Lactic Acid F/U @ 2Hr Calcium Phosphorus Magnesium Total Bilirubin Direct Bilirubin AST ALT Alkaline Phosphatase Ammonia Troponin I High Sens C-Reactive Protein B-Natriuretic Peptide Total Protein Albumin Triglycerides Vitamin B12 Folate Procalcitonin Stool Occult Blood Random Vancomycin Urine Opiates Screen Ur Buprenorphine Scrn Ur Oxycodone Screen Urine Methadone Screen Urine Fentanyl Screen Ur Barbiturates Screen Ur Phencyclidine Scrn Ur Amphetamines Screen U Benzodiazepines Scrn Urine Cocaine Screen U Marijuana (THC) Screen Ethyl Alcohol Respiratory Panel Gtz Adenovirus (Rapid PCR) B.pert (TEM-PCR) B.parapertussis DNA PCR C. pneumoniae DNA (PCR) C. difficile Tox B Gene C. difficile Toxin A&B C. difficile Interpret Coronavirus OC43 (PCR) Coronavirus HKU1 (PCR) Coronavirus 229E (PCR) Coronavirus NL63 (PCR) Human Metapneumovir PCR Influenza A (RT-PCR) Influenza A (H1) PCR Influ A (H1/09) PCR Influenza A (H3) PCR Influenza B (RT-PCR) M. pneumoniae (PCR) Parainfluenza 1 (PCR) Parainfluenza 2 (PCR) Parainfluenza 3 (PCR) Parainfluenza 4 (PCR) RSV (PCR) Entero/Rhino (PCR) SARS-CoV-2 RNA (RT-PCR) Blood Type Antibody Screen Crossmatch 08/19/24 08/19/24 08/19/24 07:01 07:01 07:01 WBC RBC Hgb Hct MCV MCH MCHC RDW Plt Count MPV Immature Gran % (Auto) Neut % (Auto) Lymph % (Auto) [place] % (Auto) Eos % (Auto) Baso % (Auto) Lymph # (Auto) [place] # (Auto) Eos # (Auto) Baso # (Auto) Abs Immat Gran (auto) Absolute Neuts (auto) Absolute Nucleated RBC Nucleated RBC % (auto) Neutrophils % (Manual) Band Neutrophils % Lymphocytes % (Manual) Monocytes % (Manual) Abs Neuts (Manual) Lymphocytes # (Manual) Monocytes # (Manual) Toxic Granulation Toxic Vacuolation Dohle Bodies Platelet Estimate Large Platelets Plt Morphology Comment RBC Morphology Polychromasia Hypochromasia Macrocytosis Target Cells Ovalocytes Smear Tech's Comments Smear Path Review Hold Purple Top O2 Saturation ABG pH at Pt Temp ABG pCO2 at Pt Temp ABG pO2 at Pt Temp ABG HCO3 ABG Base Excess (Actual) VBG pH VBG pCO2 VBG pO2 VBG HCO3 VBG O2 Saturation VBG Base Excess Sodium Potassium Chloride Carbon Dioxide Anion Gap BUN Creatinine Estim Creat Clear Calc Estimated GFR > 60 POC Glucose Random Glucose Cancelled 155 H Lactic Acid Lactic Acid F/U @ 2Hr Calcium Cancelled 7.5 L D Phosphorus Cancelled Magnesium Total Bilirubin Direct Bilirubin AST ALT Alkaline Phosphatase Ammonia Troponin I High Sens C-Reactive Protein B-Natriuretic Peptide Total Protein Albumin Triglycerides Vitamin B12 Folate Procalcitonin Stool Occult Blood Random Vancomycin Urine Opiates Screen Ur Buprenorphine Scrn Ur Oxycodone Screen Urine Methadone Screen Urine Fentanyl Screen Ur Barbiturates Screen Ur Phencyclidine Scrn Ur Amphetamines Screen U Benzodiazepines Scrn Urine Cocaine Screen U Marijuana (THC) Screen Ethyl Alcohol Respiratory Panel Gtz Adenovirus (Rapid PCR) B.pert (TEM-PCR) B.parapertussis DNA PCR C. pneumoniae DNA (PCR) C. difficile Tox B Gene C. difficile Toxin A&B C. difficile Interpret Coronavirus OC43 (PCR) Coronavirus HKU1 (PCR) Coronavirus 229E (PCR) Coronavirus NL63 (PCR) Human Metapneumovir PCR Influenza A (RT-PCR) Influenza A (H1) PCR Influ A (H1/09) PCR Influenza A (H3) PCR Influenza B (RT-PCR) M. pneumoniae (PCR) Parainfluenza 1 (PCR) Parainfluenza 2 (PCR) Parainfluenza 3 (PCR) Parainfluenza 4 (PCR) RSV (PCR) Entero/Rhino (PCR) SARS-CoV-2 RNA (RT-PCR) Blood Type Antibody Screen Crossmatch 08/19/24 08/19/24 08/19/24 07:01 07:01 07:01 WBC RBC Hgb Hct MCV MCH MCHC RDW Plt Count MPV Immature Gran % (Auto) Neut % (Auto) Lymph % (Auto) [place] % (Auto) Eos % (Auto) Baso % (Auto) Lymph # (Auto) [place] # (Auto) Eos # (Auto) Baso # (Auto) Abs Immat Gran (auto) Absolute Neuts (auto) Absolute Nucleated RBC Nucleated RBC % (auto) Neutrophils % (Manual) Band Neutrophils % Lymphocytes % (Manual) Monocytes % (Manual) Abs Neuts (Manual) Lymphocytes # (Manual) Monocytes # (Manual) Toxic Granulation Toxic Vacuolation Dohle Bodies Platelet Estimate Large Platelets Plt Morphology Comment RBC Morphology Polychromasia Hypochromasia Macrocytosis Target Cells Ovalocytes Smear Tech's Comments Smear Path Review Hold Purple Top O2 Saturation ABG pH at Pt Temp ABG pCO2 at Pt Temp ABG pO2 at Pt Temp ABG HCO3 ABG Base Excess (Actual) VBG pH VBG pCO2 VBG pO2 VBG HCO3 VBG O2 Saturation VBG Base Excess Sodium Potassium Chloride Carbon Dioxide Anion Gap BUN Creatinine Estim Creat Clear Calc Estimated GFR POC Glucose Random Glucose Lactic Acid Lactic Acid F/U @ 2Hr Calcium Phosphorus 3.4 Magnesium Cancelled 1.1 L* Total Bilirubin Cancelled 1.0 Direct Bilirubin AST Cancelled ALT Alkaline Phosphatase Ammonia Troponin I High Sens C-Reactive Protein B-Natriuretic Peptide Total Protein Albumin Triglycerides Vitamin B12 Folate Procalcitonin Stool Occult Blood Random Vancomycin Urine Opiates Screen Ur Buprenorphine Scrn Ur Oxycodone Screen Urine Methadone Screen Urine Fentanyl Screen Ur Barbiturates Screen Ur Phencyclidine Scrn Ur Amphetamines Screen U Benzodiazepines Scrn Urine Cocaine Screen U Marijuana (THC) Screen Ethyl Alcohol Respiratory Panel Gtz Adenovirus (Rapid PCR) B.pert (TEM-PCR) B.parapertussis DNA PCR C. pneumoniae DNA (PCR) C. difficile Tox B Gene C. difficile Toxin A&B C. difficile Interpret Coronavirus OC43 (PCR) Coronavirus HKU1 (PCR) Coronavirus 229E (PCR) Coronavirus NL63 (PCR) Human Metapneumovir PCR Influenza A (RT-PCR) Influenza A (H1) PCR Influ A (H1/09) PCR Influenza A (H3) PCR Influenza B (RT-PCR) M. pneumoniae (PCR) Parainfluenza 1 (PCR) Parainfluenza 2 (PCR) Parainfluenza 3 (PCR) Parainfluenza 4 (PCR) RSV (PCR) Entero/Rhino (PCR) SARS-CoV-2 RNA (RT-PCR) Blood Type Antibody Screen Crossmatch 08/19/24 08/19/2425 07:01 07:01 07:01 WBC RBC Hgb Hct MCV MCH MCHC RDW Plt Count MPV Immature Gran % (Auto) Neut % (Auto) Lymph % (Auto) [place] % (Auto) Eos % (Auto) Baso % (Auto) Lymph # (Auto) [place] # (Auto) Eos # (Auto) Baso # (Auto) Abs Immat Gran (auto) Absolute Neuts (auto) Absolute Nucleated RBC Nucleated RBC % (auto) Neutrophils % (Manual) Band Neutrophils % Lymphocytes % (Manual) Monocytes % (Manual) Abs Neuts (Manual) Lymphocytes # (Manual) Monocytes # (Manual) Toxic Granulation Toxic Vacuolation Dohle Bodies Platelet Estimate Large Platelets Plt Morphology Comment RBC Morphology Polychromasia Hypochromasia Macrocytosis Target Cells Ovalocytes Smear Tech's Comments Smear Path Review Hold Purple Top O2 Saturation ABG pH at Pt Temp ABG pCO2 at Pt Temp ABG pO2 at Pt Temp ABG HCO3 ABG Base Excess (Actual) VBG pH VBG pCO2 VBG pO2 VBG HCO3 VBG O2 Saturation VBG Base Excess Sodium Potassium Chloride Carbon Dioxide Anion Gap BUN Creatinine Estim Creat Clear Calc Estimated GFR POC Glucose Random Glucose Lactic Acid Lactic Acid F/U @ 2Hr Calcium Phosphorus Magnesium Total Bilirubin Direct Bilirubin AST 47 H ALT Cancelled 19 Alkaline Phosphatase Cancelled 192 H Ammonia Troponin I High Sens C-Reactive Protein B-Natriuretic Peptide Total Protein Cancelled Albumin Triglycerides Vitamin B12 Folate Procalcitonin Stool Occult Blood Random Vancomycin Urine Opiates Screen Ur Buprenorphine Scrn Ur Oxycodone Screen Urine Methadone Screen Urine Fentanyl Screen Ur Barbiturates Screen Ur Phencyclidine Scrn Ur Amphetamines Screen U Benzodiazepines Scrn Urine Cocaine Screen U Marijuana (THC) Screen Ethyl Alcohol Respiratory Panel Gtz Adenovirus (Rapid PCR) B.pert (TEM-PCR) B.parapertussis DNA PCR C. pneumoniae DNA (PCR) C. difficile Tox B Gene C. difficile Toxin A&B C. difficile Interpret Coronavirus OC43 (PCR) Coronavirus HKU1 (PCR) Coronavirus 229E (PCR) Coronavirus NL63 (PCR) Human Metapneumovir PCR Influenza A (RT-PCR) Influenza A (H1) PCR Influ A (H1/09) PCR Influenza A (H3) PCR Influenza B (RT-PCR) M. pneumoniae (PCR) Parainfluenza 1 (PCR) Parainfluenza 2 (PCR) Parainfluenza 3 (PCR) Parainfluenza 4 (PCR) RSV (PCR) Entero/Rhino (PCR) SARS-CoV-2 RNA (RT-PCR) Blood Type Antibody Screen Crossmatch 08/19/24 08/19/24 08/20/24 07:01 07:01 06:52 WBC 14.4 H RBC 2.35 L Hgb 8.1 L Hct 23.7 L MCV 100.9 H MCH 34.5 H MCHC 34.2 RDW 16.1 H Plt Count 413 H MPV 11.5 Immature Gran % (Auto) 2.5 H Neut % (Auto) 85.2 H Lymph % (Auto) 6.9 L [place] % (Auto) 3.8 Eos % (Auto) 1.3 Baso % (Auto) 0.3 Lymph # (Auto) 1.0 L [place] # (Auto) 0.5 Eos # (Auto) 0.2 Baso # (Auto) 0.0 Abs Immat Gran (auto) 0.36 H Absolute Neuts (auto) 12.3 H Absolute Nucleated RBC 0.000 Nucleated RBC % (auto) 0.0 Neutrophils % (Manual) Band Neutrophils % Lymphocytes % (Manual) Monocytes % (Manual) Abs Neuts (Manual) Lymphocytes # (Manual) Monocytes # (Manual) Toxic Granulation Toxic Vacuolation Dohle Bodies Platelet Estimate Large Platelets Plt Morphology Comment RBC Morphology Polychromasia Hypochromasia Macrocytosis Target Cells Ovalocytes Smear Tech's Comments Smear Path Review Hold Purple Top O2 Saturation ABG pH at Pt Temp ABG pCO2 at Pt Temp ABG pO2 at Pt Temp ABG HCO3 ABG Base Excess (Actual) VBG pH VBG pCO2 VBG pO2 VBG HCO3 VBG O2 Saturation VBG Base Excess Sodium 139 Potassium Chloride Carbon Dioxide Anion Gap BUN Creatinine Estim Creat Clear Calc Estimated GFR POC Glucose Random Glucose Lactic Acid Lactic Acid F/U @ 2Hr Calcium Phosphorus Magnesium Total Bilirubin Direct Bilirubin AST ALT Alkaline Phosphatase Ammonia Troponin I High Sens C-Reactive Protein B-Natriuretic Peptide Total Protein 5.8 L Albumin Cancelled 2.6 L Triglycerides Vitamin B12 453 Folate 12.1 Procalcitonin Stool Occult Blood Random Vancomycin Urine Opiates Screen Ur Buprenorphine Scrn Ur Oxycodone Screen Urine Methadone Screen Urine Fentanyl Screen Ur Barbiturates Screen Ur Phencyclidine Scrn Ur Amphetamines Screen U Benzodiazepines Scrn Urine Cocaine Screen U Marijuana (THC) Screen Ethyl Alcohol Respiratory Panel Gtz Adenovirus (Rapid PCR) B.pert (TEM-PCR) B.parapertussis DNA PCR C. pneumoniae DNA (PCR) C. difficile Tox B Gene C. difficile Toxin A&B C. difficile Interpret Coronavirus OC43 (PCR) Coronavirus HKU1 (PCR) Coronavirus 229E (PCR) Coronavirus NL63 (PCR) Human Metapneumovir PCR Influenza A (RT-PCR) Influenza A (H1) PCR Influ A (H1/09) PCR Influenza A (H3) PCR Influenza B (RT-PCR) M. pneumoniae (PCR) Parainfluenza 1 (PCR) Parainfluenza 2 (PCR) Parainfluenza 3 (PCR) Parainfluenza 4 (PCR) RSV (PCR) Entero/Rhino (PCR) SARS-CoV-2 RNA (RT-PCR) Blood Type Antibody Screen Crossmatch 08/20/24 08/20/24 08/20/24 06:52 06:52 06:52 WBC RBC Hgb Hct MCV MCH MCHC RDW Plt Count MPV Immature Gran % (Auto) Neut % (Auto) Lymph % (Auto) [place] % (Auto) Eos % (Auto) Baso % (Auto) Lymph # (Auto) [place] # (Auto) Eos # (Auto) Baso # (Auto) Abs Immat Gran (auto) Absolute Neuts (auto) Absolute Nucleated RBC Nucleated RBC % (auto) Neutrophils % (Manual) Band Neutrophils % Lymphocytes % (Manual) Monocytes % (Manual) Abs Neuts (Manual) Lymphocytes # (Manual) Monocytes # (Manual) Toxic Granulation Toxic Vacuolation Dohle Bodies Platelet Estimate Large Platelets Plt Morphology Comment RBC Morphology Polychromasia Hypochromasia Macrocytosis Target Cells Ovalocytes Smear Tech's Comments Smear Path Review Hold Purple Top O2 Saturation ABG pH at Pt Temp ABG pCO2 at Pt Temp ABG pO2 at Pt Temp ABG HCO3 ABG Base Excess (Actual) VBG pH VBG pCO2 VBG pO2 VBG HCO3 VBG O2 Saturation VBG Base Excess Sodium Cancelled Potassium 2.8 L* Cancelled Chloride 107 Cancelled Carbon Dioxide 21 L Anion Gap BUN Creatinine Estim Creat Clear Calc Estimated GFR POC Glucose Random Glucose Lactic Acid Lactic Acid F/U @ 2Hr Calcium Phosphorus Magnesium Total Bilirubin Direct Bilirubin AST ALT Alkaline Phosphatase Ammonia Troponin I High Sens C-Reactive Protein B-Natriuretic Peptide Total Protein Albumin Triglycerides Vitamin B12 Folate Procalcitonin Stool Occult Blood Random Vancomycin Urine Opiates Screen Ur Buprenorphine Scrn Ur Oxycodone Screen Urine Methadone Screen Urine Fentanyl Screen Ur Barbiturates Screen Ur Phencyclidine Scrn Ur Amphetamines Screen U Benzodiazepines Scrn Urine Cocaine Screen U Marijuana (THC) Screen Ethyl Alcohol Respiratory Panel Gtz Adenovirus (Rapid PCR) B.pert (TEM-PCR) B.parapertussis DNA PCR C. pneumoniae DNA (PCR) C. difficile Tox B Gene C. difficile Toxin A&B C. difficile Interpret Coronavirus OC43 (PCR) Coronavirus HKU1 (PCR) Coronavirus 229E (PCR) Coronavirus NL63 (PCR) Human Metapneumovir PCR Influenza A (RT-PCR) Influenza A (H1) PCR Influ A (H1/09) PCR Influenza A (H3) PCR Influenza B (RT-PCR) M. pneumoniae (PCR) Parainfluenza 1 (PCR) Parainfluenza 2 (PCR) Parainfluenza 3 (PCR) Parainfluenza 4 (PCR) RSV (PCR) Entero/Rhino (PCR) SARS-CoV-2 RNA (RT-PCR) Blood Type Antibody Screen Crossmatch 08/20/24 08/20/24 08/20/24 06:52 06:52 06:52 WBC RBC Hgb Hct MCV MCH MCHC RDW Plt Count MPV Immature Gran % (Auto) Neut % (Auto) Lymph % (Auto) [place] % (Auto) Eos % (Auto) Baso % (Auto) Lymph # (Auto) [place] # (Auto) Eos # (Auto) Baso # (Auto) Abs Immat Gran (auto) Absolute Neuts (auto) Absolute Nucleated RBC Nucleated RBC % (auto) Neutrophils % (Manual) Band Neutrophils % Lymphocytes % (Manual) Monocytes % (Manual) Abs Neuts (Manual) Lymphocytes # (Manual) Monocytes # (Manual) Toxic Granulation Toxic Vacuolation Dohle Bodies Platelet Estimate Large Platelets Plt Morphology Comment RBC Morphology Polychromasia Hypochromasia Macrocytosis Target Cells Ovalocytes Smear Tech's Comments Smear Path Review Hold Purple Top O2 Saturation ABG pH at Pt Temp ABG pCO2 at Pt Temp ABG pO2 at Pt Temp ABG HCO3 ABG Base Excess (Actual) VBG pH VBG pCO2 VBG pO2 VBG HCO3 VBG O2 Saturation VBG Base Excess Sodium Potassium Chloride Carbon Dioxide Cancelled Anion Gap 14 Cancelled BUN 13 Cancelled Creatinine 0.68 Estim Creat Clear Calc Estimated GFR POC Glucose Random Glucose Lactic Acid Lactic Acid F/U @ 2Hr Calcium Phosphorus Magnesium Total Bilirubin Direct Bilirubin AST ALT Alkaline Phosphatase Ammonia Troponin I High Sens C-Reactive Protein B-Natriuretic Peptide Total Protein Albumin Triglycerides Vitamin B12 Folate Procalcitonin Stool Occult Blood Random Vancomycin Urine Opiates Screen Ur Buprenorphine Scrn Ur Oxycodone Screen Urine Methadone Screen Urine Fentanyl Screen Ur Barbiturates Screen Ur Phencyclidine Scrn Ur Amphetamines Screen U Benzodiazepines Scrn Urine Cocaine Screen U Marijuana (THC) Screen Ethyl Alcohol Respiratory Panel Gtz Adenovirus (Rapid PCR) B.pert (TEM-PCR) B.parapertussis DNA PCR C. pneumoniae DNA (PCR) C. difficile Tox B Gene C. difficile Toxin A&B C. difficile Interpret Coronavirus OC43 (PCR) Coronavirus HKU1 (PCR) Coronavirus 229E (PCR) Coronavirus NL63 (PCR) Human Metapneumovir PCR Influenza A (RT-PCR) Influenza A (H1) PCR Influ A (H1/09) PCR Influenza A (H3) PCR Influenza B (RT-PCR) M. pneumoniae (PCR) Parainfluenza 1 (PCR) Parainfluenza 2 (PCR) Parainfluenza 3 (PCR) Parainfluenza 4 (PCR) RSV (PCR) Entero/Rhino (PCR) SARS-CoV-2 RNA (RT-PCR) Blood Type Antibody Screen Crossmatch 08/20/24 08/20/24 08/20/24 06:52 06:52 06:52 WBC RBC Hgb Hct MCV MCH MCHC RDW Plt Count MPV Immature Gran % (Auto) Neut % (Auto) Lymph % (Auto) [place] % (Auto) Eos % (Auto) Baso % (Auto) Lymph # (Auto) [place] # (Auto) Eos # (Auto) Baso # (Auto) Abs Immat Gran (auto) Absolute Neuts (auto) Absolute Nucleated RBC Nucleated RBC % (auto) Neutrophils % (Manual) Band Neutrophils % Lymphocytes % (Manual) Monocytes % (Manual) Abs Neuts (Manual) Lymphocytes # (Manual) Monocytes # (Manual) Toxic Granulation Toxic Vacuolation Dohle Bodies Platelet Estimate Large Platelets Plt Morphology Comment RBC Morphology Polychromasia Hypochromasia Macrocytosis Target Cells Ovalocytes Smear Tech's Comments Smear Path Review Hold Purple Top O2 Saturation ABG pH at Pt Temp ABG pCO2 at Pt Temp ABG pO2 at Pt Temp ABG HCO3 ABG Base Excess (Actual) VBG pH VBG pCO2 VBG pO2 VBG HCO3 VBG O2 Saturation VBG Base Excess Sodium Potassium Chloride Carbon Dioxide Anion Gap BUN Creatinine Cancelled Estim Creat Clear Calc 115.2 Cancelled Estimated GFR > 60 Cancelled POC Glucose Random Glucose 233 H Lactic Acid Lactic Acid F/U @ 2Hr Calcium Phosphorus Magnesium Total Bilirubin Direct Bilirubin AST ALT Alkaline Phosphatase Ammonia Troponin I High Sens C-Reactive Protein B-Natriuretic Peptide Total Protein Albumin Triglycerides Vitamin B12 Folate Procalcitonin Stool Occult Blood Random Vancomycin Urine Opiates Screen Ur Buprenorphine Scrn Ur Oxycodone Screen Urine Methadone Screen Urine Fentanyl Screen Ur Barbiturates Screen Ur Phencyclidine Scrn Ur Amphetamines Screen U Benzodiazepines Scrn Urine Cocaine Screen U Marijuana (THC) Screen Ethyl Alcohol Respiratory Panel Gtz Adenovirus (Rapid PCR) B.pert (TEM-PCR) B.parapertussis DNA PCR C. pneumoniae DNA (PCR) C. difficile Tox B Gene C. difficile Toxin A&B C. difficile Interpret Coronavirus OC43 (PCR) Coronavirus HKU1 (PCR) Coronavirus 229E (PCR) Coronavirus NL63 (PCR) Human Metapneumovir PCR Influenza A (RT-PCR) Influenza A (H1) PCR Influ A (H1/09) PCR Influenza A (H3) PCR Influenza B (RT-PCR) M. pneumoniae (PCR) Parainfluenza 1 (PCR) Parainfluenza 2 (PCR) Parainfluenza 3 (PCR) Parainfluenza 4 (PCR) RSV (PCR) Entero/Rhino (PCR) SARS-CoV-2 RNA (RT-PCR) Blood Type Antibody Screen Crossmatch 08/20/24 08/20/24 08/21/24 06:52 06:52 08:27 WBC 16.1 H RBC 2.71 L Hgb 9.3 L Hct 27.3 L MCV 100.7 H MCH 34.3 H MCHC 34.1 RDW 16.2 H Plt Count 478 H MPV 10.6 Immature Gran % (Auto) 2.4 H Neut % (Auto) 87.3 H Lymph % (Auto) 6.8 L [place] % (Auto) 3.0 Eos % (Auto) 0.3 Baso % (Auto) 0.2 Lymph # (Auto) 1.1 L [place] # (Auto) 0.5 Eos # (Auto) 0.1 Baso # (Auto) 0.0 Abs Immat Gran (auto) 0.38 H Absolute Neuts (auto) 14.1 H Absolute Nucleated RBC 0.000 Nucleated RBC % (auto) 0.0 Neutrophils % (Manual) Band Neutrophils % Lymphocytes % (Manual) Monocytes % (Manual) Abs Neuts (Manual) Lymphocytes # (Manual) Monocytes # (Manual) Toxic Granulation Toxic Vacuolation Dohle Bodies Platelet Estimate Large Platelets Plt Morphology Comment RBC Morphology Polychromasia Hypochromasia Macrocytosis Target Cells Ovalocytes Smear Tech's Comments Smear Path Review Hold Purple Top O2 Saturation ABG pH at Pt Temp ABG pCO2 at Pt Temp ABG pO2 at Pt Temp ABG HCO3 ABG Base Excess (Actual) VBG pH VBG pCO2 VBG pO2 VBG HCO3 VBG O2 Saturation VBG Base Excess Sodium 137 Potassium 3.8 D Chloride 110 H Carbon Dioxide 21 L Anion Gap 10 L BUN 13 Creatinine 0.68 Estim Creat Clear Calc 118.9 Estimated GFR > 60 POC Glucose Random Glucose Cancelled 162 H Lactic Acid Lactic Acid F/U @ 2Hr Calcium 7.9 L Cancelled 8.2 L Phosphorus 3.3 3.4 Magnesium 1.6 1.3 L* Total Bilirubin 0.6 0.6 Direct Bilirubin AST 48 H 43 H ALT 20 27 Alkaline Phosphatase 225 H 236 H Ammonia Troponin I High Sens C-Reactive Protein B-Natriuretic Peptide Total Protein 5.5 L 6.1 L Albumin 2.5 L 2.7 L Triglycerides Vitamin B12 Folate Procalcitonin Stool Occult Blood Random Vancomycin Urine Opiates Screen Ur Buprenorphine Scrn Ur Oxycodone Screen Urine Methadone Screen Urine Fentanyl Screen Ur Barbiturates Screen Ur Phencyclidine Scrn Ur Amphetamines Screen U Benzodiazepines Scrn Urine Cocaine Screen U Marijuana (THC) Screen Ethyl Alcohol Respiratory Panel Gtz Adenovirus (Rapid PCR) B.pert (TEM-PCR) B.parapertussis DNA PCR C. pneumoniae DNA (PCR) C. difficile Tox B Gene C. difficile Toxin A&B C. difficile Interpret Coronavirus OC43 (PCR) Coronavirus HKU1 (PCR) Coronavirus 229E (PCR) Coronavirus NL63 (PCR) Human Metapneumovir PCR Influenza A (RT-PCR) Influenza A (H1) PCR Influ A (H1/) PCR Influenza A (H3) PCR Influenza B (RT-PCR) M. pneumoniae (PCR) Parainfluenza 1 (PCR) Parainfluenza 2 (PCR) Parainfluenza 3 (PCR) Parainfluenza 4 (PCR) RSV (PCR) Entero/Rhino (PCR) SARS-CoV-2 RNA (RT-PCR) Blood Type Antibody Screen Crossmatch 08/22/24 06:47 WBC RBC Hgb Hct MCV MCH MCHC RDW Plt Count MPV Immature Gran % (Auto) Neut % (Auto) Lymph % (Auto) [place] % (Auto) Eos % (Auto) Baso % (Auto) Lymph # (Auto) [place] # (Auto) Eos # (Auto) Baso # (Auto) Abs Immat Gran (auto) Absolute Neuts (auto) Absolute Nucleated RBC Nucleated RBC % (auto) Neutrophils % (Manual) Band Neutrophils % Lymphocytes % (Manual) Monocytes % (Manual) Abs Neuts (Manual) Lymphocytes # (Manual) Monocytes # (Manual) Toxic Granulation Toxic Vacuolation Dohle Bodies Platelet Estimate Large Platelets Plt Morphology Comment RBC Morphology Polychromasia Hypochromasia Macrocytosis Target Cells Ovalocytes Smear Tech's Comments Smear Path Review Hold Purple Top SEE NOTE O2 Saturation ABG pH at Pt Temp ABG pCO2 at Pt Temp ABG pO2 at Pt Temp ABG HCO3 ABG Base Excess (Actual) VBG pH VBG pCO2 VBG pO2 VBG HCO3 VBG O2 Saturation VBG Base Excess Sodium 139 Potassium 3.5 Chloride 106 Carbon Dioxide 24 Anion Gap 13 BUN 9 Creatinine 0.62 Estim Creat Clear Calc 130.5 Estimated GFR > 60 POC Glucose Random Glucose 96 Lactic Acid Lactic Acid F/U @ 2Hr Calcium 8.7 D Phosphorus 2.9 Magnesium 1.4 L* Total Bilirubin 0.8 Direct Bilirubin AST 44 H ALT 27 Alkaline Phosphatase 255 H Ammonia Troponin I High Sens C-Reactive Protein B-Natriuretic Peptide Total Protein 6.8 Albumin 3.0 L Triglycerides Vitamin B12 Folate Procalcitonin Stool Occult Blood Random Vancomycin Urine Opiates Screen Ur Buprenorphine Scrn Ur Oxycodone Screen Urine Methadone Screen Urine Fentanyl Screen Ur Barbiturates Screen Ur Phencyclidine Scrn Ur Amphetamines Screen U Benzodiazepines Scrn Urine Cocaine Screen U Marijuana (THC) Screen Ethyl Alcohol Respiratory Panel Gtz Adenovirus (Rapid PCR) B.pert (TEM-PCR) B.parapertussis DNA PCR C. pneumoniae DNA (PCR) C. difficile Tox B Gene C. difficile Toxin A&B C. difficile Interpret Coronavirus OC43 (PCR) Coronavirus HKU1 (PCR) Coronavirus 229E (PCR) Coronavirus NL63 (PCR) Human Metapneumovir PCR Influenza A (RT-PCR) Influenza A (H1) PCR Influ A (H1/09) PCR Influenza A (H3) PCR Influenza B (RT-PCR) M. pneumoniae (PCR) Parainfluenza 1 (PCR) Parainfluenza 2 (PCR) Parainfluenza 3 (PCR) Parainfluenza 4 (PCR) RSV (PCR) Entero/Rhino (PCR) SARS-CoV-2 RNA (RT-PCR) Blood Type Antibody Screen Crossmatch Airway Mallampati Class: II TM Dist: >3cm Neck ROM: Full Denture: Upper Partial: Lower Loose/Missing/Broken Teeth: Yes, Upper and Lower Heart: RRR Lungs: CTA Assessment and Plan Assessment Anesthesia Assessment: Anesthesia Plan Discussed and Chart Reviewed Final Anesthetic Review Family History of Problems with Anesthesia: No History of Problems with Anesthesia: No NPO: Yes ASA Class: III Final Preanesthetic Review: Meds/Allgs Chart Reviewed, Consent Obtained/Reviewed and Anes Risks/Benef Reviewed Patient Risk: Intermediate Procedure Risk: Low Anesthetic Plan Anesthetic Plan: GA Disposition: Standard PACU
--- NOTE | 2024-08-22 15:09 | MHC.CM.PN ---
EMR REVIEWED, PT W/CDIF, JUANITO SMITH, PAUL, PLAN FOR SURGICAL REPAIR OF RIGHT SHOULDER FX TODAY, P.T. CURRENTLY RECOMMENDING STR, REFERRAL TO LOCAL SNFS PLACED, PT WILL NEED ACCEPTING SNF AND INSURANCE AUTH, CM WILL CONT TO FOLLOW DC NEEDS.
--- NOTE | 2024-08-22 15:42 | PM.OP ---
Brief Operative Note Date of Service: 08/22/24 Pre-op diagnosis: Right shoulder fracture/dislocation Post-op diagnosis: same Procedure: Open reduction with removal of loose bodies Implants: none Surgeon: Drake Gonsalez MD Anesthesia: GETA and local Was an Reservation Sales Agent used for this Procedure?: Yes Reservation Sales Agent: Jenn Dickson Estimated blood loss (mL): 50 IV fluids (mL): 500 Pathology: none sent Condition: stable Disposition: PACU
--- NOTE | 2024-08-22 15:44 | P.PNIM_ITS ---
Subjective Subjective Date of Service: 08/22/24 Interval History: seen and evaluated alert and interactive tolerating diet Plan for surgery today weaned off O2 still having diarrhea Review of Systems Review of Systems: Yes all other systems are reviewed and are negative Physical Exam 2 Vital Signs: Vital Signs: Last Vital Signs Temp 98 F 08/22/24 15:35 Pulse 90 08/22/24 15:35 Resp 18 08/22/24 15:35 BP 131/86 08/22/24 15:35 Pulse Ox 93 08/22/24 15:35 O2 Del Method Room Air 08/22/24 15:35 O2 Flow Rate 6 08/22/24 15:20 FiO2 93 08/20/24 07:23 BMI result Body Mass Index 22.2 Const: Other: Constitutional : Awake, interactive, not in distress Neck : Normal inspection, Supple Cardiovascular : RRR, no JVP, no lower extremity edema Respiratory : good bilateral air entry, fine crackles, wheezes or rhonchi, on RA Gastrointestinal: soft, lax, Normal bowel sounds, Non tender extremities: RUE in sling Skin : Warm, Dry Neurological : Alert & oriented x3, No focal deficit Objective Data Active Medications Acetaminophen (Acetaminophen Oral Liquid 650 Mg/20.3 Ml Solution) 650 mg PO Q6H PRN PRN Reason: Fever >101 Last Admin: 08/15/24 13:57 Dose: 650 mg Documented By: SIMI Albuterol/Ipratropium (Albuterol/Iprat 2.5/0.5mg 3 Ml Ampul.Neb) 3 ml INHALE RQ6H [facility] Last Admin: 08/22/24 11:15 Dose: Not Given Documented By: DONNA Non-Admin Reason: Patient Refused Albuterol/Ipratropium (Albuterol/Iprat 2.5/0.5mg 3 Ml Ampul.Neb) 3 ml INHALE ONCE PRN PRN Reason: Bronchospasm/wheezing Stop: 08/22/24 19:49 Amlodipine Besylate (Amlodipine Besylate 5 Mg Tablet) 5 mg PO DAILY [facility]; Protocol Last Admin: 08/22/24 08:47 Dose: 5 mg Documented By: CONSUELO Enoxaparin Sodium (Enoxaparin Sodium 40 Mg/0.4 Ml Syringe) 40 mg SUBCUT Q24H [facility] Last Admin: 08/21/24 13:14 Dose: Not Given Documented By: BRIANA Non-Admin Reason: Physician Held Med Fentanyl (Fentanyl Citrate/Pf 100 Mcg/2 Ml Vial) 25 mcg IVPUSH Q5M PRN PRN Reason: Pain, Moderate to Severe (Pain Scale 4-10) Stop: 08/22/24 19:49 Folic Acid (Folic Acid 1 Mg Tablet) 1 mg PO DAILY [facility] Last Admin: 08/22/24 08:47 Dose: 1 mg Documented By: CONSUELO Hydromorphone HCl (Hydromorphone Hcl 0.5 Mg/0.5 Ml Syringe) 0.25 mg IVPUSH Q5M PRN PRN Reason: Pain, Moderate to Severe (Pain Scale 4-10) Stop: 08/22/24 19:49 Levetiracetam (Levetiracetam 500 Mg Tablet) 500 mg PO BID [facility] Loperamide HCl (Loperamide Hcl 2 Mg Capsule) 2 mg PO Q4H PRN PRN Reason: Diarrhea Last Admin: 08/21/24 13:13 Dose: 2 mg Documented By: BRIANA Magnesium Oxide (Magnesium Oxide 400 Mg Tablet) [facility] Last Admin: 08/22/24 08:47 Dose: 400 mg Documented By: CONSUELO Metoprolol Succinate (Metoprolol Succinate Er 50 Mg Tab.Er.24h) 50 mg PO DAILY [facility]; Protocol Last Admin: 08/22/24 08:47 Dose: 50 mg Documented By: CONSUELO Morphine Sulfate (Morphine Sulfate 2 Mg/Ml Cartridge) 2 mg IVPUSH Q4H PRN; Protocol PRN Reason: Pain, Severe (Pain Scale 7-10) Last Admin: 08/22/24 11:31 Dose: 2 mg Documented By: CONSUELO Naloxone HCl (Naloxone Hcl 0.4 Mg/Ml Vial) 0.04 mg IVPUSH Q5M PRN PRN Reason: Excessive sedation or RR < 8 Nicotine (Nicotine 14 Mg Patch.Td24) 14 mg TRANSDERMA DAILY [facility] Last Admin: 08/22/24 08:48 Dose: 14 mg Documented By: CONSUELO Omeprazole (Omeprazole 40 Mg Capsule.Dr) 40 mg PO BID@0630,1630 [facility] Last Admin: 08/22/24 06:29 Dose: 40 mg Documented By: MARY JO Ondansetron HCl (Ondansetron Hcl 4 Mg/2 Ml Vial) 4 mg IVPUSH ONCE PRN PRN Reason: Nausea and Vomiting Stop: 08/22/24 19:49 Oxycodone HCl (Oxycodone Hcl Immed Release 5 Mg Tablet) 5 mg PO ONCE PRN PRN Reason: Pain, Moderate(Pain Scale 4-6) if no IV Access Stop: 08/22/24 19:49 Prednisone (Prednisone 20 Mg Tablet) 40 mg PO DAILY [facility] Last Admin: 08/22/24 08:47 Dose: 40 mg Documented By: CONSUELO Sodium Chloride (0.9 % Sodium Chloride Flush 3 Ml Syringe) [facility] Last Admin: 08/22/24 08:53 Dose: 3 ml Documented By: CONSUELO Sodium Chloride (0.9 % Sodium Chloride Flush 10 Ml Syringe) 5 [facility] Last Admin: 08/22/24 08:47 Dose: 5 ml Documented By: CONSUELO Thiamine HCl (Thiamine Hcl 100 Mg Tablet) 100 mg PO DAILY [facility] Last Admin: 08/22/24 08:47 Dose: 100 mg Documented By: CONSUELO Vancomycin HCl (Vancomycin Hcl 125 Mg Capsule) 125 mg PO Q6H [facility] Last Admin: 08/22/24 08:58 Dose: 125 mg Documented By: CONSUELO Labs 08/21/24 08:27 08/22/24 06:47 Labs: Laboratory Results - last 24 hr 08/22/24 06:47 Hold Purple Top SEE NOTE Anion Gap 13 Estim Creat Clear Calc 130.5 Estimated GFR > 60 Random Glucose 96 Calcium 8.7 D Phosphorus 2.9 Magnesium 1.4 L* Total Bilirubin 0.8 AST 44 H ALT 27 Alkaline Phosphatase 255 H Total Protein 6.8 Albumin 3.0 L Assessment and Plan (1) C. difficile diarrhea: Status: Acute (2) Pulmonary aspiration: Status: Acute (3) Acute respiratory failure with hypoxia: Status: Acute (4) Shoulder fracture, right: Status: Acute Plan 54F H alcohol dependence presented on 08/06/2024 with mechanical fall and delirium tremens complicated by right shoulder fracture requiring ICU admission and Precedex complicated by hypotension and anemia, went on to develop sepsis due to pneumonia. Patient was weaned off Precedex and downgraded to medical floor on 08/14/2024 Mechanical fall complicated by right shoulder fracture Follow up Orthopedics once resp status better - sling RUE, NWB RUE OR reduction today by Ortho PT eval Sepsis and acute hypoxic respiratory failure secondary to pneumonia from aspiration no fever overnight Sputum culture grew E coli negative pulm panel +ve C.Diff testing ceftriaxone broadened to vanc/zosyn, negative blood cultures, DC IV Vancomycin, to finish 1 week of Abx, discontinue continue Steroids , switch to PO Wean O2 as tolerated - still needing high flow Swallowing problem [employer] rec regular diet Alcohol dependence with acute metabolic encephalopathy and delirium tremens complicated by cardiogenic shock requiring ICU admission with Precedex and pressors Delirium tremens resolved Encephalopathy significantly improved Off pressors switch Folic acid and Thiamin to PO recovery team to follow C.Diff diarrhea Tested positive for Toxin Gene PO Vancomycin Q6 Imodium as needed Acute on chronic anemia Likely inflammatory, transfused 1 unit PRBC 08/15/24 hgb improved acute hypokalemia and hpyomagnesemia K 2.5, Mg 1.1 replace IV and PO and monitor acute hypernatremia improved, monitor BMP DVT prophylaxis with Lovenox Full Code reason for continued hospitalization: Weaning down O2, PT evaluation, correcting Electrolytes Quality Stroke Does the patient have a stroke diagnosis?: No VTE Prior VTE?: No VTE Risk Level:: Medical - moderate - high VTE Device Contraindication: Treatment Not Indicated VTE Drug Contraindication: N/A - Med Ordered
[2024-08-22] MEDS: Albuterol/Iprat 2.5/0.5MG 3 ML AMPUL.NEB INHALE (20:05)
[2024-08-22] MEDS: levETIRAcetam 500 MG TABLET PO (21:46)
[2024-08-23] MEDS: vancomycin HCL 125 MG CAPSULE PO ×4 (03:43→20:44)
[2024-08-23 03:58] VITALS: BP 141/75; PULSE 92; RESP 16; TEMP 37.1; O2SAT 94
[2024-08-23] MEDS: Omeprazole 40 MG CAPSULE.DR PO ×2 (05:50→18:19)
[2024-08-23 06:29] LABS: MANUAL DIFF FLAG NO
[2024-08-23 06:33] LABS: Basophils Percent Auto 0.2 % (0-2); Eosinophils Absolute Auto 0.1 X10*3/uL (0.0-0.4); Eosinophils Percent Auto 0.5 % (0-4); Hematocrit 24.3 % (42.0-52.0); Hemoglobin 8.2 g/dl (14.0-18.0); Imm Gran Abs Auto 0.13 X10*3/uL (0.00-0.03); Lymphocytes Absolute Auto 1.8 X10*3/uL (1.2-4.9); Lymphocytes Percent Auto 13.1 % (20-40); Mean Corpuscular HGB Conc 33.7 g/dl (31.0-36.0); Mean Corpuscular Hemoglobin 34.3 pg (27.0-33.0); Mean Corpuscular Volume 101.7 fL (80.0-98.0); Mean Platelet Volume 10.5 fL (9.4-12.4); Monocytes Absolute Auto 1.1 X10*3/uL (0.1-1.2); Monocytes Percent Auto 8.3 % (2-11); Neutrophils Absolute Auto 10.3 x10*3/uL (2.0-8.3); Neutrophils Percent Auto 76.9 % (45-73); Platelet Count 483 X10*3/uL (160-400); Red Blood Count 2.39 X10*6/uL (4.60-5.80); Red Cell Distribution Width 16.4 % (11.0-16.0); White Blood Count 13.4 X10*3/uL (4.8-10.8)
[2024-08-23 07:17] VITALS: BP 154/79; PULSE 90; RESP 18; TEMP 36.8; O2SAT 96
[2024-08-23 07:40] LABS: Alanine Aminotransferase 27 U/L (0-40); Albumin Level 2.6 g/dL (3.5-5.0); Alkaline Phosphatase 198 U/L (39-117); Anion Gap 13 (12-20); Aspartate Amino Transferase 40 U/L (5-37); Bilirubin Total 0.5 mg/dL (0.0-1.0); Blood Urea Nitrogen 10 mg/dL (9-16); Calcium 7.9 mg/dL (8.4-10.2); Carbon Dioxide 23 mmol/L (22-29); Chloride 104 mmol/L (96-108); Creatinine Clr Calc Pharmacy 132.6; Estimated Glomerular Filt Rate > 60; Glucose Random 96 mg/dL (60-115); Phosphorus 3.8 mg/dL (2.7-4.5); Sodium 137 mmol/L (135-145); Total Protein 5.9 g/dL (6.5-8.0)
[2024-08-23 07:45] LABS: Potassium 2.9 mmol/L (3.3-5.1)
[2024-08-23 07:46] LABS: Magnesium 1.2 mg/dL (1.6-2.6)
--- NOTE | 2024-08-23 07:58 | P.PNOP_ITS ---
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 He has good sensation of the anterior deltoid forear m wrist and hand. Good motor function with radial ulnar and median nerve function. Cap refill brisk. Procedures Date of Service Date of Service: 08/23/24 Progress Note: A&P Assessment and plan (1) Fracture, humerus, proximal: Status: Acute (2) Dislocation of shoulder, right, closed: Status: Acute Plan Sling P.T. and O.T. ordered Encourage gentle ROM of the shoulder elbow hand and wrist to avoid stiffness NWB RUE Time Spent With Patient Time: Total time managing care of this patient today ____ minutes. Quality Stroke Does the patient have a stroke diagnosis?: No VTE Prior VTE?: No VTE Risk Level:: Medical - moderate - high VTE Device Contraindication: Treatment Not Indicated VTE Drug Contraindication: N/A - Med Ordered
[2024-08-23] MEDS: Potassium Chloride Packet 20 MEQ PACKET 40 MEQ PO ×2 (08:15→13:11)
--- NOTE | 2024-08-23 08:18 | HO.POSTANES ---
Post Anesthesia Evaluation Post Anesthesia Evaluation Date of Service: 08/23/24 Vital Signs: Vital Signs Temp Pulse Resp BP Pulse Ox O2 Del Method 08/23/24 07:17 98.3 F 90 18 154/79 H 96 Room Air 08/23/24 03:58 98.7 F 92 16 141/75 H 94 Room Air Anesthesia: General Endotracheal-GETA Mental Status: Awake Pain Control: Satisfactory Nausea/Vomiting: None Hydration: Adequate Anesthesia-Related Issues: No Anes. Related Issues
[2024-08-23] MEDS: Magnesium Sulfate/H2O 2 GM/50 ML PIGGYBACK IV (08:19)
[2024-08-23] MEDS: 0.9 % Sodium Chloride Flush 10 ML SYRINGE 5 ML IVFLUSH ×3 (08:20→23:56)
[2024-08-23] MEDS: 0.9 % Sodium Chloride Flush 3 ML SYRINGE IVFLUSH ×3 (08:20→23:54)
[2024-08-23] MEDS: Nicotine 14 MG PATCH.TD24 TRANSDERMA (08:35)
[2024-08-23] MEDS: Folic Acid 1 MG TABLET PO (08:35)
[2024-08-23] MEDS: Magnesium Oxide 400 MG TABLET PO ×2 (08:36→18:19)
[2024-08-23] MEDS: levETIRAcetam 500 MG TABLET PO ×2 (08:36→20:44)
[2024-08-23] MEDS: Metoprolol Succinate ER 50 MG TAB.ER.24H PO (08:36)
[2024-08-23] MEDS: amLODIPine Besylate 5 MG TABLET PO (08:37)
[2024-08-23] MEDS: Thiamine HCL 100 MG TABLET PO (08:37)
[2024-08-23] MEDS: predniSONE 20 MG TABLET 40 MG PO (08:37)
[2024-08-23] MEDS: Acetaminophen 325 MG TABLET 650 MG PO (12:07)
[2024-08-23] MEDS: Morphine Sulfate 2 MG/ML CARTRIDGE IVPUSH ×2 (12:07→18:19)
[2024-08-23] MEDS: Loperamide HCl 2 MG CAPSULE PO (12:08)
--- NOTE | 2024-08-23 12:49 | P.PNIM_ITS ---
Subjective Subjective Date of Service: 08/23/24 Interval History: seen and evaluated alert and interactive tolerating diet POD 1 post Right humerus surgery weaned off O2 improved diarrhea Review of Systems Review of Systems: Yes all other systems are reviewed and are negative Physical Exam 2 Vital Signs: Vital Signs: Last Vital Signs Temp 98.3 F 08/23/24 07:17 Pulse 90 08/23/24 07:17 Resp 18 08/23/24 07:17 BP 154/79 H 08/23/24 07:17 Pulse Ox 96 08/23/24 07:17 O2 Del Method Room Air 08/23/24 07:17 O2 Flow Rate 6 08/22/24 15:20 FiO2 93 08/20/24 07:23 BMI result Body Mass Index 22.2 Const: Other: Constitutional : Awake, interactive, not in distress Neck : Normal inspection, Supple Cardiovascular : RRR, no JVP, no lower extremity edema Respiratory : good bilateral air entry, fine crackles, wheezes or rhonchi, on RA Gastrointestinal: soft, lax, Normal bowel sounds, Non tender extremities: RUE in sling post op, wound covered with dressing Skin : Warm, Dry Neurological : Alert & oriented x3, No focal deficit Objective Data Active Medications Acetaminophen (Acetaminophen Oral Liquid 650 Mg/20.3 Ml Solution) 650 mg PO Q6H PRN PRN Reason: Fever >101 Last Admin: 08/15/24 13:57 Dose: 650 mg Documented By: SIMI Acetaminophen (Acetaminophen 325 Mg Tablet) 650 mg PO Q6H PRN PRN Reason: Pain, Mild 1-3,fever,headache Last Admin: 08/23/24 12:07 Dose: 650 mg Documented By: CONSUELO Amlodipine Besylate (Amlodipine Besylate 5 Mg Tablet) 5 mg PO DAILY [facility]; Protocol Last Admin: 08/23/24 08:37 Dose: 5 mg Documented By: CONSUELO Enoxaparin Sodium (Enoxaparin Sodium 40 Mg/0.4 Ml Syringe) 40 mg SUBCUT Q24H [facility] Last Admin: 08/21/24 13:14 Dose: Not Given Documented By: BRIANA Non-Admin Reason: Physician Held Med Folic Acid (Folic Acid 1 Mg Tablet) 1 mg PO DAILY [facility] Last Admin: 08/23/24 08:35 Dose: 1 mg Documented By: CONSUELO Ketorolac Tromethamine (Ketorolac Tromethamine 15 Mg/Ml Vial) 15 mg IM Q6H PRN PRN Reason: Pain, Moderate(Pain Scale 4-6) Levetiracetam (Levetiracetam 500 Mg Tablet) 500 mg PO BID [facility] Last Admin: 08/23/24 08:36 Dose: 500 mg Documented By: CONSUELO Loperamide HCl (Loperamide Hcl 2 Mg Capsule) 2 mg PO Q4H PRN PRN Reason: Diarrhea Last Admin: 08/23/24 12:08 Dose: 2 mg Documented By: CONSUELO Magnesium Oxide (Magnesium Oxide 400 Mg Tablet) [facility] Last Admin: 08/23/24 08:36 Dose: 400 mg Documented By: CONSUELO Metoprolol Succinate (Metoprolol Succinate Er 50 Mg Tab.Er.24h) 50 mg PO DAILY [facility]; Protocol Last Admin: 08/23/24 08:36 Dose: 50 mg Documented By: CONSUELO Morphine Sulfate (Morphine Sulfate 2 Mg/Ml Cartridge) 2 mg IVPUSH Q4H PRN; Protocol PRN Reason: Pain, Severe (Pain Scale 7-10) Last Admin: 08/23/24 12:07 Dose: 2 mg Documented By: CONSUELO Nicotine (Nicotine 14 Mg Patch.Td24) 14 mg TRANSDERMA DAILY [facility] Last Admin: 08/23/24 08:35 Dose: 14 mg Documented By: CONSUELO Omeprazole (Omeprazole 40 Mg Capsule.Dr) 40 mg PO BID@0630,1630 [facility] Last Admin: 08/23/24 05:50 Dose: 40 mg Documented By: PARRISH Prednisone (Prednisone 20 Mg Tablet) 40 mg PO DAILY [facility] Last Admin: 08/23/24 08:37 Dose: 40 mg Documented By: CONSUELO Sodium Chloride (0.9 % Sodium Chloride Flush 3 Ml Syringe) 3 ml IVFLUSH [facility] Last Admin: 08/23/24 08:20 Dose: 3 ml Documented By: CONSUELO Sodium Chloride (0.9 % Sodium Chloride Flush 10 Ml Syringe) 5 ml IVFLUSH [facility] Last Admin: 08/23/24 08:20 Dose: 5 ml Documented By: CONSUELO Thiamine HCl (Thiamine Hcl 100 Mg Tablet) 100 mg PO DAILY [facility] Last Admin: 08/23/24 08:37 Dose: 100 mg Documented By: BHARGAVCIAV Vancomycin HCl (Vancomycin Hcl 125 Mg Capsule) 125 mg PO Q6H [facility] Last Admin: 08/23/24 12:08 Dose: 125 mg Documented By: CONSUELO Labs 08/23/24 05:19 08/23/24 05:19 Labs: Laboratory Results - last 24 hr 08/22/24 08/23/24 08/23/24 06:47 05:19 05:19 MCV 101.7 H MCH 34.3 H MCHC 33.7 RDW 16.4 H Plt Count 483 H MPV 10.5 Immature Gran % (Auto) 1.0 H Neut % (Auto) 76.9 H Lymph % (Auto) 13.1 L Saline % (Auto) 8.3 Eos % (Auto) 0.5 Baso % (Auto) 0.2 Lymph # (Auto) 1.8 Saline # (Auto) 1.1 Eos # (Auto) 0.1 Baso # (Auto) 0.0 Abs Immat Gran (auto) 0.13 H Absolute Neuts (auto) 10.3 H Absolute Nucleated RBC 0.000 Nucleated RBC % (auto) 0.0 Anion Gap Cancelled 13 Estim Creat Clear Calc Cancelled Estimated GFR Random Glucose Calcium Phosphorus Magnesium 1.4 L* Total Bilirubin AST ALT Alkaline Phosphatase Total Protein Albumin 08/23/24 08/23/24 08/23/24 05:19 05:19 05:19 MCV MCH MCHC RDW Plt Count MPV Immature Gran % (Auto) Neut % (Auto) Lymph % (Auto) Saline % (Auto) Eos % (Auto) Baso % (Auto) Lymph # (Auto) Saline # (Auto) Eos # (Auto) Baso # (Auto) Abs Immat Gran (auto) Absolute Neuts (auto) Absolute Nucleated RBC Nucleated RBC % (auto) Anion Gap Estim Creat Clear Calc 132.6 Estimated GFR Cancelled > 60 Random Glucose Cancelled 96 Calcium Cancelled Phosphorus Magnesium Total Bilirubin AST ALT Alkaline Phosphatase Total Protein Albumin 08/23/24 05:19 MCV MCH MCHC RDW Plt Count MPV Immature Gran % (Auto) Neut % (Auto) Lymph % (Auto) Saline % (Auto) Eos % (Auto) Baso % (Auto) Lymph # (Auto) Saline # (Auto) Eos # (Auto) Baso # (Auto) Abs Immat Gran (auto) Absolute Neuts (auto) Absolute Nucleated RBC Nucleated RBC % (auto) Anion Gap Estim Creat Clear Calc Estimated GFR Random Glucose Calcium 7.9 L D Phosphorus 3.8 Magnesium 1.2 L* Total Bilirubin 0.5 AST 40 H ALT 27 Alkaline Phosphatase 198 H Total Protein 5.9 L Albumin 2.6 L Assessment and Plan (1) Dislocation of shoulder, right, closed: Status: Acute (2) C. difficile diarrhea: Status: Acute (3) Pulmonary aspiration: Status: Acute (4) Acute respiratory failure with hypoxia: Status: Acute Plan 54F PMH alcohol dependence presented on 08/06/2024 with mechanical fall and delirium tremens complicated by right shoulder fracture requiring ICU admission and Precedex complicated by hypotension and anemia, went on to develop sepsis due to pneumonia. Patient was weaned off Precedex and downgraded to medical floor on 08/14/2024 Mechanical fall complicated by right shoulder fracture Follow up Orthopedics once resp status better - sling RUE, NWB RUE POD 1 post OR reduction by Ortho PT eval Sepsis and acute hypoxic respiratory failure secondary to pneumonia from aspiration no fever overnight Sputum culture grew E coli, negative pulm panel Finished 1 week of Abx, discontinue continue Steroids , switched to PO, taper down Wean O2 as tolerated - still needing high flow acute hypokalemia and hpyomagnesemia K 2.9, Mg 1.3 replace IV and PO and monitor Swallowing problem [employer] rec regular diet Alcohol dependence with acute metabolic encephalopathy and delirium tremens complicated by cardiogenic shock requiring ICU admission with Precedex and pressors Delirium tremens resolved Encephalopathy significantly improved Off pressors, CIWA discontinued switch Folic acid and Thiamin to PO recovery team to follow C.Diff diarrhea Tested positive for Toxin Gene PO Vancomycin Q6 Imodium as needed Acute on chronic anemia Likely inflammatory, transfused 1 unit PRBC 08/15/24 hgb improved acute hypernatremia improved, monitor BMP DVT prophylaxis with Lovenox Full Code reason for continued hospitalization: Weaning down O2, PT evaluation, correcting Electrolytes Quality Stroke Does the patient have a stroke diagnosis?: No VTE Prior VTE?: No VTE Risk Level:: Medical - moderate - high VTE Device Contraindication: Treatment Not Indicated VTE Drug Contraindication: N/A - Med Ordered
--- NOTE | 2024-08-23 14:55 | MHC.CM.PN ---
Per rounds, pt. will be ready to go to [facility] tomorrow, referrals expanded and updated, none accepting yet.
--- NOTE | 2024-08-23 15:01 | MHC.SLORD ---
Speech Language Pathology Order Status: Pt endorsed feeling nausea today, RN aware, providing pt with care, options for medications. Pt refused. Pt requested gingerale, said he will not eat his lunch today. Pt has resumed regular diet with thin liquids, TEAM GUIDE to check pt tolerance of regular consistencies x1.
[2024-08-23 15:18] LABS: Anion Gap 12 (12-20); Blood Urea Nitrogen 9 mg/dL (9-16); Calcium 8.1 mg/dL (8.4-10.2); Carbon Dioxide 23 mmol/L (22-29); Chloride 105 mmol/L (96-108); Creatinine Clr Calc Pharmacy 120.7; Estimated Glomerular Filt Rate > 60; Glucose Random 172 mg/dL (60-115); Magnesium 1.7 mg/dL (1.6-2.6); Potassium 4.3 mmol/L (3.3-5.1); Sodium 136 mmol/L (135-145)
[2024-08-23 16:00] VITALS: BP 131/64; PULSE 91; RESP 16; TEMP 37; O2SAT 98
[2024-08-23 19:34] VITALS: BP 163/83; PULSE 87; RESP 20; TEMP 37.7; O2SAT 96
[2024-08-23 23:50] VITALS: BP 172/81; PULSE 78; RESP 19; TEMP 37.1; O2SAT 97
[2024-08-24] MEDS: vancomycin HCL 125 MG CAPSULE PO ×4 (05:45→21:07)
[2024-08-24] MEDS: Omeprazole 40 MG CAPSULE.DR PO ×2 (05:45→15:33)
[2024-08-24 06:30] LABS: MANUAL DIFF FLAG NO
[2024-08-24 06:33] LABS: Basophils Percent Auto 0.2 % (0-2); Eosinophils Absolute Auto 0.1 X10*3/uL (0.0-0.4); Eosinophils Percent Auto 0.6 % (0-4); Hematocrit 26.3 % (42.0-52.0); Hemoglobin 8.9 g/dl (14.0-18.0); Imm Gran Abs Auto 0.15 X10*3/uL (0.00-0.03); Imm Gran Pct Auto 1.1 % (0.0-0.4); Lymphocytes Percent Auto 14.9 % (20-40); Mean Corpuscular HGB Conc 33.8 g/dl (31.0-36.0); Mean Corpuscular Hemoglobin 34.4 pg (27.0-33.0); Mean Corpuscular Volume 101.5 fL (80.0-98.0); Mean Platelet Volume 10.3 fL (9.4-12.4); Monocytes Absolute Auto 1.2 X10*3/uL (0.1-1.2); Monocytes Percent Auto 8.9 % (2-11); Neutrophils Absolute Auto 9.8 x10*3/uL (2.0-8.3); Neutrophils Percent Auto 74.3 % (45-73); Platelet Count 524 X10*3/uL (160-400); Red Blood Count 2.59 X10*6/uL (4.60-5.80); Red Cell Distribution Width 16.2 % (11.0-16.0); White Blood Count 13.1 X10*3/uL (4.8-10.8)
[2024-08-24 06:52] LABS: Anion Gap 12 (12-20); Blood Urea Nitrogen 8 mg/dL (9-16); Calcium 8.1 mg/dL (8.4-10.2); Carbon Dioxide 23 mmol/L (22-29); Chloride 104 mmol/L (96-108); Creatinine Clr Calc Pharmacy 139.5; Estimated Glomerular Filt Rate > 60; Glucose Random 98 mg/dL (60-115); Potassium 3.2 mmol/L (3.3-5.1); Sodium 136 mmol/L (135-145)
[2024-08-24 06:53] LABS: Alanine Aminotransferase 25 U/L (0-40); Albumin Level 2.6 g/dL (3.5-5.0); Alkaline Phosphatase 186 U/L (39-117); Anion Gap 12 (12-20); Aspartate Amino Transferase 33 U/L (5-37); Bilirubin Total 0.5 mg/dL (0.0-1.0); Blood Urea Nitrogen 8 mg/dL (9-16); Calcium 8.1 mg/dL (8.4-10.2); Carbon Dioxide 23 mmol/L (22-29); Chloride 105 mmol/L (96-108); Creatinine Clr Calc Pharmacy 149.8; Estimated Glomerular Filt Rate > 60; Glucose Random 99 mg/dL (60-115); Phosphorus 2.8 mg/dL (2.7-4.5); Potassium 3.2 mmol/L (3.3-5.1); Sodium 137 mmol/L (135-145); Total Protein 5.8 g/dL (6.5-8.0)
[2024-08-24 07:04] VITALS: BP 160/76; PULSE 85; RESP 20; TEMP 37.1; O2SAT 95
[2024-08-24 07:27] LABS: Magnesium 1.3 mg/dL (1.6-2.6)
[2024-08-24] MEDS: predniSONE 10 MG TABLET 30 MG PO (08:04)
[2024-08-24] MEDS: amLODIPine Besylate 5 MG TABLET PO (08:04)
[2024-08-24] MEDS: Thiamine HCL 100 MG TABLET PO (08:05)
[2024-08-24] MEDS: levETIRAcetam 500 MG TABLET PO ×2 (08:05→21:07)
[2024-08-24] MEDS: Nicotine 14 MG PATCH.TD24 TRANSDERMA (08:05)
[2024-08-24] MEDS: Magnesium Oxide 400 MG TABLET PO ×2 (08:05→17:19)
[2024-08-24] MEDS: Metoprolol Succinate ER 50 MG TAB.ER.24H PO (08:05)
[2024-08-24] MEDS: Folic Acid 1 MG TABLET PO (08:05)
[2024-08-24 08:09] VITALS: RESP 18
[2024-08-24] MEDS: Morphine Sulfate 2 MG/ML CARTRIDGE IVPUSH ×3 (08:09→21:12)
[2024-08-24] MEDS: 0.9 % Sodium Chloride Flush 10 ML SYRINGE 5 ML IVFLUSH (08:16)
[2024-08-24] MEDS: 0.9 % Sodium Chloride Flush 3 ML SYRINGE IVFLUSH ×3 (08:16→23:59)
[2024-08-24] MEDS: Magnesium Sulfate/H2O 2 GM/50 ML PIGGYBACK IV ×2 (08:41→11:32)
[2024-08-24] MEDS: Ketorolac Tromethamine 15 MG/ML VIAL IM (11:32)
[2024-08-24] MEDS: Loperamide HCl 2 MG CAPSULE PO (11:32)
--- NOTE | 2024-08-24 11:34 | HO.PM.IMPN ---
Subjective Subjective Date of Service: 08/24/24 Interval History: seen and evaluated alert and interactive tolerating diet Low Mg level improved diarrhea Review of Systems Review of Systems: Yes all other systems are reviewed and are negative Physical Exam Vital Signs: Vital Signs: Last Vital Signs Temp 98.7 F 08/24/24 07:04 Pulse 85 08/24/24 07:04 Resp 18 08/24/24 08:09 BP 160/76 H 08/24/24 07:04 Pulse Ox 95 08/24/24 07:04 O2 Del Method Room Air 08/24/24 07:04 O2 Flow Rate 6 08/22/24 15:20 FiO2 93 08/20/24 07:23 BMI result Body Mass Index 22.2 Const: Other: Constitutional : Awake, interactive, not in distress Neck : Normal inspection, Supple Cardiovascular : RRR, no JVP, no lower extremity edema Respiratory : good bilateral air entry, fine crackles, wheezes or rhonchi, on RA Gastrointestinal: soft, lax, Normal bowel sounds, Non tender extremities: RUE in sling post op, wound covered with dressing Skin : Warm, Dry Neurological : Alert & oriented x3, No focal deficit Objective Data Active Medications Acetaminophen (Acetaminophen Oral Liquid 650 Mg/20.3 Ml Solution) 650 mg PO Q6H PRN PRN Reason: Fever >101 Last Admin: 08/15/24 13:57 Dose: 650 mg Documented By: SIMI Acetaminophen (Acetaminophen 325 Mg Tablet) 650 mg PO Q6H PRN PRN Reason: Pain, Mild 1-3,fever,headache Last Admin: 08/23/24 12:07 Dose: 650 mg Documented By: CONSUELO Amlodipine Besylate (Amlodipine Besylate 5 Mg Tablet) 5 mg PO DAILY [facility]; Protocol Last Admin: 08/24/24 08:04 Dose: 5 mg Documented By: LISANDRA Enoxaparin Sodium (Enoxaparin Sodium 40 Mg/0.4 Ml Syringe) 40 mg SUBCUT Q24H [facility] Last Admin: 08/21/24 13:14 Dose: Not Given Documented By: BRIANA Non-Admin Reason: Physician Held Med Folic Acid (Folic Acid 1 Mg Tablet) 1 mg PO DAILY [facility] Last Admin: 08/24/24 08:05 Dose: 1 mg Documented By: LISANDRA Magnesium Sulfate (Magnesium Sulfate/H2o) 2 gm in 50 mls @ 25 mls/hr IV Q4H [facility] Stop: 08/24/24 14:29 Last Admin: 08/24/24 11:32 Dose: 25 mls/hr Documented By: LISANDRA Ketorolac Tromethamine (Ketorolac Tromethamine 15 Mg/Ml Vial) 15 mg IM Q6H PRN PRN Reason: Pain, Moderate(Pain Scale 4-6) Last Admin: 08/24/24 11:32 Dose: 15 mg Documented By: LISANDRA Levetiracetam (Levetiracetam 500 Mg Tablet) 500 mg PO BID [facility] Last Admin: 08/24/24 08:05 Dose: 500 mg Documented By: LISANDRA Loperamide HCl (Loperamide Hcl 2 Mg Capsule) 2 mg PO Q4H PRN PRN Reason: Diarrhea Last Admin: 08/24/24 11:32 Dose: 2 mg Documented By: LISANDRA Magnesium Oxide (Magnesium Oxide 400 Mg Tablet) [facility] Last Admin: 08/24/24 08:05 Dose: 400 mg Documented By: LISANDRA Metoprolol Succinate (Metoprolol Succinate Er 50 Mg Tab.Er.24h) 50 mg PO DAILY [facility]; Protocol Last Admin: 08/24/24 08:05 Dose: 50 mg Documented By: LISANDRA Morphine Sulfate (Morphine Sulfate 2 Mg/Ml Cartridge) 2 mg IVPUSH Q4H PRN; Protocol PRN Reason: Pain, Severe (Pain Scale 7-10) Last Admin: 08/24/24 08:09 Dose: 2 mg Documented By: LISANDRA Nicotine (Nicotine 14 Mg Patch.Td24) 14 mg TRANSDERMA DAILY [facility] Last Admin: 08/24/24 08:05 Dose: 14 mg Documented By: LISANDRA Omeprazole (Omeprazole 40 Mg Capsule.Dr) 40 mg PO BID@0630,1630 [facility] Last Admin: 08/24/24 05:45 Dose: 40 mg Documented By: PARRISH Prednisone (Prednisone 10 Mg Tablet) 30 mg PO DAILY [facility] Last Admin: 08/24/24 08:04 Dose: 30 mg Documented By: LISANDRA Sodium Chloride (0.9 % Sodium Chloride Flush 3 Ml Syringe) 3 ml IVFLUSH QSHIFT [facility] Last Admin: 08/24/24 08:16 Dose: 3 ml Documented By: LISANDRA Sodium Chloride (0.9 % Sodium Chloride Flush 10 Ml Syringe) 5 ml IVFLUSH QSHIFT [facility] Last Admin: 08/24/24 08:16 Dose: 5 ml Documented By: LISANDRA Thiamine HCl (Thiamine Hcl 100 Mg Tablet) 100 mg PO DAILY [facility] Last Admin: 08/24/24 08:05 Dose: 100 mg Documented By: LISANDRA Vancomycin HCl (Vancomycin Hcl 125 Mg Capsule) 125 mg PO Q6H [facility] Last Admin: 08/24/24 10:48 Dose: 125 mg Documented By: LISANDRA Labs 08/24/24 05:40 08/24/24 05:40 Labs: Laboratory Results - last 24 hr 08/23/24 08/24/24 08/24/24 14:25 05:40 05:40 MCV 101.5 H MCH 34.4 H MCHC 33.8 RDW 16.2 H Plt Count 524 H MPV 10.3 Immature Gran % (Auto) 1.1 H Neut % (Auto) 74.3 H Lymph % (Auto) 14.9 L [place] % (Auto) 8.9 Eos % (Auto) 0.6 Baso % (Auto) 0.2 Lymph # (Auto) 2.0 [place] # (Auto) 1.2 Eos # (Auto) 0.1 Baso # (Auto) 0.0 Abs Immat Gran (auto) 0.15 H Absolute Neuts (auto) 9.8 H Absolute Nucleated RBC 0.000 Nucleated RBC % (auto) 0.0 Anion Gap 12 12 12 Estim Creat Clear Calc 120.7 149.8 Estimated GFR > 60 Random Glucose 172 H Calcium 8.1 L Phosphorus Magnesium 1.7 Total Bilirubin AST ALT Alkaline Phosphatase Total Protein Albumin 08/24/24 08/24/24 08/24/24 05:40 05:40 05:40 MCV MCH MCHC RDW Plt Count MPV Immature Gran % (Auto) Neut % (Auto) Lymph % (Auto) [place] % (Auto) Eos % (Auto) Baso % (Auto) Lymph # (Auto) [place] # (Auto) Eos # (Auto) Baso # (Auto) Abs Immat Gran (auto) Absolute Neuts (auto) Absolute Nucleated RBC Nucleated RBC % (auto) Anion Gap Estim Creat Clear Calc 139.5 Estimated GFR > 60 > 60 Random Glucose 99 98 Calcium 8.1 L Phosphorus Magnesium Total Bilirubin AST ALT Alkaline Phosphatase Total Protein Albumin 08/24/24 05:40 MCV MCH MCHC RDW Plt Count MPV Immature Gran % (Auto) Neut % (Auto) Lymph % (Auto) [place] % (Auto) Eos % (Auto) Baso % (Auto) Lymph # (Auto) [place] # (Auto) Eos # (Auto) Baso # (Auto) Abs Immat Gran (auto) Absolute Neuts (auto) Absolute Nucleated RBC Nucleated RBC % (auto) Anion Gap Estim Creat Clear Calc Estimated GFR Random Glucose Calcium 8.1 L Phosphorus 2.8 Magnesium 1.3 L* Total Bilirubin 0.5 AST 33 ALT 25 Alkaline Phosphatase 186 H Total Protein 5.8 L Albumin 2.6 L Assessment and Plan (1) Dislocation of shoulder, right, closed: Status: Acute (2) C. difficile diarrhea: Status: Acute (3) Pulmonary aspiration: Status: Acute (4) Acute respiratory failure with hypoxia: Status: Acute (5) Delirium tremens: Status: Acute Plan 54F H alcohol dependence presented on 08/06/2024 with mechanical fall and delirium tremens complicated by right shoulder fracture requiring ICU admission and Precedex complicated by hypotension and anemia, went on to develop sepsis due to pneumonia. Patient was weaned off Precedex and downgraded to medical floor on 08/14/2024 Mechanical fall complicated by right shoulder fracture Follow up Orthopedics once resp status better - sling RUE, NWB RUE POD 2 post OR reduction by Ortho Toradol, Tylenol for pain PRN Oxycodone added for sever pain PT eval Sepsis and acute hypoxic respiratory failure secondary to pneumonia from aspiration no fever overnight Sputum culture grew E coli, negative pulm panel Finished 1 week of Abx, discontinue continue Steroids , switched to PO, taper down 30 mg now acute hypokalemia and hpyomagnesemia K 3, Mg 1.3 replace IV and PO and monitor 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 Alcohol dependence with acute metabolic encephalopathy and delirium tremens complicated by cardiogenic shock requiring ICU admission with Precedex and pressors Delirium tremens resolved Encephalopathy significantly improved Off pressors, CIWA discontinued switch Folic acid and Thiamin to PO recovery team to follow C.Diff diarrhea Tested positive for Toxin Gene PO Vancomycin Q6 Imodium as needed Acute on chronic anemia Likely inflammatory, transfused 1 unit PRBC 08/15/24 hgb improved acute hypernatremia improved, monitor BMP DVT prophylaxis with Lovenox Full Code reason for continued hospitalization: Weaning down O2, PT evaluation, correcting Electrolytes Quality Stroke Does the patient have a stroke diagnosis?: No VTE Prior VTE?: No VTE Risk Level:: Medical - moderate - high VTE Device Contraindication: Treatment Not Indicated VTE Drug Contraindication: N/A - Med Ordered
[2024-08-24] MEDS: Potassium Chloride Packet 20 MEQ PACKET 40 MEQ PO ×2 (12:08→14:24)
--- NOTE | 2024-08-24 14:13 | MHC.SLORD ---
Speech Language Pathology Order Status: Patient seen this morning at breakfast. Patient awake, alert, pleasantly communicative. Reports that he prefers drinking liuqids only at this time, is taking his liquid supplements. Patient is cleared for least restrictive diet, no indication of dysphagia at this time. Will D/C speech service.
[2024-08-24 15:11] VITALS: BP 131/72; PULSE 85; RESP 16; TEMP 37; O2SAT 98
[2024-08-24 15:21] VITALS: RESP 16
--- NOTE | 2024-08-24 16:43 | P.OP_ITS ---
Operative Note Operative Note Date of Service: 08/22/24 Narrative: Date of Service: 08/22/24 Pre-op diagnosis: Right shoulder fracture/dislocation Post-op diagnosis: same Procedure: Open reduction with removal of loose bodies Implants: none Surgeon: Drake Gonsalez MD Anesthesia: GETA and local Was an Customer Service Representative Teacher used for this Procedure?: Yes Customer Service Representative Teacher: Jenn Dickson Estimated blood loss (mL): 50 IV fluids (mL): 500 Pathology: none sent Condition: stable Disposition: PACU Indications: 54-year-old gentleman with complicated problem. He has a history of alcoholism and seizure disorder with recent delirium tremens. He was in the ICU after a seizure for over 1 week. He only recently was coherent enough to examined and to talk to. He is very confused but did sustain a fracture dislocation with a anatomic head fracture essentially dislocated. He was consented to undergo closed versus open reduction. We had a long discussion regarding treatment options in given his severe seizure disorder and history of alcohol abuse it was clear to me that we should not place any hardware in his shoulder. For a head split fracture like this the definitive treatment would have been a reverse total shoulder arthroplasty but he is not a candidate for this. Procedure in detail: Patient was brought to the operating room placed in the beach chair position and his right upper extremity was prepped and draped in standard sterile fashion. A time-out was called to identify proper site, proper procedure, proper surgeon and IV antibiotics per weight were administered. I began by identifying the anteriorly dislocated humeral head fracture and made a 2 cm incision over this and lateral to the coracoid. Dissection was button the taken down to the capsule and and a capsulotomy was made just superior to the subscapularis. I irrigated copiously and was able to place my finger and here in palpate the anteriorly dislocated humeral head fragments. This was not reducible and I used a large K-wire to remove the largest humeral head fragment. This allowed for a more normal position of the humeral shaft and of the shoulder joint. I irrigated copiously at this point and closed the capsule with a 0 Vicryl. Subcutaneous sutures were used in the skin and hazel were used to finish the closure. Patient was placed in sterile dressing extubated and brought to recovery in stable condition there were no known complications.
[2024-08-24 19:50] VITALS: BP 138/70; PULSE 82; RESP 17; TEMP 37.2; O2SAT 98
[2024-08-24 23:41] VITALS: BP 159/76; PULSE 80; RESP 17; TEMP 37.2; O2SAT 96
[2024-08-25] MEDS: oxyCODONE HCl Immed Release 5 MG TABLET PO ×2 (00:10→17:49)
[2024-08-25 03:33] VITALS: BP 136/62; PULSE 82; RESP 17; TEMP 36.9; O2SAT 96
[2024-08-25] MEDS: vancomycin HCL 125 MG CAPSULE PO ×4 (03:59→21:21)
[2024-08-25] MEDS: Omeprazole 40 MG CAPSULE.DR PO ×2 (06:18→17:28)
[2024-08-25] MEDS: Morphine Sulfate 2 MG/ML CARTRIDGE IVPUSH ×3 (06:21→21:22)
[2024-08-25 06:49] LABS: Alanine Aminotransferase 24 U/L (0-40); Albumin Level 2.6 g/dL (3.5-5.0); Alkaline Phosphatase 179 U/L (39-117); Anion Gap 14 (12-20); Aspartate Amino Transferase 41 U/L (5-37); Bilirubin Total 0.6 mg/dL (0.0-1.0); Blood Urea Nitrogen 7 mg/dL (9-16); Calcium 8.3 mg/dL (8.4-10.2); Carbon Dioxide 19 mmol/L (22-29); Chloride 106 mmol/L (96-108); Creatinine Clr Calc Pharmacy 137.1; Estimated Glomerular Filt Rate > 60; Glucose Random 94 mg/dL (60-115); Magnesium 1.6 mg/dL (1.6-2.6); Phosphorus 3.7 mg/dL (2.7-4.5); Potassium 3.8 mmol/L (3.3-5.1); Sodium 135 mmol/L (135-145); Total Protein 6.2 g/dL (6.5-8.0)
[2024-08-25 07:06] VITALS: BP 126/61; PULSE 88; RESP 18; TEMP 36.9; O2SAT 95
[2024-08-25] MEDS: Magnesium Sulfate/H2O 2 GM/50 ML PIGGYBACK IV (08:03)
[2024-08-25] MEDS: Folic Acid 1 MG TABLET PO (08:20)
[2024-08-25] MEDS: predniSONE 10 MG TABLET 30 MG PO (08:20)
[2024-08-25] MEDS: Thiamine HCL 100 MG TABLET PO (08:20)
[2024-08-25] MEDS: Magnesium Oxide 400 MG TABLET PO ×2 (08:20→17:28)
[2024-08-25] MEDS: Metoprolol Succinate ER 50 MG TAB.ER.24H PO (08:20)
[2024-08-25] MEDS: amLODIPine Besylate 5 MG TABLET PO (08:20)
[2024-08-25] MEDS: 0.9 % Sodium Chloride Flush 3 ML SYRINGE IVFLUSH ×3 (08:20→21:24)
[2024-08-25] MEDS: levETIRAcetam 500 MG TABLET PO ×2 (08:20→21:21)
[2024-08-25] MEDS: Nicotine 14 MG PATCH.TD24 TRANSDERMA (08:25)
--- NOTE | 2024-08-25 08:52 | MHC.CM.PN ---
EMR REVIEWED, PT W/JUANITO SMITH, PT DECLINED BY [facility], [facility] FOLLOWING HOWEVER CM AWAITING BED AVAILABILITY, NO OTHER INTEREST/BED OFFERS, CM WILL CONT TO FOLLOW DC NEEDS.
[2024-08-25 09:52] VITALS: BP 126/61; PULSE 88; O2SAT 95
[2024-08-25] MEDS: Loperamide HCl 2 MG CAPSULE PO (10:35)
--- NOTE | 2024-08-25 10:49 | HO.PM.IMPN ---
Subjective Subjective Date of Service: 08/25/24 Interval History: feeling better Physical Exam Vital Signs: Vital Signs: Last Vital Signs Temp 98.5 F 08/25/24 07:06 Pulse 88 08/25/24 09:52 Resp 18 08/25/24 07:06 BP 126/61 08/25/24 09:52 Pulse Ox 95 08/25/24 09:52 O2 Del Method Room Air 08/25/24 07:06 O2 Flow Rate 6 08/22/24 15:20 FiO2 93 08/20/24 07:23 BMI result Body Mass Index 22.2 Const: Other: Constitutional : Awake, interactive, not in distress Neck : Normal inspection, Supple Cardiovascular : RRR, no JVP, no lower extremity edema Respiratory : good bilateral air entry, fine crackles, wheezes or rhonchi, on RA Gastrointestinal: soft, lax, Normal bowel sounds, Non tender extremities: RUE in sling post op, wound covered with dressing Skin : Warm, Dry Neurological : Alert & oriented x3, No focal deficit Objective Data Active Medications Acetaminophen (Acetaminophen Oral Liquid 650 Mg/20.3 Ml Solution) 650 mg PO Q6H PRN PRN Reason: Fever >101 Last Admin: 08/15/24 13:57 Dose: 650 mg Documented By: SIMI Acetaminophen (Acetaminophen 325 Mg Tablet) 650 mg PO Q6H PRN PRN Reason: Pain, Mild 1-3,fever,headache Last Admin: 08/23/24 12:07 Dose: 650 mg Documented By: CONSUELO Amlodipine Besylate (Amlodipine Besylate 5 Mg Tablet) 5 mg PO DAILY [facility]; Protocol Last Admin: 08/25/24 08:20 Dose: 5 mg Documented By: LISANDRA Enoxaparin Sodium (Enoxaparin Sodium 40 Mg/0.4 Ml Syringe) 40 mg SUBCUT Q24H [facility] Last Admin: 08/21/24 13:14 Dose: Not Given Documented By: BRIANA Non-Admin Reason: Physician Held Med Folic Acid (Folic Acid 1 Mg Tablet) 1 mg PO DAILY [facility] Last Admin: 08/25/24 08:20 Dose: 1 mg Documented By: LISANDRA Ketorolac Tromethamine (Ketorolac Tromethamine 15 Mg/Ml Vial) 15 mg IM Q6H PRN PRN Reason: Pain, Moderate(Pain Scale 4-6) Last Admin: 08/24/24 11:32 Dose: 15 mg Documented By: LISANDRA Levetiracetam (Levetiracetam 500 Mg Tablet) 500 mg PO BID [facility] Last Admin: 08/25/24 08:20 Dose: 500 mg Documented By: LISANDRA Loperamide HCl (Loperamide Hcl 2 Mg Capsule) 2 mg PO Q4H PRN PRN Reason: Diarrhea Last Admin: 08/25/24 10:35 Dose: 2 mg Documented By: LISANDRA Magn[facility] Oxide ([facility] 400 Mg Tablet) [facility] Last Admin: 08/25/24 08:20 Dose: 400 mg Documented By: LISANDRA Metoprolol Succinate (Metoprolol Succinate Er 50 Mg Tab.Er.24h) 50 mg PO DAILY [facility]; Protocol Last Admin: 08/25/24 08:20 Dose: 50 mg Documented By: LISANDRA Morphine Sulfate (Morphine Sulfate 2 Mg/Ml Cartridge) 2 mg IVPUSH Q4H PRN; Protocol PRN Reason: Pain, Severe (Pain Scale 7-10) Last Admin: 08/25/24 10:35 Dose: 2 mg Documented By: LISANDRA Nicotine (Nicotine 14 Mg Patch.Td24) 14 mg TRANSDERMA DAILY [facility] Last Admin: 08/25/24 08:25 Dose: 14 mg Documented By: LISANDRA Omeprazole (Omeprazole 40 Mg Capsule.Dr) 40 mg PO BID@0630,1630 [facility] Last Admin: 08/25/24 06:18 Dose: 40 mg Documented By: PARRISH Oxycodone HCl (Oxycodone Hcl Immed Release 5 Mg Tablet) 5 mg PO Q6H PRN PRN Reason: Pain, Moderate(Pain Scale 4-6) Last Admin: 08/25/24 00:10 Dose: 5 mg Documented By: PARRISH Prednisone (Prednisone 10 Mg Tablet) 30 mg PO DAILY [facility] Last Admin: 08/25/24 08:20 Dose: 30 mg Documented By: LISANDRA Sodium Chloride (0.9 % Sodium Chloride Flush 3 Ml Syringe) 3 ml IVFLUSH QSHIFT [facility] Last Admin: 08/25/24 08:20 Dose: 3 ml Documented By: LISANDRA Sodium Chloride (0.9 % Sodium Chloride Flush 10 Ml Syringe) 5 ml IVFLUSH QSHIFT [facility] Last Admin: 08/25/24 08:23 Dose: Not Given Documented By: LISANDRA Non-Admin Reason: midline removed Thiamine HCl (Thiamine Hcl 100 Mg Tablet) 100 mg PO DAILY [facility] Last Admin: 08/25/24 08:20 Dose: 100 mg Documented By: LISANDRA Vancomycin HCl (Vancomycin Hcl 125 Mg Capsule) 125 mg PO Q6H [facility] Last Admin: 08/25/24 10:35 Dose: 125 mg Documented By: LISANDRA Labs 08/24/24 05:40 08/25/24 06:03 Labs: Laboratory Results - last 24 hr 08/25/24 06:03 Anion Gap 14 Estim Creat Clear Calc 137.1 Estimated GFR > 60 Random Glucose 94 Calcium 8.3 L Phosphorus 3.7 Magnesium 1.6 Total Bilirubin 0.6 AST 41 H ALT 24 Alkaline Phosphatase 179 H Total Protein 6.2 L Albumin 2.6 L Assessment and Plan (1) Dislocation of shoulder, right, closed: Status: Acute (2) C. difficile diarrhea: Status: Acute (3) Pulmonary aspiration: Status: Acute (4) Acute respiratory failure with hypoxia: Status: Acute (5) Delirium tremens: Status: Acute Plan 54F PMH alcohol dependence presented on 08/06/2024 with mechanical fall and delirium tremens complicated by right shoulder fracture requiring ICU admission and Precedex complicated by hypotension and anemia, went on to develop sepsis due to pneumonia. 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 Alcohol dependence with acute metabolic encephalopathy and delirium tremens complicated by cardiogenic shock requiring ICU admission with Precedex and pressors Delirium tremens resolved Encephalopathy significantly improved Off pressors, CIWA discontinued switch Folic acid and Thiamin to PO recovery team to follow C.Diff colonization with diarrhea Tested positive for Toxin Gene PO Vancomycin Q6 Imodium as needed Acute on chronic anemia Likely inflammatory, transfused 1 unit PRBC 08/15/24 hgb improved acute hypernatremia improved DVT prophylaxis with Lovenox Full Code reason for continued hospitalization: safe dispo Quality Stroke Does the patient have a stroke diagnosis?: No VTE Prior VTE?: No VTE Risk Level:: Medical - moderate - high VTE Device Contraindication: Treatment Not Indicated VTE Drug Contraindication: N/A - Med Ordered
--- NOTE | 2024-08-25 10:56 | MHC.CM.PN ---
PT MEDICALLY CLEARED FOR DC TO [facility], [facility] IS ONLY BED OFFER AND PT AGREEABLE FOR FACILITY TO GO FOR INS AUTH HIS PREFERRED SNF [facility] IS UNABLE TO OFFER BED, [facility] FOR BLS TRANSPORT ONCE AUTH RECEIVED. PT EDUCATED ON AND HAS COMPLETED A HCP NAMING HIS BROTHER EPIFANIO SALMERON HIS [facility] AND BROTHER LARRY ASLMERON HIS ALTERNATE, NUMBERS ON FILE. PT RECEIVED EDUCATIONAL HANDOUT AND ORIGINAL COPY, [facility] TO [facility] AND PLACED IN CHART.
[2024-08-25 15:20] VITALS: BP 166/74; PULSE 83; RESP 16; TEMP 37.1; O2SAT 98
[2024-08-25 19:48] VITALS: BP 131/62; PULSE 88; RESP 16; TEMP 37.5; O2SAT 96
[2024-08-26] MEDS: vancomycin HCL 125 MG CAPSULE PO ×3 (03:19→15:57)
[2024-08-26] MEDS: Morphine Sulfate 2 MG/ML CARTRIDGE IVPUSH (03:19)
[2024-08-26] MEDS: 0.9 % Sodium Chloride Flush 3 ML SYRINGE IVFLUSH ×2 (03:29→12:32)
[2024-08-26 03:30] VITALS: BP 139/70; PULSE 80; RESP 17; TEMP 36.9; O2SAT 94
[2024-08-26] MEDS: Omeprazole 40 MG CAPSULE.DR PO ×2 (05:41→15:58)
[2024-08-26 07:44] VITALS: BP 147/73; PULSE 81; RESP 12; TEMP 37.3; O2SAT 96
[2024-08-26 07:58] LABS: Alanine Aminotransferase 26 U/L (0-40); Albumin Level 2.9 g/dL (3.5-5.0); Alkaline Phosphatase 187 U/L (39-117); Anion Gap 12 (12-20); Aspartate Amino Transferase 34 U/L (5-37); Bilirubin Total 0.6 mg/dL (0.0-1.0); Blood Urea Nitrogen 8 mg/dL (9-16); Calcium 8.6 mg/dL (8.4-10.2); Carbon Dioxide 26 mmol/L (22-29); Chloride 103 mmol/L (96-108); Creatinine Clr Calc Pharmacy 128.4; Estimated Glomerular Filt Rate > 60; Glucose Random 92 mg/dL (60-115); Magnesium 1.4 mg/dL (1.6-2.6); Phosphorus 4.3 mg/dL (2.7-4.5); Potassium 3.6 mmol/L (3.3-5.1); Sodium 137 mmol/L (135-145); Total Protein 6.3 g/dL (6.5-8.0)
[2024-08-26] MEDS: Metoprolol Succinate ER 50 MG TAB.ER.24H PO (08:16)
[2024-08-26] MEDS: Magnesium Oxide 400 MG TABLET PO ×2 (08:17→15:58)
[2024-08-26] MEDS: Folic Acid 1 MG TABLET PO (08:17)
[2024-08-26] MEDS: amLODIPine Besylate 5 MG TABLET PO (08:17)
[2024-08-26] MEDS: Thiamine HCL 100 MG TABLET PO (08:17)
[2024-08-26] MEDS: levETIRAcetam 500 MG TABLET PO (08:17)
[2024-08-26] MEDS: predniSONE 10 MG TABLET 30 MG PO (08:17)
[2024-08-26] MEDS: Nicotine 14 MG PATCH.TD24 TRANSDERMA (08:18)
--- NOTE | 2024-08-26 08:41 | P.PNIM_ITS ---
Subjective Subjective Date of Service: 08/26/24 Interval History: feeling better Physical Exam 2 Vital Signs: Vital Signs: Last Vital Signs Temp 99.2 F 08/26/24 07:44 Pulse 81 08/26/24 07:44 Resp 12 08/26/24 07:44 BP 147/73 H 08/26/24 07:44 Pulse Ox 96 08/26/24 07:44 O2 Del Method Room Air 08/26/24 07:44 O2 Flow Rate 6 08/22/24 15:20 FiO2 93 08/20/24 07:23 BMI result Body Mass Index 22.2 Const: Other: Constitutional : Awake, interactive, not in distress Neck : Normal inspection, Supple Cardiovascular : RRR, no JVP, no lower extremity edema Respiratory : good bilateral air entry, fine crackles, wheezes or rhonchi, on RA Gastrointestinal: soft, lax, Normal bowel sounds, Non tender extremities: RUE in sling post op, wound covered with dressing Skin : Warm, Dry Neurological : Alert & oriented x3, No focal deficit Objective Data Active Medications Acetaminophen (Acetaminophen Oral Liquid 650 Mg/20.3 Ml Solution) 650 mg PO Q6H PRN PRN Reason: Fever >101 Last Admin: 08/15/24 13:57 Dose: 650 mg Documented By: SIMI Acetaminophen (Acetaminophen 325 Mg Tablet) 650 mg PO Q6H PRN PRN Reason: Pain, Mild 1-3,fever,headache Last Admin: 08/23/24 12:07 Dose: 650 mg Documented By: CONSUELO Amlodipine Besylate (Amlodipine Besylate 5 Mg Tablet) 5 mg PO DAILY [facility]; Protocol Last Admin: 08/26/24 08:17 Dose: 5 mg Documented By: DEB Enoxaparin Sodium (Enoxaparin Sodium 40 Mg/0.4 Ml Syringe) 40 mg SUBCUT Q24H [facility] Last Admin: 08/21/24 13:14 Dose: Not Given Documented By: BRIANA Non-Admin Reason: Physician Held Med Folic Acid (Folic Acid 1 Mg Tablet) 1 mg PO DAILY [facility] Last Admin: 08/26/24 08:17 Dose: 1 mg Documented By: DEB Magnesium Sulfate (Magnesium Sulfate/H2o) 2 gm in 50 mls @ 25 mls/hr IV ONCE ONE Stop: 08/26/24 10:39 Ketorolac Tromethamine (Ketorolac Tromethamine 15 Mg/Ml Vial) 15 mg IM Q6H PRN PRN Reason: Pain, Moderate(Pain Scale 4-6) Last Admin: 08/24/24 11:32 Dose: 15 mg Documented By: LISANDRA Levetiracetam (Levetiracetam 500 Mg Tablet) 500 mg PO BID [facility] Last Admin: 08/26/24 08:17 Dose: 500 mg Documented By: DEB Loperamide HCl (Loperamide Hcl 2 Mg Capsule) 2 mg PO Q4H PRN PRN Reason: Diarrhea Last Admin: 08/25/24 10:35 Dose: 2 mg Documented By: LISANDRA [facility] ([facility]ide 400 Mg [facility]t) [facility] Last Admin: 08/26/24 08:17 Dose: 400 mg Documented By: DEB Metoprolol Succinate (Metoprolol Succinate Er 50 Mg Tab.Er.24h) 50 mg PO DAILY [facility]; Protocol Last Admin: 08/26/24 08:16 Dose: 50 mg Documented By: DEB Morphine Sulfate (Morphine Sulfate 2 Mg/Ml Cartridge) 2 mg IVPUSH Q4H PRN; Protocol PRN Reason: Pain, Severe (Pain Scale 7-10) Last Admin: 08/26/24 03:19 Dose: 2 mg Documented By: OSMEL Nicotine (Nicotine 14 Mg Patch.Td24) 14 mg TRANSDERMA DAILY [facility] Last Admin: 08/26/24 08:18 Dose: 14 mg Documented By: DEB Omeprazole (Omeprazole 40 Mg Capsule.) 40 mg PO BID@0630,1630 [facility] Last Admin: 08/26/24 05:41 Dose: 40 mg Documented By: OSMEL Oxycodone HCl (Oxycodone Hcl Immed Release 5 Mg Tablet) 5 mg PO Q6H PRN PRN Reason: Pain, Moderate(Pain Scale 4-6) Last Admin: 08/25/24 17:49 Dose: 5 mg Documented By: LAURA Prednisone (Prednisone 10 Mg Tablet) 30 mg PO DAILY [facility] Last Admin: 08/26/24 08:17 Dose: 30 mg Documented By: DEB Sodium Chloride (0.9 % Sodium Chloride Flush 3 Ml Syringe) 3 ml IVFLUSH QSHIFT [facility] Last Admin: 08/26/24 03:29 Dose: 3 ml Documented By: OSMEL Sodium Chloride (0.9 % Sodium Chloride Flush 10 Ml Syringe) 5 ml IVFLUSH QSHIFT [facility] Last Admin: 08/26/24 08:27 Dose: Not Given Documented By: DEB Non-Admin Reason: MIDLINE REMOVED Thiamine HCl (Thiamine Hcl 100 Mg Tablet) 100 mg PO DAILY [facility] Last Admin: 08/26/24 08:17 Dose: 100 mg Documented By: DEB Vancomycin HCl (Vancomycin Hcl 125 Mg Capsule) 125 mg PO Q6H [facility] Last Admin: 08/26/24 08:17 Dose: 125 mg Documented By: DEB Labs 08/24/24 05:40 08/26/24 06:24 Labs: Laboratory Results - last 24 hr 08/26/24 08/26/24 06:24 06:25 Hold Purple Top SEE NOTE Anion Gap 12 Estim Creat Clear Calc 128.4 Estimated GFR > 60 Random Glucose 92 Calcium 8.6 Phosphorus 4.3 Magnesium 1.4 L* Total Bilirubin 0.6 AST 34 ALT 26 Alkaline Phosphatase 187 H Total Protein 6.3 L Albumin 2.9 L Assessment and Plan (1) Dislocation of shoulder, right, closed: Status: Acute (2) C. difficile diarrhea: Status: Acute (3) Pulmonary aspiration: Status: Acute (4) Acute respiratory failure with hypoxia: Status: Acute (5) Delirium tremens: Status: Acute Plan 54F PMH alcohol dependence presented on 08/06/2024 with mechanical fall and delirium tremens complicated by right shoulder fracture requiring ICU admission and Precedex complicated by hypotension and anemia, went on to develop sepsis due to pneumonia. 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 Alcohol dependence with acute metabolic encephalopathy and delirium tremens complicated by cardiogenic shock requiring ICU admission with Precedex and pressors Delirium tremens resolved Encephalopathy significantly improved Off pressors, CIWA discontinued switch Folic acid and Thiamin to PO recovery team to follow C.Diff colonization with diarrhea Tested positive for Toxin Gene PO Vancomycin Q6 Imodium as needed Acute on chronic anemia Likely inflammatory, transfused 1 unit PRBC 08/15/24 hgb improved acute hypernatremia improved DVT prophylaxis with Lovenox Full Code reason for continued hospitalization: safe dispo Quality Stroke Does the patient have a stroke diagnosis?: No VTE Prior VTE?: No VTE Risk Level:: Medical - moderate - high VTE Device Contraindication: Treatment Not Indicated VTE Drug Contraindication: N/A - Med Ordered
--- NOTE | 2024-08-26 08:49 | PM.DS ---
DS: Providers Provider Date of Service: 08/26/24 Date of admission: 08/06/24 10:01 Date of discharge: 08/26/24 Primary care physician: None Physician Consults: 08/06/24 07:59 Consult to Orthopedics Stat Consulting Provider: [facility] Reason for consultation: fx shoulder right Has provider been notified: Yes 08/07/24 16:20 Consult to Orthopedics Routine Consulting Provider: [facility] [place] [facility] Reason for consultation: right shoulder dislocation Has provider been notified: No 08/11/24 15:08 Consult to Psychiatry Routine Consulting Provider: [facility] [place] [facility] Reason for consultation: h/o psych issues sleeping all day- waking up all night, not talking to any1 DS: Diagnosis Discharge Diagnosis (1) Dislocation of shoulder, right, closed: Status: Acute (2) C. difficile diarrhea: Status: Acute (3) Pulmonary aspiration: Status: Acute (4) Acute respiratory failure with hypoxia: Status: Acute (5) Delirium tremens: Status: Acute DS: Summary Hospital Course Hospital Course: from initial hpi: 54-year-old gentleman with underlying alcohol abuse admitted with delirium tremens after suffering a mechanical fall that right shoulder fracture. Patient requiring initiation Precedex drip and admission to the intensive care unit for close monitoring. Orthopedic service has been consulted. hospital course: Patient was admitted for mechanical fall and delirium tremens complicated by right shoulder fracture that required ICU admission for Precedex further complicated by hypotension and anemia then developed sepsis due to pneumonia. Was eventually weaned off of Precedex and downgraded to medical floor on 08/14/2024. For his sepsis and acute hypoxic respiratory failure secondary to pneumonia from aspiration he was treated with course of antibiotics to cover E coli which grew in the sputum and given course of steroids which he will continue 5 more days of prednisone 10 mg on discharge. Eventually weaned off of high-flow to room air, sepsis resolved. Was seen by speech and diet eventually upgraded to least restrictive. For mechanical fall complicated by right shoulder fracture underwent reduction in the OR by Orthopedics on 08/22/2024. Should follow up outpatient with them. Course complicated by acute hypokalemia and hypomagnesemia and hypernatremia which have all resolved. For alcohol dependence with acute metabolic encephalopathy and delirium tremens complicated by cardiogenic shock requiring Precedex and pressors was seen by recovery team and is now back to baseline we will continue folic acid and thiamine supplement. Patient had diarrhea which tested positive for C diff PCR, negative for toxin likely colonization but will complete vancomycin treatment empirically. Acute on chronic anemia likely inflammatory received 1 unit PRBC and hemoglobin improved appropriately. Patient is feeling better but deconditioned due to prolonged hospital stay and will be discharged to [facility] facility for short-term rehab. Patient expected require less than 30 days. Time Attestation Discharge Coordination Time (in mins): 37 Quality: Safe Use of Opioids Does Pt have an Active Cancer Diagnosis on the Problem List?: No Quality: Stroke Does the patient have a stroke diagnosis?: No Physical Exam Vital Signs: Vital Signs: Last Vital Signs Temp 99.2 F 08/26/24 07:44 Pulse 81 08/26/24 07:44 Resp 12 08/26/24 07:44 BP 147/73 H 08/26/24 07:44 Pulse Ox 96 08/26/24 07:44 O2 Del Method Room Air 08/26/24 07:44 O2 Flow Rate 6 08/22/24 15:20 FiO2 93 08/20/24 07:23 BMI result Body Mass Index 22.2 Const: Other: Constitutional : Awake, interactive, not in distress Neck : Normal inspection, Supple Cardiovascular : RRR, no JVP, no lower extremity edema Respiratory : good bilateral air entry, fine crackles, wheezes or rhonchi, on RA Gastrointestinal: soft, lax, Normal bowel sounds, Non tender extremities: RUE in sling post op, wound covered with dressing Skin : Warm, Dry Neurological : Alert & oriented x3, No focal deficit DS: Data Data Completed and Pending Completed studies during hospitalization [Text1]: Procedures Detoxification Services for Substance Abuse Treatment (02/17/24) Labs on day of discharge: Laboratory Results - last 24 hr 08/26/24 08/26/24 06:24 06:25 Hold Purple Top SEE NOTE Sodium 137 Potassium 3.6 Chloride 103 Carbon Dioxide 26 Anion Gap 12 BUN 8 L Creatinine 0.63 Estim Creat Clear Calc 128.4 Estimated GFR > 60 Random Glucose 92 Calcium 8.6 Phosphorus 4.3 Magnesium 1.4 L* Total Bilirubin 0.6 AST 34 ALT 26 Alkaline Phosphatase 187 H Total Protein 6.3 L Albumin 2.9 L Discharge Plan Discharge Anticipated Discharge Date/Time: 08/26/24 08:43 Patient Disposition: Xfer SNF Discharge Diagnosis: Dts, cdif, Referrals: [facility] [Other] - 1 Week (SHORT TERM REHAB) Jenn Dickson PA-C [Physician [facility]] - 08/30/24 11:30 am (08/30/24 at 11:30) Physician,None [Primary Care Provider] - 1 Week Discharge Medications: New prednisone 10 mg Tablet 10 mg PO DAILY 5 Days Qty: 0 0RF nicotine 14 mg/24 hr Patch 24 Hour 14 mg transdermal DAILY Qty: 0 0RF metoprolol succinate 50 mg Tablet Extended Release 24 Hr 50 mg PO DAILY Qty: 0 0RF Protocol: Hold for SBP/HR < HOLD for SBP < : 90 HOLD for HR < : 60 levetiracetam 500 mg Tablet 500 mg PO BID Qty: 0 0RF amlodipine 5 mg Tablet 5 mg PO DAILY Qty: 0 0RF Protocol: Hold for SBP< HOLD for SBP < : 90 omeprazole 40 mg Capsule,Delayed Release(Dr/Ec) 40 mg PO DAILY Qty: 0 0RF vancomycin 125 mg Capsule 125 mg PO Q6H 7 Days Qty: 0 0RF magnesium oxide 400 mg (241.3 mg magnesium) Tablet 400 mg PO BIDPC Qty: 0 0RF folic acid 1 mg Tablet 1 mg PO DAILY Qty: 0 0RF oxycodone 5 mg Tablet 5 mg PO Q6H PRN (Reason: Pain, Moderate(Pain Scale 4-6)) 10 Days Qty: 10 0RF Rx Instructions: Partial Fill upon patient request. thiamine mononitrate (vit B1) 100 mg Tablet 100 mg PO DAILY Qty: 0 0RF Discharge Orders: Discharge Order (Routine); Ordered 08/26/24 Ordered By: Fer Schulte Diet: Advance to usual diet Activity on Discharge: Use Splints or Immobilizers Stand Alone Forms: Patient Portal Discharge page Print Language: Unable To Collect Activity Restrictions/Additional Instructions: NWB RUE Sling for comfort Gentle ROM Encourage ROM of the elbow hand and wrist 1 week f/u with orthopedics out patient Care Plan Goals: recovery Health Concerns: shoulder fracture Plan of Treatment: rehab Assessment: see above Discharge Date/Time: 08/26/24 16:43
[2024-08-26] MEDS: Magnesium Sulfate/H2O 2 GM/50 ML PIGGYBACK IV (09:16)
[2024-08-26] MEDS: HYDROmorphone HCl 1 MG/ML SYRINGE IVPUSH (12:30)
[2024-08-26] MEDS: oxyCODONE HCl Immed Release 5 MG TABLET PO (14:01)
[2024-08-26 16:00] VITALS: BP 127/62; PULSE 87; RESP 12; TEMP 36.9; O2SAT 97
== END 2024-08-26 16:43 | disposition skilled nursing facility (03) | DRG 315 ==
LOC: HO.ED 09:41 → HO.EDOVER 10:01 → HO.ICU 10:38 → HO.IMC 08-14 16:24
PROVIDERS: Emergency Medicine; Internal Medicine Critical Care Medicine; Orthopaedic Surgery; Physician Assistant Medical; Registered Nurse Community Health; Student in an Organized Health Care Education/Training Program; Admitting Provider Internal Medicine Pulmonary Disease; Emergency Provider Internal Medicine; Visit Provider Internal Medicine
DX: S42.211A Unspecified displaced fracture of surgical neck of right humerus, initial encounter for closed fracture (principal); R57.0 Cardiogenic shock; J96.01 Acute respiratory failure with hypoxia; J69.0 Pneumonitis due to inhalation of food and vomit; A41.9 Sepsis, unspecified organism; G93.41 Metabolic encephalopathy; A04.72 Enterocolitis due to Clostridium difficile, not specified as recurrent; F10.231 Alcohol dependence with withdrawal delirium; B96.20 Unspecified Escherichia coli [E. coli] as the cause of diseases classified elsewhere; K70.9 Alcoholic liver disease, unspecified; E87.6 Hypokalemia; E66.3 Overweight; R13.10 Dysphagia, unspecified; E87.0 Hyperosmolality and hypernatremia; Z68.26 Body mass index [BMI] 26.0-26.9, adult; W19.XXXA Unspecified fall, initial encounter; D52.9 Folate deficiency anemia, unspecified; I25.10 Atherosclerotic heart disease of native coronary artery without angina pectoris; Z20.822 Contact with and (suspected) exposure to COVID-19
CPT/HCPCS: 36410; 36415; 36600; 70450; 71045; 72125; 73030; 80048; 80053; 80202; 80307; 82040; 82140; 82248; 82272; 82607; 82746; 82803; 82947; 83605; 83735; 83880; 84100; 84145; 84478; 84484; 85007; 85014; 85018; 85025; 85027; 86140; 86850; 86900; 86901; 86923; 87040; 87070; 87077; 87186; 87205; 87324; 87493; 87633; 92526; 92610; 93005; 94640; 97162; 97167; 97530; 97535; 99285; J0131; J0295; J0613; J0696; J1100; J1171; J1642; J1644; J1650; J1885; J1920; J1953; J2003; J2060; J2250; J2270; J2371; J2405; J2470; J2543; J2560; J2704; J2795; J2919; J3010; J3370; J3371; J3411; J3475; J3480; J7120; P9016; P9047

== ENCOUNTER → 2024-08-06 05:51 | Outpatient (BNV) | payer OTHER, SELFPAY | PROVIDERS: Admitting Provider Internal Medicine Pulmonary Disease; Emergency Provider Internal Medicine; Visit Provider Internal Medicine Cardiovascular Disease | DX: I44.5 Left posterior fascicular block (principal); R00.0 Tachycardia, unspecified | CPT/HCPCS: 93010 ==

== ENCOUNTER → 2024-08-06 07:56 | Outpatient (BNV) | payer OTHER, SELFPAY | PROVIDERS: Emergency Provider Internal Medicine; Visit Provider Radiology Vascular & Interventional Radiology | DX: I67.82 Cerebral ischemia (principal); S43.014A Anterior dislocation of right humerus, initial encounter; S42.211A Unspecified displaced fracture of surgical neck of right humerus, initial encounter for closed fracture; M25.512 Pain in left shoulder; W19.XXXA Unspecified fall, initial encounter | CPT/HCPCS: 70450; 71045; 72125; 73030 ==

== ENCOUNTER → 2024-08-06 08:28 | Outpatient (BNV) | payer OTHER, SELFPAY | PROVIDERS: Emergency Provider Internal Medicine; Visit Provider Physician Assistant | DX: S42.209A Unspecified fracture of upper end of unspecified humerus, initial encounter for closed fracture (principal); F10.931 Alcohol use, unspecified with withdrawal delirium; R56.9 Unspecified convulsions | CPT/HCPCS: 23680; 99024; 99222; 99232; 99499 ==

== ENCOUNTER 2024-08-06 10:01 | Outpatient (BNV) | payer OTHER, SELFPAY | END 2024-08-10 21:30 | PROVIDERS: Admitting Provider Internal Medicine Pulmonary Disease; Emergency Provider Internal Medicine; Responsible Provider Internal Medicine Critical Care Medicine; Visit Provider Specialist | DX: J98.4 Other disorders of lung (principal); J98.11 Atelectasis | CPT/HCPCS: 71045 ==

== ENCOUNTER 2024-08-06 10:01 | Outpatient (BNV) | payer OTHER, SELFPAY | END 2024-08-18 08:25 | PROVIDERS: Admitting Provider Internal Medicine Pulmonary Disease; Emergency Provider Internal Medicine; Visit Provider Radiology Diagnostic Radiology | DX: M25.78 Osteophyte, vertebrae (principal); W19.XXXA Unspecified fall, initial encounter | CPT/HCPCS: 71045 ==

== ENCOUNTER → 2024-08-06 10:01 | Outpatient (BNV) | payer OTHER, SELFPAY | PROVIDERS: Admitting Provider Internal Medicine Pulmonary Disease; Emergency Provider Internal Medicine; Visit Provider Internal Medicine Critical Care Medicine | DX: F10.931 Alcohol use, unspecified with withdrawal delirium (principal); E83.42 Hypomagnesemia; E87.6 Hypokalemia; E87.29 Other acidosis; R56.9 Unspecified convulsions; R20.0 Anesthesia of skin; R20.2 Paresthesia of skin; E87.20 Acidosis, unspecified | CPT/HCPCS: 99291 ==

== ENCOUNTER → 2024-08-06 10:01 | Outpatient (BNV) | payer OTHER, SELFPAY | PROVIDERS: Admitting Provider Internal Medicine Pulmonary Disease; Emergency Provider Internal Medicine; Visit Provider Internal Medicine Pulmonary Disease | DX: S42.91XA Fracture of right shoulder girdle, part unspecified, initial encounter for closed fracture (principal); W19.XXXA Unspecified fall, initial encounter; F10.931 Alcohol use, unspecified with withdrawal delirium | CPT/HCPCS: 99291 ==

== ENCOUNTER → 2024-08-06 10:01 | Outpatient (BNV) | payer OTHER, SELFPAY | PROVIDERS: Admitting Provider Internal Medicine Pulmonary Disease; Emergency Provider Internal Medicine; Visit Provider Internal Medicine | DX: S43.004A Unspecified dislocation of right shoulder joint, initial encounter (principal); A04.72 Enterocolitis due to Clostridium difficile, not specified as recurrent; T17.900A Unspecified foreign body in respiratory tract, part unspecified causing asphyxiation, initial encounter; J96.01 Acute respiratory failure with hypoxia; F10.931 Alcohol use, unspecified with withdrawal delirium | CPT/HCPCS: 99232; 99233 ==

== ENCOUNTER 2024-09-01 07:54 | Outpatient (REF) | payer OTHER, SELFPAY ==
--- NOTE | ~2024-09-01 | XR_ITS ---
EXAMINATION: XR SHOULDER 2 OR MORE VIEWS RIGHT HISTORY: M25.511 - Pain in right shoulder COMPARISON: Comparison is made with the prior examination dated 08/06/2024. FINDINGS: Two views of the right shoulder are submitted. In the interval since the prior study, the patient is status post resection of the previously seen dislocated humeral head fragment. The humeral shaft appears anatomically aligned. The AC joint is maintained. There are postoperative changes in the soft tissues. XR/XR shoulder RT min 2V IMPRESSION: Interval resection of the previously seen dislocated humeral head fragment. Electronically signed by: Washington Sandoval MD 09/01/2024 09:50 AM EDT
== END 2024-09-01 07:55 | disposition home or self-care (01) ==
LOC: HO.HOSX 07:54
PROVIDERS: Visit Provider Physician Assistant
DX: M25.511 Pain in right shoulder (principal); S43.004A Unspecified dislocation of right shoulder joint, initial encounter; S42.91XA Fracture of right shoulder girdle, part unspecified, initial encounter for closed fracture
CPT/HCPCS: 73030; 99212

== ENCOUNTER 2024-09-01 08:46 | Outpatient (AMB) | payer OTHER, SELFPAY ==
--- NOTE | 2024-09-01 09:35 | MHC.OFFVIS ---
Intake Visit Reasons: PO- RT proximal humerus ostectomy, DOS 08/22/24 Intake Note: Chris is a 54 year old male who presents today for a post operative visit s/p right proximal humerus ostectomy, DOS 08/22/24. Patient reports having a lot of pain. States he feels nauseous and dizzy due to his pain. Allergies No Known Allergies Allergy (Verified 09/01/24 10:00) Medication List - Last Reconciled 09/01/24 by Jenn Dickson PA-C amlodipine 5 mg See Protocol PO DAILY folic acid 1 mg PO DAILY levetiracetam 500 mg PO BID magnesium oxide 400 mg PO BIDPC metoprolol succinate ER 50 mg See Protocol PO DAILY nicotine 14 mg transdermal DAILY omeprazole 40 mg PO DAILY oxycodone 5 mg PO Q6H PRN 10 days prednisone 10 mg PO DAILY 5 days thiamine mononitrate (vit B1) 100 mg PO DAILY vancomycin 125 mg PO Q6H 7 days HPI HPI PO- RT proximal humerus ostectomy, DOS 08/22/24: Details: 54-year-old gentleman who presents to the office today status post right proximal humerus ostectomy on 08/22/[address] Gonsalez. Patient has a significant past medical history for alcohol intoxication with seizure activity. Patient was admitted to the hospital for alcohol intoxication followed by seizure activity and spent some time in the ICU intubated. At baseline patient is unaware of the activities leading up to his injury to the right shoulder. To date he was also expressing some confusion as to what occurred in the hospital including his surgery. Patient is presenting from a rehab facility. He states he was nauseous because of the pain. When asked if he would like to be seen in the emergency department he declined. [facility] Medical History Syncope Back pain Anemia Numbness and tingling in left arm Insomnia Chest pain Bulging lumbar disc Surgical History History of carpal tunnel surgery of right wrist H/O arthroscopy of left knee Social History Household Members: Family Housing: House Are you a primary post anesthesia care unit nurse to a significant other at home: No Do you presently have visiting nurse or other home services: No Alcohol intake: current Alcohol intake frequency: 3 or more drinks per day Alcohol type: beer Comment: 1:1 sitter at bedside Patient Tobacco Use Status: Current everyday Tobacco user Tobacco use type: Cigarette Cigarette Packs Per Day: 1 Cigarettes Per Day: 20.0 Years Smoked: 35 service: No 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al status: unemployed 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 Review of Systems Const All systems reviewed & are unremarkable except as noted in HPI and below Physical Exam Extrem Other: Right shoulder incision clean dry and intact. No surrounding erythema. There is some resolving ecchymosis. Neurovascularly intact. Results Reviewed Results Reviewed: X-rays of the right shoulder obtained in the office today and reviewed by me show evidence of ostectomy humeral head Assessment & Plan Assessment & Plan (1) Dislocation of shoulder, right, closed: Code(s): S43.004A - Unspecified dislocation of right shoulder joint, initial encounter Category: Medical (2) Shoulder fracture, right: Code(s): S42.91XA - Fracture of right shoulder girdle, part unspecified, initial encounter for closed fracture Category: Medical Plan Rebecca removed today Steri-Strips applied. The patient can work with physical therapy and occupational therapy for scapular stabilization and range of motion of the elbow and wrist. He can perform motion as tolerated of the shoulder. I did explain to him he is going to have significant limitations where he will unlikely be able to bring his arm to his head or behind body given the structural abnormality. He did express understanding. He can discontinue the use of the sling and use it as needed for comfort. He can see us back in 6-8 weeks for a follow-up, sooner if needed. Orders: Orders XR shoulder RT min 2V Today M25.511 - Pain in right shoulder Coding Level of Care Code Global (75761) Diagnoses Dislocation of shoulder, right, closed S43.004A Shoulder fracture, right S42.91XA
== END 2024-09-01 10:59 | disposition home or self-care (01) ==
PROVIDERS: Visit Provider Physician Assistant
DX: S43.004A Unspecified dislocation of right shoulder joint, initial encounter (principal); S42.91XA Fracture of right shoulder girdle, part unspecified, initial encounter for closed fracture
CPT/HCPCS: 99024

== ENCOUNTER → 2024-09-01 09:26 | Outpatient (BNV) | payer OTHER, SELFPAY | PROVIDERS: Visit Provider Radiology Diagnostic Radiology | DX: S43.011A Anterior subluxation of right humerus, initial encounter (principal) | CPT/HCPCS: 73030 ==

== ENCOUNTER 2024-10-16 17:11 | Emergency (ER) | payer OTHER, SELFPAY ==
--- NOTE | ~2024-10-16 | XR_ITS ---
CLINICAL HISTORY: fall,pain 3 view right shoulder Comparison: DX/SR - XR SHOULDER RT MIN 2V - 09/01/24 09:26 EDT CR - XR SHOULDER RT MIN 2V - 08/06/24 07:41 EDT Findings: Marked deformity of the right shoulder related to prior fracture. Humeral head is not definitely visualized, likely reabsorbed. No evidence of acute fracture. 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 No significant loss of joint space or osteophytes. No erosions. No radiopaque foreign body. IMPRESSION: Marked deformity of the right shoulder related to prior fracture. Humeral head is not definitely visualized, likely reabsorbed. No evidence of acute fracture. 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 This document has been electronically signed by: Margarita Davis MD on 10/16/2024 19:13:36
[2024-10-16 17:19] VITALS: BP 118/70; PULSE 88; O2SAT 99
[2024-10-16 17:21] VITALS: BP 114/70; PULSE 71; RESP 18; TEMP 36.8; O2SAT 100; BMI 20.6
[2024-10-16 17:53] LABS: MANUAL DIFF FLAG NO
--- NOTE | 2024-10-16 18:01 | PC.NURSE ---
patient states he tripped over his father's oxygen tubing after ?seizure this morning, landed on right shoulder and hit his head. denies blood thinners, LOC. daily drinker. IV established, labs obtained and sent. seizure precautions in place. patient states he has never had seizure from alcohol withdrawal however according to previous visits, patient has been admitted to ICU for his alcohol withdrawal
[2024-10-16 18:19] LABS: Alanine Aminotransferase 13 U/L (0-40); Albumin Level 4.2 g/dL (3.5-5.0); Alkaline Phosphatase 94 U/L (39-117); Anion Gap 25 (12-20); Aspartate Amino Transferase 49 U/L (5-37); Bilirubin Total 0.8 mg/dL (0.0-1.0); Blood Urea Nitrogen 9 mg/dL (9-16); Calcium 9.1 mg/dL (8.4-10.2); Carbon Dioxide 17 mmol/L (22-29); Chloride 105 mmol/L (96-108); Creatinine Clr Calc Pharmacy 98.6; Estimated Glomerular Filt Rate > 60; Ethanol 293 mg/dL; Glucose Random 83 mg/dL (60-115); Magnesium 1.3 mg/dL (1.6-2.6); Potassium 4.8 mmol/L (3.3-5.1); Sodium 142 mmol/L (135-145); Total Protein 8.2 g/dL (6.5-8.0)
[2024-10-16 18:34] LABS: Basophils Absolute Auto 0.1 X10*3/uL (0.0-0.2); Basophils Percent Auto 0.4 % (0-2); Eosinophils Absolute Auto 0.4 X10*3/uL (0.0-0.4); Eosinophils Percent Auto 3.2 % (0-4); Hematocrit 39.6 % (42.0-52.0); Hemoglobin 13.1 g/dl (14.0-18.0); Imm Gran Abs Auto 0.03 X10*3/uL (0.00-0.03); Imm Gran Pct Auto 0.3 % (0.0-0.4); Lymphocytes Absolute Auto 2.8 X10*3/uL (1.2-4.9); Lymphocytes Percent Auto 23.9 % (20-40); Mean Corpuscular HGB Conc 33.1 g/dl (31.0-36.0); Mean Corpuscular Hemoglobin 31.7 pg (27.0-33.0); Mean Corpuscular Volume 95.9 fL (80.0-98.0); Mean Platelet Volume 9.6 fL (9.4-12.4); Monocytes Percent Auto 8.5 % (2-11); Neutrophils Absolute Auto 7.4 x10*3/uL (2.0-8.3); Neutrophils Percent Auto 63.7 % (45-73); Platelet Count 201 X10*3/uL (160-400); Red Blood Count 4.13 X10*6/uL (4.60-5.80); Red Cell Distribution Width 15.1 % (11.0-16.0); White Blood Count 11.6 X10*3/uL (4.8-10.8)
[2024-10-16 18:36] VITALS: BP 112/72; PULSE 65; RESP 22; TEMP 37.1; O2SAT 100
--- NOTE | 2024-10-16 19:00 | ED.EXTPRO ---
HPI - Extremity Problem General Chief complaint: Extremity Problem Stated complaint: R SHOULDER PAIN/SOB/?SEIZURE THIS AM PER EMS Time Seen by Provider: 10/16/24 18:59 History of Present Illness ED Provider: Reid Bryan MD HPI Narrative: This is a 54-year-old male who has a history of seizure disorder ETOH use disorder recent complicated shoulder fracture and surgery weeks ago. He thinks he ?tripped and fell? this morning. He is unsure of exactly what happened does not recall losing consciousness or convulsing but triage notes states ?seizure this a.m. ?. To me he is unclear if this and he has been drinking today Mostly complaining and presenting seeking evaluation of the right shoulder that is been painful since he fell. He denies head strike no neck pain denies any focal deficits feels his shoulders stiffer than it was postoperatively Related Data Previous Rx's ?Medication ?Instructions ?Recorded amlodipine 5 mg tablet 5 mg PO DAILY #0 tabs 08/26/24 folic acid 1 mg tablet 1 mg PO DAILY #0 tabs 08/26/24 levetiracetam 500 mg tablet 500 mg PO BID #0 tabs 08/26/24 magnesium oxide 400 mg (241.3 mg 400 mg PO BIDPC #0 tabs 08/26/24 magnesium) tablet metoprolol succinate 50 mg 50 mg PO DAILY #0 tabs 08/26/24 tablet,extended release 24 hr nicotine 14 mg/24 hr daily 14 mg transdermal DAILY #0 ea 08/26/24 transdermal patch omeprazole 40 mg capsule,delayed 40 mg PO DAILY #0 caps 08/26/24 release oxycodone 5 mg tablet 5 mg PO Q6H PRN Pain, 08/26/24 Moderate(Pain Scale 4-6) 10 days #10 tabs prednisone 10 mg tablet 10 mg PO DAILY 5 days #0 tabs 08/26/24 thiamine mononitrate (vit B1) 100 100 mg PO DAILY #0 tabs 08/26/24 mg tablet vancomycin 125 mg capsule 125 mg PO Q6H 7 days #0 caps 08/26/24 magnesium 250 mg tablet 250 mg PO BID 7 days #14 tabs 10/16/24 Allergies Allergy/AdvReac Type Severity Reaction Status Date / Time No Known Allergies Allergy Verified 10/16/24 17:25 [facility] Past Medical History Medical History Syncope Back pain Anemia Numbness and tingling in left arm Insomnia Chest pain Bulging lumbar disc Surgical History History of carpal tunnel surgery of right wrist H/O arthroscopy of left knee Social History Social History Household Members: Family Housing: House Are you a primary live in caregiver to a significant other at home: No Do you presently have visiting nurse or other home services: No Alcohol intake: current Alcohol intake frequency: 3 or more drinks per day Alcohol type: beer Comment: 1:1 sitter at bedside Patient Tobacco Use Status: Current everyday Tobacco user Tobacco use type: Cigarette Cigarette Packs Per Day: 1 Cigarettes Per Day: 20.0 Years Smoked: 35 service: No 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al status: unemployed 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 Physical Exam Vital Signs: Vital Signs: Last Vital Signs Temp 97.9 F 10/16/24 21:59 Pulse 77 10/16/24 21:59 Resp 20 10/16/24 21:59 BP 107/71 10/16/24 21:59 Pulse Ox 98 10/16/24 21:59 O2 Del Method Room Air 10/16/24 21:59 BMI result Body Mass Index 20.6 Const: Other: EXAM: Gen: Alert, awake, well appearing, well hydrated. Head: Atraumatic Eyes: Anicteric, Normal conjunctiva. ENT: Moist mucosa, no pallor. ? Neck: Supple. Respiratory: Breathing comfortably, No distress.Clear to auscultation bilaterally, symmetric chest expansion, No wheeze, rales, ronchi. Cardiovascular: Regular rate and rhythm. No murmurs or rub. Well perfused periphery, warm extremities. No edema. ? Abdominal: No FOCAL TENDERNESS. Soft, no objective distension. No palpable masses or obvious organomegaly. ?No guarding, no rebound tenderness or other peritoneal findings. : No flank tenderness. Neuro: Alert. Gross movement of all extremities intact. ? Psych: Calm. Cooperative. MSK: No grossly visible deformity. The patient's right shoulder does have limited range of motion particularly with abduction. He is tender and surgical scars well healed there was no swelling warmth or erythema. Vital signs: See flowsheet Medical Decision Making Medical Decision Making MDM Narrative: [age] male with right shoulder pain after what he describes as a mechanical fall no tongue bite incontinence or other suggestion of seizure. Patient reports adherence with his seizure medications he drank alcohol today which he does daily. Right shoulders hurting he does not appear to have any other signs of head and neck or torso or other extremity injury. Shoulder although quite deformed on x-ray is consistent with his previously known injury which was operated on. No indication for emergent orthopedic consultation he can call his surgeon follow up outpatient if any additional imaging is necessary in a nonemergent basis. Pain control precautions discharged home Lab Data [facility] Lab Attestation statement: I reviewed the patient's lab results. 10/16/24 17:50 10/16/24 17:50 Labs: Lab Results 10/16/24 Range/Units 17:50 WBC 11.6 H (4.8-10.8) X10*3/uL RBC 4.13 L D (4.60-5.80) X10*6/uL Hgb 13.1 L D (14.0-18.0) g/dl Hct 39.6 L D (42.0-52.0) % MCV 95.9 (80.0-98.0) fL MCH 31.7 (27.0-33.0) pg MCHC 33.1 (31.0-36.0) g/dl RDW 15.1 (11.0-16.0) % Plt Count 201 D (160-400) X10*3/uL MPV 9.6 (9.4-12.4) fL Immature Gran % (Auto) 0.3 (0.0-0.4) % Neut % (Auto) 63.7 (45-73) % Lymph % (Auto) 23.9 (20-40) % [place] % (Auto) 8.5 (2-11) % Eos % (Auto) 3.2 (0-4) % Baso % (Auto) 0.4 (0-2) % Lymph # (Auto) 2.8 (1.2-4.9) X10*3/uL [place] # (Auto) 1.0 (0.1-1.2) X10*3/uL Eos # (Auto) 0.4 (0.0-0.4) X10*3/uL Baso # (Auto) 0.1 (0.0-0.2) X10*3/uL Abs Immat Gran (auto) 0.03 (0.00-0.03) X10*3/uL Absolute Neuts (auto) 7.4 (2.0-8.3) x10*3/uL Absolute Nucleated RBC 0.000 (0.0-0.012) X10*3/uL Nucleated RBC % (auto) 0.0 (0.0-0.2) /100WBC Sodium 142 (135-145) mmol/L Potassium 4.8 D (3.3-5.1) mmol/L Chloride 105 (96-108) mmol/L Carbon Dioxide 17 L (22-29) mmol/L Anion Gap 25 H (12-20) BUN 9 (9-16) mg/dL Creatinine 0.83 (0.5-1.4) mg/dL Estim Creat Clear Calc 98.6 Estimated GFR > 60 Random Glucose 83 (60-115) mg/dL Calcium 9.1 (8.4-10.2) mg/dL Magnesium 1.3 L* (1.6-2.6) mg/dL Total Bilirubin 0.8 (0.0-1.0) mg/dL AST 49 H (5-37) U/L ALT 13 (0-40) U/L Alkaline Phosphatase 94 (39-117) U/L Total Protein 8.2 H (6.5-8.0) g/dL Albumin 4.2 (3.5-5.0) g/dL Ethyl Alcohol 293 mg/dL Independent Interpretation I performed an independent interpretation of an: Plain X-Ray (Surgically removed humeral head previous comminuted fracture site. No obvious acute bony injury) Discharge Plan Discharge Clinical Impression: Hypomagnesemia Patient Disposition: Home, Self-Care Instructions: Hypomagnesemia (ED) Additional Instructions: We evaluated you shoulder with an x-ray. There was evidence of the previous injury but it does not appear that there is new injury. Your lab work showed low magnesium which is known and you were prescribed this previously Prescriptions: New magnesium 250 mg tablet 250 mg PO BID 7 Days Qty: 14 0RF No Action prednisone 10 mg Tablet 10 mg PO DAILY 5 Days Qty: 0 0RF nicotine 14 mg/24 hr Patch 24 Hour 14 mg transdermal DAILY Qty: 0 0RF metoprolol succinate 50 mg Tablet Extended Release 24 Hr 50 mg PO DAILY Qty: 0 0RF Protocol: Hold for SBP/HR < HOLD for SBP < : 90 HOLD for HR < : 60 levetiracetam 500 mg Tablet 500 mg PO BID Qty: 0 0RF amlodipine 5 mg Tablet 5 mg PO DAILY Qty: 0 0RF Protocol: Hold for SBP< HOLD for SBP < : 90 omeprazole 40 mg Capsule,Delayed Release(Dr/Ec) 40 mg PO DAILY Qty: 0 0RF vancomycin 125 mg Capsule 125 mg PO Q6H 7 Days Qty: 0 0RF magnesium oxide 400 mg (241.3 mg magnesium) Tablet 400 mg PO BIDPC Qty: 0 0RF folic acid 1 mg Tablet 1 mg PO DAILY Qty: 0 0RF oxycodone 5 mg Tablet 5 mg PO Q6H PRN (Reason: Pain, Moderate(Pain Scale 4-6)) 10 Days Qty: 10 0RF Rx Instructions: Partial Fill upon patient request. thiamine mononitrate (vit B1) 100 mg Tablet 100 mg PO DAILY Qty: 0 0RF Interventions: ED Discharge Assessment Last Done: 10/16/24 21:59 Discharge Date/Time: 10/16/24 22:00 Print Language: Persian
[2024-10-16 21:10] VITALS: BP 107/71; PULSE 77; RESP 20; TEMP 36.6; O2SAT 98
[2024-10-16 21:59] VITALS: BP 107/71; PULSE 77; RESP 20; TEMP 36.6; O2SAT 98
== END 2024-10-16 22:00 | disposition home or self-care (01) ==
PROVIDERS: Emergency Provider Emergency Medicine
DX: E83.42 Hypomagnesemia (principal); M25.511 Pain in right shoulder; R06.02 Shortness of breath; F17.210 Nicotine dependence, cigarettes, uncomplicated; Z51.81 Encounter for therapeutic drug level monitoring; Z79.899 Other long term (current) drug therapy
CPT/HCPCS: 36415; 73030; 80053; 80307; 83735; 85025; 99283; 99284

== ENCOUNTER → 2024-10-16 18:10 | Outpatient (BNV) | payer OTHER, SELFPAY | PROVIDERS: Emergency Provider Emergency Medicine; Visit Provider Student in an Organized Health Care Education/Training Program | DX: M25.511 Pain in right shoulder (principal) | CPT/HCPCS: 73030 ==

== ENCOUNTER 2024-10-18 08:35 | Outpatient (REF) | payer OTHER, SELFPAY | END 2024-10-18 08:36 | disposition home or self-care (01) | LOC: HO.HOSX 08:35 | PROVIDERS: Visit Provider Physician Assistant | DX: Z13.89 Encounter for screening for other disorder (principal) ==

== ENCOUNTER 2024-11-10 15:36 | Emergency (ER) | payer MEDICAID, SELFPAY ==
--- NOTE | ~2024-11-10 | CT_ITS ---
CLINICAL HISTORY: abd pain nausea vomiting CT abdomen and pelvis with contrast Comparison: CT - CT ABDOMEN PELVIS W IV CON - 11/10/24 18:25 EDT Findings: The lung bases are clear. The gallbladder and solid organs are within normal limits. No renal stones. No bowel obstruction, pneumoperitoneum, or pneumatosis. Pelvic contents unremarkable. Normal appendix. No acute fracture. IMPRESSION: No acute findings. This document has been electronically signed by: Rafael Lerner MD on 11/10/2024 20:19:27
[2024-11-10 15:46] VITALS: BP 113/67; BP 116/80; PULSE 101; PULSE 97; RESP 14; TEMP 36.8; O2SAT 98; O2SAT 99; BMI 21.6
[2024-11-10 15:56] VITALS: BP 113/67; PULSE 97; RESP 14; TEMP 36.8; O2SAT 98
[2024-11-10 16:20] VITALS: BP 113/67; PULSE 97; RESP 14; TEMP 36.8; O2SAT 98
--- NOTE | 2024-11-10 16:21 | PC.NURSE ---
Patient A&O x 3. PMH ETOH patient claims to only drink one beer every couple of days, patient had one beer this morning, Seizures (noncompliant w/ keppra BID) , Delirium tremens patient presents to ED c/o puking bright red blood. Started a couple weeks ago and has become worse. Patient c/o also feeling dizzy/lightheaded which started this morning. Patient fell this morning down stairs denies headstrike, increased nausea, vision changes. +CMS +ROM C/o SOB O2 99% RA RR 16 Pain in shoulder from recent reconstructive surgery 12/24 non radiating. Blood collected/sent. Patient on drafter electromechanical NSR. Plan of care on going
[2024-11-10 16:22] LABS: MANUAL DIFF FLAG NO
[2024-11-10 16:23] LABS: Basophils Percent Auto 0.5 % (0-2); Eosinophils Absolute Auto 0.3 X10*3/uL (0.0-0.4); Eosinophils Percent Auto 4.1 % (0-4); Hematocrit 37.7 % (42.0-52.0); Hemoglobin 13.2 g/dl (14.0-18.0); Imm Gran Abs Auto 0.02 X10*3/uL (0.00-0.03); Imm Gran Pct Auto 0.2 % (0.0-0.4); Lymphocytes Absolute Auto 3.1 X10*3/uL (1.2-4.9); Lymphocytes Percent Auto 37.1 % (20-40); Mean Corpuscular Hemoglobin 33.3 pg (27.0-33.0); Mean Corpuscular Volume 95.2 fL (80.0-98.0); Mean Platelet Volume 9.8 fL (9.4-12.4); Monocytes Absolute Auto 0.9 X10*3/uL (0.1-1.2); Monocytes Percent Auto 10.8 % (2-11); Neutrophils Percent Auto 47.3 % (45-73); Platelet Count 138 X10*3/uL (160-400); Red Blood Count 3.96 X10*6/uL (4.60-5.80); Red Cell Distribution Width 17.2 % (11.0-16.0); White Blood Count 8.4 X10*3/uL (4.8-10.8)
--- NOTE | 2024-11-10 16:31 | ED.NAVMDI ---
HPI - Nausea/Vomiting/Diarrhea General Chief complaint: Nausea/Vomiting/Diarrhea Stated complaint: vomiting blood Time Seen by Provider: 11/10/24 16:23 History of Present Illness HPI Narrative: Patient is a 54-year-old male with a history of ETOH. Drinks on a daily basis. Complaining of vomiting of blood ongoing for the last 2 weeks she has no fever no chills there is no abdominal pain feels somewhat lightheaded. Did have an episode of vomiting up blood this morning after drinking alcohol. Patient denies any head strike there is no dizziness no focal weakness no trauma. Does admits to nausea vomiting. Denies any abdominal surgery done in the past. No NSAID use. Has a history of seizures on Keppra but is noncompliant. History of DTs in the past. no blood in his stool Related Data Previous Rx's ?Medication ?Instructions ?Recorded amlodipine 5 mg tablet 5 mg PO DAILY #0 tabs 08/26/24 folic acid 1 mg tablet 1 mg PO DAILY #0 tabs 08/26/24 levetiracetam 500 mg tablet 500 mg PO BID #0 tabs 08/26/24 magnesium oxide 400 mg (241.3 mg 400 mg PO BIDPC #0 tabs 08/26/24 magnesium) tablet metoprolol succinate 50 mg 50 mg PO DAILY #0 tabs 08/26/24 tablet,extended release 24 hr nicotine 14 mg/24 hr daily 14 mg transdermal DAILY #0 ea 08/26/24 transdermal patch omeprazole 40 mg capsule,delayed 40 mg PO DAILY #0 caps 08/26/24 release oxycodone 5 mg tablet 5 mg PO Q6H PRN Pain, 08/26/24 Moderate(Pain Scale 4-6) 10 days #10 tabs prednisone 10 mg tablet 10 mg PO DAILY 5 days #0 tabs 08/26/24 thiamine mononitrate (vit B1) 100 100 mg PO DAILY #0 tabs 08/26/24 mg tablet vancomycin 125 mg capsule 125 mg PO Q6H 7 days #0 caps 08/26/24 magnesium 250 mg tablet 250 mg PO BID 7 days #14 tabs 10/16/24 ondansetron 4 mg disintegrating 4 mg PO TID PRN nausea and 11/11/24 tablet vomiting 5 days #10 tabs pantoprazole 40 mg tablet,delayed 40 mg PO DAILY #14 tabs 11/11/24 release (Protonix) Allergies Allergy/AdvReac Type Severity Reaction Status Date / Time No Known Allergies Allergy Verified 11/10/24 15:53 Review of Systems Review of Systems: Positive nausea vomiting Yes all other systems are reviewed and are negative [facility] Past Medical History Attestation statement: The following information was validated with the patient. Medical History Syncope Back pain Anemia Numbness and tingling in left arm Insomnia Chest pain Bulging lumbar disc Surgical History History of carpal tunnel surgery of right wrist H/O arthroscopy of left knee Social History Social History Household Members: Family Housing: House Are you a primary career services assistant to a significant other at home: No Do you presently have visiting nurse or other home services: No Alcohol intake: current Alcohol intake frequency: 3 or more drinks per day Alcohol type: beer Comment: 1:1 sitter at bedside Patient Tobacco Use Status: Current everyday Tobacco user Tobacco use type: Cigarette Cigarette Packs Per Day: 1 Cigarettes Per Day: 20.0 Years Smoked: 35 Smoked in Last 30 Days: Yes Use of substances other than those prescribed or required for medical reasons: No Advance Directives: Yes Advance Directives Information Provided: Yes Advance Directives on File: Yes Advance Directives Date on File: 08/28/24 Do you have a plan to hurt others: No Plan service: No 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al status: unemployed 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 Physical Exam Vital Signs: Vital Signs: Last Vital Signs Temp 97.9 F 11/10/24 22:37 Pulse 63 11/10/24 22:37 Resp 11 L 11/10/24 22:37 BP 122/71 11/10/24 22:37 Pulse Ox 99 11/10/24 22:37 O2 Del Method Room Air 11/10/24 22:37 BMI result Body Mass Index 21.6 Appearance: Alert. Oriented X3. No acute distress. Eyes: Pupils equal, round and reactive to light. ENT: Pharynx normal. Neck: Normal inspection. Neck supple. No lymph nodes noted. No crepitus CVS: Normal heart rate and rhythm. Pulses normal. Normal S1 and S2 Respiratory: No respiratory distress. Breath sounds normal. No Wheezing. No rales Abdomen: Soft and nontender. No rigidity. No distention. good BS x4 Skin: Skin warm and dry. Normal skin color. Normal skin turgor. Extremities: No lower extremity edema. Neurovascular intact to all extremities. No Lacerations. No Rash Neuro: Oriented X 3. No motor deficit. No sensory deficit. Moving all extermities. No slurred speech Medications Administered Discontinued Medications Generic Name Dose Route Start Last Admin Trade Name Mateus PRN Reason Stop Dose Admin Sodium Chloride 1,000 mls @ 999 mls/hr 11/10/24 16:45 11/10/24 18:29 Ns IV 11/10/24 17:45 Infused .Q1H1M JOHNATHAN Infusion Sodium Chloride 1,000 mls @ 999 mls/hr 11/10/24 16:45 11/10/24 18:29 Ns IV 11/10/24 17:45 Infused .Q1H1M JOHNATHAN Infusion Magnesium Sulfate 2 gm in 50 mls @ 150 mls/hr 11/10/24 17:28 11/10/24 18:41 Magnesium Sulfate/H2o IV 11/10/24 17:47 Infused ONCE ONE Infusion Magnesium Sulfate 2 gm in 50 mls @ 150 mls/hr 11/10/24 22:33 11/10/24 23:46 Magnesium Sulfate/H2o IV 11/10/24 22:52 Infused ONCE ONE Infusion Iohexol 85 ml 11/10/24 18:32 11/10/24 18:33 Iohexol 350 Mg/Ml 100 Ml Infus..Btl IV 11/10/24 18:33 85 ml ONCE ONE Administration Medical Decision Making Medical Decision Making MDM Narrative: Patient complaining of vomiting blood. Question streaks of blood. I did a rectal exam on patient was grossly negative. Patient's hemoglobin was checked. The initial hemoglobin is actually above baseline at 13. In the setting of patient having vomiting blood for 2 weeks. Less likely this is an actual bleed. Patient monitored in the emergency department given a L of fluids. We rechecked a hemoglobin it was the same. I did a rectal exam on patient. Patient is heme was negative. Brown stool. In the setting of negative guaiac having bleeding for few weeks. Having hemoglobin that is baseline unlikely patient actually have a bleed. Patient's alcohol level is significantly elevated at over 300. We monitor him in the ER. His flu COVID RSV were all negative. His CT scan of the abdomen showed no obstruction no abscess. Will discharge patient home to family. In stable condition. Patient did not want detox at this time. Differential Diagnosis Differential Diagnoses: The differential diagnosis associated with the presentation includes Alcohol intoxication, nausea Lab Data MDM Lab Attestation statement: I reviewed the patient's lab results. 11/10/24 22:03 11/10/24 22:03 Labs: Lab Results 11/10/24 11/10/24 11/10/24 Range/Units 16:13 17:07 21:00 WBC 8.4 (4.8-10.8) X10*3/uL RBC 3.96 L (4.60-5.80) X10*6/uL Hgb 13.2 L (14.0-18.0) g/dl Hct 37.7 L (42.0-52.0) % MCV 95.2 (80.0-98.0) fL MCH 33.3 H (27.0-33.0) pg MCHC 35.0 (31.0-36.0) g/dl RDW 17.2 H (11.0-16.0) % Plt Count 138 L D (160-400) X10*3/uL MPV 9.8 (9.4-12.4) fL Immature Gran % (Auto) 0.2 (0.0-0.4) % Neut % (Auto) 47.3 (45-73) % Lymph % (Auto) 37.1 (20-40) % [place] % (Auto) 10.8 (2-11) % Eos % (Auto) 4.1 H (0-4) % Baso % (Auto) 0.5 (0-2) % Lymph # (Auto) 3.1 (1.2-4.9) X10*3/uL [place] # (Auto) 0.9 (0.1-1.2) X10*3/uL Eos # (Auto) 0.3 (0.0-0.4) X10*3/uL Baso # (Auto) 0.0 (0.0-0.2) X10*3/uL Abs Immat Gran (auto) 0.02 (0.00-0.03) X10*3/uL Absolute Neuts (auto) 4.0 (2.0-8.3) x10*3/uL Absolute Nucleated RBC 0.000 (0.0-0.012) X10*3/uL Nucleated RBC % (auto) 0.0 (0.0-0.2) /100WBC Sodium 142 (135-145) mmol/L Potassium 3.3 D (3.3-5.1) mmol/L Chloride 107 (96-108) mmol/L Carbon Dioxide 19 L (22-29) mmol/L Anion Gap 19 (12-20) BUN 8 L (9-16) mg/dL Creatinine 0.65 (0.5-1.4) mg/dL Estim Creat Clear Calc 132.3 Estimated GFR > 60 Random Glucose 70 (60-115) mg/dL Calcium 8.4 D (8.4-10.2) mg/dL Magnesium 1.1 L* (1.6-2.6) mg/dL Total Bilirubin 0.9 (0.0-1.0) mg/dL Direct Bilirubin 0.3 (0.0-0.5) mg/dL AST 36 (5-37) U/L ALT 11 (0-40) U/L Alkaline Phosphatase 87 (39-117) U/L Total Protein 6.7 (6.5-8.0) g/dL Albumin 3.8 (3.5-5.0) g/dL Lipase 61 (8-78) U/L Stool Occult Blood NEGATIVE (NEGATIVE) Ethyl Alcohol 340 H* mg/dL Influenza Type A (PCR) NEGATIVE (Negative) Influenza Type B (PCR) NEGATIVE (Negative) RSV RNA Qual (PCR) NEGATIVE (Negative) SARS-CoV-2 RNA (RT-PCR) NEGATIVE (Negative) 11/10/24 Range/Units 22:03 WBC 8.3 (4.8-10.8) X10*3/uL RBC 3.94 L (4.60-5.80) X10*6/uL Hgb 13.0 L (14.0-18.0) g/dl Hct 37.5 L (42.0-52.0) % MCV 95.2 (80.0-98.0) fL MCH 33.0 (27.0-33.0) pg MCHC 34.7 (31.0-36.0) g/dl RDW 17.2 H (11.0-16.0) % Plt Count 116 L (160-400) X10*3/uL MPV 9.1 L (9.4-12.4) fL Immature Gran % (Auto) 0.4 (0.0-0.4) % Neut % (Auto) 53.9 (45-73) % Lymph % (Auto) 28.6 (20-40) % [place] % (Auto) 11.9 H (2-11) % Eos % (Auto) 4.2 H (0-4) % Baso % (Auto) 1.0 (0-2) % Lymph # (Auto) 2.4 (1.2-4.9) X10*3/uL [place] # (Auto) 1.0 (0.1-1.2) X10*3/uL Eos # (Auto) 0.4 (0.0-0.4) X10*3/uL Baso # (Auto) 0.1 (0.0-0.2) X10*3/uL Abs Immat Gran (auto) 0.03 (0.00-0.03) X10*3/uL Absolute Neuts (auto) 4.5 (2.0-8.3) x10*3/uL Absolute Nucleated RBC 0.000 (0.0-0.012) X10*3/uL Nucleated RBC % (auto) 0.0 (0.0-0.2) /100WBC Sodium 144 (135-145) mmol/L Potassium 3.7 (3.3-5.1) mmol/L Chloride 112 H (96-108) mmol/L Carbon Dioxide 17 L (22-29) mmol/L Anion Gap 19 (12-20) BUN 7 L (9-16) mg/dL Creatinine 0.58 (0.5-1.4) mg/dL Estim Creat Clear Calc 148.3 Estimated GFR > 60 Random Glucose 64 (60-115) mg/dL Calcium 7.9 L (8.4-10.2) mg/dL Magnesium 1.5 L (1.6-2.6) mg/dL Total Bilirubin (0.0-1.0) mg/dL Direct Bilirubin (0.0-0.5) mg/dL AST (5-37) U/L ALT (0-40) U/L Alkaline Phosphatase (39-117) U/L Total Protein (6.5-8.0) g/dL Albumin (3.5-5.0) g/dL Lipase (8-78) U/L Stool Occult Blood (NEGATIVE) Ethyl Alcohol mg/dL Influenza Type A (PCR) (Negative) Influenza Type B (PCR) (Negative) RSV RNA Qual (PCR) (Negative) SARS-CoV-2 RNA (RT-PCR) (Negative) Independent Interpretation I performed an independent interpretation of an: CT Scan (Grossly negative) Radiology Impression Discussion of test interpretation with radiology: I have reviewed the radiologist's reading. Critical Care Time Critical Care Time Critical Care Time: Yes Total Critical Care Time: 40 Attestation: I have personally provided 40 minutes of critical care time exclusive of time spent on separately billable procedures. ?Time includes review of lab data, radiology results, discussion with consultants, and monitoring for potential decompensation. ?Interventions were performed as documented above Discharge Plan Discharge Clinical Impression: Gastritis, Alcohol intoxication Patient Disposition: Home, Self-Care Instructions: Gastritis (DC), Alcohol Intoxication (DC) Additional Instructions: Please stop drinking alcohol. Prescriptions: New pantoprazole [Protonix] 40 mg tablet,delayed release (DR/EC) 40 mg PO DAILY Qty: 14 0RF ondansetron 4 mg tablet,disintegrating 4 mg PO TID PRN (Reason: nausea and vomiting) 5 Days Qty: 10 0RF No Action prednisone 10 mg Tablet 10 mg PO DAILY 5 Days Qty: 0 0RF nicotine 14 mg/24 hr Patch 24 Hour 14 mg transdermal DAILY Qty: 0 0RF metoprolol succinate 50 mg Tablet Extended Release 24 Hr 50 mg PO DAILY Qty: 0 0RF Protocol: Hold for SBP/HR < HOLD for SBP < : 90 HOLD for HR < : 60 levetiracetam 500 mg Tablet 500 mg PO BID Qty: 0 0RF amlodipine 5 mg Tablet 5 mg PO DAILY Qty: 0 0RF Protocol: Hold for SBP< HOLD for SBP < : 90 omeprazole 40 mg Capsule,Delayed Release(Dr/Ec) 40 mg PO DAILY Qty: 0 0RF vancomycin 125 mg Capsule 125 mg PO Q6H 7 Days Qty: 0 0RF magnesium oxide 400 mg (241.3 mg magnesium) Tablet 400 mg PO BIDPC Qty: 0 0RF folic acid 1 mg Tablet 1 mg PO DAILY Qty: 0 0RF oxycodone 5 mg Tablet 5 mg PO Q6H PRN (Reason: Pain, Moderate(Pain Scale 4-6)) 10 Days Qty: 10 0RF Rx Instructions: Partial Fill upon patient request. thiamine mononitrate (vit B1) 100 mg Tablet 100 mg PO DAILY Qty: 0 0RF magnesium 250 mg tablet 250 mg PO BID 7 Days Qty: 14 0RF Referrals: Physician,Unknown J [Primary Care Provider, Medical] - 3 days Print Language: Belarusian
[2024-11-10 16:35] LABS: Ethanol 340 mg/dL
[2024-11-10] MEDS: 0.9 % Sodium Chloride 1,000 ML 999 ML IV ×2 (16:42→16:43)
[2024-11-10 17:27] LABS: Alanine Aminotransferase 11 U/L (0-40); Albumin Level 3.8 g/dL (3.5-5.0); Alkaline Phosphatase 87 U/L (39-117); Anion Gap 19 (12-20); Aspartate Amino Transferase 36 U/L (5-37); Bilirubin Direct 0.3 mg/dL (0.0-0.5); Bilirubin Total 0.9 mg/dL (0.0-1.0); Blood Urea Nitrogen 8 mg/dL (9-16); Calcium 8.4 mg/dL (8.4-10.2); Carbon Dioxide 19 mmol/L (22-29); Chloride 107 mmol/L (96-108); Creatinine Clr Calc Pharmacy 132.3; Estimated Glomerular Filt Rate > 60; Glucose Random 70 mg/dL (60-115); Lipase 61 U/L (8-78); Magnesium 1.1 mg/dL (1.6-2.6); Potassium 3.3 mmol/L (3.3-5.1); Sodium 142 mmol/L (135-145); Total Protein 6.7 g/dL (6.5-8.0)
[2024-11-10] MEDS: Magnesium Sulfate/H2O 2 GM/50 ML PIGGYBACK IV ×2 (17:37→23:10)
--- NOTE | 2024-11-10 17:55 | PC.NURSE ---
seizure pads in place, no seizures noted at this time.
[2024-11-10 17:59] LABS: Influenza A PCR NEGATIVE (Negative); Influenza B PCR NEGATIVE (Negative); Resp Syncy Virus RNA Qual PCR NEGATIVE (Negative); SARS COV2 PCR INHOUSE NEGATIVE (Negative)
[2024-11-10 18:07] VITALS: BP 105/57; PULSE 86; RESP 15; TEMP 36.5; O2SAT 100
[2024-11-10] MEDS: iohexoL 350 MG/ML 100 ML INFUS..BTL 85 ML IV (18:33)
[2024-11-10 20:07] VITALS: BP 113/68; PULSE 68; RESP 15; TEMP 36.6; O2SAT 97
[2024-11-10 21:04] LABS: OBS Int Ctl Valid YES; OBS1 NEGATIVE (NEGATIVE)
[2024-11-10 22:08] LABS: MANUAL DIFF FLAG NO
[2024-11-10 22:13] LABS: Basophils Absolute Auto 0.1 X10*3/uL (0.0-0.2); Eosinophils Absolute Auto 0.4 X10*3/uL (0.0-0.4); Eosinophils Percent Auto 4.2 % (0-4); Hematocrit 37.5 % (42.0-52.0); Imm Gran Abs Auto 0.03 X10*3/uL (0.00-0.03); Imm Gran Pct Auto 0.4 % (0.0-0.4); Lymphocytes Absolute Auto 2.4 X10*3/uL (1.2-4.9); Lymphocytes Percent Auto 28.6 % (20-40); Mean Corpuscular HGB Conc 34.7 g/dl (31.0-36.0); Mean Corpuscular Volume 95.2 fL (80.0-98.0); Mean Platelet Volume 9.1 fL (9.4-12.4); Monocytes Percent Auto 11.9 % (2-11); Neutrophils Absolute Auto 4.5 x10*3/uL (2.0-8.3); Neutrophils Percent Auto 53.9 % (45-73); Platelet Count 116 X10*3/uL (160-400); Red Blood Count 3.94 X10*6/uL (4.60-5.80); Red Cell Distribution Width 17.2 % (11.0-16.0); White Blood Count 8.3 X10*3/uL (4.8-10.8)
[2024-11-10 22:22] LABS: Anion Gap 19 (12-20); Blood Urea Nitrogen 7 mg/dL (9-16); Calcium 7.9 mg/dL (8.4-10.2); Carbon Dioxide 17 mmol/L (22-29); Chloride 112 mmol/L (96-108); Creatinine Clr Calc Pharmacy 148.3; Estimated Glomerular Filt Rate > 60; Glucose Random 64 mg/dL (60-115); Magnesium 1.5 mg/dL (1.6-2.6); Potassium 3.7 mmol/L (3.3-5.1); Sodium 144 mmol/L (135-145)
[2024-11-10 22:37] VITALS: BP 122/71; PULSE 63; RESP 11; TEMP 36.6; O2SAT 99
[2024-11-11 01:05] VITALS: BP 124/72; PULSE 74; RESP 15; TEMP 36.5; O2SAT 98
[2024-11-11 01:28] VITALS: BP 124/72; PULSE 74; RESP 15; TEMP 36.5; O2SAT 98
[2024-11-14 11:19] LABS: Levetiracetam Keppra <2.0 mcg/mL (6.0-46.0)
== END 2024-11-11 01:29 | disposition home or self-care (01) ==
PROVIDERS: Emergency Provider Emergency Medicine Emergency Medical Services
DX: K29.70 Gastritis, unspecified, without bleeding (principal); F10.920 Alcohol use, unspecified with intoxication, uncomplicated; Y90.8 Blood alcohol level of 240 mg/100 ml or more; Z03.818 Encounter for observation for suspected exposure to other biological agents ruled out; R11.2 Nausea with vomiting, unspecified; F17.210 Nicotine dependence, cigarettes, uncomplicated; Z79.899 Other long term (current) drug therapy
CPT/HCPCS: 0241U; 36415; 74177; 80048; 80053; 80177; 80307; 82248; 82272; 83690; 83735; 85025; 96361; 96365; 96375; 99285; 99291; J3475; Q9967

== ENCOUNTER → 2024-11-10 16:29 | Outpatient (BNV) | payer MEDICAID, SELFPAY | PROVIDERS: Emergency Provider Emergency Medicine Emergency Medical Services; Visit Provider Radiology Diagnostic Radiology | DX: R11.2 Nausea with vomiting, unspecified (principal) | CPT/HCPCS: 74177 ==

== ENCOUNTER 2024-11-14 06:40 | Outpatient (REF) | payer MEDICAID, SELFPAY | END 2024-11-14 06:41 | disposition home or self-care (01) | LOC: HO.HOSX 06:40 | PROVIDERS: Visit Provider Physician Assistant | DX: Z13.89 Encounter for screening for other disorder (principal) ==

== ENCOUNTER 2024-12-20 10:17 | Outpatient (REF) | payer MEDICAID, SELFPAY ==
--- OUTSIDE RECORDS SUMMARY | 2024-12-21 10:51 | XMS_ITS | Clinical Summary ---
Author Organization [employer] Address [address] [facility] 7t [place] [address] Care Team Providers Care Political Science Chair Name Role Phone Unavailable Primary Care Provider Unavailabl e Encounters Date Type Department Care Team Description 11/29/2024 Telephone [facility] [address] [place] [id number] Diomedes Suarez MD New Patient appt. from Last 3 Months Social History Tobacco Use Types Packs/Day Years Used Date Smoking Tobacco: Never Assessed Sex and Gender Information Value Date Recorded Sex Assigned at Male 03/16/2022 10:29 AM EDT Legal Sex Male 10:29 AM EDT Gender Identity Not on file Sexual Orientation Not on file Plan of Treatment Upcoming Encounters Date Type Department Care Team (Late st Contact Info) Description 01/02/2025 10:45 AM EDT Office Visit [facility] [address] [place] [phone] Romina Diaz DO [address] [place] [address] Health Maintenance Due Date Last Done Comments CT Colonography 1972 Colonoscopy 1972 Colorectal Cancer Screening 1972 Depression Screening 1972 FIT DNA/Cologuard 1972 FIT 1972 FOBT 1972 HIV Screening 1972 Lipid Panel 1972 SDOH Screening 1972 Sigmoidoscopy 1972 Disability Screening 1972 Alcohol/Substance Use Screening 1984 Tobacco Screening 1984 Family Planning (PISQ) 01/22/1987 Hepatitis C Screening 01/22/1990 Hepatitis B Vaccines (1 of 3 - 19+ 3-dose series) 01/22/1991 DTaP/Tdap/Td Vaccines (1 - Tdap) 07/02/2013 07/01/2013 Pneumococcal Vaccine: 50+ Years (2 of 2 - PPSV23) 05/03/2018 03/08/2018 COVID-19 Vaccine ( season) 2024 04/01/2022, 06/04/2021, 10/09/2020, Additional history exists Influenza Vaccine (#1) 2025 , 01/24/2020, 03/13/2016 RSV Patients and Patients Aged 60 years or older (1 - 1-dose 75+ series) 01/22/2047 Zoster Vaccines Completed 01/25/2023, 04/01/2022 HIB Vaccines Aged Out No longer eligi ble based on patient's age to complete this topic HPV Vaccines Aged Out No longer eligi ble based on patient's age to complete this topic Hepatitis A Vaccines Aged Out No long er eligible based on patient's age to complete this topic IPV Vaccines Aged Out No longer eligi ble based on patient's age to complete this topic Meningococcal B Vaccine Aged Out No l onger eligible based on patient's age to complete this topic Meningococcal Vaccine Aged Out No darci raul eligible based on patient's age to complete this topic RSV under 20 months Aged Out No longe r eligible based on patient's age to complete this topic Rotavirus Vaccines Aged Out No longer eligible based on patient's age to complete this topic Insurance [facility] C3 * Guarantor: Chris Goodman Account Type Relation to Patient Date of Phone Billing Address Personal/Family Self [address] [place] [address]
== END 2024-12-20 10:18 | disposition home or self-care (01) ==
LOC: HO.HOSX 10:17
PROVIDERS: Visit Provider Physician Assistant
DX: Z13.89 Encounter for screening for other disorder (principal)

== ENCOUNTER 2025-01-03 09:14 | Emergency (ER) | payer MEDICAID, SELFPAY ==
[2025-01-03 09:21] VITALS: BP 117/72; PULSE 98; O2SAT 98
[2025-01-03 09:26] VITALS: BP 106/74; PULSE 89; RESP 16; TEMP 35.8; O2SAT 95; BMI 21.0
--- NOTE | 2025-01-03 09:29 | ED.GENADULT ---
HPI - General Adult General Chief complaint: Extremity Injury, Upper Stated complaint: r shoulder pain x2m surgery august Time Seen by Provider: 01/03/25 09:29 Source: patient and EMS Mode of arrival: EMS Limitations: no limitations History of Present Illness ED Provider: Radha Ryder PA-C HPI narrative: Patient is a 54 year old assigned male at with a history of AUD and right humerus fx presenting to the emergency department today with right shoulder pain. Patient states that he has been drinking today, started to have worsening pain in his shoulder where his humerus was broken, so he came to the hospital. Patient states that after he got to the hospital he decided he does not want to have his shoulder examined and he would like to be discharged. Patient denies any thoughts of hurting himself or others. Patient denies any other complaints at this time. Associated symptoms: denies other symptoms Related Data Previous Rx's ?Medication ?Instructions ?Recorded amlodipine 5 mg tablet 5 mg PO DAILY #0 tabs 08/26/24 folic acid 1 mg tablet 1 mg PO DAILY #0 tabs 08/26/24 levetiracetam 500 mg tablet 500 mg PO BID #0 tabs 08/26/24 magnesium oxide 400 mg (241.3 mg 400 mg PO BIDPC #0 tabs 08/26/24 magnesium) tablet metoprolol succinate 50 mg 50 mg PO DAILY #0 tabs 08/26/24 tablet,extended release 24 hr nicotine 14 mg/24 hr daily 14 mg transdermal DAILY #0 ea 08/26/24 transdermal patch omeprazole 40 mg capsule,delayed 40 mg PO DAILY #0 caps 08/26/24 release oxycodone 5 mg tablet 5 mg PO Q6H PRN Pain, 08/26/24 Moderate(Pain Scale 4-6) 10 days #10 tabs prednisone 10 mg tablet 10 mg PO DAILY 5 days #0 tabs 08/26/24 thiamine mononitrate (vit B1) 100 100 mg PO DAILY #0 tabs 08/26/24 mg tablet vancomycin 125 mg capsule 125 mg PO Q6H 7 days #0 caps 08/26/24 magnesium 250 mg tablet 250 mg PO BID 7 days #14 tabs 10/16/24 ondansetron 4 mg disintegrating 4 mg PO TID PRN nausea and 11/11/24 tablet vomiting 5 days #10 tabs pantoprazole 40 mg tablet,delayed 40 mg PO DAILY #14 tabs 11/11/24 release (Protonix) Allergies Allergy/AdvReac Type Severity Reaction Status Date / Time No Known Allergies Allergy Verified 01/03/25 09:29 Review of Systems Constitutional: Constitutional: Reports no additional constitutional complaints, Denies chills, Denies fever(s) and Denies night sweats Eyes: Eyes: Reports no additional eye complaints, Denies blurry vision, Denies change in vision, Denies diplopia, Denies eye discharge, Denies loss of vision and Denies eye pain ENT: Denies dizziness Cardiovascular: Cardiovascular: Reports no additional cardiovascular complaints, Denies chest pain, Denies lightheadedness, Denies Loss of Consciousness and Denies dyspnea Respiratory: Respiratory: Reports no additional respiratory complaints and Denies dyspnea Gastrointestinal: Gastrointestinal: Reports no additional gastrointestinal complaints, Denies abdominal pain, Denies melena, Denies hematochezia, Denies change in bowel habits and Denies change in stool character Genitourinary: Genitourinary: Reports no additional male genitourinary complaints, Denies hematuria, Denies oliguria, Denies difficulty urinating, Denies dysuria, Denies urinary frequency, Denies urinary hesitancy, Denies urinary incontinence and Denies urinary urgency Musculoskeletal: Musculoskeletal: Reports no additional musculoskeletal complaints, Denies numbness and Denies tingling Comments: right shoulder pain Neurologic: Denies dizziness, Denies loss of vision, Denies numbness and Denies tingling Psychiatric: Psychiatric: Reports no additional psychiatric complaints Endocrine: Endocrine: Reports no additional endocrine complaints Hematologic/Lymphatic: Hematologic/Lymphatic: Reports no additional hematologic/lymphatic complaints Allergic/Immunologic: Allergic/Immunologic: Reports no additional allergic/immunologic complaints [facility] Past Medical History Attestation statement: The following information was validated with the patient. Source: old records reviewed and nursing notes reviewed Medical History Syncope Back pain Anemia Numbness and tingling in left arm Insomnia Chest pain Bulging lumbar disc Surgical History History of carpal tunnel surgery of right wrist H/O arthroscopy of left knee Social History Social History Household Members: Family Housing: House Are you a primary rn critical care to a significant other at home: No Do you presently have visiting nurse or other home services: No Alcohol intake: current Alcohol intake frequency: 3 or more drinks per day Alcohol type: beer Comment: 1:1 sitter at bedside Patient Tobacco Use Status: Current everyday Tobacco user Tobacco use type: Cigarette Cigarette Packs Per Day: 1 Cigarettes Per Day: 20.0 Years Smoked: 35 Advance Directives: Yes Advance Directives on File: Yes Advance Directives Date on File: 08/28/24 service: No 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al status: unemployed 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 Physical Exam ED Vital Signs: Vital Signs - 24 hr 01/03/25 09:26 01/03/25 09:32 Temperature 96.5 F L 96.5 F L Pulse Rate 89 89 Respiratory Rate 16 16 Blood Pressure 106/74 106/74 Pulse Oximetry 95 95 Oxygen Delivery Method Room Air Room Air BMI result Body Mass Index 21.0 Const General: cooperative, no acute distress, alert and awake Nutritional Appearance: well nourished Orientation/consciousness: patient oriented x3 HENMT Head: Yes normal to inspection and Yes atraumatic Ears: hearing grossly normal bilaterally and external ears normal General nose exam: Normal external nose present, no nasal discharge noted and no epistaxis Face and sinus: Yes normal facial exam, No abrasion and No laceration Mouth: Normal oral and palatal mucosa present, no drooling and no muffled voice Eyes General: appearance normal, both eyes and all related structures Periorbital: periorbital findings normal Eyelids: Yes eyelids normal Conjunctivae: conjunctivae normal Pupils: Equal, round and reactive pupils present EOM: EOMs intact bilaterally Neck Neck: Yes normal visual inspection and Yes full ROM Resp Effort & Inspection: normal respiratory effort and able to speak in complete sentences Neuro General: patient oriented x3, moves all extremities and CN's II-XI intact bilaterally Cranial nerves: Yes Equal, round and reactive pupils present Cognition (Neuro): normal cognition Extrem Other: right arm in sling - limited ROM secondary to pain General: Yes capillary refill normal Psych Appearance: grossly normal Mental Status: mental status grossly normal Affect: normal affect Attitude: cooperative Thought process: Normal thought process present Thought content: Normal thought content present Insight: Good insight present (Psych) Medical Decision Making Medical Decision Making MDM Narrative: Patient is a 54 year old assigned male at with a history of AUD and right humerus fx presenting to the emergency department today with right shoulder pain. Patient's physical exam was as noted in the physical exam portion of this note. Patient was obviously intoxicated however, he was of sound mind and decision making capability. I explained my physical exam findings to the patient. I answered all questions asked by the patient. Patient declined to have any testing done including x-rays. I stressed the importance of the patient taking his medication as directed (either prescribed or as the over the counter packaging recommends). I stressed the importance of the patient following up with his primary care provider. I stressed the importance of the patient returning to the emergency department immediately if his symptoms were to worsen or if he were to develop any dizziness, shortness of breath, difficulty breathing, chest pain, blurry vision, loss of vision, nausea, vomiting, abdominal pain, fever, chills, back pain, or any other complaints. Patient verbalized agreement and understanding with this treatment plan and discharge. Differential Diagnosis Differential Diagnoses: The differential diagnosis associated with the presentation includes Right shoulder pain Alcohol intoxication Admission/Observation Consideration of admission/observation: Escalation of care including admission/observation considered Patient would have been admitted to the hospital had his clinical presentation warranted hospital admission. Discharge Plan Discharge Clinical Impression: Acute shoulder pain Patient Disposition: Home, Self-Care Instructions: Shoulder Pain (ED) Additional Instructions: You came to the emergency department to have your right shoulder examined however, you have now declined to have any imaging and have requested to leave. IF you change your mind and want your shoulder evaluated, please come back. IF you are prescribed home medications and/or you are taking over the counter medications at home - it is very important you continue to do so as prescribed / directed unless told otherwise. Follow up with a primary care provider. Return to the emergency department immediately if your symptoms worsen or if you develop any numbness, tingling, dizziness, shortness of breath, difficulty breathing, chest pain, blurry vision, loss of vision, nausea, vomiting, abdominal pain, fever, chills, back pain, or any other complaints. If you do not have a primary care provider - call any of the below numbers to establish and follow up with a primary care provider. [facility] ([place]) [phone] [place] [address], [address] [facility] ([address] [place] [address]) [phone] [address] [facility], [address] [facility], [address] [facility] ([address] [place] [address]) [phone] [place] [address], [address] [facility], [address] [facility] ([place]) [phone] [place] [address], [address] [facility], [address] [facility] [phone] [place] [address], [address] Please see the information below about our Patient Portal. If you are not yet enrolled in the [facility] Patient Portal, you will receive an enrollment email invitation following your visit to any [facility] care setting. You may also self-enroll in the Patient Portal by visiting our website: [email or web address] The following information is required to access the Patient Portal: - Your [facility] Medical Record Number - Your personal home email address (must match what is in your electronic medical record, Registration staff can assist with this) - Name - Date of Capabilities of the Patient Portal: - Message some providers - View upcoming appointments - Access your health summary, medical history, and visit history - View current conditions and allergies - View procedure and lab results - View your medications, including guidelines, side effects, and precautions - Complete pre-appointment questionnaires requested by your provider - Ready summary reports of your office visits and procedures To access the Patient Portal Mobile [employer], follow these directions: - Search [employer] in the [employer] Store or [employer] Store - Download the [employer]etra - Search for [facility] - Enter your login/password Prescriptions: No Action prednisone 10 mg Tablet 10 mg PO DAILY 5 Days Qty: 0 0RF nicotine 14 mg/24 hr Patch 24 Hour 14 mg transdermal DAILY Qty: 0 0RF metoprolol succinate 50 mg Tablet Extended Release 24 Hr 50 mg PO DAILY Qty: 0 0RF Protocol: Hold for SBP/HR < HOLD for SBP < : 90 HOLD for HR < : 60 levetiracetam 500 mg Tablet 500 mg PO BID Qty: 0 0RF amlodipine 5 mg Tablet 5 mg PO DAILY Qty: 0 0RF Protocol: Hold for SBP< HOLD for SBP < : 90 omeprazole 40 mg Capsule,Delayed Release(Dr/Ec) 40 mg PO DAILY Qty: 0 0RF vancomycin 125 mg Capsule 125 mg PO Q6H 7 Days Qty: 0 0RF magnesium oxide 400 mg (241.3 mg magnesium) Tablet 400 mg PO BIDPC Qty: 0 0RF folic acid 1 mg Tablet 1 mg PO DAILY Qty: 0 0RF oxycodone 5 mg Tablet 5 mg PO Q6H PRN (Reason: Pain, Moderate(Pain Scale 4-6)) 10 Days Qty: 10 0RF Rx Instructions: Partial Fill upon patient request. thiamine mononitrate (vit B1) 100 mg Tablet 100 mg PO DAILY Qty: 0 0RF magnesium 250 mg tablet 250 mg PO BID 7 Days Qty: 14 0RF pantoprazole [Protonix] 40 mg tablet,delayed release (DR/EC) 40 mg PO DAILY Qty: 14 0RF ondansetron 4 mg tablet,disintegrating 4 mg PO TID PRN (Reason: nausea and vomiting) 5 Days Qty: 10 0RF Interventions: ED Discharge Assessment Last Done: 01/03/25 09:32 Discharge Date/Time: 01/03/25 09:37 Print Language: Turkmen
[2025-01-03 09:32] VITALS: BP 106/74; PULSE 89; RESP 16; TEMP 35.8; O2SAT 95
--- OUTSIDE RECORDS SUMMARY | 2025-01-03 10:21 | XMS_ITS | Encounter Summary ---
Author Organization [employer] Address [address] [facility] 7t [place] [address] Care Team Providers Care Plasma Processor Name Role Phone Unavailable Primary Care Provider Unavailabl e Reason for Visit * Reason Onset Date Comments Chart Prep 01/01/2025 Encounter Details Date Type Department Care Team (Late st Contact Info) Description 01/01/2025 Telephone [facility] [address] [place], [place] [phone] Romina Diaz DO [address] [place], [place] [phone] Chart Prep Social History Tobacco Use Types Packs/Day Years Used Date Smoking Tobacco: Never Assessed Sex and Gender Information Value Date Recorded Sex Assigned at Male 03/16/2022 10:29 AM EDT Legal Sex Male 10:29 AM EDT Gender Identity Choose not to disclose 3:22 PM EDT Sexual Orientation Don't know 01/01/2025 3: 22 PM EDT documented as of this encounter Miscellaneous Notes * Telephone Encounter - Carmella Fried MA - 01/01/2025 1:20 PM EDT Chart Prep Labs: done Images: not applicable Referrals: not applicable Vaccines due: Covid, PCV20, Tdap, and Hep B Screenings: colonoscopy and HIV Screening, Hepatitis C Screening Overdue care gaps: SBIRT, SDOH, PHQ-9, ANDER-7, Oral health screening, Disability screen, and Tobacco documented in this encounter Plan of Treatment Not on file documented as of this encounter Visit Diagnoses Not on filedocumented in this encounter
== END 2025-01-03 09:37 | disposition home or self-care (01) ==
LOC: HO.ED 09:35
PROVIDERS: Emergency Provider Emergency Medicine
DX: M25.511 Pain in right shoulder (principal); F17.210 Nicotine dependence, cigarettes, uncomplicated
CPT/HCPCS: 99282

== ENCOUNTER 2025-02-16 08:44 | Outpatient (REF) | payer MEDICAID, SELFPAY ==
--- OUTSIDE RECORDS SUMMARY | 2025-02-16 09:06 | XMS_ITS | Clinical Summary ---
Author Organization [employer] [facility] Address [address] [facility] 7[address] [place] [address] Care Team Providers Care Decorator Store Name Role Phone Unavailable Primary Care Provider Unavailabl e Active Problems Problem Noted Date Diagnosed Date Anemia 12/27/2024 Alcohol use disorder 12/27/2024 COPD (chronic obstructive pulmonary disease) Tobacco dependence 03/08/2018 Lung nodule 02/12/2018 Encounters Date Type Department Care Team Description 01/17/2025 Population Health Risk Score [facility] (C[facility]) Department [address] [id number] Provider, Population Health Generic 01/01/2025 Telephone [facility] [address] [place] [phone] Romina Diaz DO Chart Prep 12/28/2024 Telephone [facility] [address] [place] [phone] Diomedes Suarez MD 12/26/2024 Patient Outreach [facility] [address] [place] [phone] Romina Diaz DO Pre-visit Planning (Unable to complete) 11/29/2024 Telephone [facility] [address] [place] [phone] Diomedes Suarez MD New Patient appt. from Last 3 Months Immunizations Immunization Administration Dates Next Due Influenza injectable quadriv alent preservative free 01/18/2021,01/24/2020,03/13/2016 Moderna Covid-19 Vaccine 12+ 06/04/2021,10/10/19 21,09/11/2020 Moderna Covid-19 Vaccine 6+ Bivalent 04/01/2022 Pneumococcal Conjugate PCV 13 03/08/2018 Td (adult), 5 Lf tetanus tox oid, preservative free, adsorbed 07/01/2013 Zoster, Recombinant 01/25/2023,04/01/2022 Social History Tobacco Use Types Packs/Day Years Used Date Smoking Tobacco: Never Assessed Sex and Gender Information Value Date Recorded Sex Assigned at Male 03/16/2022 10:29 AM EDT Legal Sex Male 10:29 AM EDT Gender Identity Choose not to disclose 3:22 PM EDT Sexual Orientation Don't know 01/01/2025 3: 22 PM EDT Plan of Treatment Health Maintenance Due Date Last Done Comments CT Colonography 1972 Colonoscopy 1972 Colorectal Cancer Screening 1972 Depression Screening 1972 FIT DNA/Cologuard 1972 FIT 1972 FOBT 1972 HIV Screening 1972 Lipid Panel 1972 SDOH Screening 1972 Sigmoidoscopy 1972 Disability Screening 1972 Alcohol/Substance Use Screening 1984 Tobacco Screening 1984 Hepatitis C Screening 01/22/1990 Hepatitis B Vaccines (1 of 3 - 19+ 3-dose series) 01/22/1991 DTaP/Tdap/Td Vaccines (1 - Tdap) 07/02/2013 07/01/2013 Pneumococcal Vaccine: 50+ Years (2 of 2 - PPSV23) 05/03/2018 03/08/2018 COVID-19 Vaccine ( - season) 2025 04/01/2022, 06/04/2021, 10/09/2020, Additional history exists Influenza [...] patient's age to complete this topic Insurance [facility] C3
== END 2025-02-16 08:45 | disposition home or self-care (01) ==
LOC: HO.HOSX 08:44
PROVIDERS: Visit Provider Physician Assistant
DX: Z13.89 Encounter for screening for other disorder (principal)

== ENCOUNTER 2025-03-15 07:42 | Inpatient (IN) | payer MEDICAID, SELFPAY ==
[2025-03-15] VITALS (11 sets, daily range): BP systolic 125–180; BP diastolic 66–100; PULSE 76–160; RESP 15–22; TEMP 36.5–37.2; O2SAT 96–100; BMI 18.7; BMI 20.8
--- NOTE | ~2025-03-15 | MR_ITS ---
EXAMINATION: MR BRAIN WITHOUT CONTRAST CLINICAL INFORMATION: Concerning subacute infarct, brainstem. COMPARISON: September 29, 2007 is not available on PACS. Correlated to CT brain dated March 15, 2025. TECHNIQUE: MRI of the brain was obtained using routine sequences without contrast. FINDINGS: No restricted diffusion. No acute intracranial hemorrhage, mass effect, midline shift, hydrocephalus or herniation. Almonte-white matter differentiation is normal. Old lacunar infarcts in the basal ganglia and mid zeinab with the wire layering degeneration into the brachial pontis. Prominence of the extra-axial CSF spaces cerebral sulci and ventricles. Craniocervical junction is intact with normal position of the cerebellar tonsils. Sellar/suprasellar region demonstrates no signal abnormality or gross masses. There is thinning of the corpus callosum. Mucosal thickening, paranasal sinuses. Hyperintense T2 FLAIR signal in the mastoid air cells more pronounced on the right petrous bone. MR/MR head/brain wo con IMPRESSION: No acute stroke/nonhemorrhagic ischemia. Small vessel occlusive disease. Old lacunar infarct in the zeinab resulting in wallerian degeneration. Global cerebral atrophy. Progressive supranuclear palsy canal at the entire excluded. Electronically signed by: Michele Slaughter MD 03/16/2025 03:34 PM EDT
--- NOTE | ~2025-03-15 | CT_ITS ---
EXAMINATION: CT CERVICAL SPINE WITHOUT IV CONTRAST HISTORY: trauma. TECHNIQUE: Helical CT of the cervical spine was performed per standard departmental protocol. Coronal and sagittal reformatted images were also evaluated. One or more of the following techniques was used for dose reduction: Automated exposure control, adjustment of the mA and/or kV according to patient size, use of iterative reconstruction technique. DLP: 463 mGy-cm COMPARISON: Prior cervical spine CT July 2024 FINDINGS: CERVICAL SPINE: Alignment is normal. No fracture or dislocation. Mild multilevel degenerative spondylosis from C2-3 to C5-6. Mild degenerative changes at the C1 dens articulation. Disc spaces are normal. Prevertebral soft tissues are normal. BRAIN: The visualized portion of the brain is unremarkable. SINUSES: Mild inflammatory changes in the sphenoid sinus. LUNG APICES: The visualized lung apices are clear. Mild paraseptal emphysema. SOFT TISSUES: Mild left carotid calcification. Normal thyroid gland. CT/CT cervical spine wo IV con IMPRESSION: No evidence of fracture or malalignment of the cervical spine. Degenerative changes. Electronically signed by: Sofie Mathews MD 03/15/2025 09:01 AM EDT
--- NOTE | ~2025-03-15 | XR_ITS ---
EXAMINATION: XR CHEST CLINICAL INFORMATION: SOB COMPARISON: Previous chest x-rays most recent August 2024 TECHNIQUE: Frontal view of the chest was obtained. FINDINGS: The lungs are well-inflated. There is significant interval improvement in bilateral multilobar airspace disease seen August 2024. The lungs are clear. No new consolidation or evidence of pulmonary edema. No pleural effusion or pneumothorax. Cardiac and mediastinal contours are stable. Old right proximal humerus fracture. XR/XR chest 1V IMPRESSION: No evidence for acute disease in the chest. Well-inflated lungs. No evidence of pneumonia. Electronically signed by: Sofie Mathews MD 03/15/2025 08:39 AM EDT
--- NOTE | ~2025-03-15 | CT_ITS ---
EXAMINATION: CT HEAD WITHOUT IV CONTRAST HISTORY: trauma. TECHNIQUE: Unenhanced helical CT of the head was performed per standard departmental protocol. Coronal and sagittal reformats of the head were also evaluated. One or more of the following techniques was used for dose reduction: Automated exposure control, adjustment of the mA and/or kV according to patient size, use of iterative reconstruction technique. Initial exam limited due to motion and repeat axial images obtained. DLP: 799+7 8 6 mgy/cm mGy-cm COMPARISON: Previous head CT scans most recent July 2024 FINDINGS: BRAIN: There is no evidence of an extra-axial collection. There is no evidence of intra or extra-axial hemorrhage. The ventricles and extra-axial CSF spaces are prominent suggestive of generalized atrophy. There is well-defined low attenuation seen in the zeinab suggestive of an old infarct. This is new in the interval from July 2024 exam however does not appear acute. There is question of more inferior ill-defined low attenuation in the brainstem/medulla. Appearance is questionable for a more recent or subacute infarct versus artifact from the skull base. No other mass, mass effect or infarct is seen. There is evidence of atherosclerotic disease. SINUSES: Inflammatory changes in the bilateral frontal and ethmoid sinuses. The mastoid air cells and middle ear cavities are well pneumatized. ORBITS: The visualized orbits are unremarkable. BONES/SOFT TISSUES: The extracranial soft tissues are unremarkable. The calvarium is intact. No suspicious lytic or sclerotic lesions. CT/CT head/brain wo IV con IMPRESSION: Old appearing brainstem infarct in the zeinab. Question more recent subacute infarct in the more anterior inferior brain stem/medulla versus artifact from the skull base. This could be evaluated with MRI if clinically warranted. Generalized atrophy and nonspecific periventricular white matter disease. No skull fracture or hemorrhage. Mild inflammatory changes in the frontal and ethmoid sinuses. Findings communicated to Dr. Avina by telephone 03/15/2025 at 9:10 AM. Electronically signed by: Sofie Mathews MD 03/15/2025 09:16 AM EDT
--- NOTE | ~2025-03-15 | XR_ITS ---
EXAMINATION: XR SHOULDER 2 OR MORE VIEWS RIGHT HISTORY: trauma (portable) COMPARISON: Comparison is made with the prior examination dated 10/16/2024. FINDINGS: Three views of the right shoulder are submitted. Osseous mineralization is normal. Again seen is posttraumatic deformity of the proximal humerus. The humeral head is not identified and may have been surgically removed or resorbed. There is irregularity of the glenoid. There is narrowing of the AC joint. The soft tissues are unremarkable. XR/XR shoulder RT min 2V IMPRESSION: Posttraumatic deformity of the proximal humerus without change. No acute abnormality is seen. Electronically signed by: Washington Sandoval MD 03/15/2025 09:51 AM EDT
--- NOTE | ~2025-03-15 | CT_ITS ---
EXAMINATION: CT MAXILLOFACIAL WITHOUT IV CONTRAST HISTORY: trauma. TECHNIQUE: Serial 1.5 mm helically acquired images were obtained of the facial bones per standard departmental protocol. Coronal and sagittal reformatted images were also obtained and evaluated. One or more of the following techniques was used for dose reduction: Automated exposure control, adjustment of the mA and/or kV according to patient size, use of iterative reconstruction technique. DLP: 316 mGy-cm COMPARISON: There are no prior studies available for comparison. FINDINGS: There is deviation of the nasal septum to the right. There is a minimally displaced fracture of the nasal septum for example axial image 179 series 20 and coronal reconstructed image 57 series 24. There is soft tissue swelling over the nose. No displaced nasal bone fracture is seen. Nasal cavity is clear. Mild inflammatory changes in the bilateral frontal and ethmoid sinuses. Mild inflammatory changes of the sphenoid sinus. The temporomandibular joints are normal. Mastoid air cells and middle ears are clear. The orbits are normal. Poor dentition. Radiopaque soft tissue foreign body in the right cheek axial image 126 series 20. This is unchanged from old head CT July [address]24. CT/CT facial bones wo IV con IMPRESSION: Nasal septum fracture and deviated nasal septum to the right. No other fractures seen. Mild inflammatory changes in the bilateral frontal, ethmoid and sphenoid sinus. Small radiopaque soft tissue foreign body in the right cheek/not acute, unchanged from old exam.. Electronically signed by: Sofie Mathews MD 03/15/2025 09:11 AM EDT
[2025-03-15 07:55] LABS: Glucose, Whole Blood 161 mg/dL (60-115)
--- NOTE | 2025-03-15 07:57 | ED_ITS ---
HPI - Seizure General Chief Complaint: Seizure Stated Complaint: 2 FALLS,NOSE LAC,?LOC,NO MEMORY,-THINNER,+CCOLLAR Source: EMS Mode of arrival: EMS Limitations: altered mental status History of Present Illness HPI Narrative: This is a 55 years old with a alcohol abuse brought in by ambulance seizing. The original call was for falls at least 2 according to EMS he was awake and alert of the arrival, he had seizure in the ambulance, we will give him 5 mg of Versed IM because no IV access. He is now postictal. The patient has a long history of alcohol abuse, multiple ED visits with a alcohol intoxication he has abrasion in the face. He has prior admission to the hospital for alcohol withdrawal seizure Onset (ago): hour(s) (1) Description of Episode: tonic-clonic movement Duration of episode: 2 -: minutes(s) Witnessed: Yes - by EMS Trauma: Yes Seizure History: No Place: Home Possible Precipitating Event: alcohol withdrawal Related Data Previous Rx's ?Medication ?Instructions ?Recorded amlodipine 5 mg tablet 5 mg PO DAILY #0 tabs folic acid 1 mg tablet 1 mg PO DAILY #0 tabs levetiracetam 500 mg tablet 500 mg PO BID #0 tabs 08/15 07/11 magnesium oxide 400 mg (241.3 mg 400 mg PO BIDPC #0 ta bs 08/26/24 magnesium) tablet metoprolol succinate 50 mg 50 mg PO DAILY #0 tabs 08/15 07/11 tablet,extended release 24 hr nicotine 14 mg/24 hr daily 14 mg transdermal DAILY #0 ea 08/26/24 transdermal patch omeprazole 40 mg capsule,delayed 40 mg PO DAILY #0 cap s 08/26/24 release oxycodone 5 mg tablet 5 mg PO Q6H PRN Pain, Moderate(Pain Scale 4-6) 10 days #10 tabs prednisone 10 mg tablet 10 mg PO DAILY 5 days #0 tab s 08/26/24 thiamine mononitrate (vit B1) 100 100 mg PO DAILY #0 t abs 08/26/24 mg tablet vancomycin 125 mg capsule 125 mg PO Q6H 7 days #0 caps 08/26/24 magnesium 250 mg tablet 250 mg PO BID 7 days #14 tab s 10/16/24 ondansetron 4 mg disintegrating 4 mg PO TID PRN nausea and 11/11/24 tablet vomiting 5 days #10 tabs pantoprazole 40 mg tablet,delayed 40 mg PO DAILY #14 t abs 11/11/24 release (Protonix) Allergies Allergy/AdvReac Type Severity Reaction Status Date / Time No Known Allergies Allergy Verified 03/15/25 07:54 Review of Systems 2 Review of Systems: Yes Unobtainable due to mental condition PMFSH Past Medical History Attestation statement: The following information was validated with the patient. Medical History Syncope Back pain Anemia Numbness and tingling in left arm Insomnia Chest pain Bulging lumbar disc Surgical History History of carpal tunnel surgery of right wrist H/O arthroscopy of left knee Social History Social History Household Members: Family Housing: House Are you a primary rn care transition to a significant other at home: No Do you presently have visiting nurse or other home services: No Alcohol intake: current Alcohol intake frequency: 3 or more drinks per day Alcohol type: beer Comment: 1:1 sitter at bedside Patient Tobacco Use Status: Current everyday Tobacco user Tobacco use type: Cigarette Cigarette Packs Per Day: 1 Cigarettes Per Day: 20.0 Years Smoked: 35 Use of substances other than those prescribed or required for medical reasons: Unknown Advance Directives: Yes Advance Directives on File: Yes Advance Directives Date on File: 08/28/24 service: No 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al status: unemployed 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 Physical Exam 2 Exam: Exam: At this time he is postictal he is protecting the airway Vital Signs: Vital Signs: Last Vital Signs Temp 98.6 F 03/15/25 10:45 Pulse 100 03/15/25 10:45 Resp 16 03/15/25 10:45 BP 132/80 03/15/25 10:45 Pulse Ox 97 03/15/25 10:45 O2 Del Method Room Air 03/15/25 10:45 BMI result Body Mass Index 18.7 Const: Other: Postictal Nutritional Appearance: average body habitus HEENT: Other: Abrasion in the face swelling of the nose General nose exam: Normal external nose present Mouth: Normal oral and palatal mucosa present Neck: Other: C-collar is on placed by EMS Resp: Effort & Inspection: normal respiratory effort Cardio: Other: Regular rate and rhythm tachycardic Rate: tachycardic Rhythm: regular rhythm GI: Other: Abdomen soft no distention Course Reevaluation(s) Reevaluation #1: On re-examination looks much much better he is awake and now he has knows that he is at the hospital he has arthritis is in the 90s now anticipate admission Time: 10:17 Reevaluation #2: Bicarb trending up clinically improving Time: 10:48 Reevaluation #3: Continued to improved seen by the hospitalist blood pressure much better 132/80 pulse is 100 afebrile lactic acid noted most likely is due to his alcoholic liver disease I do not think he is septic Time: 12:07 Medications Administered Discontinued Medications Generic Name Dose Route Start Last Admin Trade Name Freq PRN Reason Stop Dose Admin Diazepam 5 mg 03/15/25 08:14 03/15/25 08:15 Diazepam 10 Mg/2 Ml Cartridge IVPUSH 03/15/25 08:15 5 mg STAT STA Administration Sodium Chloride 1,000 mls @ 999 mls/hr 03/15/25 08:00 03/15/25 08:49 Ns IVCONT 03/15/25 09:00 Infused .Q1H1M JOHNATHAN Infusion Levetiracetam 2,000 mg/ Sodium 120 mls @ 480 mls/hr 03/15/25 08:04 03/15/25 09:05 Chloride IV 03/15/25 08:18 Infused ONCE ONE Infusion Magnesium Sulfate 2 gm in 50 mls @ 150 mls/hr 03/15/25 09:09 03/15/25 11:12 Magnesium Sulfate/H2o IV 03/15/25 09:28 Infused ONCE ONE Infusion Lactated Ringer's 1,000 mls @ 999 mls/hr 03/15/25 09:15 03/15/25 09:48 Lr IV 03/15/25 10:15 999 mls/hr .Q1H1M JOHNATHAN Administration Midazolam HCl 5 mg 03/15/25 08:04 03/15/25 08:31 Midazolam Hcl 5 Mg/Ml Vial IM 03/15/25 08:05 5 mg ONCE ONE Administration Phenobarbital Sodium 250 mg 03/15/25 09:00 03/15/25 08:30 Phenobarbital Sodium 130 Mg/Ml Im Once IM 03/15/25 09:01 250 mg ONCE ONE Administration Protocol Thiamine HCl 100 mg 03/15/25 10:18 03/15/25 11:21 Thiamine Hcl 100 Mg Tablet PO 03/15/25 10:19 100 mg ONCE ONE Administration Medical Decision Making Medical Decision Making [facility] Narrative: Patient presented after fall and alcohol withdrawal seizure, we will check blood work imaging of the head neck, we will administer phenobarbital, he already got the Versed IM Differential Diagnosis Differential Diagnoses: The differential diagnosis associated with the presentation includes Subdural hematoma/epidural hematoma/cervical spine fracture/alcohol withdrawal Admission/Observation Consideration of admission/observation: Escalation of care including admission/observation considered Lab Data [facility] Lab Attestation statement: I reviewed the patient's lab results. 03/15/25 07:41 03/15/25 10:05 Labs: Lab Results 03/15/25 03/15/25 03/15/25 Range/Units 07:40 07:41 07:47 WBC 12.3 H (4.8-10.8) X10*3/uL RBC 3.80 L (4.60-5.80) X10*6/uL Hgb 13.9 L (14.0-18.0) g/dl Hct 42.3 (42.0-52.0) % MCV 111.3 H (80.0-98.0) fL MCH 36.6 H (27.0-33.0) pg MCHC 32.9 (31.0-36.0) g/dl RDW 13.4 (11.0-16.0) % Plt Count 141 L (160-400) X10*3/uL MPV 10.7 (9.4-12.4) fL Immature Gran % (Auto) 0.6 H (0.0-0.4) % Neut % (Auto) 55.5 (45-73) % Lymph % (Auto) 27.6 (20-40) % Person % (Auto) 14.3 H (2-11) % Eos % (Auto) 0.9 (0-4) % Baso % (Auto) 1.1 (0-2) % Lymph # (Auto) 3.4 (1.2-4.9) X10*3/uL Person # (Auto) 1.8 H (0.1-1.2) X10*3/uL Eos # (Auto) 0.1 (0.0-0.4) X10*3/uL Baso # (Auto) 0.1 (0.0-0.2) X10*3/uL Abs Immat Gran (auto) 0.07 H (0.00-0.03) X10*3/uL Absolute Neuts (auto) 6.9 (2.0-8.3) x10*3/uL Absolute Nucleated RBC 0.000 (0.0-0.012) X10*3/uL Nucleated RBC % (auto) 0.0 (0.0-0.2) /100WBC Smear Tech's Comments VERIFIED Smear Path Review Cancelled Hold Purple Top SEE NOTE Hold Blue Top SEE NOTE VBG pH (7.32-7.43) VBG pCO2 mmHg VBG pO2 mmHg VBG HCO3 (22-26) mmol/L VBG O2 Saturation % VBG Base Excess mmol/L Sodium (135-145) mmol/L Potassium (3.3-5.1) mmol/L Chloride (96-108) mmol/L Carbon Dioxide (22-29) mmol/L Anion Gap (12-20) BUN (9-16) mg/dL Creatinine (0.5-1.4) mg/dL Estim Creat Clear Calc Estimated GFR POC Glucose 161 H (60-115) mg/dL Random Glucose (60-115) mg/dL Calcium (8.4-10.2) mg/dL Magnesium (1.6-2.6) mg/dL Total Bilirubin (0.0-1.0) mg/dL AST (5-37) U/L ALT (0-40) U/L Alkaline Phosphatase (39-117) U/L Total Creatine Kinase (38-174) U/L Troponin I High Sens 8.7 (<3.5-35.0) ng/L Total Protein (6.5-8.0) g/dL Albumin (3.5-5.0) g/dL Beta-Hydroxybutyrate (0.02-0.27) mmol/L Urine Opiates Screen (Not Detect) Ur Buprenorphine Scrn (Not Detect) ng/mL Ur Oxycodone Screen (Not Detect) ng/mL Urine Methadone Screen (Not Detect) ng/mL Urine Fentanyl Screen (Not Detect) Ur Barbiturates Screen (Not Detect) Ur Phencyclidine Scrn (Not Detect) Ur Amphetamines Screen (Not Detect) U Benzodiazepines Scrn (Not Detect) Urine Cocaine Screen (Not Detect) U Marijuana (THC) Screen (Not Detect) Ethyl Alcohol mg/dL 03/15/25 03/15/25 03/15/25 Range/Units 08:45 08:49 09:39 WBC (4.8-10.8) X10*3/uL RBC (4.60-5.80) X10*6/uL Hgb (14.0-18.0) g/dl Hct (42.0-52.0) % MCV (80.0-98.0) fL MCH (27.0-33.0) pg MCHC (31.0-36.0) g/dl RDW (11.0-16.0) % Plt Count (160-400) X10*3/uL MPV (9.4-12.4) fL Immature Gran % (Auto) (0.0-0.4) % Neut % (Auto) (45-73) % Lymph % (Auto) (20-40) % Person % (Auto) (2-11) % Eos % (Auto) (0-4) % Baso % (Auto) (0-2) % Lymph # (Auto) (1.2-4.9) X10*3/uL Person # (Auto) (0.1-1.2) X10*3/uL Eos # (Auto) (0.0-0.4) X10*3/uL Baso # (Auto) (0.0-0.2) X10*3/uL Abs Immat Gran (auto) (0.00-0.03) X10*3/uL Absolute Neuts (auto) (2.0-8.3) x10*3/uL Absolute Nucleated RBC (0.0-0.012) X10*3/uL Nucleated RBC % (auto) (0.0-0.2) /100WBC Smear Tech's Comments Smear Path Review Hold Purple Top Hold Blue Top VBG pH 7.21 L (7.32-7.43) VBG pCO2 23 mmHg VBG pO2 60 mmHg VBG HCO3 9 L (22-26) mmol/L VBG O2 Saturation 77.0 % VBG Base Excess -16.2 mmol/L Sodium 144 (135-145) mmol/L Potassium 4.2 (3.3-5.1) mmol/L Chloride 107 (96-108) mmol/L Carbon Dioxide 9 L* D (22-29) mmol/L Anion Gap 32 H (12-20) BUN 6 L (9-16) mg/dL Creatinine 0.83 (0.5-1.4) mg/dL Estim Creat Clear Calc 90.8 Estimated GFR > 60 POC Glucose (60-115) mg/dL Random Glucose 132 H (60-115) mg/dL Calcium 8.2 L (8.4-10.2) mg/dL Magnesium 1.2 L* (1.6-2.6) mg/dL Total Bilirubin 0.7 (0.0-1.0) mg/dL AST 223 H (5-37) U/L ALT 92 H (0-40) U/L Alkaline Phosphatase 94 (39-117) U/L Total Creatine Kinase 415 H (38-174) U/L Troponin I High Sens (<3.5-35.0) ng/L Total Protein 7.6 (6.5-8.0) g/dL Albumin 4.4 (3.5-5.0) g/dL Beta-Hydroxybutyrate 0.48 H (0.02-0.27) mmol/L Urine Opiates Screen Not Detected (Not Detect) Ur Buprenorphine Scrn Not Detected (Not Detect) ng/mL Ur Oxycodone Screen Not Detected (Not Detect) ng/mL Urine Methadone Screen Not Detected (Not Detect) ng/mL Urine Fentanyl Screen Not Detected (Not Detect) Ur Barbiturates Screen POSITIVE H (Not Detect) Ur Phencyclidine Scrn Not Detected (Not Detect) Ur Amphetamines Screen Not Detected (Not Detect) U Benzodiazepines Scrn POSITIVE H (Not Detect) Urine Cocaine Screen Not Detected (Not Detect) U Marijuana (THC) Screen Not Detected (Not Detect) Ethyl Alcohol 36 mg/dL 10/30/25 Range/Units 10:05 WBC (4.8-10.8) X10*3/uL RBC (4.60-5.80) X10*6/uL Hgb (14.0-18.0) g/dl Hct (42.0-52.0) % MCV (80.0-98.0) fL MCH (27.0-33.0) pg MCHC (31.0-36.0) g/dl RDW (11.0-16.0) % Plt Count (160-400) X10*3/uL MPV (9.4-12.4) fL Immature Gran % (Auto) (0.0-0.4) % Neut % (Auto) (45-73) % Lymph % (Auto) (20-40) % Person % (Auto) (2-11) % Eos % (Auto) (0-4) % Baso % (Auto) (0-2) % Lymph # (Auto) (1.2-4.9) X10*3/uL Person # (Auto) (0.1-1.2) X10*3/uL Eos # (Auto) (0.0-0.4) X10*3/uL Baso # (Auto) (0.0-0.2) X10*3/uL Abs Immat Gran (auto) (0.00-0.03) X10*3/uL Absolute Neuts (auto) (2.0-8.3) x10*3/uL Absolute Nucleated RBC (0.0-0.012) X10*3/uL Nucleated RBC % (auto) (0.0-0.2) /100WBC Smear Tech's Comments Smear Path Review Hold Purple Top Hold Blue Top VBG pH (7.32-7.43) VBG pCO2 mmHg VBG pO2 mmHg VBG HCO3 (22-26) mmol/L VBG O2 Saturation % VBG Base Excess mmol/L Sodium 142 (135-145) mmol/L Potassium 3.7 (3.3-5.1) mmol/L Chloride 108 (96-108) mmol/L Carbon Dioxide 12 L (22-29) mmol/L Anion Gap 26 H (12-20) BUN 6 L (9-16) mg/dL Creatinine 0.66 (0.5-1.4) mg/dL Estim Creat Clear Calc 114.2 Estimated GFR > 60 POC Glucose (60-115) mg/dL Random Glucose 103 (60-115) mg/dL Calcium 7.9 L (8.4-10.2) mg/dL Magnesium (1.6-2.6) mg/dL Total Bilirubin 0.8 (0.0-1.0) mg/dL AST 208 H (5-37) U/L ALT 84 H (0-40) U/L Alkaline Phosphatase 85 (39-117) U/L Total Creatine Kinase (38-174) U/L Troponin I High Sens (<3.5-35.0) ng/L Total Protein 7.2 (6.5-8.0) g/dL Albumin 3.9 (3.5-5.0) g/dL Beta-Hydroxybutyrate (0.02-0.27) mmol/L Urine Opiates Screen (Not Detect) Ur Buprenorphine Scrn (Not Detect) ng/mL Ur Oxycodone Screen (Not Detect) ng/mL Urine Methadone Screen (Not Detect) ng/mL Urine Fentanyl Screen (Not Detect) Ur Barbiturates Screen (Not Detect) Ur Phencyclidine Scrn (Not Detect) Ur Amphetamines Screen (Not Detect) U Benzodiazepines Scrn (Not Detect) Urine Cocaine Screen (Not Detect) U Marijuana (THC) Screen (Not Detect) Ethyl Alcohol mg/dL Independent Interpretation I performed an independent interpretation of an: EKG and CT Scan (I reviewed the CT scan of the head no bleed no subdural no epidural no intra cerebral bleed, I reviewed also the CT of the C-spine and the fracture no dislocation to my reading) Interpretation: EKG was reviewed interpreted by me as sinus tachycardia rate 134 Independent Historian Clinical information obtained from an independent historian. History obtained from or confirmed by: EMS Spoke at length with the EMS External Record Review External record reviewed: Inpatient record Chronic Conditions Patient?s care impacted by: Other (Alcohol abuse) Social Determinants Alcohol use disorder Critical Care Time Critical Care Time Critical Care Time: Yes Total Critical Care Time: 90 Attestation: IV diazepam, IM Versed, I am phenobarbital/talking to the EMS/tachycardic with the patient Discharge Plan Discharge Clinical Impression: Hypomagnesemia, Metabolic acidosis Alcohol withdrawal Qualifiers: Complication of substance-induced condition: uncomplicated Qualified Code(s): F 10930 - Alcohol use, unspecified with withdrawal, uncomplicated Alcohol withdrawal seizure Qualifiers: Complication of substance-induced condition: uncomplicated Qualified Code(s): F 10.930 - Alcohol use, unspecified with withdrawal, uncomplicated Fracture of nasal bone Qualifiers: Encounter type: initial encounter Patient Disposition: Admitted As Inpatient
[2025-03-15 08:11] LABS: Hematocrit 42.3 % (42.0-52.0); Hemoglobin 13.9 g/dl (14.0-18.0); Imm Gran Abs Auto 0.07 X10*3/uL (0.00-0.03); Imm Gran Pct Auto 0.6 % (0.0-0.4); Lymphocytes Absolute Auto 3.4 X10*3/uL (1.2-4.9); MANUAL DIFF FLAG SCAN; Mean Corpuscular HGB Conc 32.9 g/dl (31.0-36.0); Mean Corpuscular Hemoglobin 36.6 pg (27.0-33.0); NRBC Abs Auto 0.000 X10*3/uL (0.0-0.012); NRBC Pct Auto 0.0 /100WBC (0.0-0.2); Platelet Count 141 X10*3/uL (160-400); Red Blood Count 3.80 X10*6/uL (4.60-5.80); SCAN SMEAR FLAG 1; White Blood Count 12.3 X10*3/uL (4.8-10.8)
[2025-03-15 08:12] LABS: Mean Corpuscular Volume 111.3 fL (80.0-98.0)
[2025-03-15] MEDS: diazePAM 10 MG/2 ML CARTRIDGE 5 MG IVPUSH (08:15)
[2025-03-15] MEDS: PHENobarbitaL sodium 130 MG/ML IM ONCE 250 MG IM (08:30)
[2025-03-15 08:32] LABS: Troponin-I High Sensitivity 8.7 ng/L (<3.5-35.0)
[2025-03-15 08:57] LABS: VBG HCO3 9 mmol/L (22-26); VBG O2 % Saturation 77.0 %
[2025-03-15 08:58] LABS: Venous Blood Gas Refer to POC result
--- NOTE | 2025-03-15 09:04 | PC.NURSE ---
Pt arrived via EMS at 0745, staff alerted pt started to seize on EMS stretcher, this RN administered IM Versed per verbal order of Dr. Avina at 0745, EMS holding C-Spine d/t collar being removed during seizure. Pt is well known to ED for ETOH/ Seizures. Per EMS pt had 2 falls this morning, refusal signed for first EMS, 911 called again for second fall, pt noted to have swollen nose, lac noted, bleeding on face, once cleaned up noted to be from bridge of his nose. Pt placed in ED4, seizing had stopped however pt was not responding to sternal rubs, noted to be agonal/ shallow breathing, foamy sputum noted to be coming from mouth. Resp at bedside, pt o2 9 RA, collar placed back on per MD Avina. IV placed at this time in Left FA, IVF started, pt trialed for airway protection with this RN and resp at bedside to see if he could tolerate CT scan. Pt able to tolerate laying flat, this RN placed on portable monitor, and remained in CT with pt in leads. Pt needing redirection multiple times in CT, MD at bedside, verbal order given for 5mg Valium while in CT, given while in scan, pt continued to need redirection, chest xray attempted to be taken while in CT with staff. This RN and tech brought pt back to room 4, phenobarb given per order, keppra hung and given per order. Second IV obtained. Seizure precautions maintained. C-collar removed via at 0915. [place] cath in place. Pt is only alert to date, stating he is in a space ship at 0930, this RN went into room to get pt finished changing over, pt is now more alert and oriented, he knows where he is, and the date, but he is unable to remember what happened this morning, pt updated to what has happened and the plan that is in place. at this time, going to hang MAR orders for IVF, and repeat labs once ordered by
[2025-03-15 09:10] LABS: Alanine Aminotransferase 92 U/L (0-40); Albumin Level 4.4 g/dL (3.5-5.0); Alkaline Phosphatase 94 U/L (39-117); Anion Gap 32 (12-20); Aspartate Amino Transferase 223 U/L (5-37); Blood Urea Nitrogen 6 mg/dL (9-16); Calcium 8.2 mg/dL (8.4-10.2); Carbon Dioxide 9 mmol/L (22-29); Chloride 107 mmol/L (96-108); Creatinine Clr Calc Pharmacy 90.8; Estimated Glomerular Filt Rate > 60; Magnesium 1.2 mg/dL (1.6-2.6); Potassium 4.2 mmol/L (3.3-5.1); Sodium 144 mmol/L (135-145); Total Protein 7.6 g/dL (6.5-8.0)
[2025-03-15] MEDS: Lactated Ringers 1,000 ML 999 ML IV (09:48)
[2025-03-15] MEDS: Magnesium Sulfate/H2O 2 GM/50 ML PIGGYBACK IV (09:49)
[2025-03-15 09:54] LABS: Cannabinoid Screen Urine Not Detected (Not Detect)
--- NOTE | 2025-03-15 09:55 | PC.NURSE ---
Dr. Avina gave verbal orders to order CMP and VBG at this time orders placed.
--- OUTSIDE RECORDS SUMMARY | 2025-03-15 10:17 | XMS_ITS | Clinical Summary ---
Author Organization [facility] Address [address] [place] [address] Care Team Providers Care Chemical Dependency Professional Name Role Phone Unavailable Primary Care Provider Unavailabl e Active Problems Problem Noted Date Diagnosed Date Anemia 12/27/2024 Alcohol use disorder 12/27/2024 COPD (chronic obstructive pulmonary disease) Tobacco dependence 03/08/2018 Lung nodule 02/12/2018 Encounters Date Type Department Care Team Description 01/17/2025 Population Health Risk Score [facility] ([facility]) Department [address] [id number] Provider, Population Health Generic 01/01/2025 Telephone [facility] [address] [place] [id number] Romina Diaz DO Chart Prep 12/28/2024 Telephone [facility] [address] [place] [phone] Diomedes Suarez MD 12/26/2024 Patient Outreach [facility] [address] [place] [id number] Romina Diaz DO Pre-visit Planning (Unable to complete) from Last 3 Months Immunizations Immunization Administration [...] EDT Gender Identity Choose not to disclose 5 3:22 PM EDT Sexual Orientation Don't know [...] Additional history exists Influenza Vaccine (#1) 2025 1, 01/24/2020, 03/13/2016 RSV Patients and Patients Aged [...] patient's age to complete this topic Insurance [facility] C3
[2025-03-15 10:37] LABS: Alanine Aminotransferase 84 U/L (0-40); Albumin Level 3.9 g/dL (3.5-5.0); Alkaline Phosphatase 85 U/L (39-117); Aspartate Amino Transferase 208 U/L (5-37); Blood Urea Nitrogen 6 mg/dL (9-16); Calcium 7.9 mg/dL (8.4-10.2); Creatinine Clr Calc Pharmacy 114.2; Estimated Glomerular Filt Rate > 60; Total Protein 7.2 g/dL (6.5-8.0)
[2025-03-15 10:45] LABS: Anion Gap 26 (12-20); Carbon Dioxide 12 mmol/L (22-29); Chloride 108 mmol/L (96-108); Potassium 3.7 mmol/L (3.3-5.1); Sodium 142 mmol/L (135-145)
--- NOTE | 2025-03-15 11:08 | PC.NURSE ---
This RN called lab at this time d/t VBG not resulting and labs were sent down at 1005, per Tech Rocco, VBG and CMP were sent in the same back, lab reporting they never received the VBG, at this time VBG and Lactic being drawn now.
[2025-03-15 11:25] LABS: Venous Blood Gas Refer to POC result
[2025-03-15 11:26] LABS: VBG HCO3 19 mmol/L (22-26); VBG O2 % Saturation 99.0 %
--- NOTE | 2025-03-15 11:36 | PM.IMHP ---
History of Present Illness Date of Service: 03/15/25 Attending physician on admission: Elma Hussein Chief Complaint: seizure This is a 55-year-old male with a history of alcohol use disorder who was brought to the emergency department after a fall. Patient lives with his parents who initially heard him fall and called 911, he initially refused transport this morning. He was called back a 2nd time and allowed transport. In route to the hospital patient had a seizure, received IM Versed and then after establishing IV access IV Valium. In the emergency department he was initially tachycardic and postictal. He was started on phenobarbital protocol and received IV fluid. Gradually his mental status improved in his heart rate trended down. He is now awake, alert but unable to say what happened to him. He reports that he drinks 2 beers per week with the last drink being yesterday. His alcohol level in the emergency department was 36. Lab work significant for severe acidosis with a bicarb of 9 and anion gap of 32, VBG confirmed low bicarb with a pH of 7.21. Repeat labs showed improvement of bicarb to 12 and improvement in anion gap down to 26. CT scan of the brain showed old stroke but also concern for subacute stroke. Patient denies any weakness in his arms or legs, denies difficulty swallowing or change in speech. No focal neurological changes were noted. Review of Systems Review of Systems: Yes all other systems are reviewed and are negative Constitutional: Constitutional: Denies chills and Denies fever(s) ENT: Denies dizziness Cardiovascular: Cardiovascular: Denies chest pain and Denies palpitations Neurologic: Denies dizziness Endocrine: Endocrine: Denies palpitations [facility] Medical History Syncope Back pain Anemia Numbness and tingling in left arm Insomnia Chest pain Bulging lumbar disc Surgical History History of carpal tunnel surgery of right wrist H/O arthroscopy of left knee Social History Household Members: Family Housing: House Are you a primary lawn care specialist to a significant other at home: No Do you presently have visiting nurse or other home services: No Alcohol intake: current Alcohol intake frequency: 3 or more drinks per day Alcohol type: beer Comment: 1:1 sitter at bedside Patient Tobacco Use Status: Current everyday Tobacco user Tobacco use type: Cigarette Cigarette Packs Per Day: 1 Cigarettes Per Day: 20.0 Years Smoked: 35 Use of substances other than those prescribed or required for medical reasons: Unknown Advance Directives: Yes Advance Directives on File: Yes Advance Directives Date on File: 08/28/24 service: No 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al status: unemployed 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 Allergies Allergy/AdvReac Type Severity Reaction Status Date / Time No Known Allergies Allergy Verified 03/15/25 07:54 Active Medications: Current Medications Folic Acid (Folic Acid 1 Mg Tablet) 1 mg PO DAILY [facility] Dextrose/Sodium Chloride (D5ns) 1,000 mls @ 125 mls/hr IVCONT .Q8H [facility] Pharmacy Consult (Consult Rx Etoh Phenob Im/Po) 1 each MISCELLANE ONCE PRN; Protocol PRN Reason: Consult order Phenobarbital (Phenobarbital 15 Mg Tablet) 45 mg PO BID [facility]; Protocol Stop: 03/17/25 09:01 Phenobarbital (Phenobarbital 30 Mg Tablet) 30 mg PO BID [facility]; Protocol Stop: 03/19/25 09:01 Phenobarbital (Phenobarbital 30 Mg Tablet) 30 mg PO DAILY [facility]; Protocol Stop: 03/21/25 09:01 Phenobarbital Sodium (Phenobarbital Sodium 130 Mg/Ml Vial Im Q3hx2) 187 mg IM Q3H [facility]; Protocol Stop: 03/15/25 15:01 Thiamine HCl (Thiamine Hcl 100 Mg Tablet) 100 mg PO DAILY [facility] Physical Exam Vital Signs and Narrative: Vital Signs: Last Vital Signs Temp 98.6 F 03/15/25 10:45 Pulse 100 03/15/25 10:45 Resp 16 03/15/25 10:45 BP 132/80 03/15/25 10:45 Pulse Ox 97 03/15/25 10:45 O2 Del Method Room Air 03/15/25 10:45 BMI result Body Mass Index 18.7 Const: General: cooperative, comfortable, alert and awake Nutritional Appearance: average body habitus Orientation/consciousness: patient oriented x3 Resp: Effort & Inspection: normal respiratory effort, able to speak in complete sentences, no respiratory distress and no use of accessory muscles Cardio: Rate: regular rate GI: Inspection: No distended Palpation (GI): Soft to palpation and nontender Skin: Other: abrasion to nasal bone Neuro: Other: grossly nonfocal; moving all extremities spontaneously, face symmetrical, tongue midline, speech clear General: patient oriented x3 Results Labs 03/15/25 07:41 03/15/25 10:05 Labs: Laboratory Results - last 24 hr 03/15/25 03/15/25 03/15/25 07:40 07:41 07:47 MCV 111.3 H MCH 36.6 H MCHC 32.9 RDW 13.4 Plt Count 141 L MPV 10.7 Immature Gran % (Auto) 0.6 H Neut % (Auto) 55.5 Lymph % (Auto) 27.6 Hardeman % (Auto) 14.3 H Eos % (Auto) 0.9 Baso % (Auto) 1.1 Lymph # (Auto) 3.4 Hardeman # (Auto) 1.8 H Eos # (Auto) 0.1 Baso # (Auto) 0.1 Abs Immat Gran (auto) 0.07 H Absolute Neuts (auto) 6.9 Absolute Nucleated RBC 0.000 Nucleated RBC % (auto) 0.0 Smear Tech's Comments VERIFIED Smear Path Review Cancelled Hold Purple Top SEE NOTE Hold Blue Top SEE NOTE VBG pH VBG pCO2 VBG pO2 VBG HCO3 VBG O2 Saturation VBG Base Excess Anion Gap Estim Creat Clear Calc Estimated GFR POC Glucose 161 H Random Glucose Calcium Magnesium Total Bilirubin AST ALT Alkaline Phosphatase Total Creatine Kinase Troponin I High Sens 8.7 Total Protein Albumin Beta-Hydroxybutyrate Urine Opiates Screen Ur Buprenorphine Scrn Ur Oxycodone Screen Urine Methadone Screen Urine Fentanyl Screen Ur Barbiturates Screen Ur Phencyclidine Scrn Ur Amphetamines Screen U Benzodiazepines Scrn Urine Cocaine Screen U Marijuana (THC) Screen Ethyl Alcohol 03/15/25 03/15/25 03/15/25 08:45 08:49 09:39 MCV MCH MCHC RDW Plt Count MPV Immature Gran % (Auto) Neut % (Auto) Lymph % (Auto) Hardeman % (Auto) Eos % (Auto) Baso % (Auto) Lymph # (Auto) Hardeman # (Auto) Eos # (Auto) Baso # (Auto) Abs Immat Gran (auto) Absolute Neuts (auto) Absolute Nucleated RBC Nucleated RBC % (auto) Smear Tech's Comments Smear Path Review Hold Purple Top Hold Blue Top VBG pH 7.21 L VBG pCO2 23 VBG pO2 60 VBG HCO3 9 L VBG O2 Saturation 77.0 VBG Base Excess -16.2 Anion Gap 32 H Estim Creat Clear Calc 90.8 Estimated GFR > 60 POC Glucose Random Glucose 132 H Calcium 8.2 L Magnesium 1.2 L* Total Bilirubin 0.7 AST 223 H ALT 92 H Alkaline Phosphatase 94 Total Creatine Kinase 415 H Troponin I High Sens Total Protein 7.6 Albumin 4.4 Beta-Hydroxybutyrate 0.48 H Urine Opiates Screen Not Detected Ur Buprenorphine Scrn Not Detected Ur Oxycodone Screen Not Detected Urine Methadone Screen Not Detected Urine Fentanyl Screen Not Detected Ur Barbiturates Screen POSITIVE H Ur Phencyclidine Scrn Not Detected Ur Amphetamines Screen Not Detected U Benzodiazepines Scrn POSITIVE H Urine Cocaine Screen Not Detected U Marijuana (THC) Screen Not Detected Ethyl Alcohol 36 03/15/25 03/15/25 10:05 11:21 MCV MCH MCHC RDW Plt Count MPV Immature Gran % (Auto) Neut % (Auto) Lymph % (Auto) Hardeman % (Auto) Eos % (Auto) Baso % (Auto) Lymph # (Auto) Hardeman # (Auto) Eos # (Auto) Baso # (Auto) Abs Immat Gran (auto) Absolute Neuts (auto) Absolute Nucleated RBC Nucleated RBC % (auto) Smear Tech's Comments Smear Path Review Hold Purple Top Hold Blue Top VBG pH 7.53 H VBG pCO2 22 VBG pO2 103 VBG HCO3 19 L VBG O2 Saturation 99.0 VBG Base Excess -1.6 Anion Gap 26 H Estim Creat Clear Calc 114.2 Estimated GFR > 60 POC Glucose Random Glucose 103 Calcium 7.9 L Magnesium Total Bilirubin 0.8 AST 208 H ALT 84 H Alkaline Phosphatase 85 Total Creatine Kinase Troponin I High Sens Total Protein 7.2 Albumin 3.9 Beta-Hydroxybutyrate Urine Opiates Screen Ur Buprenorphine Scrn Ur Oxycodone Screen Urine Methadone Screen Urine Fentanyl Screen Ur Barbiturates Screen Ur Phencyclidine Scrn Ur Amphetamines Screen U Benzodiazepines Scrn Urine Cocaine Screen U Marijuana (THC) Screen Ethyl Alcohol Imaging Radiologist's Impressions: Impressions Cervical Spine CT 03/15/25 08:09 IMPRESSION: No evidence of fracture or malalignment of the cervical spine. Degenerative changes. Electronically signed by: Sofie Mathews MD 03/15/2025 09:[address] 03/15/25 08:09 IMPRESSION: Nasal septum fracture and deviated nasal septum to the right. No other fractures seen. Mild inflammatory changes in the bilateral frontal, ethmoid and sphenoid sinus. Small radiopaque soft tissue foreign body in the right cheek/not acute, unchanged from old exam.. Electronically signed by: Sofie Mathews MD 03/15/2025 09:11 AM EDT RP Head CT 03/15/25 08:09 IMPRESSION: Old appearing brainstem infarct in the zeinab. Question more recent subacute infarct in the more anterior inferior brain stem/medulla versus artifact from the skull base. This could be evaluated with MRI if clinically warranted. Generalized atrophy and nonspecific periventricular white matter disease. No skull fracture or hemorrhage. Mild inflammatory changes in the frontal and ethmoid sinuses. Findings communicated to Dr. Avina by telephone 03/15/2025 at 9:10 AM. Electronically signed by: Sofie Mathews MD 03/15/2025 09:16 AM EDT RP Chest X-Ray 03/15/25 08:17 IMPRESSION: No evidence for acute disease in the chest. Well-inflated lungs. No evidence of pneumonia. Electronically signed by: Sofie Mathews MD 03/15/2025 08:39 AM EDT RP Shoulder X-Ray 03/15/25 09:40 IMPRESSION: Posttraumatic deformity of the proximal humerus without change. No acute abnormality is seen. Electronically signed by: Washington Sandoval MD 03/15/2025 09:51 AM EDT RP Assessment and Plan (1) Alcohol withdrawal: Qualifiers: Complication of substance-induced condition: uncomplicated Qualified Code(s): F10.930 - Alcohol use, unspecified with withdrawal, uncomplicated Status: Acute (2) Metabolic acidosis, increased anion gap: Status: Acute (3) Alcohol withdrawal seizure: Qualifiers: Complication of substance-induced condition: uncomplicated Qualified Code(s): F10.930 - Alcohol use, unspecified with withdrawal, uncomplicated; R56.9 - Unspecified convulsions Status: Acute Plan This is a 55-year-old male with history of alcohol withdrawal, history of DTs and alcohol withdrawal seizures who was brought to the emergency department after fall and seizure found to have severe metabolic acidosis Alcohol use disorder with acute alcohol withdrawal/alcohol withdrawal seizure Trend CIWA Continue phenobarbital protocol Thiamine, folic acid supplementation Addiction medicine consultation Seizures Multifactorial due to etoh withdrawal and h/o stroke reports was started on keppra by pcp, but has been non-compliant although don't see claim history, will discuss with pharmacy Seizure precautions, aspiration precautions Acute high anion gap metabolic acidosis Likely due to acute lactic acidosis from seizure. Not due to sepsis IV fluid follow BMP possible subacute stroke Neuro checks Neurology consult Check lipid profile PT/OT evaluation Mechanical fall Likely due to seizure PT eval prior to discharge Mild rhabdo due to fall and seizure renal function stable trend CPK hypomagnesemia due to etoh use received 2gm IV Continue p.o. replacement follow level Hypocalcemia Likely exacerbated by low magnesium levels Replace magnesium and repeat in a.m. Transaminitis Likely due to alcohol use Trend LFTs Tobacco dependence Smoking cessation advised NRT DVT prophylaxis-heparin Patient will likely require 2 midnight stay in the hospital for management of seizure, alcohol withdrawal and concern for recurrent stroke requiring close monitoring and specialist evaluation Med rec pending at the time of admission Quality Stroke Does the patient have a stroke diagnosis?: No VTE Prior VTE?: No VTE Risk Level:: Medical - moderate - high VTE Device Contraindication: N/A - Device Ordered VTE Drug Contraindication: N/A - Med Ordered
--- NOTE | 2025-03-15 11:38 | PM.NEUROCN ---
History of Present Illness Data of Consult Service Date: 03/15/25 Primary Care Provider: [facility] HPI Reason for consult: Seizure 55 years old man with alcoholism, head CT revealing multiple chronic ischemic infarction including signs of central pontine myelinolysis, and moderate cerebral atrophy, was brought to hospital after he had a seizure and apparently he had another seizure in ambulance. With initial event, he fell down and sustained some facial injuries. When I saw him, he was ?okay? stating that he was fine now. He said that he was prescribed a medicine for seizure disorder but it was not clear if he was taking it. Head CT was done that revealed some finding prompting this consultation. Review of Systems Review of Systems: As per HPI. No change in personality, headache, or cold or flu-like illness PMFSH Past Medical History Medical History Syncope Back pain Anemia Numbness and tingling in left arm Insomnia Chest pain Bulging lumbar disc Surgical History Surgical History History of carpal tunnel surgery of right wrist H/O arthroscopy of left knee Social History Social History Household Members: Family Housing: House Are you a primary transitional care liaison to a significant other at home: No Do you presently have visiting nurse or other home services: No Alcohol intake: current Alcohol intake frequency: 3 or more drinks per day Alcohol type: beer Comment: 1:1 sitter at bedside Patient Tobacco Use Status: Current everyday Tobacco user Tobacco use type: Cigarette Cigarette Packs Per Day: 1 Cigarettes Per Day: 20.0 Years Smoked: 35 Use of substances other than those prescribed or required for medical reasons: Unknown Advance Directives: Yes Advance Directives on File: Yes Advance Directives Date on File: 08/28/24 service: No 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al status: unemployed 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 Allergies Allergy/AdvReac Type Severity Reaction Status Date / Time No Known Allergies Allergy Verified 03/15/25 07:54 Active Medications: Current Medications Folic Acid (Folic Acid 1 Mg Tablet) 1 mg PO DAILY [facility] Dextrose/Sodium Chloride (D5ns) 1,000 mls @ 125 mls/hr IVCONT .Q8H [facility] Pharmacy Consult (Consult Rx Etoh Phenob Im/Po) 1 each MISCELLANE ONCE PRN; Protocol PRN Reason: Consult order Phenobarbital (Phenobarbital 15 Mg Tablet) 45 mg PO BID [facility]; Protocol Stop: 03/17/25 09:01 Phenobarbital (Phenobarbital 30 Mg Tablet) 30 mg PO BID [facility]; Protocol Stop: 03/19/25 09:01 Phenobarbital (Phenobarbital 30 Mg Tablet) 30 mg PO DAILY [facility]; Protocol Stop: 03/21/25 09:01 Phenobarbital Sodium (Phenobarbital Sodium 130 Mg/Ml Vial Im Q3hx2) 187 mg IM Q3H [facility]; Protocol Stop: 03/15/25 15:01 Thiamine HCl (Thiamine Hcl 100 Mg Tablet) 100 mg PO DAILY [facility] Physical Exam Vital Signs: Vital Signs: Last Vital Signs Temp 98.6 F 03/15/25 10:45 Pulse 100 03/15/25 10:45 Resp 16 03/15/25 10:45 BP 132/80 03/15/25 10:45 Pulse Ox 97 03/15/25 10:45 O2 Del Method Room Air 03/15/25 10:45 BMI result Body Mass Index 18.7 Neuro: Other: He is alert and awake with normal spontaneity of speech fluency comprehension and affect. There are multiple bruises on his face. No definite focal arm or leg weakness except that he said that his right arm was hurting and he was hesitant to move it. Plantars were flexor. Speech was normal. Results Labs 03/15/25 07:41 03/15/25 10:05 Labs: Short CBC 03/15/25 Range/Units 07:41 WBC 12.3 H (4.8-10.8) X10*3/uL Hgb 13.9 L (14.0-18.0) g/dl Hct 42.3 (42.0-52.0) % Plt Count 141 L (160-400) X10*3/uL BMP 03/15/25 03/15/25 08:45 10:05 Sodium 144 142 Potassium 4.2 3.7 Chloride 107 108 Carbon Dioxide 9 L* D 12 L BUN 6 L 6 L Creatinine 0.83 0.66 Calcium 8.2 L 7.9 L Cardiac Enzymes 03/15/25 Range/Units 08:45 Total Creatine Kinase 415 H (38-174) U/L Liver Function 03/15/25 03/15/25 Range/Units 08:45 10:05 Total Bilirubin 0.7 0.8 (0.0-1.0) mg/dL AST 223 H 208 H (5-37) U/L ALT 92 H 84 H (0-40) U/L Alkaline Phosphatase 94 85 (39-117) U/L Albumin 4.4 3.9 (3.5-5.0) g/dL [address] [address] [address] Scan Report Signed Patient: Chris Goodman MR#: [id number] : 1970 Acct:[id number] Age/Sex: 55 / M ADM Date: 03/15/25 Loc: HO.ED Attending Dr: Ordering Physician: Alec Avina MD Date of Service: 03/15/25 Procedure(s): CT head/brain wo IV con Accession Number(s): [id number] cc: [facility]; Alec Avina MD~ Report Number: [id number]: Total DLP = 0.00 mGy-cm Reason for Exam: trauma EXAMINATION: CT HEAD WITHOUT IV CONTRAST HISTORY: trauma. TECHNIQUE: Unenhanced helical CT of the head was performed per standard departmental protocol. Coronal and sagittal reformats of the head were also evaluated. One or more of the following techniques was used for dose reduction: Automated exposure control, adjustment of the mA and/or kV according to patient size, use of iterative reconstruction technique. Initial exam limited due to motion and repeat axial images obtained. DLP: 799+7 8 6 mgy/cm mGy-cm COMPARISON: Previous head CT scans most recent July 2024 FINDINGS: BRAIN: There is no evidence of an extra-axial collection. There is no evidence of intra or extra-axial hemorrhage. The ventricles and extra-axial CSF spaces are prominent suggestive of generalized atrophy. There is well-defined low attenuation seen in the zeinab suggestive of an old infarct. This is new in the interval from July 2024 exam however does not appear acute. There is question of more inferior ill-defined low attenuation in the brainstem/medulla. Appearance is questionable for a more recent or subacute infarct versus artifact from the skull base. No other mass, mass effect or infarct is seen. There is evidence of atherosclerotic disease. SINUSES: Inflammatory changes in the bilateral frontal and ethmoid sinuses. The mastoid air cells and middle ear cavities are well pneumatized. ORBITS: The visualized orbits are unremarkable. BONES/SOFT TISSUES: The extracranial soft tissues are unremarkable. The calvarium is intact. No suspicious lytic or sclerotic lesions. CT/CT head/brain wo IV con IMPRESSION: Old appearing brainstem infarct in the zeinab. Question more recent subacute infarct in the more anterior inferior brain stem/medulla versus artifact from the skull base. This could be evaluated with MRI if clinically warranted. Generalized atrophy and nonspecific periventricular white matter disease. No skull fracture or hemorrhage. Mild inflammatory changes in the frontal and ethmoid sinuses. Assessment and Plan (1) Seizure disorder: Status: Acute 55 years old man with chronic alcoholism with brain scan revealing moderately severe diffuse cerebral atrophy, multiple small ischemic infarcts, central pontine myelinolysis, which typically can happened with binge alcohol drinking, and seizure disorder. Seizure disorder epilepsy is common in this type of patient is more than alcohol withdrawal seizures. Mainstay of management is involvement of social media community manager, alcohol detox program, vitamin B12 and multivitamin supplementation including thiamine and folate, regular counseling and therapy, and maybe an antiepileptic, which could also help him as a mood stabilizer. Oxcarbazepine 150 or 300 mg twice a day can be used. He should not drive and be advised to be careful and not be involved in an activity that could put him in danger such as swimming alone or sitting in a soaking tub alone. (2) Multifactorial dementia: Status: Acute (3) Alcoholism: Status: Acute (4) Multiple cerebral infarctions: Status: Acute (5) Central pontine myelinolysis: Status: Acute Procedures Date of Service Date of Service: 03/15/25
[2025-03-15 12:09] LABS: Cholesterol 238 mg/dL (<200); HDL Cholesterol 94 mg/dL (>40); Triglycerides 88 mg/dL (<150)
[2025-03-15 13:22] LABS: Reflex Lactate? Lactic Acid Added
--- NOTE | 2025-03-15 13:30 | PC.NURSE ---
Olit sent to admitting provider Leilani, will hold previous ED order for D5NS and will administer LR per her order.
[2025-03-15 13:55] LABS: ~Lactic Acid-LAB USE ONLY 1.4 mmol/L (0.5-2.0)
--- NOTE | 2025-03-15 13:59 | PC.NURSE ---
Pt incontinent large loose stool, states he must have been sleep and thats why he didnt know. Pt able to follows commands, but continues to be confused to situation
[2025-03-15] MEDS: Nicotine 14 MG PATCH.TD24 TRANSDERMA (14:03)
[2025-03-15] MEDS: PHENobarbitaL sodium 130 MG/ML VIAL IM Q3Hx2 187 MG IM ×2 (14:05→19:40)
[2025-03-15] MEDS: Lactated Ringers 1,000 ML 125 ML IVCONT (14:08)
--- NOTE | 2025-03-15 14:39 | ECG_ITS ---
Test Reason : QT CHECK Blood Pressure : */* mmHG Vent. Rate : 89 BPM Atrial Rate : 89 BPM P-R Int : 158 ms QRS Dur : 100 ms QT Int : 402 ms P-R-T Axes : 76 64 73 degrees QTcB Int : 489 ms Sinus rhythm with occasional Premature ventricular complexes Prolonged QT Abnormal ECG When compared to the previous EKG of august 06 2024 Premature ventricular complexes are now Present Vent. rate has decreased by 45 bpm Nonspecific T wave abnormality now evident in Anterior leads Referred By: Alec Avina Electronically Signed By: MICHAEL MORALES
--- NOTE | 2025-03-15 14:51 | PHA.MEDREC ---
Addendum entered by Sharon Cody RPh 03/15/25 15:16: reviewed by [facility] Discussed with Natalie Yin that there is no history of seizure medication being filled. Last seizure medication was prescribed at [facility] in August when the patient got discahrged to rehab. No fills at [facility]. Original Note: Pharmacy Consult ? Medication Reconciliation Pharmacy unable to confirm med rec. Spoke with pt and he was a very poor historian with his medications. Pt confirmed with me he is only taking a Seizure medication that is starting with S and nothing else at this time , but after speaking with pt nurse, he told the nurse he is using a seizure medication starting with a C ; pt states he fills them at [facility] on [address] Called [facility], [facility] and [facility] on [address] in [place] and they all do not have any claims for seizure medications being filled for that pt; will notify provider and see what they say.
--- NOTE | 2025-03-15 15:31 | MHC.RECOVRN ---
Attempted to meet pt in ED4 after consult placed to Addiction Medicine for alcohol withdrawal with seizures On approach pt was laying in bed, with eye closed, in the process of having EKG completed. Pt required frequent redirection from writer technical publications as pt was often moving. Pt reports to this communications writer he drinks 2 beers, 1-2 times per week to manage pain after a recent shoulder surgery a few weeks ago . He was unable to recall if or what pain medication was prescribed. During interview pt would frequently close his eyes and appear to sleep but was in no apparent distress. Respirations remained even and unlabored. ACS team to continue to follow, will revisit pt at a later time to complete evaluation, and available as needed for ongoing support.
--- NOTE | 2025-03-15 16:12 | HO.NURTONUR ---
Pt came to ED this am secondary to fall x 2. Per ems the initial call to ems, transport was refused; the second call pt was amenable to coming into ED. EMS reprts pt had sz while enroute and was actively seizing upon arrival to ED. Pt was immediately medicated and sent to CT. Pt has know w/ C for etoh and etoh withdrawal seizures. Pt has been primarily post-ictal since being mediated. CIWA is currently 0 and pt is on phenobarb protocol. Pt has been incontinent of stool x 2 and has [place] cath in place.. Pt is more alert at this time and responsive to verbal stimuli but continues to remain hazy regarding situation.
[2025-03-15] MEDS: Thiamine HCL 200 MG in 0.9 % Sodium Chloride 100 ML 204 MG IV (18:26)
--- NOTE | 2025-03-15 19:45 | PC.NURSE ---
Assumed care of pt at 1900. Pt resting comfortably in stretcher. A&Ox3, denies pain, nausea. Pt have seizure precautions in place. LR infusing @ 125 mL/hr as ordered. Pt medicated as charted. Chair alarm attached to stretcher and on. Call whitten within reach.
--- NOTE | 2025-03-15 20:00 | PC.NURSE ---
Plan to discontinue LR, per Dr. Darling and continue with D5/NS.
[2025-03-16] VITALS (9 sets, daily range): BP systolic 98–161; BP diastolic 65–85; PULSE 75–96; RESP 17–20; TEMP 36.2–37.3; O2SAT 94–99
[2025-03-16] MEDS: Thiamine HCL 200 MG in 0.9 % Sodium Chloride 100 ML 204 MG IV ×2 (03:58→17:02)
[2025-03-16] MEDS: Lactated Ringers 1,000 ML 125 ML IVCONT ×2 (04:40→19:02)
[2025-03-16 07:55] LABS: Hemoglobin 12.2 g/dl (14.0-18.0); NRBC Abs Auto 0.000 X10*3/uL (0.0-0.012); NRBC Pct Auto 0.0 /100WBC (0.0-0.2); PLT CLUMP 1; SCAN SMEAR FLAG 1
[2025-03-16 07:56] LABS: Hematocrit 34.0 % (42.0-52.0); Imm Gran Abs Auto 0.06 X10*3/uL (0.00-0.03); Imm Gran Pct Auto 0.5 % (0.0-0.4); Lymphocytes Absolute Auto 1.2 X10*3/uL (1.2-4.9); MANUAL DIFF FLAG SCAN; Mean Corpuscular HGB Conc 35.9 g/dl (31.0-36.0); Mean Corpuscular Hemoglobin 36.5 pg (27.0-33.0); Mean Corpuscular Volume 101.8 fL (80.0-98.0); Red Blood Count 3.34 X10*6/uL (4.60-5.80)
[2025-03-16 08:01] LABS: White Blood Count 11.5 X10*3/uL (4.8-10.8)
[2025-03-16 08:06] LABS: Alanine Aminotransferase 59 U/L (0-40); Albumin Level 3.8 g/dL (3.5-5.0); Alkaline Phosphatase 82 U/L (39-117); Anion Gap 16 (12-20); Aspartate Amino Transferase 115 U/L (5-37); Blood Urea Nitrogen 3 mg/dL (9-16); Calcium 7.5 mg/dL (8.4-10.2); Carbon Dioxide 23 mmol/L (22-29); Chloride 101 mmol/L (96-108); Creatinine Clr Calc Pharmacy 165.1; Estimated Glomerular Filt Rate > 60; Magnesium 0.9 mg/dL (1.6-2.6); Potassium 2.6 mmol/L (3.3-5.1); Sodium 137 mmol/L (135-145); Total Protein 6.5 g/dL (6.5-8.0)
[2025-03-16 08:16] LABS: Platelet Count 89 X10*3/uL (160-400)
--- NOTE | 2025-03-16 08:22 | MHC.CM.PN ---
CM met with Patient at bedside. Patient lives in a 2 family house with his Parents; he helps to care for his Father. Patient will benefit from a PT Eval (S/P Fall) but he will not be eligible for VNA d/t no PCP(brochure to be provided). Patient lives in a 2 family house with his Parents and his Friend/Trevor will transport to home at [place]. Patient uses a cane to assist with mobility and his Brother/Lex is his HCP.
[2025-03-16] MEDS: Nicotine 14 MG PATCH.TD24 TRANSDERMA (09:09)
[2025-03-16] MEDS: Potassium Chloride/H20 10 MEQ/100 ML PIGGYBACK 100 MEQ IV ×4 (09:13→14:24)
--- NOTE | 2025-03-16 10:00 | HO.ADDICT_ITS ---
History of Present Illness Date of Service: 03/16/2025 Chief Complaint: etoh withdrawal seizures Reason for Consult: AUD Sources of Information: patient interviewed and chart reviewed HPI Narrative: Patient is a 55 year old male with AUD and history of alcohol withdrawal seizures. [place] [facility] [place] sustaining fall at home, and while in ED had a seizure. Patient seen in room 446. He is awake, alert, oriented to person, place and situation States that he fell in the dining room at home, and that is what brought him here. When asked about alcohol he says he drinks 2 Budweisers 2-3 times a week. He denies drinking daily. Reports a long history of alcohol use--started at 23 years old. States that he has cut down a lot over the years. Denies any withdrawal sx at this time Mild tremor noted, c/o abdominal pain and nausea. No diaphoresis or restlessness noted. Face with several abrasions CIWA scores have been low. ETOH level on admission was 36. Seen by neurology--CT scan showing moderately severe diffuse cerebral atrophy Medical Evaluation Reviewed: Yes Review of Systems Constitutional: Reports as per HPI Diagnostics Vital Signs (24Hr): Vital Signs - 24 hr 03/15/25 10:45 03/15/25 12:40 03/15/25 17:06 Temperature 98.6 F 97.7 F Pulse Rate 100 101 H 91 Respiratory Rate 16 17 15 Blood Pressure 132/80 125/66 143/82 H Pulse Oximetry 97 97 100 Oxygen Delivery Method Room Air Room Air Room Air 03/15/25 21:35 03/16/25 00:00 03/16/25 03:02 Temperature 99 F 99.2 F 98 F Pulse Rate 76 75 83 Respiratory Rate 18 18 18 Blood Pressure 152/72 H 140/83 H 142/85 H Pulse Oximetry 98 98 99 Oxygen Delivery Method Room Air Room Air Room Air 03/16/25 05:42 03/16/25 07:44 Temperature 98.1 F 98.1 F Pulse Rate 79 79 Respiratory Rate 18 Blood Pressure 133/85 161/84 H Pulse Oximetry 99 99 Oxygen Delivery Method Room Air Room Air BMI result Body Mass Index 20.8 Labs 03/16/25 07:21 03/16/25 07:21 Labs: Laboratory Results - last 48 hr 10/30/25 10/30/25 10/30/25 07:40 07:41 07:47 WBC 12.3 H RBC 3.80 L Hgb 13.9 L Hct 42.3 MCV 111.3 H MCH 36.6 H MCHC 32.9 RDW 13.4 Plt Count 141 L MPV 10.7 Immature Gran % (Auto) 0.6 H Neut % (Auto) 55.5 Lymph % (Auto) 27.6 [place] % (Auto) 14.3 H Eos % (Auto) 0.9 Baso % (Auto) 1.1 Lymph # (Auto) 3.4 [place] # (Auto) 1.8 H Eos # (Auto) 0.1 Baso # (Auto) 0.1 Abs Immat Gran (auto) 0.07 H Absolute Neuts (auto) 6.9 Absolute Nucleated RBC 0.000 Nucleated RBC % (auto) 0.0 Smear Tech's Comments VERIFIED Smear Path Review Cancelled Hold Purple Top SEE NOTE PT Cancelled INR Cancelled Hold Blue Top SEE NOTE VBG pH VBG pCO2 VBG pO2 VBG HCO3 VBG O2 Saturation VBG Base Excess Sodium Potassium Chloride Carbon Dioxide Anion Gap BUN Creatinine Estim Creat Clear Calc Estimated GFR POC Glucose 161 H Random Glucose Lactic Acid Lactic Acid F/U @ 2Hr Calcium Magnesium Total Bilirubin Direct Bilirubin AST ALT Alkaline Phosphatase Total Creatine Kinase Troponin I High Sens 8.7 Total Protein Albumin Triglycerides Cholesterol LDL Cholesterol, Calc HDL Cholesterol Beta-Hydroxybutyrate Urine Opiates Screen Ur Buprenorphine Scrn Ur Oxycodone Screen Urine Methadone Screen Urine Fentanyl Screen Ur Barbiturates Screen Ur Phencyclidine Scrn Ur Amphetamines Screen U Benzodiazepines Scrn Urine Cocaine Screen U Marijuana (THC) Screen Ethyl Alcohol 03/15/25 03/15/25 03/15/25 08:45 08:49 09:39 WBC RBC Hgb Hct MCV MCH MCHC RDW Plt Count MPV Immature Gran % (Auto) Neut % (Auto) Lymph % (Auto) [place] % (Auto) Eos % (Auto) Baso % (Auto) Lymph # (Auto) [place] # (Auto) Eos # (Auto) Baso # (Auto) Abs Immat Gran (auto) Absolute Neuts (auto) Absolute Nucleated RBC Nucleated RBC % (auto) Smear Tech's Comments Smear Path Review Hold Purple Top PT INR Hold Blue Top VBG pH 7.21 L VBG pCO2 23 VBG pO2 60 VBG HCO3 9 L VBG O2 Saturation 77.0 VBG Base Excess -16.2 Sodium 144 Potassium 4.2 Chloride 107 Carbon Dioxide 9 L* D Anion Gap 32 H BUN 6 L Creatinine 0.83 Estim Creat Clear Calc 90.8 Estimated GFR > 60 POC Glucose Random Glucose 132 H Lactic Acid Lactic Acid F/U @ 2Hr Calcium 8.2 L Magnesium 1.2 L* Total Bilirubin 0.7 Direct Bilirubin AST 223 H ALT 92 H Alkaline Phosphatase 94 Total Creatine Kinase 415 H Troponin I High Sens Total Protein 7.6 Albumin 4.4 Triglycerides Cholesterol LDL Cholesterol, Calc HDL Cholesterol Beta-Hydroxybutyrate 0.48 H Urine Opiates Screen Not Detected Ur Buprenorphine Scrn Not Detected Ur Oxycodone Screen Not Detected Urine Methadone Screen Not Detected Urine Fentanyl Screen Not Detected Ur Barbiturates Screen POSITIVE H Ur Phencyclidine Scrn Not Detected Ur Amphetamines Screen Not Detected U Benzodiazepines Scrn POSITIVE H Urine Cocaine Screen Not Detected U Marijuana (THC) Screen Not Detected Ethyl Alcohol 36 03/15/25 03/15/25 03/15/25 10:05 11:13 11:21 WBC RBC Hgb Hct MCV MCH MCHC RDW Plt Count MPV Immature Gran % (Auto) Neut % (Auto) Lymph % (Auto) [place] % (Auto) Eos % (Auto) Baso % (Auto) Lymph # (Auto) [place] # (Auto) Eos # (Auto) Baso # (Auto) Abs Immat Gran (auto) Absolute Neuts (auto) Absolute Nucleated RBC Nucleated RBC % (auto) Smear Tech's Comments Smear Path Review Hold Purple Top PT INR Hold Blue Top VBG pH 7.53 H VBG pCO2 22 VBG pO2 103 VBG HCO3 19 L VBG O2 Saturation 99.0 VBG Base Excess -1.6 Sodium 142 Potassium 3.7 Chloride 108 Carbon Dioxide 12 L Anion Gap 26 H BUN 6 L Creatinine 0.66 Estim Creat Clear Calc 114.2 Estimated GFR > 60 POC Glucose Random Glucose 103 Lactic Acid 4.7 H* Lactic Acid F/U @ 2Hr Calcium 7.9 L Magnesium Total Bilirubin 0.8 Direct Bilirubin AST 208 H ALT 84 H Alkaline Phosphatase 85 Total Creatine Kinase Troponin I High Sens Total Protein 7.2 Albumin 3.9 Triglycerides 88 Cholesterol 238 H LDL Cholesterol, Calc 127 H HDL Cholesterol 94 Beta-Hydroxybutyrate Urine Opiates Screen Ur Buprenorphine Scrn Ur Oxycodone Screen Urine Methadone Screen Urine Fentanyl Screen Ur Barbiturates Screen Ur Phencyclidine Scrn Ur Amphetamines Screen U Benzodiazepines Scrn Urine Cocaine Screen U Marijuana (THC) Screen Ethyl Alcohol 03/15/25 03/16/25 13:33 07:21 WBC 11.5 H RBC 3.34 L Hgb 12.2 L Hct 34.0 L MCV 101.8 H D MCH 36.5 H MCHC 35.9 RDW 12.6 Plt Count 89 L D MPV 10.8 Immature Gran % (Auto) 0.5 H Neut % (Auto) 72.1 Lymph % (Auto) 10.8 L [place] % (Auto) 15.3 H Eos % (Auto) 0.9 Baso % (Auto) 0.4 Lymph # (Auto) 1.2 [place] # (Auto) 1.8 H Eos # (Auto) 0.1 Baso # (Auto) 0.1 Abs Immat Gran (auto) 0.06 H Absolute Neuts (auto) 8.3 Absolute Nucleated RBC 0.000 Nucleated RBC % (auto) 0.0 Smear Tech's Comments VERIFIED Smear Path Review Hold Purple Top PT INR Hold Blue Top VBG pH VBG pCO2 VBG pO2 VBG HCO3 VBG O2 Saturation VBG Base Excess Sodium 137 Potassium 2.6 L* D Chloride 101 Carbon Dioxide 23 Anion Gap 16 BUN 3 L Creatinine 0.51 Estim Creat Clear Calc 165.1 Estimated GFR > 60 POC Glucose Random Glucose 77 Lactic Acid Lactic Acid F/U @ 2Hr 1.4 Calcium 7.5 L Magnesium 0.9 L* Total Bilirubin 1.7 H Direct Bilirubin 0.7 H AST 115 H ALT 59 H Alkaline Phosphatase 82 Total Creatine Kinase 825 H Troponin I High Sens Total Protein 6.5 Albumin 3.8 Triglycerides Cholesterol LDL Cholesterol, Calc HDL Cholesterol Beta-Hydroxybutyrate Urine Opiates Screen Ur Buprenorphine Scrn Ur Oxycodone Screen Urine Methadone Screen Urine Fentanyl Screen Ur Barbiturates Screen Ur Phencyclidine Scrn Ur Amphetamines Screen U Benzodiazepines Scrn Urine Cocaine Screen U Marijuana (THC) Screen Ethyl Alcohol Imaging Radiology Impressions: ITS Impressions Cervical Spine CT 03/15/25 08:09 IMPRESSION: No evidence of fracture or malalignment of the cervical spine. Degenerative changes. Electronically signed by: Sofie Mathews MD 03/15/2025 09:[address] 03/15/25 08:09 IMPRESSION: Nasal septum fracture and deviated nasal septum to the right. No other fractures seen. Mild inflammatory changes in the bilateral frontal, ethmoid and sphenoid sinus. Small radiopaque soft tissue foreign body in the right cheek/not acute, unchanged from old exam.. Electronically signed by: Sofie Mathews MD 03/15/2025 09:11 AM EDT RP Head CT 03/15/25 08:09 IMPRESSION: Old appearing brainstem infarct in the zeinab. Question more recent subacute infarct in the more anterior inferior brain stem/medulla versus artifact from the skull base. This could be evaluated with MRI if clinically warranted. Generalized atrophy and nonspecific periventricular white matter disease. No skull fracture or hemorrhage. Mild inflammatory changes in the frontal and ethmoid sinuses. Findings communicated to Dr. Avina by telephone 03/15/2025 at 9:10 AM. Electronically signed by: Sofie Mathews MD 03/15/2025 09:16 AM EDT RP Chest X-Ray 03/15/25 08:17 IMPRESSION: No evidence for acute disease in the chest. Well-inflated lungs. No evidence of pneumonia. Electronically signed by: Sofie Mathews MD 03/15/2025 08:39 AM EDT RP Shoulder X-Ray 03/15/25 09:40 IMPRESSION: Posttraumatic deformity of the proximal humerus without change. No acute abnormality is seen. Electronically signed by: Washington Sandoval MD 03/15/2025 09:51 AM EDT RP Mental Status Exam Mental Status Exam Patient Orientation: Person, Place and Situation Level of Consciousness: Awake and Alert Patient Behavior: Cooperative Affect Description: Calm Speech Pattern: Clear Thought Content: positive for [place] Judgement: Fair Medications Medications Current Medications Folic Acid (Folic Acid 1 Mg Tablet) 1 mg PO DAILY [facility] Last Admin: 03/16/25 09:09 Dose: 1 mg Heparin Sodium (Porcine) (Heparin Sodium,Porcine 5,000 Unit/Ml Vial) 5,000 unit SUBCUT Q12H [facility] Last Admin: 03/16/25 00:40 Dose: 5,000 unit Dextrose/Sodium Chloride (D5ns) 1,000 mls @ 125 mls/hr IVCONT .Q8H [facility] Last Admin: 03/16/25 04:45 Dose: Not Given Lactated Ringer's (Lr) 1,000 mls @ 125 mls/hr IVCONT .Q8H [facility] Last Admin: 03/16/25 04:40 Dose: 125 mls/hr Thiamine HCl 200 mg/ Sodium (Chloride) 102 mls @ 204 mls/hr IV Q12H [facility] Last Infusion: 03/16/25 04:30 Dose: Infused Potassium Chloride (Potassium Chloride/H20) 10 meq in 100 mls @ 100 mls/hr IV Q1H [facility] Stop: 03/16/25 12:44 Last Admin: 03/16/25 09:13 Dose: 100 mls/hr Magnesium Oxide (Magnesium Oxide 400 Mg Tablet) 800 mg PO BIDPC JOHNATHAN Nicotine (Nicotine 14 Mg Patch.Td24) 14 mg TRANSDERMA DAILY [facility] Last Admin: 03/16/25 09:09 Dose: 14 mg Oxcarbazepine (Oxcarbazepine 150 Mg Tablet) 150 mg PO BID [facility] Last Admin: 03/16/25 09:19 Dose: 150 mg Pharmacy Consult (Consult Rx Etoh Phenob Im/Po) 1 each MISCELLANE ONCE PRN; Protocol PRN Reason: Consult order Phenobarbital (Phenobarbital 15 Mg Tablet) 45 mg PO BID [facility]; Protocol Stop: 03/17/25 09:01 Last Admin: 03/16/25 09:09 Dose: 45 mg Phenobarbital (Phenobarbital 30 Mg Tablet) 30 mg PO BID [facility]; Protocol Stop: 03/19/25 09:01 Phenobarbital (Phenobarbital 30 Mg Tablet) 30 mg PO DAILY [facility]; Protocol Stop: 03/21/25 09:01 Allergies Allergies Allergy/AdvReac Type Severity Reaction Status Date / Time No Known Allergies Allergy Verified 03/15/25 07:54 Assessment & Plan Assessment & Plan (1) Alcohol use disorder, severe, dependence: Status: Acute Code(s): F10.20 - Alcohol dependence, uncomplicated Assessment and Plan: * withdrawal managed with phenobarbital * IV thiamine in place. can transition to PO at discharge * unclear how accurate/reliable patient report is * may benefit from additional supports given most recent CT scan findings * declines any follow up/referrals related to AUD, including ESME or ESME tx appt Total time managing care of this patient today __25__ minutes. [facility] Past Medical History Medical History Syncope Back pain Anemia Numbness and tingling in left arm Insomnia Chest pain Bulging lumbar disc Surgical History Surgical History History of carpal tunnel surgery of right wrist H/O arthroscopy of left knee Social History Social History Household Members: Family Housing: House Are you a primary healthcare management to a significant other at home: No Do you presently have visiting nurse or other home services: No Alcohol intake: current Alcohol intake frequency: 3 or more drinks per day Alcohol type: beer Comment: 1:1 sitter at bedside Patient Tobacco Use Status: Former Tobacco user Tobacco use type: Cigarette Cigarette Packs Per Day: 1 Cigarettes Per Day: 20.0 Years Smoked: 39 e-Cigarette/Vaping Use: Never Used Second Hand Smoke Exposure: No Advance Directives Date on File: 08/28/24 service: No 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al status: unemployed 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
--- NOTE | 2025-03-16 10:18 | HO.WOUND ---
Wound Consult: Initial 55yr old?male admitted to [facility] [place] on 03/15/25 - See progress notes and H&P for detailed history.? Wound consult placed for Face Abrasions.? Patient agreeable to assessment and photo documentation.? At the time of my consult patient reports he fell prior to admission but can not recall any of the details. There are several scabs noted along the bridge of the nose, forehead and cheeks, they remains stable and dry. Given they are stable dry scabs no topical recommendations are needed at this time. Should they open or begin to drain recommend vaseline application and dry dressing covering to be changed daily. However at this time they may remain MARTHA. Re-consult wound care Nurse for wound deterioration or wound changes.
--- NOTE | 2025-03-16 11:10 | MHC.STROKE ---
Met with patient in room 446. Pt awake, alert and oriented. Engaged in conversation. Pt with general complaints - reporting his IV was tender (had just received IV potassium) and general body aches. Stroke Education reviewed with patient. Pamphlet provided. Plan of care discussed including obtaining MRI. MRI screening form reviewed with patient. Medical history reviewed with patient. This included pt's medical conditions, medications, diet, exercise and social history. We discussed alcohol use. Pt reports that he is compliant with his medications and has a safe place to live. Plan is for MRI today and patient is agreeable to plan. Spoke with hospitalist to ensure that antiplatelet and statin were ordered. Will continue to assist as needed.
--- NOTE | 2025-03-16 12:50 | MHC.CM.PN ---
CM has asked CM Bait Maker, via Email for assistance in locating a PCP for Patient.
--- NOTE | 2025-03-16 14:39 | HO.PM.IMPN ---
Subjective Subjective Date of Service: 03/16/25 Interval History: Patient actually reports feeling better today compared to yesterday. He denies abdominal discomfort, shortness of breath, dyspnea, diaphoresis, retrosternal chest pressure No diarrhea, passing flatus. Patient does report pain around the right shoulder - relatively unchanged Review of Systems Review of Systems: Yes all other systems are reviewed and are negative Physical Exam Exam: Exam: General: A&O x3, oriented to time place person and situation, comfortable, no pain Cardiac: S1, S2 auscultated with no S3/4, no MRG. Well perfused. Respiratory: Normal breath sounds auscultated throughout all lung zones, without wheezing, rales. Normal rate. GI/ : No abdominal pain on palpation, no masses or distentions. MSK: Pain at the right shoulder, with reduced ROM Neurological: Normal neurological examination on overview, without obvious CN II-XII abnormalities. Skin: Excoriation around nose, some facial ecchymosis Vital Signs: Vital Signs: Last Vital Signs Temp 98.5 F 03/16/25 12:00 Pulse 86 03/16/25 12:00 Resp 18 03/16/25 12:00 BP 120/78 03/16/25 12:00 Pulse Ox 94 03/16/25 12:00 O2 Del Method Room Air 03/16/25 12:00 BMI result Body Mass Index 20.8 Objective Data Active Medications Aspirin (Aspirin 81 Mg Tab.Chew) 81 mg PO DAILY [facility] Last Admin: 03/16/25 10:47 Dose: 81 mg Documented By: DEJAN Folic Acid (Folic Acid 1 Mg Tablet) 1 mg PO DAILY [facility] Last Admin: 03/16/25 09:09 Dose: 1 mg Documented By: DEJAN Heparin Sodium (Porcine) (Heparin Sodium,Porcine 5,000 Unit/Ml Vial) 5,000 unit SUBCUT Q12H [facility] Last Admin: 03/16/25 10:47 Dose: 5,000 unit Documented By: DEJAN Lactated Ringer's (Lr) 1,000 mls @ 125 mls/hr IVCONT .Q8H [facility] Last Infusion: 03/16/25 14:31 Dose: Infused Documented By: DEJAN Thiamine HCl 200 mg/ Sodium (Chloride) 102 mls @ 204 mls/hr IV Q12H [facility] Last Infusion: 03/16/25 04:30 Dose: Infused Documented By: EMMA Magnesium Oxide (Magnesium Oxide 400 Mg Tablet) [facility] Nicotine (Nicotine 14 Mg Patch.Td24) 14 mg TRANSDERMA DAILY [facility] Last Admin: 03/16/25 09:09 Dose: 14 mg Documented By: DEJAN Oxcarbazepine (Oxcarbazepine 150 Mg Tablet) 150 mg PO BID [facility] Last Admin: 03/16/25 09:19 Dose: 150 mg Documented By: DEJAN Pharmacy Consult (Consult Rx Etoh Phenob Im/Po) 1 each MISCELLANE ONCE PRN; Protocol PRN Reason: Consult order Phenobarbital (Phenobarbital 15 Mg Tablet) 45 mg PO BID [facility]; Protocol Stop: 03/17/25 09:01 Last Admin: 03/16/25 09:09 Dose: 45 mg Documented By: DEJAN Phenobarbital (Phenobarbital 30 Mg Tablet) 30 mg PO BID [facility]; Protocol Stop: 03/19/25 09:01 Phenobarbital (Phenobarbital 30 Mg Tablet) 30 mg PO DAILY [facility]; Protocol Stop: 03/21/25 09:01 Pravastatin Sodium (Pravastatin Sodium 80 Mg Tablet) 80 mg PO DAILY [facility] Last Admin: 03/16/25 11:15 Dose: 80 mg Documented By: DEJAN Labs 03/16/25 07:21 03/16/25 07:21 Labs: Laboratory Results - last 24 hr 03/15/25 03/16/25 07:40 07:21 MCV 101.8 H D MCH 36.5 H MCHC 35.9 RDW 12.6 Plt Count 89 L D MPV 10.8 Immature Gran % (Auto) 0.5 H Neut % (Auto) 72.1 Lymph % (Auto) 10.8 L [place] % (Auto) 15.3 H Eos % (Auto) 0.9 Baso % (Auto) 0.4 Lymph # (Auto) 1.2 Bailey # (Auto) 1.8 H Eos # (Auto) 0.1 Baso # (Auto) 0.1 Abs Immat Gran (auto) 0.06 H Absolute Neuts (auto) 8.3 Absolute Nucleated RBC 0.000 Nucleated RBC % (auto) 0.0 Smear Tech's Comments VERIFIED PT Cancelled INR Cancelled Anion Gap 16 Estim Creat Clear Calc 165.1 Estimated GFR > 60 Random Glucose 77 Calcium 7.5 L Magnesium 0.9 L* Total Bilirubin 1.7 H Direct Bilirubin 0.7 H AST 115 H ALT 59 H Alkaline Phosphatase 82 Total Creatine Kinase 825 H Total Protein 6.5 Albumin 3.8 Assessment and Plan (1) Delirium tremens: Status: Acute (2) Alcoholism: Status: Acute (3) Alcohol use disorder, severe, dependence: Status: Acute (4) Alcohol withdrawal: Status: Acute (5) Fracture of nasal bone: Status: Acute (6) Hypomagnesemia: Status: Acute (7) Hypokalemia: Status: Acute (8) Metabolic acidosis, increased anion gap: Status: Acute (9) Acidosis, lactic: Status: Acute (10) Fracture, humerus, proximal: Status: Acute (11) Shoulder fracture, right: Status: Acute (12) Multiple cerebral infarctions: Status: Acute (13) Multifactorial dementia: Status: Acute (14) Seizure disorder: Status: Acute (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 No evidence of delirium tremens PLAN - Trend CIWA - Continue phenobarbital protocol - Thiamine, folic acid supplementation - Addiction medicine consultation Seizure Disorder Multifactorial etiology due to etoh withdrawal, prior CVAs, central pontine myelinolysis Patient was started on Keppra by PCP Patient has not been compliant with medications Evaluation by Neurology regarding seizure disorder, with recommendations to place patient on oxcarbazepine PLAN - continue oxcarbazepine 150 mg b.i.d. p.o. - discontinue Keppra - neurology recommendations appreciated - continue seizure precautions - aspiration precautions - p.r.n. diazepam for seizures Acute high anion gap metabolic acidosis - resolved - Lactic acidosis: Likely due to acute lactic acidosis from seizure. Not due to sepsis - Ketosis; elevated beta hydroxybutyrate possibly 2/2 ETOH versus malnourishment PLAN - IVF - encourage hydration and p.o. intake Subacute Brainstem infarct Old pontine stroke Subacute CVA ncidentally identified on CT brain 03/15/2025 on admission. PLAN - neurology recommendations appreciated - aspirin 81 mg a day p.o. - pravastatin 80 mg OD p.o. - neuro checks - speech and swallow evaluation - PT/OT evaluation - MRI brain Mechanical fall Fractured nasal bridge Multifactorial fall; likely 2/2 mechanical element, as well as intoxication. Possibly 2/2 central pontine myelinolysis with imbalance/ element of Wernicke or Korsakoff encephalopathy PLAN - fall precautions - seizure precautions - PT evaluation and OT evaluation - high-dose thiamine infusion IV Traumatic rhabdomyolysis Suffered with fall, with increasing CK from 400-800. No evidence of acute kidney injury or other organ dysfunction PLAN - trend BMP - LR 100 cc/hour - trend CPK Hypomagnesemia Hypokalemia 2/2 malnourishment in the setting of severe ETOH use PLAN - K> 4 - mg > 2 - magnesium 800 b.i.d. p.o. - 2 g IV - Repeat levels urgently Hypocalcemia Likely exacerbated by low magnesium levels Replace magnesium and repeat in a.m. Alcoholic hepatitis Hyperbilirubinemia In the setting of ETOH abuse. Maddrey score within normal limits-no indication for at this time. No evidence of cirrhosis ascites or hepatic encephalopathy. No evidence of acute decompensated but by alcoholic hepatitis. Trend LFTs Avoid hepatotoxins Tobacco dependence Smoking cessation advised NRT QUALITY METRICS - VTE: Heparin 5000 t.i.d. SQ - CODE STATUS: Full code - DIET: Regular Total time managing care of this patient today: 45 minutes. Quality Stroke Does the patient have a stroke diagnosis?: No VTE Prior VTE?: No VTE Risk Level:: Medical - moderate - high VTE Device Contraindication: N/A - Device Ordered VTE Drug Contraindication: N/A - Med Ordered
[2025-03-16] MEDS: Magnesium Sulfate/H2O 2 GM/50 ML PIGGYBACK IV (17:02)
[2025-03-16 18:15] LABS: Anion Gap 15 (12-20); Blood Urea Nitrogen 8 mg/dL (9-16); Calcium 7.8 mg/dL (8.4-10.2); Carbon Dioxide 26 mmol/L (22-29); Chloride 99 mmol/L (96-108); Creatinine Clr Calc Pharmacy 138.0; Estimated Glomerular Filt Rate > 60; Magnesium 0.9 mg/dL (1.6-2.6); Potassium 3.2 mmol/L (3.3-5.1); Sodium 137 mmol/L (135-145)
[2025-03-16 20:42] LABS: Glucose, Whole Blood 136 mg/dL (60-115)
[2025-03-17] VITALS (7 sets, daily range): BP systolic 129–177; BP diastolic 84–90; PULSE 86–103; RESP 16–18; TEMP 36.1–36.9; O2SAT 97–99
[2025-03-17] LABS: Anion Gap 14 (12-20); Blood Urea Nitrogen 7 mg/dL (9-16); Calcium 7.9 mg/dL (8.4-10.2); Carbon Dioxide 26 mmol/L (22-29); Chloride 98 mmol/L (96-108); Creatinine Clr Calc Pharmacy 145.2; Estimated Glomerular Filt Rate > 60; Magnesium 1.3 mg/dL (1.6-2.6); Potassium 2.8 mmol/L (3.3-5.1); Sodium 135 mmol/L (135-145)
[2025-03-17] MEDS: Potassium Chloride Packet 20 MEQ PACKET 40 MEQ PO (00:37)
[2025-03-17] MEDS: Magnesium Sulfate/H2O 2 GM/50 ML PIGGYBACK IV (00:37)
[2025-03-17] MEDS: Potassium Chloride/H20 10 MEQ/100 ML PIGGYBACK 100 MEQ IV (01:38)
[2025-03-17] MEDS: diazePAM 10 MG/2 ML CARTRIDGE 5 MG IVPUSH (02:24)
[2025-03-17] MEDS: diazePAM 10 MG/2 ML CARTRIDGE IVPUSH ×2 (03:40→20:08)
[2025-03-17] MEDS: Thiamine HCL 200 MG in 0.9 % Sodium Chloride 100 ML 204 MG IV ×2 (03:52→14:08)
[2025-03-17] MEDS: Nicotine 14 MG PATCH.TD24 TRANSDERMA (08:24)
[2025-03-17] MEDS: Lactated Ringers 1,000 ML 125 ML IVCONT (08:25)
[2025-03-17 09:26] LABS: Hematocrit 35.9 % (42.0-52.0); Hemoglobin 12.5 g/dl (14.0-18.0); Imm Gran Abs Auto 0.03 X10*3/uL (0.00-0.03); Imm Gran Pct Auto 0.3 % (0.0-0.4); Lymphocytes Absolute Auto 1.3 X10*3/uL (1.2-4.9); MANUAL DIFF FLAG SCAN; Mean Corpuscular HGB Conc 34.8 g/dl (31.0-36.0); Mean Corpuscular Hemoglobin 36.3 pg (27.0-33.0); Mean Corpuscular Volume 104.4 fL (80.0-98.0); NRBC Abs Auto 0.000 X10*3/uL (0.0-0.012); NRBC Pct Auto 0.0 /100WBC (0.0-0.2); Platelet Count 102 X10*3/uL (160-400); Red Blood Count 3.44 X10*6/uL (4.60-5.80); SCAN SMEAR FLAG 1; White Blood Count 9.6 X10*3/uL (4.8-10.8)
[2025-03-17 09:44] LABS: Albumin Level 4.0 g/dL (3.5-5.0); Alkaline Phosphatase 81 U/L (39-117); Anion Gap 13 (12-20); Aspartate Amino Transferase 93 U/L (5-37); Blood Urea Nitrogen 4 mg/dL (9-16); Calcium 8.3 mg/dL (8.4-10.2); Carbon Dioxide 28 mmol/L (22-29); Chloride 100 mmol/L (96-108); Creatinine Clr Calc Pharmacy 147.7; Estimated Glomerular Filt Rate > 60; Potassium 3.3 mmol/L (3.3-5.1); Sodium 138 mmol/L (135-145); Total Protein 6.9 g/dL (6.5-8.0)
[2025-03-17 09:55] LABS: Alanine Aminotransferase 54 U/L (0-40)
[2025-03-17] MEDS: Potassium Chloride ER 20 MEQ TAB.ER.PRT PO (14:09)
--- NOTE | 2025-03-17 14:36 | HO.PM.IMPN ---
Subjective Subjective Date of Service: 03/17/25 Interval History: More delirious today with confabulatory history. No tremulousness or diaphoresis. No hallucinations. Very pleasant and cooperative overall. Review of Systems Review of Systems: Yes all other systems are reviewed and are negative Physical Exam Exam: Exam: General: A&O x2, oriented to person and situation only - not to time or place, comfortable, no pain Cardiac: S1, S2 auscultated with no S3/4, no MRG. Well perfused. Respiratory: Normal breath sounds auscultated throughout all lung zones, without wheezing, rales. Normal rate. GI/ : No abdominal pain on palpation, no masses or distentions. MSK: Pain at the right shoulder, with reduced ROM Neurological: Normal neurological examination on overview, without obvious CN II-XII abnormalities. Skin: Excoriation around nose, some facial ecchymosis Vital Signs: Vital Signs: Last Vital Signs Temp 97.0 F 03/17/25 12:00 Pulse 96 03/17/25 12:00 Resp 17 03/17/25 12:00 BP 129/87 03/17/25 12:00 Pulse Ox 98 03/17/25 12:00 O2 Del Method Room Air 03/17/25 12:00 BMI result Body Mass Index 20.8 Objective Data Active Medications Aspirin (Aspirin 81 Mg Tab.Chew) 81 mg PO DAILY [facility] Last Admin: 03/17/25 08:26 Dose: 81 mg Documented By: SIMI Folic Acid (Folic Acid 1 Mg Tablet) 1 mg PO DAILY [facility] Last Admin: 03/17/25 08:26 Dose: 1 mg Documented By: SIMI Heparin Sodium (Porcine) (Heparin Sodium,Porcine 5,000 Unit/Ml Vial) 5,000 unit SUBCUT Q12H [facility] Last Admin: 03/17/25 14:09 Dose: 5,000 unit Documented By: SIMI Thiamine HCl 200 mg/ Sodium (Chloride) 102 mls @ 204 mls/hr IV Q12H [facility] Last Admin: 03/17/25 14:08 Dose: 204 mls/hr Documented By: SIMI Magnesium Oxide (Magnesium Oxide 400 Mg Tablet) 800 mg PO BIDPC [facility] Last Admin: 03/17/25 08:25 Dose: 800 mg Documented By: SIMI Nicotine (Nicotine 14 Mg Patch.Td24) 14 mg TRANSDERMA DAILY [facility] Last Admin: 03/17/25 08:24 Dose: 14 mg Documented By: SIMI Oxcarbazepine (Oxcarbazepine 150 Mg Tablet) 150 mg PO BID [facility] Last Admin: 03/17/25 08:25 Dose: 150 mg Documented By: SIMI Pharmacy Consult (Consult Rx Etoh Phenob Im/Po) 1 each MISCELLANE ONCE PRN; Protocol PRN Reason: Consult order Phenobarbital (Phenobarbital 30 Mg Tablet) 30 mg PO BID [facility]; Protocol Stop: 03/19/25 09:01 Phenobarbital (Phenobarbital 30 Mg Tablet) 30 mg PO DAILY [facility]; Protocol Stop: 03/21/25 09:01 Pravastatin Sodium (Pravastatin Sodium 80 Mg Tablet) 80 mg PO DAILY [facility] Last Admin: 03/17/25 08:26 Dose: 80 mg Documented By: SIMI Labs 03/17/25 09:12 03/17/25 09:12 Labs: Laboratory Results - last 24 hr 03/16/25 03/16/25 03/16/25 17:45 20:38 23:23 MCV MCH MCHC RDW Plt Count MPV Immature Gran % (Auto) Neut % (Auto) Lymph % (Auto) [place] % (Auto) Eos % (Auto) Baso % (Auto) Lymph # (Auto) [place] # (Auto) Eos # (Auto) Baso # (Auto) Abs Immat Gran (auto) Absolute Neuts (auto) Absolute Nucleated RBC Nucleated RBC % (auto) Smear Tech's Comments Anion Gap 15 14 Estim Creat Clear Calc 138.0 145.2 Estimated GFR > 60 > 60 POC Glucose 136 H Random Glucose 104 103 Calcium 7.8 L 7.9 L Magnesium 0.9 L* 1.3 L* Total Bilirubin AST ALT Alkaline Phosphatase Total Creatine Kinase Total Protein Albumin 03/17/25 09:12 MCV 104.4 H MCH 36.3 H MCHC 34.8 RDW 12.6 Plt Count 102 L MPV 11.1 Immature Gran % (Auto) 0.3 Neut % (Auto) 69.8 Lymph % (Auto) 13.2 L [place] % (Auto) 16.1 H Eos % (Auto) 0.3 Baso % (Auto) 0.3 Lymph # (Auto) 1.3 [place] # (Auto) 1.5 H Eos # (Auto) 0.0 Baso # (Auto) 0.0 Abs Immat Gran (auto) 0.03 Absolute Neuts (auto) 6.7 Absolute Nucleated RBC 0.000 Nucleated RBC % (auto) 0.0 Smear Tech's Comments VERIFIED Anion Gap 13 Estim Creat Clear Calc 147.7 Estimated GFR > 60 POC Glucose Random Glucose 141 H Calcium 8.3 L Magnesium Total Bilirubin 1.3 H AST 93 H ALT 54 H Alkaline Phosphatase 81 Total Creatine Kinase 726 H Total Protein 6.9 Albumin 4.0 Assessment and Plan (1) Alcohol use disorder, severe, dependence: Status: Acute (2) Alcoholism: Status: Acute (3) Alcohol withdrawal: Status: Acute (4) Delirium tremens: Status: Acute (5) Hypomagnesemia: Status: Acute (6) Hypokalemia: Status: Acute (7) Metabolic acidosis, increased anion gap: Status: Acute (8) Acidosis, lactic: Status: Acute (9) Fracture, humerus, proximal: Status: Acute (10) Multiple cerebral infarctions: Status: Acute (11) Central pontine myelinolysis: Status: Acute (12) Multifactorial dementia: Status: Acute (13) Seizure disorder: Status: Acute (14) Alcohol withdrawal seizure: Status: Acute (15) Alcohol withdrawal seizure with delirium: Status: Acute (16) Acute respiratory failure with hypoxia: Status: Acute (17) Wernicke encephalopathy: Status: Acute Plan 55-year-old male with history of alcohol withdrawal, history of DTs and alcohol withdrawal seizures who was brought to the emergency department after fall and seizure admitted with severe metabolic acidosis 2/2 postictal state and starvation/alcoholic ketosis, found to have subacute brainstem infarct, c/b ETOH withdrawal with delirium tremens Alcohol use disorder Acute alcohol withdrawal Alcohol withdrawal seizure Meghan tremens No overt signs of withdrawal clinically. Confabulatory history, with progressive AMS in the setting of ETOH withdrawal. PLAN - Trend CIWA - Continue phenobarbital protocol - p.r.n. benzodiazepines/ barbiturates - Thiamine, folic acid supplementation - Addiction medicine input is greatly appreciated Seizure Disorder Multifactorial etiology due to etoh withdrawal, prior CVAs, central pontine myelinolysis Patient was started on Keppra by PCP Patient has not been compliant with medications Evaluation by Neurology regarding seizure disorder, with recommendations to place patient on oxcarbazepine PLAN - continue oxcarbazepine 150 mg b.i.d. p.o. - discontinue Keppra - neurology recommendations appreciated - continue seizure precautions - aspiration precautions - p.r.n. diazepam for seizures Acute high anion gap metabolic acidosis - RESOLVED - Lactic acidosis: Likely due to acute lactic acidosis from seizure. Not due to sepsis - Ketosis; elevated beta hydroxybutyrate possibly 2/2 ETOH versus malnourishment PLAN - IVF - encourage hydration and p.o. intake Chronic lacunar pontine stroke Global cerebral atrophy Small-vessel occlusive disease Subacute CVA incidentally identified on CT brain 03/15/2025 on admission. MRI brain performed, revealing NO evidence of acute or hemorrhagic CVA. Neurology following, recommendations greatly appreciated PLAN - neurology recommendations appreciated - continue aspirin 81 mg a day p.o. - continue pravastatin 80 mg OD p.o. - speech and swallow evaluation - PT/OT evaluation Mechanical fall Fractured nasal bridge Multifactorial fall; likely 2/2 mechanical element, as well as intoxication. Possibly 2/2 central pontine myelinolysis with imbalance/ element of Wernicke or Korsakoff encephalopathy PLAN - fall precautions - seizure precautions - PT evaluation and OT evaluation - high-dose thiamine infusion IV Traumatic rhabdomyolysis Suffered with fall, with increasing CK from 400-800. No evidence of acute kidney injury or other organ dysfunction PLAN - trend BMP - LR 100 cc/hour - trend CPK Hypomagnesemia Hypokalemia 2/2 malnourishment in the setting of severe ETOH use PLAN - K> 4 - mg > 2 - magnesium 800 b.i.d. p.o. - 2 g IV - Repeat levels urgently Hypocalcemia Likely exacerbated by low magnesium levels Replace magnesium and repeat in a.m. Alcoholic hepatitis Hyperbilirubinemia In the setting of ETOH abuse. Maddrey score within normal limits-no indication for at this time. No evidence of cirrhosis ascites or hepatic encephalopathy. No evidence of acute decompensated but by alcoholic hepatitis. Trend LFTs Avoid hepatotoxins Tobacco dependence Smoking cessation advised NRT QUALITY METRICS - VTE: Heparin 5000 t.i.d. SQ - CODE STATUS: Full code - DIET: Regular Quality Stroke Does the patient have a stroke diagnosis?: No VTE Prior VTE?: No VTE Risk Level:: Medical - moderate - high VTE Device Contraindication: N/A - Device Ordered VTE Drug Contraindication: N/A - Med Ordered
[2025-03-17] MEDS: OLANZapine 10 MG VIAL 5 MG IM (20:07)
[2025-03-18] MEDS: diazePAM 10 MG/2 ML CARTRIDGE IVPUSH ×2 (00:03→05:51)
[2025-03-18] MEDS: OLANZapine 10 MG VIAL 7.5 MG IM (03:46)
[2025-03-18] MEDS: Thiamine HCL 200 MG in 0.9 % Sodium Chloride 100 ML 204 MG IV ×2 (03:48→17:08)
[2025-03-18 04:00] VITALS: BP 148/86; PULSE 112; RESP 17; TEMP 36.4; O2SAT 100
[2025-03-18 07:59] VITALS: BP 166/95; PULSE 114; RESP 18; TEMP 36.3; O2SAT 98
[2025-03-18 10:14] LABS: Imm Gran Abs Auto 0.04 X10*3/uL (0.00-0.03); Imm Gran Pct Auto 0.4 % (0.0-0.4); MANUAL DIFF FLAG SCAN; Mean Corpuscular Volume 104.5 fL (80.0-98.0); NRBC Abs Auto 0.000 X10*3/uL (0.0-0.012); NRBC Pct Auto 0.0 /100WBC (0.0-0.2); PLT CLUMP 1; SCAN SMEAR FLAG 1
[2025-03-18 10:16] LABS: Hematocrit 36.9 % (42.0-52.0); Hemoglobin 12.8 g/dl (14.0-18.0); Lymphocytes Absolute Auto 1.6 X10*3/uL (1.2-4.9); Mean Corpuscular HGB Conc 34.7 g/dl (31.0-36.0); Mean Corpuscular Hemoglobin 36.3 pg (27.0-33.0); Red Blood Count 3.53 X10*6/uL (4.60-5.80)
[2025-03-18 10:22] LABS: Platelet Count 126 X10*3/uL (160-400); White Blood Count 8.9 X10*3/uL (4.8-10.8)
[2025-03-18 10:31] LABS: Alanine Aminotransferase 45 U/L (0-40); Albumin Level 4.3 g/dL (3.5-5.0); Alkaline Phosphatase 87 U/L (39-117); Anion Gap 15 (12-20); Aspartate Amino Transferase 71 U/L (5-37); Blood Urea Nitrogen 5 mg/dL (9-16); Calcium 9.1 mg/dL (8.4-10.2); Carbon Dioxide 29 mmol/L (22-29); Chloride 99 mmol/L (96-108); Creatinine Clr Calc Pharmacy 140.3; Estimated Glomerular Filt Rate > 60; Potassium 3.1 mmol/L (3.3-5.1); Sodium 140 mmol/L (135-145); Total Protein 7.5 g/dL (6.5-8.0)
[2025-03-18 11:55] VITALS: BP 162/79; PULSE 88; RESP 18; TEMP 36.8; O2SAT 98
[2025-03-18] MEDS: Nicotine 14 MG PATCH.TD24 TRANSDERMA (12:24)
--- NOTE | 2025-03-18 14:08 | P.PNIM_ITS ---
Subjective Subjective Date of Service: 03/18/25 Interval History: Overnight events reviewed. Significant agitation and symptoms of withdrawal. Currently asleep and comfortable in bed. No new complaints or issues reported by patient. Remains altered. Review of Systems Review of Systems: Yes Unobtainable due to mental status Physical Exam 2 Exam: Exam: General: A&O x2, oriented to person and situation only - not to time or place, comfortable, no pain Cardiac: S1, S2 auscultated with no S3/4, no MRG. Well perfused. Respiratory: Normal breath sounds auscultated throughout all lung zones, without wheezing, rales. Normal rate. GI/ : No abdominal pain on palpation, no masses or distentions. MSK: Pain at the right shoulder, with reduced ROM Neurological: Normal neurological examination on overview, without obvious CN II-XII abnormalities. Skin: Excoriation around nose, some facial ecchymosis Vital Signs: Vital Signs: Last Vital Signs Temp 98.2 F 03/18/25 11:55 Pulse 88 03/18/25 11:55 Resp 18 03/18/25 11:55 BP 162/79 H 03/18/25 11:55 Pulse Ox 98 03/18/25 11:55 O2 Del Method Room Air 03/18/25 11:55 BMI result Body Mass Index 20.8 Objective Data Active Medications Aspirin (Aspirin 81 Mg Tab.Chew) 81 mg PO DAILY [facility] Last Admin: 03/18/25 12:25 Dose: 81 mg Documented By: SIMI Folic Acid (Folic Acid 1 Mg Tablet) 1 mg PO DAILY [facility] Last Admin: 03/18/25 12:25 Dose: 1 mg Documented By: SIMI Gabapentin (Gabapentin 600 Mg Tablet) 600 mg PO TID [facility] Last Admin: 03/18/25 13:52 Dose: Not Given Documented By: SIMI Non-Admin Reason: morning dose given late d/t paient lethargic Heparin Sodium (Porcine) (Heparin Sodium,Porcine 5,000 Unit/Ml Vial) 5,000 unit SUBCUT Q12H [facility] Last Admin: 03/18/25 12:26 Dose: 5,000 unit Documented By: SIMI Thiamine HCl 200 mg/ Sodium (Chloride) 102 mls @ 204 mls/hr IV Q12H [facility] Last Infusion: 03/18/25 04:21 Dose: Infused Documented By: VALENTINO [facility] Last Admin: 03/18/25 12:25 Dose: 800 mg Documented By: SIMI Nicotine (Nicotine 14 Mg Patch.Td24) 14 mg TRANSDERMA DAILY [facility] Last Admin: 03/18/25 12:24 Dose: 14 mg Documented By: SIMI Oxcarbazepine (Oxcarbazepine 150 Mg Tablet) 150 mg PO BID [facility] Last Admin: 03/18/25 12:25 Dose: 150 mg Documented By: SIMI Pharmacy Consult (Consult Rx Etoh Phenob Im/Po) 1 each MISCELLANE ONCE PRN; Protocol PRN Reason: Consult order Phenobarbital (Phenobarbital 30 Mg Tablet) 30 mg PO BID [facility]; Protocol Stop: 03/19/25 09:01 Last Admin: 03/18/25 12:25 Dose: 30 mg Documented By: SIMI Phenobarbital (Phenobarbital 30 Mg Tablet) 30 mg PO DAILY [facility]; Protocol Stop: 03/21/25 09:01 Pravastatin Sodium (Pravastatin Sodium 80 Mg Tablet) 80 mg PO DAILY [facility] Last Admin: 03/18/25 12:24 Dose: 80 mg Documented By: SIMI Labs 03/18/25 09:08 03/18/25 09:08 Labs: Laboratory Results - last 24 hr 03/18/25 09:08 MCV 104.5 H MCH 36.3 H MCHC 34.7 RDW 12.7 Plt Count 126 L MPV 10.8 Immature Gran % (Auto) 0.4 Neut % (Auto) 62.2 Lymph % (Auto) 17.8 L [place] % (Auto) 18.8 H Eos % (Auto) 0.4 Baso % (Auto) 0.4 Lymph # (Auto) 1.6 [place] # (Auto) 1.7 H Eos # (Auto) 0.0 Baso # (Auto) 0.0 Abs Immat Gran (auto) 0.04 H Absolute Neuts (auto) 5.5 Absolute Nucleated RBC 0.000 Nucleated RBC % (auto) 0.0 Smear Tech's Comments VERIFIED Anion Gap 15 Estim Creat Clear Calc 140.3 Estimated GFR > 60 Random Glucose 83 Calcium 9.1 D Total Bilirubin 1.1 H AST 71 H ALT 45 H Alkaline Phosphatase 87 Total Protein 7.5 Albumin 4.3 Assessment and Plan (1) Delirium tremens: Status: Acute (2) Alcohol withdrawal: Status: Acute (3) Alcoholism: Status: Acute (4) Alcohol use disorder, severe, dependence: Status: Acute (5) Multiple cerebral infarctions: Status: Acute (6) Central pontine myelinolysis: Status: Acute (7) Multifactorial dementia: Status: Acute (8) Seizure disorder: Status: Acute (9) Alcohol withdrawal seizure: Status: Acute (10) Alcohol withdrawal seizure with delirium: Status: Acute (11) Wernicke encephalopathy: Status: Acute (12) Acute respiratory failure with hypoxia: Status: Acute Plan 55-year-old male with history of alcohol withdrawal, history of DTs and alcohol withdrawal seizures who was brought to the emergency department after fall and seizure admitted with severe metabolic acidosis 2/2 postictal state and starvation/alcoholic ketosis, found to have subacute brainstem infarct, c/b ETOH withdrawal with delirium tremens Alcohol use disorder Acute alcohol withdrawal Alcohol withdrawal seizure Delirium tremens No overt signs of withdrawal clinically. Confabulatory history, with progressive AMS in the setting of ETOH withdrawal. PLAN - Trend CIWA - Continue phenobarbital protocol - p.r.n. benzodiazepines/ barbiturates - Thiamine, folic acid supplementation - Addiction medicine input is greatly appreciated Seizure Disorder Multifactorial etiology due to etoh withdrawal, prior CVAs, central pontine myelinolysis Patient was started on Keppra by PCP Patient has not been compliant with medications Evaluation by Neurology regarding seizure disorder, with recommendations to place patient on oxcarbazepine PLAN - continue oxcarbazepine 150 mg b.i.d. p.o. - discontinue Keppra - neurology recommendations appreciated - continue seizure precautions - aspiration precautions - p.r.n. diazepam for seizures Acute high anion gap metabolic acidosis - RESOLVED - Lactic acidosis: Likely due to acute lactic acidosis from seizure. Not due to sepsis - Ketosis; elevated beta hydroxybutyrate possibly 2/2 ETOH versus malnourishment PLAN - IVF - encourage hydration and p.o. intake Chronic lacunar pontine stroke Global cerebral atrophy Small-vessel occlusive disease Subacute CVA incidentally identified on CT brain 03/15/2025 on admission. MRI brain performed, revealing NO evidence of acute or hemorrhagic CVA. Neurology following, recommendations greatly appreciated PLAN - neurology recommendations appreciated - continue aspirin 81 mg a day p.o. - continue pravastatin 80 mg OD p.o. - speech and swallow evaluation - PT/OT evaluation Mechanical fall Fractured nasal bridge Multifactorial fall; likely 2/2 mechanical element, as well as intoxication. Possibly 2/2 central pontine myelinolysis with imbalance/ element of Wernicke or Korsakoff encephalopathy PLAN - fall precautions - seizure precautions - PT evaluation and OT evaluation - high-dose thiamine infusion IV Traumatic rhabdomyolysis Suffered with fall, with increasing CK from 400-800. No evidence of acute kidney injury or other organ dysfunction PLAN - trend BMP - LR 100 cc/hour - trend CPK Hypomagnesemia Hypokalemia 2/2 malnourishment in the setting of severe ETOH use PLAN - K> 4 - mg > 2 - magnesium 800 b.i.d. p.o. - 2 g IV - Repeat levels urgently Hypocalcemia Likely exacerbated by low magnesium levels Replace magnesium and repeat in a.m. Alcoholic hepatitis Hyperbilirubinemia In the setting of ETOH abuse. Maddrey score within normal limits-no indication for at this time. No evidence of cirrhosis ascites or hepatic encephalopathy. No evidence of acute decompensated but by alcoholic hepatitis. Trend LFTs Avoid hepatotoxins Tobacco dependence Smoking cessation advised NRT QU[employer] - VTE: Heparin 5000 t.i.d. SQ - CODE STATUS: Full code - DIET: Regular Total time managing care of this patient today: 45 minutes. Quality Stroke Does the patient have a stroke diagnosis?: No VTE Prior VTE?: No VTE Risk Level:: Medical - moderate - high VTE Device Contraindication: N/A - Device Ordered VTE Drug Contraindication: N/A - Med Ordered
[2025-03-18 15:49] VITALS: BP 119/70; PULSE 118; RESP 17; TEMP 36.6; O2SAT 96
[2025-03-18 19:23] VITALS: BP 150/83; PULSE 120; RESP 18; TEMP 36.5; O2SAT 96
[2025-03-18 23:44] VITALS: BP 102/63; PULSE 111; RESP 18; TEMP 36.6; O2SAT 95
[2025-03-19 02:57] VITALS: BP 98/59; PULSE 103; RESP 18; TEMP 36.6; O2SAT 95
[2025-03-19] MEDS: Thiamine HCL 200 MG in 0.9 % Sodium Chloride 100 ML 204 MG IV (04:35)
[2025-03-19 06:47] LABS: Hematocrit 35.2 % (42.0-52.0); Hemoglobin 12.1 g/dl (14.0-18.0); Imm Gran Abs Auto 0.06 X10*3/uL (0.00-0.03); Imm Gran Pct Auto 0.6 % (0.0-0.4); Lymphocytes Absolute Auto 1.4 X10*3/uL (1.2-4.9); MANUAL DIFF FLAG SCAN; Mean Corpuscular HGB Conc 34.4 g/dl (31.0-36.0); Mean Corpuscular Hemoglobin 36.7 pg (27.0-33.0); Mean Corpuscular Volume 106.7 fL (80.0-98.0); NRBC Abs Auto 0.000 X10*3/uL (0.0-0.012); NRBC Pct Auto 0.0 /100WBC (0.0-0.2); Platelet Count 160 X10*3/uL (160-400); Red Blood Count 3.30 X10*6/uL (4.60-5.80); SCAN SMEAR FLAG 1; White Blood Count 10.1 X10*3/uL (4.8-10.8)
[2025-03-19 07:13] LABS: Alanine Aminotransferase 36 U/L (0-40); Albumin Level 4.0 g/dL (3.5-5.0); Alkaline Phosphatase 80 U/L (39-117); Anion Gap 14 (12-20); Aspartate Amino Transferase 43 U/L (5-37); Blood Urea Nitrogen 16 mg/dL (9-16); Calcium 9.0 mg/dL (8.4-10.2); Carbon Dioxide 29 mmol/L (22-29); Chloride 101 mmol/L (96-108); Creatinine Clr Calc Pharmacy 112.2; Estimated Glomerular Filt Rate > 60; Potassium 2.8 mmol/L (3.3-5.1); Sodium 141 mmol/L (135-145); Total Protein 7.2 g/dL (6.5-8.0)
[2025-03-19 08:00] VITALS: BP 143/83; PULSE 98; RESP 18; TEMP 36.6; O2SAT 98
[2025-03-19] MEDS: Potassium Chloride/H20 10 MEQ/100 ML PIGGYBACK 100 MEQ IV ×4 (08:09→11:51)
[2025-03-19] MEDS: Nicotine 14 MG PATCH.TD24 TRANSDERMA (08:22)
[2025-03-19] MEDS: Potassium Chloride ER 20 MEQ TAB.ER.PRT 40 MEQ PO ×2 (08:24→20:51)
--- NOTE | 2025-03-19 09:03 | P.PNIM_ITS ---
Subjective Subjective Date of Service: 03/20/25 Interval History: hypoK repleted , however PT per their rules cannot participate in PT work and hence the DC fell throught Will check tomorrow and request PT to evaluate him for disposition. Review of Systems Review of Systems: Yes all other systems are reviewed and are negative, Unobtainable due to mental condition and Unobtainable due to mental status Physical Exam 2 Exam: Exam: General: A&O x2, oriented to person and situation only - not to time or place, comfortable, no pain Cardiac: No murmurs noted Respiratory: Normal breath sounds auscultated throughout all lung zones, without wheezing, rales. Normal rate. GI/ : No abdominal pain on palpation, no masses or distentions. MSK: Pain at the right shoulder, with reduced ROM Skin: Excoriation around nose, some facial ecchymosis Vital Signs: Vital Signs: Last Vital Signs Temp 97.9 F 03/19/25 02:57 Pulse 103 H 03/19/25 02:57 Resp 18 03/19/25 02:57 BP 98/59 L 03/19/25 02:57 Pulse Ox 95 03/19/25 02:57 O2 Del Method Room Air 03/19/25 02:57 BMI result Body Mass Index 20.8 Objective Data Active Medications Aspirin (Aspirin 81 Mg Tab.Chew) 81 mg PO DAILY [facility] Last Admin: 03/19/25 08:25 Dose: 81 mg Documented By: BRIANA Folic Acid (Folic Acid 1 Mg Tablet) 1 mg PO DAILY [facility] Last Admin: 03/19/25 08:24 Dose: 1 mg Documented By: BRIANA Gabapentin (Gabapentin 600 Mg Tablet) 600 mg PO TID [facility] Last Admin: 03/19/25 08:24 Dose: 600 mg Documented By: BRIANA Heparin Sodium (Porcine) (Heparin Sodium,Porcine 5,000 Unit/Ml Vial) 5,000 unit SUBCUT Q12H [facility] Last Admin: 03/18/25 23:29 Dose: 5,000 unit Documented By: VALENTINO Thiamine HCl 200 mg/ Sodium (Chloride) 102 mls @ 204 mls/hr IV Q12H [facility] Last Infusion: 03/19/25 05:05 Dose: Infused Documented By: VALENTINO Potassium Chloride (Potassium Chloride/H20) 10 meq in 100 mls @ 100 mls/hr IV Q1H [facility] Stop: 03/19/25 11:14 Last Admin: 03/19/25 08:09 Dose: 100 mls/hr Documented By: BRIANA Magnesium Oxide (Magnesium Oxide 400 Mg Tablet) 800 mg PO BIDPC [facility] Last Admin: 03/19/25 08:23 Dose: 800 mg Documented By: BRIANA Nicotine (Nicotine 14 Mg Patch.Td24) 14 mg TRANSDERMA DAILY [facility] Last Admin: 03/19/25 08:22 Dose: 14 mg Documented By: BRIANA Oxcarbazepine (Oxcarbazepine 150 Mg Tablet) 150 mg PO BID [facility] Last Admin: 03/19/25 08:24 Dose: 150 mg Documented By: BRIANA Pharmacy Consult (Consult Rx Etoh Phenob Im/Po) 1 each MISCELLANE ONCE PRN; Protocol PRN Reason: Consult order Phenobarbital (Phenobarbital 30 Mg Tablet) 30 mg PO DAILY [facility]; Protocol Stop: 03/21/25 09:01 Potassium Chloride (Potassium Chloride Er 20 Meq Tab.Er.Prt) 40 meq PO BID [facility] Stop: 03/20/25 21:01 Last Admin: 03/19/25 08:24 Dose: 40 meq Documented By: BRIANA Pravastatin Sodium (Pravastatin Sodium 80 Mg Tablet) 80 mg PO DAILY [facility] Last Admin: 03/19/25 08:23 Dose: 80 mg Documented By: BRIANA Labs 03/19/25 06:04 03/19/25 06:04 Labs: Laboratory Results - last 24 hr 03/18/25 03/19/25 09:08 06:04 MCV 104.5 H 106.7 H MCH 36.3 H 36.7 H MCHC 34.7 34.4 RDW 12.7 12.8 Plt Count 126 L 160 D MPV 10.8 10.8 Immature Gran % (Auto) 0.4 0.6 H Neut % (Auto) 62.2 64.5 Lymph % (Auto) 17.[address] [place] % (Auto) 18.8 H 20.1 H Eos % (Auto) 0.4 0.9 Baso % (Auto) 0.4 0.3 Lymph # (Auto) 1.[address] [place] # (Auto) 1.7 H 2.0 H Eos # (Auto) 0.0 0.1 Baso # (Auto) 0.0 0.0 Abs Immat Gran (auto) 0.04 H 0.06 H Absolute Neuts (auto) 5.5 6.5 Absolute Nucleated RBC 0.000 0.000 Nucleated RBC % (auto) 0.0 0.0 Smear Tech's Comments VERIFIED VERIFIED Anion Gap 15 14 Estim Creat Clear Calc 140.3 112.2 Estimated GFR > 60 > 60 Random Glucose 83 105 Calcium 9.1 D 9.0 Total Bilirubin 1.1 H 0.7 AST 71 H 43 H ALT 45 H 36 Alkaline Phosphatase 87 80 Total Protein 7.5 7.2 Albumin 4.3 4.0 Assessment and Plan (1) Delirium tremens: Status: Acute (2) Alcohol withdrawal: Status: Acute (3) Alcoholism: Status: Acute (4) Alcohol use disorder, severe, dependence: Status: Acute (5) Multiple cerebral infarctions: Status: Acute (6) Central pontine myelinolysis: Status: Acute (7) Multifactorial dementia: Status: Acute (8) Seizure disorder: Status: Acute (9) Alcohol withdrawal seizure: Status: Acute (10) Alcohol withdrawal seizure with delirium: Status: Acute (11) Wernicke encephalopathy: Status: Acute (12) Acute respiratory failure with hypoxia: Status: Acute Plan 55-year-old male with history of alcohol withdrawal, history of DTs and alcohol withdrawal seizures who was brought to the emergency department after fall and seizure admitted with severe metabolic acidosis 2/2 postictal state and starvation/alcoholic ketosis, found to have subacute brainstem infarct, c/b ETOH withdrawal with delirium tremens. Pt is ready for DC pending PT eval Acute alcohol withdrawal Alcohol withdrawal seizure Delirium tremens No overt signs of withdrawal clinically. Confabulatory history, with progressive AMS in the setting of ETOH withdrawal. PLAN - Trend CIWA - Continue phenobarbital protocol - p.r.n. benzodiazepines/ barbiturates - Thiamine, folic acid supplementation - Addiction medicine input is greatly appreciated Seizure Disorder Multifactorial etiology due to etoh withdrawal, prior CVAs, central pontine myelinolysis Patient was started on Keppra by PCP Patient has not been compliant with medications Evaluation by Neurology regarding seizure disorder, with recommendations to place patient on oxcarbazepine PLAN - continue oxcarbazepine 150 mg b.i.d. p.o. - discontinue Keppra - neurology recommendations appreciated - continue seizure precautions - aspiration precautions - p.r.n. diazepam for seizures Acute high anion gap metabolic acidosis - RESOLVED - Lactic acidosis: Likely due to acute lactic acidosis from seizure. Not due to sepsis - Ketosis; elevated beta hydroxybutyrate possibly 2/2 ETOH versus malnourishment PLAN - IVF - encourage hydration and p.o. intake Chronic lacunar pontine stroke Global cerebral atrophy Small-vessel occlusive disease Subacute CVA incidentally identified on CT brain 03/15/2025 on admission. MRI brain performed, revealing NO evidence of acute or hemorrhagic CVA. Neurology following, recommendations greatly appreciated PLAN - neurology recommendations appreciated - continue aspirin 81 mg a day p.o. - continue pravastatin 80 mg OD p.o. - speech and swallow evaluation - PT/OT evaluation Mechanical fall Fractured nasal bridge Multifactorial fall; likely 2/2 mechanical element, as well as intoxication. Possibly 2/2 central pontine myelinolysis with imbalance/ element of Wernicke or Korsakoff encephalopathy PLAN - fall precautions - seizure precautions - PT evaluation and OT evaluation - high-dose thiamine infusion IV Traumatic rhabdomyolysis Suffered with fall, with increasing CK from 400-800. No evidence of acute kidney injury or other organ dysfunction PLAN - trend BMP - LR 100 cc/hour - trend CPK Hypomagnesemia Hypokalemia 2/2 malnourishment in the setting of severe ETOH use PLAN - K> 4 - mg > 2 - magnesium 800 b.i.d. p.o. - 2 g IV - Repeat levels urgently Hypocalcemia Likely exacerbated by low magnesium levels Replace magnesium and repeat in a.m. Alcoholic hepatitis Hyperbilirubinemia In the setting of ETOH abuse. Maddrey score within normal limits-no indication for at this time. No evidence of cirrhosis ascites or hepatic encephalopathy. No evidence of acute decompensated but by alcoholic hepatitis. Trend LFTs Avoid hepatotoxins Tobacco dependence Smoking cessation advised NRT - VTE: Heparin 5000 t.i.d. SQ - CODE STATUS: Full code - DIET: Regular This note is constructed using voice recognition software. While every effort has been made to ensure accuracy, technical planner errors may have been included. Disposition: He is HDS, completed Phenobarb protocol, but PT wasnt able to work with him given hypoK, hence DC was not able to be done. We need clearance from PT prior to DC Total time managing care of this patient today: 45 minutes. Quality Stroke Does the patient have a stroke diagnosis?: No VTE Prior VTE?: No VTE Risk Level:: Medical - moderate - high VTE Device Contraindication: N/A - Device Ordered VTE Drug Contraindication: N/A - Med Ordered
--- NOTE | 2025-03-19 12:10 | MHC.CM.PN ---
Patient is not yet medically cleared for dc (last day of Phenobarbital); Patient may benefit from a PT Eval to assist with disposition. CM will follow.
[2025-03-19 12:24] VITALS: BP 118/69; PULSE 108; RESP 20; TEMP 36.8; O2SAT 99
[2025-03-19 16:00] VITALS: BP 122/64; PULSE 98; RESP 18; TEMP 36.6; O2SAT 97
[2025-03-19 19:10] VITALS: BP 139/85; PULSE 102; RESP 16; TEMP 37.7; O2SAT 99
[2025-03-19 23:13] VITALS: BP 111/60; PULSE 93; RESP 16; TEMP 37.6; O2SAT 95
[2025-03-20] MEDS: Thiamine HCL 200 MG in 0.9 % Sodium Chloride 100 ML 204 MG IV ×2 (03:00→15:05)
[2025-03-20 03:20] VITALS: BP 108/63; PULSE 86; RESP 16; TEMP 36.6; O2SAT 96
[2025-03-20 07:16] LABS: Hematocrit 30.8 % (42.0-52.0); Hemoglobin 10.5 g/dl (14.0-18.0); Imm Gran Abs Auto 0.05 X10*3/uL (0.00-0.03); Imm Gran Pct Auto 0.6 % (0.0-0.4); Lymphocytes Absolute Auto 1.9 X10*3/uL (1.2-4.9); MANUAL DIFF FLAG SCAN; Mean Corpuscular HGB Conc 34.1 g/dl (31.0-36.0); Mean Corpuscular Hemoglobin 36.5 pg (27.0-33.0); Mean Corpuscular Volume 106.9 fL (80.0-98.0); NRBC Abs Auto 0.000 X10*3/uL (0.0-0.012); NRBC Pct Auto 0.0 /100WBC (0.0-0.2); Platelet Count 180 X10*3/uL (160-400); Red Blood Count 2.88 X10*6/uL (4.60-5.80); SCAN SMEAR FLAG 1; White Blood Count 8.0 X10*3/uL (4.8-10.8)
[2025-03-20 07:37] LABS: Alanine Aminotransferase 27 U/L (0-40); Albumin Level 3.5 g/dL (3.5-5.0); Alkaline Phosphatase 67 U/L (39-117); Anion Gap 12 (12-20); Aspartate Amino Transferase 32 U/L (5-37); Blood Urea Nitrogen 12 mg/dL (9-16); Calcium 8.7 mg/dL (8.4-10.2); Carbon Dioxide 28 mmol/L (22-29); Chloride 107 mmol/L (96-108); Creatinine Clr Calc Pharmacy 123.8; Estimated Glomerular Filt Rate > 60; Potassium 3.5 mmol/L (3.3-5.1); Sodium 143 mmol/L (135-145); Total Protein 6.5 g/dL (6.5-8.0)
[2025-03-20 07:48] VITALS: BP 131/77; PULSE 85; RESP 20; TEMP 36.7; O2SAT 98
[2025-03-20] MEDS: Potassium Chloride ER 20 MEQ TAB.ER.PRT 40 MEQ PO ×2 (08:12→19:48)
[2025-03-20] MEDS: Nicotine 14 MG PATCH.TD24 TRANSDERMA (08:13)
--- NOTE | 2025-03-20 11:55 | P.DS_ITS ---
DS: Providers Provider Date of Service: 03/20/25 Date of admission: 03/15/25 10:57 Date of discharge: 03/20/25 Primary care physician: [facility] Consults: 03/15/25 10:23 Addiction Medicine Provider Routine Consulting Provider: Addiction Covering Reason for consultation: etoh withdrawal with seizure Has provider been notified: No 03/15/25 10:51 Consult to Neurology Routine Consulting Provider: [facility] Reason for consultation: etoh abuse; seizures; ?subacte stroke; ?need for antiepileptics Has provider been notified: No 03/15/25 21:35 Addiction Medicine Provider Routine Consulting Provider: Addiction Covering Reason for consultation: excessive drinking 03/15/25 21:37 Consult to Wound Care Routine Consulting Provider: [facility] [place] Wound Care Management Reason for consultation: abrasion on face DS: Diagnosis Discharge Diagnosis (1) Delirium tremens: Status: Acute (2) Alcohol withdrawal: Status: Acute (3) Alcoholism: Status: Acute (4) Alcohol use disorder, severe, dependence: Status: Acute (5) Multiple cerebral infarctions: Status: Acute (6) Central pontine myelinolysis: Status: Acute (7) Multifactorial dementia: Status: Acute (8) Seizure disorder: Status: Acute (9) Alcohol withdrawal seizure: Status: Acute (10) Alcohol withdrawal seizure with delirium: Status: Acute (11) Wernicke encephalopathy: Status: Acute (12) Acute respiratory failure with hypoxia: Status: Acute DS: Summary Hospital Course Hospital Course: 55-year-old male with history of alcohol withdrawal, history of DTs and alcohol withdrawal seizures who was brought to the emergency department after fall and seizure admitted with severe metabolic acidosis 2/2 postictal state and s tarvation/alcoholic ketosis, found to have subacute brainstem infarct, c/b ETOH withdrawal with delirium tremens. Acute alcohol withdrawal- resolved Alcohol withdrawal seizure-resolved Delirium tremens -resolved Presented with history of severe alcohol use, prior DTs and withdrawal seizures. Developed acute withdrawal with seizure and DTs during admission. Managed with p henobarbital protocol, PRN benzodiazepines/barbiturates, and CIWA monitoring. Confabulatory history, with progressive AMS in the setting of ETOH withdrawal. No further overt withdrawal symptoms at discharge. Thiamine and folic acid supplementation provided. Addiction medicine consulted. Discharge Plan:?Continue thiamine and folic acid OP. Outpatient addiction medicine follow-up. Strict alcohol abstinence advised. Seizure Disorder Multifactorial etiology due to etoh withdrawal, prior CVAs, central pontine myelinolysis Patient was started on Keppra by PCP which was discontinued during this admission. Patient has not been compliant with medications Evaluation by Neurology regarding seizure disorder, with recommendations to place patient on oxcarbazepine which she will continue until he is seen by Neurology. Patient needs to follow up with outpatient Neurology. Patient advised about seizure precautions aspiration precautions. Acute high anion gap metabolic acidosis - resolved with IVF Lactic acidosis: Likely due to acute lactic acidosis from seizure. Not due to sepsis. Ketosis; elevated beta hydroxybutyrate possibly 2/2 ETOH versus malnourishment Chronic lacunar pontine stroke Global cerebral atrophy Small-vessel occlusive disease Subacute CVA incidentally identified on CT brain 03/15/2025 on admission. MRI brain performed, revealing NO evidence of acute or hemorrhagic CVA. Neurology following, recommendations greatly appreciated PLAN - neurology recommendations appreciated - continue aspirin 81 mg a day p.o. - continue pravastatin 80 mg OD p.o. - speech and swallow evaluation - PT/OT evaluation Mechanical fall Fractured nasal bridge Multifactorial fall; likely 2/2 mechanical element, as well as intoxication. Possibly 2/2 central pontine myelinolysis with imbalance/ element of Wernicke or Korsakoff encephalopathy PLAN - fall precautions - seizure precautions - PT evaluation and OT evaluation - high-dose thiamine infusion IV Traumatic rhabdomyolysis Suffered with fall, with increasing CK from 400-800. No evidence of acute kidney injury or other organ dysfunction PLAN - trend BMP - LR 100 cc/hour - trend CPK Hypomagnesemia Hypokalemia 2/2 malnourishment in the setting of severe ETOH use PLAN - K> 4 - mg > 2 - magnesium 800 b.i.d. p.o. - 2 g IV - Repeat levels urgently Hypocalcemia Likely exacerbated by low magnesium levels Replace magnesium and repeat in a.m. Alcoholic hepatitis Hyperbilirubinemia In the setting of ETOH abuse. Maddrey score within normal limits-no indication for at this time. No evidence of cirrhosis ascites or hepatic encephalopathy. No evidence of acute decompensated but by alcoholic hepatitis. Trend LFTs Avoid hepatotoxins Tobacco dependence Smoking cessation advised NRT - VTE: Heparin 5000 t.i.d. SQ - CODE STATUS: Full code - DIET: Regular This note is constructed using voice recognition software. While every effort has been made to ensure accuracy, control officer errors may have been included. Disposition: He is HDS, completed Phenobarb protocol, but PT wasnt able to work with him given hypoK, hence DC was not able to be done. We need clearance from PT prior to DC Total time managing care of this patient today: 45 minutes. Time spent discussing smoking cessation with patient: more than 10 minutes Status at Discharge Functional status at discharge: independent ambulation Overall status at discharge: patient is progressing back to baseline Time Attestation Discharge Coordination Time (in mins): 45 Quality: Safe Use of Opioids Does Pt have an Active Cancer Diagnosis on the Problem List?: No Quality: Stroke Does the patient have a stroke diagnosis?: Yes Reason for No Anti-thrombotic at DC: N/A - Med Ordered Reason for No Anticoagulant at DC: Not indicated Reason Not Initiating IV-Tpa: Not indicated Reason for No Anti-thrombotic by Day Two: Not indicated Reason for No Statin at DC: N/A - Med Ordered Physical Exam Exam: Exam: General: A&O x2, oriented to person and situation only - not to time or place, comfortable, no pain Cardiac: No murmurs noted Respiratory: Normal breath sounds auscultated throughout all lung zones, without wheezing, rales. Normal rate. GI/ : No abdominal pain on palpation, no masses or distentions. MSK: Pain at the right shoulder, with reduced ROM Skin: Excoriation around nose, some facial ecchymosis Vital Signs: Vital Signs: Last Vital Signs Temp 98.0 F 03/20/25 07:48 Pulse 85 03/20/25 07:48 Resp 20 03/20/25 07:48 BP 131/77 03/20/25 07:48 Pulse Ox 98 03/20/25 07:48 O2 Del Method Room Air 03/20/25 07:48 BMI result Body Mass Index 20.8 DS: Data Data Completed and Pending Completed studies during hospitalization [Text1]: Procedures Detoxification Services for Substance Abuse Treatment (08/06/24) Insertion of Infusion Device into Left Brachial Vein, Percutaneous Approach (08/06/24) Insertion of Infusion Device into Upper Vein, Percutaneous Approach (08/06/24) Introduction of Vasopressor into Peripheral Vein, Percutaneous Approach (08/06/24) Reposition Right Humeral Shaft, Open Approach (08/06/24) Transfusion of Nonautologous Red Blood Cells into Peripheral Vein, Percutaneous Approach (08/06/24) Labs on day of discharge: Laboratory Results - last 24 hr 03/20/25 06:20 WBC 8.0 RBC 2.88 L Hgb 10.5 L Hct 30.8 L MCV 106.9 H MCH 36.5 H MCHC 34.1 RDW 12.6 Plt Count 180 MPV 10.5 Immature Gran % (Auto) 0.6 H Neut % (Auto) 49.7 Lymph % (Auto) 24.3 [place] % (Auto) 22.7 H Eos % (Auto) 1.9 Baso % (Auto) 0.8 Lymph # (Auto) 1.9 [place] # (Auto) 1.8 H Eos # (Auto) 0.2 Baso # (Auto) 0.1 Abs Immat Gran (auto) 0.05 H Absolute Neuts (auto) 4.0 Absolute Nucleated RBC 0.000 Nucleated RBC % (auto) 0.0 Smear Tech's Comments VERIFIED Sodium 143 Potassium 3.5 D Chloride 107 Carbon Dioxide 28 Anion Gap 12 BUN 12 Creatinine 0.68 Estim Creat Clear Calc 123.8 Estimated GFR > 60 Random Glucose 91 Calcium 8.7 Total Bilirubin 0.6 AST 32 ALT 27 Alkaline Phosphatase 67 Total Protein 6.5 Albumin 3.5 Discharge Plan Discharge Anticipated Discharge Date/Time: 03/20/25 14:11 Patient Disposition: Xfer SNF Discharge Diagnosis: HAL 2/2 AUD Referrals: [place] [Primary Care Provider, Primary Care] - 1 Week Discharge Medications: New acetaminophen 325 mg Tablet 975 mg PO Q6H PRN (Reason: Pain, Mild (Pain Scale 1-3)) 30 Days Qty: 60 0RF pravastatin 80 mg Tablet 80 mg PO DAILY 30 Days Qty: 30 3RF aspirin 81 mg Tablet,Chewable 81 mg PO DAILY 30 Days Qty: 30 3RF gabapentin 600 mg Tablet 600 mg PO TID 30 Days Qty: 90 3RF oxcarbazepine 150 mg Tablet 150 mg PO BID 30 Days Qty: 60 3RF folic acid 1 mg Tablet 1 mg PO DAILY 30 Days Qty: 30 3RF thiamine mononitrate (vit B1) 100 mg Tablet 100 mg PO DAILY 30 Days Qty: 60 3RF Discharge Orders: Discharge Order (Routine); Ordered 03/20/25 Ordered By: Michelle Randolph Diet: Low salt diet Activity on Discharge: As tolerated Stand Alone Forms: Patient Portal Discharge page Print Language: Swazi Care Plan Goals: A please abstain from alcohol Patient advised to follow outpatient rehabs and seek care if needed Patient advised to follow with PCP Patient advised to adhere to aspirin and statin. Patient advised to follow seizure precautions and continue oxcarbazepine and o utpatient Neurology follow-up Patient needs to continue with PTOT For pain control for traumatic fall, we are treating him with non opioid pain meds like Tylenol lidocaine etc. patient agreeable Health Concerns: See above Plan of Treatment: See above Assessment: See above Patient Instructions: Alcohol Withdrawal (DC), Generalized Tonic Clonic Seizures (DC)
[2025-03-20 12:00] VITALS: BP 116/69; PULSE 100; RESP 20; TEMP 36.7; O2SAT 98
--- NOTE | 2025-03-20 12:09 | MHC.CM.PN ---
Addendum entered by Nilam Dominguez RN 03/20/25 15:35: DC CANCELLED PT WILL NEED [facility] MDS APPROVAL, MDS, DETERMINATION LETTER AND CLINICALS FAXED TO MDS SCREENING AT [facility]. Original Note: PT MEDICALLY CLEAR[facility] FOR [facility], CM CONTACTED PT'S BROTHER/HCP EPIFANIO AT NUMBER ON FILE TO UPDATE ON PLAN, EPIFANIO AGREEABLE, PT [facility] HE HAS BEEN THERE EARLIER THIS YEAR, [facility] FOR BLS TRANSPORT AT 4PM.
--- NOTE | 2025-03-20 14:57 | P.PNIM_ITS ---
Subjective Subjective Date of Service: 03/20/25 Physical Exam 2 Vital Signs: Vital Signs: Last Vital Signs Temp 98.0 F 03/20/25 12:00 Pulse 100 03/20/25 12:00 Resp 20 03/20/25 12:00 BP 116/69 03/20/25 12:00 Pulse Ox 98 03/20/25 12:00 O2 Del Method Room Air 03/20/25 12:00 BMI result Body Mass Index 20.8 Objective Data Active Medications Acetaminophen (Acetaminophen 325 Mg Tablet) 975 mg PO Q6H PRN PRN Reason: Pain, Mild (Pain Scale 1-3) Stop: 03/24/25 12:31 Last Admin: 03/19/25 20:51 Dose: 975 mg Documented By: RUI Aspirin (Aspirin 81 Mg Tab.Chew) 81 mg PO DAILY [facility] Last Admin: 03/20/25 08:13 Dose: 81 mg Documented By: FER Folic Acid (Folic Acid 1 Mg Tablet) 1 mg PO DAILY [facility] Last Admin: 03/20/25 08:13 Dose: 1 mg Documented By: FER Gabapentin (Gabapentin 600 Mg Tablet) 600 mg PO TID [facility] Last Admin: 03/20/25 08:13 Dose: 600 mg Documented By: FER Heparin Sodium (Porcine) (Heparin Sodium,Porcine 5,000 Unit/Ml Vial) 5,000 unit SUBCUT Q12H [facility] Last Admin: 03/20/25 12:17 Dose: 5,000 unit Documented By: FER Thiamine HCl 200 mg/ Sodium (Chloride) 102 mls @ 204 mls/hr IV Q12H [facility] Last Infusion: 03/20/25 03:51 Dose: Infused Documented By: RUI Magnesium Oxide (Magnesium Oxide 400 Mg Tablet) 800 mg PO BIDPC [facility] Last Admin: 03/20/25 08:13 Dose: 800 mg Documented By: FER Nicotine (Nicotine 14 Mg Patch.Td24) 14 mg TRANSDERMA DAILY [facility] Last Admin: 03/20/25 08:13 Dose: 14 mg Documented By: FER Oxcarbazepine (Oxcarbazepine 150 Mg Tablet) 150 mg PO BID [facility] Last Admin: 03/20/25 08:13 Dose: 150 mg Documented By: FER Pharmacy Consult (Consult Rx Etoh Phenob Im/Po) 1 each MISCELLANE ONCE PRN; Protocol PRN Reason: Consult order Phenobarbital (Phenobarbital 30 Mg Tablet) 30 mg PO DAILY [facility]; Protocol Stop: 03/21/25 09:01 Last Admin: 03/20/25 08:13 Dose: 30 mg Documented By: FER Potassium Chloride (Potassium Chloride Er 20 Meq Tab.Er.Prt) 40 meq PO BID [facility] Stop: 03/20/25 21:01 Last Admin: 03/20/25 08:12 Dose: 40 meq Documented By: FER Pravastatin Sodium (Pravastatin Sodium 80 Mg Tablet) 80 mg PO DAILY [facility] Last Admin: 03/20/25 08:13 Dose: 80 mg Documented By: FER Thiamine HCl (Thiamine Hcl 100 Mg Tablet) 100 mg PO DAILY [facility] Last Admin: 03/20/25 08:13 Dose: 100 mg Documented By: FER Labs 03/20/25 06:20 03/20/25 06:20 Labs: Laboratory Results - last 24 hr 03/20/25 06:20 MCV 106.9 H MCH 36.5 H MCHC 34.1 RDW 12.6 Plt Count 180 MPV 10.5 Immature Gran % (Auto) 0.6 H Neut % (Auto) 49.7 Lymph % (Auto) 24.3 [place] % (Auto) 22.7 H Eos % (Auto) 1.9 Baso % (Auto) 0.8 Lymph # (Auto) 1.9 [place] # (Auto) 1.8 H Eos # (Auto) 0.2 Baso # (Auto) 0.1 Abs Immat Gran (auto) 0.05 H Absolute Neuts (auto) 4.0 Absolute Nucleated RBC 0.000 Nucleated RBC % (auto) 0.0 Smear Tech's Comments VERIFIED Anion Gap 12 Estim Creat Clear Calc 123.8 Estimated GFR > 60 Random Glucose 91 Calcium 8.7 Total Bilirubin 0.6 AST 32 ALT 27 Alkaline Phosphatase 67 Total Protein 6.5 Albumin 3.5 Quality Stroke Does the patient have a stroke diagnosis?: Yes Reason for No Anti-thrombotic by Day Two: Not indicated VTE Prior VTE?: No VTE Risk Level:: Medical - moderate - high VTE Device Contraindication: N/A - Device Ordered VTE Drug Contraindication: N/A - Med Ordered
[2025-03-20 15:40] VITALS: BP 139/77; PULSE 101; RESP 20; TEMP 36.8; O2SAT 99
[2025-03-20 19:46] VITALS: BP 131/74; PULSE 103; RESP 18; TEMP 36.9; O2SAT 94
--- NOTE | 2025-03-20 21:23 | HO.PM.IMPN ---
Subjective Subjective Date of Service: 03/20/25 Interval History: PT evaluated the patient and recommended short-term rehab initially he was to go today however authorization is pending and hence it is being deferred for tomorrow Patient completed phenobarb protocol, medically optimized Review of Systems Review of Systems: Yes all other systems are reviewed and are negative Physical Exam Exam: Exam: General: A&O x2, oriented to person and situation only - not to time or place, comfortable, no pain Cardiac: No murmurs noted Respiratory: Normal breath sounds auscultated throughout all lung zones, without wheezing, rales. Normal rate. GI/ : No abdominal pain on palpation, no masses or distentions. MSK: Pain at the right shoulder, with reduced ROM Skin: Excoriation around nose, some facial ecchymosis Vital Signs: Vital Signs: Last Vital Signs Temp 98.5 F 03/20/25 19:46 Pulse 103 H 03/20/25 19:46 Resp 18 03/20/25 19:46 BP 131/74 03/20/25 19:46 Pulse Ox 94 03/20/25 19:46 O2 Del Method Room Air 03/20/25 19:46 BMI result Body Mass Index 20.8 Objective Data Active Medications Acetaminophen (Acetaminophen 325 Mg Tablet) 975 mg PO Q6H PRN PRN Reason: Pain, Mild (Pain Scale 1-3) Stop: 03/24/25 12:31 Last Admin: 03/19/25 20:51 Dose: 975 mg Documented By: RUI Aspirin (Aspirin 81 Mg Tab.Chew) 81 mg PO DAILY [facility] Last Admin: 03/20/25 08:13 Dose: 81 mg Documented By: FER Folic Acid (Folic Acid 1 Mg Tablet) 1 mg PO DAILY [facility] Last Admin: 03/20/25 08:13 Dose: 1 mg Documented By: FER Gabapentin (Gabapentin 600 Mg Tablet) 600 mg PO TID [facility] Last Admin: 03/20/25 19:48 Dose: 600 mg Documented By: RUI Heparin Sodium (Porcine) (Heparin Sodium,Porcine 5,000 Unit/Ml Vial) 5,000 unit SUBCUT Q12H [facility] Last Admin: 03/20/25 12:17 Dose: 5,000 unit Documented By: FER Thiamine HCl 200 mg/ Sodium (Chloride) 102 mls @ 204 mls/hr IV Q12H [facility] Last Infusion: 03/20/25 15:41 Dose: Infused Documented By: FER Magnesium Oxide (Magnesium [facility]ide 400 Mg Tablet) [facility] Last Admin: 03/20/25 16:56 Dose: 800 mg Documented By: FER Nicotine (Nicotine 14 Mg Patch.Td24) 14 mg TRANSDERMA DAILY [facility] Last Admin: 03/20/25 08:13 Dose: 14 mg Documented By: FER Oxcarbazepine (Oxcarbazepine 150 Mg Tablet) 150 mg PO BID [facility] Last Admin: 03/20/25 19:48 Dose: 150 mg Documented By: RUI Pharmacy Consult (Consult Rx Etoh Phenob Im/Po) 1 each MISCELLANE ONCE PRN; Protocol PRN Reason: Consult order Phenobarbital (Phenobarbital 30 Mg Tablet) 30 mg PO DAILY [facility]; Protocol Stop: 03/21/25 09:01 Last Admin: 03/20/25 08:13 Dose: 30 mg Documented By: FER Pravastatin Sodium (Pravastatin Sodium 80 Mg Tablet) 80 mg PO DAILY [facility] Last Admin: 03/20/25 08:13 Dose: 80 mg Documented By: FER Thiamine HCl (Thiamine Hcl 100 Mg Tablet) 100 mg PO DAILY [facility] Last Admin: 03/20/25 08:13 Dose: 100 mg Documented By: FER Labs 03/20/25 06:20 03/20/25 06:20 Labs: Laboratory Results - last 24 hr 03/20/25 06:20 MCV 106.9 H MCH 36.5 H MCHC 34.1 RDW 12.6 Plt Count 180 MPV 10.5 Immature Gran % (Auto) 0.6 H Neut % (Auto) 49.7 Lymph % (Auto) 24.3 [place] % (Auto) 22.7 H Eos % (Auto) 1.9 Baso % (Auto) 0.8 Lymph # (Auto) 1.9 [place] # (Auto) 1.8 H Eos # (Auto) 0.2 Baso # (Auto) 0.1 Abs Immat Gran (auto) 0.05 H Absolute Neuts (auto) 4.0 Absolute Nucleated RBC 0.000 Nucleated RBC % (auto) 0.0 Smear Tech's Comments VERIFIED Anion Gap 12 Estim Creat Clear Calc 123.8 Estimated GFR > 60 Random Glucose 91 Calcium 8.7 Total Bilirubin 0.6 AST 32 ALT 27 Alkaline Phosphatase 67 Total Protein 6.5 Albumin 3.5 Assessment and Plan (1) Delirium tremens: Status: Acute (2) Alcohol withdrawal seizure with delirium: Status: Acute Plan 55-year-old male with history of alcohol withdrawal, history of DTs and alcohol withdrawal seizures who was brought to the emergency department after fall and seizure admitted with severe metabolic acidosis 2/2 postictal state and starvation/alcoholic ketosis, found to have subacute brainstem infarct, c/b ETOH withdrawal with delirium tremens. Patient was evaluated by PT recommended short-term rehab, we are awaiting authorization hence likely will be discharged tomorrow pending authorization. Acute alcohol withdrawal Alcohol withdrawal seizure Delirium tremens No overt signs of withdrawal clinically. Confabulatory history, with progressive AMS in the setting of ETOH withdrawal. PLAN - Trend CIWA - Continue phenobarbital protocol - p.r.n. benzodiazepines/ barbiturates - Thiamine, folic acid supplementation - Addiction medicine input is greatly appreciated Seizure Disorder Multifactorial etiology due to etoh withdrawal, prior CVAs, central pontine myelinolysis Patient was started on Keppra by PCP Patient has not been compliant with medications Evaluation by Neurology regarding seizure disorder, with recommendations to place patient on oxcarbazepine PLAN - continue oxcarbazepine 150 mg b.i.d. p.o. - discontinue Keppra - neurology recommendations appreciated - continue seizure precautions - aspiration precautions - p.r.n. diazepam for seizures Acute high anion gap metabolic acidosis - - Lactic acidosis: Likely due to acute lactic acidosis from seizure. Not due to sepsis - Ketosis; elevated beta hydroxybutyrate possibly 2/2 ETOH versus malnourishment PLAN - IVF - encourage hydration and p.o. intake Chronic lacunar pontine stroke Global cerebral atrophy Small-vessel occlusive disease Subacute CVA incidentally identified on CT brain 03/15/2025 on admission. MRI brain performed, revealing NO evidence of acute or hemorrhagic CVA. Neurology following, recommendations greatly appreciated PLAN - neurology recommendations appreciated - continue aspirin 81 mg a day p.o. - continue pravastatin 80 mg OD p.o. - speech and swallow evaluation - PT/OT evaluation Mechanical fall Fractured nasal bridge Multifactorial fall; likely 2/2 mechanical element, as well as intoxication. Possibly 2/2 central pontine myelinolysis with imbalance/ element of Wernicke or Korsakoff encephalopathy PLAN - fall precautions - seizure precautions - PT evaluation and OT evaluation - high-dose thiamine infusion IV Traumatic rhabdomyolysis Suffered with fall, with increasing CK from 400-800. No evidence of acute kidney injury or other organ dysfunction PLAN - trend BMP - LR 100 cc/hour - trend CPK Hypomagnesemia Hypokalemia 2/2 malnourishment in the setting of severe ETOH use PLAN - K> 4 - mg > 2 - magnesium 800 b.i.d. p.o. - 2 g IV - Repeat levels urgently Hypocalcemia Likely exacerbated by low magnesium levels Replace magnesium and repeat in a.m. Alcoholic hepatitis Hyperbilirubinemia In the setting of ETOH abuse. Maddrey score within normal limits-no indication for at this time. No evidence of cirrhosis ascites or hepatic encephalopathy. No evidence of acute decompensated but by alcoholic hepatitis. Trend LFTs Avoid hepatotoxins Tobacco dependence Smoking cessation advised NRT - VTE: Heparin 5000 t.i.d. SQ - CODE STATUS: Full code - DIET: Regular This note is constructed using voice recognition software. While every effort has been made to ensure accuracy, helminthology teacher errors may have been included. Disposition: He is HDS, completed Phenobarb protocol, PT evaluated the patient and recommended short-term rehab, awaiting authorization Total time managing care of this patient today: 45 minutes. Quality Stroke Does the patient have a stroke diagnosis?: Yes Reason for No Anti-thrombotic by Day Two: Not indicated VTE Prior VTE?: No VTE Risk Level:: Medical - moderate - high VTE Device Contraindication: N/A - Device Ordered VTE Drug Contraindication: N/A - Med Ordered
[2025-03-20 23:37] VITALS: BP 124/60; PULSE 95; RESP 18; TEMP 36.4; O2SAT 93
[2025-03-21] MEDS: Thiamine HCL 200 MG in 0.9 % Sodium Chloride 100 ML 204 MG IV (02:58)
[2025-03-21 03:11] VITALS: BP 141/83; PULSE 82; RESP 18; TEMP 36.4; O2SAT 96
[2025-03-21 07:08] LABS: Hematocrit 32.9 % (42.0-52.0); Hemoglobin 11.3 g/dl (14.0-18.0); Imm Gran Abs Auto 0.04 X10*3/uL (0.00-0.03); Imm Gran Pct Auto 0.5 % (0.0-0.4); Lymphocytes Absolute Auto 1.8 X10*3/uL (1.2-4.9); MANUAL DIFF FLAG SCAN; Mean Corpuscular HGB Conc 34.3 g/dl (31.0-36.0); Mean Corpuscular Hemoglobin 37.4 pg (27.0-33.0); Mean Corpuscular Volume 108.9 fL (80.0-98.0); NRBC Abs Auto 0.000 X10*3/uL (0.0-0.012); NRBC Pct Auto 0.0 /100WBC (0.0-0.2); Platelet Count 220 X10*3/uL (160-400); Red Blood Count 3.02 X10*6/uL (4.60-5.80); SCAN SMEAR FLAG 1; White Blood Count 8.2 X10*3/uL (4.8-10.8)
--- NOTE | 2025-03-21 07:19 | HO.PM.IMPN ---
Subjective Subjective Date of Service: 03/21/25 Physical Exam Vital Signs: Vital Signs: Last Vital Signs Temp 97.6 F 03/21/25 03:11 Pulse 82 03/21/25 03:11 Resp 18 03/21/25 03:11 BP 141/83 H 03/21/25 03:11 Pulse Ox 96 03/21/25 03:11 O2 Del Method Room Air 03/21/25 03:11 BMI result Body Mass Index 20.8 Objective Data Active Medications Acetaminophen (Acetaminophen 325 Mg Tablet) 975 mg PO Q6H PRN PRN Reason: Pain, Mild (Pain Scale 1-3) Stop: 03/24/25 12:31 Last Admin: 03/19/25 20:51 Dose: 975 mg Documented By: RUI Aspirin (Aspirin 81 Mg Tab.Chew) 81 mg PO DAILY [facility] Last Admin: 03/20/25 08:13 Dose: 81 mg Documented By: FER Folic Acid (Folic Acid 1 Mg Tablet) 1 mg PO DAILY [facility] Last Admin: 03/20/25 08:13 Dose: 1 mg Documented By: FER Gabapentin (Gabapentin 600 Mg Tablet) 600 mg PO TID [facility] Last Admin: 03/20/25 19:48 Dose: 600 mg Documented By: RUI Heparin Sodium (Porcine) (Heparin Sodium,Porcine 5,000 Unit/Ml Vial) 5,000 unit SUBCUT Q12H [facility] Last Admin: 03/21/25 02:20 Dose: 5,000 unit Documented By: RUI Thiamine HCl 200 mg/ Sodium (Chloride) 102 mls @ 204 mls/hr IV Q12H [facility] Last Infusion: 03/21/25 03:29 Dose: Infused Documented By: RUI Magnesium Oxide (Magnesium Oxide 400 Mg Tablet) 800 mg PO BIDPC [facility] Last Admin: 03/20/25 16:56 Dose: 800 mg Documented By: FER Nicotine (Nicotine 14 Mg Patch.Td24) 14 mg TRANSDERMA DAILY [facility] Last Admin: 03/20/25 08:13 Dose: 14 mg Documented By: FER Oxcarbazepine (Oxcarbazepine 150 Mg Tablet) 150 mg PO BID [facility] Last Admin: 03/20/25 19:48 Dose: 150 mg Documented By: RUI Pharmacy Consult (Consult Rx Etoh Phenob Im/Po) 1 each MISCELLANE ONCE PRN; Protocol PRN Reason: Consult order Phenobarbital (Phenobarbital 30 Mg Tablet) 30 mg PO DAILY [facility]; Protocol Stop: 03/21/25 09:01 Last Admin: 03/20/25 08:13 Dose: 30 mg Documented By: FER Pravastatin Sodium (Pravastatin Sodium 80 Mg Tablet) 80 mg PO DAILY [facility] Last Admin: 03/20/25 08:13 Dose: 80 mg Documented By: FER Thiamine HCl (Thiamine Hcl 100 Mg Tablet) 100 mg PO DAILY [facility] Last Admin: 03/20/25 08:13 Dose: 100 mg Documented By: FER Labs 03/20/25 06:20 03/20/25 06:20 Labs: Laboratory Results - last 24 hr 03/20/25 06:20 MCV 106.9 H MCH 36.5 H MCHC 34.1 RDW 12.6 Plt Count 180 MPV 10.5 Immature Gran % (Auto) 0.6 H Neut % (Auto) 49.7 Lymph % (Auto) 24.3 Irwin % (Auto) 22.7 H Eos % (Auto) 1.9 Baso % (Auto) 0.8 Lymph # (Auto) 1.9 Irwin # (Auto) 1.8 H Eos # (Auto) 0.2 Baso # (Auto) 0.1 Abs Immat Gran (auto) 0.05 H Absolute Neuts (auto) 4.0 Absolute Nucleated RBC 0.000 Nucleated RBC % (auto) 0.0 Smear Tech's Comments VERIFIED Anion Gap 12 Estim Creat Clear Calc 123.8 Estimated GFR > 60 Random Glucose 91 Calcium 8.7 Total Bilirubin 0.6 AST 32 ALT 27 Alkaline Phosphatase 67 Total Protein 6.5 Albumin 3.5 Quality Stroke Does the patient have a stroke diagnosis?: Yes Reason for No Anti-thrombotic by Day Two: Not indicated VTE Prior VTE?: No VTE Risk Level:: Medical - moderate - high VTE Device Contraindication: N/A - Device Ordered VTE Drug Contraindication: N/A - Med Ordered
[2025-03-21 07:36] LABS: Alanine Aminotransferase 24 U/L (0-40); Albumin Level 3.7 g/dL (3.5-5.0); Alkaline Phosphatase 75 U/L (39-117); Aspartate Amino Transferase 34 U/L (5-37); Blood Urea Nitrogen 11 mg/dL (9-16); Calcium 9.4 mg/dL (8.4-10.2); Creatinine Clr Calc Pharmacy 110.8; Estimated Glomerular Filt Rate > 60; Total Protein 7.0 g/dL (6.5-8.0)
[2025-03-21 07:48] LABS: Anion Gap 13 (12-20); Carbon Dioxide 27 mmol/L (22-29); Chloride 105 mmol/L (96-108); Potassium 4.5 mmol/L (3.3-5.1); Sodium 140 mmol/L (135-145)
[2025-03-21 07:55] VITALS: BP 136/85; PULSE 79; RESP 18; TEMP 36.3; O2SAT 98
[2025-03-21] MEDS: Nicotine 14 MG PATCH.TD24 TRANSDERMA (07:58)
[2025-03-21 12:00] VITALS: BP 134/78; PULSE 70; RESP 18; TEMP 36.5; O2SAT 97
[2025-03-21] MEDS: Lidocaine 4 % Patch ADH..PATCH 2 PATCH TRANSDERMA (13:02)
--- NOTE | 2025-03-21 13:04 | P.DS_ITS ---
DS: Providers Provider Date of Service: 03/21/25 Date of admission: 03/15/25 10:57 Date of discharge: 03/21/25 Primary care physician: [facility] Consults: 03/15/25 10:23 Addiction Medicine Provider Routine Consulting Provider: Addiction Covering Reason for consultation: etoh withdrawal with seizure Has provider been notified: No 03/15/25 10:51 Consult to Neurology Routine Consulting Provider: [facility] Reason for consultation: etoh abuse; seizures; ?subacte stroke; ?need for antiepileptics Has provider been notified: No 03/15/25 21:35 Addiction Medicine Provider Routine Consulting Provider: Addiction Covering Reason for consultation: excessive drinking 03/15/25 21:37 Consult to Wound Care Routine Consulting Provider: [facility] Reason for consultation: abrasion on face DS: Diagnosis Discharge Diagnosis (1) Delirium tremens: Status: Acute (2) Alcohol withdrawal seizure with delirium: Status: Acute DS: Summary Hospital Course Hospital Course: 55-year-old male with history of alcohol withdrawal, history of DTs and alcohol withdrawal seizures who was brought to the emergency department after fall and seizure admitted with severe metabolic acidosis 2/2 postictal state and starvation/alcoholic ketosis, found to have subacute brainstem infarct, c/b ETOH withdrawal with delirium tremens. Acute alcohol withdrawal- resolved Alcohol withdrawal seizure-resolved Delirium tremens -resolved Presented with history of severe alcohol use, prior DTs and withdrawal seizures. Developed acute withdrawal with seizure and DTs during admission. Managed with phenobarbital protocol, PRN benzodiazepines/barbiturates, and CIWA monitoring. Confabulatory history, with progressive AMS in the setting of ETOH withdrawal. No further overt withdrawal symptoms at discharge. Thiamine and folic acid supplementation provided. Addiction medicine consulted. Discharge Plan:?Continue thiamine and folic acid OP. Outpatient addiction medicine follow-up. Strict alcohol abstinence advised. Seizure Disorder discontinued Keppra, initiated oxcarbazepine-with good effect Multifactorial etiology due to etoh withdrawal, prior CVAs, central pontine myelinolysis Patient was started on Keppra by PCP which was discontinued during this admission. Patient has not been compliant with medications Evaluation by Neurology regarding seizure disorder, with recommendations to place patient on oxcarbazepine which he will continue until he is seen by Neurology. Patient needs to follow up with outpatient Neurology. Patient advised about seizure precautions aspiration precautions. Chronic lacunar pontine stroke Global cerebral atrophy Small-vessel occlusive disease Subacute CVA incidentally identified on CT brain 03/15/2025 on admission. MRI brain performed, revealing NO evidence of acute or hemorrhagic CVA. Neurology consulted-patient initiated on aspirin, statin, PTOT. Echo and stroke workup unremarkable. Patient to follow up with outpatient Neurology. Medication compliance reiterated. Mechanical fall, Fractured nasal bridge, chronic right shoulder pain from prior falls-symptomatic treatment with nonnarcotic medications PTOT Multifactorial fall; likely 2/2 mechanical element, as well as intoxication. Possibly 2/2 central pontine myelinolysis with imbalance/ element of Wernicke or Korsakoff encephalopathy fall precautions , seizure precautions, PT evaluation and OT evaluation, high- dose thiamine infusion IV Traumatic rhabdomyolysis likely in the setting of fall unknown downtime and seizures, resolved with fluids. Hypomagnesemia ,Hypokalemia , HAGMA, hypocalcemia, - 2/2 malnourishment in the setting of severe ETOH use-repleted to goal after checking daily Alcoholic hepatitis , Hyperbilirubinemia monitor likely in the setting of alcohol abuse Tobacco dependence resolved with nicotine supplementation Patient was on DVT prophylaxis with Lovenox while inpatient This note is constructed using voice recognition software. While every effort has been made to ensure accuracy, laborer ship[employer] errors may have been included. Time spent discussing smoking cessation with patient: more than 10 minutes Time Attestation Discharge Coordination Time (in mins): 45 Quality: Safe Use of Opioids Does Pt have an Active Cancer Diagnosis on the Problem List?: No Quality: Stroke Does the patient have a stroke diagnosis?: Yes Reason for No Anti-thrombotic at DC: N/A - Med Ordered Reason for No Anticoagulant at DC: Complication of medical care Reason Not Initiating IV-Tpa: Not indicated Reason for No Anti-thrombotic by Day Two: Not indicated Reason for No Statin at DC: N/A - Med Ordered Physical Exam Vital Signs: Vital Signs: Last Vital Signs Temp 97.7 F 03/21/25 12:00 Pulse 70 03/21/25 12:00 Resp 18 03/21/25 12:00 BP 134/78 03/21/25 12:00 Pulse Ox 97 03/21/25 12:00 O2 Del Method Room Air 03/21/25 12:00 BMI result Body Mass Index 20.8 DS: Data Data Completed and Pending Completed studies during hospitalization [Text1]: Procedures Detoxification Services for Substance Abuse Treatment (08/06/24) Insertion of Infusion Device into Left Brachial Vein, Percutaneous Approach (08/06/24) Insertion of Infusion Device into Upper Vein, Percutaneous Approach (08/06/24) Introduction of Vasopressor into Peripheral Vein, Percutaneous Approach (08/06/24) Reposition Right Humeral Shaft, Open Approach (08/06/24) Transfusion of Nonautologous Red Blood Cells into Peripheral Vein, Percutaneous Approach (08/06/24) Labs on day of discharge: Laboratory Results - last 24 hr 03/21/25 06:32 WBC 8.2 RBC 3.02 L Hgb 11.3 L Hct 32.9 L MCV 108.9 H MCH 37.4 H MCHC 34.3 RDW 12.6 Plt Count 220 MPV 10.5 Immature Gran % (Auto) 0.5 H Neut % (Auto) 53.0 Lymph % (Auto) 21.4 Brooks % (Auto) 22.3 H Eos % (Auto) 2.1 Baso % (Auto) 0.7 Lymph # (Auto) 1.8 Brooks # (Auto) 1.8 H Eos # (Auto) 0.2 Baso # (Auto) 0.1 Abs Immat Gran (auto) 0.04 H Absolute Neuts (auto) 4.3 Absolute Nucleated RBC 0.000 Nucleated RBC % (auto) 0.0 Smear Tech's Comments VERIFIED Sodium 140 Potassium 4.5 D Chloride 105 Carbon Dioxide 27 Anion Gap 13 BUN 11 Creatinine 0.76 Estim Creat Clear Calc 110.8 Estimated GFR > 60 Random Glucose 80 Calcium 9.4 D Total Bilirubin 0.4 AST 34 ALT 24 Alkaline Phosphatase 75 Total Protein 7.0 Albumin 3.7 Discharge Plan Discharge Anticipated Discharge Date/Time: 03/20/25 14:11 Patient Disposition: Xfer SNF Discharge Diagnosis: HAL 2/2 AUD Referrals: [facility] [Other] - 1 Day Referral Note: SHORT TERM REHAB Catalina Liang MD [Physician, Internal Medicine] - 1 Week Discharge Medications: New acetaminophen 325 mg Tablet 975 mg PO Q6H PRN (Reason: Pain, Mild (Pain Scale 1-3)) 30 Days Qty: 60 0RF pravastatin 80 mg Tablet 80 mg PO DAILY 30 Days Qty: 30 3RF aspirin 81 mg Tablet,Chewable 81 mg PO DAILY 30 Days Qty: 30 3RF gabapentin 600 mg Tablet 600 mg PO TID 30 Days Qty: 90 3RF oxcarbazepine 150 mg Tablet 150 mg PO BID 30 Days Qty: 60 3RF folic acid 1 mg Tablet 1 mg PO DAILY 30 Days Qty: 30 3RF thiamine mononitrate (vit B1) 100 mg Tablet 100 mg PO DAILY 30 Days Qty: 60 3RF Discharge Orders: Discharge Order (Routine); Ordered 03/21/25 Ordered By: Michelle Randolph Diet: Low salt diet Activity on Discharge: As tolerated Stand Alone Forms: Patient Portal Discharge page Print Language: [place] Care Plan Goals: A please abstain from alcohol Patient advised to follow outpatient rehabs and seek care if needed Patient advised to follow with PCP Patient advised to adhere to aspirin and statin. Patient advised to follow seizure precautions and continue oxcarbazepine and outpatient Neurology follow-up Patient needs to continue with PTOT For pain control for traumatic fall, we are treating him with non opioid pain meds like Tylenol lidocaine etc. patient agreeable Health Concerns: See above Plan of Treatment: See above Assessment: See above Patient Instructions: Alcohol Withdrawal (DC), Generalized Tonic Clonic Seizures (DC)
--- NOTE | 2025-03-21 13:38 | MHC.CM.PN ---
PT MEDICALLY CLEARED FOR DC TO STR AT [facility] [place] SUMMARY W/LESS THAN 30DAY FAXED TO [facility] AND [facility] FOR BLS TRANSPORT AT 2PM.
--- NOTE | 2025-03-21 17:35 | P.CDIM_ITS ---
PROVIDER RESPONSE TEXT: To clarify, the appropriate diagnosis supported by the clinical indicators: Moderate QUERY TEXT: PHYSICIAN'S DOCUMENTATION REQUEST Date of Query: 03/21/2025 09:33 AM EST Patient Name: Chris Goodman Admit Date: 03/15/2025 Dear Michelle Randolph MD, A review of the medical record indicates additional documentation may be needed. Please review below and update the documentation accordingly. Documentation includes the diagnosis of malnutrition. Clinical indicators: Progress note 03/18/25 - elevated beta hydroxybutyrate possibly 2/2 ETOH vs. malnourishment. Hypomagnesemia, hypokalemia 2/2 malnourishment in the setting of severe ETOH use. Suffered a fall, Traumatic rhabdomyolysis, starvation/alcoholic ketosis. BMI 20.8 WT 69.7kg If possible, please provide additional specificity regarding the severity of the malnutrition using the above information: Mild Moderate Severe Other (explain) Clinically unable to determine (explain) Thank you, Karla Bridges, CCS, CDIS Use of terms such as suspected, likely, concern for, or probable (associated with a specific diagnosis that is being evaluated, monitored, or treated as if it exists) are acceptable and can be coded in the inpatient setting, when documented at the time of discharge. Please use your independent medical judgment in providing your response. THIS QUERY IS PART OF THE PERMANENT MEDICAL RECORD
== END 2025-03-21 14:54 | disposition skilled nursing facility (03) | DRG 775 ==
LOC: HO.ED 10:06 → HO.EDOVER 10:58 → HO.IMC 19:53
PROVIDERS: Hospitalist; Admitting Provider Physician Assistant Medical; Emergency Provider Emergency Medicine; PCP Internal Medicine; Visit Provider Student in an Organized Health Care Education/Training Program
DX: F10.231 Alcohol dependence with withdrawal delirium (principal); E44.0 Moderate protein-calorie malnutrition; K70.10 Alcoholic hepatitis without ascites; E51.2 Wernicke's encephalopathy; R56.9 Unspecified convulsions; E83.51 Hypocalcemia; T79.6XXA Traumatic ischemia of muscle, initial encounter; S02.2XXA Fracture of nasal bones, initial encounter for closed fracture; E87.1 Hypo-osmolality and hyponatremia; F10.26 Alcohol dependence with alcohol-induced persisting amnestic disorder; G37.2 Central pontine myelinolysis; F17.210 Nicotine dependence, cigarettes, uncomplicated; W19.XXXA Unspecified fall, initial encounter; Z71.6 Tobacco abuse counseling; I69.398 Other sequelae of cerebral infarction; Y90.1 Blood alcohol level of 20-39 mg/100 ml; E83.42 Hypomagnesemia; E87.6 Hypokalemia; Z91.199 Patient's noncompliance with other medical treatment and regimen due to unspecified reason; Z68.20 Body mass index [BMI] 20.0-20.9, adult; Z79.899 Other long term (current) drug therapy
CPT/HCPCS: 36415; 70450; 70486; 70551; 71045; 72125; 73030; 80048; 80053; 80061; 80076; 80307; 82010; 82550; 82803; 82947; 83605; 83735; 84484; 85025; 85610; 93005; 97162; 97166; 97530; 99285; J1644; J1953; J2250; J2359; J2560; J3360; J3411; J3475; J3480; J7120

== ENCOUNTER → 2025-03-15 07:54 | Outpatient (BNV) | payer MEDICAID, SELFPAY | PROVIDERS: Emergency Provider Emergency Medicine; Visit Provider Radiology Diagnostic Radiology | DX: S09.90XA Unspecified injury of head, initial encounter (principal); W18.30XA Fall on same level, unspecified, initial encounter; R22.0 Localized swelling, mass and lump, head; R06.02 Shortness of breath | CPT/HCPCS: 70450; 70486; 71045; 72125; 73030 ==

== ENCOUNTER 2025-03-15 10:57 | Outpatient (BNV) | payer MEDICAID, SELFPAY | END 2025-03-15 14:39 | PROVIDERS: Admitting Provider Physician Assistant Medical; Emergency Provider Emergency Medicine; PCP Dentist General Practice; Visit Provider Internal Medicine | DX: I49.3 Ventricular premature depolarization (principal) | CPT/HCPCS: 93010 ==

== ENCOUNTER 2025-03-15 10:57 | Outpatient (BNV) | payer MEDICAID, SELFPAY | END 2025-03-16 14:45 | PROVIDERS: Admitting Provider Physician Assistant Medical; Emergency Provider Emergency Medicine; PCP Dentist General Practice; Visit Provider Radiology Diagnostic Radiology | DX: R56.9 Unspecified convulsions (principal); F10.929 Alcohol use, unspecified with intoxication, unspecified; W19.XXXA Unspecified fall, initial encounter | CPT/HCPCS: 70551 ==

== ENCOUNTER → 2025-03-15 10:57 | Outpatient (BNV) | payer MEDICAID, SELFPAY | PROVIDERS: Admitting Provider Physician Assistant Medical; Emergency Provider Emergency Medicine; PCP Dentist General Practice; Visit Provider Physician Assistant Medical | DX: F10.930 Alcohol use, unspecified with withdrawal, uncomplicated (principal); E87.29 Other acidosis; R56.9 Unspecified convulsions | CPT/HCPCS: 99223 ==

== ENCOUNTER → 2025-03-15 10:57 | Outpatient (BNV) | payer OTHER, SELFPAY | PROVIDERS: Admitting Provider Physician Assistant Medical; Emergency Provider Emergency Medicine; PCP Dentist General Practice; Visit Provider Nurse Practitioner Psychiatric/Mental Health | DX: F10.20 Alcohol dependence, uncomplicated (principal) | CPT/HCPCS: 99232 ==

== ENCOUNTER → 2025-03-15 10:57 | Outpatient (BNV) | payer MEDICAID, SELFPAY | PROVIDERS: Admitting Provider Physician Assistant Medical; Emergency Provider Emergency Medicine; PCP Dentist General Practice; Visit Provider Psychiatry & Neurology Neurology | DX: G40.909 Epilepsy, unspecified, not intractable, without status epilepticus (principal); F03.90 Unspecified dementia, unspecified severity, without behavioral disturbance, psychotic disturbance, mood disturbance, and anxiety; F10.20 Alcohol dependence, uncomplicated; I63.9 Cerebral infarction, unspecified; G37.2 Central pontine myelinolysis | CPT/HCPCS: 99222 ==

== ENCOUNTER 2025-03-30 09:02 | Outpatient (REF) | payer MEDICAID, SELFPAY | END 2025-03-30 09:03 | disposition home or self-care (01) | LOC: HO.HOSX 09:02 | PROVIDERS: Visit Provider Physician Assistant | DX: Z13.89 Encounter for screening for other disorder (principal) ==